=== PATIENT | male | born 1945 | race Caucasian/White ===

== ENCOUNTER 2022-08-24 11:36 | Inpatient (IN) ==
[2022-08-24 12:24] LABS: Appearance Urine Clear (Clear); Bilirubin Urine Negative (Negative); Blood Urine Negative (Negative); Color Urine Yellow; Glucose Urine UA 1+ (Negative); Ketones Urine Negative (Negative); Leukocyte Esterase Urine Negative (Negative); Nitrite Urine Negative (Negative); Protein Urine Negative (Negative); Urobilinogen Urine Negative (Negative)
[2022-08-24] MEDS ORDERED: SODIUM CHLORIDE 0.9% 500 ML IV ONE (12:28)
--- NOTE | 2022-08-24 12:32 | Emergency Department Note ---
History of Present Illness General Chief complaint: Dehydration Stated complaint: DR HOANG, DEHYDRATION Time Seen by Provider: 08/24/22 12:16 Source: patient, RN notes reviewed and old records reviewed (I have reviewed the records from the [facility] office visit today) Mode of arrival: ambulatory Limitations: no limitations History of Present Illness This patient comes in after being sent over from his primary care doctor's office. He has multiple issues going on they were concerned about labs and the need for imaging and further evaluation. The patient says he has not felt well about 18 months they did recent labs which showed worsening of his renal insufficiency they are also worried about his pancreas. They said his liver functions been up a little bit lately. He is lost 7 pounds since June he also has had some dark stool since yesterday which he says is tarry he is felt lightheaded and dizzy for the last several weeks denies chest pain shortness of breath or cough. No focal numbness weakness no fall or trauma no vomiting. He has been having stomach issues after being on chronic Augmentin for the last 7 to 8 months and they put him on omeprazole 20 mg to increase this to 40 he was getting worse he said they took him off of it now he is 80% better. Home Medications Medication Instructions Recorded Confirmed Type ascorbic acid (vitamin C) 500 mg 500 mg PO DAILY 11/08/21 08/24/22 History tablet (Vitamin C) aspirin 81 mg tablet,delayed 81 mg PO DAILY 11/08/21 08/24/22 History release atorvastatin 40 mg tablet 40 mg PO DAILY 11/08/21 08/24/22 History cholecalciferol (vitamin D3) 50 50 mcg PO DAILY 11/08/21 08/24/22 History mcg (2,000 unit) capsule (Vitamin D3) coQ10 (ubiquinol) 200 mg capsule 200 mg PO DAILY 11/08/21 08/24/22 History docusate sodium 100 mg capsule 100 mg PO BID PRN Constipation 11/08/21 08/24/22 History dulaglutide 1.5 mg/0.5 mL 3 mg subcut WK 11/08/21 08/24/22 History subcutaneous pen injector (Trulicity) ferrous sulfate 325 mg (65 mg 325 mg PO DAILY 11/08/21 08/24/22 History iron) tablet insulin glargine 100 unit/mL (3 30 unit subcut HS 11/08/21 08/24/22 History mL) subcutaneous pen (Lantus Solostar U-100 Insulin) levothyroxine 88 mcg tablet 88 mcg PO DAILYBB 11/08/21 08/24/22 History metoprolol succinate 100 mg 100 mg PO BID 11/08/21 08/24/22 History tablet,extended release 24 hr nitroglycerin 0.4 mg sublingual 0.4 mg sublingual DIRECTED PRN 11/08/21 08/24/22 History tablet (Nitrostat) Chest Pain omega 3-xoh-kcq-fish oil 1,200 mg 1 cap PO DAILY 11/08/21 08/24/22 History (144 mg-216 mg) capsule (Fish Oil) ondansetron HCl 4 mg tablet 4 mg PO Q8H PRN Nausea 11/08/21 08/24/22 History polyethylene glycol 3350 17 17 g PO DAILY PRN Constipation 11/08/21 08/24/22 History gram/dose oral powder (Miralax) Lactobacillus acidophilus 10 10,000 mmu cells PO DAILY 08/24/22 08/24/22 History billion cell capsule (Probiotic) amoxicillin 500 mg capsule 2,000 mg PO BID 08/24/22 08/24/22 History dicyclomine 10 mg capsule 10 mg PO BID PRN ABD CRAMPING 08/24/22 08/24/22 History furosemide 20 mg tablet 20 mg PO QAM 08/24/22 08/24/22 History losartan 25 mg tablet 12.5 mg PO QAM 08/24/22 08/24/22 History rivaroxaban 20 mg tablet (Xarelto) 20 mg PO QDD 08/24/22 08/24/22 History Allergies Allergy/AdvReac Type Severity Reaction Status Date / Time Sulfa (Sulfonamide Allergy Unknown CHILDHOOD Verified 08/24/22 16:46 Antibiotics) ALLERGY--CAN'T REMEMBER tramadol AdvReac Severe SEVERE Verified 08/24/22 16:46 VOMITING omeprazole AdvReac Intermediate PER PT Verified 08/24/22 16:47 "DID THE OPPOSITE, MADE ME WORSE". 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 w/ L 2 L & R 2 L collats Chylothorax Diabetes mellitus Hyperlipidemia Hypertension Hypothyroid Ischemic cardiomyopathy LVEF 30% post CABG; GRADE I diastolic dysfunction, NYHA class 2 Surgical History History of coronary artery bypass graft CABG x 3 (PAEZ -LAD; AO-RCA; AO-OM1 w/ graphic SVG on 05/30/2021 Family History (Updated 08/24/22 @ 19:16 by [place] Haynes PA-C) Other Heart disease Social History (Updated 08/24/22 @ 18:20 by [place] Haynes PA-C) Smoking Status: Former smoker Tobacco Type: Cigarettes packs per day: 1; Hx Alcohol Use: Yes (no current use) Hx Substance Use: No Preferred Language: Dutch Current Living Situation: Spouse Feels Safe at Home: Yes Review of Systems A total of 10 systems reviewed and were otherwise negative Physical Exam Vital Signs Vital Signs - 24 hr 08/24/22 11:43 08/24/22 12:16 08/24/22 12:30 Temperature 36 C L Temperature Source Temporal Artery Scan Pulse Rate 82 79 75 Respiratory Rate 20 13 Respiratory Effort / Characteristics Non-Labored Spontaneous Respiratory Depth Normal Blood Pressure 116/62 112/62 Blood Pressure Mean 80 78 Pulse Oximetry 100 100 Oxygen Delivery Method Room Air Room Air Sepsis New/Unexplained Change in Mental Status N/A Sepsis Action Taken by Nursing No Action Required 08/24/22 13:00 08/24/22 13:30 08/24/22 14:00 Temperature Temperature Source Pulse Rate 73 74 73 Respiratory Rate 19 8 L 12 Respiratory Effort / Characteristics Respiratory Depth Blood Pressure 116/66 113/60 104/55 L Blood Pressure Mean 82 77 71 Pulse Oximetry 99 100 98 Oxygen Delivery Method Room Air Room Air Room Air Sepsis New/Unexplained Change in Mental Status Sepsis Action Taken by Nursing 08/24/22 14:30 08/24/22 15:00 08/24/22 15:30 Temperature Temperature Source Pulse Rate 83 68 65 Respiratory Rate 20 16 10 L Respiratory Effort / Characteristics Respiratory Depth Blood Pressure 113/58 L 115/57 L 112/59 L Blood Pressure Mean 76 76 76 Pulse Oximetry 100 100 100 Oxygen Delivery Method Room Air Room Air Room Air Sepsis New/Unexplained Change in Mental Status Sepsis Action Taken by Nursing 08/24/22 16:00 08/24/22 16:50 08/24/22 17:00 Temperature Temperature Source Pulse Rate 73 81 78 Respiratory Rate 14 13 12 Respiratory Effort / Characteristics Respiratory Depth Blood Pressure 119/65 111/57 L 114/57 L Blood Pressure Mean 83 75 76 Pulse Oximetry 100 100 100 Oxygen Delivery Method Room Air Room Air Room Air Sepsis New/Unexplained Change in Mental Status Sepsis Action Taken by Nursing 08/24/22 17:30 08/24/22 18:00 08/24/22 18:30 Temperature Temperature Source Pulse Rate 78 79 89 Respiratory Rate 12 19 17 Respiratory Effort / Characteristics Respiratory Depth Blood Pressure 114/58 L 114/63 143/87 H Blood Pressure Mean 76 80 105 Pulse Oximetry 100 100 100 Oxygen Delivery Method Room Air Room Air Room Air Sepsis New/Unexplained Change in Mental Status Sepsis Action Taken by Nursing General: Well developed well nourished 10 acutely ill-appearing older male who in no acute distress, breathing comfortably on room air. Normal speech HEENT: Normal cephalic atraumatic. Pupils are equal round and reactive to light. Extraocular movements are intact. Oropharynx is pink with moist mucous membranes. No swelling of the mouth lips or tongue. Neck: Supple with a midline trachea. No meningeal signs or stiffness, no JVD or bruits. No Stridor. Chest: Clear to auscultation bilaterally. No wheezes or rhonchi. No increased work of breathing. Heart: Regular rate and rhythm. He does have a 2 out of 6 systolic murmur Abdomen: Soft nontender, nondistended without rebound guarding or rigidity. Extremities: No cyanosis clubbing or edema. No calf tenderness or assymetry Spine/Back. Non tender to palpation. No CVA tenderness Skin: Good turgor without rashes. Neurologic exam: Cranial nerves two through 12 are intact. Motor and sensation are intact and symmetrical throughout. Course Administered Medications Discontinued Medications Sodium Chloride (Nss) 500 mls @ 999 mls/hr IV .Q31M ONE Stop: 08/24/22 12:58 Last Infusion: 08/24/22 13:35 Dose: 0 mls/hr Documented By: Admin: 08/24/22 12:53 Dose: 999 mls/hr Documented By: KJ Medical Decision Making Differential Diagnosis Dehydration, infection, anemia, GI bleed, GI illness, pancreatitis, electrolyte or metabolic abnormality, sepsis Medical Records Attestation: I reviewed the patient's medical records. Home Medications Current Medication List: was personally reviewed by me Laboratory Data Attestation: I reviewed the patient's lab results. 08/24/22 11:55 08/24/22 11:55 Lab Results 08/24/22 08/24/22 08/24/22 Range/Units 11:55 11:55 11:55 WBC 4.15 L (4.8-10.8) K/ul RBC 4.17 L (4.70-6.10) M/uL Hgb 12.1 L (14.0-18.0) g/dl Hct 36.6 L (42.0-52.0) % MCV 87.8 (80.0-100.0) fL MCH 29.0 (25.0-34.0) pg MCHC 33.1 (32.0-36.0) g/dL RDW Std Deviation 43.8 (36.4-46.3) fL RDW Coeff of Lencho 13.7 (11.5-14.5) % Plt Count 180 (130-400) K/uL MPV 11.3 (9.4-12.4) fL Immature Gran % (Auto) 0.2 % Neut % (Auto) 63.7 % Lymph % (Auto) 20.7 % [place] % (Auto) 12.8 % Eos % (Auto) 1.2 % Baso % (Auto) 1.4 % Neut # (Auto) 2.64 (1.40-6.50) K/uL Lymph # (Auto) 0.86 L (1.2-3.4) K/uL [place] # (Auto) 0.53 (0.11-0.59) K/uL Eos # (Auto) 0.05 (0-0.50) K/uL Baso # (Auto) 0.06 (0-0.2) K/uL Immature Gran # (Auto) 0.01 (0.01-0.20) K/uL PT 11.9 (9.0-12.0) Seconds INR 1.1 (0.9-1.1) APTT 32.8 H (21.0-31.0) Seconds PTT Ratio 1.2 Sodium 133 L (136-145) mmol/L Potassium 4.4 (3.5-5.1) mmol/L Chloride 102 (98-107) mmol/L Carbon Dioxide 25 (21-32) mmol/L Anion Gap 6 (3-11) BUN 53 H (6-23) mg/dl Creatinine 2.04 H (0.6-1.4) mg/dl Est Cr Clr Drug Dosing Not Reportable Est GFR ( Amer) 35.9 ml/min Est GFR (Non-Af Amer) 31.0 ml/min BUN/Creatinine Ratio 26.0 H (10-20) Glucose 201 H (70-99(Fasting)) mg/dl Calcium 10.3 H (8.5-10.1) mg/dl Total Bilirubin 0.9 (0.2-1.0) mg/dl AST 19 (13-39) U/L ALT 24 (7-52) U/L Alkaline Phosphatase 116 H (34-104) U/L Troponin I High Sens (0-20) pg/ml Total Protein 6.9 (6.0-8.3) gm/dl Albumin 4.3 (3.4-5.0) gm/dl Globulin 2.6 (2.5-4.0) gm/dl Albumin/Globulin Ratio 1.7 (0.9-2) Lipase (11-82) U/L Urine Color Urine Appearance (Clear) Urine pH (4.5-7.5) Ur Specific Harris (1.000-1.030) Urine Protein (Negative) Urine Glucose (UA) (Negative) Urine Ketones (Negative) Urine Blood (Negative) Urine Nitrite (Negative) Urine Bilirubin (Negative) Urine Urobilinogen (Negative) Ur Leukocyte Esterase (Negative) SARS-CoV-2, RNA, NAAT (NEGATIVE) Blood Type Antibody Screen 08/24/22 08/24/22 08/24/22 Range/Units 11:57 12:35 12:35 WBC (4.8-10.8) K/ul RBC (4.70-6.10) M/uL Hgb (14.0-18.0) g/dl Hct (42.0-52.0) % MCV (80.0-100.0) fL MCH (25.0-34.0) pg MCHC (32.0-36.0) g/dL RDW Std Deviation (36.4-46.3) fL RDW Coeff of Lencho (11.5-14.5) % Plt Count (130-400) K/uL MPV (9.4-12.4) fL Immature Gran % (Auto) % Neut % (Auto) % Lymph % (Auto) % [place] % (Auto) % Eos % (Auto) % Baso % (Auto) % Neut # (Auto) (1.40-6.50) K/uL Lymph # (Auto) (1.2-3.4) K/uL [place] # (Auto) (0.11-0.59) K/uL Eos # (Auto) (0-0.50) K/uL Baso # (Auto) (0-0.2) K/uL Immature Gran # (Auto) (0.01-0.20) K/uL PT (9.0-12.0) Seconds INR (0.9-1.1) APTT (21.0-31.0) Seconds PTT Ratio Sodium (136-145) mmol/L Potassium (3.5-5.1) mmol/L Chloride (98-107) mmol/L Carbon Dioxide (21-32) mmol/L Anion Gap (3-11) BUN (6-23) mg/dl Creatinine (0.6-1.4) mg/dl Est Cr Clr Drug Dosing Est GFR ( Amer) ml/min Est GFR (Non-Af Amer) ml/min BUN/Creatinine Ratio (10-20) Glucose (70-99(Fasting)) mg/dl Calcium (8.5-10.1) mg/dl Total Bilirubin (0.2-1.0) mg/dl AST (13-39) U/L ALT (7-52) U/L Alkaline Phosphatase (34-104) U/L Troponin I High Sens 6.5 (0-20) pg/ml Total Protein (6.0-8.3) gm/dl Albumin (3.4-5.0) gm/dl Globulin (2.5-4.0) gm/dl Albumin/Globulin Ratio (0.9-2) Lipase 48 (11-82) U/L Urine Color Yellow Urine Appearance Clear (Clear) Urine pH 5.0 (4.5-7.5) Ur Specific Harris 1.020 (1.000-1.030) Urine Protein Negative (Negative) Urine Glucose (UA) 1+ H (Negative) Urine Ketones Negative (Negative) Urine Blood Negative (Negative) Urine Nitrite Negative (Negative) Urine Bilirubin Negative (Negative) Urine Urobilinogen Negative (Negative) Ur Leukocyte Esterase Negative (Negative) SARS-CoV-2, RNA, NAAT (NEGATIVE) Blood Type A Positive Antibody Screen NEGATIVE 08/24/22 Range/Units 12:47 WBC (4.8-10.8) K/ul RBC (4.70-6.10) M/uL Hgb (14.0-18.0) g/dl Hct (42.0-52.0) % MCV (80.0-100.0) fL MCH (25.0-34.0) pg MCHC (32.0-36.0) g/dL RDW Std Deviation (36.4-46.3) fL RDW Coeff of Lencho (11.5-14.5) % Plt Count (130-400) K/uL MPV (9.4-12.4) fL Immature Gran % (Auto) % Neut % (Auto) % Lymph % (Auto) % [place] % (Auto) % Eos % (Auto) % Baso % (Auto) % Neut # (Auto) (1.40-6.50) K/uL Lymph # (Auto) (1.2-3.4) K/uL [place] # (Auto) (0.11-0.59) K/uL Eos # (Auto) (0-0.50) K/uL Baso # (Auto) (0-0.2) K/uL Immature Gran # (Auto) (0.01-0.20) K/uL PT (9.0-12.0) Seconds INR (0.9-1.1) APTT (21.0-31.0) Seconds PTT Ratio Sodium (136-145) mmol/L Potassium (3.5-5.1) mmol/L Chloride (98-107) mmol/L Carbon Dioxide (21-32) mmol/L Anion Gap (3-11) BUN (6-23) mg/dl Creatinine (0.6-1.4) mg/dl Est Cr Clr Drug Dosing Est GFR ( Amer) ml/min Est GFR (Non-Af Amer) ml/min BUN/Creatinine Ratio (10-20) Glucose (70-99(Fasting)) mg/dl Calcium (8.5-10.1) mg/dl Total Bilirubin (0.2-1.0) mg/dl AST (13-39) U/L ALT (7-52) U/L Alkaline Phosphatase (34-104) U/L Troponin I High Sens (0-20) pg/ml Total Protein (6.0-8.3) gm/dl Albumin (3.4-5.0) gm/dl Globulin (2.5-4.0) gm/dl Albumin/Globulin Ratio (0.9-2) Lipase (11-82) U/L Urine Color Urine Appearance (Clear) Urine pH (4.5-7.5) Ur Specific Harris (1.000-1.030) Urine Protein (Negative) Urine Glucose (UA) (Negative) Urine Ketones (Negative) Urine Blood (Negative) Urine Nitrite (Negative) Urine Bilirubin (Negative) Urine Urobilinogen (Negative) Ur Leukocyte Esterase (Negative) SARS-CoV-2, RNA, NAAT NEGATIVE (NEGATIVE) Blood Type Antibody Screen Imaging Data Attestation: I personally reviewed and interpreted this imaging study as follows: My Impression: Chest x-ray-no acute infiltrate, failure, pneumothorax. No free air seen upon my evaluation Radiologist's Impression: Chest X-Ray 08/24/22 12:29 XR chest 1V portable HISTORY: 76 years-old Male abd pain acute chest and abdominal pain COMPARISON: Chest radiograph 12/12/2021 TECHNIQUE: AP view of the chest FINDINGS: Cardiac silhouette is enlarged. Prior median sternotomy. No pneumothorax, pleural effusion, airspace consolidation or overt edema. Degenerative changes of the shoulders and spine. IMPRESSION: No acute process. ACT 112: Negative or not required by law. The above report was generated using voice recognition software. It may contain grammatical, syntax or spelling errors. Electronically signed by: Zackary Roman M.D. 08/24/2022 1:30 PM Abdomen/Pelvis CT 08/24/22 13:51 CT abd pelvis wo con CLINICAL HISTORY: abd pain, worsening LFTs renal TECHNIQUE: Helical axial images of the abdomen and pelvis were obtained. Automated dose lowering techniques and/or adjustment according to patient size were utilized for this exam. This exam was performed without intravenous contrast. CT DOSE: 680.34 mGycm COMPARISON: None available at the time of this dictation. FINDINGS: Lower chest: Bibasilar atelectasis versus scarring is seen. Liver: Multiple calcifications are seen which may represent prior granulomatous disease. Gallbladder and biliary tree: Patient is status post cholecystectomy. No intra- or extrahepatic biliary ductal dilation. Pancreas: Unremarkable, no focal lesions. Spleen: Calcifications are noted in the spleen compatible with prior granulomatous disease. The spleen is enlarged measuring 16 mm in craniocaudal dimension. Adrenals: Nodular contour of the bilateral adrenal glands. Kidneys and ureters: Nonobstructive stones are seen. Bilateral renal cysts are noted. Bladder: Unremarkable. Reproductive organs: Prostatomegaly is seen. Bowel: Diverticulosis is seen without evidence of diverticulitis. The appendix is normal. There may be a small hiatal hernia. Lymph nodes Retroperitoneal: Unremarkable. Pelvic: Unremarkable. Mesenteric: Unremarkable. Peritoneum: Normal. Vessels: Atherosclerotic calcifications are seen. Abdominal wall: Fat-containing left inguinal hernia is seen. Bones: Degenerative changes in the visualized spine. IMPRESSION: No acute abnormalities are seen. Incidental findings as above. ACT 112: Negative or not required by law. Electronically signed by: Willy Renae M.D. 08/24/2022 4:51 PM ECG Data Attestation: I personally reviewed and interpreted this ECG as follows: Indication: + abdominal pain Rate (beats per minute): 74 Rhythm: + normal sinus and + other (Poor baseline) ECG Intervals/blocks: + First degree AV block, + Right Bundle branch block and + Normal QT ECG [place]: + Normal ECG ST segments: + Normal ST segments ECG Findings: no PACs or no PVCs Comparison ECG Date: from (12/12/2021) Change: no significant change MDM Narrative This patient comes in as described above. He was placed on a personnel monitor in room before. I have reviewed to reviewed outside old medical records from [facility] visit today. He does have a very complex medical history. I have ordered labs he was hydrated with IV normal saline 500 cc IV bolus. multiple blood testing was obtained. EKG was obtained and he was reassessed frequently. He has remained stable. His BUN and creatinine are elevated and this may be more prerenal but unfortunately I cannot get a CAT scan with his creatinine greater than 2. His liver functions are not significantly elevated here. He reports that he has had some dark stools however his hemoglobin is stable and greater than the last one here. His lipase is unremarkable. EKG and cardiac biomarkers are unremarkable and does not suggest acute cardiac event. He has been hydrated with normal saline. I have consulted the [facility] hospitalist team and talk to [place] [facility] hospitalist at length and explained the case and my concerns. The patient will be admitted for further treatment and evaluation. Continuous cardiac monitoring: Orders placed in EMR for continuous cardiac monitoring. Upon my interpretation the patient was noted to be in normal sinus rhythm rate of 75 Impression & Plan Abdominal pain, Diabetes mellitus, Dehydration, Acute renal insufficiency, Lab test negative for COVID-19 virus Discharge Plan Visit Data Chief Complaint: Dehydration Stated Complaint: DR HOANG, DEHYDRATION ED Provider: Hernandez Leo Discharge Problem: Abdominal pain, Diabetes mellitus, Dehydration, Acute renal insufficiency, Lab test negative for COVID-19 virus Forms Stand Alone Forms: My [facility] Prescriptions Prescriptions: No Action amoxicillin 500 mg capsule 2,000 mg PO BID losartan 25 mg tablet 12.5 mg PO QAM furosemide 20 mg tablet 20 mg PO QAM dicyclomine 10 mg capsule 10 mg PO BID PRN (Reason: ABD CRAMPING) Xarelto 20 mg tablet 20 mg PO QDD Probiotic 10 billion cell Capsule 10,000 mmu cells PO DAILY atorvastatin 40 mg Tablet 40 mg PO DAILY ondansetron HCl [Zofran] 4 mg Tablet 4 mg PO Q8H PRN (Reason: Nausea) metoprolol succinate 100 mg Tablet Extended Release 24 Hr 100 mg PO BID aspirin 81 mg Tablet,Delayed Release (Dr/Ec) 81 mg PO DAILY levothyroxine 88 mcg Tablet 88 mcg PO DAILYBB ascorbic acid (vitamin C) [Vitamin C] 500 mg Tablet 500 mg PO DAILY ferrous sulfate 325 mg (65 mg iron) Tablet 325 mg PO DAILY nitroglycerin [Nitrostat] 0.4 mg Tablet, Sublingual 0.4 mg sublingual DIRECTED PRN (Reason: Chest Pain) docusate sodium 100 mg Capsule 100 mg PO BID PRN (Reason: Constipation) polyethylene glycol 3350 [Miralax] 17 gram/dose Powder 17 g PO DAILY PRN (Reason: Constipation) insulin glargine [Lantus Solostar U-100 Insulin] 100 unit/mL (3 mL) Insulin Pen 30 unit SUBCUT HS cholecalciferol (vitamin D3) [Vitamin D3] 50 mcg (2,000 unit) Capsule 50 mcg PO DAILY omega 5-irc-cux-fish oil [Fish Oil] 1,200 (144-216) mg Capsule 1 cap PO DAILY coQ10 (ubiquinol) 200 mg Capsule 200 mg PO DAILY Trulicity 1.5 mg/0.5 mL Pen Injector 3 mg SUBCUT WK Rx Instructions: TAKES ON SUNDAY EVENING Referrals Referrals: Lia Meadows MD [Primary Care Provider] -
[2022-08-24 12:36] LABS: Basophils # (auto) 0.06 K/uL (0-0.2); Basophils % (auto) 1.4 %; Eosinophils # (auto) 0.05 K/uL (0-0.50); Eosinophils % (auto) 1.2 %; Hematocrit (blood only) 36.6 % (42.0-52.0); Hemoglobin 12.1 g/dl (14.0-18.0); Immature Granulocytes # (auto) 0.01 K/uL (0.01-0.20); Immature Granulocytes % (auto) 0.2 %; Lymphocytes # (auto) 0.86 K/uL (1.2-3.4); Lymphocytes % (auto) 20.7 %; Mean Corpuscular Hgb Conc 33.1 g/dL (32.0-36.0); Mean Corpuscular Volume 87.8 fL (80.0-100.0); Mean Platelet Volume 11.3 fL (9.4-12.4); Monocytes # (auto) 0.53 K/uL (0.11-0.59); Monocytes % (auto) 12.8 %; Neutrophils # (auto) 2.64 K/uL (1.40-6.50); Neutrophils % (auto) 63.7 %; Platelet Count 180 K/uL (130-400); RDW Coefficient of Variation 13.7 % (11.5-14.5); RDW Standard Deviation 43.8 fL (36.4-46.3); Red Blood Count 4.17 M/uL (4.70-6.10); White Blood Count 4.15 K/ul (4.8-10.8)
[2022-08-24 12:53] LABS: INR 1.1 (0.9-1.1); Partial Thromboplastin Ratio 1.2; Partial Thromboplastin Time 32.8 Seconds (21.0-31.0); Prothrombin Time 11.9 Seconds (9.0-12.0)
[2022-08-24 12:55] LABS: Albumin Level 4.3 gm/dl (3.4-5.0); Anion Gap 6 (3-11); Bilirubin,Total 0.9 mg/dl (0.2-1.0); Calcium 10.3 mg/dl (8.5-10.1); Carbon Dioxide 25 mmol/L (21-32); Chloride 102 mmol/L (98-107); Potassium 4.4 mmol/L (3.5-5.1); Sodium 133 mmol/L (136-145)
[2022-08-24 13:01] LABS: Alanine Aminotransferase 24 U/L (7-52); Albumin Globulin Ratio 1.7 (0.9-2); Alkaline Phosphatase 116 U/L (34-104); Aspartate Aminotransferase 19 U/L (13-39); Blood Urea Nitrogen 53 mg/dl (6-23); Est GFR (African American) 35.9 ml/min; Globulin 2.6 gm/dl (2.5-4.0); Glucose 201 mg/dl (70-99(Fasting)); Total Protein 6.9 gm/dl (6.0-8.3)
--- NOTE | 2022-08-24 13:31 | XRay Report ---
XR chest 1V portable HISTORY: 76 years-old Male abd pain acute chest and abdominal pain COMPARISON: Chest radiograph 12/12/2021 TECHNIQUE: AP view of the chest FINDINGS: Cardiac silhouette is enlarged. Prior median sternotomy. No pneumothorax, pleural effusion, airspace consolidation or overt edema. Degenerative changes of the shoulders and spine. IMPRESSION: No acute process. ACT 112: Negative or not required by law. The above report was generated using voice recognition software. It may contain grammatical, syntax o r spelling errors. Electronically signed by: Zackary Roman M.D. 08/24/2022 1:30 PM
[2022-08-24 14:06] LABS: Troponin I High Sensitivity 6.5 pg/ml (0-20)
--- NOTE | 2022-08-24 14:30 | Electrocardiogram Report ---
Test Reason : Blood Pressure : / mmHG Vent. Rate : 074 BPM Atrial Rate : 074 BPM P-R Int : 248 ms QRS Dur : 124 ms QT Int : 424 ms P-R-T Axes : 000 048 029 degrees QTc Int : 470 ms Sinus rhythm with 1st degree A-V block Right bundle branch block Abnormal ECG When compared with ECG of 12-DEC-2021 16:21, No significant change was found Confirmed by Ivan Penn ([id number]) on 08/24/2022 2:29:40 PM Referred By: Lia Meadows Confirmed By:Mina Penn
--- NOTE | 2022-08-24 16:52 | CT Scan Report ---
CT abd pelvis wo con CLINICAL HISTORY: abd pain, worsening LFTs renal TECHNIQUE: Helical axial images of the abdomen and pelvis were obtained. Automated dose lowering tech niques and/or adjustment according to patient size were utilized for this exam. This exam was perfor med without intravenous contrast. CT DOSE: 680.34 mGycm COMPARISON: None available at the time of this dictation. FINDINGS: Lower chest: Bibasilar atelectasis versus scarring is seen. Liver: Multiple calcifications are seen which may represent prior granulomatous disease. Gallbladder and biliary tree: Patient is status post cholecystectomy. No intra- or extrahepatic bilia ry ductal dilation. Pancreas: Unremarkable, no focal lesions. Spleen: Calcifications are noted in the spleen compatible with prior granulomatous disease. The splee n is enlarged measuring 16 mm in craniocaudal dimension. Adrenals: Nodular contour of the bilateral adrenal glands. Kidneys and ureters: Nonobstructive stones are seen. Bilateral renal cysts are noted. Bladder: Unremarkable. Reproductive organs: Prostatomegaly is seen. Bowel: Diverticulosis is seen without evidence of diverticulitis. The appendix is normal. There may b e a small hiatal hernia. Lymph nodes Retroperitoneal: Unremarkable. Pelvic: Unremarkable. Mesenteric: Unremarkable. Peritoneum: Normal. Vessels: Atherosclerotic calcifications are seen. Abdominal wall: Fat-containing left inguinal hernia is seen. Bones: Degenerative changes in the visualized spine. IMPRESSION: No acute abnormalities are seen. Incidental findings as above. ACT 112: Negative or not required by law. Electronically signed by: Willy Renae M.D. 08/24/2022 4:51 PM
--- NOTE | 2022-08-24 17:31 | History & Physical Report ---
Date of Service August 24, 2022 Assessment & Plan (1) DELIA (acute kidney injury): (2) Diabetes mellitus: Plan This is a 76-year-old male has complex significant past medical history of CAD status post CABG x3 (PAEZ to LAD, AO to RCA, AO to OM1 05/2021), ischemic cardiomyopathy LVEF 30% postop CABG which has since recovered with most recent echocardiogram in 2021 revealing preserved EF, PAF postoperative CABG, history of multiple small CVA involving left anterior frontal lobe and left posterior temporal lobe following surgery, RBBB, HTN, HLD, T2DM, hypothyroidism, mild aortic sclerosis, mild mitral valve leaflet prolapse with mild MR, history of chronic use of Xarelto in setting of possible CVA, history of moderate size left pleural effusion post CABG, status post thoracentesis with recurrent left pleural effusion requiring multiple hospitalizations status post thoracic duct embolization 09/06/[address] 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 Over the past month patient had a gradual increase in renal function. In December 2021 was 1.2, then July 2022 1.6 and today 2.04. No significant medication changes over the past month. Patient overall has had diminished oral intake in setting of dysphagia, lack of appetite and recent complex medical history. DEILA Admit to telemetry Hold Lasix, losartan and avoid nephrotoxic agents will give fluid challenge at 75 cc/h x 1 L He did receive 1 L of IV fluid in ED as well Repeat BMP in a.m. 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 due to complex hospitalization from coronary bypass Recently Augmentin was switched to amoxicillin due to patient planing of GI symptom he is to follow with ID Gastroesophageal reflux disease Follows with GI, recent upper GI June 2022 was dilatation Recommended patient be on lifelong PPI, however he stopped this and feels his symptoms have improved slightly He is also on Bentyl will need to continue to follow with GI as outpatient CAD with history of CABG x3 History of ischemic cardiomyopathy with most recent echocardiogram revealing preserved EF PAF RBBB HTN HLD Continue aspirin, statin, co-Q10, metoprolol Hold losartan and Lasix in setting of DELIA History of CVA On ASA, statin and Xarelto Renally dose Xarelto DVT prophylaxis: Xarelto, currently being renally dosed, once DELIA resolves resume 20 mg at dinner Full code PCP: Dori Dispo: Telemetry Patient was seen and examined in collaboration with, please see addendum A total of 90 minutes were spent with greater than 50% of that time face to face with the patient, personally reviewing all current laboratories, imaging studies, past medication reconciliation, outpatient chart review, and discussion with specialists to collaborate care for the patient with attending. Please see attending documentation for corrections and/or additions. History of Present Illness Chief Complaint: Referred by PCP. Primary Care Provider: Lia Meadows MD This is a 76-year-old male has complex significant past medical history of CAD status post CABG x3 (PAEZ to LAD, AO to RCA, AO to OM1 05/2021), ischemic cardiomyopathy LVEF 30% postop CABG which has since recovered with most recent echocardiogram in 2021 revealing preserved EF, PAF postoperative CABG, hist ory of multiple small CVA involving left anterior frontal lobe and left posterior temporal lobe following surgery, RBBB, HTN, HLD, T2DM, hypothyroidism, mild aortic sclerosis, mild mitral valve leaflet prolapse with mild MR, history of chronic use of Xarelto in setting of possible CVA, history of moderate size left pleural effusion post CABG, status post thoracentesis with recurrent left pleural effusion requiring multiple hospitalizations status post thoracic duct embolization 09/06/[address] 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 He had recently underwent upper GI study which required dilatation in June 2022. Approximately 1 month ago he was noted to have a new renal dysfunction and repeat labs have shown further worsening. He was seen and evaluated today by outpatient provider who recommended ER evaluation. Of significance he has been on Augmentin since December 2021 after being diagnosed with actinomyces infection. Most recently he has been switched to amoxicillin 2 g twice daily due to GI symptoms. He reports generally not feeling well ever since his complicated hospital course. He complains of neck and intermittent chest pain. He denies any exertion. Sx mostly are when he is on his back and at night. Its improved if he gets up and sits in chair. Its also worse with eating. HE has had decreased appetite since recent illness/surgery. His sx improved when he stopped prilosec and started bentyl. He is also concerned that ever since his levothyroxine was increased to 88 mcg that he has been having this neck pain and it might be related. He denies f/c/s, dizziness, lightheaded, n/v, dysuria, increased urg/freq, hematuria or diarrhea. He states last stool he had was black and tarry. This occurred yesterday a.m. Overall poor appetite and has not been eating and drinking well. Most recent medication changes including Augmentin switched to amoxicillin and stopping omeprazole and starting Bentyl. He has been taking his medications as prescribed. Previous smoker 1 ppd x 20 years. Previous ETOH user but does not now. Denies recreational drug use. In ED patient made hemodynamically stable. He was found have an DELIA with BUN of 53 and creatinine of 2.04. His CBC revealed low WBC of 4.15, H&H 12.1 and 36.6. His urinalysis revealed +1 glucose but otherwise negative. CT abdomen pelvis and chest x-ray were negative for any acute abnormality. He received IV fluid Allergies Allergy/AdvReac Type Severity Reaction Status Date / Time Sulfa (Sulfonamide Allergy Unknown CHILDHOOD Verified 08/24/22 16:46 Antibiotics) ALLERGY--CAN'T REMEMBER tramadol AdvReac Severe SEVERE Verified 08/24/22 16:46 VOMITING omeprazole AdvReac Intermediate PER PT Verified 08/24/22 16:47 "DID THE OPPOSITE, MADE ME WORSE". Home Medications Medication Instructions Recorded Confirmed Type ascorbic acid (vitamin C) 500 mg 500 mg PO DAILY 11/08/21 08/24/22 History tablet (Vitamin C) aspirin 81 mg tablet,delayed 81 mg PO DAILY 11/08/21 08/24/22 History release atorvastatin 40 mg tablet 40 mg PO DAILY 11/08/21 08/24/22 History cholecalciferol (vitamin D3) 50 50 mcg PO DAILY 11/08/21 08/24/22 History mcg (2,000 unit) capsule (Vitamin D3) coQ10 (ubiquinol) 200 mg capsule 200 mg PO DAILY 11/08/21 08/24/22 History docusate sodium 100 mg capsule 100 mg PO BID PRN Constipation 11/08/21 08/24/22 History dulaglutide 1.5 mg/0.5 mL 3 mg subcut WK 11/08/21 08/24/22 History subcutaneous pen injector (Trulicity) ferrous sulfate 325 mg (65 mg 325 mg PO DAILY 11/08/21 08/24/22 History iron) tablet insulin glargine 100 unit/mL (3 30 unit subcut HS 11/08/21 08/24/22 History mL) subcutaneous pen (Lantus Solostar U-100 Insulin) levothyroxine 88 mcg tablet 88 mcg PO DAILYBB 11/08/21 08/24/22 History metoprolol succinate 100 mg 100 mg PO BID 11/08/21 08/24/22 History tablet,extended release 24 hr nitroglycerin 0.4 mg sublingual 0.4 mg sublingual DIRECTED PRN 11/08/21 08/24/22 History tablet (Nitrostat) Chest Pain omega 7-mec-ewr-fish oil 1,200 mg 1 cap PO DAILY 11/08/21 08/24/22 History (144 mg-216 mg) capsule (Fish Oil) ondansetron HCl 4 mg tablet 4 mg PO Q8H PRN Nausea 11/08/21 08/24/22 History polyethylene glycol 3350 17 17 g PO DAILY PRN Constipation 11/08/21 08/24/22 History gram/dose oral powder (Miralax) Lactobacillus acidophilus 10 10,000 mmu cells PO DAILY 08/24/22 08/24/22 History billion cell capsule (Probiotic) amoxicillin 500 mg capsule 2,000 mg PO BID 08/24/22 08/24/22 History dicyclomine 10 mg capsule 10 mg PO BID PRN ABD CRAMPING 08/24/22 08/24/22 History furosemide 20 mg tablet 20 mg PO QAM 08/24/22 08/24/22 History losartan 25 mg tablet 12.5 mg PO QAM 08/24/22 08/24/22 History rivaroxaban 20 mg tablet (Xarelto) 20 mg PO QDD 08/24/22 08/24/22 History Past Med/Surg History Medical History Atrial fibrillation Carotid artery stenosis MVD mRCA 90% w/ diffuse disease; 80% occlusion of pLAD w/ heavily calcified and 100% [employer] of l Cx w/ L 2 L & R 2 L collats Chylothorax Diabetes mellitus Hyperlipidemia Hypertension Hypothyroid Ischemic cardiomyopathy LVEF 30% post CABG; GRADE I diastolic dysfunction, NYHA class 2 Surgical History History of coronary artery bypass graft CABG x 3 (PAEZ -LAD; AO-RCA; AO-OM1 w/ graphic SVG on 05/30/2021 Family History (Updated 08/24/22 @ 19:16 by [place] Haynes PA-C) Other Heart disease Social History (Updated 08/24/22 @ 18:20 by [place] Haynes PA-C) Smoking Status: Former smoker Tobacco Type: Cigarettes packs per day: 1; Hx Alcohol Use: No Hx Substance Use: No Preferred Language: Portuguese Communication Ability: Effective Soaking Pit Operator Required: No Beliefs That Will Affect Care: None Current Living Situation: Spouse Feels Safe at Home: Yes Safety Concerns: Feels Safe At This Time Assistive Devices: Glasses Review of Systems Review of Systems: All systems reviewed & are unremarkable except as noted in HPI & below Physical Exam Physical Exam: Please refer to Dr. Clifton addendum for physical exam findings. Results & Data Results & Data ([facility]) Vital Signs (Past 12 Hours) Vital Signs Temp Pulse Resp BP Pulse Ox O2 Del Method 08/24/22 16:50 81 13 111/57 L 100 Room Air 08/24/22 16:00 73 14 119/65 100 Room Air 08/24/22 15:30 65 10 L 112/59 L 100 Room Air 08/24/22 15:00 68 16 115/57 L 100 Room Air 08/24/22 14:30 83 20 113/58 L 100 Room Air 08/24/22 14:00 73 12 104/55 L 98 Room Air 08/24/22 13:30 74 8 L 113/60 100 Room Air 08/24/22 13:00 73 19 116/66 99 Room Air 08/24/22 12:30 75 13 112/62 100 Room Air 08/24/22 12:16 79 02/16/23 11:43 36 C L 82 20 116/62 100 Room Air Diagnostic Findings Chest X-Ray 08/24/22 12:29 XR chest 1V portable HISTORY: 76 years-old Male abd pain acute chest and abdominal pain COMPARISON: Chest radiograph 12/12/2021 TECHNIQUE: AP view of the chest FINDINGS: Cardiac silhouette is enlarged. Prior median sternotomy. No pneumothorax, pleural effusion, airspace consolidation or overt edema. Degenerative changes of the shoulders and spine. IMPRESSION: No acute process. ACT 112: Negative or not required by law. The above report was generated using voice recognition software. It may contain grammatical, syntax or spelling errors. Electronically signed by: Zackary Roman M.D. 08/24/2022 1:30 PM Abdomen/Pelvis CT 08/24/22 13:51 CT abd pelvis wo con CLINICAL HISTORY: abd pain, worsening LFTs renal TECHNIQUE: Helical axial images of the abdomen and pelvis were obtained. Automated dose lowering techniques and/or adjustment according to patient size were utilized for this exam. This exam was performed without intravenous contr ast. CT DOSE: 680.34 mGycm COMPARISON: None available at the time of this dictation. FINDINGS: Lower chest: Bibasilar atelectasis versus scarring is seen. Liver: Multiple calcifications are seen which may represent prior granulomatous disease. Gallbladder and biliary tree: Patient is status post cholecystectomy. No intra- or extrahepatic biliary ductal dilation. Pancreas: Unremarkable, no focal lesions. Spleen: Calcifications are noted in the spleen compatible with prior granulomatous disease. The spleen is enlarged measuring 16 mm in craniocaudal dimension. Adrenals: Nodular contour of the bilateral adrenal glands. Kidneys and ureters: Nonobstructive stones are seen. Bilateral renal cysts are noted. Bladder: Unremarkable. Reproductive organs: Prostatomegaly is seen. Bowel: Diverticulosis is seen without evidence of diverticulitis. The appendix is normal. There may be a small hiatal hernia. Lymph nodes Retroperitoneal: Unremarkable. Pelvic: Unremarkable. Mesenteric: Unremarkable. Peritoneum: Normal. Vessels: Atherosclerotic calcifications are seen. Abdominal wall: Fat-containing left inguinal hernia is seen. Bones: Degenerative changes in the visualized spine. IMPRESSION: No acute abnormalities are seen. Incidental findings as above. ACT 112: Negative or not required by law. Electronically signed by: Willy Renae M.D. 08/24/2022 4:51 PM Medications Administered Medication List Discontinued Medications Sodium Chloride (Nss) 500 mls @ 999 mls/hr IV .Q31M ONE Stop: 08/24/22 12:58 Last Infusion: 08/24/22 13:35 Dose: 0 mls/hr Documented By: Admin: 08/24/22 12:53 Dose: 999 mls/hr Documented By: [facility] ECG Rate (beats per minute): 74 Rhythm: normal sinus Findings: + 1st degree AV block and + RBBB Additional Comments: reviewed by hi qtc 474ms COVID-19 Results Results COVID-19 Adm Lab Results: RBC 4.17 M/uL (4.70-6.10) L 08/24/22 WBC 4.15 K/ul (4.8-10.8) L 08/24/22 Hgb 12.1 g/dl (14.0-18.0) L 08/24/22 Hct 36.6 % (42.0-52.0) L 08/24/22 Plt Count 180 K/uL (130-400) 08/24/22 Neutrophils (%) (Auto) 63.7 % 08/24/22 Lymphocytes (%) (Auto) 20.7 % 08/24/22 Monocytes # (Auto) 0.53 K/uL (0.11-0.59) 08/24/22 Eosinophils # (Auto) 0.05 K/uL (0-0.50) 08/24/22 Immature Granulocyte % (Auto) 0.2 % 08/24/22 Neutrophils # (Auto) 2.64 K/uL (1.40-6.50) 08/24/22 Lymphocytes # (Auto) 0.86 K/uL (1.2-3.4) L 08/24/22 Monocytes # (Auto) 0.53 K/uL (0.11-0.59) 08/24/22 Eosinophils # (Auto) 0.05 K/uL (0-0.50) 08/24/22 Basophils # (Auto) 0.06 K/uL (0-0.2) 08/24/22 Immature Granulocyte # (Auto) 0.01 K/uL (0.01-0.20) 3 Na 133 mmol/L (136-145) L 08/24/22 K 4.4 mmol/L (3.5-5.1) 08/24/22 Cl 102 mmol/L (98-107) 08/24/22 CO2 25 mmol/L (21-32) 08/24/22 Anion Gap 6 (3-11) 08/24/22 BUN 53 mg/dl (6-23) H 08/24/22 Creatinine 2.04 mg/dl (0.6-1.4) H 08/24/22 BUN/Creatinine Ratio 26.0 (10-20) H 08/24/22 Glucose Level 201 mg/dl (70-99(Fasting)) H 08/24/22 Ca 10.3 mg/dl (8.5-10.1) H 08/24/22 Total Bilirubin 0.9 mg/dl (0.2-1.0) 08/24/22 AST/SGOT 19 U/L (13-39) 08/24/22 ALT/SGPT 24 U/L (7-52) 08/24/22 Alkaline Phosphatase 116 U/L (34-104) H 08/24/22 Total Protein 6.9 gm/dl (6.0-8.3) 08/24/22 Albumin 4.3 gm/dl (3.4-5.0) 08/24/22 Globulin 2.6 gm/dl (2.5-4.0) 08/24/22 Albumin/Globulin Ratio 1.7 (0.9-2) 08/24/22 PTT 32.8 Seconds (21.0-31.0) H 08/24/22 INR 1.1 (0.9-1.1) 08/24/22 SARS-CoV-2, RNA, NAAT NEGATIVE (NEGATIVE) 08/24/22 Chest X-Ray 08/24/22 Code Status & VTE Plan Code Status FULL CODE Supervising Physician Co-Signing Physician Notes Date of Service: August 24, 2022 History and physical exam performed by me. History notable for 76-year-old man with significant medical history including CABG in May 2021, postop recurrent pleural effusion and chylothorax, pericardial effusion, DM type II, proximal A-fib, hypothyroidism, hypertension who was sent into the ER by PCPs office for abnormal labs. Patient reports he has not been feeling great since after hospitalization 8 months ago at [place]. Reports mildly, persistent intermittent chest pain sometimes up to the left shoulder and left side of the neck, epigastric pain, usually worse at night and early mornings. Reports that epigastric pain usually resolves when he is sitting up and during the daytime. He has been followed up by GI and had EGD with EUS. 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 Reported epigastric pain improved after he stopped Carafate and Prilosec and started Bentyl. Reports poor appetite and intake due to these pain Reports occasional dark stool which he also reported to GI per outpt GI office note Outpatient lab works showed worsening of renal function over the past month compared to lab work last year. On physical exam General: No acute distress and not ill appearing Eyes: PERRL, conjunctivae normal, not pale, anicteric sclerae, EOM intact bilaterally ENMT: External ear and nose normal, oropharynx normal Respiratory: Normal respiratory effort, no respiratory distress, lungs clear to auscultation, no crackles and no wheezes Cardiovascular: RRR S1 S2 with systolic ejection murmur Chest (Breasts): Well healed anterior surgical scar Gastrointestinal (Abdomen): Abdomen is not distended, soft, non-tender to palpation, no guarding, no palpable hepatosplenomegaly, normal bowel sounds Musculoskeletal: No pedal edema Genitourinary: No CVA tendernesss Neurologic: Alert and oriented x 3, No focal weakness, sensation grossly intact Psychiatric: Euthymic affect Labs notable for hemoglobin of 12.1, creatinine of 2.04, calcium of 10.3 DELIA. Per review of previous lab results creatinine was 1-1.2 both in his [facility] and [facility] records prior to this year. Creatinine was 1.6 on 07/26/2022 and 2[address] abdomen and pelvis. Nonobstructive stones noted with some bilateral renal cyst Will give trial of gentle IVF and monitor renal function Hold home lasix for now as well as losartan Nephrology consult Renally dose meds Monitor renal function Other plans as detailed by Florida Haynes PA-C
--- NOTE | 2022-08-24 19:09 | Communication Note ---
Date of Service: August 24, 2022 History and physical exam performed by me. History notable for 76-year-old man with significant medical history including CABG in May 2021, postop recurrent pleural effusion and chylothorax, pericardial effusion, DM type II, proximal A-fib, hypothyroidism, hypertension who was sent into the ER by PCPs office for abnormal labs. Patient reports he has not been feeling great since after hospitalization 8 months ago at [place]. Reports mildly, persistent intermittent chest pain sometimes up to the left shoulder and left side of the neck, epigastric pain, usually worse at night and early mornings. Reports that epigastric pain usually resolves when he is sitting up and during the daytime. He has been followed up by GI and had EGD with EUS. 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 Reported epigastric pain improved after he stopped Carafate and Prilosec and started Bentyl. Reports poor appetite and intake due to these pain Reports occasional dark stool which he also reported to GI per outpt GI office note Outpatient lab works showed worsening of renal function over the past month compared to lab work last year. On physical exam General: No acute distress and not ill appearing Eyes: PERRL, conjunctivae normal, not pale, anicteric sclerae, EOM intact bilaterally ENMT: External ear and nose normal, oropharynx normal Respiratory: Normal respiratory effort, no respiratory distress, lungs clear to auscultation, no crackles and no wheezes Cardiovascular: RRR S1 S2 with systolic ejection murmur Chest (Breasts): Well healed anterior surgical scar Gastrointestinal (Abdomen): Abdomen is not distended, soft, non-tender to palpation, no guarding, no palpable hepatosplenomegaly, normal bowel sounds Musculoskeletal: No pedal edema Genitourinary: No CVA tendernesss Neurologic: Alert and oriented x 3, No focal weakness, sensation grossly intact Psychiatric: Euthymic affect Labs notable for hemoglobin of 12.1, creatinine of 2.04, calcium of 10.3 DELIA. Per review of previous lab results creatinine was 1-1.2 both in his [facility] and [facility] records prior to this year. Creatinine was 1.6 on 07/26/2022 and 2[address] abdomen and pelvis. Nonobstructive stones noted with some bilateral renal cyst Will give trial of gentle IVF and monitor renal function Hold home lasix for now as well as losartan Nephrology consult Renally dose meds Monitor renal function Other plans as detailed by Florida Haynes PA-C
[2022-08-24] MEDS ORDERED: DOCUSATE SODIUM 100 MG CAP PO PRN (21:02)
[2022-08-24] MEDS ORDERED: DICYCLOMINE HCL 10 MG CAP PO PRN (21:02)
[2022-08-24] MEDS ORDERED: ACETAMINOPHEN 325 MG TAB PO PRN (21:02)
[2022-08-24] MEDS ORDERED: ONDANSETRON INJ 2 MG/ML 2 ML VIAL IV PRN (21:02)
[2022-08-24] MEDS ORDERED: GLUCOSE 40% GEL 15 GM TUBE PO PRN (21:02)
[2022-08-24] MEDS ORDERED: POLYETHYLENE (MIRALAX) 17 GM PACK PO PRN (21:02)
[2022-08-24] MEDS ORDERED: GLUCOSE 10 TAB/TUBE PO PRN (21:02)
[2022-08-24] MEDS ORDERED: CARBOHYDRATES FOR HYPOGLYCEMIA PO PRN (21:02)
[2022-08-24] MEDS ORDERED: DEXTROSE 50% 50 ML SYRINGE IV PRN (21:02)
[2022-08-24] MEDS ORDERED: GLUCAGON FOR INJ 1 MG VIAL SQ PRN (21:02)
[2022-08-24] MEDS ORDERED: SODIUM CHLORIDE 0.9% 1000ML 1,000 ML IV SCH (21:02)
[2022-08-24] MEDS ORDERED: Patient's HEIGHT & WEIGHT Needed STA (21:13)
[2022-08-24] MEDS: INSULIN ASPART PER UNIT SC SCH (22:57)
[2022-08-24] MEDS: AMOXICILLIN 500 MG CAP PO SCH (23:00)
[2022-08-24] MEDS: METOPROLOL SUCC 50MG EXT REL TAB PO SCH (23:01)
[2022-08-24] MEDS: LANTUS PER UNIT CHARGE SQ SCH (23:20)
[2022-08-25] MEDS: LEVOTHYROXINE SODIUM 88 MCG TABLET PO SCH (05:41)
[2022-08-25] MEDS: INSULIN ASPART PER UNIT SC SCH ×4 (08:24→20:33)
[2022-08-25] MEDS: AMOXICILLIN 500 MG CAP PO SCH ×2 (08:26→20:34)
[2022-08-25] MEDS: METOPROLOL SUCC 50MG EXT REL TAB PO SCH ×2 (08:26→20:34)
[2022-08-25] MEDS: ADVANCED PROBIOTIC 1250 MG CAPSULE PO SCH (08:27)
[2022-08-25] MEDS: ATORVASTATIN 40 MG TAB PO SCH (08:27)
[2022-08-25] MEDS: FERROUS SULFATE 325 MG TAB PO SCH (08:27)
[2022-08-25] MEDS: CHOLECALCIFEROL 1,000 UNITS 25 MCG TAB PO SCH (08:27)
[2022-08-25] MEDS ORDERED: ASPIRIN 81 MG ECTAB PO SCH (09:00)
[2022-08-25] MEDS ORDERED: OMEGA-3 (PURIFIED FISH OIL) 1 GM CAP PO SCH (09:00)
[2022-08-25] MEDS ORDERED: NON-FORMULARY MEDICATION (Coq10 (Ubiquinol) 200 mg Capsule) PO SCH (09:00)
[2022-08-25 09:05] LABS: BUN Creatinine Ratio 23.7 (10-20); Calcium 10.3 mg/dl (8.5-10.1); Creatinine Clr Calc Pharmacy 34.4 ml/min; Est GFR (African American) 40.1 ml/min; Est GFR (Non-African American) 34.6 ml/min; Potassium 4.6 mmol/L (3.5-5.1)
[2022-08-25 09:26] LABS: Basophils # (auto) 0.03 K/uL (0-0.2); Basophils % (auto) 1.5 %; Eosinophils # (auto) 0.03 K/uL (0-0.50); Eosinophils % (auto) 1.5 %; Hematocrit (blood only) 30.4 % (42.0-52.0); Hemoglobin 9.9 g/dl (14.0-18.0); Lymphocytes # (auto) 0.63 K/uL (1.2-3.4); Lymphocytes % (auto) 31.7 %; Mean Corpuscular Hgb Conc 32.6 g/dL (32.0-36.0); Mean Corpuscular Volume 89.1 fL (80.0-100.0); Mean Platelet Volume 10.2 fL (9.4-12.4); Monocytes # (auto) 0.26 K/uL (0.11-0.59); Monocytes % (auto) 13.1 %; Neutrophils # (auto) 1.04 K/uL (1.40-6.50); Neutrophils % (auto) 52.2 %; Ovalocytes 1+; Platelet Count 94 K/uL (130-400); Platelet Estimate Decreased (Normal); Polychromasia 1+; RDW Coefficient of Variation 13.6 % (11.5-14.5); RDW Standard Deviation 44.6 fL (36.4-46.3); Red Blood Count 3.41 M/uL (4.70-6.10); White Blood Count 1.99 K/ul (4.8-10.8)
--- NOTE | 2022-08-25 10:18 | Nephrology Consultation ---
Date of Consultation August 25, 2022 Assessment & Plan (1) DELIA (acute kidney injury): Stage II nonoliguric acute kidney injury with past baseline creatinine 1.1 November through December 2021 and no interval labs until July 2022 when he presented with creatinine 1.6, increased to 2.1 August 23. Osborne urine sediment; no evidence of obstruction. chemistries and volume status acceptable; monitor Ca Reduce amoxicillin as below Agree with holding outpatient losartan and Lasix - Hypotension has resolved with medication adjustments and gentle IVF 1L; no hypotension in the hospital since presentation. Low threshold for echocardiogram should this occur; no indication for further IVF at this time Daily basic metabolic panel -ionized Ca in AM (order in) (2) [facility] (current) use of antibiotics: -recommend ID consultation for guidance on choice and dosing of antibiotic in current clinical situation (DELIA, pancytopenia); currently on 2 gm bid amoxicillin since late April > for now will lower amoxicillin dose to 500 mg q 12h given his DELIA Low threshold for CT chest, blood cultures, sed rate (3) Pancytopenia: ? from amoxicillin and for ID comment as above recommend /consider cardiology evaluation for possible reduction or adjustment of AC given recurrent epistaxis other work up per primary service as indicated History of Present Illness Reason for Consultation: Acute renal failure Requesting Physician: Dr Clifton Attending Physician: Basil Lew MD History of Present Illness Medically complex 76-year-old male whom I am asked to evaluate for acute renal failure was admitted yesterday for evaluation of hypotension and progressive renal failure. Patient's baseline creatinine runs 1.1 from November 2021 through December 2021. Next check of creatinine was July 2022 with value 1.6. This increased to 2.1 on August 23, prompting PCP visit. In addition to creatinine elevation, transaminitis had been noted as well. Patient noted at that visit on August 24 to have blood pressure 82/48 with blood pressure 98/54 on prior August 17 [facility] encounter. Also endorsed recurrent nosebleeds and melena as well as 7 lb wt loss April 2022 through August 2022. Right upper quadrant ultrasound late July was unremarkable. Past medical history includes over 20 years of diabetes with a baseline creatini ne of 1.2 (CKD 3A) before May 2021 when he underwent three-vessel CABG with series of complications including chylothorax, pericardial effusion status post pericardiocentesis. 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 He was on Zyvox and IV ceftriaxone initially through November 2021 then changed to Augmentin which was changed by infectious diseases April 2022 to amoxicillin with planned course through November 2022 due to concerns about blackened teeth and GI upset. Other medical history includes ischemic cardiomyopathy with initial ejection fraction post CABG at about 30% but subsequent improvement to 40% by spring 2021, hypertension, laryngopharyngeal reflux and cricopharyngeal dysphagia s/p cricopharyngeal area dilatation and w/ grade 1 distal esophageal varices on June 2022 EGD, [place] per March cardiology note begun in the wake of TIA both postoperatively in 2020 after CABG and based on MRI from [place] prior to 05/2021 showing chronic white matter disease and suspected infarction. He is on relatively low and stable doses of diuretics and antihypertensives: Lasix 20 mg daily, losartan 12.5 mg daily, metoprolol as below. Plan on changing to amoxicillin in April was for CBC and CMP every 3 months. His presenting creatinine was 2 with improvement to 1.9 this morning; chemistries have been acceptable apart from mild hypercalcemia. Labs this morning also notable for mild pancytopenia. pt overall feels improved. has been dizzy for several weeks prior to admission and states this is now much improved. no dyspnea or edema, no cough. does endorse recurrent epistaxis 3-4 times monthly and lasting per son for days w/ negative eval by ENT. no n/v. endorses several weeks of malaise prior to admission and wt loss about 7 lb since late 2021. denies new / worrisome voiding sx. no focal numbness/weakness. no f/c. Allergies Allergy/AdvReac Type Severity Reaction Status Date / Time Sulfa (Sulfonamide Allergy Unknown CHILDHOOD Verified 08/24/22 16:46 Antibiotics) ALLERGY--CAN'T REMEMBER tramadol AdvReac Severe SEVERE Verified 08/24/22 16:46 VOMITING omeprazole AdvReac Intermediate PER PT Verified 08/24/22 16:47 "DID THE OPPOSITE, MADE ME WORSE". Home Medications Medication Instructions Recorded Confirmed Type ascorbic acid (vitamin C) 500 mg 500 mg PO DAILY 11/08/21 08/24/22 History tablet (Vitamin C) aspirin 81 mg tablet,delayed 81 mg PO DAILY 11/08/21 08/24/22 History release atorvastatin 40 mg tablet 40 mg PO DAILY 11/08/21 08/24/22 History cholecalciferol (vitamin D3) 50 50 mcg PO DAILY 11/08/21 08/24/22 History mcg (2,000 unit) capsule (Vitamin D3) coQ10 (ubiquinol) 200 mg capsule 200 mg PO DAILY 11/08/21 08/24/22 History docusate sodium 100 mg capsule 100 mg PO BID PRN Constipation 11/08/21 08/24/22 History dulaglutide 1.5 mg/0.5 mL 3 mg subcut WK 11/08/21 08/24/22 History subcutaneous pen injector (Trulicity) ferrous sulfate 325 mg (65 mg 325 mg PO DAILY 11/08/21 08/24/22 History iron) tablet insulin glargine 100 unit/mL (3 30 unit subcut HS 11/08/21 08/24/22 History mL) subcutaneous pen (Lantus Solostar U-100 Insulin) levothyroxine 88 mcg tablet 88 mcg PO DAILYBB 11/08/21 08/24/22 History metoprolol succinate 100 mg 100 mg PO BID 11/08/21 08/24/22 History tablet,extended release 24 hr nitroglycerin 0.4 mg sublingual 0.4 mg sublingual DIRECTED PRN 11/08/21 08/24/22 History tablet (Nitrostat) Chest Pain omega 2-eza-pmq-fish oil 1,200 mg 1 cap PO DAILY 11/08/21 08/24/22 History (144 mg-216 mg) capsule (Fish Oil) ondansetron HCl 4 mg tablet 4 mg PO Q8H PRN Nausea 11/08/21 08/24/22 History polyethylene glycol 3350 17 17 g PO DAILY PRN Constipation 11/08/21 08/24/22 History gram/dose oral powder (Miralax) Lactobacillus acidophilus 10 10,000 mmu cells PO DAILY 08/24/22 08/24/22 History billion cell capsule (Probiotic) amoxicillin 500 mg capsule 2,000 mg PO BID 08/24/22 08/24/22 History dicyclomine 10 mg capsule 10 mg PO BID PRN ABD CRAMPING 08/24/22 08/24/22 History furosemide 20 mg tablet 20 mg PO QAM 08/24/22 08/24/22 History losartan 25 mg tablet 12.5 mg PO QAM 08/24/22 08/24/22 History rivaroxaban 20 mg tablet (Xarelto) 20 mg PO QDD 08/24/22 08/24/22 History Patient History Medical History (Updated 08/25/22 @ 13:28 by Kajal Wang MD, PhD) Atrial fibrillation post operative CABG 2020 Carotid artery stenosis MVD mRCA 90% w/ diffuse disease; 80% occlusion of pLAD w/ heavily calcified and 100% INCIDENT RESPONSE LEAD of l Cx w/ L 2 L & R 2 L collats Chylothorax Diabetes mellitus 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, months of abtx Hyperlipidemia Hypertension Hypothyroid Ischemic cardiomyopathy LVEF 30% post CABG; GRADE I diastolic dysfunction, NYHA class 2 [facility] (current) use of antibiotics 2 gm bid amoxicillin for empyema through November 2022 TIA (transient ischemic attack) in [place] prior to 2020 AND post operatively 2020 [facility] Surgical History History of coronary artery bypass graft CABG x 3 (PAEZ -LAD; AO-RCA; AO-OM1 w/ graphic SVG on 05/30/2021 Family History Other Heart disease Social History Smoking Status: Former smoker Tobacco Type: Cigarettes packs per day: 1; Hx Alcohol Use: No Hx Substance Use: No Preferred Language: Kenyan Communication Ability: Effective Dashboard Developer Required: No Beliefs That Will Affect Care: None Current Living Situation: Spouse Feels Safe at Home: Yes Safety Concerns: Feels Safe At This Time Assistive Devices: Glasses Review of Systems Review of Systems: All systems reviewed & are unremarkable except as noted in HPI & below Physical Exam Constitutional: well developed, well nourished, + thin and cooperative; no acute distress Eyes: EOM intact bilaterally ENMT: Ears: no external ear abnormality Nose: no external nose abnormality Mouth: + dry oral mucous membranes Neck: no nuchal rigidity Respiratory: normal respiratory effort Auscultation: + diminished lung sounds and + crackles (bibasilar R >L) Cardiovascular: Rate/Rhythm: regular rate and regular rhythm Extremities: no edema Gastrointestinal (Abdomen): Inspection/Auscultation: normal bowel sounds Percussion/Palpation: abdomen soft; abdomen nontender Musculoskeletal: Extremities: strength 5/5 throughout Skin: no rashes, warm and dry Neurologic: nevarez, fluent speech, no tremor Psychiatric: Orientation: alert and oriented x 3 Results & Data ([facility]) Vital Signs (Past 12 Hours) Vital Signs Temp Pulse Pulse Resp BP Pulse Ox O2 Del Method 08/25/22 07:54 36.7 C 75 18 119/68 99 Room Air 08/25/22 06:59 76 08/25/22 03:51 36.4 C L 72 18 116/70 99 Room Air 08/24/22 22:56 83 08/24/22 23:32 36.5 C 78 18 116/69 99 Room Air Laboratory Results 08/25/22 07:54 08/25/22 07:54 Urinalysis reviewed and urine sediment bland Diagnostic Findings Noncon CT abdomen pelvis and chest x-ray both unremarkable at admission
--- NOTE | 2022-08-25 13:56 | Hospitalist Progress Note ---
Date of Service August 25, 2022 Assessment & Plan (1) DELIA (acute kidney injury): (2) Diabetes mellitus: Plan 76-year-old male has complex significant past medical history of CAD status post CABG x3 (PAEZ to LAD, AO to RCA, AO to OM1 05/2021), ischemic cardiomyopathy LVEF 30% postop CABG which has since recovered with most recent echocardiogram in 02/15/2022 revealing preserved EF, PAF postoperative CABG, history of multiple small CVA involving left anterior frontal lobe and left posterior temporal lobe following surgery, RBBB, HTN, HLD, T2DM, hypothyroidism, mild aortic sclerosis, mild mitral valve leaflet prolapse with mild MR, history of chronic use of Xare lto in setting of possible CVA, history of moderate size left pleural effusion post CABG, status post thoracentesis with recurrent left pleural effusion requiring multiple hospitalizations status post thoracic duct embolization 09/06/[address] 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 He is being managed for the following: DELIA Over the past month patient had a gradual increase in renal function. In December 2021 was 1.2, then July 2022 1.6 and on admitting day 2.04. No significant medication changes over the past month. Patient overall has had diminished oral intake in setting of dysphagia, lack of appetite and recent complex medical history. Hold Lasix, losartan and avoid nephrotoxic agents Encourage PO intake; ore charger consult Cr minimally downtrending. d/w nephro, No further need for IVF at this time. Renal dose Xarelto and amoxicillin Epistaxis in the setting of coagulopathy Patient with history of CVA, and PAF postoperative CABG. Reports nose bleed 3-4 x/month since xarelto dose has been increased. Will consult cardio for guidance regarding xarelto therapy due to his complex history. 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 Pt developing pancytopenia likely 2/2 amoxicillin therapy. T2DM Uncontrolled, last A1c July 2022 was 8.4 Lantus/NovoLog per protocol Hold outpatient meds Gastroesophageal reflux disease Follows with GI, recent upper GI June 2022 was dilatation Recommended patient be on lifelong PPI, however he stopped this and feels his symptoms have improved slightly He is also on Bentyl will need to continue to follow with GI as outpatient CAD with history of CABG x3 History of ischemic cardiomyopathy with most recent echocardiogram revealing preserved EF PAF vs Post Op Afib RBBB HTN HLD Continue aspirin, statin, co-Q10, metoprolol Hold losartan and Lasix in setting of DELIA Xarelto renally dosed, cardio for guidance w/ xarelto need History of CVA On ASA, statin and Xarelto Renally dose Xarelto DVT prophylaxis: Xarelto, currently being renally dosed, once DELIA resolves resume 20 mg at dinner Full code PCP: Dori Dispo: Telemetry Admission and Anticipated Discharge Date Admission Date: August 24, 2022 Subjective Patient seen and examined at bedside as a follow-up of DELIA, pancytopenia likely secondary to chronic amoxicillin therapy, ongoing actinomyces infection and treatment with amoxicillin. Patient was lying in bed, on room air, NAD, reports no new acute event overnight, reports last bowel movement on Sunday, reports poor appetite ongoing since December 2021, reports chronic chest pain and abdominal pain, denies any new worsening of his pain, denies any new cough or sputum production, reports being able to drink water though decreased appetite. Reports nose bleeds 3-4x/month since Xarelto dose has been increased. Physical Exam Physical Exam: GENERAL: Alert and oriented x3. NAD, on RA. HEENT: No pallor, no icterus. Pupils equal, round and reactive to light. Oral mucosa moist. NECK: No JVD, no neck masses. HEART: S1 and S2 heard. Regular rate and rhythm. systolic murmur at pulmonic area, no gallop. RESPIRATORY SYSTEM: Normal AP diameter. No accessory muscle use. No wheezing, no crackles. ABDOMEN: Soft, bowel sounds present, nontender, no distention. CENTRAL NERVOUS SYSTEM: No facial droop. Speech is clear. Obeys simple commands. Moves extremities. EXTREMITIES: No edema, no erythema seen. Results & Data Results & Data ([facility]) Vital Signs (Past 12 Hours) Vital Signs Temp Pulse Pulse Resp BP Pulse Ox O2 Del Method 08/25/22 11:24 36.5 C 70 18 111/71 100 Room Air 08/25/22 07:54 36.7 C 75 18 119/68 99 Room Air 08/25/22 06:59 76 08/25/22 03:51 36.4 C L 72 18 116/70 99 Room Air
--- NOTE | 2022-08-25 15:08 | Cardiology Consultation ---
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 Presented to [facility] emergency department due to generalized malaise/fatigue. Found to have an DELIA-creatinine of 2.1 (baseline 1.1). CrCL per the Cockcfroft- Gault equation- 34mL/min. Recent guidelines for Xarelto use and renal dysfunction indicate that for creatinine clearance between 15 to 50 mL/min dosing of 15 mg daily with the evening meal is indicated. Given his history of nose-bleeding will reduce aspirin to 81 mg every Sunday only. Will also hold fish oil supplement. Appreciate input from nephrology regarding DELIA management. Agree with holding of Lasix and losartan. Amoxicillin held per ID Future considerations of transitioning to Eliquis given renal dysfunction and CAD. However, this can be addressed as an outpatient. Case discussed with Dr. Ramos- no further recommendations from a cardiology standpoint. Please reach out with further concerns. Supervising Physician Co-Signing Physician Notes Patient seen chart reviewed Recommendations as above. Patient on renal dose of Xarelto with epistaxis Would recommend reduction in aspirin 3 days/week, discontinue fish oil Eliquis has indications for use for chronic stable ischemic heart disease without aspirin and may be a consideration post hospital discharge History of Present Illness Reason for Consultation: Anticoagulation Requesting Physician: Connie betancur Attending Physician: Basil Lew MD History of Present Illness Medically complex 76-year-old male. Past medical history as stated below. 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 Elizondo but also has followed with the undersigned. Patient presented to the PCP office yesterday with concerns regarding generalized fatigue and weakness. About 1 month ago renal dysfunction was noted on his BMP-patient did not follow-up and repeat creatinine was 2.1 on 08/23. Patient was referred to the emergency department. Lasix (20 mg daily) and losartan (12.5 mg daily) was held. Patient was cautiously given 1 L of IV fluids. Xarelto was reduced to renal dosing (previously 20 mg daily). Blood work today showed a slight improvement in his creatinine (2.04>>1.86). CrCL per the Cockcfroft-Gault equation- 34mL/min. Chest x-ray: No acute process CT of the abdomen/pelvis: without acute findings Tele: Normal sinus rhythm 70s to 80s EKG: Sinus rhythm with a first-degree AV block, right bundle branch block, 73 bpm. Past medical history: 1. ASCVD a. Heavily advanced atherosclerotic plaque per chest CT 05/2020 b. S/p cardiac catheterization 05/27/2021- multivessel CAD including mid RCA 90% lesion with mild diffuse disease, 80% occlusion of the proximal LAD with heavily calcified lesion, and 100% DIFFUSION OPERATOR of left circumflex with [id number] and [id number] collaterals c. Status post CABG x3 (PAEZ to LAD, AO to RCA, AO to OM1) with and the g raphic saphenous vein harvest, 05/30/2021 d. Episode of postoperative atrial fibrillation, treated with amiodarone and placed on Coumadin e. Had multiple small CVA involving the left anterior frontal lobe and left posterior temporal lobe following surgery f. History of moderate sized left pleural effusion post CABG, status post thoracentesis 07/14/[address] Fleming at [facility] [place] [place] g. 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 Ivan Jean and IR Chest tube placement 09/08/2021 h. 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 2. Ischemic cardiomyopathy, LVEF 30% postop CABG, LVEF 40-44% per echo 08/2021, LVEF 55% 02/2022 3. Hypertension 4. Dyslipidemia, LDL goal below 70 5. Right bundle-branch block 6. Type 2 diabetes 7. CKD 8. Mild mitral valve leaflet prolapse with mild MR 9. Grade 1 esophageal varices in the distal esophagus per EGD 06/2022 Allergies Allergy/AdvReac Type Severity Reaction Status Date / Time Sulfa (Sulfonamide Allergy Unknown CHILDHOOD Verified 08/24/22 16:46 Antibiotics) ALLERGY--CAN'T REMEMBER tramadol AdvReac Severe SEVERE Verified 08/24/22 16:46 VOMITING omeprazole AdvReac Intermediate PER PT Verified 08/24/22 16:47 "DID THE OPPOSITE, MADE ME WORSE". Home Medications Medication Instructions Recorded Confirmed Type ascorbic acid (vitamin C) 500 mg 500 mg PO DAILY 11/08/21 08/24/22 History tablet (Vitamin C) aspirin 81 mg tablet,delayed 81 mg PO DAILY 11/08/21 08/24/22 History release atorvastatin 40 mg tablet 40 mg PO DAILY 11/08/21 08/24/22 History cholecalciferol (vitamin D3) 50 50 mcg PO DAILY 11/08/21 08/24/22 History mcg (2,000 unit) capsule (Vitamin D3) coQ10 (ubiquinol) 200 mg capsule 200 mg PO DAILY 11/08/21 08/24/22 History docusate sodium 100 mg capsule 100 mg PO BID PRN Constipation 11/08/21 08/24/22 History dulaglutide 1.5 mg/0.5 mL 3 mg subcut WK 11/08/21 08/24/22 History subcutaneous pen injector (Trulicity) ferrous sulfate 325 mg (65 mg 325 mg PO DAILY 11/08/21 08/24/22 History iron) tablet insulin glargine 100 unit/mL (3 30 unit subcut HS 11/08/21 08/24/22 History mL) subcutaneous pen (Lantus Solostar U-100 Insulin) levothyroxine 88 mcg tablet 88 mcg PO DAILYBB 11/08/21 08/24/22 History metoprolol succinate 100 mg 100 mg PO BID 11/08/21 08/24/22 History tablet,extended release 24 hr nitroglycerin 0.4 mg sublingual 0.4 mg sublingual DIRECTED PRN 11/08/21 08/24/22 History tablet (Nitrostat) Chest Pain omega 8-ydp-gln-fish oil 1,200 mg 1 cap PO DAILY 11/08/21 08/24/22 History (144 mg-216 mg) capsule (Fish Oil) ondansetron HCl 4 mg tablet 4 mg PO Q8H PRN Nausea 11/08/21 08/24/22 History polyethylene glycol 3350 17 17 g PO DAILY PRN Constipation 11/08/21 08/24/22 History gram/dose oral powder (Miralax) Lactobacillus acidophilus 10 10,000 mmu cells PO DAILY 08/24/22 08/24/22 History billion cell capsule (Probiotic) amoxicillin 500 mg capsule 2,000 mg PO BID 08/24/22 08/24/22 History dicyclomine 10 mg capsule 10 mg PO BID PRN ABD CRAMPING 08/24/22 08/24/22 History furosemide 20 mg tablet 20 mg PO QAM 08/24/22 08/24/22 History losartan 25 mg tablet 12.5 mg PO QAM 08/24/22 08/24/22 History rivaroxaban 20 mg tablet (Xarelto) 20 mg PO QDD 08/24/22 08/24/22 History Patient History Medical History (Updated 08/25/22 @ 15:00 by ZHAO Ortiz) Atrial fibrillation post operative CABG 2020 Carotid artery stenosis MVD mRCA 90% w/ diffuse disease; 80% occlusion of pLAD w/ heavily calcified and 100% DIFFUSION OPERATOR of l Cx w/ L 2 L & R 2 L collats Chylothorax Diabetes mellitus 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, months of abtx Hyperlipidemia Hypertension Hypothyroid Ischemic cardiomyopathy LVEF 30% post CABG; GRADE I diastolic dysfunction, NYHA class 2 long-term (current) use of antibiotics 2 gm bid amoxicillin for empyema through November 2022 TIA (transient ischemic attack) in [place] prior to 2020 AND post operatively 2020 [facility] [place] [place] Surgical History History of coronary artery bypass graft CABG x 3 (PAEZ -LAD; AO-RCA; AO-OM1 w/ graphic SVG on 05/30/2021 Family History Other Heart disease Social History Smoking Status: Former smoker Tobacco Type: Cigarettes packs per day: 1; Hx Alcohol Use: No Hx Substance Use: No Preferred Language: Irish Communication Ability: Effective Tool Marker Required: No Beliefs That Will Affect Care: None Current Living Situation: Spouse Feels Safe at Home: Yes Safety Concerns: Feels Safe At This Time Assistive Devices: None Review of Systems Review of Systems: All systems reviewed & are unremarkable except as noted in HPI & below Physical Exam Physical Exam: General: No acute distress. A+Ox3. HEENT: Normocephalic. Atraumatic. Conjunctiva and sclera clear. NECK: No carotid bruits. No JVD. Carotid upstrokes are brisk. Heart: RRR s1 and S2 noted, +2/6 systolic murmur. Lungs: Clear to auscultation. No wheezing, rhonchi, rales. Abdomen: Normal bowel sounds. Soft. Nontender. No masses or organomegaly. No abdominal bruits. Extremities: No edema. No clubbing or cyanosis. Pulses: radial=2/4, posterior tibial=2/4, dorsalis pedis = 2/4. NEURO: No focal deficits. PSYCH: Normal. Results & Data ([facility]) Vital Signs (Past 12 Hours) Vital Signs Temp Pulse Pulse Resp BP Pulse Ox O2 Del Method 08/25/22 11:24 36.5 C 70 18 111/71 100 Room Air 08/25/22 07:54 36.7 C 75 18 119/68 99 Room Air 08/25/22 06:59 76 08/25/22 03:51 36.4 C L 72 18 116/70 99 Room Air Laboratory Results CBC 08/25/22 Range/Units 07:54 WBC 1.99 L (4.8-10.8) K/ul RBC 3.41 L (4.70-6.10) M/uL Hgb 9.9 L (14.0-18.0) g/dl Hct 30.4 L (42.0-52.0) % Plt Count 94 L (130-400) K/uL Neut # (Auto) 1.04 L (1.40-6.50) K/uL Lymph # (Auto) 0.63 L (1.2-3.4) K/uL Rogers # (Auto) 0.26 (0.11-0.59) K/uL Eos # (Auto) 0.03 (0-0.50) K/uL Baso # (Auto) 0.03 (0-0.2) K/uL Comprehensive Metabolic Panel 08/25/22 Range/Units 07:54 Sodium 136 (136-145) mmol/L Potassium 4.6 (3.5-5.1) mmol/L Chloride 108 H (98-107) mmol/L Carbon Dioxide 24 (21-32) mmol/L BUN 44 H (6-23) mg/dl Creatinine 1.86 H (0.6-1.4) mg/dl Glucose 114 H (70-99(Fasting)) mg/dl Calcium 10.3 H (8.5-10.1) mg/dl Intake and Output 08/25/22 08/25/22 08/25/22 06:59 14:59 22:59 Intake Total 1350 / 1350 Balance 1350 / 1350 Intake: IV 1000 / 1000 Sodium Chloride 0.9% 1000ML 1, 1000 / 1000 000 ml @ 75 mls/hr IV .[id number] [facility] Rx#:[id number] Oral 350 / 350 Diagnostic Findings Echo 02/2022 outpatient The primary indication after review was deemed appropriate and the examination was performed. Normal LV chamber size and wall thickness. Normal LV systolic function without regional wall motion abnormality, EF 55-60%. Grade II diastolic dysfunction. Moderate aortic valve sclerosis without stenosis. There is mild mitral valve prolapse present. Mitral stenosis is absent. Mild mitral regurgitation is present. Mild left atrial enlargement.
[2022-08-25] MEDS: RIVAROXABAN 15 MG TAB PO SCH (16:26)
[2022-08-25] MEDS: LANTUS PER UNIT CHARGE SQ SCH (20:33)
[2022-08-26] MEDS: LEVOTHYROXINE SODIUM 88 MCG TABLET PO SCH (05:44)
[2022-08-26 05:59] LABS: Hematocrit (blood only) 31.2 % (42.0-52.0); Hemoglobin 10.4 g/dl (14.0-18.0); Mean Corpuscular Hemoglobin 29.1 pg (25.0-34.0); Mean Corpuscular Hgb Conc 33.3 g/dL (32.0-36.0); Mean Corpuscular Volume 87.4 fL (80.0-100.0); Mean Platelet Volume 10.3 fL (9.4-12.4); Platelet Count 106 K/uL (130-400); RDW Coefficient of Variation 13.4 % (11.5-14.5); RDW Standard Deviation 42.9 fL (36.4-46.3); Red Blood Count 3.57 M/uL (4.70-6.10)
[2022-08-26 06:16] LABS: BUN Creatinine Ratio 19.7 (10-20); Calcium 9.9 mg/dl (8.5-10.1); Creatinine Clr Calc Pharmacy 33.1 ml/min; Est GFR (African American) 38.4 ml/min; Est GFR (Non-African American) 33.1 ml/min; Magnesium 1.9 mg/dl (1.7-2.4); Phosphorus 3.3 mg/dl (2.5-4.9); Potassium 4.3 mmol/L (3.5-5.1)
[2022-08-26] MEDS: ADVANCED PROBIOTIC 1250 MG CAPSULE PO SCH (08:22)
[2022-08-26] MEDS: CHOLECALCIFEROL 1,000 UNITS 25 MCG TAB PO SCH (08:23)
[2022-08-26] MEDS: FERROUS SULFATE 325 MG TAB PO SCH (08:23)
[2022-08-26] MEDS: AMOXICILLIN 500 MG CAP PO SCH ×2 (08:23→20:33)
[2022-08-26] MEDS: INSULIN ASPART PER UNIT SC SCH ×4 (08:23→20:33)
[2022-08-26] MEDS: METOPROLOL SUCC 50MG EXT REL TAB PO SCH ×2 (08:23→20:35)
[2022-08-26] MEDS: ATORVASTATIN 40 MG TAB PO SCH (08:23)
--- NOTE | 2022-08-26 10:49 | Electrocardiogram Report ---
Test Reason : Blood Pressure : / mmHG Vent. Rate : 073 BPM Atrial Rate : 073 BPM P-R Int : 256 ms QRS Dur : 130 ms QT Int : 428 ms P-R-T Axes : 070 042 038 degrees QTc Int : 471 ms Sinus rhythm with 1st degree A-V block Right bundle branch block Abnormal ECG When compared with ECG of 24-AUG-2022 12:46, No significant change was found Confirmed by Justin Guido ([id number]) on 08/26/2022 10:48:24 AM Referred By: Lia Meadows Confirmed By:Justin Guido
--- NOTE | 2022-08-26 16:12 | Hospitalist Progress Note ---
Date of Service August 26, 2022 Assessment & Plan (1) DELIA (acute kidney injury): (2) Diabetes mellitus: Plan 76-year-old male has complex significant past medical history of CAD status post CABG x3 (PAEZ to LAD, AO to RCA, AO to OM1 05/2021), ischemic cardiomyopathy LVEF 30% postop CABG which has since recovered with most recent echocardiogram in 02/15/2022 revealing preserved EF, PAF postoperative CABG, history of multiple small CVA involving left anterior frontal lobe and left posterior temporal lobe following surgery, RBBB, HTN, HLD, T2DM, hypothyroidism, mild aortic sclerosis, mild mitral valve leaflet prolapse with mild MR, history of chronic use of Xare lto in setting of possible CVA, history of moderate size left pleural effusion post CABG, status post thoracentesis with recurrent left pleural effusion requiring multiple hospitalizations status post thoracic duct embolization 09/06/[address] 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 He is being managed for the following: DELIA Over the past month patient had a gradual increase in renal function. In December 2021 was 1.2, then July 2022 1.6 and on admitting day 2.04. No significant medication changes over the past month. Patient overall has had diminished oral intake in setting of dysphagia, lack of appetite and recent complex medical history. Hold Lasix, losartan and avoid nephrotoxic agents Encourage PO intake; vp marketing services and skin consult Cr not much downtrending nephro on board, No further need for IVF at this time. Renal dose Xarelto and amoxicillin Epistaxis in the setting of coagulopathy Patient with history of CVA, and PAF postoperative CABG. Reports nose bleed 3-4 x/month since xarelto dose has been increased. Cardio reassessed anticoagulation need, appreciate recs. 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 Pt developing pancytopenia likely 2/2 amoxicillin therapy. T2DM Uncontrolled, last A1c July 2022 was 8.4 Lantus/NovoLog per protocol Hold outpatient meds Gastroesophageal reflux disease Follows with GI, recent upper GI June 2022 was dilatation Recommended patient be on lifelong PPI, however he stopped this and feels his symptoms have improved slightly He is also on Bentyl will need to continue to follow with GI as outpatient CAD with history of CABG x3 History of ischemic cardiomyopathy with most recent echocardiogram revealing preserved EF PAF vs Post Op Afib RBBB HTN HLD Continue aspirin, statin, co-Q10, metoprolol Hold losartan and Lasix in setting of DELIA Xarelto renally dosed, cardio for guidance w/ xarelto need History of CVA On ASA, statin and Xarelto Renally dose Xarelto DVT prophylaxis: Xarelto, currently being renally dosed, once DELIA resolves resume 20 mg at dinner Full code PCP: Dori Dispo: pt/ot, pending renal clearance, ID eval. Admission and Anticipated Discharge Date Admission Date: August 24, 2022 Subjective Patient seen and examined at bedside as a follow-up of DELIA, pancytopenia likely secondary to chronic amoxicillin therapy, ongoing actinomyces infection and treatment with amoxicillin. Patient was lying in bed, on room air, NAD, reports no new acute event overnight, reports eating better/feeling better today, did move BM. Reports chronic chest pain and abdominal pain under control, denies any new worsening of his pain, denies any new cough or sputum production. Physical Exam Physical Exam: GENERAL: Alert and oriented x3. NAD, on RA. HEENT: No pallor, no icterus. Pupils equal, round and reactive to light. Oral mucosa moist. NECK: No JVD, no neck masses. HEART: S1 and S2 heard. Regular rate and rhythm. systolic murmur at pulmonic area, no gallop. RESPIRATORY SYSTEM: Normal AP diameter. No accessory muscle use. No wheezing, no crackles. ABDOMEN: Soft, bowel sounds present, nontender, no distention. CENTRAL NERVOUS SYSTEM: No facial droop. Speech is clear. Obeys simple commands. Moves extremities. EXTREMITIES: No edema, no erythema seen. Results & Data Results & Data ([facility]) Vital Signs (Past 12 Hours) Vital Signs Temp Pulse Pulse Resp BP Pulse Ox O2 Del Method 08/26/22 15:41 36.4 C L 75 18 106/66 99 Room Air 08/26/22 15:27 78 08/26/22 10:55 36.5 C 79 18 107/69 99 Room Air 08/26/22 07:48 36.5 C 81 18 111/71 99 Room Air 08/26/22 07:28 86
[2022-08-26] MEDS: RIVAROXABAN 15 MG TAB PO SCH (17:23)
[2022-08-26] MEDS: LANTUS PER UNIT CHARGE SQ SCH (20:34)
[2022-08-27] MEDS: LEVOTHYROXINE SODIUM 88 MCG TABLET PO SCH (05:44)
[2022-08-27 06:15] LABS: BUN Creatinine Ratio 21.7 (10-20); Calcium 9.7 mg/dl (8.5-10.1); Creatinine Clr Calc Pharmacy 41.5 ml/min; Est GFR (African American) 49.2 ml/min; Est GFR (Non-African American) 42.5 ml/min; Magnesium 1.8 mg/dl (1.7-2.4); Phosphorus 3.4 mg/dl (2.5-4.9); Potassium 4.3 mmol/L (3.5-5.1)
[2022-08-27 06:24] LABS: Hemoglobin 9.3 g/dl (14.0-18.0); Mean Corpuscular Hemoglobin 29.1 pg (25.0-34.0); Mean Corpuscular Hgb Conc 33.2 g/dL (32.0-36.0); Mean Corpuscular Volume 87.5 fL (80.0-100.0); Mean Platelet Volume 10.5 fL (9.4-12.4); Platelet Count 81 K/uL (130-400); RDW Coefficient of Variation 13.3 % (11.5-14.5); RDW Standard Deviation 42.1 fL (36.4-46.3); White Blood Count 2.21 K/ul (4.8-10.8)
[2022-08-27] MEDS: ADVANCED PROBIOTIC 1250 MG CAPSULE PO SCH (08:40)
[2022-08-27] MEDS: INSULIN ASPART PER UNIT SC SCH ×2 (08:40→12:32)
[2022-08-27] MEDS: ATORVASTATIN 40 MG TAB PO SCH (08:40)
[2022-08-27] MEDS: FERROUS SULFATE 325 MG TAB PO SCH (08:41)
[2022-08-27] MEDS: CHOLECALCIFEROL 1,000 UNITS 25 MCG TAB PO SCH (08:41)
[2022-08-27] MEDS: METOPROLOL SUCC 50MG EXT REL TAB PO SCH (08:41)
[2022-08-27] MEDS ORDERED: AMOXICILLIN 500 MG CAP PO SCH (09:00)
--- NOTE | 2022-08-27 13:11 | XRay Report ---
SINGLE VIEW CHEST CLINICAL HISTORY: Congestive heart failure FINDINGS: 2 AP, portable, upright chest radiographs are compared to study dated 08/24/2022 and correla jason with chest CT dated 11/09/2021. The patient is status post midline sternotomy. The patient is statu s post midline sternotomy. The heart is enlarged. The pulmonary vasculature is noncongested. Chronic interstitial thickening similar to previous. There is bibasilar scarring/atelectasis. No airspace con solidation or large pleural effusion is identified. No pneumothorax is seen. The bony thorax is gross ly intact. IMPRESSION: Cardiomegaly with no acute cardiopulmonary abnormality. ACT 112: Negative or not required by law. Electronically signed by: Star Miguel M.D. 08/27/2022 1:10 PM
--- NOTE | 2022-08-27 13:21 | Nephrology Progress Note ---
Date of Service August 27, 2022 Assessment & Plan (1) DELIA (acute kidney injury): Plan: Stage II nonoliguric acute kidney injury with past baseline creatinine 1.1 November through December 2021 and no interval labs until July 2022 when he presented with creatinine 1.6, increased to 2.1 August 23. Artemus urine sediment; no evidence of obstruction. chemistries and volume status acceptable; monitor Ca Hold/discontinue amoxicillin as below Continue to hold outpatient losartan and Lasix: No evidence of fluid overload off of these medications and hypotension has improved though not resolved; however hypotensive symptoms have improved Daily basic metabolic panel Nephrology discharge recommendations -Discharge on Lasix as needed dyspnea or edema 20 mg daily Do not resume losartan at hospital discharge Ensure infectious diseases follow-up at discharge Clarify with infectious diseases prior to discharge exactly when to start doxycycline Complete metabolic panel and CBC at follow-up appointment with PCP within 1 week of discharge Follow-up with nephrology 2 to 4 weeks after discharge (2) 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 from amoxicillin and for ID comment as above >> infectious diseases recommends holding amoxicillin and trending labs for improvement in pancytopenia off of amoxicillin then switching to doxycycline for suppression through 2022. Recommend clarifying with infectious diseases whether to start Doxy now or once pancytopenia resolves -So far no nosebleeds on lower Xarelto dosing after discussion with cardiology Admission and Anticipated Discharge Date Admission Date: August 24, 2022 Subjective No interval clinical events except that he no longer feels lightheaded getting up and moving about the room. Denies edema or shortness of breath. No new or worrisome voiding symptoms. Eating well. No nosebleeds. Review of Systems Review of Systems: All systems reviewed & are unremarkable except as noted in Subjective Physical Exam Constitutional: well developed, well nourished, + thin and cooperative; no ac gerardo distress Eyes: EOM intact bilaterally ENMT: Ears: no external ear abnormality Nose: no external nose abnormality Mouth: + dry oral mucous membranes Neck: no nuchal rigidity Respiratory: normal respiratory effort Auscultation: + diminished lung sounds and + crackles (Right base only) Cardiovascular: Rate/Rhythm: regular rate and regular rhythm Extremities: no edema Gastrointestinal (Abdomen): Inspection/Auscultation: normal bowel sounds Percussion/Palpation: abdomen soft; abdomen nontender Musculoskeletal: Extremities: strength 5/5 throughout Skin: no rashes, warm and dry Psychiatric: Orientation: alert and oriented x 3 Results & Data ([facility]) Vital Signs (Past 12 Hours) Vital Signs Temp Pulse Pulse Resp BP BP Pulse Ox 08/27/22 10:42 36.4 C L 79 18 105/68 100 08/27/22 08:47 86 110/80 08/27/22 07:29 81 08/27/22 06:22 36.4 C L 81 18 99/65 L 98 08/27/22 03:46 101/68 08/27/22 03:05 36.6 C 90 16 91/58 L 100 O2 Del Method 08/27/22 10:42 Room Air 08/27/22 08:47 08/27/22 07:29 08/27/22 06:22 Room Air 08/27/22 03:46 08/27/22 03:05 Room Air Laboratory Results 08/27/22 05:35 08/27/22 05:35
--- NOTE | 2022-08-27 14:02 | Discharge Summary ---
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 He had recently underwent upper GI study which required dilatation in June 2022. Approximately 1 month ago he was noted to have a new renal dysfunction and repeat labs have shown further worsening. He was seen and evaluated today by outpatient provider who recommended ER evaluation. Of significance he has been on Augmentin since December 2021 after being diagnosed with actinomyces infection. Most recently he has been switched to amoxicillin 2 g twice daily due to GI symptoms. He reports generally not feeling well ever since his complicated hospital course. He complains of neck and intermittent chest pain. He denies any exertion. Sx mostly are when he is on his back and at night. Its improved if he gets up and sits in chair. Its also worse with eating. HE has had decreased appetite since recent illness/surgery. His sx improved when he stopped prilosec and started bentyl. He is also concerned that ever since his levothyroxine was increased to 88 mcg that he has been having this neck pain and it might be related. He denies f/c/s, dizziness, lightheaded, n/v, dysuria, increased urg/freq, hematuria or diarrhea. He states last stool he had was black and tarry. This occurred yesterday a.m. Overall poor appetite and has not been eating and drinking well. Most recent medication changes including Augmentin switched to amoxicillin and stopping omeprazole and starting Bentyl. He has been taking his medications as prescribed. Previous smoker 1 ppd x 20 years. Previous ETOH user but does not now. Denies recreational drug use. In ED patient made hemodynamically stable. He was found have an DELIA with BUN of 53 and creatinine of 2.04. His CBC revealed low WBC of 4.15, H&H 12.1 and 36.6. His urinalysis revealed +1 glucose but otherwise negative. CT abdomen pelvis and chest x-ray were negative for any acute abnormality. He received IV fluid Admission Exam Per Admitting Provider General: No acute distress and not ill appearing Eyes: PERRL, conjunctivae normal, not pale, anicteric sclerae, EOM intact bilaterally ENMT: External ear and nose normal, oropharynx normal Respiratory: Normal respiratory effort, no respiratory distress, lungs clear to auscultation, no crackles and no wheezes Cardiovascular: RRR S1 S2 with systolic ejection murmur Chest (Breasts): Well healed anterior surgical scar Gastrointestinal (Abdomen): Abdomen is not distended, soft, non-tender to palpation, no guarding, no palpable hepatosplenomegaly, normal bowel sounds Musculoskeletal: No pedal edema Genitourinary: No CVA tendernesss Neurologic: Alert and oriented x 3, No focal weakness, sensation grossly intact Psychiatric: Euthymic affect Principal Diagnosis Acute kidney injury Epistaxis in the setting of coagulopathy 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 NAD, on RA. HEENT: No pallor, no icterus. Pupils equal, round and reactive to light. Oral mucosa moist. NECK: No JVD, no neck masses. HEART: S1 and S2 heard. Regular rate and rhythm. systolic murmur at pulmonic area, no gallop. RESPIRATORY SYSTEM: Normal AP diameter. No accessory muscle use. No wheezing, no crackles. ABDOMEN: Soft, bowel sounds present, nontender, no distention. CENTRAL NERVOUS SYSTEM: No facial droop. Speech is clear. Obeys simple commands. Moves extremities. EXTREMITIES: No edema, no erythema seen. Discharge Data Allergies Allergy/AdvReac Type Severity Reaction Status Date / Time Sulfa (Sulfonamide Allergy Unknown CHILDHOOD Verified 08/24/22 16:46 Antibiotics) ALLERGY--CAN'T REMEMBER tramadol AdvReac Severe SEVERE Verified 08/24/22 16:46 VOMITING omeprazole AdvReac Intermediate PER PT Verified 08/24/22 16:47 "DID THE OPPOSITE, MADE ME WORSE". Consultations 08/24/22 17:22 ED Decision to Admit Stat 08/24/22 18:28 Consult Nephrology Routine 08/25/22 11:46 Consult Infectious Diseases Routine 08/25/22 14:20 Consult Cardiology Routine Ordered Studies 08/24/22 13:51 CT Abd and Pelvis [CT abd pelvis wo con] Stat Hospital Course (1) DELIA (acute kidney injury): (2) Diabetes mellitus: Plan 76-year-old male has complex significant past medical history of CAD status post CABG x3 (PAEZ to LAD, AO to RCA, AO to OM1 05/2021), ischemic cardiomyopathy LVEF 30% postop CABG which has since recovered with most recent echocardiogram in 02/15/2022 revealing preserved EF, PAF postoperative CABG, history of multiple small CVA involving left anterior frontal lobe and left posterior temporal lobe following surgery, RBBB, HTN, HLD, T2DM, hypothyroidism, mild aortic sclerosis, mild mitral valve leaflet prolapse with mild MR, history of chronic use of Xarelto in setting of possible CVA, history of moderate size left pleural effusion post CABG, status post thoracentesis with recurrent left pleural effusion requiring multiple hospitalizations status post thoracic duct embolization 09/06/[address] 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 He was managed for the following: DELIA Over the past month patient had a gradual increase in renal function. In December 2021 was 1.2, then July 2022 1.6 and on admitting day 2.04. No significant medication changes over the past month. Patient overall has had diminished oral intake in setting of dysphagia, lack of appetite and recent complex medical history. Creatinine downtrending and improving, patient with improving appetite and p.o. fluid intake. Nephrology evaluated, do not restart losartan on discharge, can use Lasix as needed for edema or shortness of breath Patient to follow-up with PCP in a week time for labs and follow-up with nephrology in 2 weeks time. Epistaxis in the setting of coagulopathy Patient with history of CVA, and PAF postoperative CABG. Reports nose bleed 3-4 x/month since xarelto dose has been increased. Cardio reassessed anticoagulation need, appreciate recs. Aspirin on Sunday and Sunday. Continue Xarelto renally dosed. Patient to follow-up with his cardiology as prior. 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 ID evaluated, d/w Dr. edge 08/27 , recommends doxycycline through November 2022. Patient aware of antibiotic changes, patient to follow-up with infectious disease closely of which patient is aware as well. T2DM Home meds as prior. Gastroesophageal reflux disease Follows with GI, recent upper GI June 2022 was dilatation Recommended patient be on lifelong PPI, however he stopped this and feels his symptoms have improved slightly He is also on Bentyl will need to continue to follow with GI as outpatient CAD with history of CABG x3 History of ischemic cardiomyopathy with most recent echocardiogram revealing preserved EF PAF vs Post Op Afib RBBB HTN HLD Continue aspirin, statin, co-Q10, metoprolol Hold losartan and Lasix in setting of DELIA Xarelto renally dosed, cardio for guidance w/ xarelto need History of CVA On ASA, statin and Xarelto Renally dose Xarelto Full code PCP: Dori Patient being discharged home with following instruction at the point of discharge: Follow-up with your primary care physician within a week time and likely you will need labs CBC/CMP/magnesium/phosphorus. Based on your renal function, your Xarelto dose has been decreased upon discharge, follow-up with your PCP office for ongoing adjustment of his Xarelto dose. You might benefit from switching to Eliquis if your renal function continues to fluctuate, coordinate either with your PCP office or cardiology office. Your aspirin has been made Sunday rather than daily due to your nasal bleeding history. To avoid risks of nasal bleeding, avoid picking nose. Follow-up with your infectious disease doctor within 1 to 2 weeks time upon discharge for ongoing management of your actinomyces. Your amoxicillin has been stopped. You are being discharged on doxycycline 100 mg twice a day as a part of your chronic suppressive therapy which will continue through November 2022. Drink plenty of water with the dose and sit upright for half an hour after taking the doxycycline. Continue to follow-up with your infectious disease doctor. Follow-up with nephrology in 2 weeks time upon discharge. Your losartan will be stopped upon discharge until your nephrology evaluation. You can use Lasix 20 mg daily as needed for shortness of breath or edema. Take your medications as prescribed. Please make sure that you are able to get your medications today by calling your pharmacy before you leave the hospital so that your treatment continuity is not broken. Home Health Attestation I certify that this patient is under my care and that I, or a physicians editorial assistant working with me, had a face to-face encounter that meets the home health [id number] encounter requirements with this patient. The encounter with the patient was in whole, or in part, for the following med ical condition, which is the primary reason for home health care (list medical condition): I certify that, based on my findings, the following services are medically necessary home health services: My clinical findings support the need for the above services because: Further, I certify that my clinical findings support that this patient is homebound (i.e. absences from home require considerable and taxing effort and are for medical reasons or [employer] services or infrequently or of short duration when for other reasons) because: Certification for Home Health Services: Based on the above findings, I certify that this patient is confined to the home and needs intermittent detention care, physical therapy and/or speech therapy or continues to need occupational therapy. The patient is under my care, and I have initiated the establishment of the plan of care. This patient will be followed by a physician who will periodically review the plan of care. 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 Based on your renal function, your Xarelto dose has been decreased upon discharge, follow-up with your PCP office for ongoing adjustment of his Xarelto dose. You might benefit from switching to Eliquis if your renal function continues to fluctuate, coordinate either with your PCP office or cardiology office. Your aspirin has been made Sunday rather than daily due to your nasal bleeding history. To avoid risks of nasal bleeding, avoid picking nose. Follow-up with your infectious disease doctor within 1 to 2 weeks time upon discharge for ongoing management of your actinomyces. Your amoxicillin has been stopped. You are being discharged on doxycycline 100 mg twice a day as a part of your chronic suppressive therapy which will continue through November 2022. Drink plenty of water with the dose and sit upright for half an hour after taking the doxycycline. Continue to follow-up with your infectious disease doctor. Follow-up with nephrology in 2 weeks time upon discharge. Your losartan will be stopped upon discharge until your nephrology evaluation. You can use Lasix 20 mg daily as needed for shortness of breath or edema. Take your medications as prescribed. Please make sure that you are able to get your medications today by calling your pharmacy before you leave the hospital so that your treatment continuity is not broken. Pending Studies at Discharge: No Stand-Alone Forms: [facility] castaclip, Smoking Cessation Medications and DC Order Prescriptions: New doxycycline hyclate 100 mg Capsule 100 mg PO BID Qty: 60 0RF Xarelto 15 mg Tablet 15 mg PO QDD Qty: 30 0RF Continued dicyclomine 10 mg capsule 10 mg PO BID PRN (Reason: ABD CRAMPING) Probiotic 10 billion cell Capsule 10,000 mmu cells PO DAILY atorvastatin 40 mg Tablet 40 mg PO DAILY ondansetron HCl [Zofran] 4 mg Tablet 4 mg PO Q8H PRN (Reason: Nausea) metoprolol succinate 100 mg Tablet Extended Release 24 Hr 100 mg PO BID levothyroxine 88 mcg Tablet 88 mcg PO DAILYBB ascorbic acid (vitamin C) [Vitamin C] 500 mg Tablet 500 mg PO DAILY ferrous sulfate 325 mg (65 mg iron) Tablet 325 mg PO DAILY nitroglycerin [Nitrostat] 0.4 mg Tablet, Sublingual 0.4 mg sublingual DIRECTED PRN (Reason: Chest Pain) docusate sodium 100 mg Capsule 100 mg PO BID PRN (Reason: Constipation) polyethylene glycol 3350 [Miralax] 17 gram/dose Powder 17 g PO DAILY PRN (Reason: Constipation) insulin glargine [Lantus Solostar U-100 Insulin] 100 unit/mL (3 mL) Insulin Pen 30 unit SUBCUT HS cholecalciferol (vitamin D3) [Vitamin D3] 50 mcg (2,000 unit) Capsule 50 mcg PO DAILY coQ10 (ubiquinol) 200 mg Capsule 200 mg PO DAILY Trulicity 1.5 mg/0.5 mL Pen Injector 3 mg SUBCUT WK Rx Instructions: TAKES ON SUNDAY EVENING Changed furosemide 20 mg tablet 20 mg PO QAM PRN (Reason: edema/weight gain/sob) Qty: 14 0RF aspirin 81 mg Tablet,Delayed Release (Dr/Ec) 81 mg PO MOWEFR Qty: 30 0RF Discontinued amoxicillin 500 mg capsule 2,000 mg PO BID losartan 25 mg tablet 12.5 mg PO QAM Xarelto 20 mg tablet 20 mg PO QDD omega [id number] oil [Fish Oil] 1,200 (144-216) mg Capsule 1 cap PO DAILY Discharge Orders: Discharge Order (Routine); Ordered 08/27/22 Ordered By: Basil Lew Admission Data Admit Date/Time: 08/24/22 18:08 Attending Provider: Basil Lew Admit Provider: Azeb Clifton I. Primary Care Provider: Lia Meadows Other Providers: Markie Buenrostro ; Azeb Clifton I. ; Edwardo Soliman ; Rissa Chatterjee ; Steve Sharma I. ; Víctor Patel II ; Disha Banks ; Joseph Edge ; Sravan Barber ; Mane Butler ; Joes Draper ; Alexi Parra ; Don Ramos ; Ken Diehl ; Uvaldo Elizondo ; Joseph Boyer ; Jaclyn Armando ; Sharon Ross ; Zabrina Britton. ; Edward Johnson
[2022-08-27] MEDS ORDERED: DOXYCYCLINE HYCLATE 100 MG CAP PO SCH (21:00)
[2022-08-28] MEDS ORDERED: ASPIRIN 81 MG ECTAB PO SCH (15:45)
== END 2022-08-27 16:04 | disposition home or self-care (01) | DRG 683 ==
LOC: ED 11:36 → 2N 18:08 → SUATTDRO 18:08 → 2N 21:00

== ENCOUNTER 2022-09-18 13:53 | Inpatient (IN) ==
[2022-09-18] MEDS ORDERED: SODIUM CHLORIDE 0.9% 1000ML 1,000 ML IV ONE (14:12)
--- NOTE | 2022-09-18 14:16 | Emergency Department Note ---
Impression & Plan DELIA (acute kidney injury), Abdominal pain, Leukopenia, Acute urinary retention, Renal colic, Hydronephrosis ED Provider Note NAME: MASSIMO STONER AGE: 76 SEX: M : 1945 ARRIVES VIA: Walk-In INFORMANT: Patient ED PROVIDER(S): Sean Wu DO CHIEF COMPLAINT: DELIA HPI: Patient is a 76-year-old male who presents to the ER with a past medical history of A-fib, CAD, diabetes, hypertension, hyperlipidemia, with ischemic cardiomyopathy for pain in his right lower quadrant. This has been present since last Sunday. He notes its been unchanged. He was diagnosed with a 4 mm stone. He will follow-up with his PCP today was found to have increasing kidney failure and consequently was referred in. He notes he has not been eating or drinking. Denies a dysuria, urgency, or frequency. No other exacerbating or remitting factors. PAST MEDICAL HISTORY:See Below PAST SURGICAL HISTORY:See Below FAMILY HISTORY:See Below SOCIAL HISTORY:See Below HOME MEDICATIONS:See Below ALLERGIES:See Below VITALS:See Below PHYSICAL EXAMINATION: GENERAL: Sitting up in bed, alert, well appearing, well nourished, no distress, non-toxic EYE EXAM: normal conjunctiva. OROPHARYNX: no exudate, no erythema, lips, buccal mucosa, and tongue normal and mucous membranes are moist NECK: supple, no nuchal rigidity, no adenopathy, non-tender LUNGS: Clear to auscultation. Normal chest wall mechanics HEART:+[place], S1 normal and S2 normal ABDOMEN: abdomen soft, non-tender, normo-active bowel sounds, no masses, no rebound or guarding. BACK: Back is symmetrical on inspection and there is no deformity, no midline tenderness, no CVA tenderness. SKIN: no rashes and no bruising UPPER EXTREMITIES: upper extremities are grossly normal. LOWER EXTREMITIES: No pitting edema. NEURO EXAM: Normal sensorium, cranial nerves II-XII grossly intact, normal speech, no gross weakness of arms, no gross weakness of legs. MEDICAL DECISION MAKING: Patient is a 76-year-old male who presents the ER for DELIA with unknown renal stone and hydronephrosis. IV was established blood work was obtained. Labs show mild leukopenia 3.8 thousand. Hemoglobin 12.9. BMP with creatinine of 2.6 up from baseline of 1. LFTs bilirubin were unremarkable. UA without signs of infection. COVID was negative. Ultrasound shows hydro-. KUB was unremarkable. Patient was given IV fluids. Postvoid was 400 mL consequently Chakraborty was placed. He was given 1.5 L while in the ER. He was updated bedside. Discussed with hospitalist for further evaluation admission and treatment. Triage Nursing notes reviewed. Limited review of prior medical records performed Vital Signs: reviewed and remarkable for hypothermia Differential diagnosis: Differential diagnoses includes but is not limited to gastritis, peptic ulcer disease, GERD, gallbladder disease, pancreatitis, small bowel obstruction, appendicitis, diverticulitis, hernia, urinary tract infection, torsion, per foration, trauma, infectious. ER treatment provided: See below Diagnostics interpreted by me include EKG and cardiac monitoring as listed below: -Cardiac Monitoring: An order was placed for continuous cardiac monitoring. The monitor shows a rate of 80 with sinus rhythm. -ECG: none -Laboratory studies:Interpreted by me as stated above in MDM and shown below. 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, months of abtx Hyperlipidemia Hypertension Hypothyroid Ischemic cardiomyopathy LVEF 30% post CABG; GRADE I diastolic dysfunction, NYHA class 2 MCFP (current) use of antibiotics 2 gm bid amoxicillin for empyema through November 2022 TIA (transient ischemic attack) in [place] prior to 2020 AND post operatively 2020 [facility] [place] [facility] [place] Surgical History History of coronary artery bypass graft CABG x 3 (PAEZ -LAD; AO-RCA; AO-OM1 w/ graphic SVG on 05/30/2021 Family History Other Heart disease Social History Smoking Status: Never smoker Tobacco Type: Cigarettes packs per day: 1; Hx Alcohol Use: No Hx Substance Use: No Preferred Language: Cypriot Communication Ability: Effective Pulmonology Physician Required: No Beliefs That Will Affect Care: None Current Living Situation: Spouse Feels Safe at Home: Yes Assistive Devices: Glasses Allergies Allergies Allergy/AdvReac Type Severity Reaction Status Date / Time Sulfa (Sulfonamide Allergy Unknown CHILDHOOD Verified 09/18/22 16:07 Antibiotics) ALLERGY--CAN'T REMEMBER tramadol AdvReac Severe SEVERE Verified 09/18/22 16:07 VOMITING omeprazole AdvReac Intermediate PER PT Verified 09/18/22 16:07 "DID THE OPPOSITE, MADE ME WORSE". Home Meds Home Medications Medication Instructions Recorded Confirmed ascorbic acid (vitamin C) 500 mg 500 mg PO DAILY 11/08/21 09/18/22 tablet (Vitamin C) atorvastatin 40 mg tablet 40 mg PO DAILY 11/08/21 09/18/22 cholecalciferol (vitamin D3) 50 50 mcg PO DAILY 11/08/21 09/18/22 mcg (2,000 unit) capsule (Vitamin D3) coQ10 (ubiquinol) 200 mg capsule 200 mg PO DAILY 11/08/21 09/18/22 docusate sodium 100 mg capsule 100 mg PO BID PRN Constipation 11/08/21 09/18/22 dulaglutide 1.5 mg/0.5 mL 3 mg subcut WK 11/08/21 09/18/22 subcutaneous pen injector (Trulicity) ferrous sulfate 325 mg (65 mg 325 mg PO DAILY 11/08/21 09/18/22 iron) tablet insulin glargine 100 unit/mL (3 32 unit subcut HS 11/08/21 09/18/22 mL) subcutaneous pen (Lantus Solostar U-100 Insulin) levothyroxine 88 mcg tablet 88 mcg PO DAILYBB 11/08/21 09/18/22 metoprolol succinate 100 mg 100 mg PO BID 11/08/21 09/18/22 tablet,extended release 24 hr nitroglycerin 0.4 mg sublingual 0.4 mg sublingual DIRECTED PRN 11/08/21 09/18/22 tablet (Nitrostat) Chest Pain ondansetron HCl 4 mg tablet 4 mg PO Q8H PRN Nausea 11/08/21 09/18/22 polyethylene glycol 3350 17 17 g PO DAILY PRN Constipation 11/08/21 09/18/22 gram/dose oral powder (Miralax) Lactobacillus acidophilus 10 10,000 mmu cells PO DAILY 08/24/22 09/18/22 billion cell capsule (Probiotic) dicyclomine 10 mg capsule 10 mg PO BID PRN ABD CRAMPING 08/24/22 09/18/22 aspirin 81 mg tablet,delayed 81 mg PO 3XWK 09/18/22 09/18/22 release rivaroxaban 15 mg tablet (Xarelto) 15 mg PO DAILY 09/18/22 09/18/22 Previous Rx's Medication Instructions Recorded doxycycline hyclate 100 mg capsule 100 mg PO BID #60 caps 08/27/22 furosemide 20 mg tablet 20 mg PO QAM PRN edema/weight 08/27/22 gain/sob #14 tabs oxycodone 5 mg capsule 5 mg PO Q6H PRN severe pain (scale 09/13/22 score 7-10) #20 caps tamsulosin 0.4 mg capsule (Flomax) 0.4 mg PO DAILY 10 days #10 caps 09/13/22 Results & Data (ED) Vital Signs Vital Signs - 24 hr 09/18/22 13:57 09/18/22 14:32 09/18/22 14:28 Temperature 35.9 C L Temperature Source Temporal Artery Scan Pulse Rate 89 84 84 Pulse Rate from SpO2 Sensor Pulse Rhythm Regular Pulse Strength Normal Respiratory Rate 20 18 Respiratory Effort / Characteristics Non-Labored Spontaneous Respiratory Depth Normal Respiratory Pattern Regular Blood Pressure 131/73 Blood Pressure Mean 92 Blood Pressure Position Sitting Pulse Oximetry 99 Oxygen Delivery Method Room Air Sepsis Recent Fever Within 48 Hours No Sepsis New/Unexplained Change in Mental Status No Sepsis Action Taken by Nursing No Action Required 09/18/22 14:31 09/18/22 14:40 09/18/22 16:00 Temperature Temperature Source Pulse Rate 85 84 Pulse Rate from SpO2 Sensor 84 85 Pulse Rhythm Pulse Strength Respiratory Rate 15 16 Respiratory Effort / Characteristics Respiratory Depth Respiratory Pattern Blood Pressure 131/78 Blood Pressure Mean 95 Blood Pressure Position Pulse Oximetry 100 100 95 Oxygen Delivery Method Sepsis Recent Fever Within 48 Hours Sepsis New/Unexplained Change in Mental Status Sepsis Action Taken by Nursing 09/18/22 16:02 09/18/22 16:02 09/18/22 16:10 Temperature Temperature Source Pulse Rate 85 87 Pulse Rate from SpO2 Sensor 86 87 Pulse Rhythm Pulse Strength Respiratory Rate 16 14 Respiratory Effort / Characteristics Respiratory Depth Respiratory Pattern Blood Pressure 151/75 H Blood Pressure Mean 100 Blood Pressure Position Pulse Oximetry 99 98 Oxygen Delivery Method Sepsis Recent Fever Within 48 Hours Sepsis New/Unexplained Change in Mental Status Sepsis Action Taken by Nursing 09/18/22 16:23 09/18/22 16:24 09/18/22 16:24 Temperature Temperature Source Pulse Rate 88 89 Pulse Rate from SpO2 Sensor 89 88 Pulse Rhythm Pulse Strength Respiratory Rate 25 H 17 Respiratory Effort / Characteristics Respiratory Depth Respiratory Pattern Blood Pressure 147/85 H Blood Pressure Mean 105 Blood Pressure Position Pulse Oximetry 100 100 Oxygen Delivery Method Sepsis Recent Fever Within 48 Hours Sepsis New/Unexplained Change in Mental Status Sepsis Action Taken by Nursing 09/18/22 16:30 Temperature Temperature Source Pulse Rate 87 Pulse Rate from SpO2 Sensor 87 Pulse Rhythm Pulse Strength Respiratory Rate 18 Respiratory Effort / Characteristics Respiratory Depth Respiratory Pattern Blood Pressure 128/62 Blood Pressure Mean 84 Blood Pressure Position Pulse Oximetry 99 Oxygen Delivery Method Sepsis Recent Fever Within 48 Hours Sepsis New/Unexplained Change in Mental Status Sepsis Action Taken by Nursing Laboratory Data 09/18/22 14:30 09/18/22 14:30 Lab Results 09/18/22 09/18/22 09/18/22 Range/Units 14:21 14:30 14:30 WBC 3.87 L (4.8-10.8) K/ul RBC 4.48 L (4.70-6.10) M/uL Hgb 12.9 L (14.0-18.0) g/dl Hct 39.5 L (42.0-52.0) % MCV 88.2 (80.0-100.0) fL MCH 28.8 (25.0-34.0) pg MCHC 32.7 (32.0-36.0) g/dL RDW Std Deviation 44.5 (36.4-46.3) fL RDW Coeff of [place] 13.8 (11.5-14.5) % Plt Count 140 (130-400) K/uL MPV 11.9 (9.4-12.4) fL Immature Gran % (Auto) 0.3 % Neut % (Auto) 65.6 % Lymph % (Auto) 17.1 % [place] % (Auto) 15.2 % Eos % (Auto) 0.8 % Baso % (Auto) 1.0 % Neut # (Auto) 2.54 (1.40-6.50) K/uL Lymph # (Auto) 0.66 L (1.2-3.4) K/uL [place] # (Auto) 0.59 (0.11-0.59) K/uL Eos # (Auto) 0.03 (0-0.50) K/uL Baso # (Auto) 0.04 (0-0.2) K/uL Immature Gran # (Auto) 0.01 (0.01-0.20) K/uL Sodium 135 L (136-145) mmol/L Potassium 4.4 (3.5-5.1) mmol/L Chloride 106 (98-107) mmol/L Carbon Dioxide 24 (21-32) mmol/L Anion Gap 5 (3-11) BUN 31 H (6-23) mg/dl Creatinine 2.66 H (0.6-1.4) mg/dl Est Cr Clr Drug Dosing 24.8 ml/min Est GFR ( Amer) 26.0 ml/min Est GFR (Non-Af Amer) 22.5 ml/min BUN/Creatinine Ratio 11.7 (10-20) Glucose 194 H (70-99(Fasting)) mg/dl Calcium 10.1 (8.5-10.1) mg/dl Total Bilirubin 0.8 (0.2-1.0) mg/dl AST 18 (13-39) U/L ALT 15 (7-52) U/L Alkaline Phosphatase 178 H (34-104) U/L Total Protein 6.7 (6.0-8.3) gm/dl Albumin 3.9 (3.4-5.0) gm/dl Globulin 2.8 (2.5-4.0) gm/dl Albumin/Globulin Ratio 1.4 (0.9-2) Urine Color Urine Appearance (Clear) Urine pH (4.5-7.5) POC Urine pH (4.5-7.5) Ur Specific [place] (1.000-1.030) Urine Protein (Negative) POC Urine Protein (Negative) Urine Glucose (UA) (Negative) POC Ur Glucose (UA) (Normal) Urine Ketones (Negative) POC Urine Ketones (Negative) Urine Blood (Negative) POC Urine Blood (Negative) Urine Nitrite (Negative) POC Urine Nitrite (Negative) Urine Bilirubin (Negative) POC Urine Bilirubin (Negative) Urine Urobilinogen (Negative) POC Urine Urobilinogen (Normal) Ur Leukocyte Esterase (Negative) POC U Leukocyte Esteras (Negative) SARS-CoV-2, RNA, NAAT NEGATIVE (NEGATIVE) 09/18/22 09/18/22 Range/Units 14:30 15:02 WBC (4.8-10.8) K/ul RBC (4.70-6.10) M/uL Hgb (14.0-18.0) g/dl Hct (42.0-52.0) % MCV (80.0-100.0) fL MCH (25.0-34.0) pg MCHC (32.0-36.0) g/dL RDW Std Deviation (36.4-46.3) fL RDW Coeff of [place] (11.5-14.5) % Plt Count (130-400) K/uL MPV (9.4-12.4) fL Immature Gran % (Auto) % Neut % (Auto) % Lymph % (Auto) % [place] % (Auto) % Eos % (Auto) % Baso % (Auto) % Neut # (Auto) (1.40-6.50) K/uL Lymph # (Auto) (1.2-3.4) K/uL [place] # (Auto) (0.11-0.59) K/uL Eos # (Auto) (0-0.50) K/uL Baso # (Auto) (0-0.2) K/uL Immature Gran # (Auto) (0.01-0.20) K/uL Sodium (136-145) mmol/L Potassium (3.5-5.1) mmol/L Chloride (98-107) mmol/L Carbon Dioxide (21-32) mmol/L Anion Gap (3-11) BUN (6-23) mg/dl Creatinine (0.6-1.4) mg/dl Est Cr Clr Drug Dosing ml/min Est GFR ( Amer) ml/min Est GFR (Non-Af Amer) ml/min BUN/Creatinine Ratio (10-20) Glucose (70-99(Fasting)) mg/dl Calcium (8.5-10.1) mg/dl Total Bilirubin (0.2-1.0) mg/dl AST (13-39) U/L ALT (7-52) U/L Alkaline Phosphatase (34-104) U/L Total Protein (6.0-8.3) gm/dl Albumin (3.4-5.0) gm/dl Globulin (2.5-4.0) gm/dl Albumin/Globulin Ratio (0.9-2) Urine Color Yellow Urine Appearance Clear (Clear) Urine pH 5.0 (4.5-7.5) POC Urine pH 5 (4.5-7.5) Ur Specific [place] 1.021 (1.000-1.030) Urine Protein Negative (Negative) POC Urine Protein 3+ H (Negative) Urine Glucose (UA) Trace H (Negative) POC Ur Glucose (UA) 100 H (Normal) Urine Ketones Trace H (Negative) POC Urine Ketones Negative (Negative) Urine Blood Negative (Negative) POC Urine Blood Negative (Negative) Urine Nitrite Negative (Negative) POC Urine Nitrite Negative (Negative) Urine Bilirubin Negative (Negative) POC Urine Bilirubin Negative (Negative) Urine Urobilinogen Negative (Negative) POC Urine Urobilinogen Normal (Normal) Ur Leukocyte Esterase Negative (Negative) POC U Leukocyte Esteras Negative (Negative) SARS-CoV-2, RNA, NAAT (NEGATIVE) Administered Medications Aspirin (Aspirin 81 Mg Ectab) 81 mg PO [id number] [facility] Stop: 10/18/22 17:59 Last Admin: 09/18/22 18:28 Dose: Not Given Documented By: [id number] Sodium Chloride (Nss 1000ml) 1,000 mls @ 75 mls/hr IV .[id number] CARO Stop: 09/19/22 06:49 Last Admin: 09/18/22 17:46 Dose: 75 mls/hr Documented By: [id number] Discontinued Medications Sodium Chloride (Nss 1000ml) 1,000 mls @ 999 mls/hr IV .Q1H1M ONE Stop: 09/18/22 15:12 Last Infusion: 09/18/22 15:38 Dose: 0 mls/hr Documented By: Admin: 09/18/22 14:37 Dose: 999 mls/hr Documented By: [facility] Sodium Chloride (Nss) 500 mls @ 999 mls/hr IV .Q31M ONE Stop: 09/18/22 16:56 Last Infusion: 09/18/22 17:12 Dose: 0 mls/hr Documented By: Admin: 09/18/22 16:32 Dose: 999 mls/hr Documented By: [facility] Imaging Data Radiologist's Impression: KUB X-Ray 09/18/22 14:12 KUB CLINICAL HISTORY: Right ureteral stone. FINDINGS: An AP supine abdominal radiograph is correlated with abdominal CT dated 09/13/2022. There is a nonobstructed abdominal bowel gas pattern. Moderate fecal retention is seen throughout the colon. This partially obscures the renal shadows. Cholecystectomy clips are noted in the right upper quadrant. There is no radiographic evidence of nephrolithiasis. The right ureteral stone seen by CT on 09/13/2022 is not visualized. The skeletal structures are osteopenic and appear intact. There is moderate lumbosacral spondylosis. Calcifications again seen projecting over the right groin. IMPRESSION: 1. Moderate colonic fecal retention. This degrades evaluation of the renal shadows. 2. There is no radiographic evidence of nephrolithiasis. The 4 mm right ureteral stone seen by CT on 09/13/2022 is not visualized. Electronically signed by: Star Miguel M.D. 09/18/2022 3:51 PM Renal Ultrasound 09/18/22 14:12 RENAL ULTRASOUND CLINICAL HISTORY: Right flank pain 4 mm stone COMPARISON STUDY: CT of the abdomen and pelvis September 13, 2022. TECHNIQUE: Sonography of the kidneys and the urinary bladder was performed. FINDINGS: The right kidney measures 10.9 x 4.8 x 4.5 cm and the left kidney measures 10 x 4.4 x 3.6 cm. Moderate right hydronephrosis is noted. This is similar to prior CT. Right ureteral calculus shown on that exam is not evident but is likely sonographically occult. There is no left hydronephrosis. 1.7 cm left renal cyst is present. Incidental note is made of ascites and splenomegaly. The liver is likely cirrhotic. A Chakraborty balloon within the bladder is present. IMPRESSION: 1. Moderate right hydronephrosis. Right ureteral calculus likely sonographically occult. No left hydronephrosis. 2. Suspected cirrhosis. Ascites and splenomegaly. ACT 112: Negative or not required by law. Electronically signed by: Dominic Beth M.D. 09/18/2022 3:40 PM Discharge Plan Visit Data Chief Complaint: Referred by Doctor Stated Complaint: REF BY DOC,FLUID IN ABDOMEN,KIDNEY ISSUES ED Provider: Sean Wu Discharge Problem: DELIA (acute kidney injury), Abdominal pain, Leukopenia, Acute urinary retention, Renal colic, Hydronephrosis Patient Disposition: Admitted As Inpatient Discharge Instructions Interventions: ED Discharge Assessment Last Done: 09/18/22 17:14
[2022-09-18 14:59] LABS: Appearance Urine Clear (Clear); Bilirubin Urine Negative (Negative); Blood Urine Negative (Negative); Color Urine Yellow; Glucose Urine UA Trace (Negative); Ketones Urine Trace (Negative); Leukocyte Esterase Urine Negative (Negative); Nitrite Urine Negative (Negative); Protein Urine Negative (Negative); Specific Gravity Urine 1.021 (1.000-1.030); Urobilinogen Urine Negative (Negative)
[2022-09-18 15:00] LABS: Basophils # (auto) 0.04 K/uL (0-0.2); Eosinophils # (auto) 0.03 K/uL (0-0.50); Eosinophils % (auto) 0.8 %; Hematocrit (blood only) 39.5 % (42.0-52.0); Hemoglobin 12.9 g/dl (14.0-18.0); Immature Granulocytes # (auto) 0.01 K/uL (0.01-0.20); Immature Granulocytes % (auto) 0.3 %; Lymphocytes # (auto) 0.66 K/uL (1.2-3.4); Lymphocytes % (auto) 17.1 %; Mean Corpuscular Hemoglobin 28.8 pg (25.0-34.0); Mean Corpuscular Hgb Conc 32.7 g/dL (32.0-36.0); Mean Corpuscular Volume 88.2 fL (80.0-100.0); Mean Platelet Volume 11.9 fL (9.4-12.4); Monocytes # (auto) 0.59 K/uL (0.11-0.59); Monocytes % (auto) 15.2 %; Neutrophils # (auto) 2.54 K/uL (1.40-6.50); Neutrophils % (auto) 65.6 %; Platelet Count 140 K/uL (130-400); RDW Coefficient of Variation 13.8 % (11.5-14.5); RDW Standard Deviation 44.5 fL (36.4-46.3); Red Blood Count 4.48 M/uL (4.70-6.10); White Blood Count 3.87 K/ul (4.8-10.8)
[2022-09-18 15:08] LABS: POC Urine Bilirubin Negative (Negative); POC Urine Blood Negative (Negative); POC Urine Glucose 100 (Normal); POC Urine Ketones Negative (Negative); POC Urine Leukocytes Negative (Negative); POC Urine Nitrite Negative (Negative); POC Urine Protein 3+ (Negative); POC Urine Urobilinogen Normal (Normal); POC Urine pH 5 (4.5-7.5)
[2022-09-18 15:37] LABS: Albumin Globulin Ratio 1.4 (0.9-2); Albumin Level 3.9 gm/dl (3.4-5.0); BUN Creatinine Ratio 11.7 (10-20); Bilirubin,Total 0.8 mg/dl (0.2-1.0); Calcium 10.1 mg/dl (8.5-10.1); Creatinine Clr Calc Pharmacy 24.8 ml/min; Est GFR (Non-African American) 22.5 ml/min; Globulin 2.8 gm/dl (2.5-4.0); Potassium 4.4 mmol/L (3.5-5.1); Total Protein 6.7 gm/dl (6.0-8.3)
--- NOTE | 2022-09-18 15:42 | Ultrasound Report ---
RENAL ULTRASOUND CLINICAL HISTORY: Right flank pain 4 mm stone COMPARISON STUDY: CT of the abdomen and pelvis September 13, 2022. TECHNIQUE: Sonography of the kidneys and the urinary bladder was performed. FINDINGS: The right kidney measures 10.9 x 4.8 x 4.5 cm and the left kidney measures 10 x 4.4 x 3.6 c m. Moderate right hydronephrosis is noted. This is similar to prior CT. Right ureteral calculus shown on that exam is not evident but is likely sonographically occult. There is no left hydronephrosis. 1 .7 cm left renal cyst is present. Incidental note is made of ascites and splenomegaly. The liver is l ikely cirrhotic. A Chakraborty balloon within the bladder is present. IMPRESSION: 1. Moderate right hydronephrosis. Right ureteral calculus likely sonographically occult. No left hydr onephrosis. 2. Suspected cirrhosis. Ascites and splenomegaly. ACT 112: Negative or not required by law. Electronically signed by: Dominic Beth M.D. 09/18/2022 3:40 PM
--- NOTE | 2022-09-18 15:53 | XRay Report ---
KUB CLINICAL HISTORY: Right ureteral stone. FINDINGS: An AP supine abdominal radiograph is correlated with abdominal CT dated 09/13/2022. There is a nonobstructed abdominal bowel gas pattern. Moderate fecal retention is seen throughout the colon. T his partially obscures the renal shadows. Cholecystectomy clips are noted in the right upper quadrant . There is no radiographic evidence of nephrolithiasis. The right ureteral stone seen by CT on 09/14/19 23 is not visualized. The skeletal structures are osteopenic and appear intact. There is moderate lum bosacral spondylosis. Calcifications again seen projecting over the right groin. IMPRESSION: 1. Moderate colonic fecal retention. This degrades evaluation of the renal shadows. 2. There is no radiographic evidence of nephrolithiasis. The 4 mm right ureteral stone seen by CT on 09/13/2022 is not visualized. Electronically signed by: Star Miguel M.D. 09/18/2022 3:51 PM
[2022-09-18] MEDS ORDERED: SODIUM CHLORIDE 0.9% 500 ML IV ONE (16:26)
[2022-09-18] MEDS ORDERED: ALUMINUM/MAGNESIUM SUSP 30 ML UDC PO PRN (16:31)
[2022-09-18] MEDS ORDERED: ONDANSETRON INJ 2 MG/ML 2 ML VIAL IV PRN (16:31)
[2022-09-18] MEDS ORDERED: POLYETHYLENE (MIRALAX) 17 GM PACK PO PRN (16:31)
[2022-09-18] MEDS ORDERED: MAGNESIUM HYDROXIDE SUSP 30 ML UDC PO PRN (16:31)
--- NOTE | 2022-09-18 16:38 | History & Physical Report ---
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 In December 2021 was 1.2, then July 2022 1.6 08/24 2.04, today 2.66. No significant medication changes over the past month.. Patient overall has had diminished oral intake in setting of dysphagia, lack of appetite and recent complex medical history. suspect liver cirrhosis. Has ascites. USG diagnostic and therapeutic paracentesis ordered. See HPI for further details. Non-oliguric DELIA: Hydronephrosis: -Admit to telemetry -Was in ED on 09/16: abdominal CT: Right hydronephrosis and hydroureter are seen with an obstructive stone in the proximal ureter. -Lasix was held last admission and has not been restarted. -losartan has been held since last admission -avoid nephrotoxic agents -Received 1LNSB in ED; will order maintenance fluids at 75 mL/Hour x1 bag and reassess -BMP/CBC in AM -Renal dose Xarelto -Nephro consult placed -Urology consult placed; If he continues to have decline of his renal function with evidence of hydronephrosis he may require evaluation for possible cysto. 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 due to complex hospitalization from coronary bypass: -Followed by ID; on Amoxicillin 2 G IV BID; now on Doxycycline PO to continue until November 2022; and continue f/u with Infectious disease GERD: -Follows with GI, recent upper GI June 2022 was dilatation -Recommended patient be on lifelong PPI, however he stopped this and feels his symptoms have improved slightly -He is also on Bentyl CAD with history of CABG x3 History of ischemic cardiomyopathy with most recent echocardiogram revealing preserved EF PAF RBBB HTN HLD -Continue aspirin, statin, co-Q10, metoprolol -Hold losartan and Lasix in setting of DELIA History of CVA -On ASA, statin and Xarelto -Renally dose Xarelto Disposition: PCP: Dr. Meadows Code Status: Full code VTE Prophylaxis: On Xarelto. I spent a total of 88 minutes coordinating, documenting, and providing care for this patient excluding time spent in the performance of separately billed se rvices. All of the aforementioned completed while collaborating with the assigned attending physician, Dr. Lew, for a full treatment plan. Please see their addendum for further details. History of Present Illness Chief Complaint: abdominal pain Primary Care Provider: Lia Meadows MD Mr. Francois is a complex 76-year-old male that presented to the ED as per recommendation by his PCP due to worsening creatinine function in addition to persistent right lower quadrant abdominal pain. Significant past medical history includes CAD status post CABG x3(PAEZ to LAD, AO to RCA, AO to OM1 in May 2021), ischemic cardiomyopathy LVEF 30% postop CABG which is since recovered with most recent echocardiogram 02/2022 revealing preserved EF, PAF postop CABG, history of multiple small CVAs including left anterior frontal lobe and left posterior temporal lobe following surgery, RBBB, HTN, HLD, diabetes mellitus type 2, hypothyroidism, mild aortic sclerosis, mild mitral regurgitation, history of chronic use of Xarelto in the setting of a possible CVA, thoracic duct embolization 09/06/2021 under the care of Dr. 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 He underwent GI dilatation in 06/29. Since December/2021 his creatinine function has continued to decline. 12/2021 1.2 MT: 07/2022 1.6; 08/24/22 2.04; today 2.66. Patient has been followed by nephrology and cardiology on recent admissions. Today a renal ultrasound was per formed; revealing moderate right hydronephrosis. Right ureteral calculus likely sonographically occult. No left hydronephrosis. Additionally noted to have suspected cirrhosis and ascites. Will have Nephro and Urology see patient for recommendations. Patient denies headache, dizziness, shortness of breath, recent falls, visual or auditory changes, recent trauma, bowel or bladder changes, new rashes, vomiting, nausea, diarrhea. Patient will be admitted for further evaluation and management. Please see A/P for further details. Allergies Allergy/AdvReac Type Severity Reaction Status Date / Time Sulfa (Sulfonamide Allergy Unknown CHILDHOOD Verified 09/18/22 16:07 Antibiotics) ALLERGY--CAN'T REMEMBER tramadol AdvReac Severe SEVERE Verified 09/18/22 16:07 VOMITING omeprazole AdvReac Intermediate PER PT Verified 09/18/22 16:07 "DID THE OPPOSITE, MADE ME WORSE". Home Medications Medication Instructions Recorded Confirmed Type ascorbic acid (vitamin C) 500 mg 500 mg PO DAILY 11/08/21 09/18/22 History tablet (Vitamin C) atorvastatin 40 mg tablet 40 mg PO DAILY 11/08/21 09/18/22 History cholecalciferol (vitamin D3) 50 50 mcg PO DAILY 11/08/21 09/18/22 History mcg (2,000 unit) capsule (Vitamin D3) coQ10 (ubiquinol) 200 mg capsule 200 mg PO DAILY 11/08/21 09/18/22 History docusate sodium 100 mg capsule 100 mg PO BID PRN Constipation 11/08/21 09/18/22 History dulaglutide 1.5 mg/0.5 mL 3 mg subcut WK 11/08/21 09/18/22 History subcutaneous pen injector (Trulicity) ferrous sulfate 325 mg (65 mg 325 mg PO DAILY 11/08/21 09/18/22 History iron) tablet insulin glargine 100 unit/mL (3 32 unit subcut HS 11/08/21 09/18/22 History mL) subcutaneous pen (Lantus Solostar U-100 Insulin) levothyroxine 88 mcg tablet 88 mcg PO DAILYBB 11/08/21 09/18/22 History metoprolol succinate 100 mg 100 mg PO BID 11/08/21 09/18/22 History tablet,extended release 24 hr nitroglycerin 0.4 mg sublingual 0.4 mg sublingual DIRECTED PRN 11/08/21 09/18/22 History tablet (Nitrostat) Chest Pain ondansetron HCl 4 mg tablet 4 mg PO Q8H PRN Nausea 11/08/21 09/18/22 History polyethylene glycol 3350 17 17 g PO DAILY PRN Constipation 11/08/21 09/18/22 History gram/dose oral powder (Miralax) Lactobacillus acidophilus 10 10,000 mmu cells PO DAILY 08/24/22 09/18/22 History billion cell capsule (Probiotic) dicyclomine 10 mg capsule 10 mg PO BID PRN ABD CRAMPING 08/24/22 09/18/22 History doxycycline hyclate 100 mg capsule 100 mg PO BID #60 caps 08/27/22 09/18/22 Rx furosemide 20 mg tablet 20 mg PO QAM PRN edema/weight 08/27/22 09/18/22 Rx gain/sob #14 tabs oxycodone 5 mg capsule 5 mg PO Q6H PRN severe pain (scale 09/13/22 09/18/22 Rx score 7-10) #20 caps tamsulosin 0.4 mg capsule (Flomax) 0.4 mg PO DAILY 10 days #10 caps 09/13/22 09/18/22 Rx aspirin 81 mg tablet,delayed 81 mg PO 3XWK 09/18/22 09/18/22 History release apixaban 5 mg tablet (Eliquis) 5 mg PO BID 09/19/22 09/19/22 History Past Med/Surg History Medical History Atrial fibrillation post operative CABG 2020 Carotid artery stenosis MVD mRCA 90% w/ diffuse disease; 80% occlusion of pLAD w/ heavily calcified and 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 w/ L 2 L & R 2 L collats Chylothorax Diabetes mellitus 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, months of abtx Hyperlipidemia Hypertension Hypothyroid Ischemic cardiomyopathy LVEF 30% post CABG; GRADE I diastolic dysfunction, NYHA class 2 snf (current) use of antibiotics 2 gm bid amoxicillin for empyema through November 2022 TIA (transient ischemic attack) in [place] prior to 2020 AND post operatively 2020 [facility] Surgical History History of coronary artery bypass graft CABG x 3 (PAEZ -LAD; AO-RCA; AO-OM1 w/ graphic SVG on 05/30/2021 Family History Other Heart disease Social History Smoking Status: Never smoker Tobacco Type: Cigarettes packs per day: 1; Hx Alcohol Use: No Hx Substance Use: No Preferred Language: Iraqi Communication Ability: Effective Driveway Attendant Required: No Beliefs That Will Affect Care: None Current Living Situation: Spouse Feels Safe at Home: Yes Assistive Devices: Glasses Review of Systems Review of Systems: Neuro: (-) Falls, trauma, slurred speech HEENT: (-) [place], dizziness, dysphagia, visual or auditory changes CV: (-) CP, palpitations, swelling Resp: (-) SOB GI: (+) appetite changes, N/V/D, bowel changes. (+) abdominal distension : (-) urinary changes Skin: (-) rashes Psych: (+) anxiety, depression Physical Exam Physical Exam: Refer to Dr. Lew for his physical examination Results & Data Results & Data ([facility]) Vital Signs (Past 12 Hours) Vital Signs Temp Pulse Resp BP Pulse Ox O2 Del Method 09/18/22 16:31 85 13 100 09/18/22 16:31 128/62 09/18/22 16:30 87 18 128/62 99 09/18/22 16:24 89 17 100 09/18/22 16:24 147/85 H 09/18/22 16:23 88 25 H 100 09/18/22 16:10 87 14 98 09/18/22 16:02 85 16 99 09/18/22 16:02 151/75 H 09/18/22 16:00 95 09/18/22 14:40 84 16 100 09/18/22 14:31 85 15 131/78 100 09/18/22 14:28 84 18 09/18/22 14:32 84 09/18/22 13:57 35.9 C L 89 20 131/73 99 Room Air Laboratory Results Short CBC 09/18/22 Range/Units 14:30 WBC 3.87 L (4.8-10.8) K/ul Hgb 12.9 L (14.0-18.0) g/dl Hct 39.5 L (42.0-52.0) % Plt Count 140 (130-400) K/uL BMP 09/18/22 14:30 Sodium 135 L Potassium 4.4 Chloride 106 Carbon Dioxide 24 BUN 31 H Creatinine 2.66 H Glucose 194 H Calcium 10.1 Liver Function 09/18/22 Range/Units 14:30 Total Bilirubin 0.8 (0.2-1.0) mg/dl AST 18 (13-39) U/L ALT 15 (7-52) U/L Alkaline Phosphatase 178 H (34-104) U/L Albumin 3.9 (3.4-5.0) gm/dl Urine 09/18/22 Range/Units 14:30 Urine Color Yellow Urine Appearance Clear (Clear) Urine pH 5.0 (4.5-7.5) Ur Specific [place] 1.021 (1.000-1.030) Urine Protein Negative (Negative) Urine Glucose (UA) Trace H (Negative) Diagnostic Findings KUB X-Ray 09/18/22 14:12 KUB CLINICAL HISTORY: Right ureteral stone. FINDINGS: An AP supine abdominal radiograph is correlated with abdominal CT dated 09/13/2022. There is a nonobstructed abdominal bowel gas pattern. Moderate fecal retention is seen throughout the colon. This partially obscures the renal shadows. Cholecystectomy clips are noted in the right upper quadrant. There is no radiographic evidence of nephrolithiasis. The right ureteral stone seen by CT on 09/13/2022 is not visualized. The skeletal structures are osteopenic and appear intact. There is moderate lumbosacral spondylosis. Calcifications again seen projecting over the right groin. IMPRESSION: 1. Moderate colonic fecal retention. This degrades evaluation of the renal shadows. 2. There is no radiographic evidence of nephrolithiasis. The 4 mm right ureteral stone seen by CT on 09/13/2022 is not visualized. Electronically signed by: Star Miguel M.D. 09/18/2022 3:51 PM Renal Ultrasound 09/18/22 14:12 RENAL ULTRASOUND CLINICAL HISTORY: Right flank pain 4 mm stone COMPARISON STUDY: CT of the abdomen and pelvis September 13, 2022. TECHNIQUE: Sonography of the kidneys and the urinary bladder was performed. FINDINGS: The right kidney measures 10.9 x 4.8 x 4.5 cm and the left kidney measures 10 x 4.4 x 3.6 cm. Moderate right hydronephrosis is noted. This is similar to prior CT. Right ureteral calculus shown on that exam is not evident but is likely sonographically occult. There is no left hydronephrosis. 1.7 cm left renal cyst is present. Incidental note is made of ascites and splenomegaly. The liver is likely cirrhotic. A Chakraborty balloon within the bladder is present. IMPRESSION: 1. Moderate right hydronephrosis. Right ureteral calculus likely sonographically occult. No left hydronephrosis. 2. Suspected cirrhosis. Ascites and splenomegaly. ACT 112: Negative or not required by law. Electronically signed by: Dominic Beth M.D. 09/18/2022 3:40 PM Code Status & VTE Plan Code Status Full Code in the event of cardiac or respiratory arrest VTE Prophylaxis Plan VTE Prophylaxis will be ordered: Yes Supervising Physician Co-Signing Physician Notes 76-year-old male with PMH of CAD s/p CABG x3 (PAEZ to LAD, AO to RCA, AO to OM1 05/2021), ischemic CM LVEF 30% postop CABG which has since recovered with most recent echocardiogram in 02/15/2022 revealing preserved EF, PAF postoperative CABG, 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 The pain has been spasmodic and intermittent. Sometimes he is able to eat full meal. He didn't have pain or burning while passing urine at presentation. He is being managed for the following: Labs and imaging reveiwed. Cr 2.66; recent CTAP w/ obstructive stone in Rt proximal ureter. Also found to have ascites/cirrhosis in US Renal. Uro/Nephro/GI consult. Hold nephrotoxics. Hep drip in place of eliquis. IVF. Labs in AM. on Exam: GENERAL: Alert and oriented x3. NAD, on RA. HEENT: No pallor, no icterus. Pupils equal, round and reactive to light. Oral mucosa moist. NECK: No JVD, no neck masses. HEART: S1 and S2 heard. Regular rate and rhythm. systolic murmur at aortic and pulmonic area, no gallop. RESPIRATORY SYSTEM: Normal AP diameter. No accessory muscle use. No wheezing, no crackles. ABDOMEN: Soft, bowel sounds present, nontender, no distention. CENTRAL NERVOUS SYSTEM: No facial droop. Speech is clear. Obeys simple commands. Moves extremities. EXTREMITIES: No edema, no erythema seen. No CVA tenderness. I have seen and examined the patient and have discussed the case with the provider above. I agree with the assessment and plan as stated.
[2022-09-18] MEDS ORDERED: DICYCLOMINE HCL 10 MG CAP PO PRN (17:23)
[2022-09-18] MEDS ORDERED: DOCUSATE SODIUM 100 MG CAP PO PRN (17:23)
[2022-09-18] MEDS ORDERED: SODIUM CHLORIDE 0.9% 1000ML 1,000 ML IV SCH (17:30)
[2022-09-18] MEDS ORDERED: GLUCOSE 10 TAB/TUBE PO PRN (17:36)
[2022-09-18] MEDS ORDERED: GLUCAGON FOR INJ 1 MG VIAL SQ PRN (17:36)
[2022-09-18] MEDS ORDERED: DEXTROSE 50% 50 ML SYRINGE IV PRN (17:36)
[2022-09-18] MEDS ORDERED: CARBOHYDRATES FOR HYPOGLYCEMIA PO PRN (17:36)
[2022-09-18] MEDS ORDERED: PHARMACY GLYCEMIC MGMT CONSULT PRN (17:36)
[2022-09-18] MEDS ORDERED: GLUCOSE 40% GEL 15 GM TUBE PO PRN (17:36)
[2022-09-18] MEDS: ASPIRIN 81 MG ECTAB PO SCH (18:28)
--- NOTE | 2022-09-18 19:05 | Urology Consultation ---
Date of Consultation September 18, 2022 Assessment & Plan (1) Right nephrolithiasis: Patient has been admitted on the hospitalist service. Recommend proceeding as follows: Provide IV fluid for hydration Provide analgesics and antiemetics as needed Avoid nephrotoxins due to acute kidney injury Follow serial labs Chakraborty catheter is in place to record accurate I's and O's Flomax has been administered for expulsive therapy At the present time the patient is noted to be hemodynamically stable.He is normotensive and without tachycardia. He is also noted to be afebrile. He does not exhibit leukocytosis. He does have some deterioration of his kidney function noted from his previous evaluation in the emergency department. We will continue to monitor the patient's progress. If he continues to have decline of his renal function with evidence of hydronephrosis he may require cystoscopy with stent placement. History of Present Illness Reason for Consultation: Acute kidney injury with hydronephrosis and history of recent nephrolithiasis Attending Physician: Basil Lew MD History of Present Illness This is a 76-year-old male who was evaluated in the [facility] emergency department on 09/13/2022. Patient presented with right lower quadrant abdominal pain. Patient notes that the pain was described as sharp and originating in the periumbilical region periumbilical that would come and go. He does report history of hernia on the right side of his abdomen that he has not had repaired yet. At that time the patient denied any back or flank pain. He denied any dysuria or hematuria. He did not report any nausea or vomiting but did report some issues with constipation and having to strain to have a bowel movement at that time. During this emergency department visit the patient did have a CT scan of the abdomen and pelvis. This showed the patient had right hydronephrosis with a obstructing kidney stone in the proximal ureter which measured approximately 4 mm. In addition the patient was noted to have a right lower quadrant abdominal wall hernia containing fat and a small amount of fluid. There is also a left fat and fluid containing inguinal hernia. Laboratories during this visit showed a white blood cell count of 4.1. His hemoglobin hematocrit were 13.3 and 41.5. Platelet count was 107,000. His INR was 1.3. Chemistry profile showed sodium and potassium were normal. His BUN and creatinine were 25 and 2.0. (Review of records show that patient's baseline creatinine over the past year has run anywhere from 0.9-1.5) a urinalysis at that time was not indicative of infection. The patient was felt to be stable for discharge home and he was instructed to follow-up with his primary care physician. The patient presented to the emergency department today with no new complaints. He notes that he followed up with his primary care physician today and he was found to have worsening renal function and was consequently told to report to the emergency department for further evaluation. Again the patient denies any back or flank pain. He denies any fevers, shakes, or chills. He denies any nausea or vomiting. He does note that his appetite has not been as good as it usually is. He does note that he continues to have some right lower quadrant abdominal pain from time to time that comes and goes without any palliative or provocative factors. Since arrival to the hospital today the patient has had labs and imaging which I independent reviewed. A KUB showed patient had moderate fecal retention. The previously noted 4 mm kidney stone on the above-noted CT scan was not visualized. A renal ultrasound was performed that showed moderate right hydronephrosis. Ascites and splenomegaly was noted with suspected cirrhosis. Labs today included a CBC her white blood cell count was 3.8. His hemoglobin and hematocrit were 12.9 and 39.5. Platelet count was normal. Chemistry profile showed sodium was 135 with a normal potassium. His BUN and creatinine were 31 and 2.6. Urinalysis was again not indicative of infection. A COVID test was negative. Since arrival to the emergency department the patient has received intravenous fluids and he has had a Chakraborty catheter placed to measure accurate I's and O's. He was in no distress at the time of my interview. Allergies Allergy/AdvReac Type Severity Reaction Status Date / Time Sulfa (Sulfonamide Allergy Unknown CHILDHOOD Verified 09/18/22 16:07 Antibiotics) ALLERGY--CAN'T REMEMBER tramadol AdvReac Severe SEVERE Verified 09/18/22 16:07 VOMITING omeprazole AdvReac Intermediate PER PT Verified 09/18/22 16:07 "DID THE OPPOSITE, MADE ME WORSE". Home Medications Medication Instructions Recorded Confirmed Type ascorbic acid (vitamin C) 500 mg 500 mg PO DAILY 11/08/21 09/18/22 History tablet (Vitamin C) atorvastatin 40 mg tablet 40 mg PO DAILY 11/08/21 09/18/22 History cholecalciferol (vitamin D3) 50 50 mcg PO DAILY 11/08/21 09/18/22 History mcg (2,000 unit) capsule (Vitamin D3) coQ10 (ubiquinol) 200 mg capsule 200 mg PO DAILY 11/08/21 09/18/22 History docusate sodium 100 mg capsule 100 mg PO BID PRN Constipation 11/08/21 09/18/22 History dulaglutide 1.5 mg/0.5 mL 3 mg subcut WK 11/08/21 09/18/22 History subcutaneous pen injector (Trulicity) ferrous sulfate 325 mg (65 mg 325 mg PO DAILY 11/08/21 09/18/22 History iron) tablet insulin glargine 100 unit/mL (3 32 unit subcut HS 11/08/21 09/18/22 History mL) subcutaneous pen (Lantus Solostar U-100 Insulin) levothyroxine 88 mcg tablet 88 mcg PO DAILYBB 11/08/21 09/18/22 History metoprolol succinate 100 mg 100 mg PO BID 11/08/21 09/18/22 History tablet,extended release 24 hr nitroglycerin 0.4 mg sublingual 0.4 mg sublingual DIRECTED PRN 11/08/21 09/18/22 History tablet (Nitrostat) Chest Pain ondansetron HCl 4 mg tablet 4 mg PO Q8H PRN Nausea 11/08/21 09/18/22 History polyethylene glycol 3350 17 17 g PO DAILY PRN Constipation 11/08/21 09/18/22 History gram/dose oral powder (Miralax) Lactobacillus acidophilus 10 10,000 mmu cells PO DAILY 08/24/22 09/18/22 History billion cell capsule (Probiotic) dicyclomine 10 mg capsule 10 mg PO BID PRN ABD CRAMPING 08/24/22 09/18/22 History doxycycline hyclate 100 mg capsule 100 mg PO BID #60 caps 08/27/22 09/18/22 Rx furosemide 20 mg tablet 20 mg PO QAM PRN edema/weight 08/27/22 09/18/22 Rx gain/sob #14 tabs oxycodone 5 mg capsule 5 mg PO Q6H PRN severe pain (scale 09/13/22 09/18/22 Rx score 7-10) #20 caps tamsulosin 0.4 mg capsule (Flomax) 0.4 mg PO DAILY 10 days #10 caps 09/13/22 09/18/22 Rx aspirin 81 mg tablet,delayed 81 mg PO 3XWK 09/18/22 09/18/22 History release rivaroxaban 15 mg tablet (Xarelto) 15 mg PO DAILY 09/18/22 09/18/22 History Patient History Medical History Atrial fibrillation post operative CABG 2020 Carotid artery stenosis MVD mRCA 90% w/ diffuse disease; 80% occlusion of pLAD w/ heavily calcified and 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% 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 L & R 2 L collats Chylothorax Diabetes mellitus 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, months of abtx Hyperlipidemia Hypertension Hypothyroid Ischemic cardiomyopathy LVEF 30% post CABG; GRADE I diastolic dysfunction, 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) use of antibiotics 2 gm bid amoxicillin for empyema through November 2022 TIA (transient ischemic attack) in [place] prior to 2020 AND post operatively 2020 [facility] Surgical History History of coronary artery bypass graft CABG x 3 (PAEZ -LAD; AO-RCA; AO-OM1 w/ graphic SVG on 05/30/2021 Family History Other Heart disease Social History Smoking Status: Never smoker Tobacco Type: Cigarettes packs per day: 1; Hx Alcohol Use: No Hx Substance Use: No Preferred Language: Romansh Communication Ability: Effective Director Of Product Management Required: No Beliefs That Will Affect Care: None Current Living Situation: Spouse Feels Safe at Home: Yes Assistive Devices: Glasses Review of Systems Constitutional: no fever and no chills Eyes: + corrective lenses Ear, Nose, Mouth, Throat: no ear pain Respiratory: no cough and no dyspnea Cardiovascular: no chest pain Gastrointestinal: as per Subjective / HPI Genitourinary: + as per Subjective / HPI Musculoskeletal: no back pain Integumentary: no rash Neurologic: no localized weakness Physical Exam Constitutional: WD/WN, vitals as above Eyes: no conjunctival abnormality Wears glasses ENMT: Ears: no hearing impairment and no external ear abnormality Mouth: no oropharynx abnormality Neck: trachea midline Respiratory: normal respiratory effort; no respiratory distress and no labored breathing Cardiovascular: Rate/Rhythm: regular rate and regular rhythm Gastrointestinal (Abdomen): Patient's abdomen is soft without distention. There is no rebound tenderness or guarding. I did palpate the patient's abdomen and a light as well as a deep manner. I did not appreciate any palpable hernias. Patient did not experience any pain at the time of my exam. Musculoskeletal: No calf tenderness Skin: no rashes Neurologic: moves all extremities Psychiatric: A+Ox3, euthymic affect Genitourinary: no CVA tenderness Results & Data ([facility]) Vital Signs (Past 12 Hours) Vital Signs Temp Pulse Pulse Resp BP BP Pulse Ox 09/18/22 18:24 89 09/18/22 18:02 09/18/22 17:40 37.1 C 90 16 160/78 H 100 09/18/22 17:10 83 17 99 09/18/22 17:00 85 15 99 09/18/22 17:00 139/77 09/18/22 16:50 84 13 98 09/18/22 16:40 85 16 100 09/18/22 16:31 85 13 100 09/18/22 16:31 128/62 09/18/22 16:30 87 18 128/62 99 09/18/22 16:24 89 17 100 09/18/22 16:24 147/85 H 09/18/22 16:23 88 25 H 100 09/18/22 16:10 87 14 98 09/18/22 16:02 85 16 99 09/18/22 16:02 151/75 H 09/18/22 16:00 95 09/18/22 14:40 84 16 100 09/18/22 14:31 85 15 131/78 100 09/18/22 14:28 84 18 09/18/22 14:32 84 09/18/22 13:57 35.9 C L 89 20 131/73 99 O2 Del Method 09/18/22 18:24 09/18/22 18:02 Room Air 09/18/22 17:40 Room Air 09/18/22 17:10 09/18/22 17:00 09/18/22 17:00 09/18/22 16:50 09/18/22 16:40 09/18/22 16:31 09/18/22 16:31 09/18/22 16:30 09/18/22 16:24 09/18/22 16:24 09/18/22 16:23 09/18/22 16:10 09/18/22 16:02 09/18/22 16:02 09/18/22 16:00 09/18/22 14:40 09/18/22 14:31 09/18/22 14:28 09/18/22 14:32 09/18/22 13:57 Room Air PG Care Time/CCT Total # of Minutes Spent Total Time Spent with Patient: Total time spent is greater than 50% in coordination of care (as documented) at patient's floor/unit and/or counseling patient: Coding Level of Care Code 38302 INT INP/OBS CARE 3/75MIN Diagnoses Right nephrolithiasis N20.0
[2022-09-18] MEDS ORDERED: LANTUS PER UNIT CHARGE SQ SCH ×2 (21:00)
[2022-09-18] MEDS ORDERED: APIXABAN 5 MG TABLET PO SCH (21:00)
[2022-09-18] MEDS: METOPROLOL SUCC 50MG EXT REL TAB PO SCH (21:13)
[2022-09-18] MEDS: DOXYCYCLINE HYCLATE 100 MG CAP PO SCH (21:13)
[2022-09-18] MEDS: LANTUS PER UNIT CHARGE SQ SCH (21:14)
[2022-09-18] MEDS: INSULIN ASPART PER UNIT SC SCH (21:15)
[2022-09-18] MEDS ORDERED: Heparin IV Adult Wt-Based Standard *NO* Bolus Protocol IV SCH (21:28)
[2022-09-18 22:32] LABS: INR 1.1 (0.9-1.1); Partial Thromboplastin Ratio 1.3; Partial Thromboplastin Time 36.3 Seconds (21.0-31.0)
[2022-09-18] MEDS: HEPARIN SODIUM/DEXTROSE 25,000 UNITS/500 ML BAG IV SCH (22:37)
[2022-09-18 22:38] LABS: Basophils # (auto) 0.03 K/uL (0-0.2); Basophils % (auto) 0.9 %; Eosinophils # (auto) 0.03 K/uL (0-0.50); Eosinophils % (auto) 0.9 %; Hematocrit (blood only) 35.8 % (42.0-52.0); Hemoglobin 11.6 g/dl (14.0-18.0); Immature Granulocytes # (auto) 0.01 K/uL (0.01-0.20); Immature Granulocytes % (auto) 0.3 %; Lymphocytes # (auto) 0.39 K/uL (1.2-3.4); Lymphocytes % (auto) 11.1 %; Mean Corpuscular Hemoglobin 28.5 pg (25.0-34.0); Mean Corpuscular Hgb Conc 32.4 g/dL (32.0-36.0); Mean Platelet Volume 10.2 fL (9.4-12.4); Monocytes # (auto) 0.45 K/uL (0.11-0.59); Monocytes % (auto) 12.8 %; Neutrophils # (auto) 2.61 K/uL (1.40-6.50); Platelet Count 105 K/uL (130-400); RDW Coefficient of Variation 13.7 % (11.5-14.5); RDW Standard Deviation 44.2 fL (36.4-46.3); Red Blood Count 4.07 M/uL (4.70-6.10); White Blood Count 3.52 K/ul (4.8-10.8)
[2022-09-18] MEDS: ACETAMINOPHEN 325 MG TAB PO PRN (23:44)
--- NOTE | 2022-09-19 00:40 | Communication Note ---
Date of Service: September 19, 2022 Patient informed nurse that he is currently on Eliquis for anticoagulation for history of PAF. Patient no longer taking Xarelto. IV heparin for now while Eliquis on hold in anticipation of urologic intervention. (Urology note indicated possible intervention if with further deterioration of kidney dysfunction secondary to hydronephrosis.)
[2022-09-19 04:22] LABS: Hemoglobin 10.1 g/dl (14.0-18.0); Mean Corpuscular Hemoglobin 28.7 pg (25.0-34.0); Mean Corpuscular Hgb Conc 32.6 g/dL (32.0-36.0); Mean Corpuscular Volume 88.1 fL (80.0-100.0); Mean Platelet Volume 10.4 fL (9.4-12.4); Platelet Count 85 K/uL (130-400); RDW Coefficient of Variation 13.8 % (11.5-14.5); RDW Standard Deviation 44.9 fL (36.4-46.3); Red Blood Count 3.52 M/uL (4.70-6.10); White Blood Count 2.92 K/ul (4.8-10.8)
[2022-09-19 04:42] LABS: BUN Creatinine Ratio 11.3 (10-20); Calcium 8.8 mg/dl (8.5-10.1); Creatinine Clr Calc Pharmacy 27.6 ml/min; Est GFR (African American) 29.6 ml/min; Est GFR (Non-African American) 25.6 ml/min; Magnesium 1.6 mg/dl (1.7-2.4); Phosphorus 2.8 mg/dl (2.5-4.9); Potassium 4.5 mmol/L (3.5-5.1)
[2022-09-19 04:51] LABS: Partial Thromboplastin Ratio > 5.1
[2022-09-19 04:56] LABS: Partial Thromboplastin Time > 139.0 Seconds (21.0-31.0)
[2022-09-19] MEDS: LEVOTHYROXINE SODIUM 88 MCG TABLET PO SCH (05:23)
[2022-09-19] MEDS: DOXYCYCLINE HYCLATE 100 MG CAP PO SCH ×2 (05:23→19:52)
--- NOTE | 2022-09-19 06:51 | Gastrointestinal Consultation ---
Date of Consultation September 19, 2022 Assessment & Plan (1) Cirrhosis of liver with ascites: If cirrhosis is present, likely to be a combination alcoholic/non alcoholic cirrhosis. He was a heavy drinking from age 21 - 41 but has abstained since then. Cirrhosis is not likely to be related to reason for admission. Not suspicious of hepatorenal syndrome (not hypotensive, not significantly hyponatremic, HRS typically occurs years after dx of cirrhosis and this appears to be new cirrhosis w ascites). Plan IP diagnostic paracentesis w fluid albumin, total protein, cell count and culture. Would need to hold Eliquis x 3 days, hold heparin x 6 hrs. Remainder of w/u for cirrhosis can be completed as an OP. Has an OP appt w L Telly November 22 I had a long discussion w the pt regarding the pathophysiology and natural course of cirrhosis. Told to avoid Tylenol, abstain from alcohol and to stay on a low sodium diet. Supervising Physician Co-Signing Physician Notes Patient was seen and examined on 09/19 with ZHAO Arellano whose note reflects our findings and plan. out[atient follow up as above. History of Present Illness Reason for Consultation: Ascite, cirrhosis Requesting Physician: ZHAO Laws Attending Physician: Basil Lew MD History of Present Illness Mr. Norris Francois is a 76 yr old male pt of Dr. 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 He was instructed to present for admission due to worsening renal function. He reports that his abdomen enlarged over the past week (no prior hx of cirrhosis or ascites). A renal US on arrival suggests cirrhosis w ascites, new findings. He denies any yellow eyes or skin. No black or bloody BMs, no hematemesis. No confusion. No edema. No pruritus/rashes/jaundice. Allergies Allergy/AdvReac Type Severity Reaction Status Date / Time Sulfa (Sulfonamide Allergy Unknown CHILDHOOD Verified 09/18/22 16:07 Antibiotics) ALLERGY--CAN'T REMEMBER tramadol AdvReac Severe SEVERE Verified 09/18/22 16:07 VOMITING omeprazole AdvReac Intermediate PER PT Verified 09/18/22 16:07 "DID THE OPPOSITE, MADE ME WORSE". Home Medications Medication Instructions Recorded Confirmed Type ascorbic acid (vitamin C) 500 mg 500 mg PO DAILY 11/08/21 09/18/22 History tablet (Vitamin C) atorvastatin 40 mg tablet 40 mg PO DAILY 11/08/21 09/18/22 History cholecalciferol (vitamin D3) 50 50 mcg PO DAILY 11/08/21 09/18/22 History mcg (2,000 unit) capsule (Vitamin D3) coQ10 (ubiquinol) 200 mg capsule 200 mg PO DAILY 11/08/21 09/18/22 History docusate sodium 100 mg capsule 100 mg PO BID PRN Constipation 11/08/21 09/18/22 History dulaglutide 1.5 mg/0.5 mL 3 mg subcut WK 11/08/21 09/18/22 History subcutaneous pen injector (Trulicity) ferrous sulfate 325 mg (65 mg 325 mg PO DAILY 11/08/21 09/18/22 History iron) tablet insulin glargine 100 unit/mL (3 32 unit subcut HS 11/08/21 09/18/22 History mL) subcutaneous pen (Lantus Solostar U-100 Insulin) levothyroxine 88 mcg tablet 88 mcg PO DAILYBB 11/08/21 09/18/22 History metoprolol succinate 100 mg 100 mg PO BID 11/08/21 09/18/22 History tablet,extended release 24 hr nitroglycerin 0.4 mg sublingual 0.4 mg sublingual DIRECTED PRN 11/08/21 09/18/22 History tablet (Nitrostat) Chest Pain ondansetron HCl 4 mg tablet 4 mg PO Q8H PRN Nausea 11/08/21 09/18/22 History polyethylene glycol 3350 17 17 g PO DAILY PRN Constipation 11/08/21 09/18/22 History gram/dose oral powder (Miralax) Lactobacillus acidophilus 10 10,000 mmu cells PO DAILY 08/24/22 09/18/22 History billion cell capsule (Probiotic) dicyclomine 10 mg capsule 10 mg PO BID PRN ABD CRAMPING 08/24/22 09/18/22 History doxycycline hyclate 100 mg capsule 100 mg PO BID #60 caps 08/27/22 09/18/22 Rx furosemide 20 mg tablet 20 mg PO QAM PRN edema/weight 08/27/22 09/18/22 Rx gain/sob #14 tabs oxycodone 5 mg capsule 5 mg PO Q6H PRN severe pain (scale 09/13/22 09/18/22 Rx score 7-10) #20 caps tamsulosin 0.4 mg capsule (Flomax) 0.4 mg PO DAILY 10 days #10 caps 09/13/22 09/18/22 Rx aspirin 81 mg tablet,delayed 81 mg PO 3XWK 09/18/22 09/18/22 History release apixaban 5 mg tablet (Eliquis) 5 mg PO BID 09/19/22 09/19/22 History Patient History Medical History Atrial fibrillation post operative CABG 2020 Carotid artery stenosis MVD mRCA 90% w/ diffuse disease; 80% occlusion of pLAD w/ heavily calcified and 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/ L 2 L & R 2 L collats Chylothorax Diabetes mellitus 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, months of abtx Hyperlipidemia Hypertension Hypothyroid Ischemic cardiomyopathy LVEF 30% post CABG; GRADE I diastolic dysfunction, 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) use of antibiotics 2 gm bid amoxicillin for empyema through November 2022 [place]IA (transient ischemic attack) in [place] prior to 2020 [place] [facility] [place] History of coronary artery bypass graft CABG x 3 (PAEZ -LAD; AO-RCA; AO-OM1 w/ graphic SVG on 05/30/2021 Family History Other Heart disease Social History Smoking Status: Never smoker Tobacco Type: Cigarettes packs per day: 1; Hx Alcohol Use: No Hx Substance Use: No Preferred Language: Malay Communication Ability: Effective 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 no nausea/vomiting No blood in BMs or black BMs. : Denies pain on urination Skin: No jaundice, itching or new rashes Physical Exam Constitutional: WD/WN, vitals as above Eyes: PERRL, conjunctivae normal, anicteric sclerae ENMT: external ear and nose normal, oropharynx normal Neck: trachea midline, no thyromegaly Respiratory: normal respiratory effort, lungs clear to auscultation Cardiovascular: RRR, no murmur, no edema Gastrointestinal (Abdomen): soft, mild ascites, non tender, no masses Skin: no rashes, warm and dry Neurologic: patellar DTR's 2+ bilat, sensation intact Lymphatic: no cervical or axillary lymphadenopathy Results & Data ([facility]) Vital Signs (Past 12 Hours) Vital Signs Temp Pulse Pulse Resp BP Pulse Ox O2 Del Method 09/19/22 03:59 36.8 C 82 18 108/65 97 Room Air 09/18/22 23:57 94 H 09/18/22 23:35 36.7 C 92 H 18 153/82 H 99 Room Air 09/18/22 19:32 36.7 C 86 20 143/77 H 100 Room Air Laboratory Results WBC 2, Hb10, Hct 31, Plts 85 PT 12, INR 1.1 Na 135, K4.5, Cl111, CO2 21, BUN 27, Cr 2.39, Glucse 116 T BIli 0.8, AST 18, ALT 15, ALk Phos 178, T Protein 6.7, Albumin 3.8 Diagnostic Findings Renal US 09/18/22: 1. Moderate right hydronephrosis. Right ureteral calculus likely sonographically occult. No left hydronephrosis. 2. Suspected cirrhosis. Ascites and splenomegaly.
[2022-09-19 07:02] LABS: Partial Thromboplastin Ratio 1.5; Partial Thromboplastin Time 40.7 Seconds (21.0-31.0)
[2022-09-19] MEDS: ASPIRIN 81 MG ECTAB PO SCH (07:52)
[2022-09-19] MEDS: LACTOBACILLUS ACIDOPHILUS 1 GM PACK PO SCH (07:53)
[2022-09-19] MEDS: METOPROLOL SUCC 50MG EXT REL TAB PO SCH ×2 (07:53→19:52)
[2022-09-19] MEDS: FERROUS SULFATE 325 MG TAB PO SCH (07:53)
[2022-09-19] MEDS: ATORVASTATIN 40 MG TAB PO SCH (07:54)
[2022-09-19] MEDS: CHOLECALCIFEROL 1,000 UNITS 25 MCG TAB PO SCH (07:54)
[2022-09-19] MEDS: TAMSULOSIN HCL 0.4 MG CAP PO SCH (07:54)
[2022-09-19] MEDS: ASCORBIC ACID 500 MG TAB PO SCH (07:55)
[2022-09-19] MEDS: INSULIN ASPART PER UNIT SC SCH ×4 (07:57→20:40)
[2022-09-19] MEDS: SODIUM CHLORIDE 0.45 % 1,000 ML IV SCH ×2 (08:01→19:34)
[2022-09-19 08:15] LABS: Estimated Average Glucose 146 mg/dl; Hemoglobin A1C 6.7 % (4.5-5.6)
[2022-09-19] MEDS ORDERED: NON-FORMULARY MEDICATION (Coq10 (Ubiquinol) 200 mg Capsule) PO SCH (09:00)
[2022-09-19] MEDS: MAGNESIUM SULFATE / D5W 1 GM/100 ML BAG IV SCH ×2 (09:07→11:17)
--- NOTE | 2022-09-19 09:16 | Urology Progress Note ---
Date of Service September 19, 2022 Assessment & Plan (1) Hydronephrosis: (2) Calculus of proximal right ureter: Plan: Follow-up of 4 mm right proximal ureteral stone, DELIA. Patient is afebrile and hemodynamically stable. Lab work reviewedcreatinine improved today to 2.39, no leukocytosis. UA on arrival was not suspicious for infection, no culture pending. Denies significant pain. Discussed options for stone management including trial of passage vs surgical i ntervention while inpatient with right ureteral stent placement vs outpatient intervention with ESWL or ureteroscopy, laser lithotripsy, and stent placement. Ureteral stents were discussed in detail. He reports to me that he was referred to the hospital by his PCP for elevated creatinine and cardiac issue. Will discuss with hospital medicine team whether patient is medically stable for urologic procedure. He is pending nephrology consult. - Discussed with hospitalist, patient will have echo today. - Okay to resume diet today, make NPO at midnight to reassess for urologic procedure tomorrow. - Chakraborty draining appropriately - strain all urine. - Continue supportive care and medical management per hospital medicine. - Currently on Heparin gtt, possibly pending a paracentesis per hospitalist. - will follow. Admission and Anticipated Discharge Date Admission Date: September 18, 2022 Subjective Patient seen and examined at bedside this morning. He is awake, alert and sitting up in bed. He reports intermittent right lower quadrant abdominal pain, relieved with Tylenol as needed. He states discomfort feels similar to his discomfort related to known hernia which comes and goes. Tolerating Chakraborty catheter. Chakraborty patent and draining clear yellow urine, some maroon sediment noted in tubing. No nausea or vomiting. No fever or chills. He is NPO. Review of Systems Constitutional: as per Subjective / HPI Respiratory: no dyspnea Cardiovascular: no chest pain Gastrointestinal: as per Subjective / HPI Genitourinary: + as per Subjective / HPI Physical Exam Constitutional: well developed and well nourished; no acute distress and not ill appearing Respiratory: normal respiratory effort; no respiratory distress and no labored breathing Gastrointestinal (Abdomen): Inspection/Auscultation: abdomen normal to inspection; abdomen not distended Percussion/Palpation: abdomen soft; abdomen nontender Musculoskeletal: Head/Neck/Chest: normocephalic and head atraumatic Neurologic: moves all extremities and awake Psychiatric: Orientation: alert and oriented x 3 Genitourinary: Chakraborty patent and draining clear yellow urine, some maroon sediment noted in tubing Results & Data ([facility]) Vital Signs (Past 12 Hours) Vital Signs Temp Pulse Pulse Resp BP Pulse Ox O2 Del Method 09/19/22 07:42 36.5 C 77 18 116/71 96 Room Air 09/19/22 03:59 36.8 C 82 18 108/65 97 Room Air 09/18/22 23:57 94 H 09/18/22 23:35 36.7 C 92 H 18 153/82 H 99 Room Air PG Care Time/CCT Total # of Minutes Spent Total Time Spent with Patient: Total time spent is greater than 50% in coordination of care (as documented) at patient's floor/unit and/or counseling patient: Coding Level of Care Code 76158 SUB INP/OBS CARE 2/35MIN Diagnoses Hydronephrosis N13.30 Calculus of proximal right ureter N20.1
[2022-09-19] MEDS: ACETAMINOPHEN 325 MG TAB PO PRN ×2 (09:30→21:49)
--- NOTE | 2022-09-19 09:31 | Pharmacy Report ---
Pharmacy Glycemic Short Note 2 - Date of Service September 19, 2022 - Glycemic Short BSG Results (Last 24 hours): 09/18/22 09/18/22 09/18/22 14:30 17:38 20:14 Glucose 194 H POC Glucose 161 H 178 H 09/19/22 09/19/22 04:12 07:35 Glucose 116 H POC Glucose 129 H OUTPATIENT ANTIDIABETIC REGIMEN: * Lantus 32 units SQ HS * Trulicity 3mg SQ weekly HbA1C: 6.7% ASSESSMENT: * Pt is a 76 year old male with a history of type 2 diabetes admitted with right nephrolithiasis and DELIA. Pharmacy consulted to assist with glycemic management while inpatient. * BSGs since admission: [phone]/dL. Pt received 12 units of basal insulin last night and 2 units of bolus. * Currently NPO, on a heparin drip and receiving PO doxycycline. * Will continue with reduced dose HS Lantus scale pending BSG while NPO. Novolog ACHS moderate stress. PLAN FOR INPATIENT GLYCEMIC CONTROL: * Hold outpatient oral diabetes medications * Basal insulin * Lantus HS scale pending BSG * Bolus insulin * NovoLog per scale ACHS or Q6hrs while NPO * Goal Range: Low 110 mg/dL - High 140 mg/dL * Correction Factor: 30 mg/dL/unit * Nutritional / Prandial insulin per carb ratio of 1 unit per 10 grams CHO consumed
--- NOTE | 2022-09-19 10:59 | Ultrasound Report ---
ABDOMINAL ULTRASOUND, RIGHT UPPER QUADRANT HISTORY: new cirrhosis. COMPARISON: Abdomen and pelvis CT 09/13/2022. FINDINGS: Pancreas: Not well visualized due to overlying bowel gas. Liver: Nodular contour to the liver consistent with cirrhosis. Scattered punctate calcified granuloma is are again noted within the liver. No hepatic masses. Gallbladder: The gallbladder is surgically absent. CBD: 5 mm. This could be due to the patient's postcholecystectomy state and appears stable. Right kidney: Mild right hydronephrosis, unchanged. Miscellaneous: Small amount of perihepatic ascites again noted. IMPRESSION: 1. Cirrhotic liver with a small amount of perihepatic ascites, unchanged. 2. Stable mild right hydronephrosis 3. Cholecystectomy. ACT 112: Negative or not required by law. Electronically signed by: Ever Dalton M.D. 09/19/2022 10:57 AM
--- NOTE | 2022-09-19 11:00 | Ultrasound Report ---
US duplex portal hepatic veins CLINICAL HISTORY: new cirrhosis; r/o portal vein thrombosis COMPARISON STUDY: None. FINDINGS: The portal and hepatic veins are patent and demonstrate a normal direction of flow. Cirrhot ic liver with a small amount of perihepatic ascites IMPRESSION: No evidence for portal vein thrombosis. ACT 112: Negative or not required by law. Electronically signed by: Ever Dalton M.D. 09/19/2022 10:59 AM
--- NOTE | 2022-09-19 11:58 | Nephrology Consultation ---
Date of Consultation September 19, 2022 Assessment & Plan (1) DELIA (acute kidney injury): likely on some CKD; baseline creatinine in 2022 appears to be mid to high ones at least. admitted 09/18 with creat 2.7, improved to 2.4 today. not oliguric; no proteinuria or microhemturia -OK w/ 1/2 NS at 80 ml/min for now to lessen hyperchloremia -daily bmp -current meds OK -monitor mag daily (2) Hydronephrosis: per urology; favor relieving obstruction when clinically feasible (3) Right nephrolithiasis: first episode; per urology; metabolic w/u as OP; fluid intake targets not discussed (4) Pancytopenia: ongoing compared to last month and with now worse leukopenia ? from doxycycilne ?consider reconsulting ID or / and heme eval, possibly as OP History of Present Illness Reason for Consultation: hydronephrosis, delia Requesting Physician: LISA Madison Attending Physician: Basil Lew MD History of Present Illness 76 y/o M whom I'm asked to see for DELIA and hydronephrosis was admitted yesterday after seeing PCP for worsening RLQ pain and noted to have DELIA. Found on presentation to have R proximal ureteral stone w/ moderate R hydronephrosis on u/s; urology following and waiting on medical clearance in order to decide on best clinical care. Past medical history includes over 20 years of diabetes with a baseline creatinine of 1.2 (CKD 3A) before May 2021 when he underwent three-vessel CABG with series of complications including chylothorax, pericardial effusion status post pericardiocentesis. 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 He was on Zyvox and IV ceftriaxone initially through November 2021 then changed to Augmentin which was changed by infectious diseases April 2022 to amoxicillin with planned course through November 2022 due to concerns about blackened teeth and GI upset. Other medical history includes ischemic cardiomyopathy with initial ejection fraction post CABG at about 30% but w/ normal EF by 02/2022, hypertension, hypothryoid, laryngopharyngeal reflux and cricopharyngeal dysphagia s/p cricopharyngeal area dilatation and w/ grade 1 distal esophageal varices on June 2022 EGD, [place] per March cardiology note begun in the wake of TIA both postoperatively in 2020 after CABG and based on MRI from [place] prior to 05/2021 showing chronic white matter disease and suspected infarction. Admitted here last month for DELIA w/ pancytopenia and transaminitis attributed in part to amoxicillin; amoxicillin changed at that time to doxycycline w/ planned course through November 2022. At that admission he also endorsed recurrent epistaxis 3-4 times monthly and lasting per son for days w/ negative eval by ENT. His presenting creatinine was 2.0 on 08/24, down to 1.6 by 08/27 d/c and losartan held on d/c w/ lasix prn only. Also s/p thoracic duct embolization 09/06/[address] Jean. Patient's baseline creatinine runs 1.1 from November 2021 through December 2021. Next check of creatinine was July 2022 with value 1.6. This increased to 2.1 on August 23, prompting PCP visit. In addition to creatinine elevation, transaminitis had been noted as well. Patient noted at that visit on August 24 to have blood pressure 82/48 with blood pressure 98/54 on prior August 17 [facility] encounter. Also endorsed recurrent nosebleeds and melena as well as 7 lb wt loss April 2022 through August 2022. Right upper quadrant ultrasound late July was unremarkable. Pt noted on 09/13 to have creatinine 2.1. On presentation yesterday it was 2.7, down to 2.4 today. Admission u/s also remarkable forsuspected cirrhosis and ascites. Pt has since last hospital admission had 1- nosebleeds including one that put him in ER. states also his appetite fell again w/in a week of hospital d/c and has remained low. endorses generalized weakness, states his R sided abd pain since admission has improved. no sob, no n/v, no gross hematuria. Allergies Allergy/AdvReac Type Severity Reaction Status Date / Time Sulfa (Sulfonamide Allergy Unknown CHILDHOOD Verified 09/18/22 16:07 Antibiotics) ALLERGY--CAN'T REMEMBER tramadol AdvReac Severe SEVERE Verified 09/18/22 16:07 VOMITING omeprazole AdvReac Intermediate PER PT Verified 09/18/22 16:07 "DID THE OPPOSITE, MADE ME WORSE". Home Medications Medication Instructions Recorded Confirmed Type ascorbic acid (vitamin C) 500 mg 500 mg PO DAILY 11/08/21 09/18/22 History tablet (Vitamin C) atorvastatin 40 mg tablet 40 mg PO DAILY 11/08/21 09/18/22 History cholecalciferol (vitamin D3) 50 50 mcg PO DAILY 11/08/21 09/18/22 History mcg (2,000 unit) capsule (Vitamin D3) coQ10 (ubiquinol) 200 mg capsule 200 mg PO DAILY 11/08/21 09/18/22 History docusate sodium 100 mg capsule 100 mg PO BID PRN Constipation 11/08/21 09/18/22 History dulaglutide 1.5 mg/0.5 mL 3 mg subcut WK 11/08/21 09/18/22 History subcutaneous pen injector (Trulicity) ferrous sulfate 325 mg (65 mg 325 mg PO DAILY 11/08/21 09/18/22 History iron) tablet insulin glargine 100 unit/mL (3 32 unit subcut HS 11/08/21 09/18/22 History mL) subcutaneous pen (Lantus Solostar U-100 Insulin) levothyroxine 88 mcg tablet 88 mcg PO DAILYBB 11/08/21 09/18/22 History metoprolol succinate 100 mg 100 mg PO BID 11/08/21 09/18/22 History tablet,extended release 24 hr nitroglycerin 0.4 mg sublingual 0.4 mg sublingual DIRECTED PRN 11/08/21 09/18/22 History tablet (Nitrostat) Chest Pain ondansetron HCl 4 mg tablet 4 mg PO Q8H PRN Nausea 11/08/21 09/18/22 History polyethylene glycol 3350 17 17 g PO DAILY PRN Constipation 11/08/21 09/18/22 History gram/dose oral powder (Miralax) Lactobacillus acidophilus 10 10,000 mmu cells PO DAILY 08/24/22 09/18/22 History billion cell capsule (Probiotic) dicyclomine 10 mg capsule 10 mg PO BID PRN ABD CRAMPING 08/24/22 09/18/22 History doxycycline hyclate 100 mg capsule 100 mg PO BID #60 caps 08/27/22 09/18/22 Rx furosemide 20 mg tablet 20 mg PO QAM PRN edema/weight 02/19/23 03/13/23 Rx gain/sob #14 tabs oxycodone 5 mg capsule 5 mg PO Q6H PRN severe pain (scale 09/13/22 09/18/22 Rx score 7-10) #20 caps tamsulosin 0.4 mg capsule (Flomax) 0.4 mg PO DAILY 10 days #10 caps 09/13/22 09/18/22 Rx aspirin 81 mg tablet,delayed 81 mg PO 3XWK 09/18/22 09/18/22 History release apixaban 5 mg tablet (Eliquis) 5 mg PO BID 09/19/22 09/19/22 History Patient History Medical History Atrial fibrillation post operative CABG 2020 Carotid artery stenosis MVD mRCA 90% w/ diffuse disease; 80% occlusion of pLAD w/ heavily calcified and 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 Chylothorax Diabetes mellitus 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, months of abtx Hyperlipidemia Hypertension Hypothyroid Ischemic cardiomyopathy LVEF 30% post CABG; GRADE I diastolic dysfunction, NYHA class 2 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) use of antibiotics 2 gm bid amoxicillin for empyema through November 2022 TIA (transient ischemic attack) in [place] prior to 2020 AND post operatively 2020 [facility] [place] History History of coronary artery bypass graft CABG x 3 (PAEZ -LAD; AO-RCA; AO-OM1 w/ graphic SVG on 05/30/2021 Family History Other Heart disease Social History Smoking Status: Never smoker Tobacco Type: Cigarettes packs per day: 1; Hx Alcohol Use: No Hx Substance Use: No Preferred Language: Moroccan Communication Ability: Effective 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: No Beliefs That Will Affect Care: None Current Living Situation: Spouse Feels Safe at Home: Yes Assistive Devices: Glasses Review of Systems Review of Systems: All systems reviewed & are unremarkable except as noted in HPI & below Physical Exam Constitutional: well developed, + thin, + frail appearing (1person assist to sit up) and cooperative; no acute distress Eyes: EOM intact bilaterally ENMT: Ears: no external ear abnormality Nose: no external nose abnormality Mouth: + dry oral mucous membranes Neck: no nuchal rigidity Respiratory: normal respiratory effort Auscultation: + diminished lung sounds and + crackles (R base) Gastrointestinal (Abdomen): Inspection/Auscultation: normal bowel sounds Percussion/Palpation: abdomen soft and + ascites; abdomen nontender and no guarding Musculoskeletal: Extremities: strength 5/5 throughout Skin: no rashes, warm and dry Neurologic: nevarez, fluent speech, no tremor Psychiatric: Orientation: oriented x 3 Genitourinary: morris w/ brown urine Results & Data ([facility]) Vital Signs (Past 12 Hours) Vital Signs Temp Pulse Pulse Resp BP Pulse Ox O2 Del Method 09/19/22 07:30 81 09/19/22 09:00 Room Air 09/19/22 07:42 36.5 C 77 18 116/71 96 Room Air 09/19/22 03:59 36.8 C 82 18 108/65 97 Room Air 09/18/22 23:57 94 H Laboratory Results 09/19/22 04:12 09/19/22 04:12
[2022-09-19] MEDS ORDERED: INSULIN ASPART PER UNIT SC SCH (12:00)
[2022-09-19 14:16] LABS: Partial Thromboplastin Time 82.7 Seconds (21.0-31.0)
--- NOTE | 2022-09-19 15:16 | Hospitalist Progress Note ---
Date of Service September 19, 2022 Assessment & Plan (1) Right nephrolithiasis: (2) Right lower quadrant abdominal pain: (3) CAD (coronary artery disease): (4) Atrial fibrillation: (5) alf (current) use of antibiotics: (6) Diabetes mellitus: (7) Hypertension: (8) Hyperlipidemia: (9) Hypothyroid: (10) Carotid artery stenosis: Plan 76-year-old male with PMH of CAD s/p CABG x3 (PAEZ to LAD, AO to RCA, AO to OM1 05/2021), ischemic CM LVEF 30% postop CABG which has since recovered with most recent echocardiogram in 02/15/2022 revealing preserved EF, PAF postoperative CABG, 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 The pain has been spasmodic and intermittent. Sometimes he is able to eat full meal. He didn't have pain or burning while passing urine at presentation. He is being managed for the following: Acute kidney injury over CKD stage III Right Hydronephrosis Patient was referred to emergency due to worsening kidney function detected in an outpatient of while evaluating for right lower quadrant pain. Over the past year, patient had a gradual decrease in renal function. In December 2021 was 1.2, then July 2022 1.6 08/24 -- 2.04, 09/18 -- 2.66. Of note, patient was recently in the ED 09/16 for RLQ pain, CTAP done did show right hydronephrosis and hydroureter with an obstructive stone in the proximal ureter. Patient does complain of intermittent right lower quadrant pain, spasmodic in nature, this has affected his p.o. intake of food and fluids. At times he is able to take his food if he does not have pain. Admitting labs: Blood cell lines around his baseline, creatinine 2.66. ALP 178, rest of the liver function WNL. Admitting imagings: KUB x-ray and renal ultrasound noted. Moderate right hydronephrosis and suspected cirrhosis with ascites and splenomegaly noted. Continue with IV fluids, creatinine minimally trending down Avoid nephrotoxic's [losartan and Lasix held since last admission] Nephrology on board, await recommendations. Follow-up labs in AM. Discussed with urology, plan for intervention tomorrow, okay with continuing heparin drip per them. Patient does have history of aortic valve sclerosis and MR, patient does not report any decline in his activity level but he is generally weak, denies any chest pain or shortness of breath or dizziness with his baseline level of activity. Last echo on 02/14/2022 per outpatient chart review: Normal LV chamber size/wall thickness/systolic function with EF of 55 to 60%, grade 2 diastolic dysfunction. Moderate aortic valve sclerosis without stenosis and mild MR. ECHO ordered and reviewed 09/19 - noted small apical hypokinesis; d/w cardio - it is consistent w/ his h/o previous infarct and ischemic CM. No further eval needed as patient reports activity level at his baseline/and no s/s of acs/angina. Pt is at moderate risk for procedures given his comorbidities. Ascites and Cirrhosis: noted in Renal US at admission, appears new. Patient's last dose of Eliquis 09/18 in the morning. Diagnostic and therapeutic paracentesis [needs off of Eliquis for 3 days and heparin drip held 8 hours prior paracentesis]. Currently on heparin drip, needs to be held prior to paracentesis accordingly. Liver ultrasound: Cirrhotic liver with small amount of perihepatic ascites. Cholecystectomy. Portal vein ultrasound: No evidence of portal vein thrombosis GI on board, appreciate recommendation Tylenol less than 2 g/day, avoid other hepatotoxic's. Other chronic medical conditions: T2DM: A1c last July 16.4, sliding scale while inpatient. Hold p.o. meds. Will need close follow-up with PCP for ongoing management of diabetes, will likely need up titration of his insulin dose upon discharge. 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 Maintain follow-up with ID. GERD: Recommended to be on lifelong PPI, however he stopped this and feels his symptoms have improved slightly. CAD s/p CABG x3, ischemic CM, PAF, RBBB, HTN, HLD: Continue home aspirin/statin/coenzyme 10/metoprolol. Losartan and Lasix held. Recent echosee above. CVA: Continue with ASA/statin. Eliquis on hold/on heparin drip until paracentesis, then can put back on Eliquis if no further procedures after suspected Disposition: PT/OT, CM to assist with DC planning. Likely in next few days PCP: Dr. Meadows Code Status: Full code VTE Prophylaxis: On Hep Drip. Admission and Anticipated Discharge Date Admission Date: September 18, 2022 Subjective Patient seen and examined at bedside as a follow-up of DELIA, right hydronephrosis, ascites and likely new liver cirrhosis. Patient was lying in bed, on room air, NAD, reports intermittent right lower belly pain relieved with Tylenol, denies fever or chills or headache or sore throat, is n.p.o. for possible intervention today, denies any chest pain or belly pain otherwise, reports bowel movement at baseline. Patient does report that his activity level has not decreased, he is generally weak but he does not get short of breath or chest pain with the level of activity he has been doing in the past. Physical Exam Physical Exam: GENERAL: Alert and oriented x3. NAD, on RA. HEENT: No pallor, no icterus. Pupils equal, round and reactive to light. Oral mucosa moist. NECK: No JVD, no neck masses. HEART: S1 and S2 heard. Regular rate and rhythm. systolic murmur at aortic and pulmonic area, no gallop. RESPIRATORY SYSTEM: Normal AP diameter. No accessory muscle use. No wheezing, no crackles. ABDOMEN: Soft, bowel sounds present, nontender, no distention. CENTRAL NERVOUS SYSTEM: No facial droop. Speech is clear. Obeys simple commands. Moves extremities. EXTREMITIES: No edema, no erythema seen. No CVA tenderness. Results & Data Results & Data ([facility]) Vital Signs (Past 12 Hours) Vital Signs Temp Pulse Pulse Resp BP Pulse Ox O2 Del Method 09/19/22 07:30 81 09/19/22 09:00 Room Air 09/19/22 07:42 36.5 C 77 18 116/71 96 Room Air 09/19/22 03:59 36.8 C 82 18 108/65 97 Room Air
[2022-09-19] MEDS ORDERED: Nursing to Pharmacy Communication SCH (15:45)
[2022-09-19] MEDS ORDERED: RIVAROXABAN 15 MG TAB PO SCH (18:30)
[2022-09-19] MEDS: LANTUS PER UNIT CHARGE SQ SCH (20:39)
[2022-09-19 21:40] LABS: Partial Thromboplastin Time 83.4 Seconds (21.0-31.0)
[2022-09-19] MEDS: HEPARIN SODIUM/DEXTROSE 25,000 UNITS/500 ML BAG IV SCH ×2 (21:43→23:38)
[2022-09-20] MEDS: oxyCODONE HCL IR 5 MG TAB (IMMEDIATE RELEASE) PO PRN ×2 (00:36→10:06)
[2022-09-20 04:36] LABS: Hematocrit (blood only) 33.5 % (42.0-52.0); Hemoglobin 10.9 g/dl (14.0-18.0); Mean Corpuscular Hemoglobin 28.5 pg (25.0-34.0); Mean Corpuscular Hgb Conc 32.5 g/dL (32.0-36.0); Mean Corpuscular Volume 87.5 fL (80.0-100.0); Mean Platelet Volume 11.2 fL (9.4-12.4); Platelet Count 93 K/uL (130-400); RDW Coefficient of Variation 13.7 % (11.5-14.5); RDW Standard Deviation 44.1 fL (36.4-46.3); Red Blood Count 3.83 M/uL (4.70-6.10); White Blood Count 4.56 K/ul (4.8-10.8)
[2022-09-20 04:45] LABS: BUN Creatinine Ratio 10.7 (10-20); Calcium 8.7 mg/dl (8.5-10.1); Creatinine Clr Calc Pharmacy 27.1 ml/min; Est GFR (Non-African American) 25.1 ml/min; Magnesium 1.7 mg/dl (1.7-2.4); Phosphorus 2.7 mg/dl (2.5-4.9); Potassium 4.9 mmol/L (3.5-5.1)
[2022-09-20 05:10] LABS: Partial Thromboplastin Ratio 2.9
[2022-09-20 05:37] LABS: Partial Thromboplastin Time 78.9 Seconds (21.0-31.0)
[2022-09-20] MEDS: LEVOTHYROXINE SODIUM 88 MCG TABLET PO SCH (05:39)
[2022-09-20] MEDS: DOXYCYCLINE HYCLATE 100 MG CAP PO SCH ×2 (05:39→20:13)
[2022-09-20] MEDS: HEPARIN SODIUM/DEXTROSE 25,000 UNITS/500 ML BAG IV SCH (07:05)
[2022-09-20] MEDS: INSULIN ASPART PER UNIT SC SCH ×4 (07:30→20:09)
--- NOTE | 2022-09-20 09:15 | Urology Progress Note ---
Date of Service September 20, 2022 Assessment & Plan (1) Calculus of proximal right ureter: (2) Hydronephrosis: (3) DELIA (acute kidney injury): Plan: Follow-up of 4 mm right proximal ureteral stone, DELIA. Patient is afebrile and hemodynamically stable. Lab work reviewedcreatinine increased today to 2.43, no leukocytosis. UA on arrival was not suspicious for infection, no urine culture pending. Reports intermittent RLQ discomfort, no significant pain. He underwent ECHO yesterday. Per hospitalist note, findings were discussed with cardiology and consistent with his h/o previous infarct and ischemic CM. No further evaluation needed since patient denies s/s of acs/angina. Discussed options for stone management including surgical intervention while inpatient with right ureteral stent placement. Discussed recommendation/goal to relieve obstruction. Ureteral stents were discussed in detail. We discussed need for stone treatment at a later date. He is agreeable to stent placement today. Findings reviewed with Dr. Young. Given his DELIA and hydroureteronephrosis in the context of an obstructing right ureteral stone, will proceed with OR for cystoscopy, Right retrograde pyelogram and Right stent placement. Risks and benefits to be reviewed with patient by Dr. Young. OR notified. Will cover with IV Ceftriaxone preoperatively. -Keep NPO for procedure -Strain all urine - will follow Admission and Anticipated Discharge Date Admission Date: September 18, 2022 Supervising Physician Co-Signing Physician Notes Discussed patient with TAMIKA. Agree with plan. We will plan with cystoscopy and right stent placement due to obstructing stone and DELIA Subjective Patient seen and examined at bedside this morning. He is awake, alert and resting in bed. No acute issues overnight. He reports intermittent right lower quadrant abdominal discomfort, relieved with Tylenol. No nausea or vomiting. No fever or chills. No chest pain or shortness of breath. He underwent echocardiogram yesterday for evaluation of murmur. He is pending a paracentesis in a few days. He is currently on a heparin drip. Review of Systems Constitutional: as per Subjective / HPI Respiratory: no dyspnea Cardiovascular: no chest pain Gastrointestinal: as per Subjective / HPI Genitourinary: + as per Subjective / HPI Physical Exam Constitutional: well developed and well nourished; no acute distress and not ill appearing Respiratory: normal respiratory effort; no respiratory distress and no labored breathing Gastrointestinal (Abdomen): Inspection/Auscultation: abdomen normal to inspection; abdomen not distended Percussion/Palpation: abdomen soft; abdomen nontender Musculoskeletal: Head/Neck/Chest: normocephalic and head atraumatic Neurologic: moves all extremities and awake Psychiatric: Orientation: alert and oriented x 3 Genitourinary: Chakraborty patent and draining light maroon sediment noted in tubing Results & Data ([facility]) Vital Signs (Past 12 Hours) Vital Signs Temp Pulse Pulse Resp BP Pulse Ox O2 Del Method 09/20/22 08:12 37.1 C 86 16 124/72 96 Room Air 09/20/22 04:15 37.4 C 86 20 123/70 96 Room Air 09/19/22 23:59 85 09/19/22 23:49 37.1 C 91 H 20 129/73 96 Room Air PG Care Time/CCT Total # of Minutes Spent Total Time Spent with Patient: Total time spent is greater than 50% in coordination of care (as documented) at patient's floor/unit and/or counseling patient: Coding Level of Care Code 03028 SUB INP/OBS CARE 2/35MIN Diagnoses Calculus of proximal right ureter N20.1 Hydronephrosis N13.30 DELIA (acute kidney injury) N17.9
[2022-09-20] MEDS: FERROUS SULFATE 325 MG TAB PO SCH (09:20)
[2022-09-20] MEDS: METOPROLOL SUCC 50MG EXT REL TAB PO SCH ×2 (09:20→20:12)
[2022-09-20] MEDS: ASCORBIC ACID 500 MG TAB PO SCH (09:21)
[2022-09-20] MEDS: TAMSULOSIN HCL 0.4 MG CAP PO SCH (09:21)
[2022-09-20] MEDS: CHOLECALCIFEROL 1,000 UNITS 25 MCG TAB PO SCH (09:21)
[2022-09-20] MEDS: ATORVASTATIN 40 MG TAB PO SCH (09:21)
[2022-09-20] MEDS: LACTOBACILLUS ACIDOPHILUS 1 GM PACK PO SCH (09:23)
--- NOTE | 2022-09-20 10:04 | Gastroenterology Progress Note ---
Date of Service September 20, 2022 Assessment & Plan (1) Cirrhosis of liver with ascites: Plan: Likely alcoholic/non alcoholic cirrhosis. Cirrhosis is not likely to be worsening kidney function. Plan IP diagnostic paracentesis w fluid cytology, albumin, total protein, cell count and culture. Would need to hold Eliquis x 3 days, hold heparin x 6 hrs. Claudette for tomorrow. Remainder of w/u for cirrhosis can be completed as an OP. Has an OP appt w Leann Varner November 22. Low sodium diet. Admission and Anticipated Discharge Date Admission Date: September 18, 2022 Supervising Physician Co-Signing Physician Notes I have seen and examined the patient with ZHAO Arellano whose note reflects our findings and plan. Patient will have diag para tomorrow. Liver US and doppler reviewed. OUtpatient f/u with Bibi Varner following discharge. Subjective 76, male. Awake, alert. Generally weak. No c/o pain. New cirrhosis on renal US then liver US yesterday w cirrhosis, small ascites. Per protocol, paracentesis not done yesterday as prefer a 3 day washout from Eliquis and hold heparin 6hrs prior. Cr worsening improved compared to 2 days ago, sl worse today at 2.4. Pt awaiting ureteral stenting today. Review of Systems Review of Systems: ROS: Gen: + general weakness No fevers, weight loss No confusion Eyes: No eye redness, or pain, no recent vision changes Resp: No SOB, no cough Cardio: No palpitations/irregular beats, no chest pain GI: + abd girth over the past week; + intermittent RLQ abd pain - when a known hernia protrudes - not recently. no nausea/vomiting No blood in BMs or black BMs. : Denies pain on urination Skin: No jaundice, itching or new rashes Physical Exam Constitutional: WD/WN, vitals as above Eyes: PERRL, conjunctivae normal, anicteric sclerae ENMT: external ear and nose normal, oropharynx normal Neck: trachea midline, no thyromegaly Respiratory: normal respiratory effort, lungs clear to auscultation Cardiovascular: RRR, no murmur, no edema Gastrointestinal (Abdomen): normal bowel sounds, soft, nontender, no hepatosplenomegaly Skin: no rashes, warm and dry Neurologic: patellar DTR's 2+ bilat, sensation intact Psychiatric: A+Ox3, euthymic affect Lymphatic: no cervical or axillary lymphadenopathy Results & Data ([facility]) Vital Signs (Past 12 Hours) Vital Signs Temp Pulse Pulse Resp BP Pulse Ox O2 Del Method 09/20/22 08:12 37.1 C 86 16 124/72 96 Room Air 09/20/22 04:15 37.4 C 86 20 123/70 96 Room Air 09/19/22 23:59 85 09/19/22 23:49 37.1 C 91 H 20 129/73 96 Room Air Laboratory Results WBC 4.5, Hb 10.9, Hct 33.5, Plts 93, PT 78, INR 2.9, Na 132, K 4.9, Cl 107, CO2 18, BUN 26, Cr 2.4
--- NOTE | 2022-09-20 10:42 | Hospitalist Progress Note ---
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: (6) Diabetes mellitus: (7) Hypertension: (8) Hyperlipidemia: (9) Hypothyroid: (10) Carotid artery stenosis: Plan As per previous hospitalist with addendum Plan 76-year-old male with PMH of CAD s/p CABG x3 (PAEZ to LAD, AO to RCA, AO to OM1 05/2021), ischemic CM LVEF 30% postop CABG which has since recovered with most recent echocardiogram in 02/15/2022 revealing preserved EF, PAF postoperative CABG, 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 The pain has been spasmodic and intermittent. Sometimes he is able to eat full meal. He didn't have pain or burning while passing urine at presentation. He is being managed for the following: Acute kidney injury over CKD stage III Right Hydronephrosis Patient was referred to emergency due to worsening kidney function detected in an outpatient of while evaluating for right lower quadrant pain. Over the past year, patient had a gradual decrease in renal function. In December 2021 was 1.2, then July 2022 1.6 08/24 -- 2.04, 09/18 -- 2.66. Of note, patient was recently in the ED 09/16 for RLQ pain, CTAP done did show right hydronephrosis and hydroureter with an obstructive stone in the proximal ureter. Patient does complain of intermittent right lower quadrant pain, spasmodic in nature, this has affected his p.o. intake of food and fluids. At times he is able to take his food if he does not have pain. Admitting labs: Blood cell lines around his baseline, creatinine 2.66. ALP 178, rest of the liver function WNL. Admitting imagings: KUB x-ray and renal ultrasound noted. Moderate right hydronephrosis and suspected cirrhosis with ascites and splenomegaly noted. Avoid nephrotoxic's [losartan and Lasix held since last admission] Nephrology consulted, appreciate their input Follow-up labs in AM. Urology consulted - s/p R ureter stent placement. Chakraborty catheter placed after procedure. Gross hematuria noted. IV heparin put on hold. Patient does have history of aortic valve sclerosis and MR, patient does not report any decline in his activity level but he is generally weak, denies any chest pain or shortness of breath or dizziness with his baseline level of activity. Last echo on 02/14/2022 per outpatient chart review: Normal LV chamber size/wall thickness/systolic function with EF of 55 to 60%, grade 2 diastolic dysfunction. Moderate aortic valve sclerosis without stenosis and mild MR. ECHO ordered and reviewed 09/19 - noted small apical hypokinesis; d/w cardio - it is consistent w/ his h/o previous infarct and ischemic CM. No further eval needed as patient reports activity level at his baseline/and no s/s of acs/angina. Pt is at moderate risk for procedures given his comorbidities. Ascites and Cirrhosis: noted in Renal US at admission, appears new. Patient's last dose of Eliquis 09/18 in the morning. Diagnostic and therapeutic paracentesis [needs off of Eliquis for 3 days and heparin drip held 8 hours prior paracentesis]. Currently on heparin drip, needs to be held prior to paracentesis accordingly. Liver ultrasound: Cirrhotic liver with small amount of perihepatic ascites. Cholecystectomy. Portal vein ultrasound: No evidence of portal vein thrombosis GI consulted, appreciate their input. Paracentesis planned for tmrw (09/21) Tylenol less than 2 g/day, avoid other hepatotoxic's. Other chronic medical conditions: T2DM:A1c last July 16.4, sliding scale while inpatient. Hold p.o. meds. Will need close follow-up with PCP for ongoing management of diabetes, will likely need up titration of his insulin dose upon discharge. 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 Maintain follow-up with ID. GERD:Recommended to be on lifelong PPI, however he stopped this and feels his symptoms have improved slightly. CAD s/p CABG x3, ischemic CM, PAF, RBBB, HTN, HLD:Continue home aspirin/statin/coenzyme 10/metoprolol. Losartan and Lasix held. Recent echosee above. CVA:Continue with ASA/statin. Eliquis on hold/on heparin drip until paracentesis, then can put back on Eliquis if no further procedures after suspected Disposition:PT/OT, CM to assist with DC planning. Likely in next few days PCP: Dr. Meadows Code Status: Full code VTE Prophylaxis: On Hep Drip. Admission and Anticipated Discharge Date Admission Date: September 18, 2022 Subjective Patient seen in follow-up of DELIA, right hydronephrosis,ureter stone, ascites and likely new liver cirrhosis. Plan for ureter stent placement today by urology, plan for paracentesis tomorrow. Pt currently on IV heparin. Pt seen in PACU after ureter stent placement. Chakraborty placed after procedure, gross hematuria noted. IV heparin on hold. Pt seen at the bedside w/ Dr. Sutton (nephrology) and discussed in detail. Patient was lying in bed, on room air, NAD. Denies fever, chills, denies any chest pain or shortness of breath. Reports RLQ abd. pain in the morning (prior o procedure). Review of Systems Review of Systems: All systems reviewed & are unremarkable except as noted in Subjective Physical Exam Physical Exam: GENERAL: Alert and oriented x3. NAD, on RA. HEENT:NC/AT. Pupils equal, round and reactive to light. Oral mucosa moist. NECK: No JVD, no neck masses. HEART: S1 and S2 heard. Regular rate and rhythm. +systolic murmur RESPIRATORY: Normal AP diameter. No accessory muscle use. No wheezing, no crackles. ABDOMEN: Soft, bowel sounds present, nontender, no distention. NEURO: awake, alert oriented, able to answer simple questions appropriately. No facial droop. Speech is clear. Obeys simple commands. Moves extremities. EXTREMITIES: No edema, no erythema seen. Results & Data Results & Data Vital Signs (Past 12 Hours) Vital Signs Temp Pulse Pulse Resp BP Pulse Ox O2 Del Method 09/20/22 08:12 37.1 C 86 16 124/72 96 Room Air 09/20/22 04:15 37.4 C 86 20 123/70 96 Room Air 09/19/22 23:59 85 09/19/22 23:49 37.1 C 91 H 20 129/73 96 Room Air Laboratory Results 09/20/22 09/20/22 09/20/22 Range/Units 07:57 04:09 04:09 WBC (4.8-10.8) K/ul RBC (4.70-6.10) M/uL Hgb (14.0-18.0) g/dl Hct (42.0-52.0) % MCV (80.0-100.0) fL MCH (25.0-34.0) pg MCHC (32.0-36.0) g/dL RDW Std Deviation (36.4-46.3) fL RDW Coeff of Lencho (11.5-14.5) % Plt Count (130-400) K/uL MPV (9.4-12.4) fL APTT 78.9 H* (21.0-31.0) Seconds PTT Ratio 2.9 Sodium 132 L (136-145) mmol/L Potassium 4.9 (3.5-5.1) mmol/L Chloride 107 (98-107) mmol/L Carbon Dioxide 18 L (21-32) mmol/L Anion Gap 7 (3-11) BUN 26 H (6-23) mg/dl Creatinine 2.43 H (0.6-1.4) mg/dl Est Cr Clr Drug Dosing 27.1 ml/min Est GFR ( Amer) 29.0 ml/min Est GFR (Non-Af Amer) 25.1 ml/min BUN/Creatinine Ratio 10.7 (10-20) Glucose 131 H (70-99(Fasting)) mg/dl POC Glucose 130 H (70-99) mg/dl Calcium 8.7 (8.5-10.1) mg/dl Phosphorus 2.7 (2.5-4.9) mg/dl Magnesium 1.7 (1.7-2.4) mg/dl 09/20/22 09/19/22 09/19/22 Range/Units 04:09 20:32 20:23 WBC 4.56 L (4.8-10.8) K/ul RBC 3.83 L (4.70-6.10) M/uL Hgb 10.9 L (14.0-18.0) g/dl Hct 33.5 L (42.0-52.0) % MCV 87.5 (80.0-100.0) fL MCH 28.5 (25.0-34.0) pg MCHC 32.5 (32.0-36.0) g/dL RDW Std Deviation 44.1 (36.4-46.3) fL RDW Coeff of Lencho 13.7 (11.5-14.5) % Plt Count 93 L (130-400) K/uL MPV 11.2 (9.4-12.4) fL APTT 83.4 H* (21.0-31.0) Seconds PTT Ratio 3.0 Sodium (136-145) mmol/L Potassium (3.5-5.1) mmol/L Chloride (98-107) mmol/L Carbon Dioxide (21-32) mmol/L Anion Gap (3-11) BUN (6-23) mg/dl Creatinine (0.6-1.4) mg/dl Est Cr Clr Drug Dosing ml/min Est GFR ( Amer) ml/min Est GFR (Non-Af Amer) ml/min BUN/Creatinine Ratio (10-20) Glucose (70-99(Fasting)) mg/dl POC Glucose 147 H (70-99) mg/dl Calcium (8.5-10.1) mg/dl Phosphorus (2.5-4.9) mg/dl Magnesium (1.7-2.4) mg/dl 09/19/22 09/19/22 09/19/22 Range/Units 16:19 12:58 11:36 WBC (4.8-10.8) K/ul RBC (4.70-6.10) M/uL Hgb (14.0-18.0) g/dl Hct (42.0-52.0) % MCV (80.0-100.0) fL MCH (25.0-34.0) pg MCHC (32.0-36.0) g/dL RDW Std Deviation (36.4-46.3) fL RDW Coeff of Lencho (11.5-14.5) % Plt Count (130-400) K/uL MPV (9.4-12.4) fL APTT 82.7 H* (21.0-31.0) Seconds PTT Ratio 3.0 Sodium (136-145) mmol/L Potassium (3.5-5.1) mmol/L Chloride (98-107) mmol/L Carbon Dioxide (21-32) mmol/L Anion Gap (3-11) BUN (6-23) mg/dl Creatinine (0.6-1.4) mg/dl Est Cr Clr Drug Dosing ml/min Est GFR ( Amer) ml/min Est GFR (Non-Af Amer) ml/min BUN/Creatinine Ratio (10-20) Glucose (70-99(Fasting)) mg/dl POC Glucose 150 H 139 H (70-99) mg/dl Calcium (8.5-10.1) mg/dl Phosphorus (2.5-4.9) mg/dl Magnesium (1.7-2.4) mg/dl Medications Administered Current Inpatient Medications Acetaminophen (Acetaminophen 325 Mg Tab) 650 mg PO Q4H PRN PRN Reason: Pain or Fever Stop: 10/18/22 16:30 Last Admin: 09/19/22 21:49 Dose: 650 mg Al Hydrox/Mg Hydrox/Simethicone (Aluminum/Magnesium Susp 30 Ml Udc) 15 ml PO Q4H PRN PRN Reason: Dyspepsia Stop: 10/18/22 16:30 Ascorbic Acid (Ascorbic Acid 500 Mg Tab) 500 mg PO DAILY [facility] Stop: 10/19/22 08:59 Last Admin: 09/20/22 09:21 Dose: 500 mg Aspirin (Aspirin 81 Mg Ectab) 81 mg PO [id number]@0900 [facility] Stop: 10/18/22 17:59 Last Admin: 09/19/22 07:52 Dose: 81 mg Atorvastatin Calcium (Atorvastatin 40 Mg Tab) 40 mg PO DAILY [facility] Stop: 10/19/22 08:59 Last Admin: 09/20/22 09:21 Dose: 40 mg Dextrose (Dextrose 50% 50 Ml Syringe) 25 - 50 ml IV UD PRN; Protocol PRN Reason: Hypoglycemia Protocol Stop: 10/18/22 17:35 Dicyclomine HCl (Dicyclomine Hcl 10 Mg Cap) 10 mg PO BID PRN PRN Reason: ABD CRAMPING Stop: 10/18/22 17:22 Docusate Sodium (Docusate Sodium 100 Mg Cap) 100 mg PO BID PRN PRN Reason: Constipation Stop: 10/18/22 17:22 Doxycycline Hyclate (Doxycycline Hyclate 100 Mg Cap) 100 mg PO BID@0700,1900 [facility] Stop: 10/02/22 18:59 Last Admin: 09/20/22 05:39 Dose: 100 mg Ferrous Sulfate (Ferrous Sulfate 325 Mg Tab) 325 mg PO DAILY [facility] Stop: 10/19/22 08:59 Last Admin: 09/20/22 09:20 Dose: 325 mg Glucagon (Glucagon For Inj 1 Mg Vial) 1 mg SQ UD PRN; Protocol PRN Reason: Hypoglycemia Protocol Stop: 10/18/22 17:35 Glucose (Glucose 10 Tab/Tube) 4 - 8 tab PO UD PRN; Protocol PRN Reason: Hypoglycemia Treatment Stop: 10/18/22 17:35 Glucose (Glucose 40% Gel 15 Gm Tube) 15 - 30 gm PO UD PRN; Protocol PRN Reason: Hypoglycemia Protocol Stop: 10/18/22 17:35 Heparin Sodium/Dextrose (Heparin Sodium/Dextrose) 25,000 units in 500 mls @ 17 mls/hr IV .Q24H [facility]; Protocol Stop: 10/18/22 21:44 Last Admin: 09/20/22 07:05 Dose: 850 units/hr, 17 mls/hr Ceftriaxone Sodium 1,000 mg/ (Dextrose) 50 mls @ 100 mls/hr IV PREOP ONE; Protocol Stop: 09/20/22 11:29 Insulin Aspart (Insulin Aspart Per Unit) 0 units SC ACHS [facility] Stop: 10/19/22 11:59 Last Admin: 09/20/22 07:30 Dose: Not Given Insulin Glargine (Lantus Per Unit Charge) 0 units SQ HS [facility]; Protocol Stop: 10/18/22 20:59 Last Admin: 09/19/22 20:39 Dose: 12 units Lactobacillus Acidophilus (Lactobacillus Acidophilus 1 Gm Pack) 1 gm PO DAILY [facility] Stop: 10/19/22 08:59 Last Admin: 09/20/22 09:23 Dose: 1 gm Levothyroxine Sodium (Levothyroxine Sodium 88 Mcg Tablet) 88 mcg PO DAILYBB [facility] Stop: 10/19/22 06:29 Last Admin: 09/20/22 05:39 Dose: 88 mcg Magnesium Hydroxide (Magnesium Hydroxide Susp 30 Ml Udc) 30 ml PO Q12H PRN PRN Reason: Constipation Stop: 10/18/22 16:30 Metoprolol Succinate (Metoprolol Succ 50mg Ext Rel Tab) 100 mg PO BID [facility] Stop: 10/18/22 20:59 Last Admin: 09/20/22 09:20 Dose: 100 mg Miscellaneous (Carbohydrates For Hypoglycemia ) 15 - 30 gm PO UD PRN PRN Reason: Hypoglycemia Protocol Stop: 10/18/22 17:35 Miscellaneous Information (Pharmacy Glycemic Mgmt Consult) 1 each N/A UD PRN PRN Reason: Consult Stop: 10/18/22 17:35 Ondansetron HCl (Ondansetron Inj 2 Mg/Ml 2 Ml Vial) 4 mg IV Q6H PRN PRN Reason: Nausea Stop: 10/18/22 16:30 Oxycodone HCl (Oxycodone Hcl Ir 5 Mg Tab (Immediate Release)) 5 mg PO Q6H PRN PRN Reason: severe pain (scale score 7-10) Last Admin: 09/20/22 10:06 Dose: 5 mg Polyethylene Glycol (Polyethylene (Miralax) 17 Gm Pack) 17 gm PO DAILY PRN PRN Reason: Constipation Stop: 10/18/22 16:30 Tamsulosin HCl (Tamsulosin Hcl 0.4 Mg Cap) 0.4 mg PO DAILY [facility] Stop: 10/19/22 08:59 Last Admin: 09/20/22 09:21 Dose: 0.4 mg Vitamin D (Cholecalciferol 1,000 Units 25 Mcg Tab) 2,000 units PO DAILY [facility] Stop: 10/19/22 08:59 Last Admin: 09/20/22 09:21 Dose: 2,000 units
--- NOTE | 2022-09-20 10:56 | Nephrology Progress Note ---
Date of Service September 20, 2022 Assessment & Plan (1) DELIA (acute kidney injury): Plan: likely on some CKD; baseline creatinine in 2022 appears to be mid to high ones at least. admitted 09/18 with creat 2.7, improved to 2.4 09/19, plateau'd today. not oliguric; no proteinuria or microhemturia. obstructive uropathy to be relieved today; now w/ mild NAGMA -daily bmp -current meds OK -monitor mag daily >for now no IVF (2) Hydronephrosis: Plan: per urology; agree w/ OR today (3) Right nephrolithiasis: Plan: first episode; per urology; metabolic w/u as OP; fluid intake targets not discussed; s/p stent 09/20; heparin gtt on hold given trini hematuria (4) Pancytopenia: Plan: ongoing compared to last month and with now worse leukopenia this admission ? from doxycycilne ?consider reconsulting ID or / and heme eval, possibly as OP -daily cbc > tomorrow w/ diff Admission and Anticipated Discharge Date Admission Date: September 18, 2022 Subjective for cystoscopy/stent today. seen in PACU shortly after procedure; pt awake and oriented. intermittent RLQ pain (none at time of eval); no sob, no n/v Review of Systems Review of Systems: All systems reviewed & are unremarkable except as noted in Subjective Physical Exam Constitutional: well developed, + thin and cooperative; no acute distress Eyes: EOM intact bilaterally ENMT: Ears: no external ear abnormality Nose: no external nose abnormality Mouth: + dry oral mucous membranes Neck: no nuchal rigidity Respiratory: normal respiratory effort Auscultation: + diminished lung sounds and + crackles (R base) Gastrointestinal (Abdomen): Inspection/Auscultation: normal bowel sounds Percussion/Palpation: abdomen soft and + ascites; abdomen nontender and no guarding Musculoskeletal: Extremities: strength 5/5 throughout Skin: no rashes, warm and dry Psychiatric: Orientation: oriented x 3 Genitourinary: morris w/ trini red blood Results & Data Vital Signs (Past 12 Hours) Vital Signs Temp Pulse Pulse Resp BP Pulse Ox O2 Del Method 09/20/22 10:00 Room Air 09/20/22 08:12 37.1 C 86 16 124/72 96 Room Air 09/20/22 04:15 37.4 C 86 20 123/70 96 Room Air 09/19/22 23:59 85 09/19/22 23:49 37.1 C 91 H 20 129/73 96 Room Air Laboratory Results 09/20/22 04:09 09/20/22 04:09
[2022-09-20] MEDS ORDERED: cefTRIAXone SODIUM 1,000 MG in DEXTROSE 5% AD-VAN 50 ML IV ONE (11:00)
[2022-09-20] MEDS ORDERED: ONDANSETRON INJ 2 MG/ML 2 ML VIAL ONE (11:49)
[2022-09-20] MEDS ORDERED: PROPOFOL IV EMULSION 10 MG/ML 20 ML VIAL IV ONE (11:49)
[2022-09-20] MEDS ORDERED: MIDAZOLAM HCL 1 MG/ML 2ML VIAL ONE (11:49)
[2022-09-20] MEDS ORDERED: fentaNYL citrate PF 100 MCG/2 ML VIAL ONE (11:49)
[2022-09-20] MEDS ORDERED: LIDOCAINE 2% MPF LOCAL 5 ML VIAL INFIL ONE (11:49)
--- NOTE | 2022-09-20 12:16 | Anesthesiology Consultation ---
Date of Service September 20, 2022 Assessment & Plan Chart Review Chart Review: Acceptable Risk for Surgery Consults Requested none History Surgery Operation Date: 09/20/22 08:20 Proposed Procedures p Cystoscopy, Retrograde Pyelogram, Right Ureteral Stent Placement - Joey Young MD Height/Weight Height: 5 ft 10 in Weight: 78.8 kg Allergies Allergy/AdvReac Type Severity Reaction Status Date / Time Sulfa (Sulfonamide Allergy Unknown CHILDHOOD Verified 09/18/22 16:07 Antibiotics) ALLERGY--CAN'T REMEMBER tramadol AdvReac Severe SEVERE Verified 09/18/22 16:07 VOMITING omeprazole AdvReac Intermediate PER PT Verified 09/18/22 16:07 "DID THE OPPOSITE, MADE ME WORSE". Medications Home Medications Medication Instructions Recorded Confirmed Last Taken ascorbic acid (vitamin C) 500 mg 500 mg PO DAILY 11/08/21 09/18/22 09/12/22 tablet (Vitamin C) atorvastatin 40 mg tablet 40 mg PO DAILY 11/08/21 09/18/22 09/12/22 cholecalciferol (vitamin D3) 50 50 mcg PO DAILY 11/08/21 09/18/22 09/12/22 mcg (2,000 unit) capsule (Vitamin D3) coQ10 (ubiquinol) 200 mg capsule 200 mg PO DAILY 11/08/21 09/18/22 09/13/22 docusate sodium 100 mg capsule 100 mg PO BID PRN Constipation 11/08/21 09/18/22 09/12/22 dulaglutide 1.5 mg/0.5 mL 3 mg subcut WK 11/08/21 09/18/22 09/06/22 subcutaneous pen injector (Trulicity) ferrous sulfate 325 mg (65 mg 325 mg PO DAILY 11/08/21 09/18/22 09/12/22 iron) tablet insulin glargine 100 unit/mL (3 32 unit subcut HS 11/08/21 09/18/22 09/12/22 mL) subcutaneous pen (Lantus Solostar U-100 Insulin) levothyroxine 88 mcg tablet 88 mcg PO DAILYBB 11/08/21 09/18/22 09/13/22 metoprolol succinate 100 mg 100 mg PO BID 11/08/21 09/18/22 09/12/22 tablet,extended release 24 hr nitroglycerin 0.4 mg sublingual 0.4 mg sublingual DIRECTED PRN 11/08/21 09/18/22 Unknown tablet (Nitrostat) Chest Pain ondansetron HCl 4 mg tablet 4 mg PO Q8H PRN Nausea 11/08/21 09/18/22 Unknown polyethylene glycol 3350 17 17 g PO DAILY PRN Constipation 11/08/21 09/18/22 Unknown gram/dose oral powder (Miralax) Lactobacillus acidophilus 10 10,000 mmu cells PO DAILY 08/24/22 09/18/22 09/12/22 billion cell capsule (Probiotic) dicyclomine 10 mg capsule 10 mg PO BID PRN ABD CRAMPING 08/24/22 09/18/22 Unknown doxycycline hyclate 100 mg capsule 100 mg PO BID #60 caps 08/27/22 09/18/22 09/12/22 furosemide 20 mg tablet 20 mg PO QAM PRN edema/weight 08/27/22 09/18/22 08/24/22 gain/sob #14 tabs oxycodone 5 mg capsule 5 mg PO Q6H PRN severe pain (scale 09/13/22 09/18/22 Unknown score 7-10) #20 caps tamsulosin 0.4 mg capsule (Flomax) 0.4 mg PO DAILY 10 days #10 caps 09/13/22 09/18/22 Unknown aspirin 81 mg tablet,delayed 81 mg PO [id number] 09/18/22 09/18/22 Unknown release apixaban 5 mg tablet (Eliquis) 5 mg PO BID 09/19/22 09/19/22 Unknown Active Medications Generic Name Dose Route Start Last Admin Trade Name Alin PRN Reason Stop Dose Admin Acetaminophen 650 mg 09/18/22 16:31 09/19/22 21:49 Acetaminophen 325 Mg Tab PO 10/18/22 16:30 650 mg Q4H PRN Administration Pain or Fever Ascorbic Acid 500 mg 09/19/22 09:00 09/20/22 09:21 Ascorbic Acid 500 Mg Tab PO 10/19/22 08:59 500 mg DAILY [facility] Administration Aspirin 81 mg 09/18/22 18:00 09/19/22 07:52 Aspirin 81 Mg Ectab PO 10/18/22 17:59 81 mg MoWeFr@0900 [facility] Administration Atorvastatin Calcium 40 mg 09/19/22 09:00 03/15/23 09:21 Atorvastatin 40 Mg Tab PO 10/19/22 08:59 40 mg DAILY [facility] Administration Doxycycline Hyclate 100 mg 09/18/22 19:00 09/20/22 05:39 Doxycycline Hyclate 100 Mg Cap PO 10/02/22 18:59 100 mg BID@0700,1900 [facility] Administration Ferrous Sulfate 325 mg 09/19/22 09:00 09/20/22 09:20 Ferrous Sulfate 325 Mg Tab PO 10/19/22 08:59 325 mg DAILY [facility] Administration Heparin Sodium/Dextrose 25,000 units in 500 mls @ 17 mls/hr 09/18/22 21:45 09/20/22 07:05 Heparin Sodium/Dextrose IV 10/18/22 21:44 850 units/hr .Q24H [facility] 17 mls/hr Administration Protocol 850 UNITS/HR Insulin Aspart 0 units 09/19/22 16:30 09/20/22 07:30 Insulin Aspart Per Unit SC 10/19/22 11:59 Not Given ACHS [facility] Insulin Glargine 0 units 09/18/22 21:00 09/19/22 20:39 Lantus Per Unit Charge SQ 10/18/22 20:59 12 units HS [facility] Administration Protocol Lactobacillus Acidophilus 1 gm 09/19/22 09:00 09/20/22 09:23 Lactobacillus Acidophilus 1 Gm Pack PO 10/19/22 08:59 1 gm DAILY [facility] Administration Levothyroxine Sodium 88 mcg 09/19/22 06:30 09/20/22 05:39 Levothyroxine Sodium 88 Mcg Tablet PO 10/19/22 06:29 88 mcg DAILYBB [facility] Administration Metoprolol Succinate 100 mg 09/18/22 21:00 09/20/22 09:20 Metoprolol Succ 50mg Ext Rel Tab PO 10/18/22 20:59 100 mg BID [facility] Administration Oxycodone HCl 5 mg 09/18/22 17:23 09/20/22 10:06 Oxycodone Hcl Ir 5 Mg Tab (Immediate Release) PO 5 mg Q6H PRN Administration severe pain (scale score 7-10) Tamsulosin HCl 0.4 mg 09/19/22 09:00 09/20/22 09:21 Tamsulosin Hcl 0.4 Mg Cap PO 10/19/22 08:59 0.4 mg DAILY [facility] Administration Vitamin D 2,000 units 09/19/22 09:00 09/20/22 09:21 Cholecalciferol 1,000 Units 25 Mcg Tab PO 10/19/22 08:59 2,000 units DAILY [facility] Administration Past Medical History Medical History Atrial fibrillation post operative CABG 2020 Carotid artery stenosis MVD mRCA 90% w/ diffuse disease; 80% occlusion of pLAD w/ heavily calcified and 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 Chylothorax Diabetes mellitus 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, months of abtx Hyperlipidemia Hypertension Hypothyroid Ischemic cardiomyopathy LVEF 30% post CABG; GRADE I diastolic dysfunction, 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) use of antibiotics 2 gm bid amoxicillin for empyema through November 2022 TIA (transient ischemic attack) in [place] prior to 2020 AND post operatively 2020 [facility] Past Family History Family History Other Heart disease Past Surgical History Surgical History History of coronary artery bypass graft CABG x 3 (PAEZ -LAD; AO-RCA; AO-OM1 w/ graphic SVG on 05/30/2021 Social History Smoking Status: Never smoker Hx Alcohol Use: No Hx Substance Use: No substance use type: does not use Physical Exam Vital Signs Last Vital Signs Temp 36.7 C 09/20/22 11:28 Pulse 65 09/20/22 11:28 Resp 16 09/20/22 11:28 BP 128/70 09/20/22 11:28 Pulse Ox 94 09/20/22 11:28 O2 Del Method Room Air 09/20/22 11:28 Testing Laboratory Results 09/20/22 04:09 09/20/22 04:09 PT 12.0 Seconds (9.0-12.0) 09/18/22 21:57 INR 1.1 (0.9-1.1) 09/18/22 21:57 APTT 78.9 Seconds (21.0-31.0) H* 09/20/22 04:09 Hemoglobin A1c 6.7 % (4.5-5.6) H 09/19/22 04:12 Urine Color Yellow 09/18/22 14:30 Urine Appearance Clear (Clear) 09/18/22 14:30 Urine pH 5.0 (4.5-7.5) 09/18/22 14:30 Ur Specific [place] 1.021 (1.000-1.030) 09/18/22 14:30 Urine Protein Negative (Negative) 09/18/22 14:30 Urine Glucose (UA) Trace (Negative) H 09/18/22 14:30 Urine Ketones Trace (Negative) H 09/18/22 14:30 Urine Nitrite Negative (Negative) 09/18/22 14:30 Ur Leukocyte Esterase Negative (Negative) 09/18/22 14:30 09/20/22 09/20/22 11:49 07:57 POC Glucose 132 H 130 H
[2022-09-20] MEDS ORDERED: ATROPINE SULFATE 0.1 MG/ML 10ML SYR IV PRN (12:38)
[2022-09-20] MEDS ORDERED: ePHEDrine sulfate 50 MG/ML AMP IV PRN (12:38)
[2022-09-20] MEDS ORDERED: Nursing to Pharmacy Communication SCH (12:45)
[2022-09-20] MEDS ORDERED: PHENYLEPHRINE 100MCG/ML 5ML SYR ONE (12:48)
[2022-09-20] MEDS ORDERED: DIATRIZOATE MEGLUMINE 30% 100ML VIAL INSTIL ONE (13:01)
--- NOTE | 2022-09-20 13:08 | Post Operative Brief Note ---
PG Immediate Post Op with CF Date of Surgery September 20, 2022 Pre & Post Diagnosis Right ureteral calculus Operation Date: 09/20/22 08:20 <No data on this case meets the specified criteria> Right ureteral calculus I identified the patient and participated in the time-out.: Yes Procedure Cystoscopy, right retrograde pyelogram with radiographic interpretation, right ureteral stent placement Operation Date: 09/20/22 08:20 <No data on this case meets the specified criteria> Surgeon Joey Young MD Hed[place] Review Nurse None Estimated Blood Loss 0 Findings See Below Retrograde showed mild hydronephrosis. Stent in appropriate position. Some debris from stent once placed. Specimens Specimen Description: none collected per surgeon Drains Chakraborty Catheter and Other (6 Thai by 26 cm right ureteral stent) Complications none
--- NOTE | 2022-09-20 13:14 | Operative Report ---
PG Post Operative Report Pre & Post Diagnosis Right ureteral calculus Operation Date: 09/20/22 08:20 <No data on this case meets the specified criteria> Right ureteral calculus I identified the patient and participated in the time-out.: Yes Procedure Cystoscopy, right retrograde pyelogram with radiographic interpretation, right ureteral stent placement Operation Date: 09/20/22 08:20 <No data on this case meets the specified criteria> Surgeon Joey Young MD Production Superintendent None Estimated Blood Loss 0 Findings See Below Mild right hydronephrosis. Stent in appropriate position. There was debris draining from the stent at the end of the case. Specimens None Drains 6 Taiwanese by 26 cm right ureteral stent 16 Taiwanese Chakraborty catheter with 10 cc in balloon Complications none Indications 76-year-old male with multiple medical comorbidities with a 4 mm right proximal ureteral calculus and DELIA did not improve with hydration. Options discussed and patient opted for cystoscopy with right ureteral stent placement. Description of Procedure After informed consent was obtained, the patient was transported operative suite. MAC anesthesia was induced. The patient was placed in dorsolithotomy position prepped and draped in a sterile fashion. They received preoperative ceftriaxone for antibiotic prophylaxis. An appropriate surgical timeout was performed. A 22 Taiwanese rigid scope was inserted per urethra into the bladder. Pollock cysto scopy revealed no stones or lesions. I turned my attention the right ureteral orifice and intubated this with a 5 Taiwanese open-ended catheter. A right retrograde pyelogram was shot which showed mild hydronephrosis. A sensor wire was advanced into the kidney and confirmed fluoroscopically. A 6 Taiwanese by 26 cm right ureteral stent was deployed with a good proximal coil in the renal pelvis and a good distal coil noted in the bladder, confirmed fluoroscopically and under direct visualization, respectively. The scope was removed. 16 Taiwanese Chakraborty catheter was placed with return of pink-tinged urine. Balloon was inflated with 10 cc of sterile water. This concluded the end of the case. All counts were correct at the end of the case. I was present, scrubbed, and actively participated for the entirety of the procedure. I attest to the content of the Intraoperative Record and any orders documented therein. Any exceptions are noted below.
--- NOTE | 2022-09-20 14:34 | Fluoroscopy Report ---
FL retrograde includes kub CLINICAL HISTORY: RT STENT COMPARISON STUDY: CT of the abdomen and pelvis September 13, 2022. KUB September 18, 2022. FLUOROSCOPY TIME: 7 seconds. EXPOSURE DOSE: 2.02 mGy FLUOROSCOPIC IMAGES: 2 FINDINGS: Fluoroscopy was provided during right retrograde pyelogram and right ureteral stent placeme nt. Proximal aspect of the right ureteral stent projects over the inferior aspect of the right renal pelvis. There is mild right hydronephrosis. IMPRESSION: Fluoroscopy provided during right retrograde pyelogram and right ureteral stent insertio n. ACT 112: Negative or not required by law. Electronically signed by: Dominic Beth M.D. 09/20/2022 2:33 PM
[2022-09-20 14:57] LABS: Partial Thromboplastin Ratio 2.5
[2022-09-20 15:14] LABS: Partial Thromboplastin Time 67.5 Seconds (21.0-31.0)
[2022-09-20] MEDS: LANTUS PER UNIT CHARGE SQ SCH (20:13)
[2022-09-20 22:26] LABS: Partial Thromboplastin Ratio 1.3; Partial Thromboplastin Time 37.1 Seconds (21.0-31.0)
[2022-09-21] MEDS: LEVOTHYROXINE SODIUM 88 MCG TABLET PO SCH (05:42)
[2022-09-21] MEDS: DOXYCYCLINE HYCLATE 100 MG CAP PO SCH ×2 (05:42→18:47)
[2022-09-21 06:54] LABS: Basophils # (auto) 0.02 K/uL (0-0.2); Basophils % (auto) 0.4 %; Eosinophils # (auto) 0.03 K/uL (0-0.50); Eosinophils % (auto) 0.6 %; Hematocrit (blood only) 31.3 % (42.0-52.0); Hemoglobin 10.4 g/dl (14.0-18.0); Immature Granulocytes # (auto) 0.02 K/uL (0.01-0.20); Immature Granulocytes % (auto) 0.4 %; Lymphocytes # (auto) 0.54 K/uL (1.2-3.4); Lymphocytes % (auto) 9.9 %; Mean Corpuscular Hemoglobin 28.3 pg (25.0-34.0); Mean Corpuscular Hgb Conc 33.2 g/dL (32.0-36.0); Mean Corpuscular Volume 85.1 fL (80.0-100.0); Mean Platelet Volume 12.5 fL (9.4-12.4); Monocytes # (auto) 0.71 K/uL (0.11-0.59); Neutrophils # (auto) 4.13 K/uL (1.40-6.50); Neutrophils % (auto) 75.7 %; Platelet Count 109 K/uL (130-400); RDW Coefficient of Variation 13.6 % (11.5-14.5); RDW Standard Deviation 42.7 fL (36.4-46.3); Red Blood Count 3.68 M/uL (4.70-6.10); White Blood Count 5.45 K/ul (4.8-10.8)
[2022-09-21 07:23] LABS: Albumin Globulin Ratio 1.4 (0.9-2); Albumin Level 2.9 gm/dl (3.4-5.0); BUN Creatinine Ratio 12.4 (10-20); Bilirubin,Total 0.7 mg/dl (0.2-1.0); Calcium 8.9 mg/dl (8.5-10.1); Creatinine Clr Calc Pharmacy 31.5 ml/min; Echinocytes 1+; Est GFR (African American) 34.8 ml/min; Est GFR (Non-African American) 30.1 ml/min; Globulin 2.1 gm/dl (2.5-4.0); Magnesium 1.6 mg/dl (1.7-2.4); Ovalocytes 1+; Phosphorus 2.8 mg/dl (2.5-4.9); Potassium 4.9 mmol/L (3.5-5.1)
[2022-09-21 07:33] LABS: Partial Thromboplastin Ratio 1.4; Partial Thromboplastin Time 38.6 Seconds (21.0-31.0)
[2022-09-21] MEDS ORDERED: XYLOCAINE 1%/SOD BICARB 20 ML VIAL INFIL ONE (07:34)
[2022-09-21] MEDS: METOPROLOL SUCC 50MG EXT REL TAB PO SCH ×2 (08:06→19:53)
[2022-09-21] MEDS: FERROUS SULFATE 325 MG TAB PO SCH (08:06)
[2022-09-21] MEDS: ASCORBIC ACID 500 MG TAB PO SCH (08:07)
[2022-09-21] MEDS: CHOLECALCIFEROL 1,000 UNITS 25 MCG TAB PO SCH (08:07)
[2022-09-21] MEDS: TAMSULOSIN HCL 0.4 MG CAP PO SCH (08:08)
[2022-09-21] MEDS: ATORVASTATIN 40 MG TAB PO SCH (08:08)
[2022-09-21] MEDS: LACTOBACILLUS ACIDOPHILUS 1 GM PACK PO SCH (08:11)
[2022-09-21] MEDS: INSULIN ASPART PER UNIT SC SCH ×4 (08:16→20:33)
--- NOTE | 2022-09-21 08:21 | Hospitalist Progress Note ---
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: (6) Diabetes mellitus: (7) Hypertension: (8) Hyperlipidemia: (9) Hypothyroid: (10) Carotid artery stenosis: Plan As per previous hospitalist with addendum Plan 76-year-old male with PMH of CAD s/p CABG x3 (PAEZ to LAD, AO to RCA, AO to OM1 05/2021), ischemic CM LVEF 30% postop CABG which has since recovered with most recent echocardiogram in 02/15/2022 revealing preserved EF, PAF postoperative CABG, 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 Of note, he was noting decreasing po intake of food and fluids since about 1 week [employer] due to associated Rt lower belly spasmodic pain but denies flu like illness/fever/nausea/bloating/vomiting/diarrhea. The pain has been spasmodic and intermittent. Sometimes he is able to eat full meal. He didn't have pain or burning while passing urine at presentation. He is being managed for the following: Acute kidney injury over CKD stage III Right Hydronephrosis Patient was referred to emergency due to worsening kidney function detected in an outpatient of while evaluating for right lower quadrant pain. Over the past year, patient had a gradual decrease in renal function. In December 2021 was 1.2, then July 2022 1.6 08/24 -- 2.04, 09/18 -- 2.66. Of note, patient was recently in the ED 09/16 for RLQ pain, CTAP done did show right hydronephrosis and hydroureter with an obstructive stone in the proximal ureter. Patient does complain of intermittent right lower quadrant pain, spasmodic in nature, this has affected his p.o. intake of food and fluids. At times he is able to take his food if he does not have pain. Admitting labs: Blood cell lines around his baseline, creatinine 2.66. ALP 178, rest of the liver function WNL. Admitting imagings: KUB x-ray and renal ultrasound noted. Moderate right hydronephrosis and suspected cirrhosis with ascites and splenomegaly noted. Avoid nephrotoxic's [losartan and Lasix held since last admission] Nephrology consulted, appreciate their input Follow-up labs in AM. Urology consulted - s/p R ureter stent placement (09/20/2022). Chakraborty catheter placed after procedure. hematuria noted after procedure -> IV heparin put on hold. 09/21 - Abdominal pain this AM improved/resolved. Discussed w/ urology. Hematuria expected after stent placement. Urology will cont. to follow. Patient does have history of aortic valve sclerosis and MR, patient does not report any decline in his activity level but he is generally weak, denies any chest pain or shortness of breath or dizziness with his baseline level of activity. Last echo on 02/14/2022 per outpatient chart review: Normal LV chamber size/wall thickness/systolic function with EF of 55 to 60%, grade 2 diastolic dysfunction. Moderate aortic valve sclerosis without stenosis and mild MR. ECHO ordered and reviewed 09/19 - noted small apical hypokinesis; d/w cardio - it is consistent w/ his h/o previous infarct and ischemic CM. No further eval needed as patient reports activity level at his baseline/and no s/s of acs/angina. Pt is at moderate risk for procedures given his comorbidities. Ascites and Cirrhosis: noted in Renal US at admission, appears new. Patient's last dose of Eliquis 09/18 in the morning. Diagnostic and therapeutic paracentesis [needs off of Eliquis for 3 days and heparin drip held 8 hours prior paracentesis]. Currently on heparin drip, needs to be held prior to paracentesis accordingly. Liver ultrasound: Cirrhotic liver with small amount of perihepatic ascites. Cholecystectomy. Portal vein ultrasound: No evidence of portal vein thrombosis GI consulted, appreciate their input. Paracentesis planned for today (09/21) Tylenol less than 2 g/day, avoid other hepatotoxic's. Other chronic medical conditions: T2DM:A1c last July 16.4, sliding scale while inpatient. Hold p.o. meds. Will need close follow-up with PCP for ongoing management of diabetes, will likely need up titration of his insulin dose upon discharge. 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 Maintain follow-up with ID. GERD:Recommended to be on lifelong PPI, however he stopped this and feels his symptoms have improved slightly. CAD s/p CABG x3, ischemic CM, PAF, RBBB, HTN, HLD:Continue home aspirin/statin/coenzyme 10/metoprolol. Losartan and Lasix held. Recent echosee above. CVA:Continue with ASA/statin. Eliquis on hold/on heparin drip until paracentesis, then can put back on Eliquis if no further procedures after suspected Disposition:PT/OT, CM to assist with DC planning. Likely in next few days PCP: Dr. Meadows Code Status: Full code VTE Prophylaxis: Hep Drip now on hold - procedure planned Admission and Anticipated Discharge Date Admission Date: September 18, 2022 Subjective Patient seen in follow-up of DELIA, right hydronephrosis,ureter stone, ascites and likely new liver cirrhosis. Now s/p ureter stent placement yesterday by urology, IV heparin on hold d/t hematuria after procedure. Today pt reports his abdominal pain has much improved/ resolved since the stent was placed. Still no appetite though. Plan for poss. paracentesis today. Pt denies fever, chills, denies any chest pain or shortness of breath. Cr down to 2.09 Review of Systems Review of Systems: All systems reviewed & are unremarkable except as noted in Subjective Physical Exam Physical Exam: GENERAL: Alert and oriented x3. NAD, on RA. HEENT:NC/AT. Pupils equal, round and reactive to light. Oral mucosa moist. NECK: No JVD, no neck masses. HEART: S1 and S2 heard. Regular rate and rhythm. +systolic murmur RESPIRATORY: Normal AP diameter. No accessory muscle use. No wheezing, no crackles. ABDOMEN: Soft, bowel sounds present, nontender, no distention. NEURO: awake, alert oriented, able to answer simple questions appropriately. No facial droop. Speech is clear. Obeys simple commands. Moves extremities. EXTREMITIES: No edema, no erythema seen. Results & Data Results & Data Vital Signs (Past 12 Hours) Vital Signs Temp Pulse Pulse Pulse Resp BP BP 09/21/22 07:35 36.7 C 87 18 119/66 09/21/22 07:19 09/21/22 07:07 87 09/21/22 04:18 37.1 C 89 20 107/64 09/21/22 01:08 93 H 09/21/22 00:42 36.9 C 09/20/22 23:41 37.9 C H 20 107/63 Pulse Ox O2 Del Method 09/21/22 07:35 95 Room Air 09/21/22 07:19 Room Air 09/21/22 07:07 09/21/22 04:18 95 Room Air 09/21/22 01:08 09/21/22 00:42 09/20/22 23:41 94 Room Air Laboratory Results 09/21/22 09/21/22 09/21/22 Range/Units 08:04 05:55 05:55 WBC 5.45 (4.8-10.8) K/ul RBC 3.68 L (4.70-6.10) M/uL Hgb 10.4 L (14.0-18.0) g/dl Hct 31.3 L (42.0-52.0) % MCV 85.1 (80.0-100.0) fL MCH 28.3 (25.0-34.0) pg MCHC 33.2 (32.0-36.0) g/dL RDW Std Deviation 42.7 (36.4-46.3) fL RDW Coeff of Lencho 13.6 (11.5-14.5) % Plt Count 109 L (130-400) K/uL MPV 12.5 H (9.4-12.4) fL Immature Gran % (Auto) 0.4 % Neut % (Auto) 75.7 % Lymph % (Auto) 9.9 % Rooks % (Auto) 13.0 % Eos % (Auto) 0.6 % Baso % (Auto) 0.4 % Neut # (Auto) 4.13 (1.40-6.50) K/uL Lymph # (Auto) 0.54 L (1.2-3.4) K/uL Rooks # (Auto) 0.71 H (0.11-0.59) K/uL Eos # (Auto) 0.03 (0-0.50) K/uL Baso # (Auto) 0.02 (0-0.2) K/uL Immature Gran # (Auto) 0.02 (0.01-0.20) K/uL Ovalocytes 1+ Echinocytes 1+ Peripher Smr Path Cons Pending APTT (21.0-31.0) Seconds PTT Ratio Sodium 132 L (136-145) mmol/L Potassium 4.9 (3.5-5.1) mmol/L Chloride 105 (98-107) mmol/L Carbon Dioxide 21 (21-32) mmol/L Anion Gap 6 (3-11) BUN 26 H (6-23) mg/dl Creatinine 2.09 H D (0.6-1.4) mg/dl Est Cr Clr Drug Dosing 31.5 ml/min Est GFR ( Amer) 34.8 ml/min Est GFR (Non-Af Amer) 30.1 ml/min BUN/Creatinine Ratio 12.4 (10-20) Glucose 129 H (70-99(Fasting)) mg/dl POC Glucose 124 H (70-99) mg/dl Calcium 8.9 (8.5-10.1) mg/dl Phosphorus 2.8 (2.5-4.9) mg/dl Magnesium 1.6 L (1.7-2.4) mg/dl Total Bilirubin 0.7 (0.2-1.0) mg/dl AST 11 L (13-39) U/L ALT 8 (7-52) U/L Alkaline Phosphatase 133 H (34-104) U/L Total Protein 5.0 L (6.0-8.3) gm/dl Albumin 2.9 L (3.4-5.0) gm/dl Globulin 2.1 L (2.5-4.0) gm/dl Albumin/Globulin Ratio 1.4 (0.9-2) 09/21/22 09/20/22 09/20/22 Range/Units 05:55 21:48 20:05 WBC (4.8-10.8) K/ul RBC (4.70-6.10) M/uL Hgb (14.0-18.0) g/dl Hct (42.0-52.0) % MCV (80.0-100.0) fL MCH (25.0-34.0) pg MCHC (32.0-36.0) g/dL RDW Std Deviation (36.4-46.3) fL RDW Coeff of Lencho (11.5-14.5) % Plt Count (130-400) K/uL MPV (9.4-12.4) fL Immature Gran % (Auto) % Neut % (Auto) % Lymph % (Auto) % Rooks % (Auto) % Eos % (Auto) % Baso % (Auto) % Neut # (Auto) (1.40-6.50) K/uL Lymph # (Auto) (1.2-3.4) K/uL Rooks # (Auto) (0.11-0.59) K/uL Eos # (Auto) (0-0.50) K/uL Baso # (Auto) (0-0.2) K/uL Immature Gran # (Auto) (0.01-0.20) K/uL Ovalocytes Echinocytes Peripher Smr Path Cons APTT 38.6 H 37.1 H (21.0-31.0) Seconds PTT Ratio 1.4 1.3 Sodium (136-145) mmol/L Potassium (3.5-5.1) mmol/L Chloride (98-107) mmol/L Carbon Dioxide (21-32) mmol/L Anion Gap (3-11) BUN (6-23) mg/dl Creatinine (0.6-1.4) mg/dl Est Cr Clr Drug Dosing ml/min Est GFR ( Amer) ml/min Est GFR (Non-Af Amer) ml/min BUN/Creatinine Ratio (10-20) Glucose (70-99(Fasting)) mg/dl POC Glucose 161 H (70-99) mg/dl Calcium (8.5-10.1) mg/dl Phosphorus (2.5-4.9) mg/dl Magnesium (1.7-2.4) mg/dl Total Bilirubin (0.2-1.0) mg/dl AST (13-39) U/L ALT (7-52) U/L Alkaline Phosphatase (34-104) U/L Total Protein (6.0-8.3) gm/dl Albumin (3.4-5.0) gm/dl Globulin (2.5-4.0) gm/dl Albumin/Globulin Ratio (0.9-2) 09/20/22 09/20/22 09/20/22 Range/Units 16:45 13:20 12:20 WBC (4.8-10.8) K/ul RBC (4.70-6.10) M/uL Hgb (14.0-18.0) g/dl Hct (42.0-52.0) % MCV (80.0-100.0) fL MCH (25.0-34.0) pg MCHC (32.0-36.0) g/dL RDW Std Deviation (36.4-46.3) fL RDW Coeff of Lencho (11.5-14.5) % Plt Count (130-400) K/uL MPV (9.4-12.4) fL Immature Gran % (Auto) % Neut % (Auto) % Lymph % (Auto) % Rooks % (Auto) % Eos % (Auto) % Baso % (Auto) % Neut # (Auto) (1.40-6.50) K/uL Lymph # (Auto) (1.2-3.4) K/uL Rooks # (Auto) (0.11-0.59) K/uL Eos # (Auto) (0-0.50) K/uL Baso # (Auto) (0-0.2) K/uL Immature Gran # (Auto) (0.01-0.20) K/uL Ovalocytes Echinocytes Peripher Smr Path Cons APTT (21.0-31.0) Seconds PTT Ratio Sodium (136-145) mmol/L Potassium (3.5-5.1) mmol/L Chloride (98-107) mmol/L Carbon Dioxide (21-32) mmol/L Anion Gap (3-11) BUN (6-23) mg/dl Creatinine (0.6-1.4) mg/dl Est Cr Clr Drug Dosing ml/min Est GFR ( Amer) ml/min Est GFR (Non-Af Amer) ml/min BUN/Creatinine Ratio (10-20) Glucose (70-99(Fasting)) mg/dl POC Glucose 152 H 155 H 135 H (70-99) mg/dl Calcium (8.5-10.1) mg/dl Phosphorus (2.5-4.9) mg/dl Magnesium (1.7-2.4) mg/dl Total Bilirubin (0.2-1.0) mg/dl AST (13-39) U/L ALT (7-52) U/L Alkaline Phosphatase (34-104) U/L Total Protein (6.0-8.3) gm/dl Albumin (3.4-5.0) gm/dl Globulin (2.5-4.0) gm/dl Albumin/Globulin Ratio (0.9-2) 09/20/22 09/20/22 Range/Units 11:49 11:42 WBC (4.8-10.8) K/ul RBC (4.70-6.10) M/uL Hgb (14.0-18.0) g/dl Hct (42.0-52.0) % MCV (80.0-100.0) fL MCH (25.0-34.0) pg MCHC (32.0-36.0) g/dL RDW Std Deviation (36.4-46.3) fL RDW Coeff of Lencho (11.5-14.5) % Plt Count (130-400) K/uL MPV (9.4-12.4) fL Immature Gran % (Auto) % Neut % (Auto) % Lymph % (Auto) % Rooks % (Auto) % Eos % (Auto) % Baso % (Auto) % Neut # (Auto) (1.40-6.50) K/uL Lymph # (Auto) (1.2-3.4) K/uL Rooks # (Auto) (0.11-0.59) K/uL Eos # (Auto) (0-0.50) K/uL Baso # (Auto) (0-0.2) K/uL Immature Gran # (Auto) (0.01-0.20) K/uL Ovalocytes Echinocytes Peripher Smr Path Cons APTT 67.5 H* (21.0-31.0) Seconds PTT Ratio 2.5 Sodium (136-145) mmol/L Potassium (3.5-5.1) mmol/L Chloride (98-107) mmol/L Carbon Dioxide (21-32) mmol/L Anion Gap (3-11) BUN (6-23) mg/dl Creatinine (0.6-1.4) mg/dl Est Cr Clr Drug Dosing ml/min Est GFR ( Amer) ml/min Est GFR (Non-Af Amer) ml/min BUN/Creatinine Ratio (10-20) Glucose (70-99(Fasting)) mg/dl POC Glucose 132 H (70-99) mg/dl Calcium (8.5-10.1) mg/dl Phosphorus (2.5-4.9) mg/dl Magnesium (1.7-2.4) mg/dl Total Bilirubin (0.2-1.0) mg/dl AST (13-39) U/L ALT (7-52) U/L Alkaline Phosphatase (34-104) U/L Total Protein (6.0-8.3) gm/dl Albumin (3.4-5.0) gm/dl Globulin (2.5-4.0) gm/dl Albumin/Globulin Ratio (0.9-2) Medications Administered Current Inpatient Medications Acetaminophen (Acetaminophen 325 Mg Tab) 650 mg PO Q4H PRN PRN Reason: Pain or Fever Stop: 10/18/22 16:30 Last Admin: 09/19/22 21:49 Dose: 650 mg Al Hydrox/Mg Hydrox/Simethicone (Aluminum/Magnesium Susp 30 Ml Udc) 15 ml PO Q4H PRN PRN Reason: Dyspepsia Stop: 10/18/22 16:30 Ascorbic Acid (Ascorbic Acid 500 Mg Tab) 500 mg PO DAILY [facility] Stop: 10/19/22 08:59 Last Admin: 09/21/22 08:07 Dose: 500 mg Aspirin (Aspirin 81 Mg Ectab) 81 mg PO MoWeFr@0900 [facility] Stop: 10/18/22 17:59 Last Admin: 09/19/22 07:52 Dose: 81 mg Atorvastatin Calcium (Atorvastatin 40 Mg Tab) 40 mg PO DAILY [facility] Stop: 10/19/22 08:59 Last Admin: 09/21/22 08:08 Dose: 40 mg Dextrose (Dextrose 50% 50 Ml Syringe) 25 - 50 ml IV UD PRN; Protocol PRN Reason: Hypoglycemia Protocol Stop: 10/18/22 17:35 Dicyclomine HCl (Dicyclomine Hcl 10 Mg Cap) 10 mg PO BID PRN PRN Reason: ABD CRAMPING Stop: 10/18/22 17:22 Docusate Sodium (Docusate Sodium 100 Mg Cap) 100 mg PO BID PRN PRN Reason: Constipation Stop: 10/18/22 17:22 Doxycycline Hyclate (Doxycycline Hyclate 100 Mg Cap) 100 mg PO BID@0700,1900 [facility] Stop: 10/02/22 18:59 Last Admin: 09/21/22 05:42 Dose: 100 mg Ferrous Sulfate (Ferrous Sulfate 325 Mg Tab) 325 mg PO DAILY [facility] Stop: 10/19/22 08:59 Last Admin: 09/21/22 08:06 Dose: 325 mg Glucagon (Glucagon For Inj 1 Mg Vial) 1 mg SQ UD PRN; Protocol PRN Reason: Hypoglycemia Protocol Stop: 10/18/22 17:35 Glucose (Glucose 10 Tab/Tube) 4 - 8 tab PO UD PRN; Protocol PRN Reason: Hypoglycemia Treatment Stop: 10/18/22 17:35 Glucose (Glucose 40% Gel 15 Gm Tube) 15 - 30 gm PO UD PRN; Protocol PRN Reason: Hypoglycemia Protocol Stop: 10/18/22 17:35 Insulin Aspart (Insulin Aspart Per Unit) 0 units SC ACHS [facility] Stop: 10/19/22 11:59 Last Admin: 09/21/22 08:16 Dose: Not Given Insulin Glargine (Lantus Per Unit Charge) 0 units SQ HS [facility]; Protocol Stop: 10/18/22 20:59 Last Admin: 09/20/22 20:13 Dose: 12 units Lactobacillus Acidophilus (Lactobacillus Acidophilus 1 Gm Pack) 1 gm PO DAILY [facility] Stop: 10/19/22 08:59 Last Admin: 09/21/22 08:11 Dose: 1 gm Levothyroxine Sodium (Levothyroxine Sodium 88 Mcg Tablet) 88 mcg PO DAILYBB [facility] Stop: 10/19/22 06:29 Last Admin: 09/21/22 05:42 Dose: 88 mcg Magnesium Hydroxide (Magnesium Hydroxide Susp 30 Ml Udc) 30 ml PO Q12H PRN PRN Reason: Constipation Stop: 10/18/22 16:30 Metoprolol Succinate (Metoprolol Succ 50mg Ext Rel Tab) 100 mg PO BID [facility] Stop: 10/18/22 20:59 Last Admin: 09/21/22 08:06 Dose: 100 mg Miscellaneous (Carbohydrates For Hypoglycemia ) 15 - 30 gm PO UD PRN PRN Reason: Hypoglycemia Protocol Stop: 10/18/22 17:35 Miscellaneous Information (Pharmacy Glycemic Mgmt Consult) 1 each N/A UD PRN PRN Reason: Consult Stop: 10/18/22 17:35 Ondansetron HCl (Ondansetron Inj 2 Mg/Ml 2 Ml Vial) 4 mg IV Q6H PRN PRN Reason: Nausea Stop: 10/18/22 16:30 Oxycodone HCl (Oxycodone Hcl Ir 5 Mg Tab (Immediate Release)) 5 mg PO Q6H PRN PRN Reason: severe pain (scale score 7-10) Last Admin: 09/20/22 10:06 Dose: 5 mg Polyethylene Glycol (Polyethylene (Miralax) 17 Gm Pack) 17 gm PO DAILY PRN PRN Reason: Constipation Stop: 10/18/22 16:30 Tamsulosin HCl (Tamsulosin Hcl 0.4 Mg Cap) 0.4 mg PO DAILY [facility] Stop: 10/19/22 08:59 Last Admin: 09/21/22 08:08 Dose: 0.4 mg Vitamin D (Cholecalciferol 1,000 Units 25 Mcg Tab) 2,000 units PO DAILY [facility] Stop: 10/19/22 08:59 Last Admin: 09/21/22 08:07 Dose: 2,000 units
--- NOTE | 2022-09-21 09:11 | Urology Progress Note ---
Date of Service September 21, 2022 Assessment & Plan (1) Calculus of proximal right ureter: Plan: - Pt POD#1 s/p cystoscopy, retrograde pyelogram, and right ureteral stent placement - Doing well, progressing as expected - Afebrile, lab work reviewed - creatinine improved to 2.09, no leukocytosis, hgb 10.4 - Tolerating right ureteral stent without bother - Hematuria is expected in setting of ureteral stent in place, seems to be clearing this am - Heparin was placed on hold by primary team - ok to restart from standpoint - Okay to remove Chakraborty catheter from perspective, monitor for void - Expected clinical course reviewed, all questions answered - Will arrange outpatient follow-up with our service to discuss definitive stone management Admission and Anticipated Discharge Date Admission Date: September 18, 2022 Supervising Physician Co-Signing Physician Notes Discussed patient with TAMIKA. Agree with plan. Subjective Patient seen and examined at bedside this morning. He is awake, alert and resting in bed. No acute issues overnight. He reports right lower quadrant discomfort has resolved. He is tolerating ureteral stent without bother. Chakraborty catheter patent and draining yellow urine with maroon-tinge/sediment. No nausea or vomiting. No fever or chills. Review of Systems Constitutional: as per Subjective / HPI Gastrointestinal: as per Subjective / HPI Genitourinary: + as per Subjective / HPI Physical Exam Constitutional: no acute distress Respiratory: normal respiratory effort; no respiratory distress and no labored breathing Gastrointestinal (Abdomen): Inspection/Auscultation: abdomen normal to inspection; abdomen not distended Musculoskeletal: Head/Neck/Chest: normocephalic and head atraumatic Neurologic: moves all extremities and awake Psychiatric: Orientation: alert and oriented x 3 Genitourinary: Chakraborty patent and draining yellow urine with maroon sediment noted in tubing Results & Data Vital Signs (Past 12 Hours) Vital Signs Temp Pulse Pulse Pulse Resp BP BP 09/21/22 07:35 36.7 C 87 18 119/66 09/21/22 07:19 09/21/22 07:07 87 09/21/22 04:18 37.1 C 89 20 107/64 09/21/22 01:08 93 H 09/21/22 00:42 36.9 C 09/20/22 23:41 37.9 C H 20 107/63 Pulse Ox O2 Del Method 09/21/22 07:35 95 Room Air 09/21/22 07:19 Room Air 09/21/22 07:07 09/21/22 04:18 95 Room Air 09/21/22 01:08 09/21/22 00:42 09/20/22 23:41 94 Room Air PG Care Time/CCT Total # of Minutes Spent Total Time Spent with Patient: Total time spent is greater than 50% in coordination of care (as documented) at patient's floor/unit and/or counseling patient: Coding Level of Care Code 15817 SUB INP/OBS CARE 25MIN Diagnoses Calculus of proximal right ureter N20.1
[2022-09-21] MEDS: APIXABAN 5 MG TABLET PO SCH ×2 (10:54→19:53)
--- NOTE | 2022-09-21 11:02 | Ultrasound Report ---
Limited abdominal ultrasound INDICATION: Paracentesis prescan; ascites FINDINGS: Real-time ultrasound imaging in all 4 quadrants demonstrates a scant amount of ascites flui d, most notably in the right upper and left lower quadrants. Estimated total ascites fluid less than 200 mL. No paracentesis was performed due to the scant amount of fluid. The ordering provider was not ified of the findings. IMPRESSION: Scant ascites for which no paracentesis was performed. Performed, dictated, and signed by Fabián Clayton PA-C; to be co-signed by Dr. Dominic Beth. Electronically signed by: Dominic Beth M.D. 09/21/2022 6:15 PM
--- NOTE | 2022-09-21 12:41 | Nephrology Progress Note ---
Date of Service September 21, 2022 Assessment & Plan (1) DELIA (acute kidney injury): Plan: likely on some CKD; baseline creatinine in 2022 appears to be mid to high ones at least. admitted 09/18 with creat 2.7, improved to 2.4 09/19 and 09/20, down to 2.1 today. not oliguric; no proteinuria or microhemturia. obstructive uropathy relieved w/ stent 09/20; mild NAGMA has resolved -daily bmp -current meds OK -monitor mag daily No indication for IV fluids Reasonable to discontinue Chakraborty catheter since urology is okay with this; bladder scan as needed Reasonable from neph standpoint for d/c today or tomorrow. We will continue to follow while he remains in house Discharge recommendations nephrology: Aim for 60 to 80 ounces of fluid intake daily, most of which should be water CBC with differential and complete metabolic panel and magnesium within 1 week of hospital discharge Hospital discharge appointment with Dr. Breezy Meadows in approximately 2 to 3 weeks No losartan at hospital discharge; no Lasix either Patient to contact PCP and/or nephrology if lower extremity edema or increasing abdominal girth For 1 week prior to upcoming hepatology appointment, daily standing weights and patient to take weight log to appointment Keep infectious disease follow-up appointment Defer to PCP whether hematology evaluation warranted given pancytopenia and weight loss (2) Hydronephrosis: Plan: per urology (3) Right nephrolithiasis: Plan: first episode; per urology; metabolic w/u as OP; fluid intake targets not discussed; s/p stent 09/20; heparin gtt on hold 09/20 and now given trini hematuria -for definitive stone management as outpatient; urology to arrange follow-up for this and stent removal (4) Pancytopenia: Plan: ongoing compared to last month and with now worse leukopenia this admission ? from doxycycilne ?consider reconsulting ID or / and heme eval, possibly as OP -daily cbc > tomorrow w/ diff Admission and Anticipated Discharge Date Admission Date: September 18, 2022 Subjective feeling better; ate better midday meal; no sob; no n/v/d; paracentesis deferred d/t minimal ascites; no edema Review of Systems Review of Systems: All systems reviewed & are unremarkable except as noted in Subjective Physical Exam Constitutional: well developed, + thin, + frail appearing (but less than 1-2 days back) and cooperative; no acute distress Eyes: EOM intact bilaterally ENMT: Ears: no external ear abnormality Nose: no external nose abnormality Mouth: + dry oral mucous membranes Neck: no nuchal rigidity Respiratory: normal respiratory effort Auscultation: + diminished lung sounds and + crackles (R base) Gastrointestinal (Abdomen): Inspection/Auscultation: normal bowel sounds Percussion/Palpation: abdomen soft and + ascites; abdomen nontender and no guarding Musculoskeletal: Extremities: strength 5/5 throughout Skin: no rashes, warm and dry Neurologic: nevarez, fluent speech, no tremor Psychiatric: Orientation: oriented x 3 Results & Data Vital Signs (Past 12 Hours) Vital Signs Temp Pulse Pulse Pulse Resp BP BP 09/21/22 11:38 36.9 C 83 16 114/72 09/21/22 07:35 36.7 C 87 18 119/66 09/21/22 07:19 09/21/22 07:07 87 09/21/22 04:18 37.1 C 89 20 107/64 09/21/22 01:08 93 H 09/21/22 00:42 36.9 C Pulse Ox O2 Del Method 09/21/22 11:38 96 Room Air 09/21/22 07:35 95 Room Air 09/21/22 07:19 Room Air 09/21/22 07:07 09/21/22 04:18 95 Room Air 09/21/22 01:08 09/21/22 00:42 Laboratory Results 09/21/22 05:55 09/21/22 05:55
--- NOTE | 2022-09-21 13:07 | Communication Note ---
Date of Service: September 21, 2022 Spoke w the MARIN who attempted paracentesis. There were only two small areas of ascites, and he did not feel either were in an area that was safe for aspir atation w needle. Paracentesis cancelled. Pt can f/u in the GI clinic for w/u for new cirrhosis w ascites and already has an appt in November w Cici Varner. GI will sign off. Please notify us if new/worsening GI issues.
[2022-09-21] MEDS: LANTUS PER UNIT CHARGE SQ SCH (20:43)
[2022-09-22] MEDS: LEVOTHYROXINE SODIUM 88 MCG TABLET PO SCH (06:01)
[2022-09-22] MEDS: DOXYCYCLINE HYCLATE 100 MG CAP PO SCH (06:01)
[2022-09-22 08:14] LABS: Basophils # (auto) 0.03 K/uL (0-0.2); Basophils % (auto) 0.8 %; Eosinophils # (auto) 0.05 K/uL (0-0.50); Eosinophils % (auto) 1.3 %; Hematocrit (blood only) 32.7 % (42.0-52.0); Hemoglobin 10.5 g/dl (14.0-18.0); Immature Granulocytes # (auto) 0.01 K/uL (0.01-0.20); Immature Granulocytes % (auto) 0.3 %; Lymphocytes # (auto) 0.54 K/uL (1.2-3.4); Lymphocytes % (auto) 14.4 %; Mean Corpuscular Hemoglobin 28.2 pg (25.0-34.0); Mean Corpuscular Hgb Conc 32.1 g/dL (32.0-36.0); Mean Corpuscular Volume 87.7 fL (80.0-100.0); Mean Platelet Volume 12.4 fL (9.4-12.4); Monocytes # (auto) 0.42 K/uL (0.11-0.59); Monocytes % (auto) 11.2 %; Neutrophils # (auto) 2.69 K/uL (1.40-6.50); Platelet Count 104 K/uL (130-400); RDW Coefficient of Variation 13.7 % (11.5-14.5); RDW Standard Deviation 44.5 fL (36.4-46.3); Red Blood Count 3.73 M/uL (4.70-6.10); White Blood Count 3.74 K/ul (4.8-10.8)
[2022-09-22] MEDS: TAMSULOSIN HCL 0.4 MG CAP PO SCH (08:31)
[2022-09-22] MEDS: ASPIRIN 81 MG ECTAB PO SCH (08:31)
[2022-09-22] MEDS: APIXABAN 5 MG TABLET PO SCH (08:31)
[2022-09-22] MEDS: LACTOBACILLUS ACIDOPHILUS 1 GM PACK PO SCH (08:31)
[2022-09-22] MEDS: FERROUS SULFATE 325 MG TAB PO SCH (08:31)
[2022-09-22] MEDS: CHOLECALCIFEROL 1,000 UNITS 25 MCG TAB PO SCH (08:32)
[2022-09-22] MEDS: ASCORBIC ACID 500 MG TAB PO SCH (08:32)
[2022-09-22] MEDS: ATORVASTATIN 40 MG TAB PO SCH (08:32)
[2022-09-22] MEDS: METOPROLOL SUCC 50MG EXT REL TAB PO SCH (08:32)
--- NOTE | 2022-09-22 08:38 | Pharmacy Report ---
Pharmacy Glycemic Short Note 2 - Date of Service September 22, 2022 - Glycemic Short BSG Results (Last 24 hours): 09/21/22 09/21/22 09/21/22 11:33 16:39 20:25 POC Glucose 141 H 169 H 138 H 09/22/22 07:30 POC Glucose 119 H OUTPATIENT ANTIDIABETIC REGIMEN: * Lantus 32 units SQ HS * Trulicity 3mg SQ weekly HbA1C: 6.7% (09/19/22) ASSESSMENT: 09/22/22: * BSGs have been reasonably well-controlled over past 48 hours, ranging 119-169 mg/dL * Receiving ~15-20 units of insulin per day * Patient with resolving DELIA, okay for discharge per nephrology * Anticipate only minor changes today 09/19/22: * Pt is a 76 year old male with a history of type 2 diabetes admitted with right nephrolithiasis and DELIA. Pharmacy consulted to assist with glycemic management while inpatient. * BSGs since admission: 184-275-809ik/dL. Pt received 12 units of basal insulin last night and 2 units of bolus. * Currently NPO, on a heparin drip and receiving PO doxycycline. * Will continue with reduced dose HS Lantus scale pending BSG while NPO. Novolog ACHS moderate stress. PLAN FOR INPATIENT GLYCEMIC CONTROL: * Hold outpatient oral diabetes medications * Basal insulin * Lantus 15-20 units SC HS * Bolus insulin * NovoLog per scale ACHS or Q6hrs while NPO * Goal Range: Low 110 mg/dL - High 140 mg/dL * Correction Factor: 25 mg/dL/unit * Nutritional / Prandial insulin per carb ratio of 1 unit per 8 grams CHO consumed
[2022-09-22 08:40] LABS: Partial Thromboplastin Ratio 1.5; Partial Thromboplastin Time 40.2 Seconds (21.0-31.0)
[2022-09-22 08:41] LABS: BUN Creatinine Ratio 13.4 (10-20); Creatinine Clr Calc Pharmacy 32.6 ml/min; Est GFR (African American) 36.3 ml/min; Est GFR (Non-African American) 31.3 ml/min; Magnesium 1.5 mg/dl (1.7-2.4); Phosphorus 2.9 mg/dl (2.5-4.9); Potassium 4.4 mmol/L (3.5-5.1)
[2022-09-22] MEDS: INSULIN ASPART PER UNIT SC SCH ×2 (08:45→12:59)
--- NOTE | 2022-09-22 10:36 | Hospitalist Progress Note ---
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: (6) Diabetes mellitus: (7) Hypertension: (8) Hyperlipidemia: (9) Hypothyroid: (10) Carotid artery stenosis: Plan As per previous hospitalist with addendum Plan 76-year-old male with PMH of CAD s/p CABG x3 (PAEZ to LAD, AO to RCA, AO to OM1 05/2021), ischemic CM LVEF 30% postop CABG which has since recovered with most recent echocardiogram in 02/15/2022 revealing preserved EF, PAF postoperative CABG, 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 Of note, he was noting decreasing po intake of food and fluids since about 1 week [employer] due to associated Rt lower belly spasmodic pain but denies flu like illness/fever/nausea/bloating/vomiting/diarrhea. The pain has been spasmodic and intermittent. Sometimes he is able to eat full meal. He didn't have pain or burning while passing urine at presentation. He is being managed for the following: Acute kidney injury over CKD stage III Right Hydronephrosis Patient was referred to emergency due to worsening kidney function detected in an outpatient of while evaluating for right lower quadrant pain. Over the past year, patient had a gradual decrease in renal function. In December 2021 was 1.2, then July 2022 1.6 08/24 -- 2.04, 09/18 -- 2.66. Of note, patient was recently in the ED 09/16 for RLQ pain, CTAP done did show right hydronephrosis and hydroureter with an obstructive stone in the proximal ureter. Patient does complain of intermittent right lower quadrant pain, spasmodic in nature, this has affected his p.o. intake of food and fluids. At times he is able to take his food if he does not have pain. Admitting labs: Blood cell lines around his baseline, creatinine 2.66. ALP 178, rest of the liver function WNL. Admitting imagings: KUB x-ray and renal ultrasound noted. Moderate right hydronephrosis and suspected cirrhosis with ascites and splenomegaly noted. Avoid nephrotoxic's [losartan and Lasix held since last admission] Nephrology consulted, appreciate their input DC recs Aim for 60 to 80 ounces of fluid intake daily, most of which should be water CBC with differential and CMP and magnesium within 1 week of hospital discharge Hospital discharge appointment with Dr. Breezy Meadows in approximately 2 to 3 weeks No losartan at hospital discharge; no Lasix either Patient to contact PCP and/or nephrology if lower extremity edema or increasing abdominal girth For 1 week prior to upcoming hepatology appointment, daily standing weights and patient to take weight log to appointment Keep infectious disease follow-up appointment Defer to PCP whether hematology evaluation warranted given pancytopenia and weight loss Urology consulted - s/p R ureter stent placement (09/20/2022) Abdominal pain now resolved. Discussed w/ urology. Hematuria expected after stent placement. Urology will cont. to follow. Patient does have history of aortic valve sclerosis and MR, patient does not report any decline in his activity level but he is generally weak, denies any chest pain or shortness of breath or dizziness with his baseline level of activity. Last echo on 02/14/2022 per outpatient chart review: Normal LV chamber size/wall thickness/systolic function with EF of 55 to 60%, grade 2 diastolic dysfunction. Moderate aortic valve sclerosis without stenosis and mild MR. ECHO ordered and reviewed 09/19 - noted small apical hypokinesis; d/w cardio - it is consistent w/ his h/o previous infarct and ischemic CM. No further eval needed as patient reports activity level at his baseline/and no s/s of acs/angina. Pt is at moderate risk for procedures given his comorbidities. Ascites and Cirrhosis: noted in Renal US at admission, appears new. Patient's last dose of Eliquis 09/18 in the morning. Diagnostic and therapeutic paracentesis [needs off of Eliquis for 3 days and heparin drip held 8 hours prior paracentesis]. Currently on heparin drip, needs to be held prior to paracentesis accordingly. Liver ultrasound: Cirrhotic liver with small amount of perihepatic ascites. Cholecystectomy. Portal vein ultrasound: No evidence of portal vein thrombosis GI consulted, appreciate their input. Paracentesis planned however due to small amount of ascites, not performed. Patient should follow-up with GI as outpatient. Appointment already scheduled in November. Tylenol less than 2 g/day, avoid other hepatotoxic's. Pancytopenia - peripheral smear obtained The peripheral smear is remarkable for a normocytic anemia and thrombocytopenia. The red cells show some increased poikilocytosis. This finding is non-specific but can be seen in myelodysplasia and vitamin deficiencies, among other causes. While I do not favor myelodysplasia as a causes of the patient's cytopenias, I cannot fully exclude it on a peripheral smear review. - follow up w/ PCP, if needed, may refer to hematology Other chronic medical conditions: T2DM:A1c last July 16.4, sliding scale while inpatient. Hold p.o. meds. Will need close follow-up with PCP for ongoing management of diabetes, will likely need up titration of his insulin dose upon discharge. 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 Maintain follow-up with ID. GERD:Recommended to be on lifelong PPI, however he stopped this and feels his symptoms have improved slightly. CAD s/p CABG x3, ischemic CM, PAF, RBBB, HTN, HLD:Continue home aspirin/statin/coenzyme 10/metoprolol. Losartan and Lasix held.Hold on discharge as well. Recent echosee above. CVA:Continue with ASA/statin.Eliquis resumed. Disposition:PT/OT, CM to assist with DC planning. Likely in next few days PCP: Dr. Meadows Code Status: Full code VTE Prophylaxis: Eliquis resumed Admission and Anticipated Discharge Date Admission Date: September 18, 2022 Subjective Patient seen in follow-up of DELIA, right hydronephrosis,ureter stone, ascites and likely new liver cirrhosis. Now s/p ureter stent placement by urology Paracentesis attempted yesterday, however due to small amount of ascites, not performed. Patient is to follow-up with GI as outpatient. Abdominal pain has resolved since the stent was placed. Appetite improved. Pt denies fever, chills, denies any chest pain or shortness of breath. Cr down to 2.02 Review of Systems Review of Systems: All systems reviewed & are unremarkable except as noted in Subjective Physical Exam Physical Exam: GENERAL: Alert and oriented x3. NAD, on RA. HEENT:NC/AT. Pupils equal, round and reactive to light. Oral mucosa moist. NECK: No JVD, no neck masses. HEART: S1 and S2 heard. Regular rate and rhythm. +systolic murmur RESPIRATORY: Normal AP diameter. No accessory muscle use. No wheezing, no crackles. ABDOMEN: Soft, bowel sounds present, nontender, no distention. NEURO: awake, alert oriented, able to answer simple questions appropriately. No facial droop. Speech is clear. Obeys simple commands. Moves extremities. EXTREMITIES: No edema, no erythema seen. Results & Data Results & Data Vital Signs (Past 12 Hours) Vital Signs Temp Pulse Pulse Pulse Resp BP Pulse Ox 09/22/22 09:08 76 09/22/22 09:05 09/22/22 07:47 36.4 C L 72 18 119/71 98 09/22/22 03:09 36.7 C 86 18 114/63 97 09/21/22 23:01 36.8 C 85 16 109/64 95 O2 Del Method 09/22/22 09:08 09/22/22 09:05 Room Air 09/22/22 07:47 Room Air 09/22/22 03:09 Room Air 09/21/22 23:01 Room Air Laboratory Results 09/22/22 09/22/22 09/22/22 Range/Units 07:52 07:52 07:52 WBC 3.74 L (4.8-10.8) K/ul RBC 3.73 L (4.70-6.10) M/uL Hgb 10.5 L (14.0-18.0) g/dl Hct 32.7 L (42.0-52.0) % MCV 87.7 (80.0-100.0) fL MCH 28.2 (25.0-34.0) pg MCHC 32.1 (32.0-36.0) g/dL RDW Std Deviation 44.5 (36.4-46.3) fL RDW Coeff of Lencho 13.7 (11.5-14.5) % Plt Count 104 L (130-400) K/uL MPV 12.4 (9.4-12.4) fL Immature Gran % (Auto) 0.3 % Neut % (Auto) 72.0 % Lymph % (Auto) 14.4 % Clarke % (Auto) 11.2 % Eos % (Auto) 1.3 % Baso % (Auto) 0.8 % Neut # (Auto) 2.69 (1.40-6.50) K/uL Lymph # (Auto) 0.54 L (1.2-3.4) K/uL Clarke # (Auto) 0.42 (0.11-0.59) K/uL Eos # (Auto) 0.05 (0-0.50) K/uL Baso # (Auto) 0.03 (0-0.2) K/uL Immature Gran # (Auto) 0.01 (0.01-0.20) K/uL Peripher Smr Path Cons APTT 40.2 H (21.0-31.0) Seconds PTT Ratio 1.5 Sodium 134 L (136-145) mmol/L Potassium 4.4 (3.5-5.1) mmol/L Chloride 106 (98-107) mmol/L Carbon Dioxide 23 (21-32) mmol/L Anion Gap 5 (3-11) BUN 27 H (6-23) mg/dl Creatinine 2.02 H (0.6-1.4) mg/dl Est Cr Clr Drug Dosing 32.6 ml/min Est GFR ( Amer) 36.3 ml/min Est GFR (Non-Af Amer) 31.3 ml/min BUN/Creatinine Ratio 13.4 (10-20) Glucose 123 H (70-99(Fasting)) mg/dl POC Glucose (70-99) mg/dl Calcium 9.0 (8.5-10.1) mg/dl Phosphorus 2.9 (2.5-4.9) mg/dl Magnesium 1.5 L (1.7-2.4) mg/dl 09/22/22 09/21/22 09/21/22 Range/Units 07:30 20:25 16:39 WBC (4.8-10.8) K/ul RBC (4.70-6.10) M/uL Hgb (14.0-18.0) g/dl Hct (42.0-52.0) % MCV (80.0-100.0) fL MCH (25.0-34.0) pg MCHC (32.0-36.0) g/dL RDW Std Deviation (36.4-46.3) fL RDW Coeff of Lencho (11.5-14.5) % Plt Count (130-400) K/uL MPV (9.4-12.4) fL Immature Gran % (Auto) % Neut % (Auto) % Lymph % (Auto) % Clarke % (Auto) % Eos % (Auto) % Baso % (Auto) % Neut # (Auto) (1.40-6.50) K/uL Lymph # (Auto) (1.2-3.4) K/uL Clarke # (Auto) (0.11-0.59) K/uL Eos # (Auto) (0-0.50) K/uL Baso # (Auto) (0-0.2) K/uL Immature Gran # (Auto) (0.01-0.20) K/uL Peripher Smr Path Cons APTT (21.0-31.0) Seconds PTT Ratio Sodium (136-145) mmol/L Potassium (3.5-5.1) mmol/L Chloride (98-107) mmol/L Carbon Dioxide (21-32) mmol/L Anion Gap (3-11) BUN (6-23) mg/dl Creatinine (0.6-1.4) mg/dl Est Cr Clr Drug Dosing ml/min Est GFR ( Amer) ml/min Est GFR (Non-Af Amer) ml/min BUN/Creatinine Ratio (10-20) Glucose (70-99(Fasting)) mg/dl POC Glucose 119 H 138 H 169 H (70-99) mg/dl Calcium (8.5-10.1) mg/dl Phosphorus (2.5-4.9) mg/dl Magnesium (1.7-2.4) mg/dl 09/21/22 09/21/22 Range/Units 11:33 05:55 WBC (4.8-10.8) K/ul RBC (4.70-6.10) M/uL Hgb (14.0-18.0) g/dl Hct (42.0-52.0) % MCV (80.0-100.0) fL MCH (25.0-34.0) pg MCHC (32.0-36.0) g/dL RDW Std Deviation (36.4-46.3) fL RDW Coeff of Lencho (11.5-14.5) % Plt Count (130-400) K/uL MPV (9.4-12.4) fL Immature Gran % (Auto) % Neut % (Auto) % Lymph % (Auto) % Clarke % (Auto) % Eos % (Auto) % Baso % (Auto) % Neut # (Auto) (1.40-6.50) K/uL Lymph # (Auto) (1.2-3.4) K/uL Clarke # (Auto) (0.11-0.59) K/uL Eos # (Auto) (0-0.50) K/uL Baso # (Auto) (0-0.2) K/uL Immature Gran # (Auto) (0.01-0.20) K/uL Peripher Smr Path Cons APTT (21.0-31.0) Seconds PTT Ratio Sodium (136-145) mmol/L Potassium (3.5-5.1) mmol/L Chloride (98-107) mmol/L Carbon Dioxide (21-32) mmol/L Anion Gap (3-11) BUN (6-23) mg/dl Creatinine (0.6-1.4) mg/dl Est Cr Clr Drug Dosing ml/min Est GFR ( Amer) ml/min Est GFR (Non-Af Amer) ml/min BUN/Creatinine Ratio (10-20) Glucose (70-99(Fasting)) mg/dl POC Glucose 141 H (70-99) mg/dl Calcium (8.5-10.1) mg/dl Phosphorus (2.5-4.9) mg/dl Magnesium (1.7-2.4) mg/dl Medications Administered Current Inpatient Medications Acetaminophen (Acetaminophen 325 Mg Tab) 650 mg PO Q4H PRN PRN Reason: Pain or Fever Stop: 10/18/22 16:30 Last Admin: 09/19/22 21:49 Dose: 650 mg Al Hydrox/Mg Hydrox/Simethicone (Aluminum/Magnesium Susp 30 Ml Udc) 15 ml PO Q4H PRN PRN Reason: Dyspepsia Stop: 10/18/22 16:30 Apixaban (Apixaban 5 Mg Tablet) 5 mg PO BID [facility] Stop: 10/21/22 10:44 Last Admin: 09/22/22 08:31 Dose: 5 mg Ascorbic Acid (Ascorbic Acid 500 Mg Tab) 500 mg PO DAILY [facility] Stop: 10/19/22 08:59 Last Admin: 09/22/22 08:32 Dose: 500 mg Aspirin (Aspirin 81 Mg Ectab) 81 mg PO MoWeFr@0900 [facility] Stop: 10/18/22 17:59 Last Admin: 09/22/22 08:31 Dose: 81 mg Atorvastatin Calcium (Atorvastatin 40 Mg Tab) 40 mg PO DAILY [facility] Stop: 10/19/22 08:59 Last Admin: 09/22/22 08:32 Dose: 40 mg Dextrose (Dextrose 50% 50 Ml Syringe) 25 - 50 ml IV UD PRN; Protocol PRN Reason: Hypoglycemia Protocol Stop: 10/18/22 17:35 Dicyclomine HCl (Dicyclomine Hcl 10 Mg Cap) 10 mg PO BID PRN PRN Reason: ABD CRAMPING Stop: 10/18/22 17:22 Docusate Sodium (Docusate Sodium 100 Mg Cap) 100 mg PO BID PRN PRN Reason: Constipation Stop: 10/18/22 17:22 Doxycycline Hyclate (Doxycycline Hyclate 100 Mg Cap) 100 mg PO BID@0700,1900 [facility] Stop: 10/02/22 18:59 Last Admin: 09/22/22 06:01 Dose: 100 mg Ferrous Sulfate (Ferrous Sulfate 325 Mg Tab) 325 mg PO DAILY [facility] Stop: 10/19/22 08:59 Last Admin: 09/22/22 08:31 Dose: 325 mg Glucagon (Glucagon For Inj 1 Mg Vial) 1 mg SQ UD PRN; Protocol PRN Reason: Hypoglycemia Protocol Stop: 10/18/22 17:35 Glucose (Glucose 10 Tab/Tube) 4 - 8 tab PO UD PRN; Protocol PRN Reason: Hypoglycemia Treatment Stop: 10/18/22 17:35 Glucose (Glucose 40% Gel 15 Gm Tube) 15 - 30 gm PO UD PRN; Protocol PRN Reason: Hypoglycemia Protocol Stop: 10/18/22 17:35 Magnesium Sulfate/Dextrose (Magnesium Sulfate / D5w) 1 gm in 100 mls @ 50 mls/hr IV Q2H [facility] Stop: 09/22/22 14:14 Insulin Aspart (Insulin Aspart Per Unit) 0 units SC ACHS [facility] Stop: 10/19/22 11:59 Last Admin: 09/22/22 08:45 Dose: 4 units Insulin Glargine (Lantus Per Unit Charge) 15 units SQ HS [facility] Stop: 10/18/22 20:59 Lactobacillus Acidophilus (Lactobacillus Acidophilus 1 Gm Pack) 1 gm PO DAILY [facility] Stop: 10/19/22 08:59 Last Admin: 09/22/22 08:31 Dose: 1 gm Levothyroxine Sodium (Levothyroxine Sodium 88 Mcg Tablet) 88 mcg PO DAILYBB [facility] Stop: 10/19/22 06:29 Last Admin: 09/22/22 06:01 Dose: 88 mcg Magnesium Hydroxide (Magnesium Hydroxide Susp 30 Ml Udc) 30 ml PO Q12H PRN PRN Reason: Constipation Stop: 10/18/22 16:30 Metoprolol Succinate (Metoprolol Succ 50mg Ext Rel Tab) 100 mg PO BID [facility] Stop: 10/18/22 20:59 Last Admin: 09/22/22 08:32 Dose: 100 mg Miscellaneous (Carbohydrates For Hypoglycemia ) 15 - 30 gm PO UD PRN PRN Reason: Hypoglycemia Protocol Stop: 10/18/22 17:35 Miscellaneous Information (Pharmacy Glycemic Mgmt Consult) 1 each N/A UD PRN PRN Reason: Consult Stop: 10/18/22 17:35 Ondansetron HCl (Ondansetron Inj 2 Mg/Ml 2 Ml Vial) 4 mg IV Q6H PRN PRN Reason: Nausea Stop: 10/18/22 16:30 Oxycodone HCl (Oxycodone Hcl Ir 5 Mg Tab (Immediate Release)) 5 mg PO Q6H PRN PRN Reason: severe pain (scale score 7-10) Last Admin: 09/20/22 10:06 Dose: 5 mg Polyethylene Glycol (Polyethylene (Miralax) 17 Gm Pack) 17 gm PO DAILY PRN PRN Reason: Constipation Stop: 10/18/22 16:30 Tamsulosin HCl (Tamsulosin Hcl 0.4 Mg Cap) 0.4 mg PO DAILY [facility] Stop: 10/19/22 08:59 Last Admin: 09/22/22 08:31 Dose: 0.4 mg Vitamin D (Cholecalciferol 1,000 Units 25 Mcg Tab) 2,000 units PO DAILY [facility] Stop: 10/19/22 08:59 Last Admin: 09/22/22 08:32 Dose: 2,000 units
[2022-09-22] MEDS: MAGNESIUM SULFATE / D5W 1 GM/100 ML BAG IV SCH ×2 (10:46→12:34)
--- NOTE | 2022-09-22 12:20 | Discharge Summary ---
Date of Service September 22, 2022 Admission HPI Per Admitting Provider Mr. Francois is a complex 76-year-old male that presented to the ED as per recommendation by his PCP due to worsening creatinine function in addition to persistent right lower quadrant abdominal pain. Significant past medical history includes CAD status post CABG x3(PAEZ to LAD, AO to RCA, AO to OM1 in May 2021), ischemic cardiomyopathy LVEF 30% postop CABG which is since recovered with most recent echocardiogram 02/2022 revealing preserved EF, PAF postop CABG, history of multiple small CVAs including left anterior frontal lobe and left posterior temporal lobe following surgery, RBBB, HTN, HLD, diabetes mellitus type 2, hypothyroidism, mild aortic sclerosis, mild mitral regurgitation, history of chronic use of Xarelto in the setting of a possible CVA, thoracic duct embolization 09/06/2021 under the care of Dr. 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 He underwent GI dilatation in 06/29. Since December/2021 his creatinine function has continued to decline. 12/2021 1.2 [place]: 07/2022 1.6; 08/24/22 2.04; today 2.66. Patient has been followed by nephrology and cardiology on recent admissions. Today a renal ultrasound was per formed; revealing moderate right hydronephrosis. Right ureteral calculus likely sonographically occult. No left hydronephrosis. Additionally noted to have suspected cirrhosis and ascites. Will have Nephro and Urology see patient for recommendations. Patient denies headache, dizziness, shortness of breath, recent falls, visual or auditory changes, recent trauma, bowel or bladder changes, new rashes, vomiting, nausea, diarrhea. Patient will be admitted for further evaluation and management. Please see A/P for further details. Admission Exam Per Admitting Provider GENERAL: Alert and oriented x3. NAD, on RA. HEENT: No pallor, no icterus. Pupils equal, round and reactive to light. Oral mucosa moist. NECK: No JVD, no neck masses. HEART: S1 and S2 heard. Regular rate and rhythm. systolic murmur at aortic and pulmonic area, no gallop. RESPIRATORY SYSTEM: Normal AP diameter. No accessory muscle use. No wheezing, no crackles. ABDOMEN: Soft, bowel sounds present, nontender, no distention. CENTRAL NERVOUS SYSTEM: No facial droop. Speech is clear. Obeys simple commands. Moves extremities. EXTREMITIES: No edema, no erythema seen. No CVA tenderness Principal Diagnosis DELIA Obstructive uropathy, status post ureter stent placement ascites, new cirrhosis Discharge Exam GENERAL: Alert and oriented x3. NAD, on RA. HEENT:NC/AT. Pupils equal, round and reactive to light. Oral mucosa moist. NECK: No JVD, no neck masses. HEART: S1 and S2 heard. Regular rate and rhythm. +systolic murmur RESPIRATORY: Normal AP diameter. No accessory muscle use. No wheezing, no crackles. ABDOMEN: Soft, bowel sounds present, nontender, no distention. NEURO: awake, alert oriented, able to answer simple questions appropriately. No facial droop. Speech is clear. Obeys simple commands. Moves extremities. EXTREMITIES: No edema, no erythema seen. Discharge Data Allergies Allergy/AdvReac Type Severity Reaction Status Date / Time Sulfa (Sulfonamide Allergy Unknown CHILDHOOD Verified 09/18/22 16:07 Antibiotics) ALLERGY--CAN'T REMEMBER tramadol AdvReac Severe SEVERE Verified 09/18/22 16:07 VOMITING omeprazole AdvReac Intermediate PER PT Verified 09/18/22 16:07 "DID THE OPPOSITE, MADE ME WORSE". Consultations 09/18/22 16:14 ED Decision to Admit Stat 09/18/22 16:31 Consult Nephrology Routine 09/18/22 17:18 Consult Urology Routine 09/18/22 17:26 Consult Gastroenterology Stat Procedures Performed Operation Date: 09/20/22 08:20 Actual Procedures p Cystoscopy, Retrograde Pyelogram, Right Ureteral Stent Placement(Right) - Joey Young MD Ordered Studies 09/18/22 14:12 US Renal Bladder [US renal/blad retro comp] Stat 1. Moderate right hydronephrosis. Right ureteral calculus likely sonographically occult. No left hydronephrosis. 2. Suspected cirrhosis. Ascites and splenomegaly. 09/19/22 09:46 US duplex portal hepatic veins Routine IMPRESSION: No evidence for portal vein thrombosis. US liver Routine IMPRESSION: 1. Cirrhotic liver with a small amount of perihepatic ascites, unchanged. 2. Stable mild right hydronephrosis 3. Cholecystectomy. 09/20/22 14:30 FL retrograde includes kub Routine 09/21/22 08:00 US abdomen ltd ascites Routine IMPRESSION: Scant ascites for which no paracentesis was performed. Hospital Course (1) Right nephrolithiasis: (2) Right lower quadrant abdominal pain: (3) CAD (coronary artery disease): (4) Atrial fibrillation: (5) FPC (current) use of antibiotics: (6) Diabetes mellitus: (7) Hypertension: (8) Hyperlipidemia: (9) Hypothyroid: (10) Carotid artery stenosis: Plan As per previous hospitalist with addendum Plan 76-year-old male with PMH of CAD s/p CABG x3 (PAEZ to LAD, AO to RCA, AO to OM1 05/2021), ischemic CM LVEF 30% postop CABG which has since recovered with most recent echocardiogram in 02/15/2022 revealing preserved EF, PAF postoperative CABG, 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 Of note, he was noting decreasing po intake of food and fluids since about 1 week [employer] due to associated Rt lower belly spasmodic pain but denies flu like illness/fever /nausea/bloating/vomiting/diarrhea. The pain has been spasmodic and intermittent. Sometimes he is able to eat full meal. He didn't have pain or burning while passing urine at presentation. He is being managed for the following: Acute kidney injury over CKD stage III Right Hydronephrosis Patient was referred to emergency due to worsening kidney function detected in an outpatient of while evaluating for right lower quadrant pain. Over the past year, patient had a gradual decrease in renal function. In December 2021 was 1.2, then July 2022 1.6 08/24 -- 2.04, 09/18 -- 2.66. Of note, patient was recently in the ED 09/16 for RLQ pain, CTAP done did show right hydronephrosis and hydroureter with an obstructive stone in the proximal ureter. Patient does complain of intermittent right lower quadrant pain, spasmodic in nature, this has affected his p.o. intake of food and fluids. At times he is able to take his food if he does not have pain. Admitting labs: Blood cell lines around his baseline, creatinine 2.66. ALP 178, rest of the liver function WNL. Admitting imagings: KUB x-ray and renal ultrasound noted. Moderate right hydronephrosis and suspected cirrhosis with ascites and splenomegaly noted. Avoid nephrotoxic's [losartan and Lasix held since last admission] Nephrology consulted, appreciate their input DC recs Aim for 60 to 80 ounces of fluid intake daily, most of which should be water CBC with differential and CMP and magnesium within 1 week of hospital discharge Hospital discharge appointment with Dr. Breezy Meadows in approximately 2 to 3 weeks No losartan at hospital discharge; no Lasix either Patient to contact PCP and/or nephrology if lower extremity edema or increasing abdominal girth For 1 week prior to upcoming hepatology appointment, daily standing weights and patient to take weight log to appointment Keep infectious disease follow-up appointment Defer to PCP whether hematology evaluation warranted given pancytopenia and weight loss Urology consulted - s/p R ureter stent placement (09/20/2022) Abdominal pain now resolved. Discussed w/ urology. Hematuria expected after sten t placement. Urology will cont. to follow. Patient does have history of aortic valve sclerosis and MR, patient does not report any decline in his activity level but he is generally weak, denies any chest pain or shortness of breath or dizziness with his baseline level of activity. Last echo on 02/14/2022 per outpatient chart review: Normal LV chamber size/wall thickness/systolic function with EF of 55 to 60%, grade 2 diastolic dysfunction. Moderate aortic valve sclerosis without stenosis and mild MR. ECHO ordered and reviewed 09/19 - noted small apical hypokinesis; d/w cardio - it is consistent w/ his h/o previous infarct and ischemic CM. No further eval needed as patient reports activity level at his baseline/and no s/s of acs/angina. Pt is at moderate risk for procedures given his comorbidities. Ascites and Cirrhosis: noted in Renal US at admission, appears new. Patient's last dose of Eliquis 09/18 in the morning. Diagnostic and therapeutic paracentesis [needs off of Eliquis for 3 days and heparin drip held 8 hours prior paracentesis]. Currently on heparin drip, needs to be held prior to paracentesis accordingly. Liver ultrasound: Cirrhotic liver with small amount of perihepatic ascites. Cholecystectomy. Portal vein ultrasound: No evidence of portal vein thrombosis GI consulted, appreciate their input. Paracentesis planned however due to small amount of ascites, not performed. Patient should follow-up with GI as outpatient. Appointment already scheduled in November. Tylenol less than 2 g/day, avoid other hepatotoxic's. Pancytopenia - peripheral smear obtained The peripheral smear is remarkable for a normocytic anemia and thrombocytopenia. The red cells show some increased poikilocytosis. This finding is non-specific but can be seen in myelodysplasia and vitamin deficiencies, among other causes. While I do not favor myelodysplasia as a causes of the patient's cytopenias, I cannot fully exclude it on a peripheral smear review. - follow up w/ PCP, if needed, may refer to hematology Other chronic medical conditions: T2DM:A1c last July 16.4, sliding scale while inpatient. Hold p.o. meds. Will need close follow-up with PCP for ongoing management of diabetes, will likely need up titration of his insulin dose upon discharge. 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 Maintain follow-up with ID. GERD:Recommended to be on lifelong PPI, however he stopped this and feels his symptoms have improved slightly. CAD s/p CABG x3, ischemic CM, PAF, RBBB, HTN, HLD:Continue home aspirin/statin/coenzyme 10/metoprolol. Losartan and Lasix held.Hold on discharge as well. Recent echosee above. CVA:Continue with ASA/statin.Eliquis resumed. Disposition:PT/OT, CM to assist with DC planning. Likely in next few days PCP: Dr. Meadows Code Status: Full code VTE Prophylaxis: Eliquis resumed Total Time Total Time Spent Total Time Spent (In Minutes): 40 Discharge Plan Discharge Items Patient Disposition: Home - Self-Care Reason For Visit: abdominal pain Discharge Diagnosis: DELIA Obstructive uropathy, status post ureter stent placement ascites, new cirrhosis Activity: Per Instructions section Non-emergency contact: Primary Care Provider, Specialist and Admin Dir Call non-emergency contact if: you have any medication questions and your symptoms worsen Follow-up/Referrals: Lia Meadows MD [Primary Care Provider] - (Date & Time 09/28/2022 11:00 AM Provider Lia Meadows MD Department General Internal Medicine [facility] ) Diet: Carb Consistent or DM2 and Heart Healthy Fluids: 1800ml (7 cups) Diet Texture: Easy to Chew Addtl Attending Provider Instructions: Follow-up with your primary care physician, the appointment was scheduled for you for September 28. You will need blood work at that time, CBC, CMP, magnesium level. You will also need to follow-up with nephrology within 2 to 3 weeks. Stop taking losartan or Lasix. Contact the primary care doctor or television picture tube rebuilder if you have any lower extremity edema or increasing abdominal girth. Prior to coming to your Gastroenterology/hepatology appointment, make sure you monitor your weight, and write down your numbers and discuss this weight log with your providers. Follow-up with infectious disease doctor as scheduled. Follow up w/ urology - you will be contacted about the appointment. Pending Studies at Discharge: No Stand-Alone Forms: My Referly, Smoking Cessation Medications and DC Order Prescriptions: Continued dicyclomine 10 mg capsule 10 mg PO BID PRN (Reason: ABD CRAMPING) Probiotic 10 billion cell Capsule 10,000 mmu cells PO DAILY doxycycline hyclate 100 mg Capsule 100 mg PO BID Qty: 60 0RF atorvastatin 40 mg Tablet 40 mg PO DAILY ondansetron HCl 4 mg Tablet 4 mg PO Q8H PRN (Reason: Nausea) metoprolol succinate 100 mg Tablet Extended Release 24 Hr 100 mg PO BID levothyroxine 88 mcg Tablet 88 mcg PO DAILYBB ascorbic acid (vitamin C) [Vitamin C] 500 mg Tablet 500 mg PO DAILY ferrous sulfate 325 mg (65 mg iron) Tablet 325 mg PO DAILY nitroglycerin [Nitrostat] 0.4 mg Tablet, Sublingual 0.4 mg sublingual DIRECTED PRN (Reason: Chest Pain) docusate sodium 100 mg Capsule 100 mg PO BID PRN (Reason: Constipation) polyethylene glycol 3350 [Miralax] 17 gram/dose Powder 17 g PO DAILY PRN (Reason: Constipation) insulin glargine [Lantus Solostar U-100 Insulin] 100 unit/mL (3 mL) Insulin Pen 32 unit SUBCUT HS cholecalciferol (vitamin D3) [Vitamin D3] 50 mcg (2,000 unit) Capsule 50 mcg PO DAILY coQ10 (ubiquinol) 200 mg Capsule 200 mg PO DAILY Trulicity 1.5 mg/0.5 mL Pen Injector 3 mg SUBCUT WK Rx Instructions: TAKES ON SUNDAY EVENING tamsulosin [Flomax] 0.4 mg capsule 0.4 mg PO DAILY 10 Days Qty: 10 0RF oxycodone 5 mg capsule 5 mg PO Q6H PRN (Reason: severe pain (scale score 7-10)) Qty: 20 0RF aspirin 81 mg tablet,delayed release (DR/EC) 81 mg PO 3XWK Rx Instructions: MON, WED, & FRI. Eliquis 5 mg tablet 5 mg PO BID Discontinued furosemide 20 mg tablet 20 mg PO QAM PRN (Reason: edema/weight gain/sob) Qty: 14 0RF Discharge Orders: Discharge Order (Routine); Ordered 09/22/22 Ordered By: Earl Conte/Other Patient Handouts: Managing Type 2 Diabetes Admission Data Admit Date/Time: 09/18/22 16:31 Attending Provider: Earl Mcqueen Admit Provider: Baisl Lew Primary Care Provider: Lia Meadows Other Providers: Basil Lew ; Graham Block ; Nika Cristobal ; Lucas Clayton ; Mishel Austin
--- NOTE | 2022-09-22 15:41 | Nephrology Progress Note ---
Date of Service September 22, 2022 Assessment & Plan (1) DELIA (acute kidney injury): Plan: likely on some CKD; baseline creatinine in 2022 appears to be mid to high ones at least. admitted 09/18 with creat 2.7, improved to 2.4 09/19 and 09/20, down to 2.0 today. not oliguric; no proteinuria or microhemturia. obstructive uropathy relieved w/ stent 09/20; mild NAGMA has resolved -current meds OK Reasonable to discontinue Chakraborty catheter and if able to void reasonable for discharge (looks as though he was able to void without issue) Reasonable from neph standpoint for d/c today. Discharge recommendations nephrology: Aim for 60 to 80 ounces of fluid intake daily, most of which should be water CBC with differential and complete metabolic panel and magnesium within 1 week of hospital discharge Hospital discharge appointment with Dr. Breezy Meadows in approximately 2 to 3 weeks No losartan at hospital discharge; no Lasix either Patient to contact PCP and/or nephrology if lower extremity edema or increasing abdominal girth For 1 week prior to upcoming hepatology appointment, daily standing weights and patient to take weight log to appointment Keep infectious disease follow-up appointment Defer to PCP whether hematology evaluation warranted given pancytopenia and weight loss (2) Hydronephrosis: Plan: per urology (3) Right nephrolithiasis: Plan: first episode; per urology; metabolic w/u as OP; fluid intake targets not discussed; s/p stent 09/20; heparin gtt on hold 09/20 and now given trini hematuria -for definitive stone management as outpatient; urology to arrange follow-up for this and stent removal (4) Pancytopenia: Plan: ongoing compared to last month and with now worse leukopenia this admission ? from doxycycilne ?consider reconsulting ID or / and heme eval, possibly as OP -daily cbc > tomorrow w/ diff Admission and Anticipated Discharge Date Admission Date: September 18, 2022 Subjective Seen and evaluated on a.m. rounds before labs were back. Slept well. No complaints. No worsening abdominal distention; no edema; chronic lower back issues and some challenges navigating but no exertional dyspnea Review of Systems Review of Systems: All systems reviewed & are unremarkable except as noted in Subjective Physical Exam Constitutional: well developed, + thin, + frail appearing (but less than 1-2 days back) and cooperative; no acute distress Eyes: EOM intact bilaterally ENMT: Ears: no external ear abnormality Nose: no external nose abnormality Mouth: + dry oral mucous membranes Neck: no nuchal rigidity Respiratory: normal respiratory effort Auscultation: + diminished lung sounds Cardiovascular: RRR, no murmur, no edema Gastrointestinal (Abdomen): Inspection/Auscultation: normal bowel sounds Percussion/Palpation: abdomen soft and + ascites; abdomen nontender and no guarding Musculoskeletal: Extremities: strength 5/5 throughout Skin: no rashes, warm and dry Neurologic: Moves all extremities, fluent speech, no tremor but some weakness/challenges with exam maneuvers--needs assistance to lean forward forward exam Psychiatric: Orientation: oriented x 3 Results & Data Vital Signs (Past 12 Hours) Vital Signs Temp Pulse Pulse Pulse Resp BP BP 09/22/22 13:37 36.8 C 78 86 18 114/72 112/67 09/22/22 11:09 36.8 C 78 18 112/67 09/22/22 09:08 76 09/22/22 09:05 09/22/22 07:47 36.4 C L 72 18 119/71 Pulse Ox O2 Del Method 09/22/22 13:37 97 09/22/22 11:09 97 Room Air 09/22/22 09:08 09/22/22 09:05 Room Air 09/22/22 07:47 98 Room Air Laboratory Results 09/22/22 07:52 09/22/22 07:52
[2022-09-22] MEDS ORDERED: LANTUS PER UNIT CHARGE SQ SCH ×2 (21:00)
== END 2022-09-22 14:46 | disposition home or self-care (01) | DRG 660 ==
LOC: ED 13:53 → 2N 16:31 → SUATTDRO 16:31 → 2N 17:14
DX: I45.10 Unspecified right bundle-branch block; I12.9 Hypertensive chronic kidney disease with stage 1 through stage 4 chronic kidney disease, or unspecified chronic kidney disease; Z88.2 Allergy status to sulfonamides; J91.8 Pleural effusion in other conditions classified elsewhere; I25.5 Ischemic cardiomyopathy; N18.30 Chronic kidney disease, stage 3 unspecified; E11.22 Type 2 diabetes mellitus with diabetic chronic kidney disease; I65.29 Occlusion and stenosis of unspecified carotid artery; R33.9 Retention of urine, unspecified; D61.818 Other pancytopenia; E78.5 Hyperlipidemia, unspecified; A42.0 Pulmonary actinomycosis; R18.8 Other ascites; Z79.890 Hormone replacement therapy; I25.10 Atherosclerotic heart disease of native coronary artery without angina pectoris; I48.0 Paroxysmal atrial fibrillation; N13.2 Hydronephrosis with renal and ureteral calculous obstruction; Z86.73 Personal history of transient ischemic attack (TIA), and cerebral infarction without residual deficits; N17.9 Acute kidney failure, unspecified; Z79.2 Long term (current) use of antibiotics; Z95.1 Presence of aortocoronary bypass graft; Z88.8 Allergy status to other drugs, medicaments and biological substances; K74.60 Unspecified cirrhosis of liver

== ENCOUNTER 2024-03-23 15:22 | Inpatient (IN) ==
--- OUTSIDE RECORDS SUMMARY | 2024-03-23 15:28 | External Medical Summary | Summary of Care ---
Author Name Unknown Organization [facility] Address [address] [place] [address] Phone [phone] Care Team Providers Care Performance Improvement Analyst Name Role Phone Lia Meadows MD Primary Care Provider [phone] Reason for Referral * Medication Prior Authorization - Closed Specialty Diagnoses / Procedures Referred By Ton t Referred To Contact Diagnoses Type 2 diabetes mellitus with hemoglobin A1c goal of less than 8.0% (HCC) Type 2 diabetes mellitus with stage 3a chronic kidney disease, unspecified whether penitentiary insulin use (HCC) Pat Cummings, [facility] [address] [facility] [address] Referral ID Status Reason Start Date Expiration Date Visits Re quested Visits Authorized [id number] Closed 999 999 Reason for Visit * Reason Comments eRx-Medication Refill Encounter Details Date Type Department Care Team (Late st Contact Info) Description 01/20/2024 Refill General Internal Medicine [address] [place] [address] [place], [place] [address] Lia Meadows MD [address] [place] [address] Type 2 diabetes mellitus with hemoglobin A1c goal of less than 8.0% (HCC); Type 2 diabetes mellitus with stage 3a chronic kidney disease, unspecified whether adjunct faculty for medical terminology insulin use (HCC) Allergies Active Allergy Reactions Criticality Noted Date Comments Sulfa Antibiotics Edema Other Medium 02/01/2016 Other reaction(s): unknown Tramadol Nausea/vomiting 04/01/2021 documented as of this encounter (statuses as of 01/22/2024) Medications Medication Sig Dispensed Refills Start Date End Date Status CoQ10 200 MG Oral Capsule Take 1 Capsule by mouth daily. Active Vitamin D3 50 MCG (2000 UT) Oral Tablet Take 1 Tablet by mouth in the morning. Active Vitamin C 500 MG Oral Tablet (Ascorbic Acid) Take 1 Tablet by mouth in the morning. Active Ferrous Sulfate 325 (65 Fe) MG Oral Tablet (Feosol) Take 1 Tablet by mouth daily with dinner. 60 Tablet 06/07/20 Active Nitroglycerin 0.4 MG Sublingual Tablet Sublingual (Nitrostat) Place 1 Tablet under the tongue every 5 minutes as needed for Pain, Chest. 06/04/20 21 Active Ondansetron HCl 4 MG Oral TabletIndications: Nausea Take by mouth 1 Tablet every 8 hours as needed for Nausea. 30 Tablet 11/22/19 22 Active OneTouch Ultra Blue In Vitro Strip (Glucose Blood)Indications: DM type 2, goal HbA1c < 7% ([facility]) Use as directed 4 times a day . Use up to 3-4 times a day as directed 100 Strip 11/22/19 Active BD Pen Needle Zora U/F 32G X 4 MM (Insulin Pen Needle)Indications :Type 2 diabetes mellitus with hemoglobin A1c goal of less than 7.0% ([facility]) Use once daily with insulin 100 Each 5 03/20/20 22 Active Finasteride 5 MG Oral Tablet (Proscar) Take 1 Tablet by mouth in the morning. 12/20/19 23 Active Tamsulosin HCl 0.4 MG Oral Capsule (Flomax) Take 1 Capsule by mouth in the morning. 12/20/19 23 Active Spironolactone 50 MG Oral Tablet (Aldactone)Indicat ions:Cirrhosis of liver with ascites, unspecified hepatic cirrhosis type (HCC) Take 1 Tablet by mouth in the morning. 90 Tablet 4 02/28/20 23 Active Additional Information Patient taking differently:50 mg OralDaily(Non-Specified), Indications: after breakfast, Reported on 06/18/2023 Senna 8.6 MG Oral CapsuleIndications :Other constipation Take 1 Capsule by mouth in the morning. Add second tab if constipation and hold for 1 day if diarrhea. 06/13/20 23 Active Gabapentin 100 MG Oral Capsule (Neurontin)Indicat ions:Neck pain Take 2 Capsules by mouth at bedtime. 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 INCREASE TO TWICE A DAY FOR CONSTIPATION AND NO TAB WHEN DIARRHEA 60 Capsule 11 09/10/19 24 Active Additional Information Patient not taking.Reported on 11/19/2023 Eliquis 5 MG Oral Tablet (Apixaban) TAKE 1 TABLET BY MOUTH IN THE MORNING AND BEFORE BEDTIME 180 Tablet 3 09/10/19 24 Active Insulin Glargine Solostar 100 UNIT/ML Subcutaneous Solution Pen-injector (Lantus SoloStar)Indicatio ns:DM type 2, goal HbA1c < 7% ([facility]) INJECT 38 UNITS SUBCUTANEOUSLY DAILY BEFORE BEDTIME 09/18/19 24 Active Atorvastatin Calcium 40 MG Oral Tablet (Lipitor)Indicatio ns:Hyperlipidemia LDL goal <100 TAKE 1 TABLET BY MOUTH EVERY DAY 90 Tablet 1 09/28/19 24 Active Additional Information Patient taking differently: 40 mg Oral Daily(AM), Reported on 10/16/2023 Furosemide 20 MG Oral Tablet (Lasix)Indications :Cirrhosis of liver with ascites, unspecified hepatic cirrhosis type ([facility]) Take 1 Tablet by mouth in the morning. 180 Tablet 1 10/09/19 24 Active Metoprolol Succinate ER 100 MG Oral Tablet Extended Release 24 Hour (toPROL XL)Indications:Eugenie lothorax, right,Coronary artery disease involving qawalangin coronary artery of qawalangin heart without angina pectoris,S/P CABG x 3,HFrEF (heart failure with reduced ejection fraction) ([facility]),Ischemic cardiomyopathy,PAF (paroxysmal atrial fibrillation) ([facility]),HTN, goal below 140/90,Dyslipidemi a, goal LDL below 70,Cerebrovascular accident (CVA), unspecified mechanism ([facility]) TAKE 1 TABLET BY MOUTH EVERY DAY IN THE MORNING AND BEFORE BEDTIME 180 Tablet 3 10/15/19 24 Active Aspirin Low Dose 81 MG Oral Tablet Delayed Release (aspirin enteric coated)Indications :Coronary artery disease involving qawalangin coronary artery of qawalangin heart without angina pectoris,Ischemic cardiomyopathy,PAF (paroxysmal atrial fibrillation) ([facility]) TAKE 1 TABLET BY MOUTH EVERY DAY IN THE MORNING 90 Tablet 3 10/15/19 24 Active Additional Information Patient taking differently: 81 mg Oral EVERY OTHER DAY, Indications: sunday,wednesdays,fridays, Reported on 10/16/2023 Lactulose 10 GM/15ML Oral Solution (Constulose)Indica tions:Cirrhosis of liver with ascites, unspecified hepatic cirrhosis type (HCC),Other constipation Take 15 mL by mouth in the morning and 15 mL before bedtime. Can add 2 more doses if severe constipation. 237 mL 3 11/13/19 24 Active Blood Glucose Monitoring Suppl w/Device KitIndications: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, unspecified whether adjunct faculty for medical terminology insulin use (HCC),Type 2 diabetes mellitus with hemoglobin A1c goal of less than 8.0% ([facility]),Diabetic peripheral neuropathy ([facility]),Type 2 diabetes mellitus with stage 3a chronic kidney disease, unspecified whether adjunct faculty for medical terminology insulin use ([facility]) Check sugar before meals, at night time and as needed for motoring sugar . Dx -E.11.9 and E11.65 1 Kit 11/13/19 24 Active Levothyroxine Sodium 88 MCG Oral Tablet (Levoxyl)Indicatio ns:Acquired hypothyroidism TAKE 1 TABLET BY MOUTH IN THE MORNING AT LEAST 30 MINUTES PRIOR TO BREAKFAST AND OTHER MEDS 90 Tablet 1 12/26/19 24 Active Trulicity 1.5 MG/0.5ML Subcutaneous Solution Pen-injector (Dulaglutide)Indic ations:Type 2 diabetes mellitus with hemoglobin A1c goal of less than 8.0% (HCC),Type 2 diabetes mellitus with stage 3a chronic kidney disease, unspecified whether penitentiary insulin use (HCC) INJECT 1 SYRINGE SUBCUTANEOUSLY ONCE A WEEK 6 mL 3 01/22/20 24 Active Trulicity 1.5 MG/0.5ML Subcutaneous Solution Pen-injector (Dulaglutide)Indic ations:Type 2 diabetes mellitus with hemoglobin A1c goal of less than 8.0% (HCC),Type 2 diabetes mellitus with stage 3a chronic kidney disease, unspecified whether penitentiary insulin use ([facility]) INJECT 1 SYRINGE SUBCUTANEOUSLY ONCE A WEEK 6 mL 3 11/13/19 24 024 Discontinued documented as of this encounter (statuses as of 01/22/2024) Active Problems Problem Noted Date Diagnosed Date Uncontrolled type 2 diabetes mellitus with hyper glycemia 11/13/2023 Chronic kidney disease, stage 3b 06/18/2023 Overview: Per CKD protocol Type 2 diabetes mellitus wit h stage 3b chronic kidney disease 06/18/2023 Overview: Per CKD protocol Diabetic peripheral neuropathy 03/01/2023 Degenerative disease of nervous system, unspecif ied 02/05/2023 Thrombocytopenia 02/05/2023 Cirrhosis of liver with ascites 01/02/2023 Esophageal varices without bleeding 09/18/2022 HFrEF (heart failure with reduced ejection fract ion) 08/24/2022 History of CVA (cerebrovascular accident) 2021 Pericardial effusion 11/10/2021 Type 2 diabetes mellitus wit h hemoglobin A1c goal of less than 8.0% 08/22/2021 Overview: Per CKD protocol 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 PAF (paroxysmal atrial fibrillation) 06/07/2021 S/P CABG x 3 06/03/2021 Ischemic cardiomyopathy 05/28/2021 Triple vessel coronary artery disease 05/27/2021 Acquired hypothyroidism 04/01/2021 Gastroesophageal reflux disease without esophagi tis 04/01/2021 HTN, goal below 140/90 Hyperlipidemia LDL goal <100 documented as of this encounter (statuses as of 01/22/2024) Resolved Problems Problem Noted Date Diagnosed Date Resolved Date Type 2 diabetes mellitus wit h stage 3a chronic kidney disease 08/24/2022 06/21/2023 Overview: Per CKD protocol Chronic kidney disease, stage 3a 09/19/2021 06/21/2023 Overview: Per CKD protocol Dehydration 08/12/2021 08/20/[address] 08/01/2021 08/20/19 Diabetes mellitus with stage 3 chronic kidney disease 07/18/2021 08/24/2021 Overview: Per CKD protocol CKD (chronic kidney disease) stage 3, GFR 30-59 ml/min 05/27/2021 07/21/2021 Overview: Per CKD protocol Heart failure 05/05/2021 05/05/2021 documented as of this encounter (statuses as of 01/22/2024) Immunizations Name Administration Dates Next Due COVID-19 mRNA, LNP-s, No Pre serve, 2-Dose Series (Moderna) 10/12/2020,09/22/2020 COVID-19, mRNA, LNP-s, PF, B ooster, 100mcg/0.5mg (Moderna) 05/09/2021 Pneumococcal Conjugate Vacc, 13 Valent (Prevnar) 01/28/2018,01/02/2018 Pneumococcal Polysaccharide PPV23 (Pneumovax) 09/16/2018 Seasonal Influenza Virus Vac cine, Unspecified Formulation 04/01/2021,04/23/2019,04/25/2017,05/09 Seasonal Influenza, PF, 6 M & above, IM , (FluLaval or Fluzone) 04/23/2019,04/25/2017,05/09/2015 Seasonal Influenza, Quadriva lent Hd (Fluzone Hd) 06/13/2023,03/30/2022,04/01/2021,03/27,04/10/2017 TDAP (age 10 and older)(Boostrix) 07/23/2017 TDAP, Age 7 and older, IM (Adacel) 07/23/2017 documented as of this encounter Social History Tobacco Use Types Packs/Day Years Used Date Smoking Tobacco: Former Cigarettes 2 15 1 970 - 1985 Smokeless Tobacco: Never Alcohol Use Standard Drinks/Week Comments Not Currently 0 (1 standard drink = 0.6 oz pur e alcohol) quit in mid PHQ-2 Answer Date Recorded PHQ Adult Total Score 0 11/30/2022 Hunger Vital Sign Answer Date Recorded Within the past 12 months, y ou worried that your food would run out before you got the money to buy more. Never true 12/01/19 23 Within the past 12 months, t he food you bought just didn't last and you didn't have money to get more. Never true 11/30/2022 Utilities Answer Date Recorded Do you have trouble paying y our heating, water, or electric bill? (Adult - for ages 18 years and over) Not on file 12/25/2023 Is your family able to pay t he heat, water, or electric bill? (Household - for ages 0-17 years) Not on file 12/25/2023 Does your family have access to good internet? (Household - for ages 0-17 years) Not on file 12/25/2023 Social Connections Answer Date Recorded How often do you feel lonely or isolated from those around you? (Adult - for ages 18 years and over) Not on file 12/25/2023 Sex and Gender Information Value Date Recorded Sex Assigned at Not on file Gender Identity Not on file Sexual Orientation Not on file Job Start Date Occupation Industry Not on file Not on file Not on file documented as of this encounter Functional Status Functional Status Response Date of Assess ment Are you deaf or do you have serious difficulty hearing? No 11/10/2021 Are you blind or do you have serious difficulty seeing, even when wearing glasses? No 11/10/2021 Do you have serious difficul ty walking or climbing stairs? (5 years old or older) Yes 11/10/2021 Do you have difficulty dress ing or bathing? (5 years old or older) Yes 11/10/2021 Because of a physical, menta l, or emotional condition, do you have difficulty doing errands alone such as visiting a doctor s office or shopping? (15 years old or older) Yes-occassional 11/11/19 Cognitive Status Response Date of Assessm ent Because of a physical, menta l, or emotional condition, do you have serious difficulty concentrating, remembering, or making decisions? (5 years old or older) No 11/10/2021 documented as of this encounter Miscellaneous Notes * Telephone Encounter - Pat Cummings [facility] - 01/22/2024 10:32 AM EDTSigned Prescriptions: Disp Refills Trulicity 1.5 MG/0.5ML Subcutaneous Soluti*6 mL 3 Sig: INJECT 1 SYRINGE SUBCUTANEOUSLY ONCE A WEEKAuthorizing Provider: Chuck MEADOWS User: CHRISTINE CUMMINGS * Telephone Encounter - Pat Cummings RPh - 01/22/2024 10:30 AM EDT Patient is switching pharmacies. Reissued balance of refills on current prescription(s) to [facility] [address] [place] [address]- Pat Babb, PharmD Clinical Pharmacist [facility]) [phone] 01/22/2024 10:31 AM documented in this encounter Plan of Treatment Upcoming Encounters Date Type Department Care Team (Latest Contact Info) Description 03/28/2024 8:30 AM EDT Office Visit Cardiology, [facility] [address] [place] [phone] Zabrina Britton CRNP [address] [place] [address] 04/09/2024 12:00 PM EDT Office Visit General Internal Medicine [facility] [address] [facility] [place] [address] Lia Meadows [facility] [address] [facility] [address] 05/01/2024 8:15 AM EDT Hospital Encounter ENDO OSSC, Endoscopy Room [facility] [address] [place] [phone] Zabrina Ya DO [address] [place] [address] 05/01/2024 8:15 AM EDT - 05/01/2024 8:45 AM EDT Surgery ENDO OSSC, Endoscopy Room [facility] [address] [place] [phone] Zabrina Ya DO [address] [place] [address] ESOPHAGOGASTRODUODENOSCOPY (EGD), FLEXIBLE, TRANSORAL, DIAGNOSTIC 05/23/2024 8:40 AM EST Office Visit Hepatology, [facility] [address] [place] [address] Zabrina Ya DO [address] [place] [address] 06/03/2024 2:40 PM EST Office Visit Nephrology, [facility] [address] [facility] [address] [place] [address] Breezy Meadows MD [address] [facility] [place] [address] Scheduled Procedures Name Priority Associated Diagnoses Date/Ti me ESOPHAGOGASTRODUODENOSCOPY ( EGD), FLEXIBLE, TRANSORAL, DIAGNOSTIC Alcoholic cirrhosis of liver with ascites (HCC) 05/01/2024 8:15 AM EDT Health Maintenance Due Date Last Done Comments Zoster Vaccines (1 of 2) 1996 Hepatitis B Vaccine (1 of 3 - Risk 3-dose series) 2006 COVID-19 Vaccine ( season) 2023 05/09/2021, 10/12/2020, 09/22/2020 Depression Screening 12/01/2023 11/30/2022 HbA1c 02/21/2024 08/23/2023, 02/07, 11/30/2022, Additional history exists Influenza Vaccine (FLU shot) (#1) 2024 06/13/2023, 03/30/2022, 04/01/2021, Additional history exists GFR 05/21/2024 11/19/2023, 08/09, 06/13/2023, Additional history exists Diabetic Foot Exam 06/13/2024 06/13/2023, 1 , 05/05/2021 TSH 06/13/2024 06/13/2023, 11/07, 12/07/2021, Additional history exists Albumin/Creatinine Ratio 08/23/2024 024, 07/26/2022, 05/05/2021 Diabetic Eye Exam 11/08/2024 11/09/2023, , 11/09/2023, Additional history exists CKD HGB USE SMARTSET 40418 11/18/202411/18, 11/19/2023, 08/23/2023, Additional history exists CKD PHOS USE SMARTSET 49822 11/18/202411/06, 09/27/2022, 09/04/2022, Additional history exists DTaP,Tdap,and Td Vaccines (3 - Td or Tdap) 07/23/2027 07/23/2017, 07/23/2017 Colonoscopy Discontinued 01/06/2011 Colorectal Cancer Screening Discontinued Pneumococcal Vaccine: 65+ Years Completed 09/16/2018, 01/28/2018, 01/02/2018 Cologuard Discontinued Fecal Occult Blood Test Discontinued HPV (Gardasil) Vaccine Aged Out No lo nger eligible based on patient's age to complete this topic MENINGOCOCCAL (MENACTRA/MENVEO) Aged Out No longer eligible based on patient's age to complete this topic Sigmoidoscopy Discontinued documented as of this encounter Medical Devices Implanted Type Area Clothes Ironer Device Identifier Shelf Expiration Date Model / Serial / Lot Suture Steel 6 B&S19 M654g - [id number] Implanted:Qty: 7 on 05/30/2021 by Uvaldo Fleming MD at OR [facility] N/A: Sternum JNJ : [employer] 01/05/2026 [id number] / / [id number] Lipiodol Injection - [id number] Implanted:Qty: 2 on 09/06/2021 at [facility] [employer] 10/06/2022 [id number] 1 -2 / [id number] / [id number] Lipiodol Injection - [id number] Implanted:Qty: 1 on 09/06/2021 at [facility] [employer] 10/06/2022 [id number] 1 -2 / [id number] / [id number] documented as of this encounter Visit Diagnoses Diagnosis Type 2 diabetes mellitus with stage 3a chronic kidney disease, unspecified whether adjunct faculty for medical terminology insulin use (HCC) Alcoholic cirrhosis of liver with ascites (HCC) Alcoholic cirrhosis of liver documented in this encounter Advance Directives * Full Code (Latest Code Status on File) Date Activated Date Inactivated Comments 11/10/2021 4:05 AM 11/15/2021 10:37 PM This order r eflects the patients wishes and were consensually agreed upon. Question Answer Comments Discussion of Advance Directives occurred with: Patient * Full Code Date Activated Date Inactivated Comments 09/06/2021 5:26 PM 09/13/2021 2:38 PM This order ref lects the patients wishes and were consensually agreed upon. * Full Code Date Activated Date Inactivated Comments 08/11/2021 5:21 PM 08/20/2021 5:05 PM This order re flects the patients wishes and were consensually agreed upon. * Full Code Date Activated Date Inactivated Comments 08/01/2021 3:15 PM 08/06/2021 3:27 PM Question Answer Comments Discussion of Advance Directives occurred with: Not Discussed * Full Code Date Activated Date Inactivated Comments 05/30/2021 5:25 PM 06/04/2021 3:58 PM This order reflects the patients wishes and were consensually agreed upon. Question Answer Comments Discussion of Advance Directives occurred with: Patient Care Teams Performance Improvement Analyst Relationship Specialty Start Date End Date Lia Meadows MD [address] [place] [address] PCP - General Internal Medicine 04/06/21 documented as of this encounter
--- OUTSIDE RECORDS SUMMARY | 2024-03-23 15:29 | External Medical Summary | Summary of Care ---
Author Name Unknown Organization [facility] Address [address] [place] [address] Phone [phone] Care Team Providers Care Monitoring And Evaluation Advisor Name Role Phone Lia Meadows MD Primary Care Provider [phone] Reason for Visit * Reason Onset Date Comments Test Results 11/20/2023 Encounter Details Date Type Department Care Team (Late st Contact Info) Description 11/20/[address] [facility] [place] [address] Breezy Meadows MD [address] [place] [address] Test Results Allergies Active Allergy Reactions Criticality Noted Date Comments Sulfa Antibiotics Edema Other Medium 02/01/2016 Other reaction(s): unknown Tramadol Nausea/vomiting 04/01/2021 documented as of this encounter (statuses as of 11/20/2023) Medications Medication Sig Dispensed Refills Start Date End Date Status CoQ10 200 MG Oral Capsule Take 1 Capsule by mouth daily. 0 Active Vitamin D3 50 MCG (1999 UT) Oral Tablet Take 1 Tablet by mouth in the morning. 0 Active Vitamin C 500 MG Oral Tablet (Ascorbic Acid) Take 1 Tablet by mouth in the morning. 0 Active Ferrous Sulfate 325 (65 Fe) MG Oral Tablet (Feosol) Take 1 Tablet by mouth daily with dinner. 60 Tablet 11 06/07/2021 Active Nitroglycerin 0.4 MG Sublingual Tablet Sublingual (Nitrostat) Place 1 Tablet under the tongue every 5 minutes as needed for Pain, Chest. 0 06/04/2021 Active Ondansetron HCl 4 MG Oral TabletIndications:N ausea Take by mouth 1 Tablet every 8 hours as needed for Nausea. 30 Tablet 0 11/21/2021 Active OneTouch Ultra Blue In Vitro Strip (Glucose Blood)Indications:D M type 2, goal HbA1c < 7% ([facility]) Use as directed 4 times a day . Use up to 3-4 times a day as directed 100 Strip 5 11/21/2021 Active BD Pen Needle Zora U/F 32G X 4 MM (Insulin Pen Needle)Indications: Type 2 diabetes mellitus with hemoglobin A1c goal of less than 7.0% ([facility]) Use once daily with insulin 100 Each 5 03/20/2022 Active Levothyroxine Sodium 88 MCG Oral Tablet (Levoxyl)Indication s:Acquired hypothyroidism TAKE 1 TABLET BY MOUTH IN THE MORNING AT LEAST 30 MINUTES PRIOR TO BREAKFAST AND OTHER MEDS 90 Tablet 3 12/29/2022 Active Finasteride 5 MG Oral Tablet (Proscar) Take 1 Tablet by mouth in the morning. 0 12/19/2022 Active Tamsulosin HCl 0.4 MG Oral Capsule (Flomax) Take 1 Capsule by mouth in the morning. 0 12/19/2022 Active Spironolactone 50 MG Oral Tablet (Aldactone)Indicati ons:Cirrhosis of liver with ascites, unspecified hepatic cirrhosis type (HCC) Take 1 Tablet by mouth in the morning. 90 Tablet 4 02/27/2023 Active Additional Information Patient taking differently:50 mg OralDaily(Non-Specified), Indications: after breakfast, Reported on 06/18/2023 Senna 8.6 MG Oral CapsuleIndications: Other constipation Take 1 Capsule by mouth in the morning. Add second tab if constipation and hold for 1 day if diarrhea. 0 06/13/2023 Active Gabapentin 100 MG Oral Capsule (Neurontin)Indicati ons:Neck pain Take 2 Capsules by mouth at bedtime. 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 INCREASE TO TWICE A DAY FOR CONSTIPATION AND NO TAB WHEN DIARRHEA 60 Capsule 11 09/10/2023 Active Additional Information Patient not taking.Reported on 11/19/2023 Eliquis 5 MG Oral Tablet (Apixaban) TAKE 1 TABLET BY MOUTH IN THE MORNING AND BEFORE BEDTIME 180 Tablet 3 09/10/2023 Active Insulin Glargine Solostar 100 UNIT/ML Subcutaneous Solution Pen-injector (Lantus SoloStar)Indication s:DM type 2, goal HbA1c < 7% ([facility]) INJECT 38 UNITS SUBCUTANEOUSLY DAILY BEFORE BEDTIME 0 09/18/2023 Active Atorvastatin Calcium 40 MG Oral Tablet (Lipitor)Indication s:Hyperlipidemia LDL goal <100 TAKE 1 TABLET BY MOUTH EVERY DAY 90 Tablet 1 09/28/2023 Active Additional Information Patient taking differently: 40 mg Oral Daily(AM), Reported on 10/16/2023 Furosemide 20 MG Oral Tablet (Lasix)Indications: Cirrhosis of liver with ascites, unspecified hepatic cirrhosis type ([facility]) Take 1 Tablet by mouth in the morning. 180 Tablet 1 10/09/2023 Active Metoprolol Succinate ER 100 MG Oral Tablet Extended Release 24 Hour (toPROL XL)Indications:Chyl othorax, right,Coronary artery disease involving [place] coronary artery of [place] heart without angina pectoris,S/P CABG x 3,HFrEF (heart failure with reduced ejection fraction) ([facility]),Ischemic cardiomyopathy,PAF (paroxysmal atrial fibrillation) ([facility]),HTN, goal below 140/90,Dyslipidemia , goal LDL below 70,Cerebrovascular accident (CVA), unspecified mechanism ([facility]) TAKE 1 TABLET BY MOUTH EVERY DAY IN THE MORNING AND BEFORE BEDTIME 180 Tablet 3 10/15/2023 Active Aspirin Low Dose 81 MG Oral Tablet Delayed Release (aspirin enteric coated)Indications: Coronary artery disease involving [place] coronary artery of [place] heart without angina pectoris,Ischemic cardiomyopathy,PAF (paroxysmal atrial fibrillation) ([facility]) TAKE 1 TABLET BY MOUTH EVERY DAY IN THE MORNING 90 Tablet 3 10/15/2023 Active Additional Information Patient taking differently: 81 mg Oral EVERY OTHER DAY, Indications: sunday,wednesdays,fridays, Reported on 10/16/2023 Trulicity 1.5 MG/0.5ML Subcutaneous Solution Pen-injector (Dulaglutide)Indica tions:Type 2 diabetes mellitus with hemoglobin A1c goal of less than 8.0% ([facility]),Type 2 diabetes mellitus with stage 3a chronic kidney disease, unspecified whether intermediate designer insulin use ([facility]) INJECT 1 SYRINGE SUBCUTANEOUSLY ONCE A WEEK 6 mL 3 11/13/2023 Active Lactulose 10 GM/15ML Oral Solution (Constulose)Indicat ions:Cirrhosis of liver with ascites, unspecified hepatic cirrhosis type (HCC),Other constipation Take 15 mL by mouth in the morning and 15 mL before bedtime. Can add 2 more doses if severe constipation. 237 mL 3 11/13/2023 Active Blood Glucose Monitoring Suppl w/Device KitIndications:Type 2 diabetes mellitus with stage 3b chronic kidney disease, unspecified whether intermediate designer insulin use (HCC),Type 2 diabetes mellitus with hemoglobin A1c goal of less than 8.0% (HCC),Diabetic peripheral neuropathy (HCC),Type 2 diabetes mellitus with stage 3a chronic kidney disease, unspecified whether halfway insulin use (HCC) Check sugar before meals, at night time and as needed for motoring sugar . Dx -E.11.9 and E11.65 1 Kit 0 11/13/2023 Active documented as of this encounter (statuses as of 11/20/2023) Active Problems Problem Noted Date Diagnosed Date [...] as of this encounter (statuses as of 11/20/2023) Resolved Problems Problem Noted Date Diagnosed Date [...] as of this encounter (statuses as of 11/20/2023) Immunizations Name Administration Dates Next Due COVID-19 [...] 06/13/2023,03/30/2022,04/01/2021,03/27,04/10/2017 TDAP (age 10 and older)(Boostrix) 07/23/2017 TDAP (age 11 and older)(Adacel) 07/23/2017 documented as of this encounter Social History Tobacco Use Types Packs/Day Years Used Date Smoking Tobacco: Former Cigarettes 2 15 1 0 - 1984 Smokeless Tobacco: Never Alcohol Use Standard Drinks/Week [...] money to get more. Never true 11/30/2022 Sex and Gender Information Value Date Recorded [...] (15 years old or older) Yes-occassional 11/11/19 22 Cognitive Status Response Date of Assessm ent Because of a physical, menta l, or emotional condition, do you have serious difficulty concentrating, remembering, or making decisions? (5 years old or older) No 11/10/2021 documented as of this encounter Miscellaneous Notes * Telephone Encounter - Lashae Srinivasan RN - 11/20/2023 8:46 AM EDT Te with pt regarding lab results. * Telephone Encounter - Lashae Srinivasan RN - 11/20/2023 8:44 AM EDT ----- Message from Breezy Meadows MD sent at 11/20/2023 8:24 AM EDT ----- Labs abnormal but overall stable. documented in this encounter Plan of Treatment Upcoming Encounters Date Type Department Care Team (Latest Contact Info) Description 11/22/2023 7:45 AM EDT Imaging Radiology [facility] [address] [place] [address] 11/22/2023 9:00 AM EDT [facility] [address] [place] [address] 03/28/2024 8:30 AM EDT Office Visit Cardiology, [facility] [address] [place] [address] Zabrina Britton CRNP [address] [place] [address] 04/09/2024 12:00 PM EDT Office Visit General Internal Medicine [facility] [address] [facility] [place] [address] Lia Meadows MD [address] [facility] [place] [address] 05/01/2024 8:15 AM EDT Hospital Encounter ENDO [facility], Endoscopy Room [facility] [address] [place] [phone] Zabrina Ya DO [address] [place] [address] 05/01/2024 8:15 AM EDT - 05/01/2024 8:45 AM EDT Surgery ENDO [facility], Endoscopy Room [facility] [address] [place] [phone] Zabrina Ya, DO [address] [place] [address] ESOPHAGOGASTRODUODENOSCOPY (EGD), FLEXIBLE, TRANSORAL, DIAGNOSTIC 05/23/2024 8:40 AM EST Office Visit Hepatology, [facility] [address] [place] [address] Zabrina Ya, DO [address] [place] [address] 06/03/2024 2:40 PM EST Office Visit Nephrology, [facility] [address] [facility] [place] [address] Breezy Meadows MD [address] [facility] [place] [address] Scheduled Procedures Name Priority Associated Diagnoses Date/Ti me ESOPHAGOGASTRODUODENOSCOPY ( EGD), FLEXIBLE, TRANSORAL, DIAGNOSTIC Alcoholic cirrhosis of liver with ascites (HCC) 05/01/2024 8:15 AM EDT Health Maintenance Due Date Last Done Comments Zoster Vaccines (1 of 2) 1996 Hepatitis B (1 of 3 - Risk 3-dose series) 2006 COVID-19 Vaccine ( season) 2023 05/09/2021, 10/12/2020, 09/22/2020 Depression Screening 12/01/2023 11/30/2022 HbA1c 02/21/2024 08/23/2023, 02/07, 11/30/2022, Additional history exists GFR 05/21/2024 11/19/2023, 08/09, 06/13/2023, Additional history exists Diabetic Foot Exam 06/13/2024 06/13/2023, 1 , 05/05/2021 TSH 06/13/2024 06/13/2023, 11/07, 12/07/2021, Additional history exists Albumin/Creatinine Ratio 08/23/2024 024, 07/26/2022, 05/05/2021 Diabetic Eye Exam 11/08/2024 11/09/2023, , 11/08/2022, Additional history exists CKD HGB USE SMARTSET 36365 11/18/202411/18, 11/19/2023, 08/23/2023, Additional history exists CKD PHOS USE SMARTSET 80914 11/18/202411/06, 09/27/2022, 09/04/2022, Additional history exists DTaP,Tdap,and Td Vaccines (3 - Td or Tdap) 07/23/2027 07/23/2017, 07/23/2017 Colonoscopy Discontinued 01/06/2011 Colorectal Cancer Screening Discontinued Pneumococcal Vaccine: 65+ Years Completed 09/16/2018, 01/28/2018, 01/02/2018 Influenza Vaccine (FLU shot) Completed 06/13/2023, 03/30/2022, 04/01/2021, Additional history exists Cologuard Discontinued Fecal Occult Blood Test Discontinued GARDASIL-HPV IMMUNIZATION SERIES Aged Out No longer eligible based on patient's age to complete this topic MENINGOCOCCAL (MENACTRA/MENVEO) Aged Out No longer eligible based on patient's age to complete this topic Sigmoidoscopy Discontinued documented as of this encounter Medical Devices Implanted Type Area Smoke And Fl[employer] Specialist Device Identifier Shelf Expiration Date Model / Serial / Lot Suture Steel 6 B&S19 [id number] - [id number] Implanted:Qty: 7 on 05/30/2021 by Uvaldo Fleming MD at OR [facility] N/A: Sternum JNJ : [employer] 01/05/2026 [id number] / / [id number] Lipiodol Injection - [id number] Implanted:Qty: 2 on 09/06/2021 at [facility] [employer] 10/06/2022 [id number] 1 -2 / [id number] / [id number] Lipiodol Injection - [id number] Implanted:Qty: 1 on 09/06/2021 at [facility] [employer] 10/06/2022 [id number] 1 -2 / [id number] / [id number] documented as of this encounter Advance Directives Latest Code Status on File Code Status Date Activated Date Inactivated Comments Full Code 11/10/2021 4:05 AM 11/15/2021 10:37 PM This order reflects the patients wishes and were consensually agreed upon. Question Answer Comments Discussion of Advance Directives occurred with: Patient Code Status History Code Status Date Activated Date Inactivated Comments Full Code 09/06/2021 5:26 PM 09/13/2021 2:38 PM This or ismael reflects the patients wishes and were consensually agreed upon. Full Code 08/11/2021 5:21 PM 08/20/2021 5:05 PM This o rder reflects the patients wishes and were consensually agreed upon. Full Code 08/01/2021 3:15 PM 08/06/2021 3:27 PM Question Answer Comments Discussion of Advance Directives occurred with: Not Discussed Full Code 05/30/2021 5:25 PM 06/04/2021 3:58 PM Thi s order reflects the patients wishes and were consensually agreed upon. Question Answer Comments Discussion of Advance Directives occurred with: Patient Care Teams Monitoring And Evaluation Advisor Relationship Specialty Start Date End Date Lia Meadows MD [address] [facility] [place] [address] PCP - General Internal Medicine 04/06/21 documented as of this encounter
--- OUTSIDE RECORDS SUMMARY | 2024-03-23 15:29 | External Medical Summary | Summary of Care ---
Author Name Unknown Organization [facility] Address [address] [place] [address] Phone [phone] Care Team Providers Care Registrar Assistant Name Role Phone Lia Meadows MD Primary Care Provider [phone] Reason for Visit * Reason Comments Follow Up 5mo return Acute Started with abdomin al bloating and weight gain over the past month. States it is very hard and very uncomfortable, also feels uncomfortable in his chest. Gets out of breath just putting his shirt on. Encounter Details Date Type Department Care Team (Late st Contact Info) Description 11/13/2023 9:40 AM EDT Office Visit General Internal Medicine [facility] [place] [address] [facility] [place] [address] Lia Meadows MD [address] [facility] [place] [address] Type 2 diabetes mellitus with stage 3b chronic kidney disease, unspecified whether alf insulin use (HCC)*; Type 2 diabetes mellitus with hemoglobin A1c goal of less than 8.0% (HCC); Triple vessel coronary artery disease; Thrombocytopenia (HCC); S/P CABG x 3; Pericardial effusion; PAF (paroxysmal atrial fibrillation) (HCC); Ischemic cardiomyopathy; Hyperlipidemia LDL goal <100; History of CVA (cerebrovascular accident); HFrEF (heart failure with reduced ejection fraction) (HCC); Gastroesophageal reflux disease without esophagitis; Esophageal varices without bleeding, unspecified esophageal varices type (HCC); Diabetic peripheral neuropathy (HCC); Cirrhosis of liver with ascites, unspecified hepatic cirrhosis type (HCC); 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; Chronic kidney disease, stage 3b ([facility]); Acquired hypothyroidism; Type 2 diabetes mellitus with stage 3a chronic kidney disease, unspecified whether alf insulin use ([facility]); Other constipation Allergies Active Allergy Reactions Criticality Noted Date Comments Sulfa Antibiotics Edema Other Medium 02/01/2016 Other reaction(s): unknown Tramadol Nausea/vomiting 04/01/2021 documented as of this encounter (statuses as of 11/13/2023) Medications Medication Sig Dispensed Refills Start Date End Date Status CoQ10 200 MG Oral Capsule Take 1 Capsule by mouth daily. 0 Active Vitamin D3 50 MCG (2000 UT) Oral Tablet Take 1 Tablet by mouth in the morning. 0 Active Vitamin C 500 MG Oral Tablet (Ascorbic Acid) Take 1 Tablet by mouth in the morning. 0 Active Ferrous Sulfate 325 (65 Fe) MG Oral Tablet (Feosol) Take 1 Tablet by mouth daily with dinner. 60 Tablet 11 1 Active Nitroglycerin 0.4 MG Sublingual Tablet Sublingual (Nitrostat) Place 1 Tablet under the tongue every 5 minutes as needed for Pain, Chest. 0 1 Active Ondansetron HCl 4 MG Oral TabletIndications:N ausea Take by mouth 1 Tablet every 8 hours as needed for Nausea. 30 Tablet 0 2 Active OneTouch Ultra Blue In Vitro Strip (Glucose Blood)Indications:D M type 2, goal HbA1c < 7% ([facility]) Use as directed 4 times a day . Use up to 3-4 times a day as directed 100 Strip 5 2 Active BD Pen Needle Zora U/F 32G X 4 MM (Insulin Pen Needle)Indications: Type 2 diabetes mellitus with hemoglobin A1c goal of less than 7.0% ([facility]) Use once daily with insulin 100 Each 5 2 Active Levothyroxine Sodium 88 MCG Oral Tablet (Levoxyl)Indication s:Acquired hypothyroidism TAKE 1 TABLET BY MOUTH IN THE MORNING AT LEAST 30 MINUTES PRIOR TO BREAKFAST AND OTHER MEDS 90 Tablet 3 3 Active Finasteride 5 MG Oral Tablet (Proscar) Take 1 Tablet by mouth in the morning. 0 3 Active Tamsulosin HCl 0.4 MG Oral Capsule (Flomax) Take 1 Capsule by mouth in the morning. 0 3 Active Spironolactone 50 MG Oral Tablet (Aldactone)Indicati ons:Cirrhosis of liver with ascites, unspecified hepatic cirrhosis type (HCC) Take 1 Tablet by mouth in the morning. 90 Tablet 4 3 Active Additional Information Patient taking differently:50 mg OralDaily(Non-Specified), Indications: after breakfast, Reported on 06/18/2023 Senna 8.6 MG Oral CapsuleIndications: Other constipation Take 1 Capsule by mouth in the morning. Add second tab if constipation and hold for 1 day if diarrhea. 0 3 Active Gabapentin 100 MG Oral Capsule (Neurontin)Indicati ons:Neck pain Take 2 Capsules by mouth at bedtime. 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 INCREASE TO TWICE A DAY FOR CONSTIPATION AND NO TAB WHEN DIARRHEA 60 Capsule 11 4 Active Eliquis 5 MG Oral Tablet (Apixaban) TAKE 1 TABLET BY MOUTH IN THE MORNING AND BEFORE BEDTIME 180 Tablet 3 4 Active Insulin Glargine Solostar 100 UNIT/ML Subcutaneous Solution Pen-injector (Lantus SoloStar)Indication s:DM type 2, goal HbA1c < 7% (HCC) INJECT 38 UNITS SUBCUTANEOUSLY DAILY BEFORE BEDTIME 0 4 Active Atorvastatin Calcium 40 MG Oral Tablet (Lipitor)Indication s:Hyperlipidemia LDL goal <100 TAKE 1 TABLET BY MOUTH EVERY DAY 90 Tablet 1 4 Active Additional Information Patient taking differently: 40 mg Oral Daily(AM), Reported on 10/16/2023 Furosemide 20 MG Oral Tablet (Lasix)Indications: Cirrhosis of liver with ascites, unspecified hepatic cirrhosis type (HCC) Take 1 Tablet by mouth in the morning. 180 Tablet 1 4 Active Metoprolol Succinate ER 100 MG Oral Tablet Extended Release 24 Hour (toPROL XL)Indications:Chyl othorax, right,Coronary artery disease involving lumbee coronary artery of lumbee heart without angina pectoris,S/P CABG x 3,HFrEF (heart failure with reduced ejection fraction) (HCC),Ischemic cardiomyopathy,PAF (paroxysmal atrial fibrillation) (HCC),HTN, goal below 140/90,Dyslipidemia , goal LDL below 70,Cerebrovascular accident (CVA), unspecified mechanism (HCC) TAKE 1 TABLET BY MOUTH EVERY DAY IN THE MORNING AND BEFORE BEDTIME 180 Tablet 3 4 Active Aspirin Low Dose 81 MG Oral Tablet Delayed Release (aspirin enteric coated)Indications: Coronary artery disease involving lumbee coronary artery of lumbee heart without angina pectoris,Ischemic cardiomyopathy,PAF (paroxysmal atrial fibrillation) ([facility]) TAKE 1 TABLET BY MOUTH EVERY DAY IN THE MORNING 90 Tablet 3 4 Active Additional Information Patient taking differently: 81 mg Oral EVERY OTHER DAY, Indications: sunday,wednesdays,fridays, Reported on 10/16/2023 Trulicity 1.5 MG/0.5ML Subcutaneous Solution Pen-injector (Dulaglutide)Indica tions:Type 2 diabetes mellitus with hemoglobin A1c goal of less than 8.0% ([facility]),Type 2 diabetes mellitus with stage 3a chronic kidney disease, unspecified whether medical terminologist insulin use ([facility]) INJECT 1 SYRINGE SUBCUTANEOUSLY ONCE A WEEK 6 mL 3 4 Active Lactulose 10 GM/15ML Oral Solution (Constulose)Indicat ions:Cirrhosis of liver with ascites, unspecified hepatic cirrhosis type (HCC),Other constipation Take 15 mL by mouth in the morning and 15 mL before bedtime. Can add 2 more doses if severe constipation. 237 mL 3 4 Active Blood Glucose Monitoring Suppl w/Device KitIndications:Type 2 diabetes mellitus with stage 3b chronic kidney disease, unspecified whether medical terminologist insulin use ([facility]),Type 2 diabetes mellitus with hemoglobin A1c goal of less than 8.0% ([facility]),Diabetic peripheral neuropathy ([facility]),Type 2 diabetes mellitus with stage 3a chronic kidney disease, unspecified whether medical terminologist insulin use ([facility]) Check sugar before meals, at night time and as needed for motoring sugar . Dx -E.11.9 and E11.65 1 Kit 0 4 Active Trulicity 1.5 MG/0.5ML Subcutaneous Solution Pen-injector (Dulaglutide)Indica tions:Type 2 diabetes mellitus with hemoglobin A1c goal of less than 8.0% (HCC),Type 2 diabetes mellitus with stage 3a chronic kidney disease, unspecified whether alf insulin use ([facility]) INJECT 1 SYRINGE SUBCUTANEOUSLY ONCE A WEEK 6 mL 0 4 11/13/19 Discontinu ed(Refill) Trulicity 0.75 MG/0.5ML Subcutaneous Solution Pen-injector (Dulaglutide)Indica tions:Type 2 diabetes mellitus with stage 3b chronic kidney disease (HCC) Inject 0.75 mg under the skin once a week. 2 mL 2 4 11/13/19 Discontinu ed(End of Procedure) documented as of this encounter (statuses as of 11/13/2023) Active Problems Problem Noted Date Diagnosed Date [...] as of this encounter (statuses as of 11/13/2023) Resolved Problems Problem Noted Date Diagnosed Date [...] as of this encounter (statuses as of 11/13/2023) Immunizations Name Administration Dates Next Due COVID-19 [...] Former Cigarettes 2 15 1 970 - 1984 Smokeless Tobacco: Never Alcohol Use [...] on file documented as of this encounter Last Filed Vital Signs Vital Sign Reading Time Taken Comments Blood Pressure 120/62 11/13/2023 9:54 AM EDT Pulse 73 11/13/2023 9:54 AM EDT Temperature 36.2 C (97.1 F) 11/13/2023 9:54 AM ED T Respiratory Rate - - Oxygen Saturation 99% 11/13/2023 9:54 AM EDT Inhaled Oxygen Concentration - - Weight 78 kg (172 lb) 11/13/2023 9:54 AM EDT Height 177.8 cm (5' 10") 11/13/2023 9:54 AM EDT Body Mass Index 24.68 11/13/2023 9:54 AM EDT documented in this encounter Functional Status Functional Status Response [...] No 11/10/2021 documented as of this encounter Progress Notes * Lia Meadows MD - 11/13/2023 10:01 AM EDT Images from the original note were not included. History of Present Illness Norris Francois is a 78 year old male that presents for Follow Up (5mo return) and Acute (Started with abdominal bloating and weight gain over the past month. States it is very hard and very uncomfortable, also feels uncomfortable in his chest. Gets out of breath just putting his shirt on. ) 78 year old male with PMH significant for recently diagnosed CAD s/p CABG and ischemic cardiomyopathy ,DM type 2 with CKD , GERD, HTN, Hyperlipidemia, presents here for recheck. Acute concern :- -Started with abdominal bloating and weight gain over the past month. States it is very hard and very uncomfortable, also feels uncomfortable in his chest. Gets out of breath just putting his shirt on due to the abdominal distention. Pulse ox okay today -sugar was high when he could not get Trulicity but got lower dose 1 due to shortage but now finally got his real does. Not able to check his sugar as glucometer keeps saying it is falls even if it looks himself in the forearm. Hard to poke it in hands as can not get accurate reading. Was never on c ontinuous glucose monitoring. Does not want to see MTM as he is already seen so many doctors Interimmedical history : As above Watching diet and exercise : Not so much Routine labs : Will be due in a month Routine HM : Up-to-date except COVID booster and shingles. Deferred hepatitis-B vaccines Chronic medical problem: reviewed and stable Physical Exam Vitals: 11/13/23 0954 Temp: 36.2 C (97.1 F) Pulse: 73 SpO2: 99% BP: 120/62 BMI: 24.68 Physical Exam Vitals and nursing note reviewed. Constitutional: General: He is not in acute distress. Appearance: He is normal weight. He is ill-appearing. HENT: Head: Normocephalic. Cardiovascular: Rate and Rhythm: Normal rate and regular rhythm. Pulmonary: Effort: Pulmonary effort is normal. No respiratory distress. Breath sounds: No wheezing. Abdominal: General: Bowel sounds are normal. There is distension. Palpations: Abdomen is soft. There is no mass. Tenderness: There is no abdominal tenderness. Comments: Ascites plus Musculoskeletal: General: No swelling, tenderness or signs of injury. Cervical back: Neck supple. No rigidity. Skin: General: Skin is warm. Findings: No lesion or rash. Neurological: Mental Status: He is alert. Psychiatric: Mood and Affect: Mood normal. I have reviewed the following results: Assessment and Plan Type 2 diabetes mellitus with stage 3b chronic kidney disease, unspecified whether medical terminologist insulin use (HCC) Continue Lantus until next blood work. Needs Trulicity - Blood Glucose Monitoring Suppl w/Device Kit; Check sugar before meals, at night time and as needed for motoring sugar . Dx -E.11.9 and E11. - HEMOGLOBIN A1C; Future Type 2 diabetes mellitus with hemoglobin A1c goal of less than 8.0% ([facility]) - Trulicity 1.5 MG/0.5ML Subcutaneous Solution Pen-injector (Dulaglutide); INJECT 1 SYRINGE SUBCUTANEOUSLY ONCE A WEEK - Blood Glucose Monitoring Suppl w/Device Kit; Check sugar before meals, at night time and as needed for motoring sugar . Dx -E.11.9 and Triple vessel coronary artery disease Thrombocytopenia ([facility]) S/P CABG x 3 Pericardial effusion PAF (paroxysmal atrial fibrillation) ([facility]) Stable Continue current treatment as directed by Cardiology Ischemic cardiomyopathy Stable Continue current treatment as directed Hyperlipidemia LDL goal <100 History of CVA (cerebrovascular accident) Stable Continue current treatment as directed HFrEF (heart failure with reduced ejection fraction) ([facility]) Clinically seems euvolemic Gastroesophageal reflux disease without esophagitis Esophageal varices without bleeding, unspecified esophageal varices type ([facility]) Diabetic peripheral neuropathy ([facility]) - Blood Glucose Monitoring Suppl w/Device Kit; Check sugar before meals, at night time and as needed for motoring sugar . Dx -E.11.9 and E1165 Cirrhosis of liver with ascites, unspecified hepatic cirrhosis type ([facility]) Can continue Colace for now and once lactulose works better can discontinue Colace - Lactulose 10 GM/15ML Oral Solution (Constulose); Take 15 mL by mouth in the morning and 15 mL before bedtime. Can add 2 more doses if severe constipation. 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 Dx -E.11.9 and E11.65 Other constipation - Lactulose 10 GM/15ML Oral Solution (Constulose); Take 15 mL by mouth in the morning and 15 mL before bedtime. Can add 2 more doses if severe constipation. Wrap-Up Time: I spent a total of 40-54 minutes (exact time 44 mins) on the date of service in preparation, delivery, and documentation of the care provided to Norris Francois excluding any time spent in the performance of separately billed services. documented in this encounter Nursing Notes * Shante Westbrook LPN - 11/13/2023 9:54 AM EDT Chief Complaint Patient presents with Follow Up 5mo return Acute Started with abdominal bloating and weight gain over the past month. States it is very hard and very uncomfortable, also feels uncomfortable in his chest. Gets out of breath just putting his shirt on. documented in this encounter Plan of Treatment Upcoming Encounters Date Type Department Care Team (Late st Contact Info) Description 11/19/2023 10:40 AM EDT Office Visit Hepatology, [facility] [address] [place] [address] Zabrina Ya DO [address] [place] [address] 12/21/2023 9:00 AM EDT Imaging Radiology [facility] [address] [place] [address] 03/28/2024 8:30 AM EDT Office Visit Cardiology, [facility] [address] [place] [address] Zabrina Britton CRNP [address] [place] [address] 04/09/2024 12:00 PM EDT Office Visit General Internal Medicine [facility] [address] [facility] [place] [address] Lia Meadows MD [address] [facility] [place] [address] 06/03/2024 2:40 PM EST Office Visit Nephrology, [facility] [address] [facility] [place] [address] Breezy Meadows MD [address] [facility] [place] [address] Scheduled Orders Name Type Priority Associated Diagnoses Orde r Schedule COMPREHENSIVE METABOLIC PANEL Lab Routine Cirrhosis of liver with ascites, unspecified hepatic cirrhosis type (HCC) Expected: 12/14/2023, Expires: 11/12/2024 HEMOGLOBIN A1C Lab Routine Type 2 diabetes mellitus with stage 3b chronic kidney disease, unspecified whether alf insulin use (HCC) Expected: 12/14/2023, Expires: 11/12/2024 CBC Lab Routine Cirrhosis of liver with ascites, unspecified hepatic cirrhosis type (HCC) Expected: 12/14/2023, Expires: 11/12/2024 TSH WITH FREE T4 IF INDICATED Lab Routine Acquired hypothyroidism Expected: 12/14/2023, Expires: 11/12/2024 PHOSPHORUS Lab Routine Chronic kidney disease, stage 3b (HCC) Expected: 12/14/2023, Expires: 11/12/2024 Health Maintenance Due Date Last Done Comments Zoster Vaccines (1 of 2) 1996 Hepatitis B (1 of 3 - Risk 3-dose series) 2006 COVID-19 Vaccine ( season) 2023 05/09/2021, 10/12/2020, 09/22/2020 CKD PHOS USE SMARTSET [id number] 09/28/2023 03/2 08/2022, 09/04/2022, 07/26/2022, Additional history exists Depression Screening 12/01/2023 11/30/2022 GFR 02/21/2024 08/23/2023, 12/12/2022, 06/04/2023, Additional history exists HbA1c 02/21/2024 08/23/2023, 02/07, 11/30/2022, Additional history exists Diabetic Foot Exam 06/13/2024 06/13/2023, 1 , 05/05/2021 TSH 06/13/2024 06/13/2023, 11/07, 12/07/2021, Additional history exists Albumin/Creatinine Ratio 08/23/2024 024, 07/26/2022, 05/05/2021 CKD HGB USE SMARTSET [id number] 08/23/202408/23, 08/23/2023, 06/04/2023, Additional history exists Diabetic Eye Exam 11/08/2024 11/09/2023, , 11/08/2022, Additional history exists DTaP,Tdap,and Td Vaccines (3 [...] this encounter Medical Devices Implanted Type Area Wood Type Cutter Device Identifier Shelf Expiration Date Model / Serial / Lot Suture Steel 6 B&S19 [id number] - [id number] Implanted:Qty: 7 on 05/30/2021 by Uvaldo Fleming MD at OR [facility] N/A: Bridget ZHANG : [employer] 01/05/2026 [id number] / / [id number] Lipiodol Injection - [id number] Implanted:Qty: 2 on 09/06/2021 at [facility] 10/06/2022 [id number] 1 -2 / [id number] / [id number] Lipiodol Injection - [id number] Implanted:Qty: 1 on 09/06/2021 at [facility] 10/06/2022 [id number] 1 -2 / [id number] / [id number] documented as of this encounter Visit Diagnoses Diagnosis Type 2 diabetes mellitus with stage 3b chronic kidney disease, unspecified whether medical terminologist insulin use (HCC)- Primary Triple vessel coronary artery disease Coronary atherosclerosis of unspecified type of vessel, lumbee or graft Thrombocytopenia (HCC) Thrombocytopenia, unspecified S/P CABG x 3 Postsurgical aortocoronary bypass status Pericardial effusion Unspecified disease of pericardium PAF (paroxysmal atrial fibrillation) (HCC) Atrial fibrillation Ischemic cardiomyopathy Other specified forms of chronic ischemic heart disease Hyperlipidemia LDL goal <100 Other and unspecified hyperlipidemia History of CVA (cerebrovascular accident) Transient ischemic attack (TIA), and cerebral infarction without residual deficits HFrEF (heart failure with reduced ejection fraction) (HCC) Gastroesophageal reflux disease without esophagitis Esophageal reflux Esophageal varices without bleeding, unspecified esophageal varices type (HCC) Diabetic peripheral neuropathy (HCC) Type II or unspecified type diabetes mellitus with neurological manifestations, not stated as uncontrolled Cirrhosis of liver with ascites, unspecified hepatic cirrhosis type (HCC) 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 Other noninfectious disorders of lymphatic channels Chronic kidney disease, stage 3b (HCC) Acquired hypothyroidism Unspecified hypothyroidism Type 2 diabetes mellitus with stage 3a chronic kidney disease, unspecified whether medical terminologist insulin use (HCC) Other constipation documented in this encounter Advance Directives Latest Code Status [...] Advance Directives occurred with: Patient Care Teams Registrar Assistant Relationship Specialty Start Date End Date Lia Meadows MD [address] [facility] [place] [address] PCP - General Internal Medicine 04/06/21 documented as of this encounter
--- OUTSIDE RECORDS SUMMARY | 2024-03-23 15:29 | External Medical Summary | Summary of Care ---
Author Name Unknown Organization [facility] Address [address] [place] [address] Phone [phone] Care Team Providers Care Casting Tester Name Role Phone Lia Meadows MD Primary Care Provider [phone] Encounter Details Date Type Department Care Team (Late st Contact Info) Description 11/12/2023 Orders Only General Internal Medicine [facility] [place] [address] [facility] [place] [address] Lia Meadows MD 200 [place] [address] Allergies Active Allergy Reactions Criticality Noted Date Comments Sulfa Antibiotics Edema Other Medium 02/01/2016 Other reaction(s): unknown Tramadol Nausea/vomiting 04/01/2021 documented as of this encounter (statuses as of 11/12/2023) Medications Medication Sig Dispensed Refills Start Date [...] M type 2, goal HbA1c < 7% ([facility]) Use as directed 4 times a day . Use up to 3-4 times a day as directed 100 Strip 5 11/21/2021 Active BD Pen Needle Zora U/F 32G X 4 MM (Insulin Pen Needle)Indications: Type 2 diabetes mellitus with hemoglobin A1c goal of less than 7.0% ([facility]) Use once daily with insulin 100 Each [...] WHEN DIARRHEA 60 Capsule 11 09/10/2023 Active Eliquis 5 MG Oral Tablet (Apixaban) TAKE 1 TABLET BY MOUTH IN THE MORNING AND BEFORE BEDTIME 180 Tablet 3 09/10/2023 Active Trulicity 1.5 MG/0.5ML Subcutaneous Solution Pen-injector (Dulaglutide)Indica tions:Type 2 diabetes mellitus with hemoglobin A1c goal of less than 8.0% ([facility]),Type 2 diabetes mellitus with stage 3a chronic kidney disease, unspecified whether intermediate frame tender insulin use ([facility]) INJECT 1 SYRINGE SUBCUTANEOUSLY ONCE A WEEK 6 mL 0 09/19/2023 Active Additional Information Patient not taking.Reported on 10/16/2023 Insulin Glargine Solostar 100 UNIT/ML Subcutaneous Solution Pen-injector (Lantus SoloStar)Indication s:DM type 2, goal HbA1c < 7% ([facility]) INJECT 38 UNITS SUBCUTANEOUSLY DAILY BEFORE BEDTIME 0 09/18/2023 Active Atorvastatin Calcium 40 MG Oral Tablet (Lipitor)Indication s:Hyperlipidemia LDL goal <100 TAKE 1 TABLET BY MOUTH EVERY DAY 90 Tablet 1 09/28/2023 Active Additional Information Patient taking differently: 40 mg Oral Daily(AM), Reported on 10/16/2023 Trulicity 0.75 MG/0.5ML Subcutaneous Solution Pen-injector (Dulaglutide)Indica tions:Type 2 diabetes mellitus with stage 3b chronic kidney disease ([facility]) Inject 0.75 mg under the skin once a week. 2 mL 2 10/03/2023 Active Additional Information Patient taking differently:0.75 mg Subcutaneous QWEEK,Indications: sunday, Reported on 10/16/2023 Furosemide 20 MG Oral Tablet (Lasix)Indications: Cirrhosis of liver with ascites, unspecified hepatic cirrhosis type ([facility]) Take 1 Tablet by mouth in the morning. 180 Tablet 1 10/09/2023 Active Metoprolol Succinate ER 100 MG Oral Tablet Extended Release 24 Hour (toPROL XL)Indications:Chyl othorax, right,Coronary artery disease involving [place] coronary artery of [place] heart without angina pectoris,S/P CABG x 3,HFrEF (heart failure with reduced ejection fraction) ([facility]),Ischemic cardiomyopathy,PAF (paroxysmal atrial fibrillation) ([facility]),HTN, goal below 140/90,Dyslipidemia , goal LDL below 70,Cerebrovascular accident (CVA), unspecified mechanism ([facility]) TAKE 1 TABLET BY MOUTH EVERY DAY IN THE MORNING AND BEFORE BEDTIME 180 Tablet 3 10/15/2023 Active Aspirin Low Dose 81 MG Oral Tablet Delayed Release (aspirin enteric coated)Indications: Coronary artery disease involving [place] ira coronary artery of [place] heart without angina pectoris,Ischemic cardiomyopathy,PAF (paroxysmal atrial fibrillation) (HCC) TAKE 1 TABLET BY MOUTH EVERY DAY IN THE MORNING 90 Tablet 3 10/15/2023 Active Additional Information Patient taking differently: 81 mg Oral EVERY OTHER DAY, Indications: sunday,wednesdays,fridays, Reported on 10/16/2023 documented as of this encounter (statuses as of 11/12/2023) Active Problems Problem Noted Date Diagnosed Date Type 2 diabetes mellitus wit h stage 3a chronic kidney disease 09/14/2023 Chronic kidney disease, stage 3b 06/18/2023 Overview: [...] as of this encounter (statuses as of 11/12/2023) Resolved Problems Problem Noted Date Diagnosed Date [...] as of this encounter (statuses as of 11/12/2023) Immunizations Name Administration Dates Next Due COVID-19 [...] oz pur e alcohol) quit in mid 1989' PHQ-2 Answer Date Recorded PHQ Adult Total [...] No 11/10/2021 documented as of this encounter Plan of Treatment Upcoming Encounters Date Type Department Care Team (Late st Contact Info) Description 11/13/2023 9:40 AM EDT Office Visit General Internal Medicine [facility] [address] [place] [address] Lia Meadows MD [address] [place] [address] 11/19/2023 3:00 PM EDT Office Visit Hepatology, [facility] [address] [place] [address] Zabrina Ya DO [address] [place] [address] 12/21/2023 9:00 AM EDT Imaging Radiology [facility] [address] [place] [address] 03/28/2024 8:30 AM EDT Office Visit Cardiology, [facility] [address] [place] [address] Zabrina Britton CRNP 132 [facility] [place] [address] 06/03/2024 2:40 PM EST Office Visit Nephrology, [facility] [address] [facility] [address] [place] [address] Breezy Meadows MD 200 [facility] [place] [address] Health Maintenance Due Date Last Done Comments Zoster Vaccines (1 of 2) 1996 Hepatitis B (1 of 3 - Risk 3-dose series) 2006 COVID-19 Vaccine ( season) 2023 05/09/2021, 10/12/2020, 09/22/2020 CKD PHOS USE SMARTSET 11997 09/28/202309/07, 09/04/2022, 07/26/2022, Additional history exists Diabetic Eye Exam 11/09/2023 11/09/2023, , 11/08/2022, Additional history exists Depression Screening 12/01/2023 11/30/2022 GFR 02/21/2024 08/23/2023, 12/2022, 06/04/2023, Additional history exists HbA1c 02/21/2024 08/23/2023, 02/07, 11/30/2022, Additional history exists Diabetic Foot Exam 06/13/2024 06/13/2023, 1 , 05/05/2021 TSH 06/13/2024 06/13/2023, 11/07, 12/07/2021, Additional history exists Albumin/Creatinine Ratio 08/23/2024 024, 07/26/2022, 05/05/2021 CKD HGB USE SMARTSET 53533 08/23/202408/23, 08/23/2023, 06/04/2023, Additional history exists DTaP,Tdap,and Td Vaccines (3 [...] this encounter Medical Devices Implanted Type Area Hat Marker Device Identifier Shelf Expiration Date Model / Serial / Lot Suture Steel 6 B&S19 M654g - [id number] Implanted:Qty: 7 on 05/30/2021 by Uvaldo Fleming MD at [facility] N/A: Sternum JNJ : [employer] 01/05/2026 M654G / / [id number] Lipiodol Injection - [id number] Implanted:Qty: 2 on 09/06/2021 at [facility] [employer] 10/06/2022 [id number] 1 -2 / [id number] / [id number] Lipiodol Injection - [id number] Implanted:Qty: 1 on 09/06/2021 at [facility] [employer] 10/06/2022 [id number] 1 -2 / [id number] / [id number] documented as of this encounter Procedures Procedure Name Priority Date/Time Associated Diagnosis Comments DIABETIC EYE EXAM Routine 11/09/2023 documented in this encounter Results * DIABETIC EYE EXAM (11/09/2023) 11/09/2023 History Per Patient OTHER OUTSIDE LAB (SEE SCANNED REPORT) documented in this encounter Advance Directives Latest [...] Advance Directives occurred with: Patient Care Teams Casting Tester Relationship Specialty Start Date End Date Lia Meadows MD [address] [facility] [address] PCP - General Internal Medicine 04/06/21 documented as of this encounter
--- OUTSIDE RECORDS SUMMARY | 2024-03-23 15:29 | External Medical Summary | Summary of Care ---
Author Name Unknown Organization [facility] Address [address] [place] [address] Phone [phone] Care Team Providers Care Copyright Manager Name Role Phone Lia Meadows MD Primary Care Provider [phone] Reason for Visit * Reason Comments Outpatient Testing Encounter Details Date Type Department Care Team (Late st Contact Info) Description 11/19/2023 12:00 PM EDT Laboratory Laboratory, [facility] [address] [place] [id number] [facility] [address] [place] [address] Stage 3b chronic kidney disease (HCC); Alcoholic cirrhosis of liver with ascites (HCC) Allergies Active Allergy Reactions Criticality Noted Date Comments Sulfa Antibiotics Edema Other Medium 02/01/2016 Other reaction(s): unknown Tramadol Nausea/vomiting 04/01/2021 documented as of this encounter (statuses as of 11/19/2023) Medications Medication Sig Dispensed Refills Start Date End Date Status CoQ10 200 MG Oral Capsule Take 1 Capsule by mouth daily. 0 Active Vitamin D3 50 MCG (1999) Oral Tablet Take 1 Tablet by mouth [...] M type 2, goal HbA1c < 7% ([facility]) Use as directed 4 times a day . Use up to 3-4 times a day as directed 100 Strip 5 11/21/2021 Active BD Pen Needle Zora U/F 32G X 4 MM (Insulin Pen Needle)Indications: Type 2 diabetes mellitus with hemoglobin A1c goal of less than 7.0% ([facility]) Use once daily with insulin 100 Each [...] s:DM type 2, goal HbA1c < 7% ([facility]) INJECT 38 UNITS SUBCUTANEOUSLY DAILY BEFORE BEDTIME 0 09/18/2023 Active Atorvastatin Calcium 40 MG Oral Tablet (Lipitor)Indication s:Hyperlipidemia LDL goal <100 TAKE 1 TABLET BY MOUTH EVERY DAY 90 Tablet 1 09/28/2023 Active Additional Information Patient taking differently: 40 mg Oral Daily(AM), Reported on 10/16/2023 Furosemide 20 MG Oral Tablet (Lasix)Indications: Cirrhosis of liver with ascites, unspecified hepatic cirrhosis type ([facility]) Take 1 Tablet by mouth in the morning. 180 Tablet 1 10/09/2023 Active Metoprolol Succinate ER 100 MG Oral Tablet Extended Release 24 Hour (toPROL XL)Indications:Chyl othorax, right,Coronary artery disease involving [place] coronary artery of [place] heart without angina pectoris,S/P CABG x 3,HFrEF (heart failure with reduced ejection fraction) ([facility]),Ischemic cardiomyopathy,PAF (paroxysmal atrial fibrillation) ([facility]),HTN, goal below 140/90,Dyslipidemia , goal LDL below 70,Cerebrovascular accident (CVA), unspecified mechanism ([facility]) TAKE 1 TABLET BY MOUTH EVERY DAY IN THE MORNING AND BEFORE BEDTIME 180 Tablet 3 10/15/2023 Active Aspirin Low Dose 81 MG Oral Tablet Delayed Release (aspirin enteric coated)Indications: Coronary artery disease involving [place] coronary artery of [place] heart without angina pectoris,Ischemic cardiomyopathy,PAF (paroxysmal atrial fibrillation) ([facility]) TAKE 1 TABLET BY MOUTH EVERY DAY IN THE MORNING 90 Tablet 3 10/15/2023 Active Additional Information Patient taking differently: 81 mg Oral EVERY OTHER DAY, Indications: sunday,wednesdays,fridays, Reported on 10/16/2023 Trulicity 1.5 MG/0.5ML Subcutaneous Solution Pen-injector (Dulaglutide)Indica tions:Type 2 diabetes mellitus with hemoglobin A1c goal of less than 8.0% ([facility]),Type 2 diabetes mellitus with stage 3a chronic kidney disease, unspecified whether mcc insulin use (HCC) INJECT 1 SYRINGE SUBCUTANEOUSLY [...] stage 3b chronic kidney disease, unspecified whether mcc insulin use ([facility]),Type 2 diabetes mellitus with hemoglobin A1c goal of less than 8.0% (HCC),Diabetic peripheral neuropathy ([facility]),Type 2 diabetes mellitus with stage 3a chronic kidney disease, unspecified whether intermediate project manager insulin use ([facility]) Check sugar before meals, at night time and as needed for motoring sugar . Dx -E.11.9 and E11.65 1 Kit 0 11/13/2023 Active documented as of this encounter (statuses as of 11/19/2023) Active Problems Problem Noted Date Diagnosed Date [...] as of this encounter (statuses as of 11/19/2023) Resolved Problems Problem Noted Date Diagnosed Date [...] as of this encounter (statuses as of 11/19/2023) Immunizations Name Administration Dates Next Due COVID-19 [...] Description 11/22/2023 7:45 AM EDT Imaging Radiology [facility] 132 [facility] [place] [address] 11/22/2023 9:00 AM EDT Imaging Radiology [facility] [address] [place] [address] 03/28/2024 8:30 AM EDT Office Visit Cardiology, [facility] [address] [place] [address] Zabrina Britton CRNP [address] [place] [address] 04/09/2024 12:00 PM EDT Office Visit General Internal Medicine [facility] 200 [facility] [place] [address] Lia Meadows MD [address] [place] [address] 05/01/2024 8:15 AM EDT Hospital Encounter ENDO [facility], Endoscopy Room [facility] [address] [place] [phone] Zabrina Ya DO [address] [place] [address] 05/01/2024 8:15 AM EDT - 05/01/2024 8:45 AM EDT Surgery ENDO [facility], Endoscopy Room [facility] [address] [place] [phone] Zabrina Ya DO [address] [place] [address] ESOPHAGOGASTRODUODENOSCOPY (EGD), FLEXIBLE, TRANSORAL, DIAGNOSTIC 05/23/2024 8:40 AM EST Office Visit Hepatology, [facility] [address] [place] [address] Zabrina Ya DO [address] [place] [address] 06/03/2024 2:40 PM EST Office Visit Nephrology, [facility] [address] [place] [address] Breezy Meadows MD [address] [place] [address] Pending Results Name Type Priority Associated Diagnoses Date /Time PTH Lab Routine Stage 3b chronic kidney disease (HCC) 11/19/2023 11:43 AM EDT RENAL FUNCTION PANEL Lab Routine Stage 3b chronic kidney disease (HCC) 11/19/2023 11:43 AM EDT 25-HYDROXY VITAMIN D Lab Routine Stage 3b chronic kidney disease (HCC) 11/19/2023 11:43 AM EDT ALKALINE PHOSPHATASE Lab Routine Alcoholic cirrhosis of liver with ascites (HCC) 11/19/2023 11:43 AM EDT PROTEIN Lab Routine Alcoholic cirrhosis of liver with ascites (HCC) 11/19/2023 11:43 AM EDT AST Lab Routine Alcoholic cirrhosis of liver with ascites (HCC) 11/19/2023 11:43 AM EDT ALT Lab Routine Alcoholic cirrhosis of liver with ascites (HCC) 11/19/2023 11:43 AM EDT BILIRUBIN, DIRECT Lab Routine Alcoholic cirrhosis of liver with ascites (HCC) 11/19/2023 11:43 AM EDT BILIRUBIN, TOTAL Lab Routine Alcoholic cirrhosis of liver with ascites (HCC) 11/19/2023 11:43 AM EDT PROTEIN/ CREATININE RATIO, URINE Lab Routine Stage 3b chronic kidney disease (HCC) 11/19/2023 12:45 PM EDT URINALYSIS WITH MICROSCOPIC EXAM Lab Routine Stage 3b chronic kidney disease (HCC) 11/19/2023 12:45 PM EDT Scheduled Procedures Name Priority Associated Diagnoses Date/Ti me ESOPHAGOGASTRODUODENOSCOPY ( EGD), FLEXIBLE, TRANSORAL, DIAGNOSTIC Alcoholic cirrhosis of liver with ascites (HCC) 05/01/2024 8:15 AM EDT Health Maintenance Due Date Last Done Comments Zoster Vaccines (1 of 2) 1996 Hepatitis B (1 of 3 - Risk 3-dose series) 2006 COVID-19 Vaccine ( season) 2023 05/09/2021, 10/12/2020, 09/22/2020 CKD PHOS USE SMARTSET 29234 09/28/2023 03/2 08/2022, 09/04/2022, 07/26/2022, Additional history exists Depression Screening 12/01/2023 11/30/2022 GFR 02/21/2024 08/23/2023, 12/0 12/2022, 06/04/2023, Additional history exists HbA1c 02/21/2024 08/23/2023, 02/07, 11/30/2022, Additional history exists Diabetic Foot Exam 06/13/2024 06/13/2023, 1 , 05/05/2021 TSH 06/13/2024 06/13/2023, 11/07, 12/07/2021, Additional history exists Albumin/Creatinine Ratio 08/23/2024 024, 07/26/2022, 05/05/2021 Diabetic Eye Exam 11/08/2024 11/09/2023, , 11/08/2022, Additional history exists CKD HGB USE SMARTSET 47292 11/18/202411/18, 11/19/2023, 08/23/2023, Additional history exists DTaP,Tdap,and Td Vaccines (3 [...] this encounter Medical Devices Implanted Type Area Deep Fryer Assembler Device Identifier Shelf Expiration Date Model / Serial / Lot Suture Steel 6 B&S19 M654g - [id number] Implanted:Qty: 7 on 05/30/2021 by Uvaldo Fleming MD at [place] [facility] [place] N/A: Sternum JNJ : [employer] 01/05/2026 M654G / / [id number] Lipiodol Injection - [id number] Implanted:Qty: 2 on 09/06/2021 at [facility] [employer] 10/06/2022 [id number] 1 -2 / [id number] / [id number] Lipiodol Injection - [id number] Implanted:Qty: 1 on 09/06/2021 at [facility] [employer] 10/06/2022 [id number] 1 -2 / [id number] / [id number] documented as of this encounter Procedures Procedure Name Priority Date/Time Associated Diagnosis Comments DIFFERENTIAL, AUTOMATED Routine 11/19/2023 11:43 AM EDT Stage 3b chronic kidney disease (HCC) CBC Routine 11/19/2023 11:43 AM EDT Stage 3b chronic kidney disease (HCC) PT INR Routine 11/19/2023 11:43 AM EDT Alcoholic cirrhosis of liver with ascites (HCC) CBC Routine 11/19/2023 11:43 AM EDT Stage 3b chronic kidney disease (HCC) documented in this encounter Results * (ABNORMAL) DIFFERENTIAL, AUTOMATED (11/19/2023 11:43 AM EDT) WBC 4.80 4.00 - 10.80 K/uL 11/19/2023 12:03 PM EDT [facility] [place] [facility]-10 Neutrophils % 66.3 40.0 - 75.0 % 11/19/2023 12:03 PM EDT [facility] [place] 57-10 Lymphocytes % 18.5 18.0 - 42.0 % 11/19/2023 12:03 PM EDT [facility] [place] 57-10 Monocytes % 12.7(H) 1.0 - 11.0 % 11/19/2023 12:03 PM EDT [facility] [place] 57-10 Eosinophils % 1.7 0.0 - 6.0 % 11/19/2023 12:03 PM EDT [facility] [place] 57-10 Basophils % 0.8 0.0 - 2.0 % 11/19/2023 12:03 PM EDT [facility] [place] 57-10 Absolute Neutrophils 3.18 1.80 - 7.70 K/uL 11/19/2023 12:03 PM EDT [facility] [place] 57-10 Absolute Lymphocytes 0.89(L) 1.00 - 4.80 K/ul 11/19/2023 12:03 PM EDT [facility] 57-10 Absolute Monocytes 0.61 0.00 - 1.10 K/uL 11/19/2023 12:03 PM EDT [facility] [place] 57-10 Absolute Eosinophils 0.08 0.00 - 0.70 K/uL 11/19/2023 12:03 PM EDT [facility] [place] 57-10 Absolute Basophils 0.04 0.00 - 0.20 K/uL 11/19/2023 12:03 PM EDT [facility] [place] 57-10 Blood Venous blood specimen / Unknown Venipuncture / Unknown 11/19/2023 11:43 AM EDT 11/19/2023 11:43 AM EDT Breezy Meadows MD LAB BLOOD ORDERABLES [facility] [place] [facility]-10 [address] [place] [address] * (ABNORMAL) CBC (11/19/2023 11:43 AM EDT) WBC 4.80 4.00 - 10.80 K/uL 11/19/2023 12:03 PM EDT [facility] 57-10 RBC 3.83 4.50 - 5.25 M/uL 11/19/2023 12:03 PM EDT [facility] 57-10 HGB 11.5(L) 14.0 - 16.8 g/dL 11/19/2023 12:03 PM EDT [facility] 57-10 HCT 36.2(L) 40.0 - 48.4 % 11/19/2023 12:03 PM EDT [facility] 57-10 MCV 94.5 82.0 - 99.5 fL 11/19/2023 12:03 PM EDT [facility] [place] 5710 MCH 30.0 27.0 - 34.0 pg 11/19/2023 12:03 PM EDT [facility] [place] 5710 MCHC 31.8 32.0 - 36.0 g/dL 11/19/2023 12:03 PM EDT LABORATORY [address] RDW 14.4 11.5 - 15.5 % 11/19/2023 12:03 PM EDT [facility] [place] PLT 119(L) 140 - 400 K/uL 11/19/2023 12:03 PM EDT [facility] [place] [address] MPV 10.6 6.6 - 11.1 fL 11/19/2023 12:03 PM EDT [facility] [place] 5710 Blood Venous blood specimen / Unknown Venipuncture / Unknown 11/19/2023 11:43 AM EDT 11/19/2023 11:43 AM EDT Breezy Meadows MD LAB BLOOD ORDERABLES [facility] [place] [address] [address] * (ABNORMAL) PT INR (11/19/2023 11:43 AM EDT) Prothrombin Time 20.8(H) 11.6 - 15.2 seconds 11/19/2023 12:20 PM EDT [facility] [place] [facility](H) 0.8 - 1.2 11/19/2023 12:20 PM EDT [facility] [place] [facility] Blood Venous blood specimen / Unknown Venipuncture / Unknown 11/19/2023 11:43 AM EDT 11/19/2023 11:43 AM EDT Narrative [facility] [place] - 11/19/2023 12:20 PM EDT Warfarin Therapy INR: 2.0-3.0 conventional anticoagulation INR: 2.5-3.5 high intensity anticoagulation Zabrina Ya DO LAB BLOOD [facility] [place] [facility]10 [address] [place] [address] documented in this encounter Visit Diagnoses Diagnosis Stage 3b chronic kidney disease (HCC) Alcoholic cirrhosis of liver with ascites (HCC) Alcoholic cirrhosis of liver Alcoholic cirrhosis of liver with ascites (HCC) Alcoholic cirrhosis of liver documented in this encounter Advance Directives Latest [...] Advance Directives occurred with: Patient Care Teams Copyright Manager Relationship Specialty Start Date End Date Lia Meadows MD [address] [place] [address] PCP - General Internal Medicine 04/06/21 documented as of this encounter
--- OUTSIDE RECORDS SUMMARY | 2024-03-23 15:29 | External Medical Summary | Summary of Care ---
Author Name Unknown Organization [facility] Address [address] [place] [address] Phone [phone] Care Team Providers Care Pecan Gatherer Name Role Phone Lia Meadows MD Primary Care Provider [phone] Reason for Visit * Reason Comments Outpatient Testing Encounter Details Date Type Department Care Team (Late st Contact Info) Description 11/19/2023 12:00 PM EDT Laboratory Laboratory, [facility] [address] [place] [id number] [facility] [address] [place] [address] Stage 3b chronic kidney disease [...] type 2, goal HbA1c < 7% ([facility]) Use as directed 4 times a day . Use up to 3-4 times a day as directed 100 Strip 5 11/21/2021 Active BD Pen Needle Zora U/F 32G X 4 MM (Insulin Pen Needle)Indications: Type 2 diabetes mellitus with hemoglobin A1c goal of less than 7.0% ([facility]) Use once daily with insulin 100 Each [...] s:DM type 2, goal HbA1c < 7% ([facility]) INJECT 38 UNITS SUBCUTANEOUSLY DAILY BEFORE BEDTIME 0 09/18/2023 Active Atorvastatin Calcium 40 MG Oral Tablet (Lipitor)Indication s:Hyperlipidemia LDL goal <100 TAKE 1 TABLET BY MOUTH EVERY DAY 90 Tablet 1 09/28/2023 Active Additional Information Patient taking differently: 40 mg Oral Daily(AM), Reported on 10/16/2023 Furosemide 20 MG Oral Tablet (Lasix)Indications: Cirrhosis of liver with ascites, unspecified hepatic cirrhosis type ([facility]) Take 1 Tablet by mouth in the morning. 180 Tablet 1 10/09/2023 Active Metoprolol Succinate ER 100 MG Oral Tablet Extended Release 24 Hour (toPROL XL)Indications:Chyl othorax, right,Coronary artery disease involving [place] coronary artery of [place] heart without angina pectoris,S/P CABG x 3,HFrEF (heart failure with reduced ejection fraction) ([facility]),Ischemic cardiomyopathy,PAF (paroxysmal atrial fibrillation) ([facility]),HTN, goal below 140/90,Dyslipidemia , goal LDL below 70,Cerebrovascular accident (CVA), unspecified mechanism ([facility]) TAKE 1 TABLET BY MOUTH EVERY DAY IN THE MORNING AND BEFORE BEDTIME 180 Tablet 3 10/15/2023 Active Aspirin Low Dose 81 MG Oral Tablet Delayed Release (aspirin enteric coated)Indications: Coronary artery disease involving [place] coronary artery of [place] heart without angina pectoris,Ischemic cardiomyopathy,PAF (paroxysmal atrial fibrillation) ([facility]) TAKE 1 TABLET BY MOUTH EVERY DAY IN THE MORNING 90 Tablet 3 10/15/2023 Active Additional Information Patient taking differently: 81 mg Oral EVERY OTHER DAY, Indications: sunday,wednesdays,fridays, Reported on 10/16/2023 Trulicity 1.5 MG/0.5ML Subcutaneous Solution Pen-injector (Dulaglutide)Indica tions:Type 2 diabetes mellitus with hemoglobin A1c goal of less than 8.0% ([facility]),Type 2 diabetes mellitus with stage 3a chronic kidney disease, unspecified whether group home insulin use (HCC) INJECT 1 SYRINGE SUBCUTANEOUSLY [...] stage 3b chronic kidney disease, unspecified whether group home insulin use ([facility]),Type 2 diabetes mellitus with hemoglobin A1c goal of less than 8.0% (HCC),Diabetic peripheral neuropathy ([facility]),Type 2 diabetes mellitus with stage 3a chronic kidney disease, unspecified whether exterminator helper insulin use ([facility]) Check sugar before meals, at night time [...] Description 11/22/2023 7:45 AM EDT Imaging Radiology [facility] [address] [facility] [place] [address] 11/22/2023 9:00 AM EDT Imaging Radiology [facility] [address] [place] [address] 03/28/2024 8:30 AM EDT Office Visit Cardiology, [facility] [address] [place] [address] Zabrina Britton CRNP [address] [place] [address] 04/09/2024 12:00 PM EDT Office Visit General Internal Medicine [facility] [address] [facility] [place] [address] Lia Meadows MD [address] [place] [address] 05/01/2024 8:15 AM EDT Hospital Encounter ENDO [facility], Endoscopy Room [facility] [address] [place] [phone] Zabrina Ya DO [address] [place] [address] 05/01/2024 8:15 AM EDT - 05/01/2024 8:45 AM EDT Surgery ENDO [facility], Endoscopy Room [facility] [address] [place] [phone] Zabrina Ya DO [address] [place] [address] ESOPHAGOGASTRODUODENOSCOPY (EGD), FLEXIBLE, TRANSORAL, DIAGNOSTIC 05/23/2024 8:40 AM EST Office Visit Hepatology, [facility] [address] [place] [address] Zabrina Ya DO [address] [place] [address] 06/03/2024 2:40 PM EST Office Visit Nephrology, [facility]ots[facility] [address] [place] [address] Breezy Meadows MD [address] [place] [address] Pending Results Name Type Priority Associated Diagnoses Date /Time PTH Lab Routine Stage 3b chronic kidney disease (HCC) 11/19/2023 11:43 AM EDT RENAL FUNCTION PANEL Lab Routine Stage 3b chronic kidney disease (HCC) 11/19/2023 11:43 AM EDT 25-HYDROXY VITAMIN D Lab Routine Stage 3b chronic kidney disease (HCC) 11/19/2023 11:43 AM EDT PT INR Lab Routine Alcoholic cirrhosis of liver with ascites (HCC) 11/19/2023 11:43 AM EDT ALKALINE PHOSPHATASE [...] with ascites (HCC) 11/19/2023 11:43 AM EDT Scheduled Procedures Name Priority Associated Diagnoses Date/Ti me ESOPHAGOGASTRODUODENOSCOPY ( EGD), FLEXIBLE, TRANSORAL, DIAGNOSTIC Alcoholic cirrhosis of liver with ascites (HCC) 05/01/2024 8:15 AM EDT Health Maintenance Due Date Last Done Comments Zoster Vaccines (1 of 2) 1996 Hepatitis B (1 of 3 - Risk 3-dose series) 2006 COVID-19 Vaccine ( season) 2023 05/09/2021, 10/12/2020, 09/22/2020 CKD PHOS USE SMARTSET 16206 09/28/2023 03/2 08/2022, 09/04/2022, 07/26/2022, Additional history [...] Additional history exists CKD HGB USE SMARTSET 24195 11/18/202411/18, 11/19/2023, 08/23/2023, Additional history exists DTaP,Tdap,and [...] this encounter Medical Devices Implanted Type Area Rn On Site Device Identifier Shelf Expiration Date Model / Serial / Lot Suture Steel 6 B&S19 M654g - [id number] Implanted:Qty: 7 on 05/30/2021 by Uvaldo Fleming MD at [place] [facility] [place] N/A: Sternum JNJ : [employer] 01/05/2026 M654G / / [id number] Lipiodol Injection - [id number] Implanted:Qty: 2 on 09/06/2021 at [facility] 10/06/2022 [id number] 1 -2 / [id number] / [id number] Lipiodol Injection - [id number] Implanted:Qty: 1 on 09/06/2021 at [facility] 10/06/2022 [id number] 1 -2 / [id number] / [id number] documented as of this encounter Procedures Procedure [...] 7.70 K/uL 11/19/2023 12:03 PM EDT [facility] Absolute Lymphocytes 0.89(L) 1.00 - 4.80 K/ul 11/19/2023 12:03 PM EDT [facility] Absolute Monocytes 0.61 0.00 - 1.10 K/uL 11/19/2023 12:03 PM EDT [facility] Absolute Eosinophils 0.08 0.00 - 0.70 K/uL 11/19/2023 12:03 PM EDT [facility] Absolute Basophils 0.04 0.00 - 0.20 K/uL 11/19/2023 12:03 PM EDT [facility] Blood Venous blood specimen / Unknown Venipuncture / Unknown 11/19/2023 11:43 AM EDT 11/19/2023 11:43 AM EDT Breezy Meadows MD LAB BLOOD ORDERABLES Performing Organization Address City/State/[facility] Co de Phone Number LAB[facility]ATORY [place] [address] [address] [place] [address] * (ABNORMAL) CBC (11/19/2023 11:43 AM EDT) WBC 4.80 4.00 - 10.80 K/uL 11/19/2023 12:03 PM EDT [facility] RBC 3.83 4.50 - 5.25 M/uL 11/19/2023 12:03 PM EDT [facility] [place] [facility] HGB 11.5(L) 14.0 - 16.8 g/dL 11/19/2023 12:03 PM EDT [facility] HCT 36.2(L) 40.0 - 48.4 % 11/19/2023 12:03 PM EDT [facility] MCV 94.5 82.0 - 99.5 fL 11/19/2023 12:03 PM EDT [facility] [place] [address] MCH 30.0 27.0 - 34.0 pg 11/19/2023 12:03 PM EDT LAB[facility]ATORY [place] 57-10 MCHC 31.8 32.0 - 36.0 g/dL 11/19/2023 12:03 PM EDT LAB[facility]ATORY [place] 57-10 RDW 14.4 11.5 - 15.5 % 11/19/2023 12:03 PM EDT LABORATORY [place] 57-10 PLT 119(L) 140 - 400 K/uL 11/19/2023 12:03 PM EDT LAB[facility]ATORY [place] 57-10 MPV 10.6 6.6 - 11.1 fL 11/19/2023 12:03 PM EDT LAB[facility]ATORY [place] 57-10 Blood Venous blood specimen / Unknown Venipuncture / Unknown 11/19/2023 11:43 AM EDT 11/19/2023 11:43 AM EDT Breezy Meadows MD LAB BLOOD ORDERABLES [facility] [place] [facility] [place] [address] documented in this encounter Visit Diagnoses Diagnosis [...] Advance Directives occurred with: Patient Care Teams Pecan Gatherer Relationship Specialty Start Date End Date Lia Meadows MD [address] [place] [address] PCP - General Internal Medicine 04/06/21 documented as of this encounter
--- OUTSIDE RECORDS SUMMARY | 2024-03-23 15:29 | External Medical Summary ---
Author Name Unknown Address Unknown Organization [id number]:LABORATORY [facility] [address] - [address] [place] [address] Laboratory Report Ordering Provider Test Date Status MAGUI WHITEHEAD 11/19/2023 11:43:11 Final Observation Date Value Abnormality Reference (Units ) Status WBC, Total 11/19/2023 11:43:11 4.80 4.00-10.8 0 (K/uL) Final RBC 11/19/2023 11:43:11 3.83 4.50-5.25 (M/uL) Final Hemoglobin 11/19/2023 11:43:11 11.5 Below low normal 14 .0-16.8 (g/dL) Final HCT 11/19/2023 11:43:11 36.2 Below low normal 40. 0-48.4 (%) Final MCV 11/19/2023 11:43:11 94.5 82.0-99.5 (fL) Final MCH 11/19/2023 11:43:11 30.0 27.0-34.0 (pg) Final MCHC 11/19/2023 11:43:11 31.8 32.0-36.0 (g/dL) Final RDW 11/19/2023 11:43:11 14.4 11.5-15.5 (%) Final Platelets 11/19/2023 11:43:11 119 Below low normal 140 -400 (K/uL) Final MPV 11/19/2023 11:43:11 10.6 6.6-11.1 ( fL) Final Performing Location LABORATORY [facility] 57-[address] 0 - [address] [place] [address]
--- OUTSIDE RECORDS SUMMARY | 2024-03-23 15:29 | External Medical Summary | Summary of Care ---
Author Name Unknown Organization [facility] Address [address] [place] [address] Phone [phone] Care Team Providers Care Soil And Plant Scientist Name Role Phone Lia Meadows MD Primary Care Provider [phone] Reason for Visit * Reason Comments eRx-Medication Refill Encounter Details Date Type Department Care Team (Late st Contact Info) Description 01/18/2024 Refill General Internal Medicine [facility] [place] 200 [facility] [place] [address] Lia Meadows MD 200 [facility] [place] [address] Type 2 diabetes mellitus with hemoglobin A1c goal of less than 8.0% ([facility]); Type 2 diabetes mellitus with stage 3a chronic kidney disease, unspecified whether termite control service representative insulin use ([facility]) Allergies Active Allergy Reactions Criticality Noted Date Comments Sulfa Antibiotics Edema Other Medium 02/01/2016 Other reaction(s): unknown Tramadol Nausea/vomiting 04/01/2021 documented as of this encounter (statuses as of 01/20/2024) Medications Medication Sig Dispensed Refills Start Date End Date Status CoQ10 200 MG Oral Capsule Take 1 Capsule by mouth daily. Active Vitamin D3 50 MCG (1999 UT) [...] 5 minutes as needed for Pain, Chest. 06/04/2021 Active Ondansetron HCl 4 MG Oral TabletIndications:N ausea Take by mouth 1 Tablet every 8 hours as needed for Nausea. 30 Tablet 11/21/2021 Active OneTouch Ultra Blue In Vitro Strip (Glucose Blood)Indications:D M type 2, goal HbA1c < 7% (HCC) Use as directed 4 times a day . Use up to 3-4 times a day as directed 100 Strip 5 11/21/2021 Active BD Pen Needle Zora U/F 32G X 4 MM (Insulin Pen Needle)Indications: Type 2 diabetes mellitus with hemoglobin A1c goal of less than 7.0% ([facility]) Use once daily with insulin 100 Each 5 03/20/2022 Active Finasteride 5 MG Oral Tablet (Proscar) Take 1 Tablet by mouth in the morning. 12/19/2022 Active Tamsulosin HCl 0.4 MG Oral Capsule (Flomax) Take 1 Capsule by mouth in the morning. 12/19/2022 Active Spironolactone 50 MG Oral Tablet [...] and hold for 1 day if diarrhea. 06/13/2023 Active Gabapentin 100 MG Oral Capsule [...] s:DM type 2, goal HbA1c < 7% ([facility]) INJECT 38 UNITS SUBCUTANEOUSLY DAILY BEFORE BEDTIME 09/18/2023 Active Atorvastatin Calcium 40 MG Oral Tablet (Lipitor)Indication s:Hyperlipidemia LDL goal <100 TAKE 1 TABLET BY MOUTH EVERY DAY 90 Tablet 1 09/28/2023 Active Additional Information Patient taking differently: 40 mg Oral Daily(AM), Reported on 10/16/2023 Furosemide 20 MG Oral Tablet (Lasix)Indications: Cirrhosis of liver with ascites, unspecified hepatic cirrhosis type ([facility]) Take 1 Tablet by mouth in the morning. 180 Tablet 1 10/09/2023 Active Metoprolol Succinate ER 100 MG Oral Tablet Extended Release 24 Hour (toPROL XL)Indications:Chyl othorax, right,Coronary artery disease involving [place] coronary artery of [place] heart without angina pectoris,S/P CABG x 3,HFrEF (heart failure with reduced ejection fraction) ([facility]),Ischemic cardiomyopathy,PAF (paroxysmal atrial fibrillation) ([facility]),HTN, goal below 140/90,Dyslipidemia , goal LDL below 70,Cerebrovascular accident (CVA), unspecified mechanism ([facility]) TAKE 1 TABLET BY MOUTH EVERY DAY IN THE MORNING AND BEFORE BEDTIME 180 Tablet 3 10/15/2023 Active Aspirin Low Dose 81 MG Oral Tablet Delayed Release (aspirin enteric coated)Indications: Coronary artery disease involving [place] coronary artery of [place] heart without angina pectoris,Ischemic cardiomyopathy,PAF (paroxysmal atrial fibrillation) ([facility]) TAKE 1 TABLET BY MOUTH EVERY DAY IN THE MORNING 90 Tablet 3 10/15/2023 Active Additional Information Patient taking differently: 81 mg Oral EVERY OTHER DAY, Indications: sunday,wednesdays,fridays, Reported on 10/16/2023 Trulicity 1.5 MG/0.5ML Subcutaneous Solution Pen-injector (Dulaglutide)Indica tions:Type 2 diabetes mellitus with hemoglobin A1c goal of less than 8.0% ([facility]),Type 2 diabetes mellitus with stage 3a chronic kidney disease, unspecified whether termite control service representative insulin use ([facility]) INJECT 1 SYRINGE SUBCUTANEOUSLY ONCE A [...] kidney disease, unspecified whether mcc insulin use (HCC),Type 2 diabetes mellitus with hemoglobin A1c goal of less than 8.0% (HCC),Diabetic peripheral neuropathy (HCC),Type 2 diabetes mellitus with stage 3a chronic kidney disease, unspecified whether termite control service representative insulin use (HCC) Check sugar before meals, at night time and as needed for motoring sugar . Dx -E.11.9 and E11.65 1 Kit 11/13/2023 Active Levothyroxine Sodium 88 MCG Oral Tablet (Levoxyl)Indication s:Acquired hypothyroidism TAKE 1 TABLET BY MOUTH IN THE MORNING AT LEAST 30 MINUTES PRIOR TO BREAKFAST AND OTHER MEDS 90 Tablet 1 12/26/2023 Active documented as of this encounter (statuses as of 01/20/2024) Active Problems Problem Noted Date Diagnosed Date [...] as of this encounter (statuses as of 01/20/2024) Resolved Problems Problem Noted Date Diagnosed Date [...] as of this encounter (statuses as of 01/20/2024) Immunizations Name Administration Dates Next Due COVID-19 [...] encounter Miscellaneous Notes * Telephone Encounter - Zack Blair RPh - 01/20/2024 2:42 PM EDT Refused Prescriptions: Disp Refills Trulicity 1.5 MG/0.5ML Subcutaneous Soluti*12 mL 0 Sig: INJECT 1 SYRINGE SUBCUTANEOUSLY ONCE A WEEKRefused By: ZACK BLAIR for Refusal: Too soon----- documented in this encounter Plan of Treatment Upcoming Encounters Date Type Department Care Team (Latest Contact Info) Description 03/28/2024 8:30 AM EDT Office Visit Cardiology, [facility] [address] [place] [address] Zabrina Britton CRNP [address] [place] [address] 04/09/2024 12:00 PM EDT Office Visit General Internal Medicine [facility] [place] [address] [place] [address] Lia Meadows MD [address] [place] [address] 05/01/2024 8:15 AM EDT Hospital Encounter ENDO [facility], Endoscopy Room [facility] [address] [place] [phone] Zabrina Ya, DO [address] [place] [address] 05/01/2024 8:15 AM EDT - 05/01/2024 8:45 AM EDT Surgery ENDO [facility], Endoscopy Room [facility] [address] [place] [address] Zabrina Ya, DO [address] [place] [address] ESOPHAGOGASTRODUODENOSCOPY (EGD), FLEXIBLE, TRANSORAL, DIAGNOSTIC 05/23/2024 8:40 AM EST Office Visit Hepatology, [facility] [address] [place] [address] Zabrina Ya DO [address] [place] [address] 06/03/2024 2:40 PM EST Office Visit Nephrology, [facility] [address] [facility] [place] [address] Breezy Meadows MD [address] [facility] [place] [address] Scheduled Procedures Name Priority Associated Diagnoses Date/Ti [...] Additional history exists CKD HGB USE SMARTSET 64975 11/18/202411/18, 11/19/2023, 08/23/2023, Additional history exists CKD PHOS USE SMARTSET 75781 11/18/202411/06, 09/27/2022, 09/04/2022, Additional history exists DTaP,Tdap,and [...] this encounter Medical Devices Implanted Type Area Tool Shaper Set Up Operator Device Identifier Shelf Expiration Date Model / Serial / Lot Suture Steel 6 B&S19 M654g - [id number] Implanted:Qty: 7 on 05/30/2021 by Uvaldo Fleming MD [place] [facility] [place]/A: Sternum JNJ : [employer] 01/05/2026 M654G / / [id number] Lipiodol Injection - [id number] Implanted:Qty: 2 on 09/06/2021 at [facility] [employer] 10/06/2022 [id number] 1 -2 / [id number] Lipiodol Injection - [id number] Implanted:Qty: 1 on 09/06/2021 at [facility] [employer] 10/06/2022 [id number] 1 -2 / [id number] / [id number] documented as of this encounter Visit Diagnoses Diagnosis Type 2 diabetes mellitus with stage 3a chronic kidney disease, unspecified whether mcc insulin use (HCC) Alcoholic cirrhosis of liver [...] Advance Directives occurred with: Patient Care Teams Soil And Plant Scientist Relationship Specialty Start Date End Date Lia Meadows MD [address] [place] [address] PCP - General Internal Medicine 04/06/21 documented as of this encounter
--- OUTSIDE RECORDS SUMMARY | 2024-03-23 15:29 | External Medical Summary ---
Author Name Unknown Address Unknown Organization K01:LABORATORY [facility] [place] - [address] [place] [address] Laboratory Report Ordering Provider Test Date Status MAGUI WHITEHEAD 11/19/2023 12:45:59 Final Normal: <150 mg/ g creatinine
High: 150-500 mg/g creatinine
Very High: >500 mg/g creatinine
Nephrotic: >3000 mg/g creatinine Observation Date Value Abnormality Reference (Units ) Status Protein/Creatinine [Ratio] in Urine 11/19/2023 12:45:59 156 Above high normal <150 (mg/g ) Final Protein, Urine 11/19/2023 12:45:59 7 (mg/dL) Final Creatinine, Urine 11/19/2023 12:45:59 45 (mg/dL) Final Performing Location LABORATORY [facility] [place] - [address] [place] [address]
--- OUTSIDE RECORDS SUMMARY | 2024-03-23 15:29 | External Medical Summary | Summary of Care ---
Author Name Unknown Organization [facility] Address [address] [facility] [place] [address] Phone [phone] Care Team Providers Care Manufacturing Shift Supervisor Name Role Phone Lia Meadows MD Primary Care Provider Reason for Visit * Reason Comments Follow Up F/U for cirrhosis. P t states he is having abd distention with abd and chest discomfort and a 10 pound weight gain. Experiencing SOB at times. Encounter Details Date Type Department Care Team (Late st Contact Info) Description 11/19/2023 10:40 AM EDT Office Visit Hepatology, [facility] [address] [place] [address] Zabrina Ya DO [address] [place] [place] [address] Alcoholic cirrhosis of liver with ascites (HCC)* Allergies Active Allergy Reactions Criticality Noted Date [...] M type 2, goal HbA1c < 7% ([facility]) Use as directed 4 times a day . Use up to 3-4 times a day as directed 100 Strip 5 11/21/2021 Active BD Pen Needle Zora U/F 32G X 4 MM (Insulin Pen Needle)Indications: Type 2 diabetes mellitus with hemoglobin A1c goal of less than 7.0% ([facility]) Use once daily with insulin 100 [...] s:DM type 2, goal HbA1c < 7% ([facility]) INJECT 38 UNITS SUBCUTANEOUSLY DAILY BEFORE BEDTIME 0 09/18/2023 Active Atorvastatin Calcium 40 MG Oral Tablet (Lipitor)Indication s:Hyperlipidemia LDL goal <100 TAKE 1 TABLET BY MOUTH EVERY DAY 90 Tablet 1 09/28/2023 Active Additional Information Patient taking differently: 40 mg Oral Daily(AM), Reported on 10/16/2023 Furosemide 20 MG Oral Tablet (Lasix)Indications: Cirrhosis of liver with ascites, unspecified hepatic cirrhosis type ([facility]) Take 1 Tablet by mouth in the morning. 180 Tablet 1 10/09/2023 Active Metoprolol Succinate ER 100 MG Oral Tablet Extended Release 24 Hour (toPROL XL)Indications:Chyl othorax, right,Coronary artery disease involving seneca-cayuga coronary artery of seneca-cayuga heart without angina pectoris,S/P CABG x 3,HFrEF (heart failure with reduced ejection fraction) ([facility]),Ischemic cardiomyopathy,PAF (paroxysmal atrial fibrillation) ([facility]),HTN, goal below 140/90,Dyslipidemia , goal LDL below 70,Cerebrovascular accident (CVA), unspecified mechanism ([facility]) TAKE 1 TABLET BY MOUTH EVERY DAY IN THE MORNING AND BEFORE BEDTIME 180 Tablet 3 10/15/2023 Active Aspirin Low Dose 81 MG Oral Tablet Delayed Release (aspirin enteric coated)Indications: Coronary artery disease involving seneca-cayuga coronary artery of seneca-cayuga heart without angina pectoris,Ischemic cardiomyopathy,PAF (paroxysmal atrial fibrillation) ([facility]) TAKE 1 TABLET BY MOUTH EVERY DAY IN THE MORNING 90 Tablet 3 10/15/2023 Active Additional Information Patient taking differently: 81 mg Oral EVERY OTHER DAY, Indications: sunday,wednesdays,fridays, Reported on 10/16/2023 Trulicity 1.5 MG/0.5ML Subcutaneous Solution Pen-injector (Dulaglutide)Indica tions:Type 2 diabetes mellitus with hemoglobin A1c goal of less than 8.0% (HCC),Type 2 diabetes mellitus with stage 3a chronic kidney disease, unspecified whether fdc insulin use (HCC) INJECT 1 SYRINGE SUBCUTANEOUSLY [...] stage 3b chronic kidney disease, unspecified whether long lines operator insulin use ([facility]),Type 2 diabetes mellitus with hemoglobin A1c goal of less than 8.0% (HCC),Diabetic peripheral neuropathy ([facility]),Type 2 diabetes mellitus with stage 3a chronic kidney disease, unspecified whether long lines operator insulin use ([facility]) Check sugar before meals, at night [...] Sign Reading Time Taken Comments Blood Pressure 132/60 11/19/2023 10:38 AM EDT Pulse 81 11/19/2023 10:38 AM EDT Temperature 36.7 C (98.1 F) 11/19/2023 10:38 AM E DT Respiratory Rate - - Oxygen Saturation 100% 11/19/2023 10:38 AM EDT Inhaled Oxygen Concentration - - Weight 78.5 kg (173 lb) 11/19/2023 10:38 AM EDT Height - - Body Mass Index 24.82 11/13/2023 9:54 AM EDT documented in this [...] as of this encounter Progress Notes * Zabrina Ya, DO - 11/19/2023 10:42 AM EDT Hepatology Clinic Note Date of appointment: 11/19/2023 Referred by: History of Present Illness: Norris Francois is a 78 year old M with 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 He was initiallydiagnosed with cirrhosis in september 2021 after he presented to [facility] and found to have ascites. Patient states he did not know about the cirrhosis until September. He states that in the past he woulddrink scotch or beer nightly. Would drink about 12 ounces of scotch at night and sometimes 2 of them. He drank heavily for many years and quit completely about 25 years ago. No history of any drug use. He did use to smoke but quit. Most recent MELD-Na is 12. He had recurrent left pleural effusion s/p thoracocentesis with cultures that grew actinomyces and was on amoxicillin but developed DELIA and pancytopenia and was switched to doxycycline .He was diagnosed with cirrhosis and is s/p paracentesis but also complains of reflux which ID thought could be related to the doxycycline. He completed the course of abx. He presents today to discuss increasing abdominal distention and shortness of breath. He states he has gained 10 lbs in the past month. He is up 10 lbs since I saw him in August. His last paracentesis was 1 year ago. He is taking lasix 20 mg daily and spironolactone 50 mg daily. He states he has not been compliant following a low salt diet. He doesn't add salt but he still eats salty foods and eats whatever is around. He also states he has some shortness of breath with activity. Getting a shower in the morning and getting dressed gets him short of breath but after he sits for 20 minutes he feels ok. Enies any signs fo GI bleeding, jaundice, confusion. Decompensations: Varices: yes Ascites: yes SBP: no HRS: no HE: no HCC: no Screening: EGD: 09/2023- large EV banded. 10/2023- small EV and scarring from prior treatment Colonoscopy: over 10 years ago Liver imagin06/2023- no liver lesions Review of systems: Positives in HPI. Past Medical History: Diagnosis Date Diabetic peripheral neuropathy (HCC) 03/01/2023 DM type 2, goal HbA1c < 7% (HCC) 1994 HTN, goal below 140/90 Hyperlipidemia LDL goal <100 Hypothyroid Rotator cuff tear Past Surgical History: Procedure Laterality Date CABG, ARTERIAL, SINGLE N/A 05/30/2021 CORONARY ARTERY BYPASS GRAFT USING ARTERY 1 GRAFT performed [place] Uvaldo Fleming MD [place] [facility] CABG, ARTERY-VEIN, TWO 05/30/2021 CORONARY ARTERY BYPASS GRAFT ARTERIAL AND VENOUS 2 GRAFTS performed by Uvaldo Fleming MD [place] [facility] CORONARY ANGIOGRAPHY W/LEFT HEART CATH Right 05/27/2021 CORONARY ANGIOGRAPHY W/LEFT HEART CATH performed by Jaime Munoz MD at [place] [facility] EGD, FLEXIBLE, DIAGNOSTIC 06/27/2022 normal scope, 3-4 columns grade I varices , z-line found 40cm from incisors Hill Class II / no specimens collected / ESOPHAGOGASTRODUODENOSCOPY (EGD), FLEXIBLE, TRANSORAL, DIAGNOSTIC performed by Evy Hylton MD at [place]OSCOPY [facility] EGD, FLEXIBLE, DIAGNOSTIC 07/16/2023 ESOPHAGOGASTRODUODENOSCOPY (EGD), FLEXIBLE, TRANSORAL, DIAGNOSTIC performed by Eden Hylton MD at ENDOSCOPY [facility] EGD, FLEXIBLE, DIAGNOSTIC N/A 10/23/2023 ESOPHAGOGASTRODUODENOSCOPY (EGD), FLEXIBLE, TRANSORAL, DIAGNOSTIC performed by Zabrina Ya DO at ENDOSCOPY [facility] ENDO,VIDEO ASSIST HARVEST BRITTANY 05/30/2021 ENDOSCOPY VIDEO ASSISTED HARVEST VEIN performed by Uvaldo Fleming MD [place] [facility] INCISION OF HEART SAC FOR DRAINAGE N/A 11/10/2021 CREATION PERICARDIAL WINDOW performed by Uvaldo Fleming MD [place] [facility] IR ARTERIAL EMBOLIZATION 09/06/2021 IR CHEST TUBE 09/08/2021 THORACOSCOPY, DIAGNOSTIC, LUNGS N/A 08/01/2021 THORACOSCOPY DIAGNOSTIC WITHOUT BIOPSY performed by Uvaldo Fleming MD [place] [facility] No family history on file. Current Outpatient Medications Medication Sig Dispense Refill OneTouch Ultra Blue In Vitro Strip (Glucose Blood) Use as directed 4 times a day . Use up to 3-4 times a day as directed 100 Strip 5 BD Pen Needle Zora U/F 32G X 4 MM (Insulin Pen Needle) Use once daily with insulin 100 Each 5 Levothyroxine Sodium 88 MCG Oral Tablet (Levoxyl) TAKE 1 TABLET BY MOUTH IN THE MORNING AT LEAST 30MINUTES PRIOR TO BREAKFAST AND OTHER MEDS 90 Tablet 3 Spironolactone 50 MG Oral Tablet (Aldactone) Take 1 Tablet by mouth in the morning. (Patient takingdifferently: Take 1 Tablet by mouth daily.) 90 Tablet 4 Gabapentin 100 MG Oral Capsule (Neurontin) Take 2 Capsules by mouth at bedtime. 180 Capsule 3 Eliquis 5 MG Oral Tablet (Apixaban) TAKE 1 TABLET BY MOUTH IN THE MORNING AND BEFORE BEDTIME 180 Tablet 3 Insulin Glargine Solostar 100 UNIT/ML Subcutaneous Solution Pen-injector (Lantus SoloStar) INJECT 38 UNITS SUBCUTANEOUSLY DAILY BEFORE BEDTIME Atorvastatin Calcium 40 MG Oral Tablet (Lipitor) TAKE 1 TABLET BY MOUTH EVERY DAY (Patient taking differently: Take 1 Tablet by mouth in the morning.) 90 Tablet 1 Furosemide 20 MG Oral Tablet (Lasix) Take 1 Tablet by mouth in the morning. 180 Tablet 1 Metoprolol Succinate ER 100 MG Oral Tablet Extended Release 24 Hour (toPROL XL) TAKE 1 TABLET BY MOUTH EVERY DAY IN THE MORNING AND BEFORE BEDTIME 180 Tablet 3 Aspirin Low Dose 81 MG Oral Tablet Delayed Release (aspirin enteric coated) TAKE 1 TABLET BY MOUTH EVERY DAY IN THE MORNING (Patient taking differently: Take 1 Tablet by mouth every other day.) 90 Tablet 3 Trulicity 1.5 MG/0.5ML Subcutaneous Solution Pen-injector (Dulaglutide) INJECT 1 SYRINGE SUBCUTANEOUSLY ONCE A WEEK 6 mL 3 Lactulose 10 GM/15ML Oral Solution (Constulose) Take 15 mL by mouth in the morning and 15 mL beforebedtime. Can add 2 more doses if severe constipation. 237 mL 3 Blood Glucose Monitoring Suppl w/Device Kit Check sugar before meals, at night time and as needed for motoring sugar . Dx -E.11.9 and E11.65 1 Kit 0 CoQ10 200 MG Oral Capsule Take 1 Capsule by mouth daily. (Patient not taking: Reported on 11/19/2023) Vitamin D3 50 MCG (2000 UT) Oral Tablet Take 1 Tablet by mouth in the morning. (Patient not taking:Reported on 11/19/2023) Vitamin C 500 MG Oral Tablet (Ascorbic Acid) Take 1 Tablet by mouth in the morning. (Patient not taking: Reported on 11/19/2023) Ferrous Sulfate 325 (65 Fe) MG Oral Tablet (Feosol) Take 1 Tablet by mouth daily with dinner. (Patient not taking: Reported on 11/19/2023) 60 Tablet 11 Nitroglycerin 0.4 MG Sublingual Tablet Sublingual (Nitrostat) Place 1 Tablet under the tongue every5 minutes as needed for Pain, Chest. (Patient not taking: Reported on 11/19/2023) Ondansetron HCl 4 MG Oral Tablet Take by mouth 1 Tablet every 8 hours as needed for Nausea. 30 Tablet 0 Finasteride 5 MG Oral Tablet (Proscar) Take 1 Tablet by mouth in the morning. (Patient not taking: Reported on 11/19/2023) Tamsulosin HCl 0.4 MG Oral Capsule (Flomax) Take 1 Capsule by mouth in the morning. (Patient not taking: Reported on 11/19/2023) Senna 8.6 MG Oral Capsule Take 1 Capsule by mouth in the morning. Add second tab if constipation and hold for 1 day if diarrhea. (Patient not taking: Reported on 11/19/2023) Docusate Sodium 100 MG Oral Capsule (Colace) TAKE 1 CAPSULE BY MOUTH EVERY EVENING. INCREASE TO TWICE A DAY FOR CONSTIPATION AND NO TAB WHEN DIARRHEA (Patient not taking: Reported on 11/19/2023) 60 Capsule 11 No current facility-administered medications for this visit. Review of patient's allergies indicates: Allergen Reactions Sulfa Antibiotics Edema Other Other reaction(s): unknown Tramadol Nausea/vomiting Physical Exam: vitals: BP 132/60 (BP Site: Right Arm, BP Position: Sitting, BP Cuff Size: Regular) | Pulse 81 | Temp 36.7 C (98.1 F) | Wt 78.5 kg (173 lb) | SpO2 100% | BMI 24.82 kg/m | BSA 1.97 m GENERAL: Thin male in no acute distress. Notable sarcopenia with some temporal muscle wasting. Appears frail. SKIN: No rashes, ulcers, jaundice or spider angiomata. HEENT: Normocephalic, sclera anicteric NECK: Supple LUNGS: Diminished at the bases bilaterally but good breath sounds otherwise, no respiratory distress or accessory muscles used. HEART: Regular rate & rhythm, no murmurs, rubs, or gallops present ABDOMEN: Normal bowel sounds, soft and nontender, no masses. Small to moderate ascites appreciated but he is not tense and abdomen is still very soft. EXTREMITIES: No palmar erythema, no lower extremity edema. NEURO: No lateralizing findings. Sensory/Motor grossly normal. No asterixis present on exam. Recent Labs: Reviewed MELD 3.0: 14 at 08/23/2023 9:48 AM Calculated from: Serum Creatinine: 1.7 mg/dL at 08/23/2023 9:48 AM Serum Sodium: 142 mmol/L (Using max of 137 mmol/L) at 08/23/2023 9:48 AM Total Bilirubin: 0.7 mg/dL (Using min of 1 mg/dL) at 08/23/2023 9:48 AM Serum Albumin: 4.4 g/dL (Using max of 3.5 g/dL) at 08/23/2023 9:48 AM INR(ratio): 1.3 at 08/23/2023 9:48 AM Age at listing (hypothetical): 77 years Sex: Male at 08/23/2023 9:48 AM Recent Imaging Studies: Reviewed Abdominal US 06/2023: IMPRESSION No cirrhosis. Abdominal US 12/2022: IMPRESSION 1. No sonographic evidence of intrahepatic mass. 2. Hepatic cirrhosis and portal hypertension, as evidenced by splenomegaly and moderate ascites. 3. Right renal cyst. 4. Cholecystectomy. Abdominal US 08/04/2022: IMPRESSION IMPRESSION: No acute abnormality. Fluoro esophageal 01/31/2022: IMPRESSION: Cricopharyngeal bar and penetration into laryngeal ventricle. Thoracic esophageal dysmotility. CT neck 12/27/2021: IMPRESSION: Calcified lymph nodes in the lower neck and upper mediastinum Calcified lymph node versus possible thyroid nodule below the left thyroid lobe. This could be further evaluated with ultrasound on a non emergency basis. Otherwise unremarkable CT of neck. Recent Endoscopic Procedures: Reviewed EGD 10/23/2023: Impression: - Z-line regular, 38 cm from the incisors. - Small (< 5 mm) esophageal varices with no bleeding and no stigmata of recent bleeding. Scarring seen from prior banding. - Portal hypertensive gastropathy. - Normal duodenal bulb and second portion of the duodenum. - No specimens collected. EGD 09/13/2023: iMPRESSION: - Z-line regular, 41 cm from the incisors. - Large (> 5 mm) esophageal varices with no bleeding and no stigmata of recent bleeding. There werered cristofer signs present. Incompletely eradicated. Banded x3 with good defalation of variceal columns. - Portal hypertensive gastropathy. - A medium amount of food (residue) in the stomach. - Normal duodenal bulb and EGD 07/16/2023: Impression: - Grade II esophageal varices with no stigmata of recent bleeding. - No portal gastropathy or gastric varices. - Rugal atrophy that may be consistent with pernicious anemia. EGD 06/2022: Findings & Specimens: The UES was unremarkable; I did not see a bar nor did I appreciate resistance in this area. There were 3-4 columns of Grade 1 varices in the distal esophagus. Z-line was found 40 cm from the incisors. Hill class 2. The stomach and duodenum were normal. A guidewire was placed and the scope was withdrawn. Dilation was performed at the cricopharyngeus with a Savary dilator with no resistance at 18 mm. The dilator was passed only into the proximal esophagus. 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 He was initially diagnosed with cirrhosis in september after he presented to [facility] and found to have ascites. -Liver disease severity. Pt.'s last MELD was 14. We will get MELD labs today. His cirrhosis is likely due to alcohol given history of alcohol abuse though he certainly has risk factors for HUSSEIN as well. He has been sober for the past 25 years. -Variceal screening: EGD in 07/2023 with large EV. EGD 09/2023 with large EV banded x3. Repeat EGD 10/2023 with small EV. Repeat again in 6 months 04/2024 for surveillance which was ordered today. -Fluid status: based on today's physical exam, the pt. Has no pedal edema and small to moderate ascites appreciated but he is not tense and abdomen is still very soft. He has only required 2 paracentesis in the past last one was 1 year ago. He is on lasix 20 mg daily and aldactone 50 mg daily. Willobtain an abdominal US to assess for presence of large ascites and if large will set up a paracentesis. I also recommend 2 gram sodium diet. Discussed importance of reading all food labels. -Hepatic encephalopathy: based on today's examination, the pt. does not have asterixis. He has no history of HE. -Renal function: pt.'s most recent SCr was 1.7. He is following with nephrology. -HCC screening. Pt.'s last liver imaging study was done 06/2023. Pt will need HCC screening every 6months with imaging in conjunction with an AFP. Next US due 12/2023 which was ordered today to be completed now given his concerns of ascites/abdominal distention. -Avoid liver toxins including over the counter herbal supplements. May take Acetaminophen up to 2 grams a day. Avoid NSAIDS due to increased risk of GI bleeding and fluid retention. Avoid all alcohol. Patient encouraged to avoid benzodiazepines and opiate pain medications due to risk of precipitating HE.- Transplant evaluation: Given age and other medical co-morbidities patient is not a transplantcandidate. -Colorectal cancer screening: last colonoscopy over 10 years ago. He has had a 20 lb weight loss and has notable sarcopenia on exam. I encouraged a colonoscopy to screen for colon malignancy but he states given his poor intake there is absolutely no way he can undergo a colonoscopy and he is not interested at this time even if he were to have a colon cancer. -Debility/sarcopenia: boost/ensure three times daily. GI nutrition referral placed previously. -Given his dyspnea in the AM at home he reports and history of L recurrent pleural effusion requiring thoracentesis will obtain a CXR. -Follow up in 4 months Zabrina Ya DO Gastroenterology and Hepatology I spent a total of 35 minutes on the date of service in review of patient's record, and previously obtained information in person and appropriate medical visit, discussion and education of plan, withpatient and/or caregiver, placing orders for tests/referral/procedures as medically necessary and documentation of pertinent clinical information in patient's medical records for their visit today. documented in this encounter Nursing Notes * Concepcion Lucia CMA - 11/19/2023 10:37 AM EDT Chief Complaint Patient presents with Follow Up F/U for cirrhosis. Pt states he is having abd distention with abd and chest discomfort and a 10 pound weight gain. Experiencing SOB at times. documented in this encounter Plan of Treatment Upcoming Encounters Date Type Department Care Team (Latest Contact Info) Description 11/22/2023 7:45 AM EDT Imaging Radiology [facility] [address] [place] [id number] 11/22/2023 9:00 AM EDT Imaging Radiology [facility] 1st Floor, [place] [address] [place] [id number] 03/28/2024 8:30 AM EDT Office Visit Cardiology, [facility] [address] [place] [address] Zabrina Britton CRNP [address] [place] [address] 04/09/2024 12:00 PM EDT Office Visit General Internal Medicine [facility] [address] [facility] [place], [place] [address] Lia Meadows MD [address] [facility] [place], [place] [address] 05/01/2024 8:15 AM EDT Hospital Encounter ENDO [facility], Endoscopy Room [facility] [address] [place] [phone] Zabrina Ya, DO [address] [place], [place] [address] 05/01/2024 8:15 AM EDT - 05/01/2024 8:45 AM EDT Surgery ENDO [facility], Endoscopy Room [facility] [address] [place], [place] [id number] Zabrina Ya, [address] [place], [place] [address] ESOPHAGOGASTRODUODENOSCOPY (EGD), FLEXIBLE, TRANSORAL, DIAGNOSTIC 05/23/2024 8:40 AM EST Office Visit Hepatology, [facility] [address] [place], [place] [address] Zabrina Ya, DO [address] [place], [place] [address] 06/03/2024 2:40 PM EST Office Visit Nephrology, [facility] [address] [facility] [place], [place] [address] Breezy Meadows MD [address] [facility] [place] [address] Scheduled Orders Name Type Priority Associated Diagnoses Orde r Schedule US ABDOMEN LIMITED Medical Imaging Routine Alcoholic cirrhosis of liver with ascites (HCC) Expected: 11/19/2023, Expires: 12/19/2024 XR CHEST 2 VIEWS Medical Imaging Routine Alcoholic cirrhosis of liver with ascites (HCC) Ordered: 11/19/2023 HEPATIC FUNCTION PANEL Lab Routine Alcoholic cirrhosis of liver with ascites (HCC) Expected: 11/19/2023, Expires: 11/18/2024 PT INR Lab Routine Alcoholic cirrhosis of liver with ascites (HCC) Expected: 11/19/2023, Expires: 11/18/2024 CBC WITH WBC DIFFERENTIAL Lab Routine Alcoholic cirrhosis of liver with ascites (HCC) Expected: 11/19/2023, Expires: 11/18/2024 BASIC METABOLIC PANEL Lab Routine Alcoholic cirrhosis of liver with ascites (HCC) Expected: 11/19/2023, Expires: 11/18/2024 EGD, FLEXIBLE, DIAGNOSTIC Procedures Routine Alcoholic cirrhosis of liver with ascites (HCC) Ordered: 11/19/2023 Scheduled Procedures Name Priority Associated Diagnoses Date/Ti me ESOPHAGOGASTRODUODENOSCOPY ( EGD), FLEXIBLE, TRANSORAL, DIAGNOSTIC Alcoholic cirrhosis of liver with ascites (HCC) 05/01/2024 8:15 AM EDT Health Maintenance Due Date Last Done Comments Zoster Vaccines (1 of 2) 1996 Hepatitis B (1 of 3 - Risk 3-dose series) 2006 COVID-19 Vaccine ( season) 2023 05/09/2021, 10/12/2020, 09/22/2020 CKD PHOS USE SMARTSET 11959 09/28/202309/07, 09/04/2022, 07/26/2022, Additional history exists Depression Screening 12/01/2023 11/30/2022 GFR 02/21/2024 08/23/2023, 12/0 12/2022, 06/04/2023, Additional history exists HbA1c 02/21/2024 08/23/2023, 02/07, 11/30/2022, Additional history exists Diabetic Foot Exam 06/13/2024 06/13/2023, 1 , 05/05/2021 TSH 06/13/2024 06/13/2023, 11/07, 12/07/2021, Additional history exists Albumin/Creatinine Ratio 08/23/2024 024, 07/26/2022, 05/05/2021 CKD HGB USE SMARTSET 56853 08/23/202408/23, 08/23/2023, 06/04/2023, Additional history exists Diabetic [...] this encounter Medical Devices Implanted Type Area Equipment Service Associate Device Identifier Shelf Expiration Date Model / Serial / Lot Suture Steel 6 B&S19 M654g - [id number] Implanted:Qty: 7 on 05/30/2021 by Uvaldo Fleming MD at [facility] N/A: Sternum JNJ : [employer] 01/05/2026 [id number] / / [id number] Lipiodol Injection - [id number] Implanted:Qty: 2 on 09/06/2021 at [facility] [employer] 10/06/2022 [id number] 1 -2 / [id number] / [id number] Lipiodol Injection - [id number] Implanted:Qty: 1 on 09/06/2021 at [facility] [employer] 10/06/2022 [id number] 1 -2 / [id number] / [id number] documented as of this encounter Visit Diagnoses Diagnosis Alcoholic cirrhosis of liver with ascites (HCC)- Primary Alcoholic cirrhosis of liver Alcoholic cirrhosis of [...] Advance Directives occurred with: Patient Care Teams Manufacturing Shift Supervisor Relationship Specialty Start Date End Date Lia Meadows MD [address] [facility] [place] [address] PCP - General Internal Medicine 04/06/21 documented as of this encounter"
--- OUTSIDE RECORDS SUMMARY | 2024-03-23 15:29 | External Medical Summary | Summary of Care ---
Author Name Unknown Organization [facility] Address [address] [place] [address] Phone [phone] Care Team Providers Care Operational Risk Consultant Name Role Phone Lia Meadows MD Primary Care Provider [phone] Reason for Visit * Reason Onset Date Comments Advice 11/13/2023 Encounter Details Date Type Department Care Team (Late st Contact Info) Description 11/13/2023 Telephone Access Center, [place] [address] [facility] *DO NOT REMOVE THIS DEPARTMENT* [place] [address] Services, Scheduling [address] [place] [address] Advice Allergies Active Allergy Reactions Criticality Noted Date [...] M type 2, goal HbA1c < 7% ([facility]) Use as directed 4 times a day . Use up to 3-4 times a day as directed 100 Strip 5 11/21/2021 Active BD Pen Needle Zora U/F 32G X 4 MM (Insulin Pen Needle)Indications: Type 2 diabetes mellitus with hemoglobin A1c goal of less than 7.0% ([facility]) Use once daily with insulin [...] s:DM type 2, goal HbA1c < 7% ([facility]) INJECT 38 UNITS SUBCUTANEOUSLY DAILY [...] (toPROL XL)Indications:Chyl othorax, right,Coronary artery disease involving [place] coronary artery of [place] heart without angina pectoris,S/P CABG x 3,HFrEF (heart failure with reduced ejection fraction) ([facility]),Ischemic cardiomyopathy,PAF (paroxysmal atrial fibrillation) ([facility]),HTN, goal below 140/90,Dyslipidemia , goal LDL below 70,Cerebrovascular accident (CVA), unspecified mechanism ([facility]) TAKE 1 TABLET BY MOUTH EVERY DAY IN THE MORNING AND BEFORE BEDTIME 180 Tablet 3 10/15/2023 Active Aspirin Low Dose 81 MG Oral Tablet Delayed Release (aspirin enteric coated)Indications: Coronary artery disease involving [place] coronary artery of [place] heart without angina pectoris,Ischemic cardiomyopathy,PAF (paroxysmal atrial fibrillation) ([facility]) TAKE 1 TABLET BY MOUTH EVERY DAY IN THE MORNING 90 Tablet 3 10/15/2023 Active Additional Information Patient taking differently: 81 mg Oral EVERY OTHER DAY, Indications: sunday,wednesdays,fridays, Reported on 10/16/2023 Trulicity 1.5 MG/0.5ML Subcutaneous Solution Pen-injector (Dulaglutide)Indica tions:Type 2 diabetes mellitus with hemoglobin A1c goal of less than 8.0% ([facility]),Type 2 diabetes mellitus with stage 3a chronic kidney disease, unspecified whether fci insulin use ([facility]) INJECT 1 SYRINGE SUBCUTANEOUSLY ONCE [...] stage 3b chronic kidney disease, unspecified whether fci insulin use (HCC),Type 2 diabetes mellitus with hemoglobin A1c goal of less than 8.0% (HCC),Diabetic peripheral neuropathy (HCC),Type 2 diabetes mellitus with stage 3a chronic kidney disease, unspecified whether fci insulin use ([facility]) Check sugar before meals, at night time [...] encounter Miscellaneous Notes * Telephone Encounter - Flakita May RN - 11/13/2023 2:36 PM EDT Called and spoke to patient. States he has been having increasing abdominal swelling and weight gain over the past 5-6 weeks. Has gained 10-12 lbs over 5-6 weeks. Feels that it is hard to take a deep breath at times because of the swelling of abdomen. Is wondering if he can have an appointment to be seen by Dr Ya and discuss possible paracentesis and for assessment. Cannot make the afternoon appt on Sunday the but can be seen in the morning. Scheduled for Saturday 11/18 at 1040. Will report any worsening s/s between now and then. * Telephone Encounter - Zabrina Beht OSA - 11/13/2023 11:12 AM EDT Pt. Has called in states Dr. Ya is going on maternity leave he thinks, he did have an appointment scheduled for 11/19/23 & needs to see a physician soon states he may have paracentesis would like to know what he can do can't wait until January for an appointment documented in this encounter Plan of Treatment Upcoming Encounters Date Type Department Care Team (Late st Contact Info) Description 11/19/2023 10:40 AM EDT Office Visit Hepatology, [facility] [address] [place] [address] [address] Zabrina Ya DO [address] [place] [place] [address] 12/21/2023 9:00 AM EDT Imaging Radiology [facility] [address] [address] [address] 03/28/2024 8:30 AM EDT Office Visit Cardiology, [facility] [address] [address] Zabrina Britton CRNP [address] [place] [address] 04/09/2024 12:00 PM EDT Office Visit General Internal Medicine [facility] [facility] [place] [address] Lia Meadows MD 200 [facility] [place] [address] 06/03/2024 2:40 PM EST Office Visit Nephrology, [facility] [address] [place] [address] Breezy Meadows MD 200 [facility] [place] [address] Health Maintenance Due Date Last Done Comments Zoster Vaccines (1 of 2) 1996 Hepatitis B (1 of 3 - Risk 3-dose series) 2006 COVID-19 Vaccine ( season) 2023 05/09/2021, 10/12/2020, 09/22/2020 CKD PHOS USE SMARTSET 22881 09/28/202309/07, 09/04/2022, 07/26/2022, Additional history exists Depression Screening 12/01/2023 11/30/2022 GFR 02/21/2024 08/23/2023, 1212/2022, 06/04/2023, Additional history exists HbA1c 02/21/2024 08/23/2023, 02/07, 11/30/2022, Additional history exists Diabetic Foot Exam 06/13/2024 06/13/2023, 1 , 05/05/2021 TSH 06/13/2024 06/13/2023, 11/07, 12/07/2021, Additional history exists Albumin/Creatinine Ratio 08/23/2024 024, 07/26/2022, 05/05/2021 CKD HGB USE SMARTSET 26502 08/23/202408/23, 08/23/2023, 06/04/2023, Additional history exists Diabetic [...] this encounter Medical Devices Implanted Type Area Figurine Maker Device Identifier Shelf Expiration Date Model / Serial / Lot Suture Steel 6 B&S19 M654g - [id number] Implanted:Qty: 7 on 05/30/2021 by Uvaldo Fleming MD at OR [facility] N/A: Sternum JNJ : [employer] 01/05/2026 M654G / / [id number] Lipiodol Injection - [id number] Implanted:Qty: 2 on 09/06/2021 at [facility] 10/06/2022 [id number] 1 -2 / [id number] / [id number] Lipiodol Injection - [id number] Implanted:Qty: 1 on 09/06/2021 at [facility] 10/06/2022 82225-795 1 -2 / [id number] / [id number] documented as of this encounter Advance Directives [...] Advance Directives occurred with: Patient Care Teams Operational Risk Consultant Relationship Specialty Start Date End Date Lia Meadows MD 200 [facility] [place] [address] PCP - General Internal Medicine 04/06/21 documented as of this encounter
--- OUTSIDE RECORDS SUMMARY | 2024-03-23 15:29 | External Medical Summary ---
Author Name Unknown Address Unknown Organization K[facility] [address] [place] [address] Laboratory Report Ordering Provider Test Date Status SUKI FAIRBANKS 11/19/2023 11:43:11 Final Observation Date Value Abnormality Reference (Units ) Status Alk Phos 11/19/2023 11:43:11 141 Above high normal 35 -130 (U/L) Final Performing Location [facility] 0 - [address] [place] [address]
--- OUTSIDE RECORDS SUMMARY | 2024-03-23 15:29 | External Medical Summary ---
Author Name Unknown Address Unknown Organization K0G:[facility] [place] 57-10 - [address] [place] [address] Laboratory Report Ordering Provider Test Date Status SUKI FAIRBANKS 11/19/2023 11:43:11 Final Observation Date Value Abnormality Reference (Units ) Status Bilirubin, Total 11/19/2023 11:43:11 0.9 <=1 .2 (mg/dL) Final Performing Location [facility] - [address] [place] [address]
--- OUTSIDE RECORDS SUMMARY | 2024-03-23 15:29 | External Medical Summary ---
Author Name Unknown Address Unknown Organization [id number] - [address] [place] [address] Laboratory Report Ordering Provider Test Date Status MAGUI WHITEHEAD 11/19/2023 11:43:11 Final Observation Date Value Abnormality Reference (Units ) Status SYNC LEUKOCYTES IN BLOOD BY AUTOMATED COUNT 11/19/2023 11:43:11 4.80 4.00-10.80 (K/uL) Final Segs 11/19/2023 11:43:11 66.3 40.0-75.0 (%) Final Lymphs % 11/19/2023 11:43:11 18.5 18.0-42.0 (%) Final Monos 11/19/2023 11:43:11 12.7 Above high normal 1.0-11.0 (%) Final Eosinophils 11/19/2023 11:43:11 1.7 0.0-6.0 (%) Final Basos 11/19/2023 11:43:11 0.8 0.0-2.0 (%) Final Absolute Segs 11/19/2023 11:43:11 3.18 1.80-7.70 (K/uL) Final Lymphs, absolute 11/19/2023 11:43:11 0.89 Below low normal 1.00-4.80 (K/ul) Final Monos, Abs 11/19/2023 11:43:11 0.61 0.00-1.10 (K/uL) Final Eos, Abs 11/19/2023 11:43:11 0.08 0.00-0.70 (K/uL) Final Basos, Abs 11/19/2023 11:43:11 0.04 0.00-0.20 (K/uL) Final Performing Location [facility] 0 - [address] [place] [address]
--- OUTSIDE RECORDS SUMMARY | 2024-03-23 15:29 | External Medical Summary ---
Author Name Unknown Address Unknown Organization K01:[facility]ORY [facility] - [address] [place] [address] Laboratory Report Ordering Provider Test Date Status MAGUI WHITEHEAD 11/19/2023 11:43:11 Final Deficient: <20 ng/mL
Ins ufficient: 20-29 ng/mL
Recommended/Optimum:30-50 ng/mL

Vitamin D intoxication is rare. If suspicious of Vitamin D toxicity, evaluation of serum Calcium and PTH is recommended. Observation Date Value Abnormality Reference (Units ) Status 25-OH Vitamin D total 11/19/2023 11:43:11 38 >19 (ng/mL) Final Performing Location LAB[facility]ORY [facility] - [address] [place] [address]
--- OUTSIDE RECORDS SUMMARY | 2024-03-23 15:29 | External Medical Summary ---
Author Name Unknown Address Unknown Organization K01:LAB[facility]ATORY [facility] - [address] [place] [address] Laboratory Report Ordering Provider Test Date Status MAGUI WHITEHEAD 11/19/2023 11:43:11 Final Observation Date Value Abnormality Reference (Units ) Status Parathyrin.intact [Mass/volume] in Serum or Plasma 11/19/2023 11:43:11 140 Above high normal 15-65 (pg/mL) Final Performing Location LAB[facility]ORY [facility] - [address] [place] [address]
--- OUTSIDE RECORDS SUMMARY | 2024-03-23 15:29 | External Medical Summary ---
Author Name Unknown Address Unknown Organization [facility] - [address] [place] [address] Laboratory Report Ordering Provider Test Date Status SUKI FAIRBANKS 11/19/2023 11:43:11 Final Observation Date Value Abnormality Reference (Units ) Status ALT (Alanine aminotransferase) 11/19/2023 11:43:11 14 10-50 (U/L) Final Performing Location [facility] 0 - [address] [place] [address]
--- OUTSIDE RECORDS SUMMARY | 2024-03-23 15:29 | External Medical Summary ---
Author Name Unknown Address Unknown Organization K[facility] - [address] [place] [address] Laboratory Report Ordering Provider Test Date Status SUKI FAIRBANKS 11/19/2023 11:43:11 Final Observation Date Value Abnormality Reference (Units ) Status AST (Aspartate aminotransferase) 11/19/2023 11:43:11 20 10-50 (U/L) Final Performing Location [facility] 0 - [address] [place] [address]
--- OUTSIDE RECORDS SUMMARY | 2024-03-23 15:29 | External Medical Summary ---
Author Name Unknown Address Unknown Organization [facility] - [address] [place] [address] Laboratory Report Ordering Provider Test Date Status SUKI FAIRBANKS 11/19/2023 11:43:11 Final Observation Date Value Abnormality Reference (Units ) Status Protein 11/19/2023 11:43:11 6.6 6.0-8.3 (g /dL) Final Performing Location [facility] 0 - [address] [place] [address]
--- OUTSIDE RECORDS SUMMARY | 2024-03-23 15:29 | External Medical Summary ---
Author Name Unknown Address Unknown Organization K0G:[facility] 57-10 - [address] [place] [address] Laboratory Report Ordering Provider Test Date Status SUKI FAIRBANKS 11/19/2023 11:43:11 Final Warfarin Therapy
INR: 2 .0-3.0 conventional anticoagulation
INR: 2.5- 3.5 high intensity anticoagulation Observation Date Value Abnormality Reference (Units ) Status PT 11/19/2023 11:43:11 20.8 Above high normal 11 .6-15.2 (seconds) Final INR 11/19/2023 11:43:11 1.8 Above high normal 0. 8-1.2 Final Performing Location [facility] 57-1 0 - [address] [place] [address]
--- OUTSIDE RECORDS SUMMARY | 2024-03-23 15:29 | External Medical Summary ---
Author Name Unknown Address Unknown Organization K0G:[facility]ORY [facility] 57-10 - [address] [place] [address] Laboratory Report Ordering Provider Test Date Status MAGUI WHIETHEAD 11/19/2023 12:45:59 Final Observation Date Value Abnormality Reference (Units ) Status Color of Urine by Auto 11/19/2023 12:45:59 Yellow Light Yellow, Yellow, Dark Yellow Final Clarity, Urine 11/19/2023 12:45:59 Clear Clear Final Glucose [Mass/volume] in Urine by Automated test strip 11/19/2023 12:45:59 Negative Negative (mg/dL) Final Bilirubin.total [Presence] in Urine by Automated test strip 11/19/2023 12:45:59 Negative Negative Final Ketones [Mass/volume] in Urine by Automated test strip 11/19/2023 12:45:59 Negative Negative (mg/dL) Final Specific gravity, Urine 11/19/2023 12:45:59 1.015 1.003-1.030 Final Hemoglobin [Presence] in Urine by Automated test strip 11/19/2023 12:45:59 Small Abnormal Negative Final pH, Urine 11/19/2023 12:45:59 5.5 5.0-7.5 (Units) Final Protein [Mass/volume] in Urine by Automated test strip 11/19/2023 12:45:59 Negative Negative (mg/dL) Final Urobilinogen [Mass/volume] in Urine by Automated test strip 11/19/2023 12:45:59 0.2 0.2, 1.0 (mg/dL) Final Nitrite [Presence] in Urine by Automated test strip 11/19/2023 12:45:59 Negative Negative Final Leukocyte esterase [Presence] in Urine by Automated test strip 11/19/2023 12:45:59 Small Abnormal Negative Final RBC, Urine 11/19/2023 12:45:59 0-2 0-2 (/HPF) Final WBC, Urine 11/19/2023 12:45:59 50+ Abnormal 0-2 (/HPF) Final Bacteria [#/area] in Urine sediment by Microscopy high power field 11/19/2023 12:45:59 0-25 0-25 (/HPF) Final Performing Location LABORATORY [place] 57-1 0 - [address] [facility] [address]
--- OUTSIDE RECORDS SUMMARY | 2024-03-23 15:29 | External Medical Summary | Summary of Care ---
Author Name Unknown Organization [facility] Address [address] [place] [address] Phone [phone] Care Team Providers Care Applications Manager Name Role Phone Lia Meadows MD Primary Care Provider [phone] Reason for Visit * Reason Comments eRx-Medication Refill Encounter Details Date Type Department Care Team (Late st Contact Info) Description 12/26/2023 Refill General Internal Medicine [facility] [place] 200 [facility] [place] [address] Lia Meadows MD [address] [place] [address] Acquired hypothyroidism Allergies Active Allergy Reactions Criticality Noted Date Comments Sulfa Antibiotics Edema Other Medium 02/01/2016 Other reaction(s): unknown Tramadol Nausea/vomiting 04/01/2021 documented as of this encounter (statuses as of 12/26/2023) Medications Medication Sig Dispensed Refills Start Date [...] mouth daily with dinner. 60 Tablet 11 06/07/20 21 Active Nitroglycerin 0.4 MG Sublingual Tablet Sublingual (Nitrostat) Place 1 Tablet under the tongue every 5 minutes as needed for Pain, Chest. 06/04/20 21 Active Ondansetron HCl 4 MG Oral TabletIndications: Nausea Take by mouth 1 Tablet every 8 hours as needed for Nausea. 30 Tablet 11/22/19 Active OneTouch Ultra Blue In Vitro Strip (Glucose Blood)Indications: DM type 2, goal HbA1c < 7% ([facility]) Use as directed 4 times a day . Use up to 3-4 times a day as directed 100 Strip 11/22/19 Active BD Pen Needle Zora U/F 32G X 4 MM (Insulin Pen Needle)Indications :Type 2 diabetes mellitus with hemoglobin A1c goal of less than 7.0% ([facility]) Use once daily with insulin 100 Each 5 03/20/20 Active Finasteride 5 MG Oral Tablet (Proscar) Take 1 Tablet by mouth in the morning. 12/20/19 Active Tamsulosin HCl 0.4 MG Oral Capsule (Flomax) Take 1 Capsule by mouth in the morning. 12/20/19 Active Spironolactone 50 MG Oral Tablet (Aldactone)Indicat [...] hold for 1 day if diarrhea. 06/13/20 Active Gabapentin 100 MG Oral Capsule (Neurontin)Indicat [...] ns:DM type 2, goal HbA1c < 7% (HCC) [...] (toPROL XL)Indications:Eugenie lothorax, right,Coronary artery disease involving [place] coronary artery of [place] heart without angina pectoris,S/P CABG x 3,HFrEF (heart failure with reduced ejection fraction) ([facility]),Ischemic cardiomyopathy,PAF (paroxysmal atrial fibrillation) ([facility]),HTN, goal below 140/90,Dyslipidemi a, goal LDL below 70,Cerebrovascular accident (CVA), unspecified mechanism ([facility]) TAKE 1 TABLET BY MOUTH EVERY DAY IN THE MORNING AND BEFORE BEDTIME 180 Tablet 3 10/15/19 24 Active Aspirin Low Dose 81 MG Oral Tablet Delayed Release (aspirin enteric coated)Indications :Coronary artery disease involving [place] coronary artery of [place] heart without angina pectoris,Ischemic cardiomyopathy,PAF (paroxysmal atrial fibrillation) ([facility]) TAKE 1 TABLET BY MOUTH EVERY DAY IN THE MORNING 90 Tablet 3 10/15/19 24 Active Additional Information Patient taking differently: 81 mg Oral EVERY OTHER DAY, Indications: sunday,wednesdays,fridays, Reported on 10/16/2023 Trulicity 1.5 MG/0.5ML Subcutaneous Solution Pen-injector (Dulaglutide)Indic ations:Type 2 diabetes mellitus with hemoglobin A1c goal of less than 8.0% (HCC),Type 2 diabetes mellitus with stage 3a chronic kidney disease, unspecified whether terminal computer operator insulin use (HCC) INJECT 1 SYRINGE SUBCUTANEOUSLY ONCE A WEEK 6 mL 3 11/13/19 24 Active Lactulose 10 GM/15ML Oral Solution (Constulose)Indica tions:Cirrhosis of liver with ascites, unspecified hepatic cirrhosis type (HCC),Other constipation Take 15 mL by mouth in the morning and 15 mL before bedtime. Can add 2 more doses if severe constipation. 237 mL 3 11/13/19 24 Active Blood Glucose Monitoring Suppl w/Device KitIndications: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, unspecified whether detention insulin use (HCC),Type 2 diabetes mellitus with hemoglobin A1c goal of less than 8.0% (HCC),Diabetic peripheral neuropathy (HCC),Type 2 diabetes mellitus with stage 3a chronic kidney disease, unspecified whether detention insulin use (HCC) Check sugar before meals, at night time and as needed for motoring sugar . Dx -E.11.9 and E11.65 1 Kit 11/13/19 24 Active Levothyroxine Sodium 88 MCG Oral Tablet (Levoxyl)Indicatio ns:Acquired hypothyroidism TAKE 1 TABLET BY MOUTH IN THE MORNING AT LEAST 30 MINUTES PRIOR TO BREAKFAST AND OTHER MEDS 90 Tablet 1 12/26/19 24 Active Levothyroxine Sodium 88 MCG Oral Tablet (Levoxyl)Indicatio ns:Acquired hypothyroidism TAKE 1 TABLET BY MOUTH IN THE MORNING AT LEAST 30 MINUTES PRIOR TO BREAKFAST AND OTHER MEDS 90 Tablet 3 12/30/19 23 024 Discontinued documented as of this encounter (statuses as of 12/26/2023) Active Problems Problem Noted Date Diagnosed Date [...] as of this encounter (statuses as of 12/26/2023) Resolved Problems Problem Noted Date Diagnosed Date [...] as of this encounter (statuses as of 12/26/2023) Immunizations Name Administration Dates Next Due COVID-19 [...] encounter Miscellaneous Notes * Telephone Encounter - Jonathan Linton [facility] ED - 12/26/2023 12:17 PM EDTSigned Prescriptions: Disp Refills Levothyroxine Sodium 88 MCG Oral Tablet (L*90 Tab*1 Sig: TAKE 1 TABLET BY MOUTH IN THE MORNING AT LEAST 30 MINUTES PRIOR TO BREAKFAST AND OTHER MEDSAuthorizing Provider: Chuck MEADOWS User: JONATHAN LINTON documented in this encounter Plan of Treatment Upcoming Encounters Date Type Department Care Team (Latest Contact Info) Description 03/28/2024 8:30 AM EDT Office Visit Cardiology, [facility] [address] [address] Zabrina Britton CRNP [address] [place] [address] 04/09/2024 12:00 PM EDT Office Visit General Internal Medicine [facility] [place] [address] [place] [address] Lia Meadows MD [address] [place] [address] 05/01/2024 8:15 AM EDT Hospital Encounter ENDO [facility], Endoscopy Room [facility] [address] [place], [place] [address] Zabrina Ya, DO [address] [place], [place] [address] 05/01/2024 8:15 AM EDT - 05/01/2024 8:45 AM EDT Surgery ENDO [facility], Endoscopy Room [facility] [address] [place], [place] [address] Zabrina Ya, DO [address] [place] [address] ESOPHAGOGASTRODUODENOSCOPY (EGD), FLEXIBLE, TRANSORAL, DIAGNOSTIC 05/23/2024 8:40 AM EST Office Visit Hepatology, [facility] [address] [place] [address] Zabrina Ya, [address] [place] [address] 06/03/2024 2:40 PM EST Office Visit Nephrology, [facility]ots[facility] [address] [facility] [place], [place] [address] Breezy Meadows MD [address] [place], [place] [address] Scheduled Procedures Name Priority Associated Diagnoses Date/Ti [...] Additional history exists CKD HGB USE SMARTSET 24431 11/18/202411/18, 11/19/2023, 08/23/2023, Additional history exists CKD PHOS USE SMARTSET 85146 11/18/202411/06, 09/27/2022, 09/04/2022, Additional history exists DTaP,Tdap,and [...] this encounter Medical Devices Implanted Type Area Fur Dressing Supervisor Device Identifier Shelf Expiration Date Model / Serial / Lot Suture Steel 6 B&S19 M654g - [id number] Implanted:Qty: 7 on 05/30/2021 by Uvaldo Fleming MD at [place] [facility] N/A: Bridget ZHANG : [employer] 01/05/2026 M654G / / [id number] Lipiodol Injection - [id number] Implanted:Qty: 2 on 09/06/2021 at [facility] [facility] 10/06/2022 [id number] 1 -2 / [id number] / [id number] Lipiodol Injection - [id number] Implanted:Qty: 1 on 09/06/2021 at [facility] [employer] 10/06/2022 [id number] 1 -2 / [id number] / [id number] documented as of this encounter Visit Diagnoses Diagnosis Acquired hypothyroidism Unspecified hypothyroidism Alcoholic cirrhosis of liver with ascites (HCC) [...] Advance Directives occurred with: Patient Care Teams Applications Manager Relationship Specialty Start Date End Date Lia Meadows MD [address] [place], [place] [address] PCP - General Internal Medicine 04/06/21 documented as of this encounter
--- OUTSIDE RECORDS SUMMARY | 2024-03-23 15:29 | External Medical Summary ---
Author Name Unknown Address Unknown Organization [facility] - [address] [place] [address] Laboratory Report Ordering Provider Test Date Status SUKI FAIRBANKS 11/19/2023 11:43:11 Final Observation Date Value Abnormality Reference (Units ) Status Bilirubin, Direct 11/19/2023 11:43:11 0.3 0. 0-0.3 (mg/dL) Final Performing Location [facility] 0 - [address] [place] [address]
--- OUTSIDE RECORDS SUMMARY | 2024-03-23 15:29 | External Medical Summary ---
Author Name Unknown Address Unknown Organization [id number]:[facility] [address] [place] [address] Laboratory Report Ordering Provider Test Date Status MAGUI WHITEHEAD 11/19/2023 11:43:11 Final Observation Date Value Abnormality Reference (Units ) Status BUN 11/19/2023 11:43:11 31 Above high normal 6-20 (mg/dL) Final Creatinine 11/19/2023 11:43:11 1.8 Above high normal 0.6-1.2 (mg/dL) Final Glomerular filtration rate/1.73 sq M.predicted [Volume Rate/Area] in Serum, Plasma or Blood by Creatinine-based formula (CKD-EPI) 11/19/2023 11:43:11 38 Below low normal >=60 (mL/min) Final eGFR is calculated based on the CKD-EPI 2020 equation Sodium 11/19/2023 11:43:11 140 135-146 (m mol/L) Final Potassium 11/19/2023 11:43:11 4.6 3.5-5.1 (m mol/L) Final Cl 11/19/2023 11:43:11 105 98-107 (mm ol/L) Final CO2 11/19/2023 11:43:11 23 22-32 (mmo l/L) Final Anion gap 11/19/2023 11:43:11 12 7-15 (mmol /L) Final Glucose 11/19/2023 11:43:11 201 Above high normal 70 -120 (mg/dL) Final Calcium 11/19/2023 11:43:11 9.8 8.4-10.2 ( mg/dL) Final Albumin 11/19/2023 11:43:11 4.2 3.8-5.0 (g /dL) Final Phosphate 11/19/2023 11:43:11 3.5 2.5-4.8 (m g/dL) Final Performing Location LABORATORY C - [address] [place] [address]
--- OUTSIDE RECORDS SUMMARY | 2024-03-23 15:30 | External Medical Summary | Summary of Care ---
Author Name Unknown Organization [facility] Address [address] [place] [address] Phone [phone] Care Team Providers Care Aluminum Can Collector Name Role Phone Lia Meadows MD Primary Care Provider [phone] Reason for Visit * Reason Comments eRx-Medication Refill Encounter Details Date Type Department Care Team (Late st Contact Info) Description 10/14/2023 Refill Cardiology, [facility] [address] [facility] [address] Zabrina Britton CRNP [address] 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; S/P CABG x 3; HFrEF (heart failure with reduced ejection fraction) ([facility]); Ischemic cardiomyopathy; PAF (paroxysmal atrial fibrillation) ([facility]); HTN, goal below 140/90; Dyslipidemia, goal LDL below 70; Cerebrovascular accident (CVA), unspecified mechanism ([facility]) Allergies Active Allergy Reactions Criticality Noted Date Comments Sulfa Antibiotics Edema Other Medium 02/01/2016 Other reaction(s): unknown Tramadol Nausea/vomiting 04/01/2021 documented as of this encounter (statuses as of 10/15/2023) Medications Medication Sig Dispensed Refills Start Date [...] daily with dinner. 60 Tablet 11 06/07/20 Active Nitroglycerin 0.4 MG Sublingual Tablet Sublingual (Nitrostat) Place 1 Tablet under the tongue every 5 minutes as needed for Pain, Chest. 0 06/04/20 21 Active Ondansetron HCl 4 MG Oral TabletIndications: Nausea Take by mouth 1 Tablet every 8 hours as needed for Nausea. 30 Tablet 0 11/22/19 22 Active OneTouch Ultra Blue In Vitro Strip (Glucose Blood)Indications: DM type 2, goal HbA1c < 7% ([facility]) Use as directed 4 times a day . Use up to 3-4 times a day as directed 100 Strip 5 11/22/19 22 Active BD Pen Needle Zora U/F 32G X 4 MM (Insulin Pen Needle)Indications :Type 2 diabetes mellitus with hemoglobin A1c goal of less than 7.0% ([facility]) Use once daily with insulin 100 Each 5 03/20/20 22 Active Aspirin 81 MG Oral Tablet Delayed Release Take 1 Tablet by mouth every other day. 90 Tablet 3 08/28/19 23 Active Levothyroxine Sodium 88 MCG Oral Tablet (Levoxyl)Indicatio ns:Acquired hypothyroidism TAKE 1 TABLET BY MOUTH IN THE MORNING AT LEAST 30 MINUTES PRIOR TO BREAKFAST AND OTHER MEDS 90 Tablet 3 12/30/19 23 Active Finasteride 5 MG Oral Tablet (Proscar) Take 1 Tablet by mouth in the morning. 0 12/20/19 23 Active Tamsulosin HCl 0.4 MG Oral Capsule (Flomax) Take 1 Capsule by mouth in the morning. 0 12/20/19 23 Active Spironolactone 50 MG Oral [...] hold for 1 day if diarrhea. 0 06/13/20 23 Active Gabapentin 100 MG Oral [...] DIARRHEA 60 Capsule 11 09/10/19 24 Active Eliquis 5 MG Oral Tablet (Apixaban) TAKE 1 TABLET BY MOUTH IN THE MORNING AND BEFORE BEDTIME 180 Tablet 3 09/10/19 24 Active Trulicity 1.5 MG/0.5ML Subcutaneous Solution Pen-injector (Dulaglutide)Indic ations:Type 2 diabetes mellitus with hemoglobin A1c goal of less than 8.0% ([facility]),Type 2 diabetes mellitus with stage 3a chronic kidney disease, unspecified whether care home insulin use ([facility]) INJECT 1 SYRINGE SUBCUTANEOUSLY ONCE A WEEK 6 mL 0 09/19/19 24 Active Insulin Glargine Solostar 100 UNIT/ML Subcutaneous Solution Pen-injector (Lantus SoloStar)Indicatio ns:DM type 2, goal HbA1c < 7% ([facility]) INJECT 38 UNITS SUBCUTANEOUSLY DAILY BEFORE BEDTIME 0 09/18/19 24 Active Atorvastatin Calcium 40 MG Oral Tablet (Lipitor)Indicatio ns:Hyperlipidemia LDL goal <100 TAKE 1 TABLET BY MOUTH EVERY DAY 90 Tablet 1 09/28/19 24 Active Trulicity 0.75 MG/0.5ML Subcutaneous Solution Pen-injector (Dulaglutide)Indic ations:Type 2 diabetes mellitus with stage 3b chronic kidney disease ([facility]) Inject 0.75 mg under the skin once a week. 2 mL 2 10/03/19 24 Active Furosemide 20 MG Oral Tablet (Lasix)Indications :Cirrhosis of liver with ascites, unspecified hepatic cirrhosis type ([facility]) Take 1 Tablet by mouth in the morning. 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,S/P CABG x 3,HFrEF (heart failure with reduced ejection fraction) ([facility]),Ischemic cardiomyopathy,PAF (paroxysmal atrial fibrillation) (HCC),HTN, goal below 140/90,Dyslipidemi a, goal LDL below 70,Cerebrovascular accident (CVA), unspecified mechanism (HCC) TAKE 1 TABLET BY MOUTH EVERY DAY IN THE MORNING AND BEFORE BEDTIME 180 Tablet 3 10/15/19 24 Active Metoprolol Succinate ER 100 MG Oral Tablet Extended Release 24 Hour (toPROL XL)Indications:Eugenie lothorax, right,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 180 Tablet 3 10/17/19 23 024 Discontinued documented as of this encounter (statuses as of 10/15/2023) Active Problems Problem Noted Date Diagnosed Date [...] as of this encounter (statuses as of 10/15/2023) Resolved Problems Problem Noted Date Diagnosed Date [...] as of this encounter (statuses as of 10/15/2023) Immunizations Name Administration Dates Next Due COVID-19 [...] encounter Miscellaneous Notes * Telephone Encounter - Long Santos CRNP - 10/15/2023 1:18 PM EDTSigned Prescriptions: Disp Refills Metoprolol Succinate ER 100 MG Oral Tablet*180 Ta*3 Sig: TAKE 1 TABLET BY MOUTH EVERY DAY IN THE MORNING AND BEFORE BEDTIME Authorizing Provider: LONG SANTOS * Telephone Encounter - Kacy Loja CMA - 10/15/2023 12:59 PM EDTPending Prescriptions: Disp Refills Metoprolol Succinate ER 100 MG Oral Tablet*180 Ta*3 Sig: TAKE 1 TABLET BY MOUTH EVERY DAY IN THE MORNING AND BEFORE BEDTIME * Telephone Encounter - Kacy Loja CMA - 10/15/2023 12:58 PM EDT Did you pend patient's preferred pharmacy and medication before forwarding?yes Pharmacy: [id number] Pending Prescriptions: Disp Refills Metoprolol Succinate ER 100 MG Oral Table*180 Ta*3 Sig: TAKE 1 TABLET BY MOUTH EVERY DAY IN THE MORNING AND BEFORE BEDTIME Last Visit: 10/09/2023 (in office), 12/16/2021 (telemedicine) Next Visit: 03/28/2024 If no future appointments scheduled, and last appointment is greater than a year ago, please schedule patient for a follow-up appointment Last date the medication was ordered: 10-16-2022 Is this request for a controlled substance?No Urine Drug Screen:No results found for this or any previous visit. Patient Phone Numbers Labs: Lab Results Component Value Date/Time CREAT 1.7 (H) 08/23/2023 09:48 AM CREAT 1.05 12/07/2021 12:00 AM POTASSIUM 4.0 08/23/2023 09:48 AM POTASSIUM 3.8 12/07/2021 12:00 AM TSH 3.35 06/13/2023 10:02 AM TSH 3.49 02/22/2021 12:00 AM LDLCALC 32 03/02/2023 10:32 AM LDLCALC 64 02/22/2021 12:00 AM ALT 22 08/23/2023 09:48 AM HGBA1C 8.4 (H) 08/23/2023 09:48 AM HGBA1C 6.9 (H) 09/16/2021 11:38 AM HGBA1C 6.6 (A) 02/22/2021 12:00 AM documented in this encounter Plan of Treatment Upcoming Encounters Date Type Department Care Team (Latest Contact Info) Description 10/23/2023 9:30 AM EDT Hospital Encounter ENDO [facility], Endoscopy Room [facility] [address] [place] [phone] Zabrina Ya DO [address] [place] [address] 10/23/2023 9:30 AM EDT - 10/23/2023 10:00 AM EDT Surgery ENDO [facility], Endoscopy Room [facility] [address] [place] [phone] Zabrina Ya DO [address] [place] [address] ESOPHAGOGASTRODUODENOSCOPY (EGD), FLEXIBLE, TRANSORAL, DIAGNOSTIC 11/13/2023 9:40 AM EDT Office Visit General Internal Medicine [facility] [address] [place] [address] Lia Meadows MD [address] [place] [address] 11/19/2023 3:00 PM EDT Office Visit Hepatology, [facility] 132 [facility] [place] [address] Zabrina Ya DO [address] [place] [address] 12/21/2023 9:15 AM EDT Imaging Radiology [facility] 132 [facility] [place] [address] 03/28/2024 8:30 AM EDT Office Visit Cardiology, [facility] [address] [facility] [place] [address] Zabrina Britton CRNP 132 [facility] [place] [address] 06/03/2024 2:40 PM EST Office Visit Nephrology, [facility] [address] [place] [address] Breezy Meadows MD [address] [place] [address] Scheduled Procedures Name Priority Associated Diagnoses Date/Ti me ESOPHAGOGASTRODUODENOSCOPY ( EGD), FLEXIBLE, TRANSORAL, DIAGNOSTIC Alcoholic cirrhosis of liver with ascites (HCC) 10/23/2023 9:30 AM EDT Health Maintenance Due Date Last Done Comments Zoster Vaccines (1 of 2) 1996 Hepatitis B (1 of 3 - Risk 3-dose series) 2006 COVID-19 Vaccine ( season) 2023 05/09/2021, 10/12/2020, 09/22/2020 CKD PHOS USE SMARTSET 42165 09/28/2023 03/08/2022, 09/04/2022, 07/26/2022, Additional history exists Diabetic Eye Exam 11/09/2023 11/08/2022, , 11/08/2022, Additional history exists Depression Screening 12/01/2023 11/30/2022 GFR 02/21/2024 08/23/2023, 12/0 12/2022, 06/04/2023, Additional history exists HbA1c 02/21/2024 08/23/2023, 02/07, 11/30/2022, Additional history exists Diabetic Foot Exam 06/13/2024 06/13/2023, 1 , 05/05/2021 TSH 06/13/2024 06/13/2023, 11/07, 12/07/2021, Additional history exists Albumin/Creatinine Ratio 08/23/2024 024, 07/26/2022, 05/05/2021 CKD HGB USE SMARTSET 72973 08/23/202408/23, 08/23/2023, 06/04/2023, Additional history exists DTaP,Tdap,and [...] this encounter Medical Devices Implanted Type Area Warehouse Incentive Selector Device Identifier Shelf Expiration Date Model / Serial / Lot Suture Steel 6 B&S19 M654g - [id number] Implanted:Qty: 7 on 05/30/2021 by Uvaldo Fleming MD at [place] [facility] N/A: Sternum VICENTE : [employer] 01/05/2026 M654G / / [id number] Lipiodol Injection - [id number] Implanted:Qty: 2 on 09/06/2021 at [facility] [employer] 10/06/2022 17577-960 1 -2 / [id number] / [id number] Lipiodol Injection - [id number] Implanted:Qty: 1 on 09/06/2021 at [facility] [employer] 10/06/2022 [id number] 1 -2 / [id number] / [id number] documented as of this encounter Visit Diagnoses Diagnosis Chylothorax, 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 bypass status HFrEF (heart failure with reduced ejection fraction) (HCC) Ischemic cardiomyopathy Other specified forms of chronic ischemic heart disease PAF (paroxysmal atrial fibrillation) (HCC) Atrial fibrillation HTN, goal below 140/90 Unspecified essential hypertension Dyslipidemia, goal LDL below 70 Other and unspecified hyperlipidemia Cerebrovascular accident (CVA), unspecified mechanism (HCC) Alcoholic cirrhosis of liver with ascites [...] Advance Directives occurred with: Patient Care Teams Aluminum Can Collector Relationship Specialty Start Date End Date Lia Meadows MD [address] [place] [address], [place] [address] PCP - General Internal Medicine 04/06/21 documented as of this encounter
--- OUTSIDE RECORDS SUMMARY | 2024-03-23 15:30 | External Medical Summary | Summary of Care ---
Author Name Unknown Organization [facility] Address [address] [place] [place] [facility] [place] [address] Phone [phone] Care Team Providers Care Stripper Cutter Machine Name Role Phone Lia Meadows MD Primary Care Provider [phone] Reason for Visit * Reason Onset Date Comments Advice 09/19/2023 Encounter Details Date Type Department Care Team (Late st Contact Info) Description 09/19/2023 Telephone Gastroenterology, [address] [phone] Zabrina Ya, [address] [facility] [address] Advice Allergies Active Allergy Reactions Criticality Noted Date Comments Sulfa Antibiotics Edema Other Medium 02/01/2016 Other reaction(s): unknown Tramadol Nausea/vomiting 04/01/2021 documented as of this encounter (statuses as of 09/26/2023) Medications Medication Sig Dispensed Refills Start Date [...] M type 2, goal HbA1c < 7% ([facility]) Use as directed 4 times a day . Use up to 3-4 times a day as directed 100 Strip 5 11/21/2021 Active BD Pen Needle Zora U/F 32G X 4 MM (Insulin Pen Needle)Indications: Type 2 diabetes mellitus with hemoglobin A1c goal of less than 7.0% ([facility]) Use once daily with insulin 100 Each 5 03/20/2022 Active Aspirin 81 MG Oral Tablet Delayed Release Take 1 Tablet by mouth every other day. 90 Tablet 3 08/28/2022 Active Atorvastatin Calcium 40 MG Oral Tablet (Lipitor)Indication s:Hyperlipidemia LDL goal <100 TAKE 1 TABLET BY MOUTH EVERY DAY 90 Tablet 3 09/29/2022 Active Additional Information Patient taking differently: 40 mg Oral Daily(AM), Reported on 06/18/2023 Magnesium Chloride 64 MG Oral TabletIndications:C hronic kidney disease, stage 3a ([facility]) Take 1 Tablet by mouth in the morning. 30 Tablet 5 10/04/2022 Active Additional Information Patient not taking.Reported on 06/18/2023 Metoprolol Succinate ER 100 MG Oral Tablet Extended Release 24 Hour (toPROL XL)Indications:Chyl othorax, right,Coronary artery disease involving emmon[place] coronary artery of [place]mon[place] heart without angina pectoris,S/P CABG x 3,HFrEF (heart failure with reduced ejection fraction) ([facility]),Ischemic cardiomyopathy,PAF (paroxysmal atrial fibrillation) ([facility]),HTN, goal below 140/90,Dyslipidemia , goal LDL below 70,Cerebrovascular accident (CVA), unspecified mechanism ([facility]) TAKE BY MOUTH 1 TABLET IN THE MORNING AND 1 TABLET BEFORE BEDTIME. 180 Tablet 3 10/16/2022 Active Levothyroxine Sodium 88 MCG Oral Tablet (Levoxyl)Indication s:Acquired hypothyroidism TAKE 1 TABLET BY MOUTH IN THE MORNING AT LEAST 30 MINUTES PRIOR TO BREAKFAST AND OTHER MEDS 90 Tablet 3 12/29/2022 Active Albumin Human 25 % Intravenous Solution 3 L to 5 L give 1 unit Albumin (25 gm in 100ml) 5 L to 7.5 L give 2 units Albumin (25 gm in 100 ml x2) 7.5 L to 12 L give 3 units Albumin (25 mg in 100 ml x3) Infuse Albumin over 30 to 60 minutes for each unit . May run at a rate of 100mL/hr. 200 mL 0 01/01/2023 Active Additional Information Patient not taking.Reported on 06/13/2023 Finasteride 5 MG Oral Tablet (Proscar) Take [...] 1 day if diarrhea. 0 06/13/2023 Active Esomeprazole Magnesium 20 MG Oral Capsule Delayed Release (NexIUM)Indications :Gastroesophageal reflux disease without esophagitis Take 1 Capsule by mouth at bedtime. 90 Capsule 3 06/13/2023 Active Additional Information Patient not taking.Reported on 07/06/2023 Gabapentin 100 MG Oral Capsule (Neurontin)Indicati ons:Neck pain Take 2 Capsules by mouth at bedtime. 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 INCREASE TO TWICE A DAY FOR CONSTIPATION AND NO TAB WHEN DIARRHEA 60 Capsule 11 09/10/2023 Active Eliquis 5 MG Oral Tablet (Apixaban) TAKE 1 TABLET BY MOUTH IN THE MORNING AND BEFORE BEDTIME 180 Tablet 3 09/10/2023 Active Additional Information Patient not taking.Reported on 09/14/2023 Omeprazole 20 MG Oral Capsule Delayed Release (PriLOSEC) Take 1 Capsule by mouth in the morning. 0 Active Trulicity 1.5 MG/0.5ML Subcutaneous Solution Pen-injector (Dulaglutide)Indica tions:Type 2 diabetes mellitus with hemoglobin A1c goal of less than 8.0% ([facility]),Type 2 diabetes mellitus with stage 3a chronic kidney disease, unspecified whether assisted insulin use ([facility]) INJECT 1 SYRINGE SUBCUTANEOUSLY ONCE A WEEK 6 mL 0 09/19/2023 Active Insulin Glargine Solostar 100 UNIT/ML Subcutaneous Solution Pen-injector (Lantus SoloStar)Indication s:DM type 2, goal HbA1c < 7% ([facility]) INJECT 38 UNITS SUBCUTANEOUSLY DAILY BEFORE BEDTIME 0 09/18/2023 Active documented as of this encounter (statuses as of 09/26/2023) Active Problems Problem Noted Date Diagnosed Date [...] as of this encounter (statuses as of 09/26/2023) Resolved Problems Problem Noted Date Diagnosed Date [...] as of this encounter (statuses as of 09/26/2023) Immunizations Name Administration Dates Next Due COVID-19 [...] encounter Miscellaneous Notes * Telephone Encounter - Zoraida Monaco RN - 09/19/2023 10:52 AM EDT Images from the original note were not included. Called and spoke with pt's . Notified her. Zabrina Ya, DO [facility] Gastro Nurse Pool/Class9 minutes ago (10:33 AM) This is just to prevent post-banding ulcers after banding is performed but if its causing him symptoms he can just stop it. Zabrina Ya DO * Telephone Encounter - Zoraida Monaco RN - 09/19/2023 10:51 AM EDT Images from the original note were not included. Zabrina Ya, DO [facility] Gastro Nurse Pool/Class9 minutes ago (10:33 AM) This is just to prevent post-banding ulcers after banding is performed but if its causing him symptoms he can just stop it. Zabrina Ya DO * Telephone Encounter - Zoraida Monaco RN - 09/19/2023 10:23 AM EDT Pt called in. Says he was instructed to take omeprazole for 3 weeks. Thinks it caused him to have heartburn. Took it and soon after taking it, heartburn started. C/o "Burning at my breastbone." Took it for 3 more days. Had heartburn all 3 days. Stopped omeprazole on Sunday. Heartburn has been gone since stopping it on Sunday. Wants to know if dr Ya wants to prescribe something else or if he just shouldn't take anything. documented in this encounter Plan of Treatment Upcoming Encounters Date Type Department Care Team (Latest Contact Info) Description 10/09/2023 8:30 AM EDT [facility] [place] [address] Zabrina Britton CRNP 132 [facility] [place] [address] 10/23/2023 2:30 PM EDT Hospital Encounter ENDO [facility], Endoscopy Room [facility] [address] [place], [place] [phone] Zabrina Ya, DO [address] [place] [address] 10/23/2023 2:30 PM EDT - 10/23/2023 3:00 PM EDT [facility] Room [facility] [address] [place], [place] [phone] Zabrina Ya, DO [address] [place], [place] [address] ESOPHAGOGASTRODUODENOSCOPY (EGD), FLEXIBLE, TRANSORAL, DIAGNOSTIC 11/13/2023 9:40 AM EDT Office Visit General Internal Medicine [facility] [address] [place] [address] Lia Medaows MD [address] [facility] [place] [address] 11/19/2023 3:00 PM EDT Office Visit Hepatology, [facility] [address] [place] [address] Zabrina Ya, [address] [place] [address] 12/21/2023 9:15 AM EDT Imaging Radiology [facility] [address] [place] [address] 06/03/2024 2:40 PM EST Office Visit Nephrology, [facility] [address] [place] [address] Breezy Meadows MD 200 [facility] [place] [address] Scheduled Procedures Name Priority Associated Diagnoses Date/Ti me ESOPHAGOGASTRODUODENOSCOPY ( EGD), FLEXIBLE, TRANSORAL, DIAGNOSTIC Alcoholic cirrhosis of liver with ascites (HCC) 10/23/2023 2:30 PM EDT Health Maintenance Due Date Last Done Comments Zoster Vaccines (1 of 2) 1996 Hepatitis B (1 of 3 - Risk 3-dose series) 2006 COVID-19 Vaccine ( season) 2023 05/09/2021, 10/12/2020, 09/22/2020 CKD PHOS USE SMARTSET 56502 09/28/202309/07, 09/04/2022, 07/26/2022, Additional history exists Diabetic Eye Exam 11/09/2023 11/08/2022, , 11/08/2022, Additional history exists Depression Screening 12/01/2023 11/30/2022 GFR 02/21/2024 08/23/2023, 12/12/2022, 06/04/2023, Additional history exists HbA1c 02/21/2024 08/23/2023, 02/07, 11/30/2022, Additional history exists Diabetic Foot Exam 06/13/2024 06/13/2023, 1 , 05/05/2021 TSH 06/13/2024 06/13/2023, 11/07, 12/07/2021, Additional history exists Albumin/Creatinine Ratio 08/23/2024 024, 07/26/2022, 05/05/2021 CKD HGB USE SMARTSET 74260 08/23/202408/23, 08/23/2023, 06/04/2023, Additional history exists DTaP,Tdap,and [...] this encounter Medical Devices Implanted Type Area Executive Director Global Brand Marketing Device Identifier Shelf Expiration Date Model / Serial / Lot Suture Steel 6 B&S19 M654g - [id number] Implanted:Qty: 7 on 05/30/2021 by Uvaldo Fleming [place] [facility]A: Sternum [employer] : [employer] 01/05/2026 M654G / / [id number] Lipiodol Injection - [id number] Implanted:Qty: 2 on 09/06/2021 at [facility] [employer] 10/06/2022 [id number] 1 -2 / [id number] / [id number] Lipiodol Injection - [id number] Implanted:Qty: 1 on 09/06/2021 at [facility] [employer] 10/06/2022 [id number] 1 -2 / [id number] / [id number] documented as of this encounter Advance Directives [...] Advance Directives occurred with: Patient Care Teams Stripper Cutter Machine Relationship Specialty Start Date End Date Lia Meadows MD [address] [place] [address] PCP - General Internal Medicine 04/06/21 documented as of this encounter
--- OUTSIDE RECORDS SUMMARY | 2024-03-23 15:30 | External Medical Summary | Summary of Care ---
Author Name Unknown Organization [facility] Address [address] [place] [address] Phone [phone] Care Team Providers Care Act Tutor Name Role Phone Lia Meadows MD Primary Care Provider [phone] Reason for Visit * Reason Onset Date Comments Health Maintenance 10/03/2023 Encounter Details Date Type Department Care Team (Late st Contact Info) Description 10/03/2023 Telephone General Internal Medicine [facility] [address] [facility] [place] [address] Lia Meadows MD [address] [place] [address] Health Maintenance Allergies Active Allergy Reactions Criticality Noted Date Comments Sulfa Antibiotics Edema Other Medium 02/01/2016 Other reaction(s): unknown Tramadol Nausea/vomiting 04/01/2021 documented as of this encounter (statuses as of 10/03/2023) Medications Medication Sig Dispensed Refills Start Date [...] other day. 90 Tablet 3 08/28/2022 Active Magnesium Chloride 64 MG Oral TabletIndications:C hronic kidney disease, stage 3a ([facility]) Take 1 Tablet by mouth in the morning. 30 Tablet 5 10/04/2022 Active Additional Information Patient not taking.Reported on 06/18/2023 Metoprolol Succinate ER 100 MG Oral Tablet Extended Release 24 Hour (toPROL XL)Indications:Chyl othorax, right,Coronary artery disease involving [place] coronary artery of [place] heart without angina pectoris,S/P CABG x 3,HFrEF (heart failure with reduced ejection fraction) ([facility]),Ischemic cardiomyopathy,PAF (paroxysmal atrial fibrillation) ([facility]),HTN, goal below 140/90,Dyslipidemia , goal LDL below 70,Cerebrovascular accident (CVA), unspecified mechanism ([facility]) TAKE BY MOUTH 1 TABLET IN THE [...] stage 3a chronic kidney disease, 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 ([facility]) INJECT 1 SYRINGE SUBCUTANEOUSLY ONCE A WEEK [...] EVERY DAY 90 Tablet 1 09/28/2023 Active documented as of this encounter (statuses as of 10/03/2023) Active Problems Problem Noted Date Diagnosed Date [...] as of this encounter (statuses as of 10/03/2023) Resolved Problems Problem Noted Date Diagnosed Date [...] as of this encounter (statuses as of 10/03/2023) Immunizations Name Administration Dates Next Due COVID-19 [...] encounter Miscellaneous Notes * Telephone Encounter - Vandana Harvey LPN - 10/03/2023 3:11 PM EDT Care Gaps Comprehensive Care Outreach Last Office/Telemedicine Visit: 06/13/2023 (in office), Visit date not found (telemedicine) Next Office Visit: 11/13/2023 Hemoglobin AIC Results: Lab Results Component Value Date/Time HEMOGLOBIN A1C - [facility] 8.4 (H) 08/23/2023 09:48 AM HEMOGLOBIN A1C - [facility] 7.9 (H) 03/02/2023 10:32 AM HEMOGLOBIN A1C - [facility] 7.9 (H) 11/30/2022 10:28 AM HEMOGLOBIN A1C POCT - [facility] 6.9 (H) 09/16/2021 11:38 AM BP Readings from Last 1 Encounters: 09/14/23 106/58 Reviewed Health Maintenance below: Health Maintenance Topic Date Due Zoster Vaccines (1 of 2) Never done Hepatitis B (1 of 3 - Risk 3-dose series) Never done COVID-19 Vaccine () 03/09/2023 CKD PHOS USE SMARTSET 17283 09/28/2023 Diabetic Eye Exam 11/09/2023 Depression Screening 12/01/2023 HbA1c 02/21/2024 GFR 02/21/2024 Lab already ordered by nephro [facility] Care Gap Outreach Action Taken: Outreach not indicated documented in this encounter Plan of Treatment Upcoming Encounters Date Type Department Care Team (Latest Contact Info) Description 10/09/2023 8:30 AM EDT Office Visit Cardiology, [facility] [address] [place] [address] Zabrina Britton CRNP [address] [place] [address] 10/23/2023 9:30 AM EDT Hospital Encounter ENDO OSSC, Endoscopy Room [facility] [address] [place] [phone] Zabrina Ya DO [address] [place] [address] 10/23/2023 9:30 AM EDT - 10/23/2023 10:00 AM EDT Surgery ENDO O[facility], Endoscopy Room [facility] [address] [place] [phone] Zabrina Ya, DO [address] [place] [address] ESOPHAGOGASTRODUODENOSCOPY (EGD), FLEXIBLE, TRANSORAL, DIAGNOSTIC 11/13/2023 9:40 AM EDT Office Visit General Internal Medicine [facility] [address] [facility] [place] [address] Lia Meadows MD [address] [facility] [place] [address] 11/19/2023 3:00 PM EDT Office Visit Hepatology, [facility] [address] [place] [address] Zabrina Ya, 132 [facility] [place] [address] 12/21/2023 9:15 AM EDT Imaging Radiology [facility] [address] [place] [address] 06/03/2024 2:40 PM EST Office Visit Nephrology, [facility] [address] [facility] [place] [address] Breezy Meadows MD [address] [facility] [place] [address] Scheduled Procedures Name Priority Associated Diagnoses Date/Ti me ESOPHAGOGASTRODUODENOSCOPY ( EGD), FLEXIBLE, TRANSORAL, DIAGNOSTIC Alcoholic cirrhosis of liver with ascites (HCC) 10/23/2023 9:30 AM EDT Health Maintenance Due Date Last Done Comments Zoster Vaccines (1 of 2) 1996 Hepatitis B (1 of 3 - Risk 3-dose series) 2006 COVID-19 Vaccine ( season) 2023 05/09/2021, 10/12/2020, 09/22/2020 CKD PHOS USE SMARTSET 50168 09/28/2023 03/08/2022, 09/04/2022, 07/26/2022, Additional history exists [...] 024, 07/26/2022, 05/05/2021 CKD HGB USE SMARTSET 35424 08/23/202408/23, 08/23/2023, 06/04/2023, Additional history exists DTaP,Tdap,and [...] this encounter Medical Devices Implanted Type Area Senior Marketing Associate Device Identifier Shelf Expiration Date Model / Serial / Lot Suture Steel 6 B&S19 M654g - [id number] Implanted:Qty: 7 on 05/30/2021 by Uvaldo Fleming MD at OR [facility] N/A: Bridget ZHANG : [employer] 01/05/2026 [id number] / / [id number] Lipiodol Injection - [id number] Implanted:Qty: 2 on 09/06/[address] [facility] [employer] 10/06/2022 [id number] 1 -2 / [id number] / [id number] Lipiodol Injection - [id number] Implanted:Qty: 1 on 09/06/[address] [facility] [employer] 10/06/2022 [id number] 1 -2 / [id number] / [id number] documented as of this encounter Advance Directives [...] Advance Directives occurred with: Patient Care Teams Act Tutor Relationship Specialty Start Date End Date Lia Meadows MD [address] [facility] [place] [address] PCP - General Internal Medicine 04/06/21 documented as of this encounter
--- OUTSIDE RECORDS SUMMARY | 2024-03-23 15:30 | External Medical Summary | Summary of Care ---
Author Name Unknown Organization [facility] Address [address] [place] [address] Phone [phone] Care Team Providers Care Editor Producer Name Role Phone Lia Meadows MD Primary Care Provider [phone] Reason for Visit * Reason Comments eRx-Medication Refill Encounter Details Date Type Department Care Team (Late st Contact Info) Description 10/03/2023 Refill General Internal Medicine [facility] [place] [address] [facility] [place] [address] Lia Meadows MD 200 [facility] [place] [address] Type 2 diabetes mellitus with hemoglobin A1c goal of less than 8.0% ([facility]); Type 2 diabetes mellitus with stage 3a chronic kidney disease, unspecified whether prison insulin use ([facility]) Allergies Active Allergy Reactions Criticality Noted Date Comments Sulfa Antibiotics Edema Other Medium 02/01/2016 Other reaction(s): unknown Tramadol Nausea/vomiting 04/01/2021 documented as of this encounter (statuses as of 10/04/2023) Medications Medication Sig Dispensed Refills Start Date [...] 2, goal HbA1c < 7% ([facility]) Use as directed 4 times a day . Use up to 3-4 times a day as directed 100 Strip 5 11/21/2021 Active BD Pen Needle Zora U/F 32G X 4 MM (Insulin Pen Needle)Indications: Type 2 diabetes mellitus with hemoglobin A1c goal of less than 7.0% ([facility]) Use once daily with insulin 100 Each 5 03/20/2022 Active Aspirin 81 MG Oral Tablet Delayed Release Take 1 Tablet by mouth every other day. 90 Tablet 3 08/28/2022 Active Magnesium Chloride 64 MG Oral TabletIndications:C hronic kidney disease, stage 3a ([facility]) Take 1 Tablet by mouth in the morning. 30 Tablet 5 10/04/2022 Active Additional Information Patient not taking.Reported on 06/18/2023 Metoprolol Succinate ER 100 MG Oral Tablet Extended Release 24 Hour (toPROL XL)Indications:Chyl othorax, right,Coronary artery disease involving [place] coronary artery of [place] heart without angina pectoris,S/P CABG x 3,HFrEF (heart failure with reduced ejection fraction) ([facility]),Ischemic cardiomyopathy,PAF (paroxysmal atrial fibrillation) ([facility]),HTN, goal below 140/90,Dyslipidemia , goal LDL below 70,Cerebrovascular accident (CVA), unspecified mechanism ([facility]) TAKE BY MOUTH 1 TABLET IN THE [...] goal of less than 8.0% ([facility]),Type 2 diabetes mellitus with stage 3a chronic kidney disease, unspecified whether prison insulin use ([facility]) INJECT 1 SYRINGE SUBCUTANEOUSLY ONCE A WEEK 6 mL 0 09/19/2023 Active Insulin Glargine Solostar 100 UNIT/ML Subcutaneous Solution Pen-injector (Lantus SoloStar)Indication s:DM type 2, goal HbA1c < 7% ([facility]) INJECT 38 UNITS SUBCUTANEOUSLY DAILY BEFORE BEDTIME 0 09/18/2023 Active Atorvastatin Calcium 40 MG Oral Tablet (Lipitor)Indication s:Hyperlipidemia LDL goal <100 TAKE 1 TABLET BY MOUTH EVERY DAY 90 Tablet 1 09/28/2023 Active Trulicity 0.75 MG/0.5ML Subcutaneous Solution Pen-injector (Dulaglutide)Indica tions:Type 2 diabetes mellitus with stage 3b chronic kidney disease ([facility]) Inject 0.75 mg under the skin once a week. 2 mL 2 10/03/2023 Active documented as of this encounter (statuses as of 10/04/2023) Active Problems Problem Noted Date Diagnosed Date [...] as of this encounter (statuses as of 10/04/2023) Resolved Problems Problem Noted Date Diagnosed Date Resolved Date Type 2 diabetes mellitus wit h stage 3a chronic kidney disease 08/24/2022 06/21/2023 Overview: Per CKD protocol Chronic kidney disease, stage 3a 09/19/2021 06/21/2023 Overview: Per CKD protocol Dehydration 08/12/2021 08/20/[address] 08/01/2021 08/20/19 22 Diabetes mellitus with stage 3 chronic kidney disease 07/18/2021 08/24/2021 Overview: Per CKD protocol CKD (chronic kidney disease) stage 3, GFR 30-59 ml/min 05/27/2021 07/21/2021 Overview: Per CKD protocol Heart failure 05/05/2021 05/05/2021 documented as of this encounter (statuses as of 10/04/2023) Immunizations Name Administration Dates Next Due COVID-19 [...] encounter Miscellaneous Notes * Telephone Encounter - Vane Tavera [facility] - 10/04/2023 9:14 AM EDTRefused Prescriptions: Disp Refills Trulicity 1.5 MG/0.5ML Subcutaneous Soluti*4 mL 0 Sig: INJECT 1SYRINGE SUBCUTANEOUSLY ONCE A WEEKRefused By: VANE TAVERA WReason for Refusal: Duplicate Reques t documented in this encounter Plan of Treatment Upcoming Encounters Date Type Department Care Team (Latest Contact Info) Description 10/09/2023 8:30 AM EDT Office Visit Cardiology, [facility] [address] [place] [address] Zabrina Britton CRNP [address] [place] [address] 10/23/2023 9:30 AM EDT Hospital Encounter ENDO OSS, Endoscopy Room [facility] [address] [place] [phone] Zabrina Ya DO [address] [place] [address] 10/23/2023 9:30 AM EDT - 10/23/2023 10:00 AM EDT Surgery ENDO OSS, Endoscopy Room [facility] [address] [place] [phone] Zabrina Ya DO [address] [place] [address] ESOPHAGOGASTRODUODENOSCOPY (EGD), FLEXIBLE, TRANSORAL, DIAGNOSTIC 11/13/2023 9:40 AM EDT Office Visit General Internal Medicine [facility] [address] [facility] [place], [place] [address] Lia Meadows MD [address] [facility] [place], [place] [address] 11/19/2023 3:00 PM EDT Office Visit Hepatology, [facility] [address] [facility] [address] Zabrina Ya DO [address] [facility] [place] [address] 12/21/2023 9:15 AM EDT Imaging Radiology [facility] [address] [facility] [address] 06/03/2024 2:40 PM EST Office Visit Nephrology, [facility] [address] [facility] [place], [place] [address] Breezy Meadows MD [address] [facility] [place], [place] [address] Scheduled Procedures Name Priority Associated Diagnoses Date/Ti me ESOPHAGOGASTRODUODENOSCOPY ( EGD), FLEXIBLE, TRANSORAL, DIAGNOSTIC Alcoholic cirrhosis of liver with ascites (HCC) 10/23/2023 9:30 AM EDT Health Maintenance Due Date Last Done Comments Zoster Vaccines (1 of 2) 1996 Hepatitis B (1 of 3 - Risk 3-dose series) 2006 COVID-19 Vaccine ( season) 2023 05/09/2021, 10/12/2020, 09/22/2020 CKD PHOS USE SMARTSET 01892 09/28/2023 03/2 08/2022, 09/04/2022, 07/26/2022, Additional history exists Diabetic Eye Exam 11/09/2023 11/08/2022, , 11/08/2022, Additional history exists Depression Screening 12/01/2023 11/30/2022 GFR 02/21/2024 08/23/2023, 12/0 12/2022, 06/04/2023, Additional history exists HbA1c 02/21/2024 08/23/2023, 02/07, 11/30/2022, Additional history exists Diabetic Foot Exam 06/13/2024 06/13/2023, 1 , 05/05/2021 TSH 06/13/2024 06/13/2023, 11/07, 12/07/2021, Additional history exists Albumin/Creatinine Ratio 08/23/2024 024, 07/26/2022, 05/05/2021 CKD HGB USE SMARTSET 95014 08/23/202408/23, 08/23/2023, 06/04/2023, Additional history exists DTaP,Tdap,and [...] this encounter Medical Devices Implanted Type Area Guest Relations Executive Device Identifier Shelf Expiration Date Model / Serial / Lot Suture Steel 6 B&S19 M654g - [id number] Implanted:Qty: 7 on 05/30/2021 by Uvaldo Fleming MD at OR [facility] N/A: Sternum JNPérez : [employer] 01/05/2026 M654G / / [id number] Lipiodol Injection - [id number] Implanted:Qty: 2 on 09/06/2021 at [facility] [employer] 10/06/2022 56904-115 1 -2 / [id number] / [id number] Lipiodol Injection - [id number] Implanted:Qty: 1 on 09/06/2021 at [facility] [employer] 10/06/2022 [id number] 1 -2 [id number] / [id number] documented as of this encounter Visit Diagnoses Diagnosis Type 2 diabetes mellitus with stage 3a chronic kidney disease, unspecified whether prison insulin use (HCC) Alcoholic cirrhosis of liver [...] Advance Directives occurred with: Patient Care Teams Editor Producer Relationship Specialty Start Date End Date Lia Meadows MD [address] [address] PCP - General Internal Medicine 04/06/21 documented as of this encounter
--- OUTSIDE RECORDS SUMMARY | 2024-03-23 15:30 | External Medical Summary ---
Author Name Unknown Address Unknown Organization : Laboratory Report Ordering Provider Test Date Status [facility] 10/23/2023 09:10:22 Final Observation Date Value Abnormality Reference (Units ) Status Glucose Point of Care 10/23/2023 09:10:22 117 70-120 (mg/dL) Final Performing Location
--- OUTSIDE RECORDS SUMMARY | 2024-03-23 15:30 | External Medical Summary | Summary of Care ---
Author Name Unknown Organization [facility] Address [address] [place] [address] Phone [phone] Care Team Providers Care Professor Of Environmental Studies Name Role Phone Lia Meadows MD Primary Care Provider [phone] Reason for Visit * Reason Onset Date Comments Med Request 10/03/2023 Encounter Details Date Type Department Care Team (Late st Contact Info) Description 10/03/2023 Telephone Ancillary [facility] [place] [address] [facility] [place] [address] Karie Fisher, JOHN Med Request Allergies Active Allergy Reactions Criticality Noted Date Comments Sulfa Antibiotics Edema Other Medium 02/01/2016 Other reaction(s): unknown Tramadol Nausea/vomiting 04/01/2021 documented as of this encounter (statuses as of 11/06/2023) Medications Medication Sig Dispensed Refills Start Date [...] type 2, goal HbA1c < 7% ([facility]) Use as directed 4 times a day . Use up to 3-4 times a day as directed 100 Strip 5 11/21/2021 Active BD Pen Needle Zora U/F 32G X 4 MM (Insulin Pen Needle)Indications: Type 2 diabetes mellitus with hemoglobin A1c goal of less than 7.0% ([facility]) Use once daily with insulin 100 [...] A1c goal of less than 8.0% ([facility]),Type 2 diabetes mellitus with stage 3a chronic kidney disease, unspecified whether snf insulin use ([facility]) INJECT 1 SYRINGE SUBCUTANEOUSLY ONCE A WEEK 6 mL 0 09/19/2023 Active Additional Information Patient not taking.Reported on 10/16/2023 Insulin Glargine Solostar 100 UNIT/ML Subcutaneous Solution Pen-injector (Lantus SoloStar)Indication s:DM type 2, goal HbA1c < 7% ([facility]) INJECT 38 UNITS SUBCUTANEOUSLY DAILY BEFORE BEDTIME 0 09/18/2023 Active Atorvastatin Calcium 40 MG Oral Tablet (Lipitor)Indication s:Hyperlipidemia LDL goal <100 TAKE 1 TABLET BY MOUTH EVERY DAY 90 Tablet 1 09/28/2023 Active Additional Information Patient taking differently: 40 mg Oral Daily(AM), Reported on 10/16/2023 documented as of this encounter (statuses as of 11/06/2023) Active Problems Problem Noted Date Diagnosed Date [...] as of this encounter (statuses as of 11/06/2023) Resolved Problems Problem Noted Date Diagnosed Date [...] as of this encounter (statuses as of 11/06/2023) Immunizations Name Administration Dates Next Due COVID-19 [...] encounter Miscellaneous Notes * Telephone Encounter - Karie Fisher RN - 10/03/2023 3:32 PM EDT Informed pt that Anila dozier Favian Ross has Truliciy 0.[address] Meadows will send prescription in, however he is to increase glargine to 40 units to avoid hyperglycemia and watch sugarcarefully. Pt expressed understanding. documented in this encounter Plan of Treatment Upcoming Encounters Date Type Department Care Team (Late st Contact Info) Description 11/13/2023 9:40 AM EDT Office Visit General Internal Medicine [facility] [address] [place] [address] Lia Meadows MD 200 [facility] [place] [address] 11/19/2023 3:00 PM EDT Office Visit Hepatology, [facility] [address] [facility] [place] [address] Zabrina Ya DO 132 [facility] [place] [address] 12/21/2023 9:00 AM EDT Imaging Radiology [facility] [address] [facility] [place] [address] 03/28/2024 8:30 AM EDT Office Visit Cardiology, [facility] [address] [facility] [place] [address] Zabrina Britton CRNP [address] [facility] [place] [address] 06/03/2024 2:40 PM EST Office Visit Nephrology, [facility] [address] [place] [address] Breezy Meadows MD [facility] [place] [address] Health Maintenance Due Date Last Done Comments Zoster Vaccines (1 of 2) 1996 Hepatitis B (1 of 3 - Risk 3-dose series) 2006 COVID-19 Vaccine ( season) 2023 05/09/2021, 10/12/2020, 09/22/2020 CKD PHOS USE SMARTSET 05446 09/28/202309/07, 09/04/2022, 07/26/2022, Additional history exists Diabetic Eye Exam 11/09/2023 11/08/2022, , 11/08/2022, Additional history exists Depression Screening 12/01/2023 11/30/2022 GFR 02/21/2024 08/23/2023, 12/12/2022, 06/04/2023, Additional history exists HbA1c 02/21/2024 08/23/2023, 02/07, 11/30/2022, Additional history exists Diabetic Foot Exam 06/13/2024 06/13/2023, 1 , 05/05/2021 TSH 06/13/2024 06/13/2023, 11/07, 12/07/2021, Additional history exists Albumin/Creatinine Ratio 08/23/2024 024, 07/26/2022, 05/05/2021 CKD HGB USE SMARTSET 92684 08/23/202408/23, 08/23/2023, 06/04/2023, Additional history exists DTaP,Tdap,and [...] this encounter Medical Devices Implanted Type Area Global Chief Creative Officer Device Identifier Shelf Expiration Date Model / Serial / Lot Suture Steel 6 B&S19 M654g - [id number] Implanted:Qty: 7 on 05/30/2021 by Uvaldo Fleming MD at OR [facility] N/A: Sternum JNJ : [employer] 01/05/2026 M654G / / [id number] Lipiodol Injection - [id number] Implanted:Qty: 2 on 09/06/2021 at [facility] [employer] 10/06/2022 [id number] 1 -2 / [id number] Lipiodol Injection - [id number] Implanted:Qty: 1 on 09/06/2021 at [facility] [employer] 10/06/2022 [id number] 1 -2 / [id number] / [id number] documented as of this encounter Advance Directives [...] Advance Directives occurred with: Patient Care Teams Professor Of Environmental Studies Relationship Specialty Start Date End Date Lia Meadows MD 200 [facility] [place] [address] PCP - General Internal Medicine 04/06/21 documented as of this encounter
--- OUTSIDE RECORDS SUMMARY | 2024-03-23 15:30 | External Medical Summary | Summary of Care ---
Author Name Unknown Organization [facility] Address [address] [place] [address] Phone [phone] Care Team Providers Care Molder Shoulder Pad Name Role Phone Lia Meadows MD Primary Care Provider [phone] Reason for Visit * Reason Comments eRx-Medication Refill Encounter Details Date Type Department Care Team (Late st Contact Info) Description 09/17/2023 Refill General Internal Medicine [facility] [place] [address] [facility] [place] [address] Lia Meadows MD [address] [place] [address] Type 2 diabetes mellitus with hemoglobin A1c goal of less than 8.0% ([facility]); Type 2 diabetes mellitus with stage 3a chronic kidney disease, unspecified whether intermediate insulin use ([facility]) Allergies Active Allergy Reactions Criticality Noted Date Comments Sulfa Antibiotics Edema Other Medium 02/01/2016 Other reaction(s): unknown Tramadol Nausea/vomiting 04/01/2021 documented as of this encounter (statuses as of 09/27/2023) Medications Medication Sig Dispensed Refills Start Date [...] Nausea. 30 Tablet 0 11/22/19 22 Active OnePicturae Ultra Blue In Vitro Strip (Glucose Blood)Indications: DM type 2, goal HbA1c < 7% ([facility]) Use as directed 4 times a day . Use up to 3-4 times a day as directed 100 Strip 5 11/22/19 22 Active BD Pen Needle Zora U/F 32G X 4 MM (Insulin Pen Needle)Indications :Type 2 diabetes mellitus with hemoglobin A1c goal of less than 7.0% ([facility]) Use once daily with insulin 100 Each 5 03/20/20 22 Active Aspirin 81 MG Oral Tablet Delayed Release Take 1 Tablet by mouth every other day. 90 Tablet 3 08/28/19 23 Active Atorvastatin Calcium 40 MG Oral Tablet (Lipitor)Danitzatio ns:Hyperlipidemia LDL goal <100 TAKE 1 TABLET BY MOUTH EVERY DAY 90 Tablet 3 09/30/19 23 Active Additional Information Patient taking differently: 40 mg Oral Daily(AM), Reported on 06/18/2023 Magnesium Chloride 64 MG Oral TabletIndications: Chronic kidney disease, stage 3a ([facility]) Take 1 Tablet by mouth in the morning. 30 Tablet 5 10/05/19 23 Active Additional Information Patient not taking.Reported on 06/18/2023 Metoprolol Succinate ER 100 MG Oral Tablet Extended Release 24 Hour (toPROL XL)Indications:Eugenie lothorax, right,Coronary artery disease involving [place] coronary artery of [place] heart without angina pectoris,S/P CABG x 3,HFrEF (heart failure with reduced ejection fraction) ([facility]),Ischemic cardiomyopathy,PAF (paroxysmal atrial fibrillation) ([facility]),HTN, goal below 140/90,Dyslipidemi a, goal LDL below 70,Cerebrovascular accident (CVA), unspecified mechanism ([facility]) TAKE BY MOUTH 1 TABLET IN THE MORNING AND 1 TABLET BEFORE BEDTIME. 180 Tablet 3 10/17/19 23 Active Levothyroxine Sodium 88 MCG Oral Tablet (Levoxyl)Danitzatio ns:Acquired hypothyroidism TAKE 1 TABLET BY MOUTH IN THE MORNING AT LEAST 30 MINUTES PRIOR TO BREAKFAST AND OTHER MEDS 90 Tablet 3 12/30/19 Active Albumin Human 25 % Intravenous Solution [...] a rate of 100mL/hr. 200 mL 0 01/02/20 Active Additional Information Patient not taking.Reported on 06/13/2023 Finasteride 5 MG Oral Tablet (Proscar) Take 1 Tablet by mouth in the morning. 0 12/20/19 Active Tamsulosin HCl 0.4 MG Oral Capsule (Flomax) Take 1 Capsule by mouth in the morning. 0 12/20/19 Active Spironolactone 50 MG Oral Tablet (Aldactone)Indicat ions:Cirrhosis of liver with ascites, unspecified hepatic cirrhosis type (HCC) Take 1 Tablet by mouth in the morning. 90 Tablet 4 02/28/20 Active Additional Information Patient taking differently:50 mg OralDaily(Non-Specified), Indications: after breakfast, Reported on 06/18/2023 Senna 8.6 MG Oral CapsuleIndications :Other constipation Take 1 Capsule by mouth in the morning. Add second tab if constipation and hold for 1 day if diarrhea. 0 06/13/20 Active Esomeprazole Magnesium 20 MG Oral Capsule Delayed Release (NexIUM)Indication s:Gastroesophageal reflux disease without esophagitis Take 1 Capsule by mouth at bedtime. 90 Capsule 3 06/13/20 Active Additional Information Patient not taking.Reported on 07/06/2023 Gabapentin 100 MG Oral Capsule (Neurontin)Indicat ions:Neck pain Take 2 Capsules by mouth at bedtime. 180 Capsule 3 06/13/20 Active Furosemide 20 MG Oral Tablet (Lasix)Indications :Cirrhosis of liver with ascites, unspecified hepatic cirrhosis type (HCC) TAKE 2 TABLETS BY MOUTH EVERY MORNING 180 Tablet 1 06/25/20 Active Additional Information Patient taking differently: 09/14/23 Pt states currently only taking 1 tablet daily in AM, Reported on 09/14/2023 Docusate Sodium 100 MG Oral Capsule (Colace)Indication [...] BEDTIME 180 Tablet 3 09/10/19 24 Active Additional Information Patient not taking.Reported on 09/14/2023 Omeprazole 20 MG Oral Capsule Delayed Release (PriLOSEC) Take 1 Capsule by mouth in the morning. 0 Active Trulicity 1.5 MG/0.5ML Subcutaneous Solution Pen-injector (Dulaglutide)Indic ations:Type 2 diabetes mellitus with hemoglobin A1c goal of less than 8.0% (HCC),Type 2 diabetes mellitus with stage 3a chronic kidney disease, unspecified whether superintendent container terminal insulin use (HCC) INJECT 1 SYRINGE SUBCUTANEOUSLY ONCE A WEEK 6 mL 0 09/19/19 24 Active Trulicity 1.5 MG/0.5ML Subcutaneous Solution Pen-injector (Dulaglutide)Indic ations:Type 2 diabetes mellitus with hemoglobin A1c goal of less than 8.0% (HCC),Type 2 diabetes mellitus with stage 3a chronic kidney disease, unspecified whether intermediate insulin use (HCC) INJECT 1.5MG SUBCUTANEOUSLY ONCE A WEEK 4 mL 1 07/10/19 24 024 Discontinued documented as of this encounter (statuses as of 09/27/2023) Active Problems Problem Noted Date Diagnosed Date [...] as of this encounter (statuses as of 09/27/2023) Resolved Problems Problem Noted Date Diagnosed Date [...] as of this encounter (statuses as of 09/27/2023) Immunizations Name Administration Dates Next Due COVID-19 [...] encounter Miscellaneous Notes * Telephone Encounter - Evon Forrester PHARM Tech - 09/27/2023 1:08 PM EDT Patient called in today stating that he is unable to get this medication at any pharmacy. He has some left over trulicity at his house that he is wondering if he can use until he gets the current dosage in. I warm transferred patient to [facility] Yasmin Thank you, Evon Forrester [facility]) 09/27/2023,1:09 PM * Telephone Encounter - [facility] - 09/19/2023 9:40 AM EDTSigned Prescriptions: Disp Refills Trulicity 1.5 MG/0.5ML Subcutaneous Soluti*6 mL 0 Sig: INJECT 1 SYRINGE SUBCUTANEOUSLY ONCE A WEEK Authorizing Provider: LIA MEADOWS Ordering User: CASA JASSO * Telephone Encounter - [facility] - 09/19/2023 9:40 AM EDT Approved until OV. Thanks, [facility] Clinical Pharmacist [facility] (Formerly Telepharmacy) [phone] 09/19/2023, 9:40 AM documented in this encounter Plan of Treatment Upcoming Encounters Date Type Department Care Team (Latest Contact Info) Description 10/09/2023 8:30 AM EDT Office Visit Cardiology, [address] [place], [place] [address] Zabrina Britton CRNP [address] [place], [place] [address] 10/23/2023 2:30 PM EDT Hospital Encounter [facility]O [facility], Endoscopy Room [facility] [address] [place] [id number] Zabrina Ya, [address] [place], [place] [address] 10/23/2023 2:30 PM EDT - 10/23/2023 3:00 PM EDT Surgery ENDO [facility], Endoscopy Room [facility] [address] [place] [address] Zabrina Ya DO [address] [place] [address] ESOPHAGOGASTRODUODENOSCOPY (EGD), FLEXIBLE, TRANSORAL, DIAGNOSTIC 11/13/2023 9:40 AM EDT Office Visit General Internal Medicine [facility] [address] [place] [address] Lia Meadows MD [address] [place] [address] 11/19/2023 3:00 PM EDT Office Visit Hepatology, [facility] [address] [place] [address] Zabrina Ya DO [address] [place] [address] 12/21/2023 9:15 AM EDT Imaging Radiology [facility] [address] [place] [address] 06/03/2024 2:40 PM EST Office Visit Nephrology, [facility] [address] [place] [address] Breezy Meadows MD [address] [facility] [place] [address] Scheduled Procedures Name Priority Associated Diagnoses Date/Ti me ESOPHAGOGASTRODUODENOSCOPY ( EGD), FLEXIBLE, TRANSORAL, DIAGNOSTIC Alcoholic cirrhosis of liver with ascites (HCC) 10/23/2023 2:30 PM EDT Health Maintenance Due Date Last Done Comments Zoster Vaccines (1 of 2) 1996 Hepatitis B (1 of 3 - Risk 3-dose series) 2006 COVID-19 Vaccine ( season) 2023 05/09/2021, 10/12/2020, 09/22/2020 CKD PHOS USE SMARTSET 79776 09/28/202309/07, 09/04/2022, 07/26/2022, Additional history exists Diabetic Eye Exam 11/09/2023 11/08/2022, , 11/08/2022, Additional history exists Depression Screening 12/01/2023 11/30/2022 GFR 02/21/2024 08/23/2023, 12/0 12/2022, 06/04/2023, Additional history exists HbA1c 02/21/2024 08/23/2023, 02/07, 11/30/2022, Additional history exists Diabetic Foot Exam 06/13/2024 06/13/2023, 1 , 05/05/2021 TSH 06/13/2024 06/13/2023, 11/07, 12/07/2021, Additional history exists Albumin/Creatinine Ratio 08/23/2024 024, 07/26/2022, 05/05/2021 CKD HGB USE SMARTSET 70888 08/23/202408/23, 08/23/2023, 06/04/2023, Additional history exists DTaP,Tdap,and [...] this encounter Medical Devices Implanted Type Area [employer] Floorperson Device Identifier Shelf Expiration Date Model / Serial / Lot Suture Steel 6 B&S19 M654g - [id number] Implanted:Qty: 7 on 05/30/2021 by Uvaldo Fleming MD at OR [facility] N/A: Sternum JNJ : [employer] 01/05/2026 M654G / / [id number] Lipiodol Injection - [id number] Implanted:Qty: 2 on 09/06/2021 at [facility] [employer] 10/06/2022 21618-901 1 -2 / [id number] / [id number] Lipiodol Injection - [id number] Implanted:Qty: 1 on 09/06/2021 at [facility] [employer] 10/06/2022 87850-733 1 -2 / [id number] / [id number] documented as of this encounter Visit Diagnoses Diagnosis Type 2 diabetes mellitus with stage 3a chronic kidney disease, unspecified whether superintendent container terminal insulin use (HCC) Alcoholic cirrhosis of liver [...] Advance Directives occurred with: Patient Care Teams Molder Shoulder Pad Relationship Specialty Start Date End Date Lia Meadows MD [address] [place] [address] PCP - General Internal Medicine 04/06/21 documented as of this encounter
--- OUTSIDE RECORDS SUMMARY | 2024-03-23 15:30 | External Medical Summary | Summary of Care ---
Author Name Unknown Organization [facility] Address [address] [place] [address] Phone [phone] Care Team Providers Care Fur Mixer Operator Name Role Phone Lia Meadows MD Primary Care Provider [phone] Reason for Visit * Reason Comments eRx-Medication Refill Encounter Details Date Type Department Care Team (Late st Contact Info) Description 10/15/2023 Refill Card[facility], [facility] [address] [facility] [address] Zabrina Britton CRNP [address] [address] Coronary artery disease involving [place] coronary artery of [place] heart without angina pectoris*; Ischemic cardiomyopathy; PAF (paroxysmal atrial fibrillation) ([facility]) Allergies Active Allergy Reactions Criticality Noted Date [...] DM type 2, goal HbA1c < 7% ([facility]) Use as directed 4 times a day . Use up to 3-4 times a day as directed 100 Strip 5 11/22/19 22 Active BD Pen Needle Zora U/F 32G X 4 MM (Insulin Pen Needle)Indications :Type 2 diabetes mellitus with hemoglobin A1c goal of less than 7.0% ([facility]) Use once daily with insulin 100 Each 5 03/20/20 22 Active Levothyroxine Sodium 88 MCG Oral Tablet [...] goal of less than 8.0% ([facility]),Type 2 diabetes mellitus with stage 3a chronic kidney disease, unspecified whether fci insulin use ([facility]) INJECT 1 SYRINGE SUBCUTANEOUSLY ONCE A WEEK 6 mL 0 09/19/19 24 Active Insulin Glargine Solostar 100 UNIT/ML Subcutaneous Solution Pen-injector (Lantus SoloStar)Indicatio ns:DM type 2, goal HbA1c < 7% ([facility]) INJECT 38 UNITS SUBCUTANEOUSLY DAILY BEFORE BEDTIME 0 09/18/19 24 Active Atorvastatin Calcium 40 MG Oral Tablet (Lipitor)Indicatio ns:Hyperlipidemia LDL goal <100 TAKE 1 TABLET BY MOUTH EVERY DAY 90 Tablet 1 09/28/19 24 Active Trulicity 0.75 MG/0.5ML Subcutaneous Solution Pen-injector (Dulaglutide)Indic ations:Type 2 diabetes mellitus with stage 3b chronic kidney disease ([facility]) Inject 0.75 mg under the skin once a week. 2 mL 2 10/03/19 24 Active Furosemide 20 MG Oral Tablet (Lasix)Indications :Cirrhosis of liver with ascites, unspecified hepatic cirrhosis type ([facility]) Take 1 Tablet by mouth in the morning. 180 Tablet 1 10/09/19 24 Active Metoprolol Succinate ER 100 MG Oral Tablet Extended Release 24 Hour (toPROL XL)Indications:Eugenie lothorax, right,Coronary artery disease involving [place] coronary artery of [place] heart without angina pectoris,S/P CABG x 3,HFrEF (heart failure with reduced ejection fraction) ([facility]),Ischemic cardiomyopathy,PAF (paroxysmal atrial fibrillation) ([facility]),HTN, goal below 140/90,Dyslipidemi a, goal LDL below 70,Cerebrovascular accident (CVA), unspecified mechanism ([facility]) TAKE 1 TABLET BY MOUTH EVERY DAY IN THE MORNING AND BEFORE BEDTIME 180 Tablet 3 10/15/19 24 Active Aspirin Low Dose 81 MG Oral Tablet Delayed Release (aspirin enteric coated)Indications :Coronary artery disease involving [place] coronary artery of [place] heart without angina pectoris,Ischemic cardiomyopathy,PAF (paroxysmal atrial fibrillation) (HCC) TAKE 1 TABLET BY MOUTH EVERY DAY IN THE MORNING 90 Tablet 3 10/15/19 24 Active Aspirin 81 MG Oral Tablet Delayed Release Take 1 Tablet by mouth every other day. 90 Tablet 3 08/28/19 23 024 Discontinued documented as of this [...] Encounter - Long Santos CRNP - 10/15/2023 2:47 PM EDTSigned Prescriptions: Disp Refills Aspirin Low Dose 81 MG Oral Tablet Delayed*90 Tab*3 Sig: TAKE 1 TABLET BY MOUTH EVERY DAY IN THE MORNING Authorizing Provider: LONG SANTOS * Telephone Encounter - Kacy Loja CMA - 10/15/2023 1:37 PM EDTPending Prescriptions: Disp Refills Aspirin Low Dose 81 MG Oral Tablet Delayed*90 Tab*3 Sig: TAKE 1 TABLET BY MOUTH EVERY DAY IN THE MORNING * Telephone Encounter - Kacy Loja CMA - 10/15/2023 1:37 PM EDT Did you pend patient's preferred pharmacy and medication before forwarding?yes Pharmacy: [id number] Pending Prescriptions: Disp Refills Aspirin Low Dose 81 MG Oral Tablet [place]*90 Tab*3 Sig: TAKE 1 TABLET BY MOUTH EVERY DAY IN THE MORNING Last Visit: 10/09/2023 (in office), 12/16/2021 (telemedicine) Next Visit: 03/28/2024 If no future appointments scheduled, and last appointment is greater than a year ago, please schedule patient for a follow-up appointment Last date the medication was ordered: 08-28-2022 Is this request for a controlled substance?No [...] 10/23/2023 9:30 AM EDT Hospital Encounter ENDO [facility], Endoscopy Room [facility] [address] [place] [address] Zabrina Ya DO [address] [place] [address] 10/23/2023 9:30 AM EDT - 10/23/2023 10:00 AM EDT Surgery [facility], Endoscopy Room [facility] [address] [place] [phone] Zabrina Ya DO [address] [place] [address] ESOPHAGOGASTRODUODENOSCOPY (EGD), FLEXIBLE, TRANSORAL, DIAGNOSTIC 11/13/2023 9:40 AM EDT Office Visit General Internal Medicine [facility] [address] [facility] [place], [place] [address] Lia Meadows MD [address] [facility] [place] [address] 11/19/2023 3:00 PM EDT Office Visit Hepatology, [facility] [address] [place] [address] Zabrina Ya DO [address] [place] [address] 12/21/2023 9:15 AM EDT Imaging Radiology [facility] [address] [place] [address] 03/28/2024 8:30 AM EDT Office Visit Cardiology, [facility] [address] [place] [address] Zabrina Britton CRNP [address] [place] [address] 06/03/2024 2:40 PM EST Office Visit Nephrology, [facility] [address] [place] [address] Breezy Meadows MD [address] [facility] [place] [address] Scheduled Procedures Name Priority Associated Diagnoses Date/Ti me ESOPHAGOGASTRODUODENOSCOPY ( EGD), FLEXIBLE, TRANSORAL, DIAGNOSTIC Alcoholic cirrhosis of liver with ascites (HCC) 10/23/2023 9:30 AM EDT Health Maintenance Due Date Last Done Comments Zoster Vaccines (1 of 2) 1996 Hepatitis B (1 of 3 - Risk 3-dose series) 2006 COVID-19 Vaccine ( season) 2023 05/09/2021, 10/12/2020, 09/22/2020 CKD PHOS USE SMARTSET 57939 09/28/202309/07, 09/04/2022, 07/26/2022, Additional history exists Diabetic Eye Exam 11/09/2023 11/08/2022, , 11/08/2022, Additional history exists Depression Screening 12/01/2023 11/30/2022 GFR 02/21/2024 08/23/2023, 12/12/2022, 06/04/2023, Additional history exists HbA1c 02/21/2024 08/23/2023, 02/07, 11/30/2022, Additional history exists Diabetic Foot Exam 06/13/2024 06/13/2023, 1 , 05/05/2021 TSH 06/13/2024 06/13/2023, 11/07, 12/07/2021, Additional history exists Albumin/Creatinine Ratio 08/23/2024 024, 07/26/2022, 05/05/2021 CKD HGB USE SMARTSET 34084 08/23/202408/23, 08/23/2023, 06/04/2023, Additional history exists DTaP,Tdap,and [...] this encounter Medical Devices Implanted Type Area Neurology Technician Device Identifier Shelf Expiration Date Model / Serial / Lot Suture Steel 6 B&S19 M654g - [id number] Implanted:Qty: 7 on 05/30/2021 by Uvaldo Fleming MD at [facility] N/A: Sternum [employer] : [employer] 01/05/2026 M654G / / [id number] Lipiodol Injection - [id number] Implanted:Qty: 2 on 09/06/2021 at [facility] [employer] 10/06/2022 94713-926 1 -2 / [id number] / [id number] Lipiodol Injection - [id number] Implanted:Qty: 1 on 09/06/2021 at [facility] [employer] 10/06/2022 [id number] 1 -2 / [id number] / [id number] documented as of this encounter Visit Diagnoses Diagnosis Coronary artery disease involving [place] coronary artery of [place] tribe heart without angina pectoris- Primary Ischemic cardiomyopathy Other specified forms of chronic ischemic heart disease PAF (paroxysmal atrial fibrillation) (HCC) Atrial fibrillation Alcoholic cirrhosis of liver with ascites (HCC) [...] Advance Directives occurred with: Patient Care Teams Fur Mixer Operator Relationship Specialty Start Date End Date Lia Meadows MD [address] [facility] [place] [address] PCP - General Internal Medicine 04/06/21 documented as of this encounter
--- OUTSIDE RECORDS SUMMARY | 2024-03-23 15:30 | External Medical Summary | Summary of Care ---
Author Name Unknown Organization [facility] Address [address] [place] [address] Phone [phone] Care Team Providers Care Emergency Room Orderly Name Role Phone Lia Meadows MD Primary Care Provider [phone] Reason for Visit * Auth/Cert Specialty Diagnoses / Procedures Referred By Ton ignacio Referred To Contact Diagnoses Alcoholic cirrhosis of liver with ascites (HCC) Alcoholic cirrhosis of liver with ascites (HCC) [K70.31] Procedures EGD, FLEXIBLE, DIAGNOSTIC ESOPHAGOGASTRODUODENOSCOPY (EGD), FLEXIBLE, TRANSORAL, DIAGNOSTIC Zabrina Ya DO [address] [place] [address] [facility] [address] [place] [phone] Referral ID Status Reason Start Date Expiration Date Visits Re quested Visits Authorized [id number] Encounter Details Date Type Department Care Team (Latest Contact Info) Description 10/23/2023 8:17 AM EDT - 10/23/2023 11:03 AM EDT Hospital Encounter [facility], Endoscopy Room [facility] [address] [place] [phone] Zabrina Ya DO [address] [place] [address] Upper GI Endoscopy Discharge Disposition: Home - Self Care Allergies Active Allergy Reactions Criticality Noted Date Comments Sulfa Antibiotics Edema Other Medium 02/01/2016 Other reaction(s): unknown Tramadol Nausea/vomiting 04/01/2021 documented as of this encounter (statuses as of 10/23/2023) Medications Medication Sig Dispensed Refills Start Date [...] hemoglobin A1c goal of less than 7.0% (HCC) Use once daily with insulin 100 Each [...] of less than 8.0% ([facility]),Type 2 diabetes mellitus with stage 3a chronic kidney disease, unspecified whether assisted insulin use ([facility]) INJECT 1 SYRINGE SUBCUTANEOUSLY ONCE A WEEK 6 mL 0 09/19/2023 Active Additional Information Patient not taking.Reported on 10/16/2023 Insulin Glargine Solostar 100 UNIT/ML Subcutaneous Solution Pen-injector (Lantus SoloStar)Indication s:DM type 2, goal HbA1c < 7% ([facility]) INJECT 38 UNITS SUBCUTANEOUSLY DAILY BEFORE BEDTIME 0 09/18/2023 Active Trulicity 0.75 MG/0.5ML Subcutaneous Solution Pen-injector [...] (toPROL XL)Indications:Chyl othorax, right,Coronary artery disease involving telida coronary artery of telida heart without angina pectoris,S/P CABG x 3,HFrEF [...] (aspirin enteric coated)Indications: Coronary artery disease involving telida coronary artery of telida heart without angina pectoris,Ischemic cardiomyopathy,PAF (paroxysmal atrial fibrillation) ([facility]) TAKE 1 TABLET BY MOUTH EVERY DAY IN THE MORNING 90 Tablet 3 10/15/2023 Active Additional Information Patient taking differently: 81 mg Oral EVERY OTHER DAY, Indications: sunday,wednesdays,fridays, Reported on 10/16/2023 documented as of this encounter (statuses as of 10/23/2023) Active Problems Problem Noted Date Diagnosed Date [...] as of this encounter (statuses as of 10/23/2023) Resolved Problems Problem Noted Date Diagnosed Date [...] as of this encounter (statuses as of 10/23/2023) Immunizations Name Administration Dates Next Due COVID-19 [...] Sign Reading Time Taken Comments Blood Pressure 113/56 10/23/2023 10:45 AM EDT Pulse 80 10/23/2023 10:45 AM EDT Temperature 36.5 C (97.7 F) 10/23/2023 10:45 AM E DT Respiratory Rate 18 10/23/2023 10:45 AM EDT Oxygen Saturation 97% 10/23/2023 10:45 AM EDT Inhaled Oxygen Concentration - - Weight 75.3 kg (166 lb) 10/23/2023 9:13 AM EDT Height 177.8 cm (5' 10") 10/23/2023 9:13 AM EDT Body Mass Index 23.82 10/23/2023 9:13 AM EDT documented in this encounter Functional [...] No 11/10/2021 documented as of this encounter H&P Notes * Zabrina Ya, DO - 10/23/2023 9:36 AM EDT Endoscopy Pre-Procedure Assessment Name: Norris Francois Date: 10/23/2023 Time: 9:36 AM Procedure: Upper GI Endoscopy; with Indication(s) of variceal surveillance with possible banding Endoscopy Pre-Procedure Assessment: Prior to the procedure, the patient was identified. The patient's history, medications and allergies were reviewed as per the Anesthesia Assessment. The patient is competent. The risks and benefits of the proposed procedure and the planned sedation were discussed with the patient. All questions were answered and informed consent for the procedure was obtained. This patient has undergone a preprocedural evaluation. A determination has been made to proceed with the planned procedure under [facility] procedural guidelines and the [facility] Non-Emergent, Elective Medical Services and Treatment Recommendations (published on 10-14-19). The community and hospital prevalence of COVID-19 has been discussed as well as this patient's specific risks associated with SARS-CoV-19 infection. Based upon the clinical acuity and patient-specific care considerations, this procedure is deemed a Tier II - Intermediate acuity treatment or service with either progression or the threat of progressive disease related to the delay in treatment. Not providing the service has the potential for increasing morbidity or mortality. BP 141/66 | Pulse 77 | Temp 36.4 C (97.5 F) (Tympanic) | Resp 20 | Ht 1.778 m (5' 10") | Wt 75.3 kg (166 lb) | SpO2 100% | BMI 23.82 kg/m | BSA 1.93 m Prior to Admission medications Medication Sig Last Dose Discont. Aspirin Low Dose 81 MG Oral Tablet Delayed Release (aspirin enteric coated) TAKE 1 TABLET BY MOUTH EVERY DAY IN THE MORNING Patient taking differently: Take 1 Tablet by mouth every other day. 10/22/2023 Metoprolol Succinate ER 100 MG Oral Tablet Extended Release 24 Hour (toPROL XL) TAKE 1 TABLET BY MOUTH EVERY DAY IN THE MORNING AND BEFORE BEDTIME 10/22/2023 Furosemide 20 MG Oral Tablet (Lasix) Take 1 Tablet by mouth in the morning. 10/22/2023 Trulicity 0.75 MG/0.5ML Subcutaneous Solution Pen-injector (Dulaglutide) Inject 0.75 mg under the skin once a week. Patient taking differently: Inject 0.75 mg under the skin once a week. Past Week Insulin Glargine Solostar 100 UNIT/ML Subcutaneous Solution Pen-injector (Lantus SoloStar) INJECT 38 UNITS SUBCUTANEOUSLY DAILY BEFORE BEDTIME 10/22/2023 Docusate Sodium 100 MG Oral Capsule (Colace) TAKE 1 CAPSULE BY MOUTH EVERY EVENING. INCREASE TO TWICE A DAY FOR CONSTIPATION AND NO TAB WHEN DIARRHEA 10/22/2023 Eliquis 5 MG Oral Tablet (Apixaban) TAKE 1 TABLET BY MOUTH IN THE MORNING AND BEFORE BEDTIME 10/21/2023 Gabapentin 100 MG Oral Capsule (Neurontin) Take 2 Capsules by mouth at bedtime. 10/22/2023 Senna 8.6 MG Oral Capsule Take 1 Capsule by mouth in the morning. Add second tab if constipation and hold for 1 day if diarrhea. Past Week Spironolactone 50 MG Oral Tablet (Aldactone) Take 1 Tablet by mouth in the morning. Patient taking differently: Take 1 Tablet by mouth daily. 10/22/2023 Finasteride 5 MG Oral Tablet (Proscar) Take 1 Tablet by mouth in the morning. 10/22/2023 Tamsulosin HCl 0.4 MG Oral Capsule (Flomax) Take 1 Capsule by mouth in the morning. 10/22/2023 Levothyroxine Sodium 88 MCG Oral Tablet (Levoxyl) TAKE 1 TABLET BY MOUTH IN THE MORNING AT LEAST 30MINUTES PRIOR TO BREAKFAST AND OTHER MEDS 10/23/2023 Ondansetron HCl 4 MG Oral Tablet Take by mouth 1 Tablet every 8 hours as needed for Nausea. Past Month Ferrous Sulfate 325 (65 Fe) MG Oral Tablet (Feosol) Take 1 Tablet by mouth daily with dinner. Past Week Vitamin C 500 MG Oral Tablet (Ascorbic Acid) Take 1 Tablet by mouth in the morning. Past Week CoQ10 200 MG Oral Capsule Take 1 Capsule by mouth daily. Past Week Vitamin D3 50 MCG (2000 UT) Oral Tablet Take 1 Tablet by mouth in the morning. Past Week Atorvastatin Calcium 40 MG Oral Tablet (Lipitor) TAKE 1 TABLET BY MOUTH EVERY DAY Patient taking differently: Take 1 Tablet by mouth in the morning. Trulicity 1.5 MG/0.5ML Subcutaneous Solution Pen-injector (Dulaglutide) INJECT 1 SYRINGE SUBCUTANEOUSLY ONCE A WEEK Patient not taking: Reported on 10/16/2023 Not Taking BD Pen Needle Zora U/F 32G X 4 MM (Insulin Pen Needle) Use once daily with insulin OneTouch Ultra Blue In Vitro Strip (Glucose Blood) Use as directed 4 times a day . Use up to 3-4 times a day as directed Nitroglycerin 0.4 MG Sublingual Tablet Sublingual (Nitrostat) Place 1 Tablet under the tongue every5 minutes as needed for Pain, Chest. Over 30 Days Review of patient's allergies indicates: Allergen Reactions Sulfa Antibiotics Edema Other Other reaction(s): unknown Tramadol Nausea/vomiting Physical Exam: Mental Status Examination: alert and oriented. General: nad, calm Airway Examination: normal oropharyngeal airway and neck mobility. Respiratory Examination: symmetrical excursion Cardiac: RRR, no murmurs Abd:soft/ntd ASA Grade: III - A patient with severe systemic disease. After reviewing the risks and benefits, the patient was deemed in satisfactory condition to undergothe procedure. The anesthesia plan was to use general anesthesia. Zabrina Ya DO Gastroenterology and Hepatology 10/23/2023 documented in this encounter Procedure Notes * Lia Meadows MD - 10/23/2023 9:36 AM EDTAssociated Order(s): UPPER GI ENDOSCOPY [facility] Patient Name: Norris Francois Procedure Date: 10/23/2023 9:36 AM Date of : 1945 Admit Type: Outpatient Note Status: Finalized Date of : 1945 Admit Type: Outpatient Age: 78 Room: [facility] 2 Gender: Male Note Status: Finalized Procedure: Upper GI endoscopy Indications: Follow-up of esophageal varices Providers: Zabrina Ya DO (Doctor) Patient Profile: This is a 78 year old male. Refer to note in patient chart for documentation of history and physical. Referring MD: Lia Meadows MD (Referring MD) Medicines: General Anesthesia Complications: No immediate complications. Procedure: Pre-Anesthesia Assessment: - Prior to the procedure, a History and Physical was performed, and patient medications and allergies were reviewed. The risks and benefits of the procedure and the sedation options and risks were discussed with the patient. All questions were answered and informed consent was obtained. Patient identification and proposed procedure were verified by the physician, the nurse and the benefits processor in the procedure room. Mental Status Examination: alert and oriented. Airway Examination: Mallampati Class II (the uvula but not tonsillar pillars visualized). Respiratory Examination: clear to auscultation. CV Examination: RRR, no murmurs, no S3 or S4. Prophylactic Antibiotics: The patient does not require prophylactic antibiotics. Prior Anticoagulants: The patient has taken Eliquis (apixaban), last dose was 2 days prior to procedure. ASA Grade Assessment: III - A patient with severe systemic disease. After reviewing the risks and benefits, the patient was deemed in satisfactory condition to undergo the procedure. The anesthesia plan was to use general anesthesia. Immediately prior to administration of medications, the patient was re-assessed for adequacy to receive sedatives. The physical status of the patient was re-assessed after the procedure. After obtaining informed consent, the endoscope was passed under direct vision. All instruments were visually inspected immediately before and after removal from the patient to ensure they are fully intact. Throughout the procedure, the patient's blood pressure, pulse, and oxygen saturations were monitored continuously. The upper GI endoscopy was accomplished without difficulty. The patient tolerated the procedure well. The [id number]-[id number] Endoscope ([id number]) was introduced through the mouth, and advanced to the second part of duodenum. Findings & Specimens: The Z-line was regular and was found 38 cm from the incisors. Small (< 5 mm) varices with no bleeding and no stigmata of recent bleeding were found in the lower third of the esophagus. No red cristofer signs were present. Scarring from prior treatment was visible. Mild portal hypertensive gastropathy was found in the entire examined stomach. There is no endoscopic evidence of varices in the entire examined stomach. The duodenal bulb and second portion of the duodenum were normal. Impression: - Z-line regular, 38 cm from the incisors. - Small (< 5 mm) esophageal varices with no bleeding and no stigmata of recent bleeding. Scarring seen from prior banding. - Portal hypertensive gastropathy. - Normal duodenal bulb and second portion of the duodenum. - No specimens collected. Recommendation: - Patient has a contact number available for emergencies. The signs and symptoms of potential delayed complications were discussed with the patient. Return to normal activities tomorrow. Written discharge instructions were provided to the patient. - The patient will be observed post-procedure, until all discharge criteria are met. - Discharge patient to home (with escort). - Resume previous diet. - Continue present medications. - Repeat EGD in 6 months for surveillance as he was last banded 09/2023. Zabrina Ya DO 10/23/2023 10:18:18 AM This report has been signed electronically. documented in this encounter Nursing Notes * Amadou Solis RN - 10/23/2023 10:59 AM EDT Pt sent out with broken tooth secured in cup with lid * Amadou Solis RN - 10/23/2023 10:57 AM EDT Patient is alert, pain free, passing flatus and tolerating po fluids prior to discharge. Patient has been visited by Dr. Ya. Patient has received and demonstrates understanding of discharge instructions. Patient is transported via w/c to private auto accompanied by endo staff. * Amadou Solis RN - 10/23/2023 10:27 AM EDT Patient transferred to post endo s/p EGD. Patient awake, alert and oriented X 3 Respirations are even and unlabored on room air. NSR in the 80's on the monitor. Abdomen soft and non distended. Vital signs stable. * Senait Ibrahim RN - 10/23/2023 10:24 AM EDT As patient was being wheeled out of room, cap fell off. Cap placed in denture cup and given to patient. * Senait Ibrahim RN - 10/23/2023 10:16 AM EDT See anesthesia record for medication administered during procedure. Senait Ibrahim RN Pre cleaning of scope at the bedside started by motion study technician. Patient tolerated procedure well. Left front tooth cap intact after bite block removed. * April Guerrero RN - 10/23/2023 9:15 AM EDT The following pt discharge instructions reviewed with pt prior to prodedure: No driving today. No alcohol today. No signing of legal documents. Rest as much as possible today and can return to normal activities tomorrow. No operating any heavy equipment today. Diet as tolerated. Pt verbalized understanding. Patient prepped, call hodges within reach of patient. documented in this encounter Plan of Treatment Upcoming Encounters Date Type Department Care Team (Late st Contact Info) Description 11/13/2023 9:40 AM EDT Office Visit General Internal Medicine [facility] [place] [address] [place] [address] Lia Meadows MD [address] [place] [address] 11/19/2023 3:00 PM EDT Office Visit Hepatology, [address] [place] [address] Zabrina Ya DO [address] [facility] [place] [address] 12/21/2023 9:00 AM EDT Imaging Radiology [facility] [address] [facility] [place] [address] 03/28/2024 8:30 AM EDT Office Visit Cardiology, [facility] [address] [facility] [place] [address] Zabrina Britton CRNP [address] [facility] [place] [address] 06/03/2024 2:40 PM EST Office Visit Nephrology, [facility] [address] [facility] [place] [address] Breezy Meadows MD [address] [facility] [place] [address] Scheduled Orders Name Type Priority Associated Diagnoses Orde r Schedule GLUCOSE METER, POINT OF CARE (COMMUNICATION ORDER) Point of Care Testing Routine Perform Now for 1 Occurrences starting 10/23/2023 until 10/23/2023 Scheduled Procedures Name Priority Associated Diagnoses Date/Ti me ESOPHAGOGASTRODUODENOSCOPY ( EGD), FLEXIBLE, TRANSORAL, DIAGNOSTIC Alcoholic cirrhosis of liver with ascites (HCC) 10/23/2023 10:00 AM EDT Health Maintenance Due Date Last Done Comments Zoster Vaccines (1 of 2) 1996 Hepatitis B (1 of 3 - Risk 3-dose series) 2006 COVID-19 Vaccine ( season) 2023 05/09/2021, 10/12/2020, 09/22/2020 CKD PHOS USE SMARTSET 69663 09/28/2023 03/08/2022, 09/04/2022, 07/26/2022, Additional history exists [...] 024, 07/26/2022, 05/05/2021 CKD HGB USE SMARTSET 31641 08/23/202408/23, 08/23/2023, 06/04/2023, Additional history exists DTaP,Tdap,and [...] this encounter Medical Devices Implanted Type Area Watch Dial Stoner Device Identifier Shelf Expiration Date Model / Serial / Lot Suture Steel 6 B&S19 M654g - [id number] Implanted:Qty: 7 on 05/30/2021 by Uvaldo Fleming [place] [facility] [place] Sternum VICENTE : [employer] 01/05/2026 [id number] / / [id number] Lipiodol Injection - [id number] Implanted:Qty: 2 on 09/06/2021 at [facility] [employer] 10/06/2022 [id number] 1 -2 / [id number] / [id number] Lipiodol Injection - [id number] Implanted:Qty: 1 on 09/06/2021 at [facility] [employer] 10/06/2022 [id number] 1 -2 / [id number] / [id number] documented as of this encounter Procedures Procedure Name Priority Date/Time Associated Diagnosis Comments UPPER GI ENDOSCOPY 10/23/2023 9: 36 AM EDT GLUCOSE METER, POINT OF CARE [place] 10/23/2023 9:10 AM EDT documented in this encounter Results * UPPER GI ENDOSCOPY (10/23/2023 9:36 AM EDT) 10/23/2023 9:36 AM EDT Narrative Procedure Note Lia Meadows MD - 10/23/2023 9:36 AM EDT [facility] Patient Name: Norris Francois Procedure Date: 10/23/2023 9:36 AM Date of : 1945 Admit Type: Outpatient Note Status:Finalized Date of : 1945 Admit Type: Outpatient Age: 78 Room: [facility] 2 Gender: Male Note Status: Finalized Procedure: Upper GI endoscopy Indications: Follow-up of esophageal varices Providers: Zabrina Ya DO (Doctor) Patient Profile: This is a 78 year old male. Refer to note inpatient chart for documentation of history and physical. Referring MD: Lia Meadows MD (Referring MD) Medicines: General Anesthesia Complications: No immediate complications. Procedure: Pre-Anesthesia Assessment: - Prior to the procedure, a History and Physicalwas performed, and patient medications and allergies were reviewed. The risksand benefits of the procedure and the sedation options and risks were discussed withthe patient. All questions were answered and informed consent was obtained. Patientidentification and proposed procedure were verified by the physician, the nurseand the benefits processor in the procedure room. Mental Status Examination: alertand oriented. Airway Examination: Mallampati Class II (the uvula but not tonsillarpillars visualized). Respiratory Examination: clear to auscultation. CV Examination:RRR, no murmurs, no S3 or S4. Prophylactic Antibiotics: The patient does notrequire prophylactic antibiotics. Prior Anticoagulants: The patient has taken Eliquis(apixaban), last dose was 2 days prior to procedure. ASA Grade Assessment: III - Apatient with severe systemic disease. After reviewing the risks and benefits,the patient was deemed in satisfactory condition to undergo the procedure.The anesthesia plan was to use general anesthesia. Immediately prior toadministration of medications, the patient was re-assessed for adequacy to receive sedatives.The physical status of the patient was re-assessed after the procedure. After obtaining informed consent, the endoscope waspassed under direct vision. All instruments were visually inspected immediatelybefore and after removal from the patient to ensure they are fully intact. Throughout the procedure, the patient's bloodpressure, pulse, and oxygen saturations were monitored continuously. The upper GI endoscopywas accomplished without difficulty. The patient tolerated the procedurewell. The GIF-HQ190 Endoscope ([id number]) was introduced through the mouth, andadvanced to the second part of duodenum. Findings & Specimens: The Z-line was regular and was found 38 cm from the incisors. Small (< 5 mm) varices with no bleeding and no stigmata of recentbleeding were found in the lower third of the esophagus. No red cristofer signs were present. Scarring fromprior treatment was visible. Mild portal hypertensive gastropathy was found in the entire examinedstomach. There is no endoscopic evidence of varices in the entire examinedstomach. The duodenal bulb and second portion of the duodenum were normal. Impression: - Z-line regular, 38 cm from the incisors. - Small (< 5 mm) esophageal varices with nobleeding and no stigmata of recent bleeding. Scarring seen from prior banding. - Portal hypertensive gastropathy. - Normal duodenal bulb and second portion of theduodenum. - No specimens collected. Recommendation: - Patient has a contact number available foremergencies. The signs and symptoms of potential delayed complications were discussed withthe patient. Return to normal activities tomorrow. Written discharge instructionswere provided to the patient. - The patient will be observed post-procedure,until all discharge criteria are met. - Discharge patient to home (with escort). - Resume previous diet. - Continue present medications. - Repeat EGD in 6 months for surveillance as he waslast banded 09/2023. Zabrina Ya DO 10/23/2023 10:18:18 AM This report has been signed electronically. Lia Meadows MD GASTRO UPPER * GLUCOSE METER, POINT OF CARE (10/23/2023 9:10 AM EDT) Glucose Meter 117 70 - 120 mg/dL 10/23/2023 9:30 AM EDT LAB[facility] [place] 57-00 Blood Whole blood specimen / Unknown 10/23/2023 9:10 AM EDT 10/23/2023 9:29 AM EDT Zabrina Ya DO LAB POINT OF C ARE TEST DOCKED DEVICE UNSOLICITED RESULTS [facility] [place] 57-00 [address] [place] [address] documented in this encounter Administered Medications Inactive Administered Medications - up to 3 most recent administrations Medication Order MAR Action Action Date Dose Rate Site isolyte-S pH 7.4 infusion Intravenous, at 100 mL/hr, Plasma-LYTE 148, isolyte-S, and isolyte-S pH 7.4 are considered equivalent - including for MAR barcode scanning., CONTINUOUS, Starting on Sun10/23/23 at 0930, Until Sun10/23/23 at 1503, Pre-Op Continue from Pre-Op 10/23/2023 9:54 AM EDT 100 mL/hr New Bag 10/23/2023 9:14 AM EDT 100 mL/hr documented in this encounter Active and Recently Administered Medications Times are shown in EDT. Continuous Medication Order 10/21/2023 10/22/2023 10/23/2023 isolyte-S pH 7.4 infusion Intravenous, at 100 mL/hr, Plasma-LYTE 148, isolyte-S, and isolyte-S pH 7.4 are considered equivalent - including for MAR barcode scanning., CONTINUOUS, Starting on Sun10/23/23 at 0930, Until 10/23/23 at 1503, Pre-Op 0914 (New Bag - Prov ider: April Guerrero RN)0954 (Continue from Pre-Op - Provider: Star Flynn CRNA)1020 (Anes Intra-Op Fluid - Provider: Star Flynn CRNA) documented in this encounter Advance Directives Latest [...] Advance Directives occurred with: Patient Care Teams Emergency Room Orderly Relationship Specialty Start Date End Date Lia Meadows MD [address] [place] [address] PCP - General Internal Medicine 04/06/21 documented as of this encounter
--- OUTSIDE RECORDS SUMMARY | 2024-03-23 15:30 | External Medical Summary | Summary of Care ---
Author Name Unknown Organization [facility] Address [address] [place] [address] Phone [phone] Care Team Providers Care Hand Mold Maker Name Role Phone Lia Meadows MD Primary Care Provider [phone] Reason for Visit * Reason Comments Follow Up Encounter Details Date Type Department Care Team (Late st Contact Info) Description 10/09/2023 8:30 AM EDT Office Visit Cardiology, [facility] [address] [facility] [address] Zabrina Britton CRNP [address] [facility] [place] [address] Coronary artery disease involving sun'aq coronary artery of sun'aq heart without angina pectoris*; Cirrhosis of liver with ascites, unspecified hepatic cirrhosis type (HCC); S/P CABG x 3; Ischemic cardiomyopathy; PAF (paroxysmal atrial fibrillation) (HCC); HTN, goal below 140/90; Dyslipidemia, goal LDL below 70 Allergies Active Allergy Reactions Criticality Noted Date Comments Sulfa Antibiotics Edema Other Medium 02/01/2016 Other reaction(s): unknown Tramadol Nausea/vomiting 04/01/2021 documented as of this encounter (statuses as of 10/09/2023) Medications Medication Sig Dispensed Refills Start Date [...] DM type 2, goal HbA1c < 7% ([facility]) Use as directed 4 times a day . Use up to 3-4 times a day as directed 100 Strip 5 11/22/19 22 Active BD Pen Needle Zora U/F 32G X 4 MM (Insulin Pen Needle)Indications :Type 2 diabetes mellitus with hemoglobin A1c goal of less than 7.0% ([facility]) Use once daily with insulin 100 Each 5 03/20/20 22 Active Aspirin 81 MG Oral Tablet Delayed Release Take 1 Tablet by mouth every other day. 90 Tablet 3 08/28/19 23 Active Metoprolol Succinate ER 100 MG Oral Tablet Extended Release 24 Hour (toPROL XL)Indications:Eugenie lothorax, right,Coronary artery disease involving sun'aq coronary artery of sun'aq heart without angina pectoris,S/P CABG x 3,HFrEF (heart failure with reduced ejection fraction) ([facility]),Ischemic cardiomyopathy,PAF (paroxysmal atrial fibrillation) ([facility]),HTN, goal below 140/90,Dyslipidemi a, goal LDL below 70,Cerebrovascular accident (CVA), unspecified mechanism ([facility]) TAKE BY MOUTH 1 TABLET IN THE [...] goal of less than 8.0% ([facility]),Type 2 diabetes mellitus with stage 3a chronic kidney disease, unspecified whether residential insulin use ([facility]) INJECT 1 SYRINGE SUBCUTANEOUSLY ONCE A WEEK 6 mL 0 09/19/19 24 Active Insulin Glargine Solostar 100 UNIT/ML Subcutaneous Solution Pen-injector (Lantus SoloStar)Indicatio ns:DM type 2, goal HbA1c < 7% ([facility]) INJECT 38 UNITS SUBCUTANEOUSLY DAILY BEFORE [...] morning. 180 Tablet 1 10/09/19 24 Active Magnesium Chloride 64 MG Oral TabletIndications: Chronic kidney disease, stage 3a (HCC) Take 1 Tablet by mouth in the morning. 30 Tablet 5 10/05/19 23 024 Discontinued(Pa tient preference/disc ontinuation) Albumin Human 25 % Intravenous Solution 3 [...] rate of 100mL/hr. 200 mL 0 01/02/20 23 024 Discontinued(Pa tient preference/disc ontinuation) Esomeprazole Magnesium 20 MG Oral Capsule Delayed Release (NexIUM)Indication s:Gastroesophageal reflux disease without esophagitis Take 1 Capsule by mouth at bedtime. 90 Capsule 3 06/13/20 23 024 Discontinued(Pa tient preference/disc ontinuation) Furosemide 20 MG Oral Tablet (Lasix)Indications :Cirrhosis of liver with ascites, unspecified hepatic cirrhosis type (HCC) TAKE 2 TABLETS BY MOUTH EVERY MORNING 180 Tablet 1 06/25/20 23 024 Discontinued Omeprazole 20 MG Oral Capsule Delayed Release (PriLOSEC) Take 1 Capsule by mouth in the morning. 0 024 Discontinued(Pa tient preference/disc ontinuation) documented as of this encounter (statuses as of 10/09/2023) Active Problems Problem Noted Date Diagnosed Date [...] as of this encounter (statuses as of 10/09/2023) Resolved Problems Problem Noted Date Diagnosed Date [...] as of this encounter (statuses as of 10/09/2023) Immunizations Name Administration Dates Next Due COVID-19 [...] Sign Reading Time Taken Comments Blood Pressure 108/66 10/09/2023 8:29 AM EDT Pulse 88 10/09/2023 8:29 AM EDT Temperature - - Respiratory Rate 12 10/09/2023 8:29 AM EDT Oxygen Saturation - - Inhaled Oxygen Concentration - - Weight 77.5 kg (170 lb 12 oz) 10/09/2023 8:29 AM EDT Height - - Body Mass Index 24.5 07/06/2023 12:47 PM EST documented in this encounter Functional Status Functional [...] of this encounter Progress Notes * Zabrina Britton CRNP - 10/09/2023 8:30 AM EDT Images from the original note were not included. Cardiology Outpatient Visit 10/09/[address] Elizondo Past medical history: ASCVD Multivessel CAD including mid RCA 90% lesion with mild diffuse disease, 80% occlusion of the proximal LAD with heavily calcified lesion, and 100% CANAL TENDER of left circumflex with [id number] and kujhz-ja-efik collaterals, per cath 05/27/2021 at [facility] Status post CABG x3 (PAEZ to LAD, AO to RCA, AO to OM1) with and the graphic saphenous vein harvest, 05/30/2021 Episode of postoperative atrial fibrillation, treated with amiodarone and placed on Coumadin Patient did have an multiple small CVA involving the left anterior frontal lobe and left posterior temporal lobe following surgery Ischemic cardiomyopathy, NYHA class 2-3 LVEF 30% postop CABG, LVEF 40-44% per echo 08/2021, 55-60% per echo 02/2022 History of moderate sized left pleural effusion post CABG, status post thoracentesis 07/14/[address] 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 Ivan Jean and IR Chest tube placement 09/08/2021 H/o Chronic use of Xarelto for possible CVA? PCP in [place] diagnosed him with "chronic white matter disease" after seeing multiple dark spots on and brain MRI with suspicion for infarction. 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 Was last evaluated by Dr. Elizondo approximately 6 months ago. Patient has a complex cardiac history as stated above under problem list. Patient has a known history of cirrhosis of the liver. Recently had an EGD done which showed large varices--he ultimately underwent banding on 09/13/[address] Ya. He is scheduled for repeat EGD on 10/23/2023. Today the patient presents feeling well from a cardiac standpoint. His main concern is regarding his liver cirrhosis. Notes that he has abdominal distention and gets full often. He is wondering if itis time for a paracentesis. Will be seeing Dr. Ya in a few weeks as stated above. He denies any chest pain. No worsening shortness of breath. Mild lightheadedness with position changes. No syncope. No palpitations. No increased lower extremity edema. No fever, chills, cough, hematochezia, melena, or hemoptysis. He states he is compliant with all medications and offers no side effects Cardiac history: Symptoms concerning for unstable angina 05/27/2021. To [facility] for stress testing That same day. Unfortunately they were only able to complete the resting images as there was a significant wall motion abnormality noted. The patient was taken for left heart catheterization that wasnotable for multivessel CAD including mid RCA 90% lesion with mild diffuse disease, 80% occlusion of the proximal LAD with heavily calcified lesion, and 100% CANAL TENDER of left circumflex with [id number] and ysraa-gd-ksck collaterals Underwent CABG x3 (PAEZ-LAD, Ao-RCA, Ao-OM1) on 05/[address] Fleming. Experience postop atrial fibrillation was treated with amiodarone, Plavix, aspirin, and Coumadin. Suffered a CVA postop acute infarcts involving the left anterior frontal lobe and left posterior temporal lobe were noted on MRI.There was also nonspecific white matter changes, as detailed above, most consistent with chronic small vessel ischemic change. Mild age-related cerebral volume loss. Patient was evaluated by Neurology and an EEG was done showing no seizure activity discharged home on Amiodarone and daily Lasix as well as Coumadin, Plavix and ASA. Amiodarone was discontinued 07/07 CT surgery. Coumadin was stopped in favor of Xarelto. Developed moderate left pleural effusion underwent thoracentesis on 07/14 draining 1500 mL of fluid. Recurrent left pleural effusion and chylorothorax, requiring multiple hospitalizations, status post thoracic duct embolization 09/06/[address] Ivan Jean and IR Chest tube placement 09/08/2021 Current Outpatient Medications Medication Sig Dispense Refill CoQ10 200 MG Oral Capsule Take 1 Capsule by mouth daily. Vitamin D3 50 MCG (2000 UT) Oral Tablet Take 1 Tablet by mouth in the morning. Vitamin C 500 MG Oral Tablet (Ascorbic Acid) Take 1 Tablet by mouth in the morning. Ferrous Sulfate 325 (65 Fe) MG Oral Tablet (Feosol) Take 1 Tablet by mouth daily with dinner. 60 Tablet 11 Nitroglycerin 0.4 MG Sublingual Tablet Sublingual (Nitrostat) Place 1 Tablet under the tongue every5 minutes as needed for Pain, Chest. Ondansetron HCl 4 MG Oral Tablet Take by mouth 1 Tablet every 8 hours as needed for Nausea. 30 Tablet 0 Aspirin 81 MG Oral Tablet Delayed Release Take 1 Tablet by mouth every other day. 90 Tablet 3 Metoprolol Succinate ER 100 MG Oral Tablet Extended Release 24 Hour (toPROL XL) TAKE BY MOUTH 1 TABLET IN THE MORNING AND 1 TABLET BEFORE BEDTIME. 180 Tablet 3 Levothyroxine Sodium 88 MCG Oral Tablet (Levoxyl) TAKE 1 TABLET BY MOUTH IN THE MORNING AT LEAST 30MINUTES PRIOR TO BREAKFAST AND OTHER MEDS 90 Tablet 3 Finasteride 5 MG Oral Tablet (Proscar) Take 1 Tablet by mouth in the morning. Tamsulosin HCl 0.4 MG Oral Capsule (Flomax) Take 1 Capsule by mouth in the morning. Spironolactone 50 MG Oral Tablet (Aldactone) Take 1 Tablet by mouth in the morning. (Patient takingdifferently: Take 1 Tablet by mouth daily.) 90 Tablet 4 Senna 8.6 MG Oral Capsule Take 1 Capsule by mouth in the morning. Add second tab if constipation and hold for 1 day if diarrhea. Gabapentin 100 MG Oral Capsule (Neurontin) Take 2 Capsules by mouth at bedtime. 180 Capsule 3 Furosemide 20 MG Oral Tablet (Lasix) TAKE 2 TABLETS BY MOUTH EVERY MORNING (Patient taking differently: 09/14/23 Pt states currently only taking 1 tablet daily in AM) 180 Tablet 1 Docusate Sodium 100 MG Oral Capsule (Colace) TAKE 1 CAPSULE BY MOUTH EVERY EVENING. INCREASE TO TWICE A DAY FOR CONSTIPATION AND NO TAB WHEN DIARRHEA 60 Capsule 11 Eliquis 5 MG Oral Tablet (Apixaban) TAKE 1 TABLET BY MOUTH IN THE MORNING AND BEFORE BEDTIME 180 Tablet 3 Insulin Glargine Solostar 100 UNIT/ML Subcutaneous Solution Pen-injector (Lantus SoloStar) INJECT 38 UNITS SUBCUTANEOUSLY DAILY BEFORE BEDTIME Atorvastatin Calcium 40 MG Oral Tablet (Lipitor) TAKE 1 TABLET BY MOUTH EVERY DAY 90 Tablet 1 OneTouch Ultra Blue In Vitro Strip (Glucose Blood) Use as directed 4 times a day . Use up to 3-4 times a day as directed 100 Strip 5 BD Pen Needle Zora U/F 32G X 4 MM (Insulin Pen Needle) Use once daily with insulin 100 Each 5 Trulicity 1.5 MG/0.5ML Subcutaneous Solution Pen-injector (Dulaglutide) INJECT 1 SYRINGE SUBCUTANEOUSLY ONCE A WEEK 6 mL 0 Trulicity 0.75 MG/0.5ML Subcutaneous Solution Pen-injector (Dulaglutide) Inject 0.75 mg under the skin once a week. 2 mL 2 No current facility-administered medications for this visit. Past Medical History: Diagnosis Date Diabetic peripheral neuropathy (HCC) 03/01/2023 DM type 2, goal HbA1c < 7% (HCC) 1994 HTN, goal below 140/90 Hyperlipidemia LDL goal <100 Hypothyroid Rotator cuff tear Past Surgical History: Procedure Laterality Date CABG, ARTERIAL, SINGLE N/A 05/30/2021 CORONARY ARTERY BYPASS GRAFT USING ARTERY 1 GRAFT performed by Uvaldo Fleming MD at OR [facility] CABG, ARTERY-VEIN, TWO 05/30/2021 CORONARY ARTERY BYPASS GRAFT ARTERIAL AND VENOUS 2 GRAFTS performed by Uvaldo Fleming MD at OR [facility] CORONARY ANGIOGRAPHY W/LEFT HEART CATH Right 05/27/2021 CORONARY ANGIOGRAPHY W/LEFT HEART CATH performed by Jaime Munoz MD at CARDIAC LABS [facility] EGD, FLEXIBLE, DIAGNOSTIC 06/27/2022 normal scope, 3-4 columns grade I varices , z-line found 40cm from incisors [place] Class II / no specimens collected / ESOPHAGOGASTRODUODENOSCOPY (EGD), FLEXIBLE, TRANSORAL, DIAGNOSTIC performed by Evy Hylton MD at ENDOSCOPY [facility] EGD, FLEXIBLE, DIAGNOSTIC 07/16/2023 ESOPHAGOGASTRODUODENOSCOPY (EGD), FLEXIBLE, TRANSORAL, DIAGNOSTIC performed by Eden Hylton MD at ENDOSCOPY [facility] ENDO,VIDEO ASSIST HARVEST BRITTANY 05/30/2021 ENDOSCOPY VIDEO ASSISTED HARVEST VEIN performed by Uvaldo Fleming MD at OR [facility] INCISION OF HEART SAC FOR DRAINAGE N/A 11/10/2021 CREATION PERICARDIAL WINDOW performed by Uvaldo Fleming MD at OR [facility] IR ARTERIAL EMBOLIZATION 09/06/2021 IR CHEST TUBE 09/08/2021 THORACOSCOPY, DIAGNOSTIC, LUNGS N/A 08/01/2021 THORACOSCOPY DIAGNOSTIC WITHOUT BIOPSY performed by Uvaldo Fleming MD at OR [facility] Social History Tobacco Use Smoking status: Former Current packs/day: 0.00 Average packs/day: 2.0 packs/day for 15.0 years (30.0 ttl pk-yrs) Types: Cigarettes Start date: 1969 Quit date: 1984 Years since quittin.2 Smokeless tobacco: Never Vaping Use Vaping Use: Never used Substance Use Topics Alcohol use: Not Currently Comment: quit in mid Drug use: Never Review of patient's allergies indicates: Allergen Reactions Sulfa Antibiotics Edema Other Other reaction(s): unknown Tramadol Nausea/vomiting Review of Systems: See HPI for pertinent positives. All others negative, other than those noted in HPI. Physical Exam BP 108/66 (BP Site: Left Arm, BP Position: Sitting, BP Cuff Size: Regular) | Pulse 88 | Resp 12 | Wt 77.5 kg (170 lb 12 oz) | BMI 24.50 kg/m | BSA 1.96 m General: No acute distress. A+Ox3. HEENT: Normocephalic. Atraumatic. Conjunctiva and sclera clear. NECK: No carotid bruits. No JVD. Carotid upstrokes are brisk. No palpable lymphnodes Heart: Regular rhythm, tachycardic rate. S1 and S2 noted/ +2/6 systolic murmur. Lungs: Clear to auscultation. No wheezing, rhonchi, rales. Abdomen: Normal bowel sounds. Soft. Nontender. No masses or organomegaly. No abdominal bruits. Extremities: No edema. No clubbing or cyanosis. Pulses: radial=2/4, posterior tibial=2/4, dorsalis pedis = 2/4. NEURO: No focal deficits. PSYCH: Normal. Lab data/imaging study review: Echo 09/2022 at [facility] Echo 02/14/2022 The primary indication after review was deemed appropriate and the examination was performed. Normal LV chamber size and wall thickness. Normal LV systolic function without regional wall motion abnormality, EF 55-60%. Grade II diastolic dysfunction. Moderate aortic valve sclerosis without stenosis. There is mild mitral valve prolapse present. Mitral stenosis is absent. Mild mitral regurgitation is present. Mild left atrial enlargement. Echo 08/12/2021 The examination is limited quality but adequate for evaluation of the referral indication. The qualitative LV ejection fraction is 40-44% (mildly reduced). There is a moderate sized inferior, posterior, and lateral wall motion abnormality with akinesis of the segments. There is a circumferential pericardial effusion that is largest around the right side and posterolaterally. There are no apical windows for pericardiocentesis, though there may be a subcostal window. Cardiac tamponade is absent. Intraop EMBER 05/30/2021 The examination is adequate to evaluate the referral indication. Findings were discussed in the OR at the time of the procedure with Dr Fleming. There is a large sized septal, inferior, and posterior wall motion abnormality with akinesis of thesegments. The remaining left ventricular wall segments are mildly hypokinetic. The left ventricular systolic function is moderately reduced. The qualitative LV ejection fraction is 30-34% (moderately reduced). The right ventricular systolic function is qualitatively normal. There was a mild central jet of mitral regurgitaiton and a much smaller medial jet of MR Mild tricuspid regurgitation is present. Dobutamine stress echo 05/27/2021- only resting portion performed. The stress portion was cancelled given the patient's unstable symptoms and resting wall motion. Patient was admitted to the [facility] cardiology service for further management. This study has what is deemed to be a "significant abnormality" consistent with ACT 112. See additional documentation regarding notification of patient and ordering provider. The abnormal findings were discussed with patient at the time of the examination. The examination is adequate to evaluate the referral indication. The qualitative LV ejection fraction is 40-44% (mildly reduced). There is a large sized inferior, posterior, and lateral wall motion abnormality with hypokinesis toakinesis of the segments. Mild mitral regurgitation is present. Cardiac catheterization at [facility] 05/27/2021 * The coronary arteries have significant 3 vessel disease. * Proximal LAD 80%, heavily calcified lesion. Mid RCA 90% lesion. Mild diffuse disease. LCx 100% CANAL TENDER with L-L and R-L collaterals * The leftventricular end diastolic pressure was 11 mmHg (normal). Echo 04/21/2021 The examination is adequate to evaluate the referral indication. There was sinus tachycardia during the examination wiht rates of 94-105 bpm. The LV wall thickness is normal. There are no regional wall motion abnormalities. Qualitative LV ejection Fraction = 50% (low normal). The left atrium is normal sized. The left ventricular diastolic function is mildly abnormal (grade I). Mild mitral regurgitation is present. Impression/Plan: This is a 77 year old male who is being evaluated in the cardiology office for ongoing care/risk management for the below diagnoses. 1. Multivessel Coronary artery disease 2. Status post CABG x3 3. HFrEF, Ischemic cardiomyopathy -Multivessel CAD status post CABG x3 (PAEZ to LAD, AO to RCA, AO to OM1) with and the graphic saphenous vein harvest, . Full details as stated above. Stable, no angina. -LVEF as low as 30%, function improved per recent echo 55-60%. -NYHA class 2-3. 1. Continue metoprolol succinate 100 mg twice daily 2. Prior use of KATHI/ARB dc'd due to CKD/DELIA 3. Continue ASA 81 mg every other day. 4. Volume status well managed-- on Lasix and aldactone (also for cirrhosis) --Will defer to hepatology regarding abdominal distention due to cirrhosis. 5. 2g sodium diet. Daily weights. 5. Paroxysmal atrial fibrillation -History of PAF -High [id number] score. 1. Continue Eliquis 5 mg twice daily. 2. Continue metoprolol succinate 100 mg daily 6. HTN, goal below 140/90 Well controlled. Plan as stated above. 7. Dyslipidemia, goal LDL below 70 Well controlled. LDL 32 1. Continue atorvastatin 40 mg daily There are no Patient Instructions on file for this visit. The patient agrees to the above plan and will call with additional questions or concerns. ER with all emergencies advised. I spent a total of 40 minutes on the date of service in preparation, delivery, and documentation ofthe care provided to Norris Francois excluding any time spent in the performance of separately billed services. ZHAO Ortiz, Department of Cardiology This chart was completed in part utilizing [employer] Speech Voice Recognition Software. Grammatical errors, random word insertions, prounoun errors, and incomplete sentences are an occasional consequence of this system due to software limitations, ambient noise, and hardware issues. Any formal questions or concerns about the content, text, or information contained within the body of this dictation should be directly addressed to the provider for clarification. documented in this encounter Nursing Notes * Kacy Loja CMA - 10/09/2023 8:28 AM EDT Examination Room: 7 Name: Norris Francois Date of : (1945). Reason for Visit: 6 month f/u Interim Hospitalization(s): denies Problems/Concerns: dizziness upon waking/standing Chest Pain/SOB: denies [facility] Discussed: Not applicable [facility] is a way you can talk to your provider online through e-mail. Would you like to sign up? I can activate it for you? ALREADY ACTIVE Patient was instructed to not get up on the exam table until directed and assisted by their provider; patient is to remain seated in the chair/ wheelchair/ exam table for fall prevention and safety reasons. Patient is aware to have assistance to step down off exam table with personnel. Patient voiced full comprehension of instructions. documented in this encounter Plan of Treatment Upcoming Encounters Date Type Department Care Team (Latest Contact Info) Description 10/23/2023 9:30 AM EDT Hospital Encounter ENDO [facility], Endoscopy Room [facility] [address] [place], [place] [id number] Zabrina Ya DO [address] [place] [address] 10/23/2023 9:30 AM EDT - 10/23/2023 10:00 AM EDT Surgery ENDO [facility], Endoscopy Room [facility] [address] [place] [phone] Zabrina Ya DO [address] [place] [address] ESOPHAGOGASTRODUODENOSCOPY (EGD), FLEXIBLE, TRANSORAL, DIAGNOSTIC 11/13/2023 9:40 AM EDT Office Visit General Internal Medicine [facility] [address] [place] [address] Lia Meadows MD [address] [facility] [place] [address] 11/19/2023 3:00 PM EDT Office Visit Hepatology, [facility] [address] [place] [address] Zabrina Ya, [address] [place] [address] 12/21/2023 9:15 AM EDT Imaging Radiology [facility] [address] [place] [address] 03/28/2024 8:30 AM EDT Office Visit Cardiology, [facility] [address] [place] [address] Zabrina Britton CRNP [address] [place] [address] 06/03/2024 2:40 PM EST Office Visit Nephrology, [facility] [address] [place] [address] Breezy Meadows MD [address] [place], [place] [address] Scheduled Orders Name Type Priority Associated Diagnoses Orde r Schedule EKG EKG Routine Cirrhosis of liver with ascites, unspecified hepatic cirrhosis type (HCC) Ordered: 10/09/2023 Scheduled Procedures Name Priority Associated Diagnoses Date/Ti me ESOPHAGOGASTRODUODENOSCOPY ( EGD), FLEXIBLE, TRANSORAL, DIAGNOSTIC Alcoholic cirrhosis of liver with ascites (HCC) 10/23/2023 9:30 AM EDT Health Maintenance Due Date Last Done Comments Zoster Vaccines (1 of 2) 1996 Hepatitis B (1 of 3 - Risk 3-dose series) 2006 COVID-19 Vaccine ( season) 2023 05/09/2021, 10/12/2020, 09/22/2020 CKD PHOS USE SMARTSET 50982 09/28/202309/07, 09/04/2022, 07/26/2022, Additional history exists Diabetic Eye Exam 11/09/2023 11/08/2022, , 11/08/2022, Additional history exists Depression Screening 12/01/2023 11/30/2022 GFR 02/21/2024 08/23/2023, 12/0 12/2022, 06/04/2023, Additional history exists HbA1c 02/21/2024 08/23/2023, 02/07, 11/30/2022, Additional history exists Diabetic Foot Exam 06/13/2024 06/13/2023, 1 , 05/05/2021 TSH 06/13/2024 06/13/2023, 11/07, 12/07/2021, Additional history exists Albumin/Creatinine Ratio 08/23/2024 024, 07/26/2022, 05/05/2021 CKD HGB USE SMARTSET 20902 08/23/202408/23, 08/23/2023, 06/04/2023, Additional history exists DTaP,Tdap,and [...] this encounter Medical Devices Implanted Type Area Cotton Seed Culler Device Identifier Shelf Expiration Date Model / Serial / Lot Suture Steel 6 [id number] - [id number] Implanted:Qty: 7 on 05/30/2021 by Uvaldo Fleming MD at [place] [facility] N/A: Sternum JNJ : [employer] 01/05/2026 [id number] / / [id number] Lipiodol Injection - [id number] Implanted:Qty: 2 on 09/06/2021 at [facility] [employer] 10/06/2022 11769-607 1 -2 / [id number] / [id number] Lipiodol Injection - [id number] Implanted:Qty: 1 on 09/06/2021 at [facility] [employer] 10/06/2022 [id number] 1 -2 / [id number] / [id number] documented as of this encounter Visit Diagnoses Diagnosis Coronary artery disease involving sun'aq coronary artery of sun'aq heart without angina pectoris- Primary Cirrhosis of liver with ascites, unspecified hepatic cirrhosis type (HCC) S/P CABG x 3 Postsurgical aortocoronary bypass status Ischemic cardiomyopathy Other specified forms of chronic ischemic heart disease PAF (paroxysmal atrial fibrillation) (HCC) Atrial fibrillation HTN, goal below 140/90 Unspecified essential hypertension Dyslipidemia, goal LDL below 70 Other and unspecified hyperlipidemia Alcoholic cirrhosis of liver with ascites (HCC) [...] Advance Directives occurred with: Patient Care Teams Hand Mold Maker Relationship Specialty Start Date End Date Lia Meadows MD [address] [place] [address] PCP - General Internal Medicine 04/06/21 documented as of this encounter
--- OUTSIDE RECORDS SUMMARY | 2024-03-23 15:30 | External Medical Summary | Summary of Care ---
Author Name Unknown Organization [facility] Address [address] [place] [address] Phone [phone] Care Team Providers Care Knockup Worker Name Role Phone Lia Kilgore MD Primary Care Provider [phone] Reason for Visit * Reason Comments eRx-Medication Refill Encounter Details Date Type Department Care Team (Late st Contact Info) Description 09/17/2023 Refill General Internal Medicine [facility] [place] [address] [facility] [place] [address] Lia Kilgore MD 200 [place] [address] Type 2 diabetes mellitus with hemoglobin A1c goal of less than 8.0% ([facility]); Type 2 diabetes mellitus with stage 3a chronic kidney disease, unspecified whether fci insulin use ([facility]) Allergies Active Allergy Reactions Criticality Noted [...] Nausea. 30 Tablet 0 11/22/19 22 Active OneTableNOW Ultra Blue In Vitro Strip (Glucose Blood)Indications: DM type 2, goal HbA1c < 7% ([facility]) Use as directed 4 times a day . Use up to 3-4 times a day as directed 100 Strip 5 11/22/19 22 Active BD Pen Needle Zora U/F 32G X 4 MM (Insulin Pen Needle)Indications :Type 2 diabetes mellitus with hemoglobin A1c goal of less than 7.0% ([facility]) Use once daily with insulin [...] Oral TabletIndications: Chronic kidney disease, stage 3a ([facility]) Take 1 Tablet by mouth in the morning. 30 Tablet 5 10/05/19 23 Active Additional Information Patient not taking.Reported on 06/18/2023 Metoprolol Succinate ER 100 MG Oral Tablet Extended Release 24 Hour (toPROL XL)Indications:Eugenie lothorax, right,Coronary artery disease involving [place] coronary artery of [place] heart without angina pectoris,S/P CABG x 3,HFrEF (heart failure with reduced ejection fraction) ([facility]),Ischemic cardiomyopathy,PAF (paroxysmal atrial fibrillation) ([facility]),HTN, goal below 140/90,Dyslipidemi a, goal LDL below 70,Cerebrovascular accident (CVA), unspecified mechanism ([facility]) TAKE BY MOUTH 1 TABLET IN [...] stage 3a chronic kidney disease, 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 He has not been able to obtain from his pharmacy due to backorder. Patient was previously prescribed Trulicity 3mg weekly but was decreased due to too much weight loss and lack of appetite. He has a supply of 3mg at home still from his previous prescription. Patient is wondering if he should return to 3mg either weekly or every other week while the shortage on the Trulicity 1.5mg is going on. He has been without an injection for a few days. Please advise and route back to me to advise patient. Thank you, Yasmin Serna, PharmVinicius Clinical Pharmacist [facility] ([facility]) 09/27/23 1:14 PM [phone] * Telephone Encounter - Evon Forrester PHARM Tech - 09/27/2023 1:08 PM EDT Patient called in today stating that he is unable to get this medication at any pharmacy. He has some left over trulicity at his house that he is wondering if he can use until he gets the current dosage in. I warm transferred patient to [facility] Yasmin Thank you, Evon Forrester Motorcycle Tester I [facility] ([facility])(formerly Telepharmacy) 09/27/2023,1:09 PM * Telephone Encounter - Casa Jasso [facility] - 09/19/2023 9:40 AM EDTSigned Prescriptions: Disp Refills Trulicity 1.5 MG/0.5ML Subcutaneous Soluti*6 mL 0 Sig: INJECT 1 SYRINGE SUBCUTANEOUSLY ONCE A WEEK Authorizing Provider: LIA KILGORE Ordering User: CASA JASSO * Telephone Encounter - Casa Jasso RPh - 09/19/2023 9:40 AM EDT Approved until OV. Casa Lambert Clinical Pharmacist [facility] ([facility]) (Formerly Telepharmacy) [phone] 09/19/2023, 9:40 AM documented in this encounter Plan of Treatment Upcoming Encounters Date Type Department Care Team (Latest Contact Info) Description 10/09/2023 8:30 AM EDT Office Visit Cardiology, [facility] [address] [place] [address] Zabrina Britton CRNP [address] [place] [address] 10/23/2023 2:30 PM EDT Hospital Encounter ENDO OSS[facility], Endoscopy Room [facility] [address] [place] [phone] Zabrina Ya DO [address] [place] [address] 10/23/2023 2:30 PM EDT - 10/23/2023 3:00 PM EDT Surgery ENDO [facility], Endoscopy Room [facility] [address] [place] [phone] aZbrina Ya DO [address] [place] [address] ESOPHAGOGASTRODUODENOSCOPY (EGD), FLEXIBLE, TRANSORAL, DIAGNOSTIC 11/13/2023 9:40 AM EDT Office Visit General Internal Medicine [facility] [address] [facility] [place] [address] Lia Kilgore MD [address] [facility] [place] [address] 11/19/2023 3:00 PM EDT Office Visit Hepatology, [facility] [address] [place] [address] [facility] Ya [facility] [place] [address] 12/21/2023 9:15 AM EDT Imaging Radiology [facility] [place] [address] 06/03/2024 2:40 PM EST Office Visit Nephrology, [facility] [address] [facility] [place] [address] Breezy Kilgore MD [address] [facility] [place] [address] Scheduled Procedures Name Priority Associated Diagnoses Date/Ti me ESOPHAGOGASTRODUODENOSCOPY ( EGD), FLEXIBLE, TRANSORAL, DIAGNOSTIC Alcoholic cirrhosis of liver with ascites (HCC) 10/23/2023 2:30 PM EDT Health Maintenance Due Date Last Done Comments Zoster Vaccines (1 of 2) 1996 Hepatitis B (1 of 3 - Risk 3-dose series) 2006 COVID-19 Vaccine ( season) 2023 05/09/2021, 10/12/2020, 09/22/2020 CKD PHOS USE SMARTSET 97794 09/28/2023 03/08/2022, 09/04/2022, 07/26/2022, Additional history exists [...] 024, 07/26/2022, 05/05/2021 CKD HGB USE SMARTSET 96023 08/23/202408/23, 08/23/2023, 06/04/2023, Additional history exists DTaP,Tdap,and [...] this encounter Medical Devices Implanted Type Area Annealing Oven Operator Device Identifier Shelf Expiration Date Model / Serial / Lot Suture Steel 6 B&S19 M654g - [id number] Implanted:Qty: 7 on 05/30/2021 by Uvaldo Fleming MD at [facility] N/A: Sternum JNJ : [employer] 01/05/2026 M654G / / [id number] Lipiodol Injection - [id number] Implanted:Qty: 2 on 09/06/2021 at [facility] [employer] 10/06/2022 [id number] 1 -2 / [id number] / [id number] Lipiodol Injection - [id number] Implanted:Qty: 1 on 09/06/2021 at [facility] [employer] 10/06/2022 [id number] 1 -2 / [id number] / [id number] documented as of this encounter Visit Diagnoses Diagnosis Type 2 diabetes mellitus with stage 3a chronic kidney disease, unspecified whether fci insulin use (HCC) Alcoholic cirrhosis of liver [...] Advance Directives occurred with: Patient Care Teams Knockup Worker Relationship Specialty Start Date End Date Lia Kilgore MD [address] [place] [address] PCP - General Internal Medicine 04/06/21 documented as of this encounter
--- OUTSIDE RECORDS SUMMARY | 2024-03-23 15:30 | External Medical Summary | Summary of Care ---
Author Name Unknown Organization [facility] Address [address] [place] [address] Phone [phone] Care Team Providers Care Brim Cutter Name Role Phone Lia Meadows MD Primary Care Provider [phone] Reason for Visit * Reason Comments eRx-Medication Refill Encounter Details Date Type Department Care Team (Late st Contact Info) Description 09/28/2023 Refill General Internal Medicine [facility] [place] [address] [facility] [place] [facility] [place] [address] Lia Meadows MD 200 [place] [address] Hyperlipidemia LDL goal <100 Allergies Active Allergy Reactions Criticality Noted Date Comments Sulfa Antibiotics Edema Other Medium 02/01/2016 Other reaction(s): unknown Tramadol Nausea/vomiting 04/01/2021 documented as of this encounter (statuses as of 09/28/2023) Medications Medication Sig Dispensed Refills Start Date [...] DM type 2, goal HbA1c < 7% ([facility]) Use as directed 4 times a day . Use up to 3-4 times a day as directed 100 Strip 5 11/22/19 22 Active BD Pen Needle Zora U/F 32G X 4 MM (Insulin Pen Needle)Indications :Type 2 diabetes mellitus with hemoglobin A1c goal of less than 7.0% ([facility]) Use once daily with insulin 100 Each 5 03/20/20 22 Active Aspirin 81 MG Oral Tablet Delayed Release Take 1 Tablet by mouth every other day. 90 Tablet 3 08/28/19 23 Active Magnesium Chloride 64 MG Oral TabletIndications: Chronic kidney disease, stage 3a ([facility]) Take 1 Tablet by mouth in the morning. 30 Tablet 5 10/05/19 23 Active Additional Information Patient not taking.Reported on 06/18/2023 Metoprolol Succinate ER 100 MG Oral Tablet Extended Release 24 Hour (toPROL XL)Indications:Eugenei lothorax, right,Coronary artery disease involving [place] coronary artery of [place] heart without angina pectoris,S/P CABG x 3,HFrEF (heart failure with reduced ejection fraction) ([facility]),Ischemic cardiomyopathy,PAF (paroxysmal atrial fibrillation) ([facility]),HTN, goal below 140/90,Dyslipidemi a, goal LDL below 70,Cerebrovascular accident (CVA), unspecified mechanism ([facility]) TAKE BY MOUTH 1 TABLET IN THE MORNING AND 1 TABLET BEFORE BEDTIME. 180 Tablet 3 10/17/19 23 Active Levothyroxine Sodium 88 MCG Oral Tablet (Levoxyl)Indicatio ns:Acquired hypothyroidism TAKE 1 TABLET BY MOUTH IN THE MORNING AT LEAST 30 MINUTES PRIOR TO BREAKFAST AND OTHER MEDS 90 Tablet 3 12/30/19 23 Active Albumin Human 25 % Intravenous Solution [...] TAB WHEN DIARRHEA 60 Capsule 11 09/10/19 Active Eliquis 5 MG Oral Tablet (Apixaban) TAKE 1 TABLET BY MOUTH IN THE MORNING AND BEFORE BEDTIME 180 Tablet 3 09/10/19 Active Additional Information Patient not taking.Reported on 09/14/2023 Omeprazole 20 MG Oral Capsule Delayed Release (PriLOSEC) Take 1 Capsule by mouth in the morning. 0 Active Trulicity 1.5 MG/0.5ML Subcutaneous Solution Pen-injector (Dulaglutide)Indic ations:Type 2 diabetes mellitus with hemoglobin A1c goal of less than 8.0% ([facility]),Type 2 diabetes mellitus with stage 3a chronic kidney disease, unspecified whether equipment operator intermodal yard insulin use ([facility]) INJECT 1 SYRINGE SUBCUTANEOUSLY ONCE A WEEK 6 mL 0 09/19/19 24 Active Insulin Glargine Solostar 100 UNIT/ML Subcutaneous Solution Pen-injector (Lantus SoloStar)Indicatio ns:DM type 2, goal HbA1c < 7% ([facility]) INJECT 38 UNITS SUBCUTANEOUSLY DAILY BEFORE BEDTIME 0 09/18/19 24 Active Atorvastatin Calcium 40 MG Oral Tablet (Lipitor)Indicatio ns:Hyperlipidemia LDL goal <100 TAKE 1 TABLET BY MOUTH EVERY DAY 90 Tablet 1 09/28/19 24 Active Atorvastatin Calcium 40 MG Oral Tablet (Lipitor)Indicatio ns:Hyperlipidemia LDL goal <100 TAKE 1 TABLET BY MOUTH EVERY DAY 90 Tablet 3 09/30/19 23 024 Discontinued documented as of this encounter (statuses as of 09/28/2023) Active Problems Problem Noted Date Diagnosed Date [...] as of this encounter (statuses as of 09/28/2023) Resolved Problems Problem Noted Date Diagnosed Date [...] as of this encounter (statuses as of 09/28/2023) Immunizations Name Administration Dates Next Due COVID-19 [...] Notes * Telephone Encounter - Jonathan Linton [facility] - 09/28/2023 12:59 PM EDTSigned Prescriptions: Disp Refills Atorvastatin Calcium 40 MG Oral Tablet (Li*90 Tab*1 Sig: TAKE 1 TABLET BY MOUTH EVERY DAYAuthorizing Provider: Chuck MEADOWS User: JONATHAN LINTON------- documented in this encounter Plan of Treatment Upcoming Encounters Date Type Department Care Team (Latest Contact Info) Description 10/09/2023 8:30 AM EDT Office Visit Cardiology, [facility] [address] [place] [address] Zabrina Britton CRNP [address] [place] [address] 10/23/2023 9:30 AM EDT Hospital Encounter ENDO [facility], Endoscopy Room [facility] [address] [place] [phone] Zabrina Ya DO [address] [place] [address] 10/23/2023 9:30 AM EDT - 10/23/2023 10:00 AM EDT Surgery ENDO [facility], Endoscopy Room [facility] [address] [place] [phone] Zabrina Ya DO [address] [place] [address] ESOPHAGOGASTRODUODENOSCOPY (EGD), FLEXIBLE, TRANSORAL, DIAGNOSTIC 11/13/2023 9:40 AM EDT Office Visit General Internal Medicine [facility] [address] [place] [address] Lia Meadows MD [address] [facility] [address] [place], [place] [address] 11/19/2023 3:00 PM EDT Office Visit Hepatology, [facility] [address] [facility] [place] [address] Zabrina Ya DO [address] [place] [address] 12/21/2023 9:15 AM EDT Imaging Radiology [facility] [address] [facility] [place] [address] 06/03/2024 2:40 PM EST Office Visit Nephrology, [facility] [address] [facility] [place] [address] Breezy Meadows MD [address] [facility] [place] [address] Scheduled Procedures Name Priority Associated Diagnoses Date/Ti me ESOPHAGOGASTRODUODENOSCOPY ( EGD), FLEXIBLE, TRANSORAL, DIAGNOSTIC Alcoholic cirrhosis of liver with ascites (HCC) 10/23/2023 9:30 AM EDT Health Maintenance Due Date Last Done Comments Zoster Vaccines (1 of 2) 1996 Hepatitis B (1 of 3 - Risk 3-dose series) 2006 COVID-19 Vaccine ( season) 2023 05/09/2021, 10/12/2020, 09/22/2020 CKD PHOS USE SMARTSET 77161 09/28/202309/07, 09/04/2022, 07/26/2022, Additional history exists Diabetic Eye Exam 11/09/2023 11/08/2022, , 11/08/2022, Additional history exists Depression Screening 12/01/2023 11/30/2022 GFR 02/21/2024 08/23/2023, 12/0 12/2022, 06/04/2023, Additional history exists HbA1c 02/21/2024 08/23/2023, 02/07, 11/30/2022, Additional history exists Diabetic Foot Exam 06/13/2024 06/13/2023, 1 , 05/05/2021 TSH 06/13/2024 06/13/2023, 11/07, 12/07/2021, Additional history exists Albumin/Creatinine Ratio 08/23/2024 024, 07/26/2022, 05/05/2021 CKD HGB USE SMARTSET 88257 08/23/202408/23, 08/23/2023, 06/04/2023, Additional history exists DTaP,Tdap,and [...] this encounter Medical Devices Implanted Type Area Rib Chopper Device Identifier Shelf Expiration Date Model / Serial / Lot Suture Steel 6 B&S19 M654g - [id number] Implanted:Qty: 7 on 05/30/2021 by Uvaldo Fleming [place] [facility] [place]A: Sternum [employer]ICENTE : [employer] 01/05/2026 M654G / / [id number] Lipiodol Injection - [id number] Implanted:Qty: 2 on 09/06/2021 at [facility] [employer] 10/06/2022 [id number] 1 -2 / [id number] / [id number] Lipiodol Injection - [id number] Implanted:Qty: 1 on 09/06/2021 at [facility] [employer] 10/06/2022 [id number] 1 [id number] / [id number] documented as of this encounter Visit Diagnoses Diagnosis Hyperlipidemia LDL goal <100 Other and unspecified hyperlipidemia Alcoholic cirrhosis of [...] Advance Directives occurred with: Patient Care Teams Brim Cutter Relationship Specialty Start Date End Date Lia Meadows MD [address] [place] [address] PCP - General Internal Medicine 04/06/21 documented as of this encounter
[2024-03-23] MEDS ORDERED: SODIUM CHLORIDE 0.9% 250 ML IV PRN ×2 (16:11→16:45)
--- NOTE | 2024-03-23 16:16 | Emergency Department Note ---
Impression & Plan Acute GI bleeding, Symptomatic anemia, DELIA (acute kidney injury) ED Provider Note NAME: MASSIMO STONER AGE: 78 SEX: M : 1945 ARRIVES VIA: Walk-In INFORMANT: Patient ED PROVIDER(S): Sean Wu DO CHIEF COMPLAINT: Weakness HPI: Patient is a 78-year-old male with a past medical history of DELIA, A-fib on Eliquis who presents to the ER for weakness. He admits to dark stools which have been present for the past 2 to 3 months. He has been having loose stools as well. He admits to the inability to stand as he is very weak. Denies any headache or change in vision. No chest pain or shortness of breath. No dysuria, urgency, or frequency. No belly pain. No other exacerbating or remitting factors. ADDITIONAL HISTORY OBTAINED: Per HPI Chronic Medical/Social Conditions Affecting Care: Per HPI PAST MEDICAL HISTORY:See Below PAST SURGICAL HISTORY:See Below FAMILY HISTORY:See Below SOCIAL HISTORY:See Below HOME MEDICATIONS:See Below ALLERGIES:See Below VITALS:See Below PHYSICAL EXAMINATION: GENERAL: Sitting up in bed, alert, well appearing, well nourished, no distress, non-toxic EYE EXAM: normal conjunctiva. OROPHARYNX: no exudate, no erythema, lips, buccal mucosa, and tongue normal and mucous membranes are moist NECK: supple, no nuchal rigidity, no adenopathy, non-tender LUNGS: Clear to auscultation. Normal chest wall mechanics HEART: no murmurs, S1 normal and S2 normal ABDOMEN: abdomen soft, non-tender, normo-active bowel sounds, no masses, no rebound or guarding. BACK: Back is symmetrical on inspection and there is no deformity, no midline tenderness, no CVA tenderness. SKIN: no rashes and no bruising UPPER EXTREMITIES: upper extremities are grossly normal. LOWER EXTREMITIES: No pitting edema. NEURO EXAM: Normal sensorium, cranial nerves II-XII grossly intact, normal speech, no gross weakness of arms, no gross weakness of legs. RECTAL: Dark stool heme positive MEDICAL DECISION MAKING: Patient is a 78-year-old male who presents to the ER for the above-stated complaint. IV was established blood work was obtained. Labs show no significant leukocytosis. Significant anemia at 6.7 down from 12. INR unremarkable. BMP with a creatinine of 3 up from a baseline of 2. Acidosis present with a CO2 of 16. BUN was significantly elevated consistent with GI bleed. Patient was typed and crossed and ordered 2 units PRBCs while in the ER. He has no belly pain. Discussed case with the hospitalist for further evaluation management treatment. Due to the duration of his symptoms do favor that this is likely a slow bleed which has been present over several weeks. Consults/Care Managements Discussions: Per MDM Triage Nursing notes reviewed. Limited review of prior medical records performed Vital Signs: reviewed and remarkable for no significant abnormalities Differential diagnosis: Differential diagnoses includes but is not limited to gastritis, peptic ulcer disease, GERD, gallbladder disease, pancreatitis, small bowel obstruction, appendicitis, diverticulitis, hernia, urinary tract infection, torsion, perforation, trauma, infectious. ER treatment provided: See below Diagnostics interpreted by me include EKG and cardiac monitoring as listed below: -Cardiac Monitoring: An order was placed for continuous cardiac monitoring. The monitor shows a rate of 78 with sinus rhythm. -ECG: Sinus rhythm rate 77 Right bundle branch block no PVCs Nonspecific ST wave changes in the lateral leads -Laboratory studies:Interpreted by me as stated above in MDM and shown below. Imaging studies: Xrays: As interpreted by me:none CTs show: none Procedures:none Critical Care: I have personally spent 35 minutes of critical care time in the direct management of this patient. This includes bedside care, interpretation of diagnostic studies, and testing, discussion with consultants, patient, and family members, and other required patient management activities. This 35 minutes is in excess of all separately billable procedures. 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 2 gm bid amoxicillin for empyema through November 2022-- completed amoxicillin now started on doxycycline DELIA (acute kidney injury) (Acute) Abdominal pain (Acute) Chylothorax CAD (coronary artery disease) Multivessel CAD including mid RCA 90% lesion with mild diffuse disease, 80% occlusion of the proximal LAD with heavily calcified lesion, and 100% WHEEL MOLDER of left circumflex with [id number] and [id number] collaterals, per cath 05/27/2021 at [facility] [place] Status post CABG x3 (PAEZ to LAD, AO to RCA, AO to OM1) with and the graphic saphenous vein harvest, 05/30/2021 Cirrhosis of liver with ascites states has to have a paracentesis done Atrial fibrillation post operative CABG 2020, denies current A fib Ischemic cardiomyopathy LVEF 30% post CABG; GRADE I diastolic dysfunction, NYHA class 2 Hypothyroid Hypertension Hyperlipidemia Diabetes mellitus IDDM Carotid artery stenosis Medical History 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 Osteoarthritis History of kidney stones stents placed and removed Stroke patient denies CKD (chronic kidney disease) stage 3, GFR 30-59 ml/min TIA (transient ischemic attack) in [place] prior to 2020 AND post operatively 2020 [facility] [place], no deficits 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, months of abtx---no antibiotics currently Surgical History Hx of cystoscopy w/ stent - 09/20/22 Hx of cardiac catheterization 05/2021 Hx of colonoscopy History of esophagogastroduodenoscopy (EGD) Hx of chest tube placement Hx of cholecystectomy History of coronary artery bypass graft CABG x 3 (PAEZ -LAD; AO-RCA; AO-OM1 w/ graphic SVG on 05/30/2021 Family History Other Heart disease Social History Smoking Status: Never smoker Tobacco Type: Cigarettes packs per day: 1; Cigarettes Per Day: quit ~ 30 yrs ago; Second Hand Exposure: No; Do You Dip or Chew Tobacco: No; Hx Alcohol Use: No Hx Substance Use: No Preferred Language: Swazi Communication Ability: Effective Visual Impairment: No Limitations Bird Tender Required: No Beliefs That Will Affect Care: None Current Living Situation: Spouse Feels Safe at Home: Yes Assistive Devices: Glasses Allergies Allergies Allergy/AdvReac Type Severity Reaction Status Date / Time Sulfa (Sulfonamide Allergy Unknown CHILDHOOD Verified 09/13/23 08:32 Antibiotics) ALLERGY--CAN'T REMEMBER tramadol AdvReac Severe SEVERE Verified 09/13/23 08:32 VOMITING omeprazole AdvReac Intermediate PER PT Verified 09/13/23 08:32 "DID THE OPPOSITE, MADE ME WORSE". Home Meds Home Medications Medication Instructions Recorded Confirmed ascorbic acid (vitamin C) 500 mg 500 mg PO QAM 11/08/21 03/23/24 tablet (Vitamin C) atorvastatin 40 mg tablet 40 mg PO QAM 11/08/21 03/23/24 cholecalciferol (vitamin D3) 50 50 mcg PO QAM 11/08/21 03/23/24 mcg (2,000 unit) capsule (Vitamin D3) dulaglutide 1.5 mg/0.5 mL 3 mg subcut WK 11/08/21 03/23/24 subcutaneous pen injector (Trulicity) insulin glargine 100 unit/mL (3 38 unit subcut HS 11/08/21 03/23/24 mL) subcutaneous pen (Lantus Solostar U-100 Insulin) levothyroxine 88 mcg tablet 88 mcg PO DAILYBB 11/08/21 03/23/24 metoprolol succinate 100 mg 100 mg PO BID 11/08/21 03/23/24 tablet,extended release 24 hr nitroglycerin 0.4 mg sublingual 0.4 mg sublingual DIRECTED PRN 11/08/21 03/23/24 tablet (Nitrostat) Chest Pain ondansetron HCl 4 mg tablet 4 mg PO Q8H PRN Nausea 11/08/21 03/23/24 aspirin 81 mg tablet,delayed 81 mg PO 3XWK 09/18/22 03/23/24 release apixaban 5 mg tablet (Eliquis) 5 mg PO BID 09/19/22 03/23/24 furosemide 20 mg tablet 20 mg PO QAM 10/04/22 03/23/24 gabapentin 100 mg capsule 200 mg PO HS 03/23/24 03/23/24 spironolactone 50 mg tablet 50 mg PO DAILY 03/23/24 03/23/24 Results & Data (ED) Vital Signs Vital Signs - 24 hr 03/23/24 15:25 09/15/24 17:02 03/23/24 18:28 Temperature 36.8 C 36.4 C L Temperature Source Temporal Artery Scan Oral Pulse Rate 78 74 75 Respiratory Rate 19 18 Respiratory Effort / Characteristics Non-Labored Respiratory Depth Normal Blood Pressure 111/67 99/59 L Blood Pressure Mean 81 72 Pulse Oximetry 100 99 Oxygen Delivery Method Room Air Sepsis Recent Fever Within 48 Hours No Sepsis New/Unexplained Change in Mental Status N/A Sepsis Action Taken by Nursing No Action Required Laboratory Data 03/23/24 15:56 03/23/24 15:56 Lab Results 03/23/24 03/23/24 Range/Units 15:56 16:25 WBC 7.68 (4.8-10.8) K/ul RBC 2.82 L (4.70-6.10) M/uL Hgb 6.7 L* (14.0-18.0) g/dl Hct 23.4 L (42.0-52.0) % MCV 83.0 (80.0-100.0) fL MCH 23.8 L (25.0-34.0) pg MCHC 28.6 L (32.0-36.0) g/dL RDW Std Deviation 50.9 H (36.4-46.3) fL RDW Coeff of Lencho 17.0 H (11.5-14.5) % Plt Count 168 (130-400) K/uL MPV 11.4 (9.4-12.4) fL Immature Gran % (Auto) 0.4 % Neut % (Auto) 70.3 % Lymph % (Auto) 14.6 % Hardeman % (Auto) 10.4 % Eos % (Auto) 3.0 % Baso % (Auto) 1.3 % Neut # (Auto) 5.40 (1.40-6.50) K/uL Lymph # (Auto) 1.12 L (1.20-3.40) K/uL Hardeman # (Auto) 0.80 H (0.11-0.59) K/uL Eos # (Auto) 0.23 (0.00-0.50) K/uL Baso # (Auto) 0.10 (0.00-0.20) K/uL Immature Gran # (Auto) 0.03 (0.01-0.20) K/uL Polychromasia 1+ Poikilocytosis Present Ovalocytes 1+ PT 13.1 H (9.0-12.0) Seconds INR 1.2 H (0.9-1.1) APTT 29 (21-31) Seconds PTT Ratio 1.1 Sodium 132 L (136-145) mmol/L Potassium 4.4 (3.5-5.1) mmol/L Chloride 108 H (98-107) mmol/L Carbon Dioxide 16 L (21-32) mmol/L Anion Gap 8 (3-11) BUN 71 H (6-23) mg/dl Creatinine 3.09 H (0.6-1.4) mg/dl Est Cr Clr Drug Dosing Not Reportable Est GFR ( Amer) 21.4 ml/min Est GFR (Non-Af Amer) 18.5 ml/min BUN/Creatinine Ratio 23.0 H (10-20) Glucose 148 H (70-99(Fasting)) mg/dl Calcium 9.2 (8.6-10.3) mg/dl Total Bilirubin 1.0 (0.2-1.0) mg/dl AST 15 (13-39) U/L ALT 14 (7-52) U/L Alkaline Phosphatase 92 (34-104) U/L Total Protein 5.3 L (6.0-8.3) gm/dl Albumin 3.2 L (3.4-5.0) gm/dl Globulin 2.1 L (2.5-4.0) gm/dl Albumin/Globulin Ratio 1.5 (0.9-2) Blood Type A Positive Antibody Screen NEGATIVE Crossmatch See Detail Administered Medications Pantoprazole Sodium 40 mg/ (Dextrose) 100 mls @ 20 mls/hr IV Q5H CARO Stop: 04/22/24 16:59 Last Admin: 03/23/24 17:31 Dose: 8 mg/hr, 20 mls/hr Documented By: ANGELINA Octreotide Acetate 500 mcg/ (Sodium Chloride) 100.5 mls @ 10.05 mls/hr IV .Q10H CARO Stop: 04/22/24 17:14 Last Admin: 03/23/24 18:05 Dose: 50 mcg/hr, 10.1 mls/hr Documented By: NRB Discontinued Medications Pantoprazole Sodium 40 mg/ (Syringe) 10 mls @ 5 mls/min IV NOW ONE Stop: 03/23/24 16:17 Last Admin: 03/23/24 16:59 Dose: 5 mls/min Documented By: BRIDGET Octreotide Acetate 50 mcg/ (Syringe) 10 mls @ 3 mls/min IV ONE STA Stop: 03/23/24 17:11 Last Admin: 03/23/24 18:05 Dose: 3 mls/min Documented By: BRIDGET Miscellaneous (Patient's Height &/Or Weight Needed) 1 each N/A ONE ONE Stop: 03/23/24 17:16 Last Admin: 03/23/24 18:09 Dose: 1 each Documented By: BRIDGET Discharge Plan Visit Data Chief Complaint: Weakness Stated Complaint: FATIGUE, WEAKNESS, CAN'T STAND ED Provider: Sean Wu Discharge Problem: Acute GI bleeding, Symptomatic anemia, DELIA (acute kidney injury) Forms Stand Alone Forms: [facility] Prescriptions Prescriptions: No Action furosemide 20 mg tablet 20 mg PO QAM atorvastatin 40 mg Tablet 40 mg PO QAM ondansetron HCl 4 mg Tablet 4 mg PO Q8H PRN (Reason: Nausea) metoprolol succinate 100 mg Tablet Extended Release 24 Hr 100 mg PO BID levothyroxine 88 mcg Tablet 88 mcg PO DAILYBB ascorbic acid (vitamin C) [Vitamin C] 500 mg Tablet 500 mg PO QAM nitroglycerin [Nitrostat] 0.4 mg Tablet, Sublingual 0.4 mg sublingual DIRECTED PRN (Reason: Chest Pain) Patient Comments: pt states has not had to use insulin glargine [Lantus Solostar U-100 Insulin] 100 unit/mL (3 mL) Insulin Pen 38 unit SUBCUT HS cholecalciferol (vitamin D3) [Vitamin D3] 50 mcg (2,000 unit) Capsule 50 mcg PO QAM Trulicity 1.5 mg/0.5 mL Pen Injector 3 mg SUBCUT WK Rx Instructions: TAKES ON SUNDAY EVENING aspirin 81 mg tablet,delayed release (DR/EC) 81 mg PO 3XWK Rx Instructions: MON, WED, & FRI. Eliquis 5 mg tablet 5 mg PO BID Hold Instructions: Resume on 09/15/23. gabapentin 100 mg capsule 200 mg PO HS spironolactone 50 mg tablet 50 mg PO DAILY Referrals Referrals: Lia Meadows MD [Primary Care Provider] -
[2024-03-23 16:27] LABS: Hematocrit (blood only) 23.4 % (42.0-52.0); Hemoglobin 6.7 g/dl (14.0-18.0); Mean Corpuscular Hemoglobin 23.8 pg (25.0-34.0); Mean Corpuscular Hgb Conc 28.6 g/dL (32.0-36.0); Mean Platelet Volume 11.4 fL (9.4-12.4); Platelet Count 168 K/uL (130-400); RDW Standard Deviation 50.9 fL (36.4-46.3); Red Blood Count 2.82 M/uL (4.70-6.10); White Blood Count 7.68 K/ul (4.8-10.8)
[2024-03-23 16:37] LABS: Alanine Aminotransferase 14 U/L (7-52); Albumin Globulin Ratio 1.5 (0.9-2); Albumin Level 3.2 gm/dl (3.4-5.0); Alkaline Phosphatase 92 U/L (34-104); Anion Gap 8 (3-11); Aspartate Aminotransferase 15 U/L (13-39); Blood Urea Nitrogen 71 mg/dl (6-23); Calcium 9.2 mg/dl (8.6-10.3); Carbon Dioxide 16 mmol/L (21-32); Chloride 108 mmol/L (98-107); Est GFR (African American) 21.4 ml/min; Est GFR (Non-African American) 18.5 ml/min; Globulin 2.1 gm/dl (2.5-4.0); Glucose 148 mg/dl (70-99(Fasting)); Potassium 4.4 mmol/L (3.5-5.1); Sodium 132 mmol/L (136-145); Total Protein 5.3 gm/dl (6.0-8.3)
[2024-03-23 16:44] LABS: INR 1.2 (0.9-1.1); Partial Thromboplastin Ratio 1.1; Partial Thromboplastin Time 29 Seconds (21-31); Prothrombin Time 13.1 Seconds (9.0-12.0)
[2024-03-23 16:48] LABS: Basophils % (auto) 1.3 %; Eosinophils # (auto) 0.23 K/uL (0.00-0.50); Immature Granulocytes # (auto) 0.03 K/uL (0.01-0.20); Immature Granulocytes % (auto) 0.4 %; Lymphocytes # (auto) 1.12 K/uL (1.20-3.40); Lymphocytes % (auto) 14.6 %; Monocytes % (auto) 10.4 %; Neutrophils % (auto) 70.3 %; Ovalocytes 1+; Poikilocytosis Present; Polychromasia 1+
--- NOTE | 2024-03-23 16:57 | History & Physical Report ---
<Statement entered by Jose Pierre MD - 03/23/24 19:29> Attending Addendum: Case reviewed with the advanced practitioner. I have personally performed a history and physical examination on the patient. I have reviewed the advanced practitioner's documentation on the date of service referenced in note, and I agree with, and take responsibility for the plan of care. Anemia likely 2/2 UGIB in the setting of recent EGD showing varices. Transfuse <7, consult GI, NPO at al for potential EGD. 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 Acute GIB Acute on chronic anemia in setting of blood loss Cirrhosis w/ hx of esophageal varices Admit to PCU transfuse 2 units PRBC repeat lab work post transfusion clear liquid diet, NPO after midnight PPI bolus/gtt; Octreotide bolus/gtt Consult GI hold eliquis/asa for now obtain CT a/p, check NH3, no asterixis on exam, pt will likely need a t herapeutic paracentesis this admission once medically stable follows [facility] Hepatology, hold lasix/aldactone for now given DELIA, nursing encouraged to obtain 2 large bore IVS Acute/Chronic CKD 3 baseline cr 1.7-1.8 CT a/p to eval GIB/DELIA/ascites pt to receive blood products, will repeat renal function in a.m. and consider IVF after blood products hold Lasix/Aldactone for now T2DM, insulin dependent last a1c August 16., a1c in a.m. Lantus/novolog per protocool. CAD hx of CABG Afib continue metoprolol, currently NSR hold lasix, eliquis, asa, aldactone no chest pain Hx of CVA continue statin asa MWF - hold until EGD Acute stress reaction son concern pt is struggling mentally given his state of health, he has never seen psych or had therapy but encourages we follow this closely DVT ppx: SCDS for now FULL CODE PCP: Dori Dispo: admit to PCU, pt likely to need rehab, PT/OT once medically appropriate Pt was seen and examined in collaboration with Dr. Pierre, please see addendum A total of 76 minutes was spent coordinating, documenting, and providing care for this patient excluding time spent in the performance of separately billed services. This included personally viewing all current laboratories and imaging studies, medication reconciliation, outpatient chart review, and discussion with specialists. 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 He would like provider updates if able. His number is [phone]. History of Present Illness Chief Complaint: Black tarry stools x 2-3 weeks. 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 He states his symptoms have been ongoing for the last 3 months. He reports having loose runny stool ever since completing a years worth of amoxicillin. He did not really take note but over the last few weeks and noticed his stools to be more black. He also been has getting increasingly more weak having difficulty walking and almost falling. He feels his abdomen is more distended, but this comes and goes. He denies any fever, chills, sweats, syncope, chest pain, shortness breath at rest, nausea, vomiting, dysuria, increased urgency or frequency with urination or hematuria. He states he tends to have incontinence of stool and always moves his bowels when he urinates. He denies any trini bright red blood. He is currently on Eliquis and his last dose was in the p.m. on 03/22. He also takes aspirin 3 times a week and his last dose was Sunday morning. Son at bedside notes that he has been getting increasingly weak over the last several weeks, but this morning he was unable to even get out of bed. He had reported a steady decline over the last few months, but patient was resistant to getting evaluated. He follows with Dr. Ya of Hepatology. He was last seen in November of 2023. Last EGD October 2023 revealed small esophageal varices with no bleeding or stigmata of recent bleeding. Scarring is seen from prior banding. Portal hypertensive gastropathy. Son feels since his last hepatology evaluation he has had a steady decline. He did have a paracentesis back in December. He denies any significant NSAID use. He denies any trini abdominal pain. Son reports concern in patient's emotional/psychological wellbeing as he had noted him to become increasingly more down apathetic over the last few months. In ED patient was hemodynamically stable although hemoglobin was noted to be 6.7. He was consented and typed and crossed with 2 units to be transfused. He was grossly heme positive per ED provider. Further lab abnormalities include sodium of 132, BUN 71, creatinine 3.09. Allergies Allergy/AdvReac Type Severity Reaction Status Date / Time Sulfa (Sulfonamide Allergy Unknown CHILDHOOD Verified 09/13/23 08:32 Antibiotics) ALLERGY--CAN'T REMEMBER tramadol AdvReac Severe SEVERE Verified 09/13/23 08:32 VOMITING omeprazole AdvReac Intermediate PER PT Verified 09/13/23 08:32 "DID THE OPPOSITE, MADE ME WORSE". Home Medications Medication Instructions Recorded Confirmed Type ascorbic acid (vitamin C) 500 mg 500 mg PO QAM 11/08/21 03/23/24 History tablet (Vitamin C) atorvastatin 40 mg tablet 40 mg PO QAM 11/08/21 03/23/24 History cholecalciferol (vitamin D3) 50 50 mcg PO QAM 11/08/21 03/23/24 History mcg (2,000 unit) capsule (Vitamin D3) dulaglutide 1.5 mg/0.5 mL 3 mg subcut WK 11/08/21 03/23/24 History subcutaneous pen injector (Trulicity) insulin glargine 100 unit/mL (3 38 unit subcut HS 11/08/21 03/23/24 History mL) subcutaneous pen (Lantus Solostar U-100 Insulin) levothyroxine 88 mcg tablet 88 mcg PO DAILYBB 11/08/21 03/23/24 History metoprolol succinate 100 mg 100 mg PO BID 11/08/21 03/23/24 History tablet,extended release 24 hr nitroglycerin 0.4 mg sublingual 0.4 mg sublingual DIRECTED PRN 11/08/21 03/23/24 History tablet (Nitrostat) Chest Pain ondansetron HCl 4 mg tablet 4 mg PO Q8H PRN Nausea 11/08/21 03/23/24 History aspirin 81 mg tablet,delayed 81 mg PO 3XWK 09/18/22 03/23/24 History release apixaban 5 mg tablet (Eliquis) 5 mg PO BID 09/19/22 03/23/24 History furosemide 20 mg tablet 20 mg PO QAM 10/04/22 03/23/24 History gabapentin 100 mg capsule 200 mg PO HS 03/23/24 03/23/24 History spironolactone 50 mg tablet 50 mg PO DAILY 03/23/24 03/23/24 History Past Med/Surg History Problem List (Updated 03/23/24 @ 17:17 by Florida Haynes, PA-C) Acute blood loss anemia Esophageal varices GIB (gastrointestinal bleeding) Incomplete emptying of bladder BPH NOS w ur obs/LUTS Encounter for pre-operative examination Calculus of proximal right ureter Hydronephrosis (Acute) Renal colic (Acute) Acute urinary retention (Acute) Leukopenia (Acute) Pancytopenia longterm (current) use of antibiotics 2 gm bid amoxicillin for empyema through November 2022-- completed amoxicillin now started on doxycycline DELIA (acute kidney injury) (Acute) Abdominal pain (Acute) Chylothorax CAD (coronary artery disease) Multivessel CAD including mid RCA 90% lesion with mild diffuse disease, 80% occlusion of the proximal LAD with heavily calcified lesion, and 100% FISH PEDDLER of left circumflex with [id number] and [id number] collaterals, per cath 05/27/2021 at [facility] [place] [place] Status post CABG x3 (PAEZ to LAD, AO to RCA, AO to OM1) with and the graphic saphenous vein harvest, 05/30/2021 Cirrhosis of liver with ascites states has to have a paracentesis done Atrial fibrillation post operative CABG 2020, denies current A fib Ischemic cardiomyopathy LVEF 30% post CABG; GRADE I diastolic dysfunction, NYHA class 2 Hypothyroid Hypertension Hyperlipidemia Diabetes mellitus IDDM Carotid artery stenosis Medical History longterm (current) use of anticoagulants Osteoarthritis History of kidney stones stents placed and removed Stroke patient denies CKD (chronic kidney disease) stage 3, GFR 30-59 ml/min TIA (transient ischemic attack) in [place] prior to 2020 AND post operatively 2020 [facility], no deficits 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, months of abtx---no antibiotics currently Surgical History Hx of cystoscopy w/ stent - 09/20/22 Hx of cardiac catheterization 05/2021 Hx of colonoscopy History of esophagogastroduodenoscopy (EGD) Hx of chest tube placement Hx of cholecystectomy History of coronary artery bypass graft CABG x 3 (PAEZ -LAD; AO-RCA; AO-OM1 w/ graphic SVG on 05/30/2021 Family History Other Heart disease Social History Smoking Status: Never smoker Tobacco Type: Cigarettes packs per day: 1; Cigarettes Per Day: quit ~ 30 yrs ago; Second Hand Exposure: No; Do You Dip or Chew Tobacco: No; Hx Alcohol Use: No Hx Substance Use: No Preferred Language: Albanian Communication Ability: Effective Visual Impairment: No Limitations Cold Storage Superintendent Required: No Beliefs That Will Affect Care: None Current Living Situation: Spouse Feels Safe at Home: Yes Assistive Devices: Glasses Review of Systems Review of Systems: All systems reviewed & are unremarkable except as noted in HPI & below Physical Exam Physical Exam: Constitutional: chronically ill appearing, pale, answers questions approp, vitals as above, NAD, sitting up in bed Head: Normocephalic, Atraumatic Eyes: PERRL, conjunctivae normal, anicteric sclerae ENMT: external ear and nose normal, oropharynx normal dry membranes, front tooth broke off Neck: trachea midline, no thyromegaly normal visual inspection Respiratory: normal respiratory effort, no audible w/r/r Cardiovascular: RRR HR in 70s Chest: normal inspection of chest Abdomen: distended abd but soft Musculoskeletal: AROM x 4, Skin: no rashes, warm and dry normal turgor Neurologic: no face palsy, no dysarthria CN's II-XI intact bilaterally and moves all extremities Psychiatric: A+Ox3, dysthymic affect Results & Data Results & Data Vital Signs (Past 12 Hours) Vital Signs Temp Pulse Resp BP Pulse Ox O2 Del Method 03/23/24 15:25 36.8 C 78 19 111/67 100 Room Air Laboratory Results I have independently reviewed and interpreted patient's admitting labs including CBC, CMP, PTT, PT/INR, trop ECG Additional Comments: I have independently reviewed and interpreted patient's admitting EKG which revealed: 77SR 1st degree AVB, RBBB, poor quality, lateral lead ST abn COVID-19 Results Results COVID-19 Adm Lab Results: RBC 2.82 M/uL (4.70-6.10) L 03/23/24 WBC 7.68 K/ul (4.8-10.8) 03/23/24 Hgb 6.7 g/dl (14.0-18.0) L* 03/23/24 Hct 23.4 % (42.0-52.0) L 03/23/24 Plt Count 168 K/uL (130-400) 03/23/24 Lymphocytes (%) (Auto) 14.6 % 03/23/24 Monocytes # (Auto) 0.80 K/uL (0.11-0.59) H 03/23/24 Eosinophils # (Auto) 0.23 K/uL (0.00-0.50) 03/23/24 Immature Granulocyte % (Auto) 0.4 % 03/23/24 Neutrophils # (Auto) 5.40 K/uL (1.40-6.50) 03/23/24 Lymphocytes # (Auto) 1.12 K/uL (1.20-3.40) L 03/23/24 Monocytes # (Auto) 0.80 K/uL (0.11-0.59) H 03/23/24 Eosinophils # (Auto) 0.23 K/uL (0.00-0.50) 03/23/24 Basophils # (Auto) 0.10 K/uL (0.00-0.20) 03/23/24 Immature Granulocyte # (Auto) 0.03 K/uL (0.01-0.20) 4 Polychromasia 1+ 03/23/24 Poikilocytosis Present 03/23/24 Ovalocytes 1+ 03/23/24 Na 132 mmol/L (136-145) L 03/23/24 K 4.4 mmol/L (3.5-5.1) 03/23/24 Cl 108 mmol/L (98-107) H 03/23/24 CO2 16 mmol/L (21-32) L 03/23/24 Anion Gap 8 (3-11) 03/23/24 BUN 71 mg/dl (6-23) H 03/23/24 Creatinine 3.09 mg/dl (0.6-1.4) H 03/23/24 BUN/Creatinine Ratio 23.0 (10-20) H 03/23/24 Glucose Level 148 mg/dl (70-99(Fasting)) H 03/23/24 Ca 9.2 mg/dl (8.6-10.3) 03/23/24 Total Bilirubin 1.0 mg/dl (0.2-1.0) 03/23/24 AST/SGOT 15 U/L (13-39) 03/23/24 ALT/SGPT 14 U/L (7-52) 03/23/24 Alkaline Phosphatase 92 U/L (34-104) 03/23/24 Total Protein 5.3 gm/dl (6.0-8.3) L 03/23/24 Albumin 3.2 gm/dl (3.4-5.0) L 03/23/24 Globulin 2.1 gm/dl (2.5-4.0) L 03/23/24 Albumin/Globulin Ratio 1.5 (0.9-2) 03/23/24 PTT 29 Seconds (21-31) 03/23/24 INR 1.2 (0.9-1.1) H 03/23/24 Code Status & VTE Plan Code Status FULL CODE
[2024-03-23] MEDS: PANTOprazole 40 MG in SYRINGE 0 ML IV ONE (16:59)
[2024-03-23] MEDS ORDERED: STAT IV/IM STA (17:05)
[2024-03-23] MEDS: PANTOprazole 40 MG in DEXTROSE 5% MINI-B 100 ML IV SCH (17:31)
[2024-03-23] MEDS: OCTREOTIDE ACETATE 50 MCG in SYRINGE 9.5 ML IV STA (18:05)
[2024-03-23] MEDS: OCTREOTIDE ACETATE 500 MCG in 0.9 % SODIUM CHLORIDE 100 ML IV SCH (18:05)
[2024-03-23] MEDS: Patient's HEIGHT &/or WEIGHT Needed ONE (18:09)
[2024-03-23] MEDS ORDERED: GLUCAGON FOR INJ 1 MG VIAL SQ PRN (19:48)
[2024-03-23] MEDS ORDERED: ACETAMINOPHEN 325 MG TAB PO PRN (19:48)
[2024-03-23] MEDS ORDERED: ONDANSETRON INJ 2 MG/ML 2 ML VIAL IV PRN (19:48)
[2024-03-23] MEDS ORDERED: GLUCOSE 40% GEL 15 GM TUBE PO PRN (19:48)
[2024-03-23] MEDS ORDERED: GLUCOSE 10 TAB/TUBE PO PRN (19:48)
[2024-03-23] MEDS ORDERED: DEXTROSE 50% 50 ML SYRINGE IV PRN (19:48)
[2024-03-23] MEDS ORDERED: CARBOHYDRATES FOR HYPOGLYCEMIA PO PRN (19:48)
[2024-03-23] MEDS: INSULIN ASPART PER UNIT CHARGE SC SCH (21:20)
[2024-03-23] MEDS: LANTUS PER UNIT CHARGE SQ SCH (21:20)
[2024-03-23] MEDS: METOPROLOL SUCC 50MG EXT REL TAB PO SCH (22:07)
--- NOTE | 2024-03-23 23:37 | CT Scan Report ---
Exam(s): CT ABDOMEN + PELVIS Without Contrast EXAM: CT Abdomen and Pelvis Without Intravenous Contrast CLINICAL HISTORY: Reason for exam: GIB, ascites, abimael. TECHNIQUE: Axial computed tomography images of the abdomen and pelvis without intravenous contrast. CTDI is 23.35 mGy and DLP is 1198.87 mGy-cm. Automated exposure control was utilized for the study. A dose lowering technique was utilized adhering to the principles of ALARA. COMPARISON: 09/13/2022. FINDINGS: Exam is limited due to lack of contrast material. Lung bases: No consolidation. The heart is not enlarged but contains extensive coronary artery calcifications ABDOMEN: Liver: The liver is enlarged. Gallbladder and bile ducts: The patient is status post cholecystectomy.. No ductal dilation. Pancreas: The visualized portions of the pancreas, on this noncontrast study, are grossly unremarkable. Spleen: The spleen is enlarged.. Adrenals: No mass. Kidneys and ureters: No obstructing stones. No hydronephrosis. There are rounded lucencies in both kidneys. Stomach and bowel: There is air and fluid noted within the stomach. There is air and stool noted in the colon. There may be thickening of the villagomez of the descending colon, sigmoid colon and rectum. There are diverticula present on the colon.. PELVIS: Appendix: No findings to suggest acute appendicitis. Bladder: No calculi are noted within the bladder.. Reproductive: Unremarkable as visualized. ABDOMEN and PELVIS: Intraperitoneal space: No free air. There is free fluid noted in the abdomen and pelvis.. Bones/joints: There are degenerative changes in the spine.. Soft tissues: There is a left inguinal hernia containing fat and fluid. Vasculature: There are atherosclerotic changes. No abdominal aortic aneurysm. Lymph nodes: No enlarged lymph nodes. IMPRESSION: Limited exam. There may be thickening of the villagomez of the descending colon, sigmoid colon and rectum. This may be due to under distention. Cannot exclude colitis. Diverticulosis Ascites. This has increased compared to previous exam Hepatosplenomegaly. There are possible bilateral renal cysts. See discussion above. Electronically signed by: Walker Hernández MD 03/23/24 23:36 PM
[2024-03-24 04:04] LABS: Albumin Globulin Ratio 1.5 (0.9-2); Albumin Level 2.9 gm/dl (3.4-5.0); BUN Creatinine Ratio 24.6 (10-20); Bilirubin,Total 2.7 mg/dl (0.2-1.0); Calcium 8.9 mg/dl (8.6-10.3); Creatinine Clr Calc Pharmacy 20.8 ml/min; Est GFR (African American) 22.5 ml/min; Est GFR (Non-African American) 19.4 ml/min; Globulin 1.9 gm/dl (2.5-4.0); Magnesium 1.9 mg/dl (1.7-2.4); Potassium 4.7 mmol/L (3.5-5.1); Total Protein 4.8 gm/dl (6.0-8.3)
[2024-03-24 04:13] LABS: Hematocrit (blood only) 28.3 % (42.0-52.0); Hemoglobin 8.7 g/dl (14.0-18.0); Mean Corpuscular Hgb Conc 30.7 g/dL (32.0-36.0); Mean Corpuscular Volume 84.7 fL (80.0-100.0); Mean Platelet Volume 11.7 fL (9.4-12.4); Platelet Count 89 K/uL (130-400); RDW Coefficient of Variation 15.7 % (11.5-14.5); RDW Standard Deviation 47.9 fL (36.4-46.3); Red Blood Count 3.34 M/uL (4.70-6.10); White Blood Count 5.11 K/ul (4.8-10.8)
[2024-03-24 04:14] LABS: Basophils # (auto) 0.04 K/uL (0.00-0.20); Basophils % (auto) 0.8 %; Eosinophils # (auto) 0.09 K/uL (0.00-0.50); Eosinophils % (auto) 1.8 %; Immature Granulocytes # (auto) 0.03 K/uL (0.01-0.20); Immature Granulocytes % (auto) 0.6 %; Lymphocytes # (auto) 0.59 K/uL (1.20-3.40); Lymphocytes % (auto) 11.5 %; Monocytes # (auto) 0.62 K/uL (0.11-0.59); Monocytes % (auto) 12.1 %; Neutrophils # (auto) 3.74 K/uL (1.40-6.50); Neutrophils % (auto) 73.2 %
[2024-03-24] MEDS ORDERED: Nursing to Pharmacy Communication SCH (05:00)
[2024-03-24] MEDS: LEVOTHYROXINE SODIUM 88 MCG TABLET PO SCH (06:13)
[2024-03-24] MEDS: INSULIN ASPART PER UNIT CHARGE SC SCH (06:16)
[2024-03-24] MEDS: ATORVASTATIN 40 MG TAB PO SCH (08:06)
[2024-03-24 08:37] LABS: Estimated Average Glucose 137 mg/dl; Hemoglobin A1C 6.4 % (4.5-5.6)
--- NOTE | 2024-03-24 08:59 | Hospitalist Progress Note ---
Date of Service March 24, 2024 Assessment & Plan (1) GIB (gastrointestinal bleeding): (2) Acute blood loss anemia: (3) Cirrhosis of liver with ascites: (4) Esophageal varices: (5) Diabetes mellitus: (6) CAD (coronary artery disease): (7) Atrial fibrillation: (8) Hypertension: Plan Mr. Francois 78-year-old male has complex significant past medical history of CAD status post CABG x3 (PAEZ to LAD, AO to RCA, AO to OM1 05/2021), ischemic cardiomyopathy LVEF 30% postop CABG, PAF postoperative CABG, history of multiple small CVA involving left anterior frontal lobe and left posterior temporal lobe following surgery, RBBB, HTN, HLD, T2DM, hypothyroidism, mild aortic sclerosis, mild mitral valve leaflet prolapse with mild MR, history of chronic use of Xarelto in setting of possible CVA, history of moderate size left pleural effusion post CABG, status post thoracentesis with recurrent left pleural effusion requiring multiple hospitalizations status post thoracic duct embolization 09/06/[address] Jean, CKD stage III who is admitted for concerns of weakness and found to be anemic and with decompensated cirrhosis marked by ascites. Patient reported melena and has known varices. Hgb was 6.7 on admission and is n ow s/p 2 UPRBC. GI to performed EGD this afternoon. #Acute on chronic anemia in setting of blood loss, c/f GIB #Melena #Hx of esophageal varices #Portal Gastropathy s/p banding 09/2023 s/p 2 U prbc on admission for hgb 6.7, up to 8 .7 -Continue on protonix and ocretide -Trend CBC q 12 hours -Transfuse < 8.0 2/2 noted ICM history #Cirrhosis decompensated - MELD-Na: 25 on admission - Last EGD 09/2023 large varices banded x 3 and portal HTN gatropathy - PSE: Denies h/o HE, no evidence of HE on exam, ctm ammonia 14 on admission - Ascites: hold home Lasix:[place] 20:50 -Consult IR for paracentesis tomorrow - SBP: c/w Rocephin f/u cell count - EV: c/w octreotide gtt, PPI gtt CTX x5 d - HRS: 1.0 up to 2.7 Cr, albumin challenge - Daily CMP + INR to calculate MELD; low Na diet - GI consult #Acute on Chronic CKD 3 baseline cr 1.7-1.8 CT a/p to eval GIB/DELIA/ascites hold lasix and aldactone albumin challenge Nephrology following Repeat Cr in am #HFrecEF iso ischemic cardiomyopathy LVEF 30% -->55-60% 2022 #CAD status post CABG x3 (PAEZ to LAD, AO to RCA, AO to OM1 05/2021) * Multivessel CAD including mid RCA 90% lesion with mild diffuse disease, 80% occlusion of the proximal LAD with heavily calcified lesion, and 100% 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 Daily weights. Repeat ECHO continue statin #Post op afib #Hx of CVA Holding eliquis and ASA 2/2 GIB monitor on tele #T2DM, insulin dependent last a1c August 16.4, a1c 6.4 iso acute anemia Lantus/novolog per protocol. Acute stress reaction son concern pt is struggling mentally given his state of health, he has never seen psych or had therapy but encourages we follow this closely #Hypothyroidism continue synthroid DVT ppx: SCDS for now FULL CODE PCP: Dori Dispo: admit to PCU, pt likely to need rehab, PT/OT once medically appropriate Pt nikhil Francois would like provider updates if able. His number is [phone]. Admission and Anticipated Discharge Date Admission Date: March 23, 2024 Subjective Evaluated at bedside. Reports fatigue and abdominal distention being his greatest concerns. He states he felt the black stool wasn't necessarily alarming. Questioned his understanding of cirrhosis, and he states that he "never drank that much" discussed his liver disease and explained to which he felt more reassured Denies any active symptoms this morning, just notes feeling fatigued and not safe at home Physical Exam Constitutional: WD/WN, vitals as above Respiratory: normal respiratory effort, lungs clear to auscultation Cardiovascular: RRR, no murmur, no edema Gastrointestinal (Abdomen): protuberant, but soft abdomen with fluid shift Results & Data Results & Data Vital Signs (Past 12 Hours) Vital Signs Temp Pulse Pulse Resp BP BP Pulse Ox 03/24/24 08:30 36.6 C 80 18 106/64 97 03/24/24 03:37 36.4 C L 87 18 100/63 95 03/24/24 00:17 75 18 98/63 L 99 03/23/24 23:50 36.2 C L 65 18 98/65 L 100 03/23/24 23:10 36.2 C L 74 18 103/66 96 03/23/24 23:05 36.2 C L 73 18 102/67 100 03/23/24 22:16 36.2 C L 76 18 99/58 L 96 03/23/24 22:03 36.2 C L 76 18 97/61 L 97 03/23/24 21:42 76 03/23/24 21:30 36.3 C L 85 17 94/56 L 99 O2 Del Method O2 Flow Rate 03/24/24 08:30 Room Air 03/24/24 03:37 Room Air 03/24/24 00:17 03/23/24 23:50 Room Air 03/23/24 23:10 0 03/23/24 23:05 0 03/23/24 22:16 0 03/23/24 22:03 0 03/23/24 21:42 03/23/24 21:30 Laboratory Results Short CBC 03/23/24 03/24/24 Range/Units 15:56 02:51 WBC 7.68 5.11 (4.8-10.8) K/ul Hgb 6.7 L* 8.7 L (14.0-18.0) g/dl Hct 23.4 L 28.3 L (42.0-52.0) % Plt Count 168 89 L (130-400) K/uL BMP 03/23/24 03/24/24 15:56 02:51 Sodium 132 L 134 L Potassium 4.4 4.7 Chloride 108 H 110 H Carbon Dioxide 16 L 18 L BUN 71 H 73 H Creatinine 3.09 H 2.97 H Glucose 148 H 141 H Calcium 9.2 8.9 Liver Function 03/23/24 03/24/24 Range/Units 15:56 02:51 Total Bilirubin 1.0 2.7 H D (0.2-1.0) mg/dl AST 15 13 (13-39) U/L ALT 14 12 (7-52) U/L Alkaline Phosphatase 92 84 (34-104) U/L Albumin 3.2 L 2.9 L (3.4-5.0) gm/dl Medications Administered Home Medications Medication Instructions Recorded Confirmed Last Taken ascorbic acid (vitamin C) 500 mg 500 mg PO QAM 11/08/21 03/23/24 09/12/23 tablet (Vitamin C) atorvastatin 40 mg tablet 40 mg PO QAM 11/08/21 03/23/24 09/12/23 cholecalciferol (vitamin D3) 50 50 mcg PO QAM 11/08/21 03/23/24 09/12/23 mcg (2,000 unit) capsule (Vitamin D3) dulaglutide 1.5 mg/0.5 mL 3 mg subcut WK 11/08/21 03/23/24 09/05/23 subcutaneous pen injector (Trulicity) insulin glargine 100 unit/mL (3 38 unit subcut HS 11/08/21 03/23/24 09/12/23 22:00 mL) subcutaneous pen (Lantus 18 units Solostar U-100 Insulin) levothyroxine 88 mcg tablet 88 mcg PO DAILYBB 11/08/21 03/23/24 09/13/23 04:00 metoprolol succinate 100 mg 100 mg PO BID 11/08/21 03/23/24 09/12/23 tablet,extended release 24 hr nitroglycerin 0.4 mg sublingual 0.4 mg sublingual DIRECTED PRN 11/08/21 03/23/24 Unknown tablet (Nitrostat) Chest Pain ondansetron HCl 4 mg tablet 4 mg PO Q8H PRN Nausea 11/08/21 03/23/24 6 Months Ago ~03/15/23 aspirin 81 mg tablet,delayed 81 mg PO 3XWK 09/18/22 03/23/24 09/11/23 release apixaban 5 mg tablet (Eliquis) 5 mg PO BID 09/19/22 03/23/24 09/11/23 09:00 furosemide 20 mg tablet 20 mg PO QAM 10/04/22 03/23/24 09/12/23 gabapentin 100 mg capsule 200 mg PO HS 03/23/24 03/23/24 Unknown spironolactone 50 mg tablet 50 mg PO DAILY 03/23/24 03/23/24 Unknown Active Medications Generic Name Dose Route Start Last Admin Trade Name Alin PRN Reason Stop Dose Admin Atorvastatin Calcium 40 mg 03/24/24 09:00 03/24/24 08:06 Atorvastatin 40 Mg Tab PO 04/23/24 08:59 40 mg QAM CARO Administration Pantoprazole Sodium 40 mg/ 100 mls @ 20 mls/hr 03/23/24 17:00 03/24/24 08:06 Dextrose IV 04/22/24 16:59 8 mg/hr Q5H CARO 20 mls/hr Administration 8 MG/HR Octreotide Acetate 500 mcg/ 100.5 mls @ 10.05 mls/hr 03/23/24 17:15 03/24/24 01:38 Sodium Chloride IV 04/22/24 17:14 50 mcg/hr .Q10H CARO 10.1 mls/hr Administration 50 MCG/HR Insulin Aspart 0 units 03/24/24 06:00 03/24/24 06:16 Insulin Aspart Per Unit Charge SC 04/23/24 05:59 1 units Q6 CARO Administration Insulin Glargine 0 - 30 units 03/23/24 21:00 03/23/24 21:20 Lantus Per Unit Charge SQ 04/22/24 20:59 15 units HS CARO Administration Levothyroxine Sodium 88 mcg 03/24/24 06:30 03/24/24 06:13 Levothyroxine Sodium 88 Mcg Tablet PO 04/23/24 06:29 88 mcg DAILYBB CARO Administration Metoprolol Succinate 100 mg 03/23/24 21:00 03/24/24 08:05 Metoprolol Succ 50mg Ext Rel Tab PO 04/22/24 20:59 100 mg BID CARO Administration
--- NOTE | 2024-03-24 10:31 | Anesthesiology Consultation ---
Date of Service March 24, 2024 Assessment & Plan Chart Review Chart Review: Acceptable Risk for Surgery and Patient NOT seen in Pre Admission Testing Consults Requested none History Height/Weight Height: 5 ft 9 in Weight: 77.564 kg Allergies Allergy/AdvReac Type Severity Reaction Status Date / Time Sulfa (Sulfonamide Allergy Unknown CHILDHOOD Verified 09/13/23 08:32 Antibiotics) ALLERGY--CAN'T REMEMBER tramadol AdvReac Severe SEVERE Verified 09/13/23 08:32 VOMITING omeprazole AdvReac Intermediate PER PT Verified 09/13/23 08:32 "DID THE OPPOSITE, MADE ME WORSE". Medications Home Medications Medication Instructions Recorded Confirmed Last Taken ascorbic acid (vitamin C) 500 mg 500 mg PO QAM 11/08/21 03/23/24 09/12/23 tablet (Vitamin C) atorvastatin 40 mg tablet 40 mg PO QAM 11/08/21 03/23/24 09/12/23 cholecalciferol (vitamin D3) 50 50 mcg PO QAM 11/08/21 03/23/24 09/12/23 mcg (2,000 unit) capsule (Vitamin D3) dulaglutide 1.5 mg/0.5 mL 3 mg subcut WK 11/08/21 03/23/24 09/05/23 subcutaneous pen injector (Trulicity) insulin glargine 100 unit/mL (3 38 unit subcut HS 11/08/21 03/23/24 09/12/23 22:00 mL) subcutaneous pen (Lantus 18 units Solostar U-100 Insulin) levothyroxine 88 mcg tablet 88 mcg PO DAILYBB 11/08/21 03/23/24 09/13/23 04:00 metoprolol succinate 100 mg 100 mg PO BID 11/08/21 03/23/24 09/12/23 tablet,extended release 24 hr nitroglycerin 0.4 mg sublingual 0.4 mg sublingual DIRECTED PRN 11/08/21 03/23/24 Unknown tablet (Nitrostat) Chest Pain ondansetron HCl 4 mg tablet 4 mg PO Q8H PRN Nausea 11/08/21 03/23/24 6 Months Ago ~03/15/23 aspirin 81 mg tablet,delayed 81 mg PO 3XWK 09/18/22 03/23/24 09/11/23 release apixaban 5 mg tablet (Eliquis) 5 mg PO BID 09/19/22 03/23/24 09/11/23 09:00 furosemide 20 mg tablet 20 mg PO QAM 10/04/22 03/23/24 09/12/23 gabapentin 100 mg capsule 200 mg PO HS 03/23/24 03/23/24 Unknown spironolactone 50 mg tablet 50 mg PO DAILY 03/23/24 03/23/24 Unknown Active Medications Generic Name Dose Route Start Last Admin Trade Name Alin PRN Reason Stop Dose Admin Atorvastatin Calcium 40 mg 03/24/24 09:00 03/24/24 08:06 Atorvastatin 40 Mg Tab PO 04/23/24 08:59 40 mg QAM CARO Administration Pantoprazole Sodium 40 mg/ 100 mls @ 20 mls/hr 03/23/24 17:00 03/24/24 08:06 Dextrose IV 04/22/24 16:59 8 mg/hr Q5H CARO 20 mls/hr Administration 8 MG/HR Octreotide Acetate 500 mcg/ 100.5 mls @ 10.05 mls/hr 03/23/24 17:15 03/24/24 01:38 Sodium Chloride IV 04/22/24 17:14 50 mcg/hr .Q10H CARO 10.1 mls/hr Administration 50 MCG/HR Insulin Aspart 0 units 03/24/24 06:00 03/24/24 06:16 Insulin Aspart Per Unit Charge SC 04/23/24 05:59 1 units Q6 CARO Administration Insulin Glargine 0 - 30 units 03/23/24 21:00 03/23/24 21:20 Lantus Per Unit Charge SQ 04/22/24 20:59 15 units HS CARO Administration Levothyroxine Sodium 88 mcg 03/24/24 06:30 03/24/24 06:13 Levothyroxine Sodium 88 Mcg Tablet PO 04/23/24 06:29 88 mcg DAILYBB CARO Administration Metoprolol Succinate 100 mg 03/23/24 21:00 03/24/24 08:05 Metoprolol Succ 50mg Ext Rel Tab PO 04/22/24 20:59 100 mg BID CARO Administration Past Medical History Medical History shelter (current) use of anticoagulants Osteoarthritis History of kidney stones stents placed and removed Stroke patient denies CKD (chronic kidney disease) stage 3, GFR 30-59 ml/min TIA (transient ischemic attack) in [place] prior to 2020 AND post operatively 2020 [facility], no deficits 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, months of abtx---no antibiotics currently Past Family History Family History Other Heart disease Past Surgical History Surgical History Hx of cystoscopy w/ stent - 09/20/22 Hx of cardiac catheterization 05/2021 Hx of colonoscopy History of esophagogastroduodenoscopy (EGD) Hx of chest tube placement Hx of cholecystectomy History of coronary artery bypass graft CABG x 3 (PAEZ -LAD; AO-RCA; AO-OM1 w/ graphic SVG on 05/30/2021 Social History Smoking Status: Former smoker tobacco type: cigarettes Smoking cigarettes per day: quit ~ 30 yrs ago Do You Dip or Chew Tobacco: No Smoking End Date: 30 years ago Hx Alcohol Use: No Hx Substance Use: No substance use type: does not use Physical Exam Vital Signs Last Vital Signs Temp 36.6 C 03/24/24 08:30 Pulse 80 03/24/24 08:30 Resp 18 03/24/24 08:30 BP 106/64 03/24/24 08:30 Pulse Ox 97 03/24/24 08:30 O2 Del Method Room Air 03/24/24 08:30 O2 Flow Rate 0 03/23/24 23:10 Testing Laboratory Results 03/24/24 02:51 03/24/24 02:51 PT 13.1 Seconds (9.0-12.0) H 03/23/24 15:56 INR 1.2 (0.9-1.1) H 03/23/24 15:56 APTT 29 Seconds (21-31) 03/23/24 15:56 Hemoglobin A1c 6.4 % (4.5-5.6) H 03/24/24 02:51 Blood Type A Positive 03/23/24 16:25 Antibody Screen NEGATIVE 03/23/24 16:25 03/24/24 03/23/24 04:48 23:04 POC Glucose 169 H 164 H
--- NOTE | 2024-03-24 10:57 | Gastrointestinal Consultation ---
Date of Consultation March 24, 2024 Assessment & Plan (1) Acute blood loss anemia: Patient with melena & anemia with history of portal hypertensive gastropathy, esophageal varices, & Eliquis/ASA use. He presented with symptomatic anemia with an H/H of 6.7/23.4. Hgb now 8.7/28.3 after 2 units PRBCs. He is currently on IV Protonix gtt and IV Octreotide gtt. Keep NPO & proceed with EGD today for further evaluation. Continue to monitor H/H and for overt signs of further GI bleeding. Supervising Physician Co-Signing Physician Notes I saw and examined this patient with our nurse practitioner and agree with her assessment and plan. Will proceed with endoscopy today to further evaluate cause of GI bleeding. Continue plan as outlined by nurse practitioner. 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 Ya at [facility]. Patient presented to the ED with black, tarry stool ongoing x 3 months. He notes that over the past few weeks the stool became more dark and he was getting weaker. He denies BRBPR, hematemesis, epigastric pain, lower abdominal pain, or other acute concerns at present. He takes Eliquis but last dose was on 03/22. He takes ASA 81 mg daily and his last dose was 03/21. [facility] revealed esophageal varices without bleeding. There was scarring seen from prior banding and portal hypertensive gastropathy. Last paracentesis reportedly December 2023. His H/H was 6.7/23.4 on admission but he has since been transfused 2 units PRBCs and is cur rently 8.7/28.3. Obviously heme +. Allergies Allergy/AdvReac Type Severity Reaction Status Date / Time Sulfa (Sulfonamide Allergy Unknown CHILDHOOD Verified 09/13/23 08:32 Antibiotics) ALLERGY--CAN'T REMEMBER tramadol AdvReac Severe SEVERE Verified 09/13/23 08:32 VOMITING omeprazole AdvReac Intermediate PER PT Verified 09/13/23 08:32 "DID THE OPPOSITE, MADE ME WORSE". Home Medications Medication Instructions Recorded Confirmed Type ascorbic acid (vitamin C) 500 mg 500 mg PO QAM 11/08/21 03/23/24 History tablet (Vitamin C) atorvastatin 40 mg tablet 40 mg PO QAM 11/08/21 03/23/24 History cholecalciferol (vitamin D3) 50 50 mcg PO QAM 11/08/21 03/23/24 History mcg (2,000 unit) capsule (Vitamin D3) dulaglutide 1.5 mg/0.5 mL 3 mg subcut WK 11/08/21 03/23/24 History subcutaneous pen injector (Trulicity) insulin glargine 100 unit/mL (3 38 unit subcut HS 11/08/21 03/23/24 History mL) subcutaneous pen (Lantus Solostar U-100 Insulin) levothyroxine 88 mcg tablet 88 mcg PO DAILYBB 11/08/21 03/23/24 History metoprolol succinate 100 mg 100 mg PO BID 11/08/21 03/23/24 History tablet,extended release 24 hr nitroglycerin 0.4 mg sublingual 0.4 mg sublingual DIRECTED PRN 11/08/21 03/23/24 History tablet (Nitrostat) Chest Pain ondansetron HCl 4 mg tablet 4 mg PO Q8H PRN Nausea 11/08/21 03/23/24 History aspirin 81 mg tablet,delayed 81 mg PO 3XWK 09/18/22 03/23/24 History release apixaban 5 mg tablet (Eliquis) 5 mg PO BID 09/19/22 03/23/24 History furosemide 20 mg tablet 20 mg PO QAM 10/04/22 03/23/24 History gabapentin 100 mg capsule 200 mg PO HS 03/23/24 03/23/24 History spironolactone 50 mg tablet 50 mg PO DAILY 03/23/24 03/23/24 History Patient History 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 Osteoarthritis History of kidney stones stents placed and removed Stroke patient denies CKD (chronic kidney disease) stage 3, GFR 30-59 ml/min TIA (transient ischemic attack) in [place] prior to 2020 AND post operatively 2020 [facility], no deficits 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, months of abtx---no antibiotics currently Surgical History Hx of cystoscopy w/ stent - 09/20/22 Hx of cardiac catheterization 05/2021 Hx of colonoscopy History of esophagogastroduodenoscopy (EGD) Hx of chest tube placement Hx of cholecystectomy History of coronary artery bypass graft CABG x 3 (PAEZ -LAD; AO-RCA; AO-OM1 w/ graphic SVG on 05/30/2021 Family History Other Heart disease Social History Smoking Status: Former smoker Tobacco Type: Cigarettes packs per day: 1; Cigarettes Per Day: quit ~ 30 yrs ago; Smoking End Date: 30 years ago; Second Hand Exposure: No; Do You Dip or Chew Tobacco: No; Hx Alcohol Use: No Hx Substance Use: No Preferred Language: Hungarian Communication Ability: Effective Visual Impairment: No Limitations Commercial Drone Pilot Required: No Beliefs That Will Affect Care: None Current Living Situation: Spouse Other Information That Helps Us Care for You: No Feels Safe at Home: Yes Safety Concerns: Feels Safe At This Time Assistive Devices: None Review of Systems Constitutional: no fever and no chills Respiratory: no cough and no dyspnea Cardiovascular: no chest pain Gastrointestinal: + diarrhea/loose stools and + melena; no abdominal pain, no bloating, no heartburn, no nausea, no coffee ground emesis, no hematemesis and n o constipation Psychiatric: no problem reported Physical Exam Constitutional: well developed Respiratory: normal respiratory effort Gastrointestinal (Abdomen): normal bowel sounds, soft, nontender, no hepatosplenomegaly Psychiatric: Orientation: alert and oriented x 3 Results & Data Vital Signs (Past 12 Hours) Vital Signs Temp Pulse Pulse Resp BP BP Pulse Ox 03/24/24 08:30 36.6 C 80 18 106/64 97 03/24/24 03:37 36.4 C L 87 18 100/63 95 03/24/24 00:17 75 18 98/63 L 99 03/23/24 23:50 36.2 C L 65 18 98/65 L 100 03/23/24 23:10 36.2 C L 74 18 103/66 96 03/23/24 23:05 36.2 C L 73 18 102/67 100 O2 Del Method O2 Flow Rate 03/24/24 08:30 Room Air 03/24/24 03:37 Room Air 03/24/24 00:17 03/23/24 23:50 Room Air 03/23/24 23:10 0 03/23/24 23:05 0 Laboratory Results Laboratory Results - last 48 hr 03/23/24 03/23/24 03/23/24 15:56 16:25 18:28 WBC 7.68 RBC 2.82 L Hgb 6.7 L* Hct 23.4 L MCV 83.0 MCH 23.8 L MCHC 28.6 L RDW Std Deviation 50.9 H RDW Coeff of Lencho 17.0 H Plt Count 168 MPV 11.4 Immature Gran % (Auto) 0.4 Neut % (Auto) 70.3 Lymph % (Auto) 14.6 Imperial % (Auto) 10.4 Eos % (Auto) 3.0 Baso % (Auto) 1.3 Neut # (Auto) 5.40 Lymph # (Auto) 1.12 L Imperial # (Auto) 0.80 H Eos # (Auto) 0.23 Baso # (Auto) 0.10 Immature Gran # (Auto) 0.03 Polychromasia 1+ Poikilocytosis Present Ovalocytes 1+ PT 13.1 H INR 1.2 H APTT 29 PTT Ratio 1.1 Sodium 132 L Potassium 4.4 Chloride 108 H Carbon Dioxide 16 L Anion Gap 8 BUN 71 H Creatinine 3.09 H Est Cr Clr Drug Dosing Not Reportable Est GFR ( Amer) 21.4 Est GFR (Non-Af Amer) 18.5 BUN/Creatinine Ratio 23.0 H Glucose 148 H POC Glucose Estimat Average Glucose Hemoglobin A1c Calcium 9.2 Magnesium Total Bilirubin 1.0 AST 15 ALT 14 Alkaline Phosphatase 92 Ammonia 14.0 L Total Protein 5.3 L Albumin 3.2 L Globulin 2.1 L Albumin/Globulin Ratio 1.5 Urine Color Urine Appearance Urine pH Ur Specific [place] Urine Protein Urine Glucose (UA) Urine Ketones Urine Blood Urine Nitrite Urine Bilirubin Urine Urobilinogen Ur Leukocyte Esterase Urine WBC (Auto) Urine RBC (Auto) U Hyaline Cast (Auto) U Epithel Cells (Auto) Urine Bacteria (Auto) Granular Casts Blood Type A Positive Antibody Screen NEGATIVE Crossmatch See Detail 03/23/24 03/23/24 03/24/24 20:32 23:04 02:51 WBC 5.11 RBC 3.34 L Hgb 8.7 L Hct 28.3 L MCV 84.7 MCH 26.0 MCHC 30.7 L RDW Std Deviation 47.9 H RDW Coeff of Lencho 15.7 H Plt Count 89 L MPV 11.7 Immature Gran % (Auto) 0.6 Neut % (Auto) 73.2 Lymph % (Auto) 11.5 Imperial % (Auto) 12.1 Eos % (Auto) 1.8 Baso % (Auto) 0.8 Neut # (Auto) 3.74 Lymph # (Auto) 0.59 L Imperial # (Auto) 0.62 H Eos # (Auto) 0.09 Baso # (Auto) 0.04 Immature Gran # (Auto) 0.03 Polychromasia Poikilocytosis Ovalocytes PT INR APTT PTT Ratio Sodium 134 L Potassium 4.7 Chloride 110 H Carbon Dioxide 18 L Anion Gap 6 BUN 73 H Creatinine 2.97 H Est Cr Clr Drug Dosing 20.8 Est GFR ( Amer) 22.5 Est GFR (Non-Af Amer) 19.4 BUN/Creatinine Ratio 24.6 H Glucose 141 H POC Glucose 167 H 164 H Estimat Average Glucose 137 Hemoglobin A1c 6.4 H Calcium 8.9 Magnesium 1.9 Total Bilirubin 2.7 H D AST 13 ALT 12 Alkaline Phosphatase 84 Ammonia Total Protein 4.8 L Albumin 2.9 L Globulin 1.9 L Albumin/Globulin Ratio 1.5 Urine Color Urine Appearance Urine pH Ur Specific [place] Urine Protein Urine Glucose (UA) Urine Ketones Urine Blood Urine Nitrite Urine Bilirubin Urine Urobilinogen Ur Leukocyte Esterase Urine WBC (Auto) Urine RBC (Auto) U Hyaline Cast (Auto) U Epithel Cells (Auto) Urine Bacteria (Auto) Granular Casts Blood Type Antibody Screen Crossmatch 03/24/24 03/24/24 03/24/24 04:48 11:06 12:08 WBC RBC Hgb Hct MCV MCH MCHC RDW Std Deviation RDW Coeff of Lencho Plt Count MPV Immature Gran % (Auto) Neut % (Auto) Lymph % (Auto) [place] % (Auto) Eos % (Auto) Baso % (Auto) Neut # (Auto) Lymph # (Auto) Imperial # (Auto) Eos # (Auto) Baso # (Auto) Immature Gran # (Auto) Polychromasia Poikilocytosis Ovalocytes PT INR APTT PTT Ratio Sodium Potassium Chloride Carbon Dioxide Anion Gap BUN Creatinine Est Cr Clr Drug Dosing Est GFR ( Amer) Est GFR (Non-Af Amer) BUN/Creatinine Ratio Glucose POC Glucose 169 H 148 H Estimat Average Glucose Hemoglobin A1c Calcium Magnesium Total Bilirubin AST ALT Alkaline Phosphatase Ammonia Total Protein Albumin Globulin Albumin/Globulin Ratio Urine Color Yellow Urine Appearance Clear Urine pH 5.5 Ur Specific [place] 1.018 Urine Protein Negative Urine Glucose (UA) Negative Urine Ketones Trace H Urine Blood Negative Urine Nitrite Negative Urine Bilirubin Negative Urine Urobilinogen Negative Ur Leukocyte Esterase 2+ H Urine WBC (Auto) 21-50 H Urine RBC (Auto) 0-2 U Hyaline Cast (Auto) 6-10 H U Epithel Cells (Auto) 0-2 Urine Bacteria (Auto) None Seen Granular Casts Present A Blood Type Antibody Screen Crossmatch PG Care Time/CCT Total # of Minutes Spent Total Time Spent with Patient: Total time spent is greater than 50% in coordination of care (as documented) at patient's floor/unit and/or counseling patient: Coding Level of Care Code 77477 INT INP/OBS CARE 375MIN Diagnoses Acute blood loss anemia D62
--- NOTE | 2024-03-24 11:06 | Nephrology Consultation ---
Date of Consultation March 24, 2024 Assessment & Plan (1) DELIA (acute kidney injury): Stage 2 DELIA on CKD3 w/ baseline creatinine 1.5-2. no obstruction on CT admission; radiolucencies may possibly be stones -- in any case not active. HRS is dx of exclusion; he may simply have ischemic ATN from acute anemia or other process. need urine studies to better evaluate. -await multiple urine studies already ordered -daily bmp -low threshold to check TTE if indicated -continue to hold lasix, aldactone -would give albumin x 24 hrs/3 doses in addition to 2 units pRBC he's had for fluid resuscitation Plan of care including albumin, awaiting urine labs, and consideration of TTE reviewed w/ Dr Franklin via TText; we are in agreement. (2) Generalized weakness: ? from acute on chronic anemia versus other process; low threshold to eval TTE (3) Cirrhosis of liver with ascites: on octreotide; hold on midodrine for now -f/u GI recs (4) CAD (coronary artery disease): w/ hx of ischemic [employer]; low threshold to repeat TTE if not improving clinically after transfusoin History of Present Illness Reason for Consultation: Dr Franklin Requesting Physician: HRS Attending Physician: Anusha Franklin MD History of Present Illness 78 y/o M whom I'm asked to see for HRS was admitted yesterday for acute GI bleeding in setting of liver cirrhosis w/ hx of esophageal varices after presenting with dark tarry stool for several weeks w/ increasing generalized weakness and a near fall. Presenting hgb was 6.7, presenting creatinine 3.1. PMH includes DM2 on insulin, HTN, hypothyroid, paroxysmal atrial fibrillation on Eliquis and 3 day weekly aspirin, CAD w/ hx of CABG and hx of past cardiomyopathy w/ improving EF (30% > 60%), stroke, liver cirrhosis w/ esophageal varices and s/p December paracentesis, hx L chylothorax s/p multiple thoracenteses s/p thoracic duct embolization, hypothyroid; also w/ hx stones needing Gu stent 09/2022 (80% uric acid, 20% ca ox); also w/ intermittent urinary retention. His baseline creatinine is 1.5-2 (quite labile); follows w/ Dr Meadows in CKD clinic; follows w/ Dr Young [facility] [place] urology. EGD 2023 w/ small esophageal varices w/o e/o bleeding. He takes lasix 20 mg daily and spironolactone 50 mg daily. He had 2 units pRBC since arrival last evening. creatinine this AM still 3; hgb up to 8.7; pt feels unchanged in terms of his generalized weakness. Slowly progressive generalized weakness for several weeks to the point where he couldn't get out of bed for a week prior to presentation, w/ increased runny stool and fecal incontinence after recently completing a year of amoxicillin, increased abd girth; does not think UOP down but does think is stream is smaller; no f/c, chest pain, palpitations, no cough, n/v, dysuria/urinary frequency or gross hematuria, dypsnea, cough, musculoskeletal pain. at bedside when I saw him this AM and helps w/ hx. Allergies Allergy/AdvReac Type Severity Reaction Status Date / Time Sulfa (Sulfonamide Allergy Unknown CHILDHOOD Verified 09/13/23 08:32 Antibiotics) ALLERGY--CAN'T REMEMBER tramadol AdvReac Severe SEVERE Verified 09/13/23 08:32 VOMITING omeprazole AdvReac Intermediate PER PT Verified 09/13/23 08:32 "DID THE OPPOSITE, MADE ME WORSE". Home Medications Medication Instructions Recorded Confirmed Type ascorbic acid (vitamin C) 500 mg 500 mg PO QAM 11/08/21 03/23/24 History tablet (Vitamin C) atorvastatin 40 mg tablet 40 mg PO QAM 11/08/21 03/23/24 History cholecalciferol (vitamin D3) 50 50 mcg PO QAM 11/08/21 03/23/24 History mcg (2,000 unit) capsule (Vitamin D3) dulaglutide 1.5 mg/0.5 mL 3 mg subcut WK 11/08/21 03/23/24 History subcutaneous pen injector (Trulicity) insulin glargine 100 unit/mL (3 38 unit subcut HS 11/08/21 03/23/24 History mL) subcutaneous pen (Lantus Solostar U-100 Insulin) levothyroxine 88 mcg tablet 88 mcg PO DAILYBB 11/08/21 03/23/24 History metoprolol succinate 100 mg 100 mg PO BID 11/08/21 03/23/24 History tablet,extended release 24 hr nitroglycerin 0.4 mg sublingual 0.4 mg sublingual DIRECTED PRN 11/08/21 03/23/24 History tablet (Nitrostat) Chest Pain ondansetron HCl 4 mg tablet 4 mg PO Q8H PRN Nausea 11/08/21 03/23/24 History aspirin 81 mg tablet,delayed 81 mg PO 3XWK 09/18/22 03/23/24 History release apixaban 5 mg tablet (Eliquis) 5 mg PO BID 09/19/22 03/23/24 History furosemide 20 mg tablet 20 mg PO QAM 10/04/22 03/23/24 History gabapentin 100 mg capsule 200 mg PO HS 03/23/24 03/23/24 History spironolactone 50 mg tablet 50 mg PO DAILY 03/23/24 03/23/24 History Patient History Medical History long-term (current) use of anticoagulants Osteoarthritis History of kidney stones stents placed and removed Stroke patient denies CKD (chronic kidney disease) stage 3, GFR 30-59 ml/min TIA (transient ischemic attack) in [place] prior to 2020 AND post operatively 2020 [facility], no deficits 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, months of abtx---no antibiotics currently Surgical History Hx of cystoscopy w/ stent - 09/20/22 Hx of cardiac catheterization 05/2021 Hx of colonoscopy History of esophagogastroduodenoscopy (EGD) Hx of chest tube placement Hx of cholecystectomy History of coronary artery bypass graft CABG x 3 (PAEZ -LAD; AO-RCA; AO-OM1 w/ graphic SVG on 05/30/2021 Family History Other Heart disease Social History Smoking Status: Former smoker Tobacco Type: Cigarettes packs per day: 1; Cigarettes Per Day: quit ~ 30 yrs ago; Second Hand Exposure: No; Do You Dip or Chew Tobacco: No; Hx Alcohol Use: No Hx Substance Use: No Preferred Language: Romansh Communication Ability: Effective Visual Impairment: No Limitations Customer Service Clerk Required: No Beliefs That Will Affect Care: None Current Living Situation: Spouse Feels Safe at Home: Yes Assistive Devices: None Review of Systems 2 Review of Systems: All systems reviewed & are unremarkable except as noted in HPI & below Physical Exam 2 Constitutional: well developed, + cachectic and cooperative (sitting in bed on RA); no acute distress ENMT: Mouth: + dry oral mucous membranes Respiratory: normal respiratory effort Auscultation: + diminished lung sounds Cardiovascular: Rate/Rhythm: regular rate and regular rhythm Extremities: + edema (1+ pedal and no peripheral edema) Gastrointestinal (Abdomen): Inspection/Auscultation: normal bowel sounds P ercussion/Palpation: abdomen soft; abdomen nontender Musculoskeletal: Extremities: strength 5/5 throughout Skin: no rashes, warm and dry Neurologic: nevarez, fluent speech, no tremor Results & Data Vital Signs (Past 12 Hours) Vital Signs Temp Pulse Pulse Resp BP BP Pulse Ox 03/24/24 08:30 36.6 C 80 18 106/64 97 03/24/24 03:37 36.4 C L 87 18 100/63 95 03/24/24 00:17 75 18 98/63 L 99 03/23/24 23:50 36.2 C L 65 18 98/65 L 100 03/23/24 23:10 36.2 C L 74 18 103/66 96 03/23/24 23:05 36.2 C L 73 18 102/67 100 O2 Del Method O2 Flow Rate 03/24/24 08:30 Room Air 03/24/24 03:37 Room Air 03/24/24 00:17 03/23/24 23:50 Room Air 03/23/24 23:10 0 03/23/24 23:05 0 Laboratory Results 03/24/24 02:51 03/24/24 02:[address] a/p yesterday Limited exam. There may be thickening of the villagomez of the descending colon, sigmoid colon and rectum. This may be due to under distention. Cannot exclude colitis. Diverticulosis Ascites. This has increased compared to previous exam Hepatosplenomegaly. There are possible bilateral renal cysts. (NOTE no hydronephrosis) TTE 09/2022 EF 55-60%
[2024-03-24 12:42] LABS: Appearance Urine Clear (Clear); Bacteria Urine Automated None Seen (None Seen); Bilirubin Urine Negative (Negative); Blood Urine Negative (Negative); Color Urine Yellow; Epithelial Cell Urine Auto 0-2 /hpf (0-2); Glucose Urine UA Negative (Negative); Granular Casts Urine Present /lpf (None Prsent); Ketones Urine Trace (Negative); Leukocyte Esterase Urine 2+ (Negative); Nitrite Urine Negative (Negative); Protein Urine Negative (Negative); RBC Urine Automated 0-2 /hpf (0-2); Specific Gravity Urine 1.018 (1.000-1.030); Urobilinogen Urine Negative (Negative); WBC Urine Automated 21-50 /hpf (0-5); pH Urine 5.5 (4.5-7.5)
[2024-03-24] MEDS: cefTRIAXone SODIUM 1,000 MG/50 ML BAG IV SCH (13:09)
--- NOTE | 2024-03-24 15:31 | GI REPORT ---
[facility] Patient: MASSIMO STONER : 1945 Sex at : Male Age: 78 Years Procedure: Upper GI endoscopy Date: 03/24/2024 Attending Physician: Hernandez Higgins MD Referring MD: Anusha Franklin Md Indications: - Suspected upper gastrointestinal bleeding Medications: - Monitored Anesthesia Care Complications: - No immediate complications. Procedure: - Prior to the procedure, a History and Physical was performed, and patient medications and allergies were reviewed. The patient's tolerance of previous anesthesia was also reviewed. The risks and benefits of the procedure and the sedation options and risks were discussed with the patient. All questions were answered, and informed consent was obtained. [Anticoagulant Agents] [Days Prior to Procedure]. [ASA Grade]. After reviewing the risks and benefits, the patient was deemed in satisfactory condition to undergo the procedure. - The egd scope was introduced through the mouth and advanced to the second part of the duodenum. - The upper GI endoscopy was accomplished without difficulty. - The patient tolerated the procedure well. Findings: - Post variceal banding scar was found in the lower third of the esophagus and in the middle third of the esophagus, [cm From Incisors]. No significant active varices or stigmata noted. - 2 small mucosal nodules were found in the proximal gastric body. Biopsies were taken with a cold forceps for histology. - The examined duodenum was normal. - Diffuse moderately congested mucosa was found in the gastric antrum and in the gastric body, consistent with portal gastropathy. Impression: - Scar in the lower third of the esophagus and in the middle third of the esophagus. - Mucosal nodules in the gastric body. Biopsied. - Normal examined duodenum. - Congestive gastropathy. - Normal examined duodenum. Recommendation: - Resume previous diet. - Patient has a contact number available for emergencies. The signs and symptoms of potential delayed complications were discussed with the patient. Return to normal activities tomorrow. Written discharge instructions were provided to the patient. Procedure Code(s): - 53570, Esophagogastroduodenoscopy, flexible, transoral; with biopsy, single or multiple Diagnosis Code(s): - K22.89, Other specified disease of esophagus - K31.89, Other diseases of stomach and duodenum CPT(R) - 2023 copyright [employer] [place] [employer]. All Rights Reserved. The CPT codes, CCI edits and ICD codes generated are intended as suggestions and were generated based on input data. These codes are preliminary and upon amusement park entertainer review may be revised to meet current compliance and payer requirements. The provider is responsible for the final determination of appropriate codes, and modifiers. Hernandez Higgins MD This document has been electronically signed. Note Initiated:03/24/2024 Note Completed:03/24/2024 3:30 PM \\[email or web address]\[id number].[email or web address]
--- NOTE | 2024-03-24 15:57 | Anesthesiology Progress Note ---
Date of Service March 24, 2024 Anesthesia Post Procedure Vital Signs Vital Signs: Temp Pulse Pulse Resp BP BP Pulse Ox 03/24/24 15:46 83 18 98/54 L 96 03/24/24 15:31 79 18 99/52 L 95 03/24/24 14:09 36.8 C 81 14 142/78 H 97 03/24/24 11:15 36.6 C 84 18 106/65 97 03/24/24 08:30 36.6 C 80 18 106/64 97 03/24/24 03:37 36.4 C L 87 18 100/63 95 03/24/24 00:17 75 18 98/63 L 99 03/23/24 23:50 36.2 C L 65 18 98/65 L 100 03/23/24 23:10 36.2 C L 74 18 103/66 96 03/23/24 23:05 36.2 C L 73 18 102/67 100 03/23/24 22:16 36.2 C L 76 18 99/58 L 96 03/23/24 22:03 36.2 C L 76 18 97/61 L 97 03/23/24 21:42 76 03/23/24 21:30 36.3 C L 85 17 94/56 L 99 03/23/24 20:42 36.3 C L 78 16 105/70 99 03/23/24 20:30 36.3 C L 78 17 105/70 99 03/23/24 20:24 76 03/23/24 19:30 36.3 C L 78 19 95/60 L 100 03/23/24 19:02 77 16 99/61 L 100 03/23/24 19:00 36.3 C L 77 12 99/61 L 100 03/23/24 18:45 77 18 98 03/23/24 18:44 35.7 C L 76 15 96/65 L 99 03/23/24 18:28 36.4 C L 75 18 99/59 L 99 03/23/24 17:02 74 O2 Del Method O2 Flow Rate 03/24/24 15:46 Room Air 03/24/24 15:31 Room Air 03/24/24 14:09 Room Air 03/24/24 11:15 Room Air 03/24/24 08:30 Room Air 03/24/24 03:37 Room Air 03/24/24 00:17 03/23/24 23:50 Room Air 03/23/24 23:10 0 03/23/24 23:05 0 03/23/24 22:16 0 03/23/24 22:03 0 03/23/24 21:42 03/23/24 21:30 03/23/24 20:42 Room Air 03/23/24 20:30 03/23/24 20:24 03/23/24 19:30 03/23/24 19:02 Room Air 03/23/24 19:00 03/23/24 18:45 03/23/24 18:44 03/23/24 18:28 03/23/24 17:02 Transfer of Care Handoff Completed per policy Notes Mental Status: alert / awake / arousable Patient Amnestic to Procedure: Yes Nausea / Vomiting: adequately controlled Pain: adequately controlled Airway Patency, RR, SpO2: stable & adequate BP & HR: stable & adequate Hydration State: stable & adequate Anesthetic Complications: no major complications apparent and Pt Satisfied with anesthetic care
[2024-03-24] MEDS: ALBUMIN 25% 25 GM/100 ML VIAL IV SCH (16:39)
[2024-03-24] MEDS: PROPOFOL IV EMULSION 10 MG/ML 20 ML VIAL IV ONE (16:56)
[2024-03-24] MEDS: PHENYLEPHRINE 100MCG/ML 10ML SYR IV ONE (16:56)
[2024-03-24] MEDS: LIDOCAINE 2% 2 ML VIAL/AMP(20MG/ML) INFIL ONE ×2 (16:56)
[2024-03-24] MEDS: ONDANSETRON INJ 2 MG/ML 2 ML VIAL ONE (16:56)
[2024-03-24] MEDS: GLYCOPYRROLATE 0.2 MG/ML VIAL ONE (16:56)
[2024-03-25] MEDS ORDERED: Nursing to Pharmacy Communication SCH (01:00)
--- NOTE | 2024-03-25 06:21 | Electrocardiogram Report ---
Test Reason : Blood Pressure : */* mmHG Vent. Rate : 77 BPM Atrial Rate : 77 BPM P-R Int : 212 ms QRS Dur : 128 ms QT Int : 434 ms P-R-T Axes : -2 -47 -7 degrees QTcB Int : 491 ms Sinus rhythm with 1st degree A-V block Indeterminate axis Right bundle branch block Abnormal ECG When compared with ECG of 25-Aug-2022 15:11, Nonspecific T wave abnormality, worse in Inferior leads Nonspecific T wave abnormality now evident in Anterior leads Confirmed by Willie Triana ([id number]) on 03/25/2024 6:21:21 AM Referred By: Confirmed By: Willie Triana
[2024-03-25 06:26] LABS: Hematocrit (blood only) 25.2 % (42.0-52.0); Hemoglobin 7.8 g/dl (14.0-18.0); Mean Corpuscular Hemoglobin 25.9 pg (25.0-34.0); Mean Corpuscular Volume 83.7 fL (80.0-100.0); Mean Platelet Volume 10.3 fL (9.4-12.4); Platelet Count 65 K/uL (130-400); RDW Coefficient of Variation 16.2 % (11.5-14.5); RDW Standard Deviation 49.2 fL (36.4-46.3); Red Blood Count 3.01 M/uL (4.70-6.10); White Blood Count 3.88 K/ul (4.8-10.8)
[2024-03-25 06:43] LABS: Albumin Globulin Ratio 2.1 (0.9-2); Albumin Level 3.4 gm/dl (3.4-5.0); BUN Creatinine Ratio 23.7 (10-20); Bilirubin,Total 1.4 mg/dl (0.2-1.0); Calcium 8.9 mg/dl (8.6-10.3); Creatinine Clr Calc Pharmacy 21.6 ml/min; Est GFR (African American) 23.4 ml/min; Est GFR (Non-African American) 20.2 ml/min; Globulin 1.6 gm/dl (2.5-4.0); Magnesium 1.9 mg/dl (1.7-2.4); Phosphorus 3.8 mg/dl (2.5-4.9); Potassium 4.3 mmol/L (3.5-5.1)
[2024-03-25 06:47] LABS: INR 1.3 (0.9-1.1); Prothrombin Time 13.4 Seconds (9.0-12.0)
--- NOTE | 2024-03-25 06:49 | Electrocardiogram Report ---
Test Reason : Blood Pressure : */* mmHG Vent. Rate : 77 BPM Atrial Rate : 77 BPM P-R Int : 252 ms QRS Dur : 118 ms QT Int : 418 ms P-R-T Axes : 54 -13 15 degrees QTcB Int : 473 ms Sinus rhythm with 1st degree A-V block with occasional Premature ventricular complexes Low voltage QRS Right bundle branch block Abnormal ECG When compared with ECG of 23-Mar-2024 15:41, (unconfirmed) Premature ventricular complexes are now Present Nonspecific T wave abnormality, improved in Inferior leads Confirmed by Willie Triana ([id number]) on 03/25/2024 6:48:57 AM Referred By: REFERRED SELF Confirmed By: Willie Triana
[2024-03-25 06:58] LABS: Thyroid Stimulating Hormone 2.035 uIu/ml (0.300-4.500)
[2024-03-25 07:32] LABS: Immature Retic Fraction 30.7 % (2.3-15.9); Reticulated Hemoglobin 19.8 pg (28.2-36.6)
[2024-03-25 08:04] LABS: Ferritin 16.5 ng/ml (8-388)
[2024-03-25 08:42] LABS: Folate (Folic Acid),Ser orPlas > 22.30 ng/ml (>5.38)
[2024-03-25 08:43] LABS: Vitamin B12 192 pg/ml (180-914)
[2024-03-25] MEDS: INSULIN ASPART PER UNIT CHARGE SC SCH (08:48)
--- NOTE | 2024-03-25 09:49 | Gastroenterology Progress Note ---
Date of Service March 25, 2024 Assessment & Plan (1) Acute on chronic anemia: Plan: -EGD without significant acute concerns though patient is anticoagulated and has a history of portal gastropathy. No active variceal bleeding concerns. -Continue to monitor H/H -Monitor for GI bleeding, particularly when anticoagulation is restarted -Protonix 40 mg BID upon discharge (2) Cirrhosis of liver with ascites: Plan: -Patient appears to be arranged for a paracentesis today per his primary hospitalist team -Nephrology following, diuretics are on hold; underlying concern with this patient is the possibility HRS -He will need close follow-up with Dr. Ya his account executive key accounts upon discharge or sooner hepatology evaluation in the event he would significantly decompensate -2 gm Na restriction -Avoid NSAIDs & hepatotoxins -Limit Tylenol to <2000 mg daily in q 6 hr divided doses -Trend PT/INR, CMP for MELD calculation daily MELD currently 23 points with a 19.6% estimated 3 month mortality rate Admission and Anticipated Discharge Date Admission Date: March 23, 2024 Supervising Physician Co-Signing Physician Notes I saw and examined this patient with our nurse practitioner and agree with her assessment and plan. Clinically stable no active bleeding. No asterixis. Abdomen softer post paracentesis. Endoscopy revealed no significant varices no significant active bleeding. Pathology pending on gastric biopsies. Continue 2 g sodium diet. Monitor renal function. Will continue to avoid diuretics as per nephrology. Subjective Patient is a 78 yo male with anemia, cirrhosis,and melena found to have portal gastropathy on EGD without other alarming features. H/H 7.8/25 today. Stools are documented as mg, not black/dark. He denies other concerns at present this AM. Review of Systems Constitutional: no fever and no chills Respiratory: no cough and no dyspnea Cardiovascular: no chest pain Gastrointestinal: no abdominal pain and no melena Physical Exam Constitutional: no acute distress Respiratory: normal respiratory effort Gastrointestinal (Abdomen): Percussion/Palpation: + ascites Musculoskeletal: Head/Neck/Chest: normocephalic Psychiatric: Orientation: alert and oriented x 3 Results & Data Results & Data Vital Signs (Past 12 Hours) Vital Signs Temp Pulse Pulse Resp BP Pulse Ox O2 Del Method 03/25/24 07:09 36.4 C L 76 18 105/61 96 Room Air 03/25/24 03:25 36.5 C 79 18 111/60 96 Room Air 03/24/24 23:33 71 03/24/24 23:33 Room Air 03/24/24 23:00 36.6 C 71 16 98 Room Air 03/24/24 22:09 36.6 C 83 16 110/63 96 Room Air PG Care Time/CCT Total # of Minutes Spent Total Time Spent with Patient: Total time spent is greater than 50% in coordination of care (as documented) at patient's floor/unit and/or counseling patient: Coding Level of Care Code 80629 SUB INP/OBS CARE 3/50MIN Diagnoses Acute on chronic anemia D64.9 Cirrhosis of liver with ascites K74.60; R18.8
--- NOTE | 2024-03-25 11:11 | Nephrology Progress Note ---
Date of Service March 25, 2024 Assessment & Plan (1) DELIA (acute kidney injury): Plan: slightly improved Stage 2 DELIA on CKD3 w/ baseline creatinine 1.5-2. no obstruction on CT admission; radiolucencies may possibly be stones -- in any case not active. HRS is dx of exclusion though can certainly be secondary/background dx; he may simply have ischemic ATN from acute anemia or other process. urine studies in [employer] yesterday and on review in [facility] notable for granular casts, 2+ leukocyte esterase and no bacteria >> ie, c/w no infection but nonspecific inflammation possibly an interstitial nephritis or an ATN. unfortunately this is best diagnosed w/ renal bx (for which he is not a candidate w/ his plts). -daily bmp -low threshold to check TTE if weakness not improving; hospitalist aware/considering -continue to hold lasix, aldactone -continue w/ albumin infusions 1 gm /kg / day x 48 hrs, finishes tomorrow -f/u SBP studies after today's paracentesis (2) Generalized weakness: Plan: ? 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 unchanged global weakness Review of Systems 2 Review of Systems: All systems reviewed & are unremarkable except as noted in Subjective Physical Exam 2 Constitutional: well developed, + cachectic and cooperative ( in bed on RA); no acute distress ENMT: Mouth: + dry oral mucous membranes Respiratory: normal respiratory effort Auscultation: + diminished lung sounds Cardiovascular: Rate/Rhythm: regular rate and regular rhythm Extremities: + edema (trace pedal and no peripheral edema) Gastrointestinal (Abdomen): Inspection/Auscultation: normal bowel sounds P ercussion/Palpation: abdomen soft; abdomen nontender Musculoskeletal: Extremities: strength 5/5 throughout Skin: no rashes, warm and dry Results & Data Vital Signs (Past 12 Hours) Vital Signs Temp Pulse Pulse Resp BP Pulse Ox O2 Del Method 03/25/24 10:56 36.5 C 77 16 104/57 L 96 Room Air 03/25/24 07:09 36.4 C L 76 18 105/61 96 Room Air 03/25/24 03:25 36.5 C 79 18 111/60 96 Room Air 03/24/24 23:33 71 03/24/24 23:33 Room Air Laboratory Results 03/25/24 06:08 03/25/24 06:08
--- NOTE | 2024-03-25 11:15 | Hospitalist Progress Note ---
Date of Service March 25, 2024 Assessment & Plan (1) GIB (gastrointestinal bleeding): (2) Acute blood loss anemia: (3) Cirrhosis of liver with ascites: (4) Esophageal varices: (5) Diabetes mellitus: (6) CAD (coronary artery disease): (7) Atrial fibrillation: (8) Hypertension: Plan Mr. Francois 78-year-old male has complex significant past medical history of CAD status post CABG x3 (PAEZ to LAD, AO to RCA, AO to OM1 05/2021), ischemic cardiomyopathy LVEF 30% postop CABG, PAF postoperative CABG, history of multiple small CVA involving left anterior frontal lobe and left posterior temporal lobe following surgery, RBBB, HTN, HLD, T2DM, hypothyroidism, mild aortic sclerosis, mild mitral valve leaflet prolapse with mild MR, history of chronic use of Xarelto in setting of possible CVA, history of moderate size left pleural effusion post CABG, status post thoracentesis with recurrent left pleural effusion requiring multiple hospitalizations status post thoracic duct embolization 09/06/[address] Jean, CKD stage III who is admitted for concerns of weakness and found to be anemic and with decompensated cirrhosis marked by ascites. Patient reported melena and has known varices. Hgb was 6.7 on admission and is n ow s/p 2 UPRBC. GI to performed EGD this afternoon. #Acute on chronic anemia in setting of blood loss, c/f GIB #Melena #Hx of esophageal varices #Portal Gastropathy s/p banding 09/2023 s/p 2 U prbc on admission for hgb 6.7, up to 8 .7 -Continue on protonix and ocretide -Trend CBC q 12 hours -Transfuse < 8.0 2/2 noted ICM history Holding Eliquis/asa until hgb stabilizes #Cirrhosis decompensated - MELD-Na: 25 on admission - Last EGD 09/2023 large varices banded x 3 and portal HTN gastropathy - PSE: Denies h/o HE, no evidence of HE on exam, ctm ammonia 14 on admission - Ascites: hold home Lasix:[place] 20:50 -Consult IR for paracentesis tomorrow - SBP: c/w Rocephin f/u cell count - EV: d/c octreotide gtt Trnasition to PPI IV BID and CTX x5 d (/) - HRS: 1.0 up to 3.09, albumin challenge 48 hours - Daily CMP + INR to calculate MELD; low Na diet MELD: 23 - GI consult #Acute on Chronic CKD 3 baseline cr 1.7-1.8 CT a/p to eval GIB/DELIA/ascites hold lasix and aldactone albumin challenge Nephrology following Repeat Cr in am Treating with albumin q8h for total 48 hours #HFrecEF iso ischemic cardiomyopathy LVEF 30% -->55-60% 2022 #CAD status post CABG x3 (PAEZ to LAD, AO to RCA, AO to OM1 05/2021) * Multivessel CAD including mid RCA 90% lesion with mild diffuse disease, 80% occlusion of the proximal LAD with heavily calcified lesion, and 100% 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 Daily weights. Pending ECHO read continue statin #Post op afib #Hx of CVA Holding eliquis and ASA 2/2 GIB until Hgb stabilzes monitor on tele #T2DM, insulin dependent last a1c August 8.4, a1c 6.4 iso acute anemia Lantus/novolog per protocol. Acute stress reaction son concern pt is struggling mentally given his state of health, he has never seen psych or had therapy but encourages we follow this closely #Hypothyroidism continue synthroid DVT ppx: SCDS for now FULL CODE PCP: Dori Dispo: admit to PCU, pt likely to need rehab, PT/OT once medically appropriate Pt nikhil Francois would like provider updates if able. His number is [phone]. Admission and Anticipated Discharge Date Admission Date: March 23, 2024 Subjective NAEO Reports diarrhea, but denies any blood, however states he cannot "see it" Denies nausea, vomiting, or other acute concerns out side of general fatigue. Declines morris Reports worrying about eating or drinking because if he has to urinate he has an episode of diarrhea and it concerns him Physical Exam Constitutional: WD/WN, vitals as above Respiratory: normal respiratory effort, lungs clear to auscultation Cardiovascular: RRR, no murmur, no edema Gastrointestinal (Abdomen): protuberant but soft abdomen Results & Data Results & Data Vital Signs (Past 12 Hours) Vital Signs Temp Pulse Pulse Resp BP Pulse Ox O2 Del Method 03/25/24 10:56 36.5 C 77 16 104/57 L 96 Room Air 03/25/24 07:09 36.4 C L 76 18 105/61 96 Room Air 03/25/24 03:25 36.5 C 79 18 111/60 96 Room Air 03/24/24 23:33 71 03/24/24 23:33 Room Air Laboratory Results Short CBC 03/25/24 Range/Units 06:08 WBC 3.88 L (4.8-10.8) K/ul Hgb 7.8 L (14.0-18.0) g/dl Hct 25.2 L (42.0-52.0) % Plt Count 65 L (130-400) K/uL BMP 03/25/24 06:08 Sodium 134 L Potassium 4.3 Chloride 111 H Carbon Dioxide 16 L BUN 68 H Creatinine 2.87 H Glucose 159 H Calcium 8.9 Liver Function 03/25/24 Range/Units 06:08 Total Bilirubin 1.4 H (0.2-1.0) mg/dl AST 10 L (13-39) U/L ALT 10 (7-52) U/L Alkaline Phosphatase 68 (34-104) U/L Albumin 3.4 (3.4-5.0) gm/dl Urine 03/24/24 Range/Units 11:06 Urine Color Yellow Urine Appearance Clear (Clear) Urine pH 5.5 (4.5-7.5) Ur Specific [place] 1.018 (1.000-1.030) Urine Protein Negative (Negative) Urine Glucose (UA) Negative (Negative) Medications Administered Home Medications Medication Instructions Recorded Confirmed Last Taken ascorbic acid (vitamin C) 500 mg 500 mg PO QAM 11/08/21 03/23/24 09/12/23 tablet (Vitamin C) atorvastatin 40 mg tablet 40 mg PO QAM 11/08/21 03/23/24 09/12/23 cholecalciferol (vitamin D3) 50 50 mcg PO QAM 11/08/21 03/23/24 09/12/23 mcg (2,000 unit) capsule (Vitamin D3) dulaglutide 1.5 mg/0.5 mL 3 mg subcut WK 11/08/21 03/23/24 09/05/23 subcutaneous pen injector (Trulicity) insulin glargine 100 unit/mL (3 38 unit subcut HS 11/08/21 03/23/24 09/12/23 22:00 mL) subcutaneous pen (Lantus 18 units Solostar U-100 Insulin) levothyroxine 88 mcg tablet 88 mcg PO DAILYBB 11/08/21 03/23/24 09/13/23 04:00 metoprolol succinate 100 mg 100 mg PO BID 11/08/21 03/23/24 09/12/23 tablet,extended release 24 hr nitroglycerin 0.4 mg sublingual 0.4 mg sublingual DIRECTED PRN 11/08/21 03/23/24 Unknown tablet (Nitrostat) Chest Pain ondansetron HCl 4 mg tablet 4 mg PO Q8H PRN Nausea 11/08/21 03/23/24 6 Months Ago ~03/15/23 aspirin 81 mg tablet,delayed 81 mg PO 3XWK 09/18/22 03/23/24 09/11/23 release apixaban 5 mg tablet (Eliquis) 5 mg PO BID 09/19/22 03/23/24 09/11/23 09:00 furosemide 20 mg tablet 20 mg PO QAM 10/04/22 03/23/24 09/12/23 gabapentin 100 mg capsule 200 mg PO HS 03/23/24 03/23/24 Unknown spironolactone 50 mg tablet 50 mg PO DAILY 03/23/24 03/23/24 Unknown Active Medications Generic Name Dose Route Start Last Admin Trade Name Alin PRN Reason Stop Dose Admin Atorvastatin Calcium 40 mg 03/24/24 09:00 03/25/24 08:43 Atorvastatin 40 Mg Tab PO 04/23/24 08:59 40 mg QAM CARO Administration Pantoprazole Sodium 40 mg/ 100 mls @ 20 mls/hr 03/23/24 17:00 03/25/24 08:42 Dextrose IV 04/22/24 16:59 8 mg/hr Q5H CARO 20 mls/hr Administration 8 MG/HR Ceftriaxone Sodium 1,000 mg in 50 mls @ 100 mls/hr 03/24/24 12:45 03/24/24 19:28 Rocephin IV 03/28/24 12:44 Infused Q24H CARO Infusion Albumin Human 25 gm in 100 mls @ 50 mls/hr 03/24/24 15:15 03/25/24 10:11 Albumin 25% IV 03/25/24 15:14 Infused Q8H CARO Infusion Insulin Aspart 0 units 03/25/24 07:30 03/25/24 08:48 Insulin Aspart Per Unit Charge SC 04/24/24 07:29 2 units ACHS CARO Administration Insulin Glargine 0 - 30 units 03/23/24 21:00 03/24/24 20:59 Lantus Per Unit Charge SQ 04/22/24 20:59 30 units HS CARO Administration Levothyroxine Sodium 88 mcg 03/24/24 06:30 03/25/24 05:32 Levothyroxine Sodium 88 Mcg Tablet PO 04/23/24 06:29 88 mcg DAILYBB CARO Administration Metoprolol Succinate 100 mg 03/23/24 21:00 03/25/24 08:43 Metoprolol Succ 50mg Ext Rel Tab PO 04/22/24 20:59 100 mg BID CARO Administration
[2024-03-25] MEDS: PANTOprazole 40 MG in SYRINGE 0 ML IV SCH (12:38)
[2024-03-25 13:16] LABS: Appearance Urine Clear (Clear); Bacteria Urine Automated None Seen (None Seen); Bilirubin Urine Negative (Negative); Blood Urine Negative (Negative); Color Urine Yellow; Epithelial Cell Urine Auto 0-2 /hpf (0-2); Glucose Urine UA Negative (Negative); Ketones Urine Negative (Negative); Leukocyte Esterase Urine 2+ (Negative); Nitrite Urine Negative (Negative); Protein Urine Trace (Negative); RBC Urine Automated 0-2 /hpf (0-2); Specific Gravity Urine 1.015 (1.000-1.030); Urobilinogen Urine Negative (Negative); WBC Urine Automated >50 /hpf (0-5); pH Urine 5.5 (4.5-7.5)
[2024-03-25 13:37] LABS: Appearance Peritoneal Fluid Slightly Hazy; Color Peritoneal Fluid Pale Yellow; RBC Peritoneal Fluid Auto < 2000 /uL; WBC Peritoneal Fluid Auto 121 /ul (0-300)
[2024-03-25 13:39] LABS: Creatinine Urine Random 95.6 mg/dl; Protein Creatinine Ratio Urine 0.2 (0-0.2); Total Protein Urine Random 23.5 mg/dl (0-11.9)
[2024-03-25 14:00] LABS: Lymphocytes, Fluid 21 %; Mono,Macrophage,Mesothelial 58 %; Neutrophils, Fluid 21 %
--- NOTE | 2024-03-25 14:08 | Ultrasound Report ---
Ultrasound guided paracentesis. Clinical indication: ascites. Procedure: Procedure and risks were explained. Informed consent was obtained from the patient. A fin al timeout was completed. Sonographic examination revealed a moderate amount of ascites. A pocket wa s identified in the left lower quadrant. The abdomen was prepped and draped in sterile fashion. 1% li docaine was utilized for skin anesthesia. Utilizing ultrasound guidance, a 5 [place] safety centesis c atheter was introduced into the pocket of ascites and 2900 ml of yellow fluid drained with 1 L sent t o the lab. Ultrasound images were obtained. The catheter was removed and Band-Aid applied. The patie nt tolerated the procedure well. Vital signs will be monitored prior to discharge. IMPRESSION: Ultrasound guided paracentesis as described above. Performed, dictated, and signed by Fabián Clayton PA-C; to be co-signed by Dr. Ever Dalton. Electronically signed by: Ever Dalton M.D. 03/25/2024 2:10 PM
[2024-03-25 14:20] LABS: Albumin Peritoneal Fluid < 1.5 gm/dl; Amylase Peritoneal Fluid 10 U/L; LDH Peritoneal Fluid 31 U/L; Total Protein Peritoneal Fluid < 3.0 gm/dl
[2024-03-25 16:24] LABS: BUN Creatinine Ratio 22.5 (10-20); Calcium 8.8 mg/dl (8.6-10.3); Creatinine Clr Calc Pharmacy 21.8 ml/min; Est GFR (African American) 23.7 ml/min; Est GFR (Non-African American) 20.5 ml/min
[2024-03-26 06:40] LABS: Hematocrit (blood only) 25.3 % (42.0-52.0); Hemoglobin 7.9 g/dl (14.0-18.0); Mean Corpuscular Hemoglobin 26.5 pg (25.0-34.0); Mean Corpuscular Hgb Conc 31.2 g/dL (32.0-36.0); Mean Corpuscular Volume 84.9 fL (80.0-100.0); Mean Platelet Volume 10.4 fL (9.4-12.4); Platelet Count 67 K/uL (130-400); RDW Coefficient of Variation 15.9 % (11.5-14.5); RDW Standard Deviation 48.4 fL (36.4-46.3); Red Blood Count 2.98 M/uL (4.70-6.10); White Blood Count 2.86 K/ul (4.8-10.8)
[2024-03-26 06:47] LABS: Albumin Globulin Ratio 2.3 (0.9-2); Albumin Level 3.5 gm/dl (3.4-5.0); BUN Creatinine Ratio 20.9 (10-20); Bilirubin,Total 1.1 mg/dl (0.2-1.0); Est GFR (African American) 26.6 ml/min; Globulin 1.5 gm/dl (2.5-4.0); Magnesium 1.9 mg/dl (1.7-2.4); Potassium 3.9 mmol/L (3.5-5.1)
[2024-03-26 07:11] LABS: INR 1.3 (0.9-1.1); Prothrombin Time 13.4 Seconds (9.0-12.0)
--- NOTE | 2024-03-26 08:05 | Gastroenterology Progress Note ---
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 If possible would consider switching to a selective beta-simona such as nadolol which has been shown to reduce bleeding from portal gastropathy and portal hypertension. If he could switch from metoprolol would start at 40 mg daily he wanted to titrate his heart rate to between 60 and 65 for reduce it by 20% from baseline. (2) Cirrhosis of liver with ascites: Plan: Paracentesis fluid negative for infection. Limited by renal function to add diuretics at this point. Will continue 2 g sodium diet. Admission and Anticipated Discharge Date Admission Date: March 23, 2024 Subjective No acute distress denies shortness of breath chest pain or abdominal pain. Physical Exam Physical Exam: No acute distress Respiratory rate regular Cardiac rhythm regular Abdomen soft nontender, moderate ascites Results & Data Results & Data Vital Signs (Past 12 Hours) Vital Signs Temp Pulse Pulse Resp BP Pulse Ox O2 Del Method 03/26/24 07:18 36.5 C 71 20 101/56 L 98 Room Air 03/26/24 02:57 36.5 C 64 16 101/59 L 99 Room Air 03/25/24 23:04 36.5 C 76 16 103/59 L 100 Room Air 03/25/24 22:05 73 Laboratory Results Laboratory Results - last 48 hr 03/23/24 03/24/24 03/24/24 16:25 02:51 11:06 WBC RBC Hgb Hct MCV MCH MCHC RDW Std Deviation RDW Coeff of Lencho Plt Count MPV Reticulocyte % (Auto) Reticulocyte # Immature Retic Fraction Retic Hgb Content PT INR Sodium Potassium Chloride Carbon Dioxide Anion Gap BUN Creatinine Est Cr Clr Drug Dosing Est GFR ( Amer) Est GFR (Non-Af Amer) BUN/Creatinine Ratio Glucose POC Glucose Estimat Average Glucose 137 Hemoglobin A1c 6.4 H Calcium Phosphorus Magnesium Iron TIBC Unsaturated IBC Transferrin % Sat Ferritin Total Bilirubin AST ALT Alkaline Phosphatase Total Protein Albumin Globulin Albumin/Globulin Ratio Vitamin B12 Folate TSH Urine Color Yellow Urine Appearance Clear Urine pH 5.5 Ur Specific [place] 1.018 Urine Protein Negative Urine Glucose (UA) Negative Urine Ketones Trace H Urine Blood Negative Urine Nitrite Negative Urine Bilirubin Negative Urine Urobilinogen Negative Ur Leukocyte Esterase 2+ H Urine WBC (Auto) 21-50 H Urine RBC (Auto) 0-2 U Hyaline Cast (Auto) 6-10 H U Epithel Cells (Auto) 0-2 Urine Bacteria (Auto) None Seen Granular Casts Present A Urine Yeast Ur Random Creatinine U Random Total Protein Protein/Creatinin Ratio Urine Sodium Urine Potassium Urine Chloride Fluid Neutrophils % Fluid Lymphocytes % Fluid Meso/Macro/Clarke % Fluid Comment Peritoneal Color Peritoneal Appearance Peritoneal WBC (Auto) Peritoneal RBC (Auto) Peritoneal Tot Protein Peritoneal Albumin Peritoneal LDH Peritoneal Amylase Crossmatch See Detail 03/24/24 03/24/24 03/24/24 12:08 16:22 20:33 WBC RBC Hgb Hct MCV MCH MCHC RDW Std Deviation RDW Coeff of Lencho Plt Count MPV Reticulocyte % (Auto) Reticulocyte # Immature Retic Fraction Retic Hgb Content PT INR Sodium Potassium Chloride Carbon Dioxide Anion Gap BUN Creatinine Est Cr Clr Drug Dosing Est GFR ( Amer) Est GFR (Non-Af Amer) BUN/Creatinine Ratio Glucose POC Glucose 148 H 146 H 223 H Estimat Average Glucose Hemoglobin A1c Calcium Phosphorus Magnesium Iron TIBC Unsaturated IBC Transferrin % Sat Ferritin Total Bilirubin AST ALT Alkaline Phosphatase Total Protein Albumin Globulin Albumin/Globulin Ratio Vitamin B12 Folate TSH Urine Color Urine Appearance Urine pH Ur Specific [place] Urine Protein Urine Glucose (UA) Urine Ketones Urine Blood Urine Nitrite Urine Bilirubin Urine Urobilinogen Ur Leukocyte Esterase Urine WBC (Auto) Urine RBC (Auto) U Hyaline Cast (Auto) U Epithel Cells (Auto) Urine Bacteria (Auto) Granular Casts Urine Yeast Ur Random Creatinine U Random Total Protein Protein/Creatinin Ratio Urine Sodium Urine Potassium Urine Chloride Fluid Neutrophils % Fluid Lymphocytes % Fluid Meso/Macro/Clarke % Fluid Comment Peritoneal Color Peritoneal Appearance Peritoneal WBC (Auto) Peritoneal RBC (Auto) Peritoneal Tot Protein Peritoneal Albumin Peritoneal LDH Peritoneal Amylase Crossmatch 03/25/24 03/25/24 03/25/24 06:08 07:03 11:07 WBC 3.88 L RBC 3.01 L Hgb 7.8 L Hct 25.2 L MCV 83.7 MCH 25.9 MCHC 31.0 L RDW Std Deviation 49.2 H RDW Coeff of Lencho 16.2 H Plt Count 65 L MPV 10.3 Reticulocyte % (Auto) 2.20 H Reticulocyte # 0.060 Immature Retic Fraction 30.7 H Retic Hgb Content 19.8 L PT 13.4 H INR 1.3 H Sodium 134 L Potassium 4.3 Chloride 111 H Carbon Dioxide 16 L Anion Gap 7 BUN 68 H Creatinine 2.87 H Est Cr Clr Drug Dosing 21.6 Est GFR ( Amer) 23.4 Est GFR (Non-Af Amer) 20.2 BUN/Creatinine Ratio 23.7 H Glucose 159 H POC Glucose 179 H 156 H Estimat Average Glucose Hemoglobin A1c Calcium 8.9 Phosphorus 3.8 Magnesium 1.9 Iron 10 L TIBC 283 Unsaturated IBC 273 Transferrin % Sat 4 L Ferritin 16.5 Total Bilirubin 1.4 H AST 10 L ALT 10 Alkaline Phosphatase 68 Total Protein 5.0 L Albumin 3.4 Globulin 1.6 L Albumin/Globulin Ratio 2.1 H Vitamin B12 192 Folate > 22.30 TSH 2.035 Urine Color Urine Appearance Urine pH Ur Specific [place] Urine Protein Urine Glucose (UA) Urine Ketones Urine Blood Urine Nitrite Urine Bilirubin Urine Urobilinogen Ur Leukocyte Esterase Urine WBC (Auto) Urine RBC (Auto) U Hyaline Cast (Auto) U Epithel Cells (Auto) Urine Bacteria (Auto) Granular Casts Urine Yeast Ur Random Creatinine U Random Total Protein Protein/Creatinin Ratio Urine Sodium Urine Potassium Urine Chloride Fluid Neutrophils % Fluid Lymphocytes % Fluid Meso/Macro/Clarke % Fluid Comment Peritoneal Color Peritoneal Appearance Peritoneal WBC (Auto) Peritoneal RBC (Auto) Peritoneal Tot Protein Peritoneal Albumin Peritoneal LDH Peritoneal Amylase Crossmatch 03/25/24 03/25/24 03/25/24 12:55 15:35 16:11 WBC RBC Hgb Hct MCV MCH MCHC RDW Std Deviation RDW Coeff of Lencho Plt Count MPV Reticulocyte % (Auto) Reticulocyte # Immature Retic Fraction Retic Hgb Content PT INR Sodium 135 L Potassium 4.0 Chloride 111 H Carbon Dioxide 17 L Anion Gap 7 BUN 64 H Creatinine 2.84 H Est Cr Clr Drug Dosing 21.8 Est GFR ( Amer) 23.7 Est GFR (Non-Af Amer) 20.5 BUN/Creatinine Ratio 22.5 H Glucose 194 H POC Glucose 206 H Estimat Average Glucose Hemoglobin A1c Calcium 8.8 Phosphorus Magnesium Iron TIBC Unsaturated IBC Transferrin % Sat Ferritin Total Bilirubin AST ALT Alkaline Phosphatase Total Protein Albumin Globulin Albumin/Globulin Ratio Vitamin B12 Folate TSH Urine Color Yellow Urine Appearance Clear Urine pH 5.5 Ur Specific [place] 1.015 Urine Protein Trace H Urine Glucose (UA) Negative Urine Ketones Negative Urine Blood Negative Urine Nitrite Negative Urine Bilirubin Negative Urine Urobilinogen Negative Ur Leukocyte Esterase 2+ H Urine WBC (Auto) >50 H Urine RBC (Auto) 0-2 U Hyaline Cast (Auto) 3-5 H U Epithel Cells (Auto) 0-2 Urine Bacteria (Auto) None Seen Granular Casts Urine Yeast Present A Ur Random Creatinine 95.6 U Random Total Protein 23.5 H Protein/Creatinin Ratio 0.2 Urine Sodium 50 Urine Potassium 22.0 Urine Chloride 50 Fluid Neutrophils % Fluid Lymphocytes % Fluid Meso/Macro/Clarke % Fluid Comment Peritoneal Color Peritoneal Appearance Peritoneal WBC (Auto) Peritoneal RBC (Auto) Peritoneal Tot Protein Peritoneal Albumin Peritoneal LDH Peritoneal Amylase Crossmatch 03/25/24 03/25/24 03/26/24 20:21 Unknown 05:57 WBC 2.86 L RBC 2.98 L Hgb 7.9 L Hct 25.3 L MCV 84.9 MCH 26.5 MCHC 31.2 L RDW Std Deviation 48.4 H RDW Coeff of Lencho 15.9 H Plt Count 67 L MPV 10.4 Reticulocyte % (Auto) Reticulocyte # Immature Retic Fraction Retic Hgb Content PT 13.4 H INR 1.3 H Sodium 135 L Potassium 3.9 Chloride 112 H Carbon Dioxide 18 L Anion Gap 5 BUN 54 H Creatinine 2.58 H Est Cr Clr Drug Dosing 24.0 Est GFR ( Amer) 26.6 Est GFR (Non-Af Amer) 23.0 BUN/Creatinine Ratio 20.9 H Glucose 109 H POC Glucose 172 H Estimat Average Glucose Hemoglobin A1c Calcium 9.0 Phosphorus 3.0 Magnesium 1.9 Iron TIBC Unsaturated IBC Transferrin % Sat Ferritin Total Bilirubin 1.1 H AST 9 L ALT 7 Alkaline Phosphatase 60 Total Protein 5.0 L Albumin 3.5 Globulin 1.5 L Albumin/Globulin Ratio 2.3 H Vitamin B12 Folate TSH Urine Color Urine Appearance Urine pH Ur Specific [place] Urine Protein Urine Glucose (UA) Urine Ketones Urine Blood Urine Nitrite Urine Bilirubin Urine Urobilinogen Ur Leukocyte Esterase Urine WBC (Auto) Urine RBC (Auto) U Hyaline Cast (Auto) U Epithel Cells (Auto) Urine Bacteria (Auto) Granular Casts Urine Yeast Ur Random Creatinine U Random Total Protein Protein/Creatinin Ratio Urine Sodium Urine Potassium Urine Chloride Fluid Neutrophils % 21 Fluid Lymphocytes % 21 Fluid Meso/Macro/Clarke % 58 Fluid Comment Peritoneal Color Pale Yellow Peritoneal Appearance Slightly Hazy Peritoneal WBC (Auto) 121 Peritoneal RBC (Auto) < 2000 Peritoneal Tot Protein < 3.0 Peritoneal Albumin < 1.5 Peritoneal LDH 31 Peritoneal Amylase 10 Crossmatch 03/26/24 07:20 WBC RBC Hgb Hct MCV MCH MCHC RDW Std Deviation RDW Coeff of Lencho Plt Count MPV Reticulocyte % (Auto) Reticulocyte # Immature Retic Fraction Retic Hgb Content PT INR Sodium Potassium Chloride Carbon Dioxide Anion Gap BUN Creatinine Est Cr Clr Drug Dosing Est GFR ( Amer) Est GFR (Non-Af Amer) BUN/Creatinine Ratio Glucose POC Glucose 118 H Estimat Average Glucose Hemoglobin A1c Calcium Phosphorus Magnesium Iron TIBC Unsaturated IBC Transferrin % Sat Ferritin Total Bilirubin AST ALT Alkaline Phosphatase Total Protein Albumin Globulin Albumin/Globulin Ratio Vitamin B12 Folate TSH Urine Color Urine Appearance Urine pH Ur Specific [place] Urine Protein Urine Glucose (UA) Urine Ketones Urine Blood Urine Nitrite Urine Bilirubin Urine Urobilinogen Ur Leukocyte Esterase Urine WBC (Auto) Urine RBC (Auto) U Hyaline Cast (Auto) U Epithel Cells (Auto) Urine Bacteria (Auto) Granular Casts Urine Yeast Ur Random Creatinine U Random Total Protein Protein/Creatinin Ratio Urine Sodium Urine Potassium Urine Chloride Fluid Neutrophils % Fluid Lymphocytes % Fluid Meso/Macro/[place]ar[place] % Fluid Comment Peritoneal Color Peritoneal Appearance Peritoneal WBC (Auto) Peritoneal RBC (Auto) Peritoneal Tot Protein Peritoneal Albumin Peritoneal LDH Peritoneal Amylase Crossmatch PG Care Time/CCT Total # of Minutes Spent Total Time Spent with Patient: Total time spent is greater than 50% in coordination of care (as documented) at patient's floor/unit and/or counseling patient: Coding Level of Care Code 37650 SUB INP/OBS CARE 3/50MIN Diagnoses Acute on chronic anemia D64.9 Cirrhosis of liver with ascites K74.60; R18.8
--- NOTE | 2024-03-26 14:11 | Nephrology Progress Note ---
Date of Service March 26, 2024 Assessment & Plan Admission and Anticipated Discharge Date Admission Date: March 23, 2024 Subjective Assessment & Plan (1) DELIA (acute kidney injury): Plan: slightly improved Stage 2 DELIA on CKD3 w/ baseline creatinine 1.5-2. creatinine is down to 2.5 which is still higher than baseline but somewhat better than her admission. no obstruction on CT admission. etiology of DELIA is either ATN or hepatorenal syndrome. No specific treatment for ATN. He did receive some octreotide as well as albumin but not now. blood pressure is reasonable for somebody with advanced cirrhosis and this is without midodrine. daily CMP and CBC low threshold to check TTE if weakness not improving; hospitalist aware/considering continue to hold lasix, aldactone he never has edema and all the fluid collection is ascites and in this type of situation the diuretics do not help a whole lot. as an outpatient he was on Lasix and Aldactone but continue to hold for now (2) Generalized weakness: Plan: most likely secondary to failure to thrive from advanced liver cirrhosis as well as contribution ? from acute on chronic anemia. 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 still has significant weakness but feels she is slightly stronger and is also somewhat eager to get discharged Review of Systems Review of Systems: All systems reviewed & are unremarkable except as noted in Subjective Physical Exam Constitutional: well developed, + cachectic and cooperative ( in bed on RA); no acute distress ENMT: Mouth: + dry oral mucous membranes Respiratory: normal respiratory effort Auscultation: + diminished lung sounds Cardiovascular: Rate/Rhythm: regular rate and regular rhythm Extremities: + edema (trace pedal and no peripheral edema) Gastrointestinal (Abdomen): Inspection/Auscultation: normal bowel sounds Percussion/Palpation: abdomen soft; abdomen nontender Musculoskeletal: Extremities: strength 5/5 throughout Skin: no rashes, warm and dry Results & Data Vital Signs (Past 12 Hours) Vital Signs Temp Pulse Pulse Resp BP Pulse Ox O2 Del Method 03/26/24 12:16 36.3 C L 67 20 102/56 L 99 Room Air 03/26/24 08:00 68 03/26/24 07:18 36.5 C 71 20 101/56 L 98 Room Air 03/26/24 07:15 Room Air 03/26/24 02:57 36.5 C 64 16 101/59 L 99 Room Air
--- NOTE | 2024-03-26 17:40 | Hospitalist Progress Note ---
Date of Service March 26, 2024 Assessment & Plan (1) Cirrhosis of liver with ascites: (2) Acute on chronic anemia: (3) Generalized weakness: (4) DELIA (acute kidney injury): Plan: (1) GIB (gastrointestinal bleeding): (2) Acute blood loss anemia: (3) Cirrhosis of liver with ascites: (4) Esophageal varices: (5) Diabetes mellitus: (6) CAD (coronary artery disease): (7) Atrial fibrillation: (8) Hypertension: Plan Mr. Francois 78-year-old male has complex significant past medical history of CAD status post CABG x3 (PAEZ to LAD, AO to RCA, AO to OM1 05/2021), ischemic cardiomyopathy LVEF 30% postop CABG, PAF postoperative CABG, history of multiple small CVA involving left anterior frontal lobe and left posterior temporal lobe following surgery, RBBB, HTN, HLD, T2DM, hypothyroidism, mild aortic sclerosis, mild mitral valve leaflet prolapse with mild MR, history of chronic use of Xarelto in setting of possible CVA, history of moderate size left pleural effusion post CABG, status post thoracentesis with recurrent left pleural effusion requiring multiple hospitalizations status post thoracic duct embolization 09/06/[address] Jean, CKD stage III who is admitted for concerns of weakness and found to be anemic and with decompensated cirrhosis marked by ascites. Patient reported melena and has known varices. Hgb was 6.7 on admission and is now s/p 2 UPRBC. GI to performed EGD this afternoon. #Acute on chronic anemia in setting of blood loss, c/f GIB #Melena #Hx of esophageal varices #Portal Gastropathy s/p banding 09/2023 s/p 2 U prbc on admission for hgb 6.7, up to 8 .7 -Continue on protonix and ocretide -Trend CBC q 12 hours -Transfuse < 8.0 2/2 noted ICM history Holding Eliquis/asa until hgb stabilizes 03/26 Hemoglobin stable Change metoprolol to nadolol Continue Protonix #Cirrhosis decompensated - MELD-Na: 25 on admission - Last EGD 09/2023 large varices banded x 3 and portal HTN gastropathy - PSE: Denies h/o HE, no evidence of HE on exam, ctm ammonia 14 on admission - Ascites: hold home Lasix:Sumerco 20:50 -Consult IR for paracentesis tomorrow - SBP: c/w Rocephin f/u cell count - EV: d/c octreotide gtt Trnasition to PPI IV BID and CTX x5 d (08/13) - HRS: 1.0 up to 3.09, albumin challenge 48 hours - Daily CMP + INR to calculate MELD; low Na diet MELD: 23 - GI consult 03/26 Seems to be stable overall Status post paracentesis yesterday with removal of 3 L of fluid Continue to monitor closely GI on board, appreciate recommendations #Acute on Chronic CKD 3 baseline cr 1.7-1.8 CT a/p to eval GIB/DELIA/ascites hold lasix and aldactone albumin challenge Nephrology following Repeat Cr in am Treating with albumin q8h for total 48 hours crea 2.8 --> 2.5 #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 Daily weights. Pending ECHO read continue statin #Post op afib #Hx of CVA Holding eliquis and ASA 2/2 GIB until Hgb stabilizes monitor on tele #T2DM, insulin dependent last a1c August 16.4, a1c 6.4 iso acute anemia Lantus/novolog per protocol Acute stress reaction son concern pt is struggling mentally given his state of health, he has never seen psych or had therapy but encourages we follow this closely #Hypothyroidism continue synthroid DVT ppx: SCDS for now FULL CODE PCP: Dori Dispopt likely to need rehab, PT/OT once medically appropriate Admission and Anticipated Discharge Date Admission Date: March 23, 2024 Subjective Follow-up for decompensated liver cirrhosis, anemia, hepatorenal syndrome, etc. Seen resting in bed, comfortable, watching TV, in good spirits Very pleasant gentleman States he continues to feel improved gradually every day Still feels on the tired and weak side No abdominal pain, nausea vomiting, requesting if he can have food today Positive BMs yesterday, no melena No other new symptoms Review of Systems Review of Systems: all noted and negative except for above Physical Exam Physical Exam: General- oriented x 3, not in distress, speaks in sentences with no effort or accessory muscle use Eyes- anicteric Neck- no JVD Lungs- clear breath sounds bilaterally, no rales/wheezes Heart- normal rate, regular rhythm; no murmurs Abdomen- normal bowel sounds, nondistended, soft, nontender Positive very mild distention but no tenderness Extremities- no pretibial edema, no calf tenderness Neuro- alert, oriented x 3; no gross focal neurologic deficits Skin- warm & dry Results & Data Results & Data Vital Signs (Past 12 Hours) Vital Signs Temp Pulse Pulse Resp BP Pulse Ox O2 Del Method 03/26/24 14:42 36.5 C 66 18 94/55 L 98 Room Air 03/26/24 13:00 78 03/26/24 13:00 69 03/26/24 12:16 36.3 C L 67 20 102/56 L 99 Room Air 03/26/24 08:00 68 03/26/24 07:18 36.5 C 71 20 101/56 L 98 Room Air 03/26/24 07:15 Room Air all noted and reviewed including below
[2024-03-27] MEDS: nadoloL 40 MG TAB PO SCH (08:35)
[2024-03-27 08:49] LABS: Basophils # (auto) 0.07 K/uL (0.00-0.20); Basophils % (auto) 1.7 %; Eosinophils # (auto) 0.17 K/uL (0.00-0.50); Eosinophils % (auto) 4.1 %; Hemoglobin 8.4 g/dl (14.0-18.0); Immature Granulocytes # (auto) 0.02 K/uL (0.01-0.20); Immature Granulocytes % (auto) 0.5 %; Lymphocytes # (auto) 0.56 K/uL (1.20-3.40); Lymphocytes % (auto) 13.5 %; Mean Corpuscular Hgb Conc 31.1 g/dL (32.0-36.0); Mean Corpuscular Volume 83.6 fL (80.0-100.0); Monocytes # (auto) 0.46 K/uL (0.11-0.59); Monocytes % (auto) 11.1 %; Neutrophils # (auto) 2.86 K/uL (1.40-6.50); Neutrophils % (auto) 69.1 %; Platelet Count 77 K/uL (130-400); RDW Coefficient of Variation 16.3 % (11.5-14.5); RDW Standard Deviation 48.7 fL (36.4-46.3); Red Blood Count 3.23 M/uL (4.70-6.10); White Blood Count 4.14 K/ul (4.8-10.8)
[2024-03-27 08:58] LABS: Albumin Level 3.5 gm/dl (3.4-5.0); Bilirubin Direct 0.4 mg/dl (0-0.2); Bilirubin,Total 1.1 mg/dl (0.2-1.0); Calcium 8.9 mg/dl (8.6-10.3); Creatinine Clr Calc Pharmacy 27.4 ml/min; Est GFR (African American) 31.3 ml/min; Potassium 3.9 mmol/L (3.5-5.1); Total Protein 5.1 gm/dl (6.0-8.3)
[2024-03-27 09:05] LABS: INR 1.2 (0.9-1.1); Prothrombin Time 12.9 Seconds (9.0-12.0)
--- NOTE | 2024-03-27 15:11 | Nephrology Progress Note ---
Date of Service March 27, 2024 Assessment & Plan Admission and Anticipated Discharge Date Admission Date: March 23, 2024 Subjective Assessment & Plan (1) ELZBIETA (acute kidney injury): Plan: slightly improved Stage 2 ELZBIETA on CKD3 w/ baseline creatinine 1.5-2. creatinine is down to 2.2 which is still higher than baseline but better than on admission. no obstruction on CT admission. etiology of ELZBIETA is either ATN or hepatorenal syndrome. No specific treatment for ATN. He did receive some octreotide as well as albumin but not now. blood pressure is reasonable for somebody with advanced cirrhosis and this is without midodrine. daily CMP and CBC continue to hold lasix, aldactone he never has edema and all the fluid collection is ascites and in this type of situation the diuretics do not help a whole lot. as an outpatient he was on Lasix and Aldactone but continue to hold for now. maybe restart from Sunday. he may benefit more with being on Scheduled Paracentesis either weekly or q2 week. Elzbieta is slowly getting better--creat down trending but not back to baseline (2) Generalized weakness: Plan: most likely secondary to failure to thrive from advanced liver cirrhosis as well as contribution ? from acute on chronic anemia. (3) Cirrhosis of liver with ascites: the primary problem which is causing all the other issues Plan: he may benefit more with being on Scheduled Paracentesis either weekly or q2 week. Subjective has lot of ascites and abd Discomfort. still has significant weakness but feels she is slightly stronger and is also somewhat eager to get discharged Review of Systems Review of Systems: All systems reviewed & are unremarkable except as noted in Subjective Physical Exam Constitutional: well developed, + cachectic and cooperative ( in bed on RA); no acute distress ENMT: Mouth: + dry oral mucous membranes Respiratory: normal respiratory effort Auscultation: + diminished lung sounds Cardiovascular: Rate/Rhythm: regular rate and regular rhythm Extremities: + edema (trace pedal and no peripheral edema) Gastrointestinal (Abdomen): Inspection/Auscultation: normal bowel sounds Percussion/Palpation: abdomen soft; abdomen nontender Musculoskeletal: Extremities: strength 5/5 throughout Skin: no rashes, warm and dry Results & Data Vital Signs (Past 12 Hours) Vital Signs Temp Pulse Pulse Resp BP Pulse Ox O2 Del Method 03/27/24 13:00 74 03/27/24 11:48 36.5 C 60 18 94/58 L 97 Room Air 03/27/24 08:00 Room Air 03/27/24 07:06 36.4 C L 69 18 96/58 L 98 Room Air 03/27/24 06:35 70
--- NOTE | 2024-03-27 17:30 | Hospitalist Progress Note ---
Date of Service March 27, 2024 Assessment & Plan (1) Cirrhosis of liver with ascites: (2) Acute on chronic anemia: (3) Generalized weakness: (4) DELIA (acute kidney injury): Plan: (1) GIB (gastrointestinal bleeding): (2) Acute blood loss anemia: (3) Cirrhosis of liver with ascites: (4) Esophageal varices: (5) Diabetes mellitus: (6) CAD (coronary artery disease): (7) Atrial fibrillation: (8) Hypertension: Plan Mr. Francois 78-year-old male has complex significant past medical history of CAD status post CABG x3 (PAEZ to LAD, AO to RCA, AO to OM1 05/2021), ischemic cardiomyopathy LVEF 30% postop CABG, PAF postoperative CABG, history of multiple small CVA involving left anterior frontal lobe and left posterior temporal lobe following surgery, RBBB, HTN, HLD, T2DM, hypothyroidism, mild aortic sclerosis, mild mitral valve leaflet prolapse with mild MR, history of chronic use of Xarelto in setting of possible CVA, history of moderate size left pleural effusion post CABG, status post thoracentesis with recurrent left pleural effusion requiring multiple hospitalizations status post thoracic duct embolization 09/06/[address] Jean, CKD stage III who is admitted for concerns of weakness and found to be anemic and with decompensated cirrhosis marked by ascites. Patient reported melena and has known varices. Hgb was 6.7 on admission and is now s/p 2 UPRBC. GI to performed EGD this afternoon. #Acute on chronic anemia in setting of blood loss, c/f GIB #Melena #Hx of esophageal varices #Portal Gastropathy s/p banding 09/2023 s/p 2 U prbc on admission for hgb 6.7, up to 8 .7 -Continue on protonix and ocretide -Trend CBC q 12 hours -Transfuse < 8.0 / noted ICM history Holding Eliquis/asa until hgb stabilizes 03/26 Hemoglobin stable Change metoprolol to nadolol Continue Protonix 03/27 Hg stable monitor closely on Nadolol check Orthostatic VS #Cirrhosis decompensated - MELD-Na: 25 on admission - Last EGD 09/2023 large varices banded x 3 and portal HTN gastropathy - PSE: Denies h/o HE, no evidence of HE on exam, ctm ammonia 14 on admission - Ascites: hold home Lasix:[place] 20:50 -Consult IR for paracentesis tomorrow - SBP: c/w Rocephin f/u cell count - EV: d/c octreotide gtt Trnasition to PPI IV BID and CTX x5 d (08/13) - HRS: 1.0 up to 3.09, albumin challenge 48 hours - Daily CMP + INR to calculate MELD; low Na diet MELD: 23 - GI consult 03/26 Seems to be stable overall Status post paracentesis yesterday with removal of 3 L of fluid Continue to monitor closely GI on board, appreciate recommendations 03/27 stable overall #Acute on Chronic CKD 3 baseline cr 1.7-1.8 CT a/p to eval GIB/DELIA/ascites hold lasix and aldactone albumin challenge Nephrology following Repeat Cr in am Treating with albumin q8h for total 48 hours crea 2.8 --> 2.5 03/27 crea 2.3 per Nephro, hold off diuretics until crea further improves #HFrecEF iso ischemic cardiomyopathy LVEF 30% -->55-60% 2022 #CAD status post CABG x3 (PAEZ to LAD, AO to RCA, AO to OM1 05/2021) * Multivessel CAD including mid RCA 90% lesion with mild diffuse disease, 80% occlusion of the proximal LAD with heavily calcified lesion, and 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 Daily weights. Pending ECHO read continue statin #Post op afib #Hx of CVA Holding eliquis and ASA 2/2 GIB until Hgb stabilizes and crea further improves monitor on tele #T2DM, insulin dependent last a1c August 8.4, a1c 6.4 iso acute anemia Lantus/novolog per protocol Acute stress reaction son concern pt is struggling mentally given his state of health, he has never seen psych or had therapy but encourages we follow this closely #Hypothyroidism continue synthroid DVT ppx: SCDS for now FULL CODE PCP: Mainali Dispo pt likely to need rehab, PT/OT once crea further improves Admission and Anticipated Discharge Date Admission Date: March 23, 2024 Subjective ff up for liver cirrhosis decompensation, etc seen resting in bed, comfortable feels fine overall no abdominal pain, nausea, dyspnea some lightheadedness when ambulating to the bathroom no other symptoms Review of Systems Review of Systems: all noted and negative except for above Physical Exam Physical Exam: General- oriented x 3, not in distress, speaks in sentences with no effort or accessory muscle use Eyes- anicteric Neck- no JVD Lungs- clear breath sounds bilaterally, no rales/wheezes Heart- normal rate, regular rhythm; no murmurs Abdomen- normal bowel sounds, nondistended, soft, nontender Extremities- no pretibial edema, no calf tenderness Neuro- alert, oriented x 3; no gross focal neurologic deficits Skin- warm & dry Results & Data Results & Data Vital Signs (Past 12 Hours) Vital Signs Temp Pulse Pulse Resp BP Pulse Ox O2 Del Method 03/27/24 15:39 36.9 C 65 19 103/63 96 Room Air 03/27/24 13:00 74 03/27/24 11:48 36.5 C 60 18 94/58 L 97 Room Air 03/27/24 08:00 Room Air 03/27/24 07:06 36.4 C L 69 18 96/58 L 98 Room Air 03/27/24 06:35 70 all noted and reviewed including below
[2024-03-28 07:45] LABS: Basophils # (auto) 0.07 K/uL (0.00-0.20); Basophils % (auto) 1.8 %; Eosinophils # (auto) 0.14 K/uL (0.00-0.50); Eosinophils % (auto) 3.6 %; Hematocrit (blood only) 25.6 % (42.0-52.0); Immature Granulocytes # (auto) 0.02 K/uL (0.01-0.20); Immature Granulocytes % (auto) 0.5 %; Lymphocytes # (auto) 0.65 K/uL (1.20-3.40); Lymphocytes % (auto) 16.5 %; Mean Corpuscular Hgb Conc 31.3 g/dL (32.0-36.0); Mean Corpuscular Volume 83.1 fL (80.0-100.0); Mean Platelet Volume 10.9 fL (9.4-12.4); Monocytes # (auto) 0.53 K/uL (0.11-0.59); Monocytes % (auto) 13.5 %; Neutrophils # (auto) 2.52 K/uL (1.40-6.50); Neutrophils % (auto) 64.1 %; Platelet Count 69 K/uL (130-400); RDW Coefficient of Variation 16.6 % (11.5-14.5); RDW Standard Deviation 49.5 fL (36.4-46.3); Red Blood Count 3.08 M/uL (4.70-6.10); White Blood Count 3.93 K/ul (4.8-10.8)
[2024-03-28 07:53] LABS: BUN Creatinine Ratio 17.6 (10-20); Calcium 8.6 mg/dl (8.6-10.3); Creatinine Clr Calc Pharmacy 26.6 ml/min; Est GFR (African American) 30.1 ml/min; Potassium 3.9 mmol/L (3.5-5.1)
--- NOTE | 2024-03-28 13:12 | Nephrology Progress Note ---
Date of Service March 28, 2024 Assessment & Plan Admission and Anticipated Discharge Date Admission Date: March 23, 2024 Subjective Assessment & Plan (1) DELIA (acute kidney injury): Plan: slightly improved Stage 2 DELIA on CKD3 w/ baseline creatinine 1.5-2. creatinine is down to 2.2 which is still higher than baseline but better than on admission. no obstruction on CT admission. etiology of DELIA is either ATN or hepatorenal syndrome. No specific treatment for ATN. He did receive some octreotide as well as albumin but not now. blood pressure is reasonable for somebody with advanced cirrhosis and this is without midodrine. daily CMP and CBC continue to hold lasix, aldactone. However Creat has got slightly worse from yesterday and not improving further. he is likely settling at a higher baseline creatinine signifying worsening MELD score related with worsening liver status. he never has edema and all the fluid collection is ascites and in this type of situation the diuretics do not help a whole lot. As an outpatient he was on Lasix and Aldactone but continue to hold for now. maybe restart in few days he may benefit more with being on Scheduled Paracentesis either weekly or q2 week. (2) Generalized weakness: Plan: most likely secondary to failure to thrive from advanced liver cirrhosis as well as contribution ? from acute on chronic anemia. (3) Cirrhosis of liver with ascites: the primary problem which is causing all the other issues Plan: he may benefit more with being on Scheduled Paracentesis either weekly or q2 week. Subjective still has ascites but the belly is not very distended and he does not have significant discomfort. still has significant weakness but feels she is slightly stronger and is also somewhat eager to get discharged but it appears he is going to a senior care facility probably next week Review of Systems Review of Systems: All systems reviewed & are unremarkable except as noted in Subjective Physical Exam Constitutional: well developed, + cachectic and cooperative ( in bed on RA); no acute distress ENMT: Mouth: + dry oral mucous membranes Respiratory: normal respiratory effort Auscultation: + diminished lung sounds Cardiovascular: Rate/Rhythm: regular rate and regular rhythm Extremities: + edema (trace pedal and no peripheral edema) Gastrointestinal (Abdomen): Inspection/Auscultation: normal bowel sounds Percussion/Palpation: abdomen soft; abdomen nontender Musculoskeletal: Extremities: strength 5/5 throughout Skin: no rashes, warm and dry Results & Data Vital Signs (Past 12 Hours) Vital Signs Temp Pulse Resp BP Pulse Ox O2 Del Method 03/28/24 10:32 36.5 C 69 18 97/61 L 94 Room Air 03/28/24 07:12 36.4 C L 74 18 98/59 L 97 Room Air 03/28/24 04:36 36.5 C 63 16 100/63 99 Room Air
--- NOTE | 2024-03-28 15:54 | Hospitalist Progress Note ---
Date of Service March 28, 2024 Assessment & Plan (1) Cirrhosis of liver with ascites: Plan: Plan Mr. Francois 78-year-old male has complex significant past medical history of CAD status post CABG x3 (PAEZ to LAD, AO to RCA, AO to OM1 05/2021), ischemic cardiomyopathy LVEF 30% postop CABG, PAF postoperative CABG, history of multiple small CVA involving left anterior frontal lobe and left posterior temporal lobe following surgery, RBBB, HTN, HLD, T2DM, hypothyroidism, mild aortic sclerosis, mild mitral valve leaflet prolapse with mild MR, history of chronic use of Xarelto in setting of possible CVA, history of moderate size left pleural effusion post CABG, status post thoracentesis with recurrent left pleural effusion requiring multiple hospitalizations status post thoracic duct embolization 09/06/[address] Jean, CKD stage III who is admitted for concerns of weakness and found to be anemic and with decompensated cirrhosis marked by ascites. Patient reported melena and has known varices. Hgb was 6.7 on admission and is now s/p 2 UPRBC. GI to performed EGD this afternoon. #Acute on chronic anemia in setting of blood loss, c/f GIB #Melena #Hx of esophageal varices #Portal Gastropathy s/p banding 09/2023 s/p 2 U prbc on admission for hgb 6.7, up to 8 .7 -Continue on protonix and ocretide -Trend CBC q 12 hours -Transfuse < 8.0 /2 noted ICM history Holding Eliquis/asa until hgb stabilizes 03/26 Hemoglobin stable Change metoprolol to nadolol Continue Protonix 03/27 Hg stable monitor closely on Nadolol check Orthostatic VS 03/28 Tolerating nadolol Hemoglobin stable Monitor orthostatic vital signs #Cirrhosis decompensated - MELD-Na: 25 on admission - Last EGD 09/2023 large varices banded x 3 and portal HTN gastropathy - PSE: Denies h/o HE, no evidence of HE on exam, ctm ammonia 14 on admission - Ascites: hold home Lasix:Fabio 20:50 -Consult IR for paracentesis tomorrow - SBP: c/w Rocephin f/u cell count - EV: d/c octreotide gtt Trnasition to PPI IV BID and CTX x5 d (2/) - HRS: 1.0 up to 3.09, albumin challenge 48 hours - Daily CMP + INR to calculate MELD; low Na diet MELD: 23 - GI consult 03/26 Seems to be stable overall Status post paracentesis yesterday with removal of 3 L of fluid Continue to monitor closely GI on board, appreciate recommendations 03/28 stable overall #Acute on Chronic CKD 3 baseline cr 1.7-1.8 CT a/p to eval GIB/DELIA/ascites hold lasix and aldactone albumin challenge Nephrology following Repeat Cr in am Treating with albumin q8h for total 48 hours crea 2.8 --> 2.5 03/27 crea 2.3 per Nephro, hold off diuretics until crea further improves 03/28 Creatinine remaining at 2.3 Possible new baseline Diuretics on hold #HFrecEF iso ischemic cardiomyopathy LVEF 30% -->55-60% 2022 #CAD status post CABG x3 (PAEZ to LAD, AO to RCA, AO to OM1 05/2021) * Multivessel CAD including mid RCA 90% lesion with mild diffuse disease, 80% occlusion of the proximal LAD with heavily calcified lesion, and 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 Daily weights. Pending ECHO read continue statin #Post op afib #Hx of CVA Holding eliquis and ASA 2/2 GIB until Hgb stabilizes and crea further improves monitor on tele #T2DM, insulin dependent last a1c August 16.4, a1c 6.4 iso acute anemia Lantus/novolog per protocol Acute stress reaction son concern pt is struggling mentally given his state of health, he has never seen psych or had therapy but encourages we follow this closely #Hypothyroidism continue synthroid DVT ppx: SCDS for now FULL CODE PCP: Dori Dispo pt likely to need rehab, PT/OT once crea further improves (2) Acute on chronic anemia: (3) Generalized weakness: (4) DELIA (acute kidney injury): (5) Symptomatic anemia: (6) Acute GI bleeding: (7) Acute blood loss anemia: Admission and Anticipated Discharge Date Admission Date: March 23, 2024 Subjective Follow-up for decompensated liver cirrhosis, etc. Seen resting in bed, comfortable, good spirits States he feels fine overall Denies abdominal pain, nausea, vomiting No dizziness, shortness of breath No other new symptoms today Review of Systems Review of Systems: all noted and negative except for above Physical Exam Physical Exam: General- oriented x 3, not in distress, speaks in sentences with no effort or accessory muscle use Eyes- anicteric Neck- no JVD Lungs- clear breath sounds bilaterally,No crackles or wheezing Heart- normal rate, regular rhythm; no murmurs Abdomen- normal bowel sounds, nondistended, soft, nontender Extremities- no pretibial edema, no calf tenderness Neuro- alert, oriented x 3; no gross focal neurologic deficits Skin- warm & dry Results & Data Results & Data Vital Signs (Past 12 Hours) Vital Signs Temp Pulse Resp BP Pulse Ox O2 Del Method 03/28/24 15:08 36.3 C L 72 18 99/58 L 99 Room Air 03/28/24 10:32 36.5 C 69 18 97/61 L 94 Room Air 03/28/24 07:12 36.4 C L 74 18 98/59 L 97 Room Air 03/28/24 04:36 36.5 C 63 16 100/63 99 Room Air all noted and reviewed including below
[2024-03-29 06:10] LABS: BUN Creatinine Ratio 18.1 (10-20); Calcium 8.9 mg/dl (8.6-10.3); Creatinine Clr Calc Pharmacy 27.3 ml/min; Est GFR (African American) 31.1 ml/min; Est GFR (Non-African American) 26.8 ml/min; Potassium 3.8 mmol/L (3.5-5.1)
--- NOTE | 2024-03-29 18:15 | Hospitalist Progress Note ---
Date of Service March 29, 2024 Assessment & Plan (1) Cirrhosis of liver with ascites: Plan: Plan Mr. Francois 78-year-old male has complex significant past medical history of CAD status post CABG x3 (PAEZ to LAD, AO to RCA, AO to OM1 05/2021), ischemic cardiomyopathy LVEF 30% postop CABG, PAF postoperative CABG, history of multiple small CVA involving left anterior frontal lobe and left posterior temporal lobe following surgery, RBBB, HTN, HLD, T2DM, hypothyroidism, mild aortic sclerosis, mild mitral valve leaflet prolapse with mild MR, history of chronic use of Xarelto in setting of possible CVA, history of moderate size left pleural effusion post CABG, status post thoracentesis with recurrent left pleural effusion requiring multiple hospitalizations status post thoracic duct embolization 09/06/[address] Jean, CKD stage III who is admitted for concerns of weakness and found to be anemic and with decompensated cirrhosis marked by ascites. Patient reported melena and has known varices. Hgb was 6.7 on admission and is now s/p 2 UPRBC. GI to performed EGD this afternoon. #Acute on chronic anemia in setting of blood loss, c/f GIB #Melena #Hx of esophageal varices #Portal Gastropathy s/p banding 09/2023 s/p 2 U prbc on admission for hgb 6.7, up to 8 .7 -Continue on protonix and ocretide -Trend CBC q 12 hours -Transfuse < 8.0 / noted ICM history Holding Eliquis/asa until hgb stabilizes 03/26 Hemoglobin stable Change metoprolol to nadolol Continue Protonix 03/27 Hg stable monitor closely on Nadolol check Orthostatic VS 03/28 Tolerating nadolol Hemoglobin stable Monitor orthostatic vital signs 03/29 Remains stable overall #Cirrhosis decompensated - MELD-Na: 25 on admission - Last EGD 09/2023 large varices banded x 3 and portal HTN gastropathy - PSE: Denies h/o HE, no evidence of HE on exam, ctm ammonia 14 on admission - Ascites: hold home Lasix:Fabio 20:50 -Consult IR for paracentesis tomorrow - SBP: c/w Rocephin f/u cell count - EV: d/c octreotide gtt Trnasition to PPI IV BID and CTX x5 d (08/13) - HRS: 1.0 up to 3.09, albumin challenge 48 hours - Daily CMP + INR to calculate MELD; low Na diet MELD: 23 - GI consult 03/26 Seems to be stable overall Status post paracentesis yesterday with removal of 3 L of fluid Continue to monitor closely GI on board, appreciate recommendations 03/28 stable overall #Acute on Chronic CKD 3 baseline cr 1.7-1.8 CT a/p to eval GIB/DELIA/ascites hold lasix and aldactone albumin challenge Nephrology following Repeat Cr in am Treating with albumin q8h for total 48 hours crea 2.8 --> 2.5 03/27 crea 2.3 per Nephro, hold off diuretics until crea further improves 03/28 Creatinine remaining at 2.3 Possible new baseline Diuretics on hold 03/29 crea 2.3 #HFrecEF iso ischemic cardiomyopathy LVEF 30% -->55-60% 2022 #CAD status post CABG x3 (PAEZ to LAD, AO to RCA, AO to OM1 05/2021) * Multivessel CAD including mid RCA 90% lesion with mild diffuse disease, 80% occlusion of the proximal LAD with heavily calcified lesion, and 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 Daily weights. Echo: Mild concentric LVH, EF 55 to 60%, grade 1 Diastolic dysfunction, mild to moderate mitral regurgitation continue statin #Post op afib #Hx of CVA Holding eliquis and ASA 2/2 GIB until Hgb stabilizes and crea further improves monitor on tele Resume Eliquis tomorrow #T2DM, insulin dependent last a1c August 16.4, a1c 6.4 iso acute anemia Lantus/novolog per protocol Acute stress reaction son concern pt is struggling mentally given his state of health, he has never seen psych or had therapy but encourages we follow this closely #Hypothyroidism continue synthroid DVT ppx: SCDS for now FULL CODE PCP: Mainali Dispo pt likely to need rehab, PT/OT once crea further improves (2) Acute on chronic anemia: (3) Generalized weakness: (4) DELIA (acute kidney injury): (5) Symptomatic anemia: (6) Acute GI bleeding: (7) Acute blood loss anemia: Admission and Anticipated Discharge Date Admission Date: March 23, 2024 Subjective Resting in bed, comfortable, good spirits States he feels fine overall No abdominal pain, nausea vomiting Reports 2-3 episodes of loose stools daily No fevers or chills No new symptoms Review of Systems Review of Systems: all noted and negative except for above Physical Exam Physical Exam: General- oriented x 3, not in distress, speaks in sentences with no effort or accessory muscle use Eyes- anicteric Neck- no JVD Lungs- clear breath sounds bilaterally, no rales/wheezes Heart- normal rate, regular rhythm; no murmurs Abdomen- normal bowel sounds, nondistended, soft, No tenderness Extremities- no pretibial edema, no calf tenderness Neuro- alert, oriented x 3; no gross focal neurologic deficits Skin- warm & dry Results & Data Results & Data Vital Signs (Past 12 Hours) Vital Signs Temp Pulse Resp BP Pulse Ox O2 Del Method 03/29/24 15:54 36.5 C 69 18 99/59 L 97 Room Air 03/29/24 11:47 36.5 C 75 18 96/54 L 97 Room Air 03/29/24 07:52 36.5 C 74 18 98/56 L 96 Room Air all noted and reviewed including below
[2024-03-30 03:25] LABS: Cdiff Toxin B Gene (2yr or >) Positive Cdiff Gene (Neg)
[2024-03-30 03:26] LABS: Cdiff Antigen Positive
[2024-03-30 03:27] LABS: Cdiff Toxin A+B Positive Cdiff Toxin (Negative)
--- NOTE | 2024-03-30 03:33 | Communication Note ---
Date of Service: March 30, 2024 Made aware by RN of positive stool C. difficile test. AP C. difficile diarrhea Oral vancomycin course
[2024-03-30] MEDS: VANCOMYCIN HCL 125 MG/2.5ML SOLN PO SCH (04:44)
[2024-03-30] MEDS: CHERRY SYRUP 5 ML UDP PO SCH (04:44)
[2024-03-30 06:29] LABS: BUN Creatinine Ratio 18.2 (10-20); Calcium 8.8 mg/dl (8.6-10.3); Creatinine Clr Calc Pharmacy 28.1 ml/min; Est GFR (African American) 32.3 ml/min; Est GFR (Non-African American) 27.9 ml/min; Potassium 3.9 mmol/L (3.5-5.1)
--- NOTE | 2024-03-30 14:24 | Hospitalist Progress Note ---
Date of Service March 30, 2024 Assessment & Plan (1) Cirrhosis of liver with ascites: Plan: Plan Mr. Francois 78-year-old male has complex significant past medical history of CAD status post CABG x3 (PAEZ to LAD, AO to RCA, AO to OM1 05/2021), ischemic cardiomyopathy LVEF 30% postop CABG, PAF postoperative CABG, history of multiple small CVA involving left anterior frontal lobe and left posterior temporal lobe following surgery, RBBB, HTN, HLD, T2DM, hypothyroidism, mild aortic sclerosis, mild mitral valve leaflet prolapse with mild MR, history of chronic use of Xarelto in setting of possible CVA, history of moderate size left pleural effusion post CABG, status post thoracentesis with recurrent left pleural effusion requiring multiple hospitalizations status post thoracic duct embolization 09/06/[address] Jean, CKD stage III who is admitted for concerns of weakness and found to be anemic and with decompensated cirrhosis marked by ascites. Patient reported melena and has known varices. Hgb was 6.7 on admission and is now s/p 2 UPRBC. GI to performed EGD this afternoon. #Acute on chronic anemia in setting of blood loss, c/f GIB #Melena #Hx of esophageal varices #Portal Gastropathy s/p banding 09/2023 s/p 2 U prbc on admission for hgb 6.7, up to 8 .7 -Continue on protonix and ocretide -Trend CBC q 12 hours -Transfuse < 8.0 /2 noted ICM history Holding Eliquis/asa until hgb stabilizes 03/26 Hemoglobin stable Change metoprolol to nadolol Continue Protonix 03/27 Hg stable monitor closely on Nadolol check Orthostatic VS 03/28 Tolerating nadolol Hemoglobin stable Monitor orthostatic vital signs 03/29 Remains stable overall 03/30 stable C Diff Colitis Seen resting in bed, C. difficile toxin and gene positive Vancomycin p.o. every 6 hours day number 1 out of 10 Diarrhea seems to be improving Monitor closely #Cirrhosis decompensated - MELD-Na: 25 on admission - Last EGD 09/2023 large varices banded x 3 and portal HTN gastropathy - PSE: Denies h/o HE, no evidence of HE on exam, ctm ammonia 14 on admission - Ascites: hold home Lasix:Fabio 20:50 -Consult IR for paracentesis tomorrow - SBP: c/w Rocephin f/u cell count - EV: d/c octreotide gtt Trnasition to PPI IV BID and CTX x5 d (08/13) - HRS: 1.0 up to 3.09, albumin challenge 48 hours - Daily CMP + INR to calculate MELD; low Na diet MELD: 23 - GI consult 03/26 Seems to be stable overall Status post paracentesis yesterday with removal of 3 L of fluid Continue to monitor closely GI on board, appreciate recommendations 03/28 stable overall 03/29 stable #Acute on Chronic CKD 3 baseline cr 1.7-1.8 CT a/p to eval GIB/DELIA/ascites hold lasix and aldactone albumin challenge Nephrology following Repeat Cr in am Treating with albumin q8h for total 48 hours crea 2.8 --> 2.5 03/27 crea 2.3 per Nephro, hold off diuretics until crea further improves 03/28 Creatinine remaining at 2.3 Possible new baseline Diuretics on hold 03/29 crea 2.3 03/30 crea plateaued 2.2-2.3 #HFrecEF iso ischemic cardiomyopathy LVEF 30% -->55-60% 2022 #CAD status post CABG x3 (PAEZ to LAD, AO to RCA, AO to OM1 05/2021) * Multivessel CAD including mid RCA 90% lesion with mild diffuse disease, 80% occlusion of the proximal LAD with heavily calcified lesion, and 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 Daily weights. Echo: Mild concentric LVH, EF 55 to 60%, grade 1 Diastolic dysfunction, mild to moderate mitral regurgitation continue statin #Post op afib #Hx of CVA Holding eliquis and ASA 2/2 GIB until Hgb stabilizes and crea further improves monitor on tele Resume Eliquis, Start with 2.5 mg p.o. twice daily #T2DM, insulin dependent last a1c August 16.4, a1c 6.4 iso acute anemia Lantus/novolog per protocol Acute stress reaction son concern pt is struggling mentally given his state of health, he has never seen psych or had therapy but encourages we follow this closely #Hypothyroidism continue synthroid DVT ppx: SCDS for now FULL CODE PCP: Dori Dispo pt likely to need rehab, PT/OT once crea further improves (2) Acute on chronic anemia: (3) Generalized weakness: (4) DELIA (acute kidney injury): (5) Symptomatic anemia: (6) Acute GI bleeding: (7) Acute blood loss anemia: Admission and Anticipated Discharge Date Admission Date: March 23, 2024 Subjective comfortable, in good spirits feels ok overall had 2 episodes of BM this morning no abdominal pain, nausea/vomiting no other symptoms Review of Systems Review of Systems: all noted and negative except for above Physical Exam Physical Exam: General- oriented x 3, not in distress, speaks in sentences with no effort or accessory muscle use Eyes- anicteric Neck- no JVD Lungs- clear breath sounds bilaterally, no rales/wheezes Heart- normal rate, regular rhythm; no murmurs Abdomen- normal bowel sounds, nondistended, soft, nontender Extremities- no pretibial edema, no calf tenderness Neuro- alert, oriented x 3; no gross focal neurologic deficits Skin- warm & dry Results & Data Results & Data Vital Signs (Past 12 Hours) Vital Signs Temp Pulse Resp BP Pulse Ox O2 Del Method 03/30/24 11:14 36.6 C 71 18 98/56 L 98 Room Air 03/30/24 07:24 36.4 C L 70 18 97/55 L 95 Room Air 03/30/24 02:33 36.6 C 73 18 97/59 L 97 Room Air all noted and reviewed including below
[2024-03-30] MEDS: APIXABAN 2.5 MG TAB PO SCH (20:23)
[2024-03-31 06:36] LABS: BUN Creatinine Ratio 19.5 (10-20); Calcium 8.8 mg/dl (8.6-10.3); Creatinine Clr Calc Pharmacy 28.8 ml/min; Est GFR (African American) 33.2 ml/min; Est GFR (Non-African American) 28.6 ml/min; Potassium 3.9 mmol/L (3.5-5.1)
--- NOTE | 2024-03-31 08:36 | Nephrology Progress Note ---
Date of Service March 31, 2024 Assessment & Plan (1) DELIA (acute kidney injury): Plan: plateau'd/ improved Stage 2 DELIA on CKD3 w/ baseline creatinine 1.5-2. concern that w/ his worsening liver status, his creatinine may also be worsening adn trending to new/higher baseline. no obstruction on CT admission; radiolucencies may possibly be stones -- in any case not active. HRS is dx of exclusion though can certainly be secondary/background dx; he may simply have ischemic ATN from acute anemia or other process. urine studies in [facility] yesterday and on review in [facility] notable for granular casts, 2+ leukocyte esterase and no bacteria >> ie, c/w no infection but nonspecific inflammation possibly an interstitial nephritis or an ATN. unfortunately this is best diagnosed w/ renal bx (for which he is not a candidate w/ his plts). -daily bmp -continue to hold lasix, aldactone for now w/ his C diff diarrhea (2) Generalized weakness: Plan: ? from acute on chronic anemia versus other process; now c/b C diff; slightly improved but needs rehab (3) Cirrhosis of liver with ascites: Plan: on nadolol; hold on midodrine for now -f/u GI recs Admission and Anticipated Discharge Date Admission Date: March 23, 2024 Subjective C diff +; on day 2 of po vanco; getting up and to bathroom w/ asst/walker; weakness a bit better but still significant. no sob, no orthopnea; no voiding c/o; does c/o diarrhea multiple BM ON; no edema Review of Systems 2 Review of Systems: All systems reviewed & are unremarkable except as noted in Subjective Physical Exam 2 Constitutional: well developed, + cachectic and cooperative ( in bed on RA); no acute distress ENMT: Mouth: + dry oral mucous membranes Respiratory: normal respiratory effort Auscultation: + diminished lung sounds Cardiovascular: Rate/Rhythm: regular rate and regular rhythm Extremities: + edema (trace pedal and no peripheral edema) Musculoskeletal: Extremities: strength 5/5 throughout Skin: no rashes, warm and dry Results & Data Vital Signs (Past 12 Hours) Vital Signs Temp Pulse Pulse Resp BP Pulse Ox O2 Del Method 03/31/24 08:05 36.4 C L 67 19 104/62 98 Room Air 03/31/24 03:38 36.6 C 72 18 99/57 L 99 Room Air 03/30/24 23:51 75 Laboratory Results 03/28/24 07:15 03/31/24 05:56
--- NOTE | 2024-03-31 14:21 | Hospitalist Progress Note ---
Date of Service March 31, 2024 Assessment & Plan (1) Cirrhosis of liver with ascites: Plan: Plan Mr. Francois 78-year-old male has complex significant past medical history of CAD status post CABG x3 (PAEZ to LAD, AO to RCA, AO to OM1 05/2021), ischemic cardiomyopathy LVEF 30% postop CABG, PAF postoperative CABG, history of multiple small CVA involving left anterior frontal lobe and left posterior temporal lobe following surgery, RBBB, HTN, HLD, T2DM, hypothyroidism, mild aortic sclerosis, mild mitral valve leaflet prolapse with mild MR, history of chronic use of Xarelto in setting of possible CVA, history of moderate size left pleural effusion post CABG, status post thoracentesis with recurrent left pleural effusion requiring multiple hospitalizations status post thoracic duct embolization 09/06/[address] Jean, CKD stage III who is admitted for concerns of weakness and found to be anemic and with decompensated cirrhosis marked by ascites. Patient reported melena and has known varices. Hgb was 6.7 on admission and is now s/p 2 UPRBC. GI to performed EGD this afternoon. #Acute on chronic anemia in setting of blood loss, c/f GIB #Melena #Hx of esophageal varices #Portal Gastropathy s/p banding 09/2023 s/p 2 U prbc on admission for hgb 6.7, up to 8 .7 -Continue on protonix and ocretide -Trend CBC q 12 hours -Transfuse < 8.0 / noted ICM history Holding Eliquis/asa until hgb stabilizes 03/26 Hemoglobin stable Change metoprolol to nadolol Continue Protonix 03/27 Hg stable monitor closely on Nadolol check Orthostatic VS 03/28 Tolerating nadolol Hemoglobin stable Monitor orthostatic vital signs 03/29 Remains stable overall 03/30 stable 03/31 Eliquis resumed yesterday, at a lower dose 2.5 mg p.o. twice daily If patient continues to tolerate, will increase to 5 mg twice daily tomorrow repeat Hg tomorrow C Diff Colitis Seen resting in bed, C. difficile toxin and gene positive Vancomycin p.o. every 6 hours day number 1 out of 10 Diarrhea seems to be improving Monitor closely 03/31 No diarrhea since this morning Continue to monitor closely Continue vancomycin p.o. every 6 hours #Cirrhosis decompensated - MELD-Na: 25 on admission - Last EGD 09/2023 large varices banded x 3 and portal HTN gastropathy - PSE: Denies h/o HE, no evidence of HE on exam, ctm ammonia 14 on admission - Ascites: hold home Lasix:Fabio 20:50 -Consult IR for paracentesis tomorrow - SBP: c/w Rocephin f/u cell count - EV: d/c octreotide gtt Trnasition to PPI IV BID and CTX x5 d (08/13) - HRS: 1.0 up to 3.09, albumin challenge 48 hours - Daily CMP + INR to calculate MELD; low Na diet MELD: 23 - GI consult 03/26 Seems to be stable overall Status post paracentesis yesterday with removal of 3 L of fluid Continue to monitor closely GI on board, appreciate recommendations 03/28 stable overall 03/29 stable 03/31 stable overall #Acute on Chronic CKD 3 baseline cr 1.7-1.8 CT a/p to eval GIB/DELIA/ascites hold lasix and aldactone albumin challenge Nephrology following Repeat Cr in am Treating with albumin q8h for total 48 hours crea 2.8 --> 2.5 03/27 crea 2.3 per Nephro, hold off diuretics until crea further improves 03/28 Creatinine remaining at 2.3 Possible new baseline Diuretics on hold 03/29 crea 2.3 03/30 crea plateaued 2.2-2.3 03/31 Creatinine 2.1 today Diuretics held in light of diarrhea Continue to monitor #HFrecEF iso ischemic cardiomyopathy LVEF 30% -->55-60% 2022 #CAD status post CABG x3 (PAEZ to LAD, AO to RCA, AO to OM1 05/2021) * Multivessel CAD including mid RCA 90% lesion with mild diffuse disease, 80% occlusion of the proximal LAD with heavily calcified lesion, and 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 Daily weights. Echo: Mild concentric LVH, EF 55 to 60%, grade 1 Diastolic dysfunction, mild to moderate mitral regurgitation continue statin #Post op afib #Hx of CVA Holding eliquis and ASA 2/2 GIB until Hgb stabilizes and crea further improves monitor on tele Resumed Eliquis, Started with 2.5 mg p.o. twice daily resume usual dose of 5 mg twice daily tomorrow if hemoglobin stable #T2DM, insulin dependent last a1c August 16.4, a1c 6.4 iso acute anemia Lantus/novolog per protocol Acute stress reaction son concern pt is struggling mentally given his state of health, he has never seen psych or had therapy but encourages we follow this closely #Hypothyroidism continue synthroid DVT ppx: SCDS for now FULL CODE PCP: Mainali Dispo pt likely to need rehab, PT/OT once crea further improves (2) Acute on chronic anemia: (3) Generalized weakness: (4) DELIA (acute kidney injury): (5) Symptomatic anemia: (6) Acute GI bleeding: (7) Acute blood loss anemia: Admission and Anticipated Discharge Date Admission Date: March 23, 2024 Subjective Follow-up for decompensated liver cirrhosis, etc. Seen resting in bed, comfortable, in good spirits Patient's at bedside visiting States he feels fine overall, got easily tired after having breakfast in his bedside chair Had 5 episodes of diarrhea last night, none since No abdominal pain, nausea vomiting, fevers or chills Review of Systems Review of Systems: all noted and negative except for above Physical Exam Physical Exam: General- oriented x 3, not in distress, speaks in sentences with no effort or accessory muscle use Eyes- anicteric Neck- no JVD Lungs- clear breath sounds bilaterally, no rales/wheezes Heart- normal rate, regular rhythm; no murmurs Abdomen- normal bowel sounds, nondistended, soft, nontender Extremities- no pretibial edema, no calf tenderness Neuro- alert, oriented x 3; no gross focal neurologic deficits Skin- warm & dry Results & Data Results & Data Vital Signs (Past 12 Hours) Vital Signs Temp Pulse Pulse Resp BP Pulse Ox O2 Del Method 03/31/24 12:10 36.3 C L 69 18 91/53 L 96 Room Air 03/31/24 08:05 36.4 C L 67 19 104/62 98 Room Air 03/31/24 08:00 68 03/31/24 03:38 36.6 C 72 18 99/57 L 99 Room Air all noted and reviewed including below
[2024-04-01 06:38] LABS: BUN Creatinine Ratio 19.8 (10-20); Creatinine Clr Calc Pharmacy 29.2 ml/min; Est GFR (African American) 33.8 ml/min; Est GFR (Non-African American) 29.1 ml/min; Potassium 3.7 mmol/L (3.5-5.1)
[2024-04-01] MEDS: APIXABAN 5 MG TABLET PO SCH (11:06)
[2024-04-01] MEDS: TRIMETHOPRIM/POLYMYXIN B OP SCH (16:09)
--- NOTE | 2024-04-01 16:16 | Hospitalist Progress Note ---
Date of Service April 01, 2024 Assessment & Plan (1) Cirrhosis of liver with ascites: Plan: Plan Mr. Francois 78-year-old male has complex significant past medical history of CAD status post CABG x3 (PAEZ to LAD, AO to RCA, AO to OM1 05/2021), ischemic cardiomyopathy LVEF 30% postop CABG, PAF postoperative CABG, history of multiple small CVA involving left anterior frontal lobe and left posterior temporal lobe following surgery, RBBB, HTN, HLD, T2DM, hypothyroidism, mild aortic sclerosis, mild mitral valve leaflet prolapse with mild MR, history of chronic use of Xarelto in setting of possible CVA, history of moderate size left pleural effusion post CABG, status post thoracentesis with recurrent left pleural effusion requiring multiple hospitalizations status post thoracic duct embolization 09/06/[address] Jean, CKD stage III who is admitted for concerns of weakness and found to be anemic and with decompensated cirrhosis marked by ascites. Patient reported melena and has known varices. Hgb was 6.7 on admission and is now s/p 2 UPRBC. GI to performed EGD this afternoon. #Acute on chronic anemia in setting of blood loss, c/f GIB #Melena #Hx of esophageal varices #Portal Gastropathy s/p banding 09/2023 s/p 2 U prbc on admission for hgb 6.7, up to 8 .7 -Continue on protonix and ocretide -Trend CBC q 12 hours -Transfuse < 8.0 2/2 noted ICM history Holding Eliquis/asa until hgb stabilizes 03/21-24 Hemoglobin stable Changed metoprolol to nadolol Continue Protonix Tolerating nadolol Hemoglobin stable Remains stable overall Eliquis resumed Repeat CBC pending C Diff Colitis Seen resting in bed, C. difficile toxin and gene positive Vancomycin p.o. every 6 hours day number 3 out of 10 Diarrhea seems to be improving Monitor closely #Cirrhosis decompensated - MELD-Na: 25 on admission - Last EGD 09/2023 large varices banded x 3 and portal HTN gastropathy - PSE: Denies h/o HE, no evidence of HE on exam, ctm ammonia 14 on admission - Ascites: hold home Lasix:Fabio 20:50 -Consult IR for paracentesis tomorrow - SBP: c/w Rocephin f/u cell count - EV: d/c octreotide gtt Trnasition to PPI IV BID and CTX x5 d (08/13) - HRS: 1.0 up to 3.09, albumin challenge 48 hours - Daily CMP + INR to calculate MELD; low Na diet MELD: 23 - GI consult 03/26 Seems to be stable overall Status post paracentesis yesterday with removal of 3 L of fluid Continue to monitor closely GI on board, appreciate recommendations 04/01 stable overall #Acute on Chronic CKD 3 baseline cr 1.7-1.8 CT a/p to eval GIB/DELIA/ascites hold lasix and aldactone crea 2.8 --> 2.5--> has remained around 2.1-2.2 Nephrology service to provide recommendations regarding diuretics upon discharge Discussed with Dr. 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 Daily weights. Echo: Mild concentric LVH, EF 55 to 60%, grade 1 Diastolic dysfunction, mild to moderate mitral regurgitation continue statin #Post op afib #Hx of CVA Holding eliquis and ASA 2/2 GIB until Hgb stabilizes and crea further improves monitor on tele resume usual dose of 5 mg twice daily monitor Hg #T2DM, insulin dependent last a1c August 8.4, a1c 6.4 iso acute anemia Lantus/novolog per protocol Acute stress reaction son concern pt is struggling mentally given his state of health, he has never seen psych or had therapy but encourages we follow this closely #Hypothyroidism continue synthroid DVT ppx: SCDS for now FULL CODE PCP: Mainali Dispo Patient to be accepted to [facility] to [facility] tomorrow (2) Acute on chronic anemia: (3) Generalized weakness: (4) DELIA (acute kidney injury): (5) Symptomatic anemia: (6) Acute GI bleeding: (7) Acute blood loss anemia: Admission and Anticipated Discharge Date Admission Date: March 23, 2024 Subjective Follow-up for decompensated liver cirrhosis, hepatorenal syndrome, C. difficile colitis, etc. Seen resting in bed, comfortable, not in distress States he feels fine overall No diarrhea today, tolerating diet well Appetite is fair Reports left eye itching, with some discharge, no blurring of vision No other new symptoms Review of Systems Review of Systems: all noted and negative except for above Physical Exam Physical Exam: General- oriented x 3, not in distress, speaks in sentences with no effort or accessory muscle use Eyes- anicteric Left eye: Mild periorbital erythema, mild eyelid edema Neck- no JVD Lungs- clear breath sounds bilaterally, no rales/wheezes Heart- normal rate, regular rhythm; no murmurs Abdomen- normal bowel sounds, nondistended, soft, nontender Extremities- no pretibial edema, no calf tenderness Neuro- alert, oriented x 3; no gross focal neurologic deficits Skin- warm & dry Results & Data Results & Data Vital Signs (Past 12 Hours) Vital Signs Temp Pulse Pulse Resp BP Pulse Ox O2 Del Method 04/01/24 15:44 36.7 C 62 18 97/58 L 97 Room Air 04/01/24 10:46 36.5 C 63 16 95/56 L 96 Room Air 04/01/24 08:00 67 04/01/24 07:12 36.4 C L 65 17 94/56 L 97 Room Air all noted and reviewed including below
[2024-04-01 17:00] LABS: Basophils # (auto) 0.06 K/uL (0.00-0.20); Basophils % (auto) 1.7 %; Eosinophils # (auto) 0.11 K/uL (0.00-0.50); Eosinophils % (auto) 3.2 %; Hematocrit (blood only) 26.9 % (42.0-52.0); Hemoglobin 8.2 g/dl (14.0-18.0); Immature Granulocytes # (auto) 0.01 K/uL (0.01-0.20); Immature Granulocytes % (auto) 0.3 %; Lymphocytes # (auto) 0.59 K/uL (1.20-3.40); Mean Corpuscular Hemoglobin 25.7 pg (25.0-34.0); Mean Corpuscular Hgb Conc 30.5 g/dL (32.0-36.0); Mean Corpuscular Volume 84.3 fL (80.0-100.0); Monocytes # (auto) 0.44 K/uL (0.11-0.59); Monocytes % (auto) 12.6 %; Neutrophils # (auto) 2.27 K/uL (1.40-6.50); Neutrophils % (auto) 65.2 %; Platelet Count 75 K/uL (130-400); RDW Coefficient of Variation 17.3 % (11.5-14.5); RDW Standard Deviation 52.5 fL (36.4-46.3); Red Blood Count 3.19 M/uL (4.70-6.10); White Blood Count 3.48 K/ul (4.8-10.8)
[2024-04-02 06:40] LABS: BUN Creatinine Ratio 19.3 (10-20); Creatinine Clr Calc Pharmacy 30.6 ml/min; Est GFR (African American) 35.8 ml/min; Est GFR (Non-African American) 30.9 ml/min; Potassium 3.7 mmol/L (3.5-5.1)
[2024-04-02 07:47] VITALS: PULSE 65
[2024-04-02 10:38] VITALS: BP 96/57; RESP 19; TEMP 98.2; O2SAT 96
--- NOTE | 2024-04-02 11:57 | Nephrology Progress Note ---
Date of Service April 02, 2024 Assessment & Plan (1) DELIA (acute kidney injury): Plan: plateau'd/ improved Stage 2 DELIA on CKD3 w/ baseline creatinine 1.5-2. concern that w/ his worsening liver status, his creatinine may also be worsening adn trending to new/higher baseline. no obstruction on CT admission; radiolucencies may possibly be stones -- in any case not active. HRS is dx of exclusion though can certainly be secondary/background dx; he may simply have ischemic ATN from acute anemia or other process. urine studies in [employer] yesterday and on review in [facility] notable for granular casts, 2+ leukocyte esterase and no bacteria >> ie, c/w no infection but nonspecific inflammation possibly an interstitial nephritis or an ATN. unfortunately this is best diagnosed w/ renal bx (for which he is not a candidate w/ his plts). -daily bmp -continue to hold lasix, aldactone for now w/ his C diff diarrhea NEPHROLOGY D/C RECS -given significant CVD hx, recommend resuming OP metoprolol at hospital d/c in lieu of nadolol -after d/c, resume lasix 20 mg daily and spironolactone 50 mg daily unless >3 BM daily consistently -recommend weekly bmp at rehab -needs hospital d/c appt w/ Dr Breezy Meadows in nephro in 3-4 wks w/ cmp, uacm, ACR, cbc/d, PTH, 25 OHD, phos all to be ordered by nephro nurse -[facility] d/c appt w/ Dr Lia Meadows in int med week after rehab d/c -ensure appropriate GI follow up (2) Generalized weakness: Plan: ? from acute on chronic anemia versus other process; now c/b C diff; slightly improved but needs rehab > for d/c there today (3) Cirrhosis of liver with ascites: Plan: on nadolol> consider metoprolol as above; hold on midodrine for now -f/u GI recs Admission and Anticipated Discharge Date Admission Date: March 23, 2024 Subjective no interval events clinically; denies sob; some fatigue w/ ambulation w/ walker and supervision to commode; denies edema; denies increasing abd girth; 1 BM recorded ON Review of Systems 2 Review of Systems: All systems reviewed & are unremarkable except as noted in Subjective Physical Exam 2 Constitutional: well developed, + cachectic and cooperative ( in bed on RA); no acute distress ENMT: Mouth: + dry oral mucous membranes Respiratory: normal respiratory effort Auscultation: + diminished lung sounds Cardiovascular: Rate/Rhythm: regular rate and regular rhythm Heart Sounds: + murmur Extremities: + edema (trace pedal and no peripheral edema) Gastrointestinal (Abdomen): Inspection/Auscultation: normal bowel sounds P ercussion/Palpation: abdomen soft; abdomen nontender Musculoskeletal: Extremities: strength 5/5 throughout Skin: no rashes, warm and dry Results & Data Vital Signs (Past 12 Hours) Vital Signs Temp Pulse Pulse Resp BP Pulse Ox O2 Del Method 04/02/24 10:37 36.8 C 65 19 96/57 L 96 Room Air 04/02/24 07:47 65 04/02/24 07:11 36.7 C 64 17 97/58 L 99 Room Air 04/02/24 03:27 36.6 C 65 18 100/63 100 Room Air 04/02/24 00:11 36.4 C L 64 18 97/63 L 100 Room Air Laboratory Results 04/01/24 16:40 04/02/24 05:30
--- NOTE | 2024-04-02 14:15 | Discharge Summary ---
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 He states his symptoms have been ongoing for the last 3 months. He reports having loose runny stool ever since completing a years worth of amoxicillin. He did not really take note but over the last few weeks and noticed his stools to be more black. He also been has getting increasingly more weak having difficulty walking and almost falling. He feels his abdomen is more distended, but this comes and goes. He denies any fever, chills, sweats, syncope, chest pain, shortness breath at rest, nausea, vomiting, dysuria, increased urgency or frequency with urination or hematuria. He states he tends to have incontinence of stool and always moves his bowels when he urinates. He denies any trini bright red blood. He is currently on Eliquis and his last dose was in the p.m. on 03/22. He also takes aspirin 3 times a week and his last dose was Sunday morning. Son at bedside notes that he has been getting increasingly weak over the last several weeks, but this morning he was unable to even get out of bed. He had reported a steady decline over the last few months, but patient was resistant to getting evaluated. He follows with Dr. Ya of Hepatology. He was last seen in November of 2023. Last EGD October 2023 revealed small esophageal varices with no bleeding or stigmata of recent bleeding. Scarring is seen from prior banding. Portal hypertensive gastropathy. Son feels since his last hepatology evaluation he has had a steady decline. He did have a paracentesis back in December. He denies any significant NSAID use. He denies any trini abdominal pain. Son reports concern in patient's emotional/psychological wellbeing as he had noted him to become increasingly more down apathetic over the last few months. In ED patient was hemodynamically stable although hemoglobin was noted to be 6.7. He was consented and typed and crossed with 2 units to be transfused. He was grossly heme positive per ED provider. Further lab abnormalities include sodium of 132, BUN 71, creatinine 3.09. Admission Exam Per Admitting Provider Constitutional: chronically ill appearing, pale, answers questions approp, vitals as above, NAD, sitting up in bed Head: Normocephalic, Atraumatic Eyes: PERRL, conjunctivae normal, anicteric sclerae ENMT: external ear and nose normal, oropharynx normal dry membranes, front tooth broke off Neck: trachea midline, no thyromegaly normal visual inspection Respiratory: normal respiratory effort, no audible w/r/r Cardiovascular: RRR HR in 70s Chest: normal inspection of chest Abdomen: distended abd but soft Musculoskeletal: AROM x 4, Skin: no rashes, warm and dry normal turgor Neurologic: no face palsy, no dysarthria CN's II-XI intact bilaterally and moves all extremities Psychiatric: A+Ox3, dysthymic affect Principal Diagnosis Acute on chronic anemia Gastrointestinal bleeding Gastric Neuroendocrine tumor C diff colitis Decompensated cirrhosis Acute on chronic kidney disease Discharge Exam Constitutional + well hydrated; no acute distress Eyes PERRL, conjunctivae normal, anicteric sclerae ENMT external ear and nose normal, oropharynx normal Respiratory normal respiratory effort, lungs clear to auscultation Cardiovascular Rate/Rhythm: regular rate and regular rhythm Gastrointestinal (Abdomen) Soft nontender, mildly distended, normal bowel sounds Neurologic PERRL, EOMI, accommodation nl, no face palsy, no dysarthria Psychiatric A+Ox3, euthymic affect Discharge Data Allergies Allergy/AdvReac Type Severity Reaction Status Date / Time Sulfa (Sulfonamide Allergy Unknown CHILDHOOD Verified 09/13/23 08:32 Antibiotics) ALLERGY--CAN'T REMEMBER tramadol AdvReac Severe SEVERE Verified 09/13/23 08:32 VOMITING omeprazole AdvReac Intermediate PER PT Verified 09/13/23 08:32 "DID THE OPPOSITE, MADE ME WORSE". Consultations 03/23/24 16:45 ED Decision to Admit Stat 03/23/24 17:52 Consult Gastroenterology Routine 03/24/24 08:55 Consult Nephrology Routine Procedures Performed Operation Date: 03/24/24 17:00 Actual Procedures p EGD Biopsy Cytology - Hernandez Higgins MD Ordered Studies 03/23/24 17:58 CT Abd and Pelvis [CT abd pelvis wo con] Stat 03/25/24 IR paracentesis abd w/img US Routine Hospital Course (1) Cirrhosis of liver with ascites: (2) Acute on chronic anemia: (3) Generalized weakness: (4) DELIA (acute kidney injury): (5) Symptomatic anemia: (6) Acute GI bleeding: (7) Acute blood loss anemia: Plan 78-year-old male has complex significant past medical history of CAD status post CABG x3 (PAEZ to LAD, AO to RCA, AO to OM1 05/2021), ischemic cardiomyopathy LVEF 30% postop CABG, PAF postoperative CABG, history of multiple small CVA involving left anterior frontal lobe and left posterior temporal lobe following surgery, RBBB, HTN, HLD, T2DM, hypothyroidism, mild aortic sclerosis, mild mitral valve leaflet prolapse with mild MR, history of moderate size left pleural effusion post CABG, status post thoracentesis with recurrent left pleural effusion requiring multiple hospitalizations status post thoracic duct embolization 09/06/[address] Jean, CKD stage III who was admitted for concerns of weakness and dark stools. Found to be anemic and with decompensated cirrhosis marked by ascites. Patient reported melena and has known varices. #Acute on chronic anemia in setting of blood loss, c/f GIB #Melena #Hx of esophageal varices #Portal Gastropathy s/p banding 09/2023 Hgb 6.7 on admission S/p 2 PRBC Was initially on IV PPI, octreotide S/p EGD on 03/24/24 which showed post variceal banding scar in lower 3rd of esophagus and mid 3rd, no significant active varices or stigmata. 2 small muc osal nodules noted in proximal gastric body. Examined duodenum was normal. 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 difficile toxin and gene positive Reports diarrhea is improving Discharged on po vancomycin to complete treatment #Cirrhosis decompensated - MELD-Na: 25 on admission - EGD prior to this admission on 09/2023 showed large varices banded x 3 and portal HTN gastropathy Status post paracentesis with removal of 3 L of fluid Counseled about fluid restriction and low salt diet Patient is to follow up with GI/Hepatology outpatient Home metoprolol was initially held for nadolol inpt but nadolol was discontinued on discharge per Nephro recs #Acute on Chronic CKD 3 baseline cr 1.7-1.8 Cr was 3.09 on admission Was comanaged with Nephrology Cr improved to 2.02 on discharge Nephrology recommendations on discharge: -given significant CVD hx, recommend resuming OP metoprolol at hospital d/c -after d/c, resume lasix 20 mg daily and spironolactone 50 mg daily unless >3 BM daily consistently -recommend weekly bmp at rehab -needs hospital d/c appt w/ Dr Breezy Meadows in nephro in 3-4 wks w/ cmp, uacm, ACR, cbc/d, PTH, 25 OHD, phos all to be ordered by nephro nurse -ensure appropriate GI follow up #Heart failure with recovered EF iso ischemic cardiomyopathy LVEF 30% -->55-60% 2022 #CAD status post CABG x3 (PAEZ to LAD, AO to RCA, AO to OM1 05/2021) * Multivessel CAD including mid RCA 90% lesion with mild diffuse disease, 80% occlusion of the proximal LAD with heavily calcified lesion, and 100% [employer] of left circumflex with [id number] and [id number] collaterals, per cath 05/27/2021 at [facility] cardiac history, with recovered EF% Prior use of KATHI/ARB dc'd due to CKD/DELIA Continue Metoprolol succinate 100mg BID 2g sodium diet. Daily weights. Echo: Mild concentric LVH, EF 55 to 60%, grade 1 Diastolic dysfunction, mild to moderate mitral regurgitation Continue statin #Post op afib #Hx of CVA Home eliquis and aspirin were initially held on presentation due to concern for possible GI bleed Eliquis was resumed with good tolerance Home ASA resumed on discharge #T2DM, insulin dependent last a1c August 8.4, Hba1c 6.4 this time in the setting of acute anemia Continue home insulin and trulicity Monitor and avoid hypoglycemia #Hypothyroidism continue synthroid I updated son about findings and plan, answered all his questions Total Time Total Time Spent Total Time Spent (In Minutes): 45 Total Time Includes: Examination of the Patient, Discharge Planning, Medication Reconciliation and Other Discharge Plan Discharge Items Patient Disposition: Transfer [facility] Reason For Visit: GI bleeding Discharge Diagnosis: Acute on chronic anemia Gastrointestinal bleeding Gastric Neuroendocrine tumor C diff colitis Decompensated cirrhosis Acute on chronic kidney disease Activity: As commented below Activity Comment: As recommended by Physical therapy Non-emergency contact: Primary Care Provider, Client Support Professional and Oncologist Call non-emergency contact if: you have any medication questions and your symptoms worsen Follow-up/Referrals: Breezy Meadows MD [Surgeon] - (The Nephrology office will contact you for a follow up appointment and lab work.) Lia Meadows MD [Primary Care Provider] - Zabrina Ya DO [Physician] - (Date & Time 05/23/2024 8:40 AM Provider Zabrina Ya DO Department Hepatology, [facility] *The office will contact you if a sooner appointment becomes available* ) Mónica Cantu MD [Outside Practitioners] - 04/10/24 11:00 am ([facility] ) Diet: Carb Consistent or DM2, Heart Healthy and Low Sodium (2gm) Fluids: 1500ml (6 cups) Addtl Attending Provider Instructions: Mr Francois You came to the hospital due to dark stool. You were evaluated and managed for the above listed diagnoses. You had endoscopy and biopsy. Biopsy result showed Gastric neuroendocrine tumor grade 2. Please ensure follow up with Oncologist Dr Cantu on appt scheduled for 04/10/24 at 11am for further workup and management. Please resume your lasix 20mg daily and spironolactone 50mg daily unless more than 3 bowel movements daily consistently Please check weekly Basic metabolic Panel while at rehab. Please ensure follow up with Gastroenterology/hepatology. Please ensure follow up with your Primary Doctor and Nephrology. It was a pleasure taking care of you. Pending Studies at Discharge: No Stand-Alone Forms: My [facility] Skilled Items Patient informed of condition?: Yes DNR: No Discharge Level of Care: Acute rehab Communicable Disease: No Discharge Prognosis: Stable Lines: None Urinary Catheter: No Medications and DC Order Prescriptions: New vancomycin 125 mg capsule 125 mg PO Q6H 6 Days Qty: 24 0RF Continued nitroglycerin [Nitrostat] 0.4 mg Tablet, Sublingual 0.4 mg sublingual DIRECTED PRN (Reason: Chest Pain) Patient Comments: pt states has not had to use atorvastatin 40 mg Tablet 40 mg PO QAM Qty: 30 0RF ondansetron HCl 4 mg Tablet 4 mg PO Q8H PRN (Reason: Nausea) Qty: 10 0RF metoprolol succinate 100 mg Tablet Extended Release 24 Hr 100 mg PO BID 30 Days Qty: 60 0RF aspirin 81 mg tablet,delayed release (DR/EC) 81 mg PO 3XWK 30 Days Qty: 14 0RF Rx Instructions: MON, SUN, & FRI. levothyroxine 88 mcg Tablet 88 mcg PO DAILYBB Qty: 30 0RF ascorbic acid (vitamin C) [Vitamin C] 500 mg Tablet 500 mg PO QAM Qty: 30 0RF furosemide 20 mg tablet 20 mg PO QAM Qty: 30 0RF spironolactone 50 mg tablet 50 mg PO DAILY Qty: 30 0RF insulin glargine 100 unit/mL (3 mL) Insulin Pen 38 unit SUBCUT HS Qty: 15 0RF cholecalciferol (vitamin D3) [Vitamin D3] 50 mcg (2,000 unit) Capsule 50 mcg PO QAM Qty: 30 0RF Eliquis 5 mg tablet 5 mg PO BID Qty: 60 0RF Trulicity 1.5 mg/0.5 mL Pen Injector 3 mg SUBCUT WK 30 Days Qty: 2 0RF Rx Instructions: TAKES ON SUNDAY EVENING Discontinued gabapentin 100 mg capsule 200 mg PO HS Discharge Orders: Discharge Order (Routine); Ordered 04/02/24 Ordered By: Azeb Conte/Other Patient Handouts: High Blood Sugar (Hyperglycemia), Hypoglycemia (Low Blood Sugar), Managing Type 2 Diabetes, How to Check Your Blood Sugar Admission Data Admit Date/Time: 03/23/24 17:05 Attending Provider: Azeb Clifton I. Admit Provider: Jose Pierre Primary Care Provider: Lia Meadows Other Providers: Arabella Louise Jr; Jose Pierre; Kajal Wang; David Nye [place]; [place]; Hugo Castro
--- NOTE | 2024-04-03 13:13 | Coding Query ---
CODING QUERY To promote full compliance with coding requirements relating to patient care, provider participation is requested in all cases of academic services coordinator uncertainty. Please assist us with the question(s) below: Coding Question(s): Pt admitted with melena. Complex medical history of decompensated cirrhosis, DELIA. EGD biopsy - Gastric Neuroendocrine Tumor Stage 2. Please document, if known or suspected, the etiology of the melena. Thanks for your help! Jermaine Moya [facility] Physician's Response(s): Possible Gastrointestinal bleeding Principal Diagnosis: "that condition established after study, to be chiefly responsible for occasioning the admission of the patient to the hospital for care." Co-Existing Principal Diagnosis: "when two or more diagnoses equally meet the criteria for principal diagnosis as determined by the circumstances of admission, diagnostic work up, and/or therapy provided, and the Alphabetic Index, Tabular List, or another coding guideline does not provide sequencing direction, any one of the diagnoses may be sequenced first." "When the physician has documented what appears to be a current diagnosis in the body of the record, but has not included the diagnosis in the final diagnostic statement, the physician should be asked whether the diagnosis should be added." (Source Coding [facility] 2 QTR90. p3-4) [facility]
--- NOTE | 2024-04-03 13:21 | Coding Query ---
CODING QUERY To promote full compliance with coding requirements relating to patient care, provider participation is requested in all cases of plate drying machine tender uncertainty. Please assist us with the question(s) below: Coding Question(s): Pt admitted with melena, decompensated cirrhosis with ascites. Nephrology followed for DELIA . Nephrology notes mentioned possible ATN. Seeking to clarify DELIA/ATN. Please check below the diagnosis, after study, that was treated during this inpatient stay. Thank you ! Jermaine Moya [facility] Physician's Response(s): Acute on chronic kidney disease stage III, POA DELIA was treated , Present on admission ATN was treated , Present on admission Principal Diagnosis: "that condition established after study, to be chiefly responsible for occasioning the admission of the patient to the hospital for care." Co-Existing Principal Diagnosis: "when two or more diagnoses equally meet the criteria for principal diagnosis as determined by the circumstances of admission, diagnostic work up, and/or therapy provided, and the Alphabetic Index, Tabular List, or another coding guideline does not provide sequencing direction, any one of the diagnoses may be sequenced first." "When the physician has documented what appears to be a current diagnosis in the body of the record, but has not included the diagnosis in the final diagnostic statement, the physician should be asked whether the diagnosis should be added." (Source Coding Clinic 2 QTR90. p3-4) [facility]
== END 2024-04-02 15:13 | DRG 378 ==
LOC: ED 15:22 → EDINP 17:05 → SUATTDRO 17:05 → 4W 20:09

== ENCOUNTER 2024-07-18 14:04 | Inpatient (IN) ==
[2024-07-18 14:47] LABS: iSTAT Creatinine 4.7 mg/dl (0.6-1.3); iSTAT Hemoglobin 9.5 g/dl (14.0-18.0); iSTAT Ionized Calcium 1.28 mmol/l (1.12-1.32)
[2024-07-18 14:51] LABS: Basophils # (auto) 0.02 K/uL (0.00-0.20); Basophils % (auto) 0.5 %; Hematocrit (blood only) 27.3 % (42.0-52.0); Hemoglobin 8.2 g/dl (14.0-18.0); Immature Granulocytes # (auto) 0.02 K/uL (0.01-0.20); Immature Granulocytes % (auto) 0.5 %; Lymphocytes % (auto) 10.3 %; Mean Corpuscular Hemoglobin 23.9 pg (25.0-34.0); Mean Corpuscular Volume 79.6 fL (80.0-100.0); Mean Platelet Volume 12.1 fL (9.4-12.4); Monocytes # (auto) 0.62 K/uL (0.11-0.59); Monocytes % (auto) 15.9 %; Neutrophils # (auto) 2.84 K/uL (1.40-6.50); Neutrophils % (auto) 72.8 %; Platelet Count 144 K/uL (130-400); RDW Coefficient of Variation 19.2 % (11.5-14.5); RDW Standard Deviation 55.2 fL (36.4-46.3); Red Blood Count 3.43 M/uL (4.70-6.10)
[2024-07-18 15:04] LABS: Albumin Level 3.2 gm/dl (3.4-5.0); BUN Creatinine Ratio 15.1 (10-20); Bilirubin Direct 0.5 mg/dl (0-0.2); Bilirubin,Total 1.4 mg/dl (0.2-1.0); Calcium 9.2 mg/dl (8.6-10.3); Creatinine Clr Calc Pharmacy 15.1 ml/min; Total Protein 6.3 gm/dl (6.0-8.3)
--- NOTE | 2024-07-18 15:04 | Emergency Department Note ---
History of Present Illness General Chief Complaint: Abnormal Labs/Diagnostic Testing Stated Complaint: ABNORMAL BLOOD WORK Time Seen by Provider: 07/18/24 14:14 Source: family (Son at bedside) History of Present Illness Provider Complaint: + abnormal lab Returns today for: + called because of abnormal lab/test Description of abnormal result: Elevated creatinine low hemoglobin Context: + called for abnormal lab result HPI narrative: Patient's son reports that the patient was sent in here by his oncologist Dr. Batres from [facility] for an elevated creatinine and low hemoglobin. He states that the patient has fallen multiple times and his last fall was last night. Patient is on Eliquis. Son reports that the patient has not been taking lactulose and he is increasingly lethargic and slow to respond to questions. Home Medications Medication Instructions Recorded Confirmed Type nitroglycerin 0.4 mg sublingual 0.4 mg sublingual DIRECTED PRN 11/08/21 07/18/24 History tablet (Nitrostat) Chest Pain apixaban 5 mg tablet (Eliquis) 5 mg PO BID #60 tabs 04/02/24 07/18/24 Rx ascorbic acid (vitamin C) 500 mg 500 mg PO QAM #30 tabs 04/02/24 07/18/24 Rx tablet (Vitamin C) aspirin 81 mg tablet,delayed 81 mg PO 3XWK 30 days #14 tabs 04/02/24 07/18/24 Rx release atorvastatin 40 mg tablet 40 mg PO QAM #30 tabs 04/02/24 07/18/24 Rx cholecalciferol (vitamin D3) 50 50 mcg PO QAM #30 caps 04/02/24 07/18/24 Rx mcg (2,000 unit) capsule (Vitamin D3) dulaglutide 1.5 mg/0.5 mL 3 mg subcut WK 1 month #2 mL 04/02/24 07/18/24 Rx subcutaneous pen injector (Trulicity) furosemide 20 mg tablet 20 mg PO QAM #30 tabs 04/02/24 07/18/24 Rx insulin glargine 100 unit/mL (3 38 unit (0.38 mL) subcut HS #15 mL 04/02/24 07/18/24 Rx mL) subcutaneous pen levothyroxine 88 mcg tablet 88 mcg PO DAILYBB #30 tabs 04/02/24 07/18/24 Rx metoprolol succinate 100 mg 100 mg PO BID 30 days #60 tabs 04/02/24 07/18/24 Rx tablet,extended release 24 hr ondansetron HCl 4 mg tablet 4 mg PO Q8H PRN Nausea #10 tabs 04/02/24 07/18/24 Rx spironolactone 50 mg tablet 50 mg PO DAILY #30 tabs 04/02/24 07/18/24 Rx Allergies Allergy/AdvReac Type Severity Reaction Status Date / Time Sulfa (Sulfonamide Allergy Unknown CHILDHOOD Verified 09/13/23 08:32 Antibiotics) ALLERGY--CAN'T REMEMBER tramadol AdvReac Severe SEVERE Verified 09/13/23 08:32 VOMITING omeprazole AdvReac Intermediate PER PT Verified 09/13/23 08:32 "DID THE OPPOSITE, MADE ME WORSE". 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 Acute renal failure Acute on chronic anemia Symptomatic anemia (Acute) Acute blood loss anemia GIB (gastrointestinal bleeding) BPH NOS w ur obs/LUTS Encounter for pre-operative examination Calculus of proximal right ureter Hydronephrosis (Acute) Renal colic (Acute) Acute urinary retention (Acute) Leukopenia (Acute) Pancytopenia jail (current) use of antibiotics 2 gm bid amoxicillin for empyema through November 2022-- completed amoxicillin now started on doxycycline Abdominal pain (Acute) Medical History Cirrhosis of liver with ascites Generalized weakness DELIA (acute kidney injury) Acute GI bleeding Esophageal varices Incomplete emptying of bladder Cirrhosis of liver with ascites states has to have a paracentesis done CAD (coronary artery disease) Multivessel CAD including mid RCA 90% lesion with mild diffuse disease, 80% occlusion of the proximal LAD with heavily calcified lesion, and 100% SUSTAINABILITY 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 circumflex with [id number] and [id number] collaterals, per cath 05/27/2021 [place] [facility] [place] post CABG x3 (PAEZ to LAD, AO to RCA, AO to OM1) with and the graphic saphenous vein harvest, 05/30/2021 DELIA (acute kidney injury) Chylothorax Ischemic cardiomyopathy LVEF 30% post CABG; GRADE I diastolic dysfunction, NYHA class 2 Hypothyroid Diabetes mellitus IDDM Hyperlipidemia Hypertension Carotid artery stenosis Atrial fibrillation post operative CABG 2020, denies current 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 Osteoarthritis History of kidney stones stents placed and removed Stroke patient denies CKD (chronic kidney disease) stage 3, GFR 30-59 ml/min TIA (transient ischemic attack) in [place] prior to 2020 AND post operatively 2020 [facility], no deficits 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, months of abtx---no antibiotics currently Surgical History Hx of cystoscopy w/ stent - 09/20/22 Hx of cardiac catheterization 05/2021 Hx of colonoscopy History of esophagogastroduodenoscopy (EGD) Hx of chest tube placement Hx of cholecystectomy History of coronary artery bypass graft CABG x 3 (PAEZ -LAD; AO-RCA; AO-OM1 w/ graphic SVG on 05/30/2021 Family History Other Heart disease Social History Smoking Status: Former smoker Tobacco Type: Cigarettes packs per day: 1; Cigarettes Per Day: quit ~ 30 yrs ago; Second Hand Exposure: No; Do You Dip or Chew Tobacco: No; Hx Alcohol Use: No Hx Substance Use: No Preferred Language: Swazi Communication Ability: Effective Visual Impairment: No Limitations Railway Head 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 Required: No Beliefs That Will Affect Care: None Current Living Situation: Spouse Feels Safe at Home: Yes Assistive Devices: None Physical Exam 2 Vital Signs: Vital Signs - 24 hr 07/18/24 14:07 07/18/24 14:33 07/18/24 15:12 Pulse Rate 93 H 68 72 Pulse Rate from Sp O2 Sensor 74 Respiratory Rate 18 Blood Pressure 107/68 94/52 L 94/52 L Blood Pressure Laura n 81 66 66 Pulse Oximetry 99 99 Oxygen Delivery Me thod Room Air Room Air Sepsis Recent Feve r Within 48 Hours No Sepsis New/Unexpla ined Change in Men karoline Status No Sepsis Action Take n by Nursing No Action Required 07/18/24 16:00 07/18/24 16:48 07/18/24 17:06 Pulse Rate 72 73 76 Pulse Rate from Sp O2 Sensor 72 73 76 Respiratory Rate Blood Pressure 120/61 106/62 104/60 Blood Pressure Laura n 80 76 74 Pulse Oximetry 100 99 99 Oxygen Delivery Me thod Room Air Room Air Room Air Sepsis Recent Feve r Within 48 Hours Sepsis New/Unexpla ined Change in Men karolien Status Sepsis Action Take n by Nursing Physical Exam: Physical Exam GENERAL: Patient appears lethargic and ill-appearing. HENT: Exam performed. - Head: Normocephalic and atraumatic. - Right Ear: External ear normal. No mastoid erythema - Left Ear: External ear normal. No mastoid erythema - Mouth/Throat: The oropharynx is clear and moist. No trismus in the jaw. No dental abscesses or uvula swelling. No oropharyngeal exudate or tonsillar abscesses. EYES: Conjunctivae and EOM are normal. Pupils are equal, round, and reactive to light. Right eye exhibits no discharge. Left eye exhibits no discharge. No scleral icterus. NECK: Normal range of motion. Neck supple. No JVD present. CV: Normal rate, regular rhythm, normal heart sounds and intact distal pulses. There is no peripheral edema. Palpable radial pulses bue. PULM/CHEST: Effort normal and breath sounds normal. No respiratory distress. No stridor. He has no wheezes. He has no rales. ABD: The abdomen is soft. No fluid wave. Bowel sounds are normal. He has no distension. No mass is present. There is no tenderness. There is no rebound, no guarding. NEURO: He is alert and oriented to person, place, and time. Motor and sensation grossly intact. SKIN: Pale. Course Course 1414: The patient was evaluated in room B1. A complete history and physical exam was performed Cardiac monitoring: An order was placed for continuous cardiac monitoring. The monitor shows a rate of 70 with sinus rhythm interpreted by me 1620: Vital signs stable. Imaging shows no acute traumatic injury. Hemoglobin 8.2. Ammonia level stable. Patient's creatinine is up. Urinalysis concerning for infection Rocephin ordered for the patient. Patient be admitted to the [facility] hospitalist team. Administered Medications Discontinued Medications Ceftriaxone Sodium (Rocephin) 2,000 mg in 50 mls @ 100 mls/hr IV NOW STA Stop: 07/18/24 16:32 Last Infusion: 07/18/24 18:23 Dose: Infused Documented By: Admin: 07/18/24 16:18 Dose: 100 mls/hr Documented By: PAZ Medical Decision Making Laboratory Data Attestation: I reviewed the patient's lab results. 07/18/24 14:30 07/18/24 14:30 Lab Results 07/18/24 07/18/24 07/18/24 Range/Units 14:30 14:35 14:42 WBC 3.90 L (4.8-10.8) K/ul RBC 3.43 L (4.70-6.10) M/uL Hgb 8.2 L (14.0-18.0) g/dl POC Hgb 9.5 L (14.0-18.0) g/dl Hct 27.3 L (42.0-52.0) % POC Hct 28 L (42-52) % MCV 79.6 L (80.0-100.0) fL MCH 23.9 L (25.0-34.0) pg MCHC 30.0 L (32.0-36.0) g/dL RDW Std Deviation 55.2 H (36.4-46.3) fL RDW Coeff of Lencho 19.2 H (11.5-14.5) % Plt Count 144 (130-400) K/uL MPV 12.1 (9.4-12.4) fL Immature Gran % (Auto) 0.5 % Neut % (Auto) 72.8 % Lymph % (Auto) 10.3 % [place] % (Auto) 15.9 % Eos % (Auto) 0.0 % Baso % (Auto) 0.5 % Neut # (Auto) 2.84 (1.40-6.50) K/uL Lymph # (Auto) 0.40 L (1.20-3.40) K/uL [place] # (Auto) 0.62 H (0.11-0.59) K/uL Eos # (Auto) 0.00 (0.00-0.50) K/uL Baso # (Auto) 0.02 (0.00-0.20) K/uL Immature Gran # (Auto) 0.02 (0.01-0.20) K/uL PT 14.9 H (9.0-12.0) Seconds INR 1.4 H (0.9-1.1) APTT 36 H (21-31) Seconds PTT Ratio 1.3 VBG pH (7.36-7.41) VBG pCO2 (38-50) mmHg VBG pO2 mmHg VBG HCO3 mmol/L VBG O2 Saturation % VBG Base Excess mEq/L POC Sodium 136 (135-144) mmol/L Sodium 134 L (136-145) mmol/L POC Potassium 5.0 (3.3-5.0) mmol/L Potassium 5.0 (3.5-5.1) mmol/L POC Chloride 108 (101-112) mmol/L Chloride 109 H (98-107) mmol/L Carbon Dioxide 16 L (21-32) mmol/L POC Total CO2 16 L (24-31) mmol/L Anion Gap 9 (3-11) POC Anion Gap 18.0 (16-25) mmol/L POC BUN 64 H (7-18) mg/dl BUN 64 H (6-23) mg/dl Creatinine 4.24 H (0.6-1.4) mg/dl POC Creatinine 4.7 H* (0.6-1.3) mg/dl Est Cr Clr Drug Dosing 15.1 ml/min eGFR 13.70 BUN/Creatinine Ratio 15.1 (10-20) Glucose 99 (70-99(Fasting)) mg/dl POC Glucose (other) 94 (70-99) mg/dl Calcium 9.2 (8.6-10.3) mg/dl POC Ioniz Calcium Annetta 1.28 (1.12-1.32) mmol/l Magnesium 2.0 (1.7-2.4) mg/dl Total Bilirubin 1.4 H (0.2-1.0) mg/dl Direct Bilirubin 0.5 H (0-0.2) mg/dl AST 23 (13-39) U/L ALT 17 (7-52) U/L Alkaline Phosphatase 120 H (34-104) U/L Ammonia 23.0 (18-72) umol/L Troponin I High Sens 14.6 (0-20) pg/ml Total Protein 6.3 (6.0-8.3) gm/dl Albumin 3.2 L (3.4-5.0) gm/dl Lipase 37 (11-82) U/L Urine Color Urine Appearance (Clear) Urine pH (4.5-7.5) Ur Specific [place] (1.000-1.030) Urine Protein (Negative) Urine Glucose (UA) (Negative) Urine Ketones (Negative) Urine Blood (Negative) Urine Nitrite (Negative) Urine Bilirubin (Negative) Urine Urobilinogen (Negative) Ur Leukocyte Esterase (Negative) Urine WBC (Auto) (0-5) /hpf Urine RBC (Auto) (0-2) /hpf U Hyaline Cast (Auto) (0-2) /lpf U Epithel Cells (Auto) (0-2) /hpf Urine Bacteria (Auto) (None Seen) Urine Yeast (None Prsent) Blood Type A Positive Antibody Screen NEGATIVE 07/18/24 07/18/24 Range/Units 15:42 16:48 WBC (4.8-10.8) K/ul RBC (4.70-6.10) M/uL Hgb (14.0-18.0) g/dl POC Hgb (14.0-18.0) g/dl Hct (42.0-52.0) % POC Hct (42-52) % MCV (80.0-100.0) fL MCH (25.0-34.0) pg MCHC (32.0-36.0) g/dL RDW Std Deviation (36.4-46.3) fL RDW Coeff of Lencho (11.5-14.5) % Plt Count (130-400) K/uL MPV (9.4-12.4) fL Immature Gran % (Auto) % Neut % (Auto) % Lymph % (Auto) % [place] % (Auto) % Eos % (Auto) % Baso % (Auto) % Neut # (Auto) (1.40-6.50) K/uL Lymph # (Auto) (1.20-3.40) K/uL [place] # (Auto) (0.11-0.59) K/uL Eos # (Auto) (0.00-0.50) K/uL Baso # (Auto) (0.00-0.20) K/uL Immature Gran # (Auto) (0.01-0.20) K/uL PT (9.0-12.0) Seconds INR (0.9-1.1) APTT (21-31) Seconds PTT Ratio VBG pH 7.32 L (7.36-7.41) VBG pCO2 29 L (38-50) mmHg VBG pO2 28 mmHg VBG HCO3 15 mmol/L VBG O2 Saturation < 60.0 % VBG Base Excess -9.8 mEq/L POC Sodium (135-144) mmol/L Sodium (136-145) mmol/L POC Potassium (3.3-5.0) mmol/L Potassium (3.5-5.1) mmol/L POC Chloride (101-112) mmol/L Chloride (98-107) mmol/L Carbon Dioxide (21-32) mmol/L POC Total CO2 (24-31) mmol/L Anion Gap (3-11) POC Anion Gap (16-25) mmol/L POC BUN (7-18) mg/dl BUN (6-23) mg/dl Creatinine (0.6-1.4) mg/dl POC Creatinine (0.6-1.3) mg/dl Est Cr Clr Drug Dosing ml/min eGFR BUN/Creatinine Ratio (10-20) Glucose (70-99(Fasting)) mg/dl POC Glucose (other) (70-99) mg/dl Calcium (8.6-10.3) mg/dl POC Ioniz Calcium Annetta (1.12-1.32) mmol/l Magnesium (1.7-2.4) mg/dl Total Bilirubin (0.2-1.0) mg/dl Direct Bilirubin (0-0.2) mg/dl AST (13-39) U/L ALT (7-52) U/L Alkaline Phosphatase (34-104) U/L Ammonia (18-72) umol/L Troponin I High Sens (0-20) pg/ml Total Protein (6.0-8.3) gm/dl Albumin (3.4-5.0) gm/dl Lipase (11-82) U/L Urine Color Dark Yellow Urine Appearance Turbid A (Clear) Urine pH 5.0 (4.5-7.5) Ur Specific [place] 1.013 (1.000-1.030) Urine Protein 1+ H (Negative) Urine Glucose (UA) Negative (Negative) Urine Ketones Negative (Negative) Urine Blood 3+ H (Negative) Urine Nitrite Negative (Negative) Urine Bilirubin Negative (Negative) Urine Urobilinogen Negative (Negative) Ur Leukocyte Esterase 3+ H (Negative) Urine WBC (Auto) >50 H (0-5) /hpf Urine RBC (Auto) >20 H (0-2) /hpf U Hyaline Cast (Auto) >20 H (0-2) /lpf U Epithel Cells (Auto) >20 H (0-2) /hpf Urine Bacteria (Auto) 4+ H (None Seen) Urine Yeast Present A (None Prsent) Blood Type Antibody Screen Imaging Data Attestation: I personally reviewed and interpreted this imaging study as follows: My Impression: Chest x-ray negative. Airway clear. No pneumothorax. No consolidation. No cardiomegaly or cephalization.. No free air under the diaphragm. No fractures of the skeletal structures. Radiologist's Impression: Cervical Spine CT 07/18/24 14:26 CT cervical spine wo con CT DOSE: 2591.36 mGy.cm CLINICAL HISTORY: 78 years-old Male with trauma. Acute head and neck injury status post fall COMPARISON: Head CT of same day TECHNIQUE: Multiple axial CT images of the cervical spine were obtained without contrast. A dose lowering technique was utilized adhering to the principles of ALARA. FINDINGS: Mild multilevel intervertebral disc space narrowing. Moderate disc space narrowing C6-C7. Cmus-rh-kuyoofij and spondylotic spurring with multilevel facet arthrosis, severe on the left at C5-C6. Moderate degeneration at C1-C2. Multilevel neural foraminal narrowing, suboptimally assessed by CT technique. The cervical soft tissues appear unremarkable. Small calcified foci noted within the thyroid. The visualized lung apices appear clear. IMPRESSION: No acute cervical spine fracture or subluxation. ACT 112: Negative or not required by law. The above report was generated using voice recognition software. It may contain grammatical, syntax or spelling errors. Electronically signed by: Zackary Roman M.D. 07/18/2024 3:25 PM Chest X-Ray 07/18/24 14:26 XR chest 1V portable CLINICAL HISTORY: trauma COMPARISON STUDY: 08/27/2022 FINDINGS: Stable CABG. Heart size and pulmonary vasculature are normal. No effusion, consolidation, or pneumothorax. No acute osseous finding seen. IMPRESSION: No acute findings. ACT 112: Negative or not required by law. Electronically signed by: Jose Sorensen M.D. 07/18/2024 3:[address] 07/18/24 14:26 CT OF THE HEAD WITHOUT CONTRAST CLINICAL HISTORY: trauma COMPARISON STUDY: No previous studies for comparison. TECHNIQUE: Helical axial images of the head were obtained without IV contrast. Automated exposure control was utilized for the study. A dose lowering technique was utilized adhering to the principles of ALARA. FINDINGS: No acute intracranial hemorrhage, midline shift or mass effect is present. White matter hypodensity suggests small vessel disease The ventricular system is unremarkable. The basal cisterns are patent. No extra-axial collections are present. There are no findings to suggest acute dural sinus thrombosis or acute territorial infarct. No significant calvarial abnormalities are present. Visualized portions of the sinuses and mastoid air cells are clear. IMPRESSION: 1. No acute intracranial findings. 2. No calvarial fractures. ACT 112: Negative or not required by law. Electronically signed by: Dominic Beth M.D. 07/18/2024 3:25 PM Pelvis X-Ray 07/18/24 14:26 XR pelvis 1-2V routine CLINICAL HISTORY: trauma COMPARISON: 03/23/2024 FINDINGS: There are stable soft tissue calcifications or foreign bodies in the inguinal regions bilaterally. No fracture or dislocation. Hip joint spaces are maintained. IMPRESSION: No fracture seen. ACT 112: Negative or not required by law. Electronically signed by: Jose Sorensen M.D. 07/18/2024 3:15 PM Abdomen/Pelvis CT 07/18/24 14:37 CT OF THE ABDOMEN AND PELVIS WITHOUT CONTRAST CLINICAL HISTORY: fall COMPARISON STUDY: CT of the abdomen and pelvis March 23, 2024. TECHNIQUE: Axial images of the abdomen and pelvis were obtained without IV contrast. Images were reviewed in the axial, sagittal, and coronal planes. Automated exposure control was utilized for the study. A dose lowering technique was utilized adhering to the principles of ALARA. FINDINGS: Visualized portions of the lung bases are unremarkable. No hemoperitoneum or pneumoperitoneum is present. Large volume abdominal and pelvic ascites has increased when compared to prior CT. Evaluation of the solid abdominal viscera is suboptimal on this unenhanced exam. There is no evidence for traumatic injury to the liver, spleen, adrenal glands, kidneys or pancreas. There are calcified granulomas within liver and spleen. The liver is cirrhotic. Splenomegaly is unchanged. There is no hydronephrosis. There is no evidence for a bowel obstruction. The bladder is distended. Ascites within bilateral inguinal hernias is present. There is no evidence for a bowel obstruction. Note is made of colonic diverticulosis without evidence for acute diverticulitis. No acute lumbar spine, pelvic or hip fractures are present. IMPRESSION: 1. No acute traumatic findings within the abdomen or pelvis on unenhanced exam. 2. Cirrhotic liver. Large volume ascites. Stable splenomegaly. 3. Colonic diverticulosis. No evidence for acute diverticulitis. 4. No acute fractures. ACT 112: Negative or not required by law. Electronically signed by: Dominic Beth M.D. 07/18/2024 3:31 PM ECG Data Attestation: I personally reviewed and interpreted this ECG as follows: Rate (beats per minute): 74 Rhythm: normal sinus Findings: + 1st degree AV block and + RBBB; no ST depression, no ST elevation or no prolonged QT MDM Narrative 1414: The patient was evaluated in room B1. A complete history and physical exam was performed Cardiac monitoring: An order was placed for continuous cardiac monitoring. The monitor shows a rate of 70 with sinus rhythm interpreted by me 1620: Vital signs stable. Imaging shows no acute traumatic injury. Hemoglobin 8.2. Ammonia level stable. Patient's creatinine is up. Urinalysis concerning for infection Rocephin ordered for the patient. [facility] & Plan DELIA (acute kidney injury), Acute UTI Discharge Plan Visit Data Chief Complaint: Abnormal Labs/Diagnostic Testing Stated Complaint: ABNORMAL BLOOD WORK ED Provider: Ty August Discharge Problem: DELIA (acute kidney injury), Acute UTI Patient Disposition: Admitted As Inpatient Forms Stand Alone Forms: My [facility] Prescriptions Prescriptions: No Action nitroglycerin [Nitrostat] 0.4 mg Tablet, Sublingual 0.4 mg sublingual DIRECTED PRN (Reason: Chest Pain) Patient Comments: pt states has not had to use atorvastatin 40 mg Tablet 40 mg PO QAM Qty: 30 0RF ondansetron HCl 4 mg Tablet 4 mg PO Q8H PRN (Reason: Nausea) Qty: 10 0RF metoprolol succinate 100 mg Tablet Extended Release 24 Hr 100 mg PO BID 30 Days Qty: 60 0RF aspirin 81 mg tablet,delayed release (DR/EC) 81 mg PO 3XWK 30 Days Qty: 14 0RF Rx Instructions: MON, WED, & FRI. levothyroxine 88 mcg Tablet 88 mcg PO DAILYBB Qty: 30 0RF ascorbic acid (vitamin C) [Vitamin C] 500 mg Tablet 500 mg PO QAM Qty: 30 0RF furosemide 20 mg tablet 20 mg PO QAM Qty: 30 0RF spironolactone 50 mg tablet 50 mg PO DAILY Qty: 30 0RF insulin glargine 100 unit/mL (3 mL) Insulin Pen 38 unit SUBCUT HS Qty: 15 0RF cholecalciferol (vitamin D3) [Vitamin D3] 50 mcg (2,000 unit) Capsule 50 mcg PO QAM Qty: 30 0RF Eliquis 5 mg tablet 5 mg PO BID Qty: 60 0RF Trulicity 1.5 mg/0.5 mL Pen Injector 3 mg SUBCUT WK 30 Days Qty: 2 0RF Rx Instructions: TAKES ON SUNDAY EVENING Referrals Referrals: Lia Meadows MD [Primary Care Provider] -
[2024-07-18 15:11] LABS: Troponin I High Sensitivity 14.6 pg/ml (0-20)
[2024-07-18 15:21] LABS: INR 1.4 (0.9-1.1); Partial Thromboplastin Ratio 1.3; Partial Thromboplastin Time 36 Seconds (21-31); Prothrombin Time 14.9 Seconds (9.0-12.0)
[2024-07-18 15:59] LABS: Appearance Urine Turbid (Clear); Bacteria Urine Automated 4+ (None Seen); Bilirubin Urine Negative (Negative); Blood Urine 3+ (Negative); Cast Urine Automated >20 /lpf (0-2); Color Urine Dark Yellow; Epithelial Cell Urine Auto >20 /hpf (0-2); Glucose Urine UA Negative (Negative); Ketones Urine Negative (Negative); Leukocyte Esterase Urine 3+ (Negative); Nitrite Urine Negative (Negative); Protein Urine 1+ (Negative); RBC Urine Automated >20 /hpf (0-2); Specific Gravity Urine 1.013 (1.000-1.030); Urobilinogen Urine Negative (Negative); WBC Urine Automated >50 /hpf (0-5)
[2024-07-18] MEDS: cefTRIAXone SODIUM 2,000 MG/50 ML BAG IV STA (16:18)
--- NOTE | 2024-07-18 16:18 | CT Scan Report ---
CT OF THE HEAD WITHOUT CONTRAST CLINICAL HISTORY: trauma COMPARISON STUDY: No previous studies for comparison. TECHNIQUE: Helical axial images of the head were obtained without IV contrast. Automated exposure con trol was utilized for the study. A dose lowering technique was utilized adhering to the principles o f ALARA. FINDINGS: No acute intracranial hemorrhage, midline shift or mass effect is present. White matter hyp odensity suggests small vessel disease The ventricular system is unremarkable. The basal cisterns are patent. No extra-axial collections are present. There are no findings to suggest acute dural sinus t hrombosis or acute territorial infarct. No significant calvarial abnormalities are present. Visualize d portions of the sinuses and mastoid air cells are clear. IMPRESSION: 1. No acute intracranial findings. 2. No calvarial fractures. ACT 112: Negative or not required by law. Electronically signed by: Dominic Beth M.D. 07/18/2024 3:25 PM
--- NOTE | 2024-07-18 16:18 | CT Scan Report ---
CT cervical spine wo con CT DOSE: 2591.36 mGy.cm CLINICAL HISTORY: 78 years-old Male with trauma. Acute head and neck injury status post fall COMPARISON: Head CT of same day TECHNIQUE: Multiple axial CT images of the cervical spine were obtained without contrast. A dose low ering technique was utilized adhering to the principles of ALARA. FINDINGS: Mild multilevel intervertebral disc space narrowing. Moderate disc space narrowing C6-C7. M sch-bi-augehmqk and spondylotic spurring with multilevel facet arthrosis, severe on the left at C5-C6 . Moderate degeneration at C1-C2. Multilevel neural foraminal narrowing, suboptimally assessed by CT technique. The cervical soft tissues appear unremarkable. Small calcified foci noted within the thyroid. The vis ualized lung apices appear clear. IMPRESSION: No acute cervical spine fracture or subluxation. ACT 112: Negative or not required by law. The above report was generated using voice recognition software. It may contain grammatical, syntax o r spelling errors. Electronically signed by: Zackary Roman M.D. 07/18/2024 3:25 PM
--- NOTE | 2024-07-18 16:18 | XRay Report ---
XR chest 1V portable CLINICAL HISTORY: trauma COMPARISON STUDY: 08/27/2022 FINDINGS: Stable CABG. Heart size and pulmonary vasculature are normal. No effusion, consolidation, o r pneumothorax. No acute osseous finding seen. IMPRESSION: No acute findings. ACT 112: Negative or not required by law. Electronically signed by: Jose Sorensen M.D. 07/18/2024 3:17 PM
--- NOTE | 2024-07-18 16:18 | CT Scan Report ---
CT OF THE ABDOMEN AND PELVIS WITHOUT CONTRAST CLINICAL HISTORY: fall COMPARISON STUDY: CT of the abdomen and pelvis March 23, 2024. TECHNIQUE: Axial images of the abdomen and pelvis were obtained without IV contrast. Images were revi ewed in the axial, sagittal, and coronal planes. Automated exposure control was utilized for the gwyn dy. A dose lowering technique was utilized adhering to the principles of ALARA. FINDINGS: Visualized portions of the lung bases are unremarkable. No hemoperitoneum or pneumoperitone um is present. Large volume abdominal and pelvic ascites has increased when compared to prior CT. Cecily luation of the solid abdominal viscera is suboptimal on this unenhanced exam. There is no evidence fo r traumatic injury to the liver, spleen, adrenal glands, kidneys or pancreas. There are calcified gra nulomas within liver and spleen. The liver is cirrhotic. Splenomegaly is unchanged. There is no hydro nephrosis. There is no evidence for a bowel obstruction. The bladder is distended. Ascites within hong ateral inguinal hernias is present. There is no evidence for a bowel obstruction. Note is made of col onic diverticulosis without evidence for acute diverticulitis. No acute lumbar spine, pelvic or hip f ractures are present. IMPRESSION: 1. No acute traumatic findings within the abdomen or pelvis on unenhanced exam. 2. Cirrhotic liver. Large volume ascites. Stable splenomegaly. 3. Colonic diverticulosis. No evidence for acute diverticulitis. 4. No acute fractures. ACT 112: Negative or not required by law. Electronically signed by: Dominic Beth M.D. 07/18/2024 3:31 PM
--- NOTE | 2024-07-18 16:18 | XRay Report ---
XR pelvis 1-2V routine CLINICAL HISTORY: trauma COMPARISON: 03/23/2024 FINDINGS: There are stable soft tissue calcifications or foreign bodies in the inguinal regions bila terally. No fracture or dislocation. Hip joint spaces are maintained. IMPRESSION: No fracture seen. ACT 112: Negative or not required by law. Electronically signed by: Jose Sorensen M.D. 07/18/2024 3:15 PM
--- NOTE | 2024-07-18 16:43 | History & Physical Report ---
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 -Cr. baseline of 1.7, this morning was 4.1 at [facility] center, and 4.2 in the ER. - Last dose of eliquis was at 10am. HOLD - Previous paracentesis had taken 5 L off at once, will need to discuss with GI regarding amount of fluid to remove, will need albumin IV for 3rd spacing. -Will discuss with nephro regarding diuretic administration - Protonix IV BID Acute on Chronic CKD 3 baseline cr 1.7-1.8 -Cr. baseline of 1.7, this morning was 4.1 at cancer center, and 4.2 in the ER. - Consult Nephrology - home meds: lasix and spironolactone - diuresis per nephro Heart failure with recovered EF iso ischemic cardiomyopathy LVEF 30% -->55-60% 2022 CAD status post CABG x3 (PAEZ to LAD, AO to RCA, AO to OM1 05/2021) * Multivessel CAD including mid RCA 90% lesion with mild diffuse disease, 80% occlusion of the proximal LAD with heavily calcified lesion, and 100% MANAGER INTEL of left circumflex with pvsz-qu-vtyj and pqjvx-kk-bfzj collaterals, per cath [facility] cardiac history, with recovered EF% Prior use of KATHI/ARB dc'd due to CKD/AKIContinue Metoprolol succinate 100mg BID -Will make NPO, once allowed food use 2g sodium diet - Daily weights. -03/25/24: Echo: Mild concentric LVH, EF 55 to 60%, grade 1 Diastolic dysfunction, mild to moderate mitral regurgitation -Continue statin Post op afib Hx of CVA -Home eliquis and aspirin on HOLD for possible GI bleed -Eliquis was resumed with good tolerance -Home ASA resumed on discharge T2DM, insulin dependent -last a1c 6.4 ISS with accuchecks, at home on trulicity Monitor and avoid hypoglycemia Hypothyroidism continue synthroid Palliative care consult. Had an outpatient palliative consult scheduled approximately 1 month ago but the patient canceled it as son was out of town. Son would like to be present for this goals of care conversation if possible. He is requesting pain management, sleep, wanting to eat what ever he wishes, and would likely benefit from discussion regarding comfort care/hospice. The son, Oscar agrees that these requests are more along the line of the patient's current wishes. He does want therapeutic paracentesis as he has improved pain and discomfort when this was done during last admission. DVT ppx: teds, scds, hold Eliquis for suspected GI bleed Line: PIV x 2 FEN/GI: NPO CODE: FULL Dispo: From home, likely to remain in the hospital x 1-2 days History of Present Illness Chief Complaint: Falls, elevated Cr. Primary Care Provider: Lia Meadows MD This is a 78-year-old male with complex significant past medical history of CAD status post CABG x3 (PAEZ to LAD, AO to RCA, AO to OM1 05/2021), ischemic cardiomyopathy LVEF 30% postop CABG, PAF postoperative CABG, history of multiple small CVA involving left anterior frontal lobe and left posterior temporal lobe following surgery, RBBB, HTN, HLD, T2DM, hypothyroidism, mild aortic sclerosis, mild mitral valve leaflet prolapse with mild MR, history of moderate size left pleural effusion post CABG, status post thoracentesis with recurrent left pleural effusion requiring multiple hospitalizations status post thoracic duct embolization 09/06/[address] 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 Aidan Batres. He was over at the cancer center today for routine appointment with Dr. Batres. He is reporting breastbone area pain intermittently, not currently. He denies black tarry stools. He admits to having bright red blood streaking on paper after wiping recently. He does endorse nausea, poor appetite and uses zofran regularly. Pt denies diarrhea, is supposed to take lactulose 3x daily but stopped this 3days ago and hasn't moved his bowels in about 3 days. Does have abdominal distension chronically, unknown if any changes in weight. Pt reports issues with urination, straining, weak stream but denies dysuria. Pt admits to fall about 10 days ago and hit the left arm scraping the skin off. Fell again yesterday and again last evening and had more bleeding after the scab ripped off from that already injured area on the arm. Pts biggest complaint today is regarding poor sleep, feels that he cannot get any rest for the past 2 years. Previously used benadrly HS but was told he shouldn't by previous doctor. Was given a script for trazodone but was afraid to try it. Son, Oscar, is present and supports the history. On admission, pt Cr. is 4.24, BUN 64. WBC 3.9, Hgb 8.2, plt 144, INR 1.4. UA appears to be grossly infected today. Allergies Allergy/AdvReac Type Severity Reaction Status Date / Time Sulfa (Sulfonamide Allergy Unknown CHILDHOOD Verified 09/13/23 08:32 Antibiotics) ALLERGY--CAN'T REMEMBER tramadol AdvReac Severe SEVERE Verified 09/13/23 08:32 VOMITING omeprazole AdvReac Intermediate PER PT Verified 09/13/23 08:32 "DID THE OPPOSITE, MADE ME WORSE". Home Medications Medication Instructions Recorded Confirmed Type nitroglycerin 0.4 mg sublingual 0.4 mg sublingual DIRECTED PRN 11/08/21 07/18/24 History tablet (Nitrostat) Chest Pain apixaban 5 mg tablet (Eliquis) 5 mg PO BID #60 tabs 04/02/24 07/18/24 Rx ascorbic acid (vitamin C) 500 mg 500 mg PO QAM #30 tabs 04/02/24 07/18/24 Rx tablet (Vitamin C) aspirin 81 mg tablet,delayed 81 mg PO 3XWK 30 days #14 tabs 04/02/24 07/18/24 Rx release atorvastatin 40 mg tablet 40 mg PO QAM #30 tabs 04/02/24 07/18/24 Rx cholecalciferol (vitamin D3) 50 50 mcg PO QAM #30 caps 04/02/24 07/18/24 Rx mcg (2,000 unit) capsule (Vitamin D3) dulaglutide 1.5 mg/0.5 mL 3 mg subcut WK 1 month #2 mL 04/02/24 07/18/24 Rx subcutaneous pen injector (Trulicity) furosemide 20 mg tablet 20 mg PO QAM #30 tabs 04/02/24 07/18/24 Rx insulin glargine 100 unit/mL (3 38 unit (0.38 mL) subcut HS #15 mL 04/02/24 07/18/24 Rx mL) subcutaneous pen levothyroxine 88 mcg tablet 88 mcg PO DAILYBB #30 tabs 04/02/24 07/18/24 Rx metoprolol succinate 100 mg 100 mg PO BID 30 days #60 tabs 04/02/24 07/18/24 Rx tablet,extended release 24 hr ondansetron HCl 4 mg tablet 4 mg PO Q8H PRN Nausea #10 tabs 04/02/24 07/18/24 Rx spironolactone 50 mg tablet 50 mg PO DAILY #30 tabs 04/02/24 07/18/24 Rx Past Med/Surg History Problem List (Updated 07/18/24 @ 16:38 by Eileen Boyle PA-C) 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 Acute renal failure Acute on chronic anemia Symptomatic anemia (Acute) Acute blood loss anemia GIB (gastrointestinal bleeding) BPH NOS w ur obs/LUTS Encounter for pre-operative examination Calculus of proximal right ureter Hydronephrosis (Acute) Renal colic (Acute) Acute urinary retention (Acute) Leukopenia (Acute) Pancytopenia 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 (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) use of antibiotics 2 gm bid amoxicillin for empyema through November 2022-- completed amoxicillin now started on doxycycline Abdominal pain (Acute) Medical History Cirrhosis of liver with ascites Generalized weakness DELIA (acute kidney injury) Acute GI bleeding Esophageal varices Incomplete emptying of bladder Cirrhosis of liver with ascites states has to have a paracentesis done CAD (coronary artery disease) Multivessel CAD including mid RCA 90% lesion with mild diffuse disease, 80% occlusion of the proximal LAD with heavily calcified lesion, and 100% MANAGER [employer]EL of left circumflex with azvj-jz-ogsk and oltxj-sa-uyjt collaterals, per [place]/27/20[place] [facility] [place] post CABG x3 (PAEZ to LAD, AO to RCA, AO to OM1) with and the graphic saphenous vein harvest, 05/30/2021 DELIA (acute kidney injury) Chylothorax Ischemic cardiomyopathy LVEF 30% post CABG; GRADE I diastolic dysfunction, NYHA class 2 Hypothyroid Diabetes mellitus IDDM Hyperlipidemia Hypertension Carotid artery stenosis Atrial fibrillation post operative CABG 2020, denies current A fib 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 (current) use of anticoagulants Osteoarthritis History of kidney stones stents placed and removed Stroke patient denies CKD (chronic kidney disease) stage 3, GFR 30-59 ml/min TIA (transient ischemic attack) in [place] prior to 2020 AND post operatively [place] [facility] 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, months of abtx---no antibiotics currently Surgical History Hx of cystoscopy w/ stent - 09/20/22 Hx of cardiac catheterization 05/2021 Hx of colonoscopy History of esophagogastroduodenoscopy (EGD) Hx of chest tube placement Hx of cholecystectomy History of coronary artery bypass graft CABG x 3 (PAEZ -LAD; AO-RCA; AO-OM1 w/ graphic SVG on 05/30/2021 Family History Other Heart disease Social History Smoking Status: Former smoker Tobacco Type: Cigarettes packs per day: 1; Cigarettes Per Day: quit ~ 30 yrs ago; Second Hand Exposure: No; Do You Dip or Chew Tobacco: No; Hx Alcohol Use: No Hx Substance Use: No Preferred Language: Irish Communication Ability: Effective Visual Impairment: No Limitations Supervising Architect Required: No Beliefs That Will Affect Care: None Current Living Situation: Spouse Feels Safe at Home: Yes Assistive Devices: None Review of Systems Constitutional: Constitutional: No fever, sweats or chills, + insomnia, Eyes: No diplopia, no worsening or blurred vision ENT: normal hearing, no trouble swallowing Respiratory: No cough, sputum, dyspnea at rest or on exertion Cardiovascular: No chest pain, tightness or palpitations Abdomen: + as per HPI, + nausea intermittently, epigastric/upper abdomen pain, nausea, no vomiting, no diarrhea or constipation, last BM was 3 days ago. Musculoskeletal: No joint pain, calf pain, swelling Neurologic: + generalized weakness, numbness/tingling, or balance problems Psychiatric: No anxiety or depression, + intermittently tearful during exam Skin: No rash or itch Physical Exam Physical Exam: Please refer to physical by attending addendum. Results & Data Results & Data Vital Signs (Past 12 Hours) Vital Signs Pulse Resp BP Pulse Ox O2 Del Method 07/18/24 14:07 93 H 18 107/68 99 Room Air Laboratory Results 07/18/24 16:09 Aerobic Blood Culture - Pending Blood Anaerobic Blood Culture - Pending 07/18/24 16:23 Aerobic Blood Culture - Pending Blood Anaerobic Blood Culture - Pending 07/18/24 15:42 Urine Culture - Pending Urine,Straight Cath 07/18/24 07/18/24 07/18/24 15:42 14:42 14:35 WBC RBC Hgb POC Hgb 9.5 L Hct POC Hct 28 L MCV MCH MCHC RDW Std Deviation RDW Coeff of Lencho Plt Count MPV Immature Gran % (Auto) Neut % (Auto) Lymph % (Auto) Larue % (Auto) Eos % (Auto) Baso % (Auto) Neut # (Auto) Lymph # (Auto) Larue # (Auto) Eos # (Auto) Baso # (Auto) Immature Gran # (Auto) PT INR APTT PTT Ratio POC Sodium 136 Sodium POC Potassium 5.0 Potassium POC Chloride 108 Chloride Carbon Dioxide POC Total CO2 16 L Anion Gap POC Anion Gap 18.0 POC BUN 64 H BUN Creatinine POC Creatinine 4.7 H* Est Cr Clr Drug Dosing eGFR BUN/Creatinine Ratio Glucose POC Glucose (other) 94 Calcium POC Ioniz Calcium Annetta 1.28 Magnesium Total Bilirubin Direct Bilirubin AST ALT Alkaline Phosphatase Ammonia Troponin I High Sens Total Protein Albumin Lipase Urine Color Dark Yellow Urine Appearance Turbid A Urine pH 5.0 Ur Specific [place] 1.013 Urine Protein 1+ H Urine Glucose (UA) Negative Urine Ketones Negative Urine Blood 3+ H Urine Nitrite Negative Urine Bilirubin Negative Urine Urobilinogen Negative Ur Leukocyte Esterase 3+ H Urine WBC (Auto) >50 H Urine RBC (Auto) >20 H U Hyaline Cast (Auto) >20 H U Epithel Cells (Auto) >20 H Urine Bacteria (Auto) 4+ H Urine Yeast Present A Blood Type A Positive Antibody Screen NEGATIVE 07/18/24 14:30 WBC 3.90 L RBC 3.43 L Hgb 8.2 L POC Hgb Hct 27.3 L POC Hct MCV 79.6 L MCH 23.9 L MCHC 30.0 L RDW Std Deviation 55.2 H RDW Coeff of Lencho 19.2 H Plt Count 144 MPV 12.1 Immature Gran % (Auto) 0.5 Neut % (Auto) 72.8 Lymph % (Auto) 10.3 Larue % (Auto) 15.9 Eos % (Auto) 0.0 Baso % (Auto) 0.5 Neut # (Auto) 2.84 Lymph # (Auto) 0.40 L Larue # (Auto) 0.62 H Eos # (Auto) 0.00 Baso # (Auto) 0.02 Immature Gran # (Auto) 0.02 PT 14.9 H INR 1.4 H APTT 36 H PTT Ratio 1.3 POC Sodium Sodium 134 L POC Potassium Potassium 5.0 POC Chloride Chloride 109 H Carbon Dioxide 16 L POC Total CO2 Anion Gap 9 POC Anion Gap POC BUN BUN 64 H Creatinine 4.24 H POC Creatinine Est Cr Clr Drug Dosing 15.1 eGFR 13.70 BUN/Creatinine Ratio 15.1 Glucose 99 POC Glucose (other) Calcium 9.2 POC Ioniz Calcium Annetta Magnesium 2.0 Total Bilirubin 1.4 H Direct Bilirubin 0.5 H AST 23 ALT 17 Alkaline Phosphatase 120 H Ammonia 23.0 Troponin I High Sens 14.6 Total Protein 6.3 Albumin 3.2 L Lipase 37 Urine Color Urine Appearance Urine pH Ur Specific [place] Urine Protein Urine Glucose (UA) Urine Ketones Urine Blood Urine Nitrite Urine Bilirubin Urine Urobilinogen Ur Leukocyte Esterase Urine WBC (Auto) Urine RBC (Auto) U Hyaline Cast (Auto) U Epithel Cells (Auto) Urine Bacteria (Auto) Urine Yeast Blood Type Antibody Screen Diagnostic Findings Cervical Spine CT 07/18/24 14:26 CT cervical spine wo con CT DOSE: 2591.36 mGy.cm CLINICAL HISTORY: 78 years-old Male with trauma. Acute head and neck injury status post fall COMPARISON: Head CT of same day TECHNIQUE: Multiple axial CT images of the cervical spine were obtained without contrast. A dose lowering technique was utilized adhering to the principles of ALARA. FINDINGS: Mild multilevel intervertebral disc space narrowing. Moderate disc space narrowing C6-C7. Uiev-ab-iotghyop and spondylotic spurring with multilevel facet arthrosis, severe on the left at C5-C6. Moderate degeneration at C1-C2. Multilevel neural foraminal narrowing, suboptimally assessed by CT technique. The cervical soft tissues appear unremarkable. Small calcified foci noted within the thyroid. The visualized lung apices appear clear. IMPRESSION: No acute cervical spine fracture or subluxation. ACT 112: Negative or not required by law. The above report was generated using voice recognition software. It may contain grammatical, syntax or spelling errors. Electronically signed by: Zackary Roman M.D. 07/18/2024 3:25 PM Chest X-Ray 07/18/24 14:26 XR chest 1V portable CLINICAL HISTORY: trauma COMPARISON STUDY: 08/27/2022 FINDINGS: Stable CABG. Heart size and pulmonary vasculature are normal. No effusion, consolidation, or pneumothorax. No acute osseous finding seen. IMPRESSION: No acute findings. ACT 112: Negative or not required by law. Electronically signed by: Jose Sorensen M.D. 07/18/2024 3:[address] 07/18/24 14:26 CT OF THE HEAD WITHOUT CONTRAST CLINICAL HISTORY: trauma COMPARISON STUDY: No previous studies for comparison. TECHNIQUE: Helical axial images of the head were obtained without IV contrast. Automated exposure control was utilized for the study. A dose lowering technique was utilized adhering to the principles of ALARA. FINDINGS: No acute intracranial hemorrhage, midline shift or mass effect is present. White matter hypodensity suggests small vessel disease The ventricular system is unremarkable. The basal cisterns are patent. No extra-axial collections are present. There are no findings to suggest acute dural sinus thrombosis or acute territorial infarct. No significant calvarial abnormalities are present. Visualized portions of the sinuses and mastoid air cells are clear. IMPRESSION: 1. No acute intracranial findings. 2. No calvarial fractures. ACT 112: Negative or not required by law. Electronically signed by: Dominic Beth M.D. 07/18/2024 3:25 PM Pelvis X-Ray 07/18/24 14:26 XR pelvis 1-2V routine CLINICAL HISTORY: trauma COMPARISON: 03/23/2024 FINDINGS: There are stable soft tissue calcifications or foreign bodies in the inguinal regions bilaterally. No fracture or dislocation. Hip joint spaces are maintained. IMPRESSION: No fracture seen. ACT 112: Negative or not required by law. Electronically signed by: Jose Sorensen M.D. 07/18/2024 3:15 PM Abdomen/Pelvis CT 07/18/24 14:37 CT OF THE ABDOMEN AND PELVIS WITHOUT CONTRAST CLINICAL HISTORY: fall COMPARISON STUDY: CT of the abdomen and pelvis March 23, 2024. TECHNIQUE: Axial images of the abdomen and pelvis were obtained without IV contrast. Images were reviewed in the axial, sagittal, and coronal planes. Automated exposure control was utilized for the study. A dose lowering technique was utilized adhering to the principles of ALARA. FINDINGS: Visualized portions of the lung bases are unremarkable. No hemoperitoneum or pneumoperitoneum is present. Large volume abdominal and pelvic ascites has increased when compared to prior CT. Evaluation of the solid abdominal viscera is suboptimal on this unenhanced exam. There is no evidence for traumatic injury to the liver, spleen, adrenal glands, kidneys or pancreas. There are calcified granulomas within liver and spleen. The liver is cirrhotic. Splenomegaly is unchanged. There is no hydronephrosis. There is no evidence for a bowel obstruction. The bladder is distended. Ascites within bilateral inguinal hernias is present. There is no evidence for a bowel obstruction. Note is made of colonic diverticulosis without evidence for acute diverticulitis. No acute lumbar spine, pelvic or hip fractures are present. IMPRESSION: 1. No acute traumatic findings within the abdomen or pelvis on unenhanced exam. 2. Cirrhotic liver. Large volume ascites. Stable splenomegaly. 3. Colonic diverticulosis. No evidence for acute diverticulitis. 4. No acute fractures. ACT 112: Negative or not required by law. Electronically signed by: Dominic Beth M.D. 07/18/2024 3:31 PM Code Status & VTE Plan Code Status DNR/DNI discussed with pt and family Supervising Physician Co-Signing Physician Notes Attending Addendum: Case reviewed with the advanced practitioner. I have personally performed a history and physical examination on the patient. I have reviewed the advanced practitioner's documentation on the date of service referenced in note, and I agree with, and take responsibility for the plan of care. please refer to her notes for full details patient seen and examined, records reviewed by myself as well on exam, patient seen resting in bed, awake, alert, oriented x 3 states he feels weak, unable to do activities of daily living, has been falling frequently at home has intermittent central abdominal pain no hematemesis, melena, but does report intermittent blood tinge when wiping no chest pain, dyspnea, palpitations, dizziness no fever/chills unable to fall asleep for months, requesting for sleep aid no other symptoms VS noted and reviewed General- oriented x 3, not in distress, speaks in sentences with no effort or accessory muscle use weak, frail Head- atraumatic Eyes- PERRL, EOMI, anicteric ENT- oropharynx clear Neck- supple, no JVD, no adenopathy, no thyromegaly; carotids +2/2, no bruits appreciated Lungs- clear to auscultation bilaterally, no rales/wheezes Heart- normal rate, regular rhythm; (+) grade 3/6 holosystolic murmur, no gallop, no rub appreciated Abdomen- normal bowel sounds, moderately distended, soft, nontender Extremities- grade 1 lower extremity edema, no calf tenderness; peripheral pulses intact (+) small BL knee abrasions Neuro- alert, oriented x 3; CN 2-12 grossly intact; motor 5/5 bilatera lly;sensation 100% on all extremities; no other gross focal neurologic deficits Skin- warm & dry all labs, imaging noted and reviewed ASSESSMENT AND PLAN> DECOMPENSATED LIVER CIRRHOSIS ACUTE ON CHRONIC ANEMIA- POSSIBLE BLEEDING VARICES, HISTORY OF PORTAL GASTROPATHY Hg 10--> 8 denies melena, has intermittent hematochezia hold ASA, Eliquis Protonix IV BID NPO GI consulted may not be a good candidate for senior living anticoagulation anymore given recurrent anemia LARGE VOLUME ASCITES will likely need Paracentesis, with albumin GI consulted ACUTE RENAL FAILURE ON CKD , POSSIBLE HEPATORENAL SYNDROME crea 1.6 --> 4.2, HCO3 16, PH 7.32, CO2 29, HCO3 15 on Lasix, Spironolactone at home Nephro consulted, awaiting call back discussed with patient and son, they would like to have a consultation with Paliative Care Service other diagnoses and plan of care as per advanced practitioner's notes Hugo Castro MD
[2024-07-18 16:55] LABS: Base Excess VBG -9.8 mEq/L; HCO3 VBG 15 mmol/L; Oxygen Saturation VBG < 60.0 %; PCO2 VBG 29 mmHg (38-50); PO2 VBG 28 mmHg; pH VBG 7.32 (7.36-7.41)
[2024-07-18] MEDS ORDERED: CARBOHYDRATES FOR HYPOGLYCEMIA PO PRN (21:32)
[2024-07-18] MEDS ORDERED: DEXTROSE 50% 50 ML SYRINGE IV PRN (21:32)
[2024-07-18] MEDS ORDERED: GLUCAGON FOR INJ 1 MG VIAL SQ PRN (21:32)
[2024-07-18] MEDS ORDERED: GLUCOSE 40% GEL 15 GM TUBE PO PRN (21:32)
[2024-07-18] MEDS ORDERED: diphenhydrAMINE Capsule 25 MG CAP PO PRN (21:32)
[2024-07-18] MEDS ORDERED: GLUCOSE 10 TAB/TUBE PO PRN (21:32)
[2024-07-18] MEDS ORDERED: ONDANSETRON INJ 2 MG/ML 2 ML VIAL IV PRN (21:32)
[2024-07-18] MEDS: INSULIN ASPART PER UNIT CHARGE SC SCH (21:50)
[2024-07-18] MEDS: oxyCODONE HCL IR 5 MG TAB (IMMEDIATE RELEASE) PO PRN (21:55)
[2024-07-18] MEDS: PANTOprazole 40 MG/10 ML SYR IV SCH (22:00)
--- OUTSIDE RECORDS SUMMARY | 2024-07-18 22:27 | External Medical Summary ---
Author Name Unknown Address Unknown Organization [id number]:[facility] [place] [place] [address] Laboratory Report Ordering Provider Test Date Status TUNG ROBERT 07/18/2024 11:49:47 Final Observation Date Value Abnormality Reference (Units ) Status WBC, Total 07/18/2024 11:49:47 4.58 4.00-10.8 0 (K/uL) Final RBC 07/18/2024 11:49:47 3.21 4.50-5.25 (M/uL) Final Hemoglobin 07/18/2024 11:49:47 7.7 Below low normal 14 .0-16.8 (g/dL) Final HCT 07/18/2024 11:49:47 26.1 Below low normal 40. 0-48.4 (%) Final MCV 07/18/2024 11:49:47 81.3 82.0-99.5 (fL) Final MCH 07/18/2024 11:49:47 24.0 27.0-34.0 (pg) Final MCHC 07/18/2024 11:49:47 29.5 32.0-36.0 (g/dL) Final RDW 07/18/2024 11:49:47 19.2 11.5-15.5 (%) Final Platelets 07/18/2024 11:49:47 161 140-400 (K /uL) Final MPV 07/18/2024 11:49:47 10.7 6.6-11.1 ( fL) Final Performing Location [facility] [place] [address]
--- OUTSIDE RECORDS SUMMARY | 2024-07-18 22:27 | External Medical Summary ---
Author Name Unknown Address Unknown Organization K09:[facility] [place] [address] Laboratory Report Ordering Provider Test Date Status TUNG ROBERT 07/18/2024 11:49:47 Final Warfarin Therapy
INR: 2 .0-3.0 conventional anticoagulation
INR: 2.5- 3.5 high intensity anticoagulation Observation Date Value Abnormality Reference (Units ) Status PT 07/18/2024 11:49:47 32.0 Above high normal 11 .6-15.2 (seconds) Final INR 07/18/2024 11:49:47 3.1 Above high normal 0. 8-1.2 Final Performing Location [facility] [place] [address]
--- OUTSIDE RECORDS SUMMARY | 2024-07-18 22:27 | External Medical Summary ---
Author Name Unknown Address Unknown Organization K09[facility] [place] [address] Laboratory Report Ordering Provider Test Date Status TUNG ROBERT 07/18/2024 11:49:47 Final Observation Date Value Abnormality Reference (Units ) Status SYNC LEUKOCYTES IN BLOOD BY AUTOMATED COUNT 07/18/2024 11:49:47 4.58 4.00-10.80 (K/uL) Final Segs 07/18/2024 11:49:47 67.0 40.0-75.0 (%) Final Lymphs % 07/18/2024 11:49:47 10.0 Below low normal 18.0-42.0 (%) Final Monos 07/18/2024 11:49:47 22.3 Above high normal 1.0-11.0 (%) Final Eosinophils 07/18/2024 11:49:47 0.0 0.0-6.0 (%) Final Basos 07/18/2024 11:49:47 0.7 0.0-2.0 (%) Final Absolute Segs 07/18/2024 11:49:47 3.07 1.80-7.70 (K/uL) Final Lymphs, absolute 07/18/2024 11:49:47 0.46 Below low normal 1.00-4.80 (K/ul) Final Monos, Abs 07/18/2024 11:49:47 1.02 0.00-1.10 (K/uL) Final Eos, Abs 07/18/2024 11:49:47 0.00 0.00-0.70 (K/uL) Final Basos, Abs 07/18/2024 11:49:47 0.03 0.00-0.20 (K/uL) Final Performing Location [facility] [place] [address]
--- OUTSIDE RECORDS SUMMARY | 2024-07-18 22:27 | External Medical Summary | Summary of Care ---
Author Name Unknown Organization [facility] Address [address] [place] [address] Phone [phone] Care Team Providers Care Project Control Analyst Name Role Phone Lia Meadows MD Primary Care Provider [phone] Reason for Visit * Reason Onset Date Comments Appointment 06/30/2024 Encounter Details Date Type Department Care Team (Late st Contact Info) Description 06/30/2024 Telephone Hematology/Oncology Treatment, [facility] [address] [place] [address] Mónica Cantu MD Appointment Allergies Active Allergy Reactions Criticality Noted Date Comments Sulfa Antibiotics Edema Other Medium 02/01/2016 Other reaction(s): unknown Tramadol Nausea/vomiting 04/01/2021 documented as of this encounter (statuses as of 07/04/2024) Medications Vitamin D3 50 MCG (1999) Oral Tablet Take 1 Tablet by mouth in the morning. Active Vitamin C 500 MG Oral Tablet (Ascorbic Acid) Take 1 Tablet by mouth in the morning. Active Nitroglycerin 0.4 MG Sublingual Tablet Sublingual (Nitrostat) Place 1 Tablet under the tongue every 5 minutes as needed for Pain, Chest. 06/04/20 21 Active OneTouch Ultra Blue In Vitro Strip (Glucose Blood)Indications: DM type 2, goal HbA1c < 7% ([facility]) Use as directed 4 times a day . Use up to 3-4 times a day as directed 100 Strip 5 11/22/19 22 Active Eliquis 5 MG Oral Tablet (Apixaban) TAKE 1 TABLET BY MOUTH IN THE MORNING AND BEFORE BEDTIME 180 Tablet 3 09/10/19 24 Active Furosemide 20 MG Oral Tablet (Lasix)Indications :Cirrhosis of liver with ascites, unspecified hepatic cirrhosis type (HCC) Take 1 Tablet by mouth in the morning. 180 Tablet 1 10/09/19 24 Active Metoprolol Succinate ER 100 MG Oral Tablet Extended Release 24 Hour (toPROL XL)Indications:Eugenie lothorax, right,Coronary artery disease involving little traverse coronary artery of [place] traverse heart without angina pectoris,S/P CABG x 3,HFrEF (heart failure with reduced ejection fraction) ([facility]),Ischemic cardiomyopathy,PAF (paroxysmal atrial fibrillation) ([facility]),HTN, goal below 140/90,Dyslipidemi a, goal LDL below 70,Cerebrovascular accident (CVA), unspecified mechanism ([facility]) TAKE 1 TABLET BY MOUTH EVERY DAY IN THE MORNING AND BEFORE BEDTIME 180 Tablet 3 10/15/19 24 Active Additional Information Patient taking differently: 50 mg Oral BID (.AM/PM), Reported on 05/28/2024 Aspirin Low Dose 81 MG Oral Tablet Delayed Release (aspirin enteric coated)Indications :Coronary artery disease involving little traverse coronary artery of little traverse heart without angina pectoris,Ischemic cardiomyopathy,PAF (paroxysmal atrial fibrillation) ([facility]) TAKE 1 TABLET BY MOUTH EVERY DAY IN THE MORNING 90 Tablet 3 10/15/19 24 Active Additional Information Patient taking differently: 81 mg Oral EVERY OTHER DAY, Indications: sunday,wednesdays,fridays, Reported on 05/28/2024 Blood Glucose Monitoring Suppl w/Device KitIndications: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, unspecified whether terminal supervisor insulin use ([facility]),Type 2 diabetes mellitus with hemoglobin A1c goal of less than 8.0% ([facility]),Diabetic peripheral neuropathy ([facility]),Type 2 diabetes mellitus with stage 3a chronic kidney disease, unspecified whether terminal supervisor insulin use ([facility]) Check sugar before meals, at night time and as needed for motoring sugar . Dx -E.11.9 and E11.65 1 Kit 11/13/19 24 Active Atorvastatin Calcium 40 MG Oral Tablet (Lipitor)Indicatio ns:Hyperlipidemia LDL goal <100 TAKE 1 TABLET BY MOUTH EVERY DAY 90 Tablet 1 03/28/20 24 Active FreeStyle Frankie 14 Day [place] DeviceIndications: Type 2 diabetes mellitus with hemoglobin A1c goal of less than 8.0% ([facility]),Uncontrolled type 2 diabetes mellitus with hyperglycemia (HCC),Current use of insulin (HCC) Use as directed. 1 Each 04/04/20 24 Active FreeStyle Frankie 3 Sensor Use as directed every 14 days. 2 Each 04/07/20 24 Active FreeStyle Frankie 3 [place] Device Use as directed. 1 Each 1 04/07/20 24 Active Lactulose 10 GM/15ML Oral Solution (Constulose)Indica tions:Neuroendocri ne carcinoma of stomach (HCC) Take 15 mL by mouth in the morning and 15 mL before bedtime. 946 mL 2 05/01/20 Active Insulin Glargine Solostar 100 UNIT/ML Subcutaneous Solution Pen-injector (Lantus SoloStar)Indicatio ns:DM type 2, goal HbA1c < 7% ([facility]) INJECT 38 UNITS DAILY BEFORE BEDTIME 45 mL 3 05/04/20 Active Spironolactone 50 MG Oral Tablet (Aldactone)Indicat ions:after breakfast Take 1 Tablet by mouth daily. 90 Tablet 1 05/16/20 24 Active traZODone HCl 50 MG Oral Tablet (Desyrel)Indicatio ns:Insomnia, unspecified type,Malignant neoplasm of stomach, unspecified location (HCC) Take 1 Tablet by mouth at bedtime. 90 Tablet 1 05/23/20 24 Active Ondansetron HCl 4 MG Oral TabletIndications: Nausea Take 1 Tablet by mouth every 8 hours as needed for Nausea. 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 Uncontrolled type 2 diabetes mellitus with hyper [...] as of this encounter (statuses as of 07/04/2024) Resolved Problems Problem Noted Date Diagnosed Date [...] as of this encounter (statuses as of 07/04/2024) Immunizations Name Administration Dates Next Due COVID-19 mRNA, LNP-s, No Pre serve, 2-Dose Series (Moderna) 10/12/2020,09/22/2020 COVID-19, mRNA, LNP-s, PF, B ooster, 100mcg/0.5mg (Moderna) 05/09/2021 Pneumococcal Conjugate Vacc, 13 Valent (Prevnar) 01/28/2018,01/02/2018 Pneumococcal Polysaccharide PPV23 (Pneumovax) 09/16/2018 Seasonal Influenza Virus Vac cine, Unspecified Formulation 04/01/2021,04/23/2019,04/25/2017,05/09 Seasonal Influenza, High Dos e, Trivalent, PF, IM (Fluzone HD) 04/10/2024 Seasonal Influenza, PF, 6 M & above, [...] Answer Date Recorded PHQ Adult Total Score 1 04/21/2024 Hunger Vital Sign Answer Date Recorded Within [...] Recorded Sex Assigned at Not on file Legal Sex Male 12:04 PM EDT Gender Identity Not on file Sexual Orientation Not on file documented as of this encounter Functional Status * Are you deaf or do you have serious difficulty hearing? Answer Date of Assessment Author No 11/10/2021 3:04 AM EDT German Xiao RN * Are you blind or do you have serious difficulty seeing, even when wearing glasses? Answer Date of Assessment Author No 11/10/2021 3:04 AM EDT German Xiao RN * Do you have serious difficulty walking or climbing stairs? (5 years old or older) Answer Date of Assessment Author Yes 11/10/2021 3:04 AM EDT German Xiao RN * Do you have difficulty dressing or bathing? (5 years old or older) Answer Date of Assessment Author Yes 11/10/2021 3:04 AM EDT German Xiao RN * Because of a physical, mental, or emotional condition, do you have difficulty doing errands alone such as visiting a doctors office or shopping? (15 years old or older) Answer Date of Assessment Author Yes 11/10/2021 3:04 AM EDT German Xiao RN documented as of this encounter Mental Status * Because of a physical, mental, or emotional condition, do you have serious difficulty concentrating, remembering, or making decisions? (5 years old or older) Answer Entry Date Author No 11/10/2021 3:04 AM German Magana RN documented in this encounter Miscellaneous Notes * Telephone Encounter - Disha Villarreal OSA - 07/01/2024 1:44 PM EST Spoke to patient's son, Oscar. Scheduled appt with Dr Batres for 07/18/24 at 12:00pm - labs at 11:00am. * Telephone Encounter - Kelsie Mcneill RN - 06/30/2024 3:30 PM EST Called patient about upcoming appts. Injection appt 07/07 had been cancelled. Patient states that he no longer wants to receive injections. States that Dr Gordon had told him that she wasn't sure if they would help at all, but wanted to try them. About 4 hours after his injection, his chronic abdominal pain became severe. It is back to his baseline now, but he does not want to receive the injections again due to this. Disha: - patient aware appts 07/07 are cancelled - please schedule labs/ new return appt with either Dr Batres or Dr Bocanegra within the next 2-3 weeks to discuss options Thanks! documented in this encounter Plan of Treatment Upcoming Encounters Date Type Department Care Team (Late st Contact Info) Description 07/18/2024 11:00 AM EST Laboratory Laboratory [facility] [address] [facility] [place] [phone] [facility] [address] [place] [address] 07/18/2024 12:00 PM EST Office Visit Hematology/Oncology [facility] [address] [place] [address] [address] [id number] Aidan Batres MD [address] [facility] [place] [id number] 07/22/2024 9:40 AM EST Office Visit General Internal Medicine [facility] [address] [place] [address] Lia Meadows MD [address] [place] [address] 09/08/2024 3:20 PM EST Office Visit Hepatology, [facility] [address] [address] Zabrina Ya DO [address] [address] 10/07/2024 1:40 PM EDT Office Visit Nephrology, [facility] [address] [place] [address] Breezy Meadows MD [address] [place] [address] 12/02/2024 10:00 AM EDT Office Visit Cardiology, [facility] [address] [place] [address] Fallon Gifford CRNP [address] [place] [address] [address] Health Maintenance Due Date Last Done Comments Zoster Vaccines (1 of 2) 1996 Hepatitis B Vaccine (1 of 3 - Risk 3-dose series) 2006 Adult Wellness Visit 2012 COVID-19 Vaccine ( season) 2024 05/09/2021, 10/12/2020, 09/22/2020 Diabetic Foot Exam 06/13/2024 06/13/2023, 1 , 05/05/2021 GFR 11/20/2024 05/23/2024, 1009/2023, 04/07/2024, Additional history exists HbA1c 11/20/2024 05/23/2024, 08/09, 03/02/2023, Additional history exists Diabetic Eye Exam 01/24/2025 01/25/2024, , 11/09/2023, Additional history exists Depression Screening 04/21/2025 04/21/2024 Albumin/Creatinine Ratio 05/23/202505/23/2 024, 08/23/2023, 07/26/2022, Additional history exists CKD HGB USE SMARTSET 54308 05/23/202505/23, 05/23/2024, 04/23/2024, Additional history exists CKD PHOS USE SMARTSET 77514 05/23/202505/09, 04/07/2024, 11/19/2023, Additional history exists TSH 05/23/2025 05/23/2024, 12/0 12/2022, 11/30/2022, Additional history exists DTap/Tdap Vaccines (3 - Td or Tdap) 07/23/2027 07/23/2017, 07/23/2017 Colonoscopy Discontinued 01/06/2011 Colorectal Cancer Screening Discontinued Pneumococcal Vaccine: 50+ Years Completed 09/16/2018, 01/28/2018, 01/02/2018 Influenza Vaccine (FLU shot) Completed 04/10/2024, 06/13/2023, 03/30/2022, Additional history exists Cologuard Discontinued Fecal Occult Blood Test Discontinued HPV (Gardasil) Vaccine Aged Out No lo nger eligible based on patient's age to complete this topic MENINGOCOCCAL (MENACTRA/MENVEO) Aged Out No longer eligible based on patient's age to complete this topic Sigmoidoscopy Discontinued documented as of this encounter Medical Devices Implanted Type Area Kindergarten Teacher Device Identifier Shelf Expiration Date Model / Serial / Lot Suture Steel 6 B&S19 M654g - [id number] Implanted:Qty: 7 on 05/30/2021 by Uvaldo Fleming MD at [facility] N/A: Sternum JNJ : [employer] 01/05/2026 M654G / / [id number] Lipiodol Injection - [id number] Implanted:Qty: 2 on 09/06/2021 at [facility] [employer] 10/06/2022 [id number] -2 / [id number] / [id number] Lipiodol Injection - [id number] Implanted:Qty: 1 on 09/06/2021 at [facility] [employer] [facility] 10/06/2022 [id number] -2 / [id number] / [id number] documented as of this encounter Advance Directives * Full Code [...] Advance Directives occurred with: Patient Care Teams Project Control Analyst Relationship Specialty Start Date End Date Lia Meadows MD [address] [facility] [place] [address] PCP - General Internal Medicine 04/06/21 documented as of this encounter
--- OUTSIDE RECORDS SUMMARY | 2024-07-18 22:27 | External Medical Summary | Summary of Care ---
Author Name Unknown Organization [facility] Address [address] [place] [address] Phone [phone] Care Team Providers Care Lodge Sales Associate Name Role Phone Lia Meadows MD Primary Care Provider [phone] Reason for Visit * Reason Onset Date Comments Appointment 06/30/2024 Encounter Details Date Type Department Care Team (Late st Contact Info) Description 06/30/2024 Telephone Hematology/Oncology Treatment, [place] [address] [place] [address] Mónica Cantu MD Appointment Allergies Active Allergy Reactions Criticality Noted Date Comments Sulfa Antibiotics Edema Other Medium 02/01/2016 Other reaction(s): unknown Tramadol Nausea/vomiting 04/01/2021 documented as of this encounter (statuses as of 07/01/2024) Medications Vitamin D3 50 MCG (1999) Oral [...] type 2, goal HbA1c < 7% ([facility]) Use as directed 4 times [...] (toPROL XL)Indications:Eugenie lothorax, right,Coronary artery disease involving chitina coronary artery of chitina heart without angina pectoris,S/P CABG x 3,HFrEF (heart failure with reduced ejection fraction) ([facility]),Ischemic cardiomyopathy,PAF (paroxysmal atrial fibrillation) ([facility]),HTN, goal below 140/90,Dyslipidemi a, goal LDL below 70,Cerebrovascular accident (CVA), unspecified mechanism ([facility]) TAKE 1 TABLET BY MOUTH EVERY DAY IN THE MORNING AND BEFORE BEDTIME 180 Tablet 3 10/15/19 24 Active Additional Information Patient taking differently: 50 mg Oral BID (.AM/PM), Reported on 05/28/2024 Aspirin Low Dose 81 MG Oral Tablet Delayed Release (aspirin enteric coated)Indications :Coronary artery disease involving chitina coronary artery of chitina heart without angina pectoris,Ischemic cardiomyopathy,PAF (paroxysmal atrial fibrillation) ([facility]) TAKE 1 TABLET BY MOUTH EVERY DAY IN THE MORNING 90 Tablet 3 10/15/19 24 Active Additional Information Patient taking differently: 81 mg Oral EVERY OTHER DAY, Indications: sunday,wednesdays,fridays, Reported on 05/28/2024 Blood Glucose Monitoring Suppl w/Device KitIndications: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, unspecified whether public improvement inspector insulin use ([facility]),Type 2 diabetes mellitus with hemoglobin A1c goal of less than 8.0% ([facility]),Diabetic peripheral neuropathy ([facility]),Type 2 diabetes mellitus with stage 3a chronic kidney disease, unspecified whether public improvement inspector insulin use ([facility]) Check sugar before meals, at night time and as needed for motoring sugar . Dx -E.11.9 and E11.65 1 Kit 11/13/19 24 Active Atorvastatin Calcium 40 MG Oral Tablet (Lipitor)Indicatio ns:Hyperlipidemia LDL goal <100 TAKE 1 TABLET BY MOUTH EVERY DAY 90 Tablet 1 03/28/20 24 Active FreeStyle Frankie 14 Day [place] DeviceIndications: Type 2 diabetes mellitus with hemoglobin A1c goal of less than 8.0% ([facility]),Uncontrolled type 2 diabetes mellitus with hyperglycemia (HCC),Current use of insulin (HCC) Use as directed. 1 Each 04/04/20 24 Active FreeStyle Frankie 3 Sensor Use as directed every 14 days. 2 Each 04/07/20 Active FreeStyle Frankie 3 [place] Device Use as directed. 1 Each 1 04/07/20 24 Active Lactulose 10 GM/15ML Oral Solution (Constulose)Indica tions:Neuroendocri ne carcinoma of stomach (HCC) Take 15 mL by mouth in the morning and 15 mL before bedtime. 946 mL 2 05/01/20 Active Insulin Glargine Solostar 100 UNIT/ML Subcutaneous Solution Pen-injector (Lantus SoloStar)Indicatio ns:DM type 2, goal HbA1c < 7% ([facility]) INJECT 38 UNITS DAILY BEFORE [...] A1c goal of less than 7.0% ([facility]) Use once daily with insulin 100 Each 5 06/19/20 24 Active Levothyroxine Sodium 88 MCG Oral Tablet (Levoxyl)Indicatio ns:Acquired hypothyroidism TAKE 1 TABLET BY MOUTH IN THE MORNING AT LEAST 30 MINUTES PRIOR TO BREAKFAST AND OTHER MEDS 90 Tablet 1 06/25/20 24 Active documented as of this encounter (statuses as of 07/01/2024) Active Problems Problem Noted Date Diagnosed Date [...] as of this encounter (statuses as of 07/01/2024) Resolved Problems Problem Noted Date Diagnosed Date [...] as of this encounter (statuses as of 07/01/2024) Immunizations Name Administration Dates Next Due COVID-19 [...] Description 07/18/2024 11:00 AM EST Laboratory Laboratory [facility] [address] [place] [phone] [facility] [address] [facility] [place] [address] 07/22/2024 9:40 AM EST Office Visit General Internal Medicine [facility] [address] [place] [address] Lia Meadows MD [address] [facility] [place] [address] 09/08/2024 3:20 PM EST Office Visit Hepatology, [facility] [place] [address] Zabrina Ya DO [address] [facility] [place] [address] 10/07/2024 1:40 PM EDT Office Visit Nephrology, [facility] [address] [place] [address] Breezy Meadows MD [address] [place] [address] 12/02/2024 10:00 AM EDT Office Visit Cardiology, [facility] [address] [facility] [place] [address] Fallon Gifford CRNP [address] [place] [address] [place] [address] Health Maintenance Due Date Last Done Comments Zoster Vaccines (1 of 2) 1996 Hepatitis B Vaccine (1 of 3 - Risk 3-dose series) 2006 Adult Wellness Visit 2012 COVID-19 Vaccine ( season) 2024 05/09/2021, 10/12/2020, 09/22/2020 Diabetic Foot Exam 06/13/2024 06/13/2023, 1 , 05/05/2021 GFR 11/20/2024 05/23/2024, 09/2023, 04/07/2024, Additional history exists HbA1c 11/20/2024 05/23/2024, 08/09, 03/02/2023, Additional history exists Diabetic Eye Exam 01/24/2025 01/25/2024, , 11/09/2023, Additional history exists Depression Screening 04/21/2025 04/21/2024 Albumin/Creatinine Ratio 05/23/202505/23/2 024, 08/23/2023, 07/26/2022, Additional history exists CKD HGB USE SMARTSET 15235 05/23/202505/23, 05/23/2024, 04/23/2024, Additional history exists CKD PHOS USE SMARTSET 01224 05/23/202505/09, 04/07/2024, 11/19/2023, Additional history exists TSH 05/23/2025 05/23/2024, 12/2022, 11/30/2022, Additional history exists DTap/Tdap Vaccines [...] this encounter Medical Devices Implanted Type Area Garage Manager Device Identifier Shelf Expiration Date Model / Serial / Lot Suture Steel 6 B&S19 M654g - [id number] Implanted:Qty: 7 on 05/30/2021 by Uvaldo Fleming MD at [facility] N/A: Sternum JNJ : [employer] 01/05/2026 M654G / / [id number] Lipiodol Injection - [id number] Implanted:Qty: 2 on 09/06/2021 at [facility] [employer] 10/06/2022 [id number] -2 / [id number] / [id number] Lipiodol Injection - [id number] Implanted:Qty: 1 on 09/06/2021 at [facility] [employer] 10/06/2022 [id number] -2 / [id number] / [id number] documented as of this encounter Advance Directives [...] Advance Directives occurred with: Patient Care Teams Lodge Sales Associate Relationship Specialty Start Date End Date Lia Meadows MD [address] [facility] [place] [address] PCP - General Internal Medicine 04/06/21 documented as of this encounter
--- OUTSIDE RECORDS SUMMARY | 2024-07-18 22:27 | External Medical Summary | Summary of Care ---
Author Name Unknown Organization [facility] Address [address] [place] [address] Phone [phone] Care Team Providers Care Bundles Hanger Name Role Phone Lia Kilgore MD Primary Care Provider [phone] Reason for Visit * Reason Comments eRx-Medication Refill Encounter Details Date Type Department Care Team (Late st Contact Info) Description 06/24/2024 Refill General Internal Medicine [facility] [place] [address] [place] [address] Lia Kilgore MD [address] [place] [address] Acquired hypothyroidism Allergies Active Allergy Reactions Criticality Noted Date Comments Sulfa Antibiotics Edema Other Medium 02/01/2016 Other reaction(s): unknown Tramadol Nausea/vomiting 04/01/2021 documented as of this encounter (statuses as of 06/25/2024) Medications Vitamin D3 50 MCG (1999) Oral Tablet Take 1 Tablet by mouth in the morning. Active Vitamin C 500 MG Oral Tablet (Ascorbic Acid) Take 1 Tablet by mouth in the morning. Active Nitroglycerin 0.4 MG Sublingual Tablet Sublingual (Nitrostat) Place 1 Tablet under the tongue every 5 minutes as needed for Pain, Chest. 021 Active OneTouch Ultra Blue In Vitro Strip (Glucose Blood)Indications :DM type 2, goal HbA1c < 7% ([facility]) Use as directed 4 times a day . Use up to 3-4 times a day as directed 100 Strip 5 022 Active Eliquis 5 MG Oral Tablet (Apixaban) TAKE 1 TABLET BY MOUTH IN THE MORNING AND BEFORE BEDTIME 180 Tablet 3 024 Active Furosemide 20 MG Oral Tablet (Lasix)Indication s:Cirrhosis of liver with ascites, unspecified hepatic cirrhosis type ([facility]) Take 1 Tablet by mouth in the morning. 180 Tablet 1 024 Active Metoprolol Succinate ER 100 MG Oral Tablet Extended Release 24 Hour (toPROL XL)Indications:Ch ylothorax, right,Coronary artery disease involving [place] coronary artery of [place] heart without angina pectoris,S/P CABG x 3,HFrEF (heart failure with reduced ejection fraction) ([facility]),Ischemic cardiomyopathy,PA F (paroxysmal atrial fibrillation) ([facility]),HTN, goal below 140/90,Dyslipidem ia, goal LDL below 70,Cerebrovascula r accident (CVA), unspecified mechanism ([facility]) TAKE 1 TABLET BY MOUTH EVERY DAY IN THE MORNING AND BEFORE BEDTIME 180 Tablet 3 024 Active Additional Information Patient taking differently: 50 mg Oral BID (.AM/PM), Reported on 05/28/2024 Aspirin Low Dose 81 MG Oral Tablet Delayed Release (aspirin enteric coated)Indication s:Coronary artery disease involving [place] coronary artery of [place] heart without angina pectoris,Ischemic cardiomyopathy,PA F (paroxysmal atrial fibrillation) ([facility]) TAKE 1 TABLET BY MOUTH EVERY DAY IN THE MORNING 90 Tablet 3 024 Active Additional Information Patient taking differently: 81 mg Oral EVERY OTHER DAY, Indications: sunday,wednesdays,fridays, Reported on 05/28/2024 Blood Glucose Monitoring Suppl w/Device KitIndications:Ty pe 2 diabetes mellitus with stage 3b chronic kidney disease, unspecified whether penitentiary insulin use ([facility]),Type 2 diabetes mellitus with hemoglobin A1c goal of less than 8.0% ([facility]),Diabetic peripheral neuropathy ([facility]),Type 2 diabetes mellitus with stage 3a chronic kidney disease, unspecified whether manager intermediate insulin use ([facility]) Check sugar before meals, at night time and as needed for motoring sugar . Dx -E.11.9 and E11.65 1 Kit 024 Active Atorvastatin Calcium 40 MG Oral Tablet (Lipitor)Indicati ons:Hyperlipidemi a LDL goal <100 TAKE 1 TABLET BY MOUTH EVERY DAY 90 Tablet 1 024 Active FreeStyle Frankie 14 Day [place] DeviceIndications :Type 2 diabetes mellitus with hemoglobin A1c goal of less than 8.0% ([facility]),Uncontrolle d type 2 diabetes mellitus with hyperglycemia ([facility]),Current use of insulin (HCC) Use as directed. 1 Each 024 Active FreeStyle Frankie 3 Sensor Use as directed every 14 days. 2 Each 11 024 Active FreeStyle Frankie 3 [place] Device Use as directed. 1 Each 1 024 Active Lactulose 10 GM/15ML Oral Solution (Constulose)Indic ations:Neuroendoc rine carcinoma of stomach (HCC) Take 15 mL by mouth in the morning and 15 mL before bedtime. 946 mL 2 024 Active Insulin Glargine Solostar 100 UNIT/ML Subcutaneous Solution Pen-injector (Lantus SoloStar)Indicati ons:DM type 2, goal HbA1c < 7% ([facility]) INJECT 38 UNITS DAILY BEFORE BEDTIME 45 mL 3 024 Active Spironolactone 50 MG Oral Tablet (Aldactone)Indica tions:after breakfast Take 1 Tablet by mouth daily. 90 Tablet 1 024 Active traZODone HCl 50 MG Oral Tablet (Desyrel)Indicati ons:Insomnia, unspecified type,Malignant neoplasm of stomach, unspecified location ([facility]) Take 1 Tablet by mouth at bedtime. 90 Tablet 1 024 Active Ondansetron HCl 4 MG Oral TabletIndications :Nausea Take 1 Tablet by mouth every 8 hours as needed for Nausea. 30 Tablet 5 024 Active BD Pen Needle Zora U/F 32G X 4 MM (Insulin Pen Needle)Indication s:Type 2 diabetes mellitus with hemoglobin A1c goal of less than 7.0% ([facility]) Use once daily with insulin 100 Each 5 024 Active Levothyroxine Sodium 88 MCG Oral Tablet (Levoxyl)Indicati ons:Acquired hypothyroidism TAKE 1 TABLET BY MOUTH IN THE MORNING AT LEAST 30 MINUTES PRIOR TO BREAKFAST AND OTHER MEDS 90 Tablet 1 024 Active Levothyroxine Sodium 88 MCG Oral Tablet (Levoxyl)Indicati ons:Acquired hypothyroidism TAKE 1 TABLET BY MOUTH IN THE MORNING AT LEAST 30 MINUTES PRIOR TO BREAKFAST AND OTHER MEDS 90 Tablet 1 024 2023 Discontinued documented as of this encounter (statuses as of 06/25/2024) Active Problems Problem Noted Date Diagnosed Date [...] as of this encounter (statuses as of 06/25/2024) Resolved Problems Problem Noted Date Diagnosed Date [...] as of this encounter (statuses as of 06/25/2024) Immunizations Name Administration Dates Next Due COVID-19 [...] of Assessment Author Yes 11/10/2021 3:04 AM German Magana RN * Do you have difficulty dressing [...] of Assessment Author Yes 11/10/2021 3:04 AM German Magana RN documented as of this encounter Mental Status * Because of a physical, mental, or emotional condition, do you have serious difficulty concentrating, remembering, or making decisions? (5 years old or older) Answer Entry Date Author No 11/10/2021 3:04 AM German Magana RN documented in this encounter Miscellaneous Notes * Telephone Encounter - Earl Al [facility] - 06/25/2024 8:12 AM ESTSigned Prescriptions: Disp Refills Levothyroxine Sodium 88 MCG Oral Tablet (L*90 Tab*1 Sig: TAKE 1 TABLET BY MOUTH IN THE MORNING AT LEAST 30 MINUTES PRIOR TO BREAKFAST AND OTHER MEDSAuthorizing Provider: Chuck KILGORE User: EARL AL Electronically signed by Earl Al [facility] at 06/25/2024 8:12 AM EST documented in this encounter Plan of Treatment Upcoming Encounters Date Type Department Care Team (Late st Contact Info) Description 07/07/2024 1:30 PM EST Laboratory Laboratory [facility] [place] [address] [place] [phone] Mone [place] [address] [address] [place] [address] 07/07/2024 2:00 PM EST Office Visit Hematology/Oncology [facility] [place] [address] [place] [phone] Mónica Cantu MD [address] [place] [address] [place] [phone] 07/07/2024 2:30 PM EST Immunization/Injecti on Hematology/Oncology Treatment, [place] [address] [facility] [address] [place], [place] [phone] 07/22/2024 9:40 AM EST Office Visit General Internal Medicine [facility] [place] [address] [place], [place] [address] Lia Kilgore MD [address] [place] [address] 09/08/2024 3:20 PM EST Office Visit Hepatology, [facility] [address] [place] [address] Zabrina Ya DO [address] [place] [address] 10/07/2024 1:40 PM EDT Office Visit Nephrology, [facility] [address] [place] [address] Breezy Kilgore MD [address] [place] [address] 12/02/2024 10:00 AM EDT Office Visit Cardiology, [facility] [address] [place] [address] Fallon Gifford CRNP [address] [facility] [place] [address] Health Maintenance Due Date Last Done [...] Additional history exists CKD HGB USE SMARTSET 66241 05/23/202505/23, 05/23/2024, 04/23/2024, Additional history exists CKD PHOS USE SMARTSET 84086 05/23/202505/09, 04/07/2024, 11/19/2023, Additional history exists TSH 05/23/2025 05/23/2024, 1212/2022, 11/30/2022, Additional history exists DTap/Tdap Vaccines (3 [...] this encounter Medical Devices Implanted Type Area Chainstitch Binder Device Identifier Shelf Expiration Date Model / Serial / Lot Suture Steel 6 B&S19 M654g - [id number] Implanted:Qty: 7 on 05/30/2021 by Uvaldo Fleming MD at [facility] N/A: Sternum JNJ : [employer] 01/05/2026 M654G / / [id number] Lipiodol Injection - [id number] Implanted:Qty: 2 on 09/06/2021 at [facility] [employer] 10/06/2022 [id number] -2 / [id number] / [id number] Lipiodol Injection - [id number] Implanted:Qty: 1 on 09/06/2021 at [facility] [employer] 10/06/2022 [id number] -2 / [id number] / [id number] documented as of this encounter Visit Diagnoses Diagnosis Acquired hypothyroidism Unspecified hypothyroidism documented in this encounter Advance Directives * [...] Advance Directives occurred with: Patient Care Teams Bundles Hanger Relationship Specialty Start Date End Date Lia Kilgore MD [address] [place] [address] PCP - General Internal Medicine 04/06/21 documented as of this encounter
--- OUTSIDE RECORDS SUMMARY | 2024-07-18 22:27 | External Medical Summary ---
Author Name Unknown Address Unknown Organization K09[facility] [place] [address] Laboratory Report Ordering Provider Test Date Status TUNG ROBERT 07/18/2024 11:49:47 Final Observation Date Value Abnormality Reference (Units ) Status Nucleated erythrocytes/100 leukocytes [Ratio] in Blood by Automated count 07/18/2024 11:49:47 Final Acanthocytes [Presence] in Blood by Light microscopy 07/18/2024 11:49:47 Moderate Abnormal None Seen Final Elliptocytes [Presence] in Blood by Light microscopy 07/18/2024 11:49:47 Moderate Abnormal None Seen Final Schistocytes 07/18/2024 11:49:47 Few Abnormal None Seen Final Performing Location [facility] [place] [address]
--- OUTSIDE RECORDS SUMMARY | 2024-07-18 22:27 | External Medical Summary ---
Author Name Unknown Address Unknown Organization K09[facility] [address] [place] [address] Laboratory Report Ordering Provider Test Date Status TUNG ROBERT 07/18/2024 11:49:47 Final Observation Date Value Abnormality Reference (Units ) Status BUN 07/18/2024 11:49:47 66 Above high normal 6-20 (mg/dL) Final Creatinine 07/18/2024 11:49:47 4.1 Above high normal 0.6-1.2 (mg/dL) Final Glomerular filtration rate/1.73 sq M.predicted [Volume Rate/Area] in Serum, Plasma or Blood by Creatinine-based formula (CKD-EPI) 07/18/2024 11:49:47 14 Below low normal >=60 (mL/min) Final eGFR is calculated based on the CKD-EPI 2020 equation. Sodium 07/18/2024 11:49:47 136 135-146 (m mol/L) Final Potassium 07/18/2024 11:49:47 4.4 3.5-5.1 (m mol/L) Final Cl 07/18/2024 11:49:47 107 98-107 (mm ol/L) Final CO2 07/18/2024 11:49:47 14 Below low normal 22- 32 (mmol/L) Final Anion gap 07/18/2024 11:49:47 15 7-15 (mmol /L) Final Glucose 07/18/2024 11:49:47 72 70-120 (mg /dL) Final Albumin 07/18/2024 11:49:47 3.0 Below low normal 3.8 -5.0 (g/dL) Final AST (Aspartate aminotransferase) 07/18/2024 11:49:47 26 10-50 (U/L) Fin al Alk Phos 07/18/2024 11:49:47 130 35-130 (U/ L) Final Bilirubin, Total 07/18/2024 11:49:47 1.2 <=1 .2 (mg/dL) Final Calcium 07/18/2024 11:49:47 9.2 8.4-10.2 ( mg/dL) Final Protein 07/18/2024 11:49:47 6.0 6.0-8.3 (g /dL) Final ALT (Alanine aminotransferase) 07/18/2024 11:49:47 13 10-50 (U/L) Dain whitney Performing Location [facility] [address] [place] [address]
--- OUTSIDE RECORDS SUMMARY | 2024-07-18 22:27 | External Medical Summary | Summary of Care ---
Author Name Unknown Organization [facility] Address [address] [place] [address] Phone [phone] Care Team Providers Care Slot Operations Director Name Role Phone Lia Meadows MD Primary Care Provider [phone] Reason for Visit * Reason Onset Date Comments Appointment 06/30/2024 Encounter Details Date Type Department Care Team (Late st Contact Info) Description 06/30/2024 Telephone Hematology/Oncology Treatment, [place] [address] [place] [address] Mónica Cantu MD [address] [place] [phone] Appointment Allergies Active Allergy Reactions Criticality Noted Date Comments Sulfa Antibiotics Edema Other Medium 02/01/2016 Other reaction(s): unknown Tramadol Nausea/vomiting 04/01/2021 documented as of this encounter (statuses as of 06/30/2024) Medications Vitamin D3 50 MCG (1999) Oral [...] DM type 2, goal HbA1c < 7% ([facility]) Use as directed 4 times a day . Use up to 3-4 times a day as directed 100 Strip 5 11/22/19 22 Active Eliquis 5 MG Oral Tablet (Apixaban) TAKE 1 TABLET BY MOUTH IN THE MORNING AND BEFORE BEDTIME 180 Tablet 3 09/10/19 24 Active Furosemide 20 MG Oral Tablet (Lasix)Indications :Cirrhosis of liver with ascites, unspecified hepatic cirrhosis type ([facility]) Take 1 Tablet by mouth in the morning. 180 Tablet 1 10/09/19 24 Active Metoprolol Succinate ER 100 MG Oral Tablet Extended Release 24 Hour (toPROL XL)Indications:Eugenie lothorax, right,Coronary artery disease involving [place] tribe coronary artery of ki[place] heart without angina pectoris,S/P CABG x 3,HFrEF (heart failure with reduced ejection fraction) ([facility]),Ischemic cardiomyopathy,PAF (paroxysmal atrial fibrillation) ([facility]),HTN, goal below 140/90,Dyslipidemi a, goal LDL below 70,Cerebrovascular accident (CVA), unspecified mechanism ([facility]) TAKE 1 TABLET BY MOUTH EVERY DAY IN THE MORNING AND BEFORE BEDTIME 180 Tablet 3 10/15/19 24 Active Additional Information Patient taking differently: 50 mg Oral BID (.AM/PM), Reported on 05/28/2024 Aspirin Low Dose 81 MG Oral Tablet Delayed Release (aspirin enteric coated)Indications :Coronary artery disease involving ki[place] tribe coronary artery of ki[place] tribe heart without angina pectoris,Ischemic cardiomyopathy,PAF (paroxysmal atrial fibrillation) ([facility]) TAKE 1 TABLET BY MOUTH EVERY DAY IN THE MORNING 90 Tablet 3 10/15/19 24 Active Additional Information Patient taking differently: 81 mg Oral EVERY OTHER DAY, Indications: sunday,wednesdays,fridays, Reported on 05/28/2024 Blood Glucose Monitoring Suppl w/Device KitIndications: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, unspecified whether intermediate project manager insulin use ([facility]),Type 2 diabetes mellitus with hemoglobin A1c goal of less than 8.0% ([facility]),Diabetic peripheral neuropathy ([facility]),Type 2 diabetes mellitus with stage 3a chronic kidney disease, unspecified whether senior living insulin use ([facility]) Check sugar before meals, at night time and as needed for motoring sugar . Dx -E.11.9 and E11.65 1 Kit 11/13/19 24 Active Atorvastatin Calcium 40 MG Oral Tablet (Lipitor)Indicatio ns:Hyperlipidemia LDL goal <100 TAKE 1 TABLET BY MOUTH EVERY DAY 90 Tablet 1 03/28/20 24 Active FreeStyle Frankie 14 Day [place] DeviceIndications: Type 2 diabetes mellitus with hemoglobin A1c goal of less than 8.0% ([facility]),Uncontrolled type 2 diabetes mellitus with hyperglycemia (HCC),Current use of insulin (HCC) Use as directed. 1 Each 04/04/20 24 Active FreeStyle Frankie 3 Sensor Use as directed every 14 days. 2 Each 04/07/20 24 Active FreeStyle Frankie 3 [place] Device Use as directed. 1 Each 1 04/07/20 24 Active Lactulose 10 GM/15ML Oral Solution (Constulose)Indica tions:Neuroendocri ne carcinoma of stomach (HCC) Take 15 mL by mouth in the morning and 15 mL before bedtime. 946 mL 2 05/01/20 24 Active Insulin Glargine Solostar 100 UNIT/ML Subcutaneous Solution Pen-injector (Lantus SoloStar)Indicatio ns:DM type 2, goal HbA1c < 7% ([facility]) INJECT 38 UNITS DAILY BEFORE BEDTIME 45 mL 3 05/04/20 24 Active Spironolactone 50 MG Oral Tablet (Aldactone)Indicat ions:after breakfast Take 1 Tablet by mouth daily. 90 Tablet 1 05/16/20 24 Active traZODone HCl 50 MG Oral Tablet (Desyrel)Indicatio ns:Insomnia, unspecified type,Malignant neoplasm of stomach, unspecified location ([facility]) Take 1 Tablet by mouth at bedtime. [...] goal of less than 7.0% ([facility]) Use once daily with insulin 100 Each 5 06/19/20 24 Active Levothyroxine Sodium 88 MCG Oral Tablet (Levoxyl)Indicatio ns:Acquired hypothyroidism TAKE 1 TABLET BY MOUTH IN THE MORNING AT LEAST 30 MINUTES PRIOR TO BREAKFAST AND OTHER MEDS 90 Tablet 1 06/25/20 24 Active documented as of this encounter (statuses as of 06/30/2024) Active Problems Problem Noted Date Diagnosed Date [...] as of this encounter (statuses as of 06/30/2024) Resolved Problems Problem Noted Date Diagnosed Date [...] as of this encounter (statuses as of 06/30/2024) Immunizations Name Administration Dates Next Due COVID-19 [...] of Assessment Author Yes 11/10/2021 3:04 AM EDGerman Browning RN * Do you have difficulty dressing or bathing? (5 years old or older) Answer Date of Assessment Author Yes 11/10/2021 3:04 AM EDGerman Browning RN * Because of a physical, mental, [...] encounter Miscellaneous Notes * Telephone Encounter - Kelsie Mcneill RN [...] Description 07/07/2024 1:30 PM EST Laboratory Laboratory [facility] [place] [address] [place] [phone] [facility] [address] [place] [address] 07/07/2024 2:00 PM EST Office Visit Hematology/Oncology [facility] [place] [address] [place] [phone] Mónica Cantu MD [address] [place] [address] [place] [phone] 07/22/2024 9:40 AM EST Office Visit General Internal Medicine [facility] [place] [address] [place] [address] Lia Meadows MD [facility] [place] [address] 09/08/2024 3:20 PM EST [facility] [place] [address] [facility]abrina Ya DO [facility] [place] [address] 10/07/2024 1:40 PM EDT Office Visit Nephrology, [facility] [address] [place] [address] Breezy Meadows MD [address] [facility] [place] [address] 12/02/2024 10:00 AM EDT Office Visit Cardiology, [facility] [address] [facility] [place] [address] Fallon Gifford CRNP [address] [place] [address] [place] [address] Health Maintenance Due Date [...] Additional history exists CKD HGB USE SMARTSET 41420 05/23/202505/23, 05/23/2024, 04/23/2024, Additional history exists CKD PHOS USE SMARTSET 42221 05/23/202505/09, 04/07/2024, 11/19/2023, Additional history exists TSH [...] this encounter Medical Devices Implanted Type Area Wallpaper Remover Steam Device Identifier Shelf Expiration Date Model / Serial / Lot Suture Steel 6 B&S19 M654g - [id number] Implanted:Qty: 7 on 05/30/2021 by Uvaldo Fleming MD at OR [facility] N/A: Sternum JNJ : [employer] 01/05/2026 M654G / / [id number] Lipiodol Injection - [id number] Implanted:Qty: 2 on [facility] [employer] 10/06/2022 [id number] -2 / [id number] / [id number] Lipiodol Injection - [id number] Implanted:Qty: 1 on [facility]06/2021 [facility] [employer] 10/06/2022 [id number] -2 / [id number] / [id number] documented as of this encounter Advance Directives [...] Advance Directives occurred with: Patient Care Teams Slot Operations Director Relationship Specialty Start Date End Date Lia Meadows MD 200 [facility] [place] [address] PCP - General Internal Medicine 04/06/21 documented as of this encounter
--- OUTSIDE RECORDS SUMMARY | 2024-07-18 22:28 | External Medical Summary | Summary of Care ---
Author Name Unknown Organization [facility] Address [address] [place] [facility] [place] [address] Phone [phone] Care Team Providers Care [facility] Rehabilitation Counselor Name Role Phone Lia Meadows MD Primary Care Provider [phone] Reason for Visit * Reason Comments Follow Up 7 month follow up. Q uestions about medications due to new medications. GI bleed and hospitalized at [facility] 03/23-04/02/24. Still need to be on Eliquis? Metoprolol vs carvedilol or propanolol from a liver perspective? Diagnosed with an Neuroendocrine tumor. SOB due to abdominal issues. Denies chest pain, palpitations, dizziness and edema. * Evaluate & Treat - Unlimited Visits (Within 3 days (urgent)) - Authorized Specialty Diagnoses / Procedures Referred By Contact Referred To Contact Cardiovascular Medicine / Cardiology Diagnoses Hx of CABG Zabrina Ya DO [address] [place] [address] Phone: tel: fax: Referral ID Status Reason Start Date Expiration Date Visits Requested Visits Authorized [id number] Authorized Specialty Services Required [phone] Encounter Details Date Type Department Care Team (Late st Contact Info) Description 05/28/2024 2:00 PM EST Office Visit Cardiology, [facility] [address] [place] [address] Fallon Gifford CRNP [address] [place] [address] [place] [address] Triple vessel coronary artery disease*; S/P CABG x 3; 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); Ischemic cardiomyopathy; PAF (paroxysmal atrial fibrillation) (HCC); HTN, goal below 140/90; Dyslipidemia, goal LDL below 70; Moderate mitral regurgitation by prior echocardiogram; History of CVA (cerebrovascular accident); Neuroendocrine carcinoma of stomach (HCC); Alcoholic cirrhosis of liver with ascites (HCC); Secondary esophageal varices without bleeding (HCC) Allergies Active Allergy Reactions Criticality Noted Date Comments Sulfa Antibiotics Edema Other Medium 02/01/2016 Other reaction(s): unknown Tramadol Nausea/vomiting 04/01/2021 documented as of this encounter (statuses as of 05/29/2024) Medications Vitamin D3 50 MCG (1999) Oral [...] :DM type 2, goal HbA1c < 7% ([facility]) Use as directed 4 times a day . Use up to 3-4 times a day as directed 100 Strip 5 11/22/19 22 Active BD Pen Needle Zora U/F 32G X 4 MM (Insulin Pen Needle)Indication s:Type 2 diabetes mellitus with hemoglobin A1c goal of less than 7.0% ([facility]) Use once daily with insulin 100 Each 5 03/20/20 22 Active Eliquis 5 MG Oral Tablet (Apixaban) TAKE 1 TABLET BY MOUTH IN THE MORNING AND BEFORE BEDTIME 180 Tablet 3 09/10/19 24 Active Furosemide 20 MG Oral Tablet (Lasix)Indication s:Cirrhosis of liver with ascites, unspecified hepatic cirrhosis type (HCC) Take 1 Tablet by mouth in the morning. 180 Tablet 1 10/09/19 24 Active Metoprolol Succinate ER 100 MG Oral Tablet Extended Release 24 Hour (toPROL XL)Indications:Ch ylothorax, right,Coronary artery disease involving iqugmiut coronary artery of iqugmiut heart without angina pectoris,S/P CABG x 3,HFrEF (heart failure with reduced ejection fraction) ([facility]),Ischemic cardiomyopathy,PA F (paroxysmal atrial fibrillation) ([facility]),HTN, goal below 140/90,Dyslipidem ia, goal LDL below 70,Cerebrovascula r accident (CVA), unspecified mechanism ([facility]) TAKE 1 TABLET BY MOUTH EVERY DAY IN THE MORNING AND BEFORE BEDTIME 180 Tablet 3 10/15/19 24 Active Additional Information Patient taking differently: 50 mg Oral BID (.AM/PM), Reported on 05/28/2024 Aspirin Low Dose 81 MG Oral Tablet Delayed Release (aspirin enteric coated)Indication s:Coronary artery disease involving iqugmiut coronary artery of iqugmiut heart without angina pectoris,Ischemic cardiomyopathy,PA F (paroxysmal atrial fibrillation) ([facility]) TAKE 1 TABLET BY MOUTH EVERY DAY IN THE MORNING 90 Tablet 3 10/15/19 24 Active Additional Information Patient taking differently: 81 mg Oral EVERY OTHER DAY, Indications: sunday,wednesdays,fridays, Reported on 05/28/2024 Blood Glucose Monitoring Suppl w/Device KitIndications:Ty pe 2 diabetes mellitus with stage 3b chronic kidney disease, unspecified whether correction insulin use ([facility]),Type 2 diabetes mellitus with hemoglobin A1c goal of less than 8.0% ([facility]),Diabetic peripheral neuropathy ([facility]),Type 2 diabetes mellitus with stage 3a chronic kidney disease, unspecified whether butcher apprentice insulin use ([facility]) Check sugar before meals, at night time and as needed for motoring sugar . Dx -E.11.9 and E11.65 1 Kit 11/13/19 24 Active Levothyroxine Sodium 88 MCG Oral Tablet (Levoxyl)Indicati ons:Acquired hypothyroidism TAKE 1 TABLET BY MOUTH IN THE MORNING AT LEAST 30 MINUTES PRIOR TO BREAKFAST AND OTHER MEDS 90 Tablet 1 12/26/19 24 Active Atorvastatin Calcium 40 MG Oral Tablet (Lipitor)Indicati ons:Hyperlipidemi a LDL goal <100 TAKE 1 TABLET BY MOUTH EVERY DAY 90 Tablet 1 03/28/20 24 Active FreeStyle Frankie 14 Day [place] DeviceIndications :Type 2 diabetes mellitus with hemoglobin A1c goal of less than 8.0% ([facility]),Uncontrolle d type 2 diabetes mellitus with hyperglycemia ([facility]),Current use of insulin ([facility]) Use as directed. 1 Each 04/04/20 24 Active FreeStyle Frankie 3 Sensor Use as directed every 14 days. 2 Each 11 04/07/20 24 Active FreeStyle Frankie 3 [place] Device Use as directed. 1 Each 1 04/07/20 24 Active Lactulose 10 GM/15ML Oral Solution (Constulose)Indic ations:Neuroendoc rine carcinoma of stomach (HCC) Take 15 mL by mouth in the morning and 15 mL before bedtime. 946 mL 2 05/01/20 24 Active Insulin Glargine Solostar 100 UNIT/ML Subcutaneous Solution Pen-injector (Lantus SoloStar)Indicati ons:DM type 2, goal HbA1c < 7% (HCC) INJECT 38 UNITS DAILY BEFORE BEDTIME 45 mL 3 05/04/20 24 Active Spironolactone 50 MG Oral Tablet (Aldactone)Indica tions:after breakfast Take 1 Tablet by mouth daily. 90 Tablet 1 05/16/20 24 Active traZODone HCl 50 MG Oral Tablet (Desyrel)Indicati ons:Insomnia, unspecified type,Malignant neoplasm of stomach, unspecified location (HCC) Take 1 Tablet by mouth at bedtime. 90 Tablet 1 05/23/20 24 Active Ondansetron HCl 4 MG Oral TabletIndications :Nausea Take by mouth 1 Tablet every 8 hours as needed for Nausea. 30 Tablet 11/22/19 22 024 Disconti nued(Ref ill) Finasteride 5 MG Oral Tablet (Proscar) Take 1 Tablet by mouth in the morning. 12/20/19 23 024 Disconti nued(Pat ient preferen ce/disco ntinuati on) Trulicity 1.5 MG/0.5ML Subcutaneous Solution Pen-injector (Dulaglutide)Iveth cations:Type 2 diabetes mellitus with hemoglobin A1c goal of less than 8.0% ([facility]),Type 2 diabetes mellitus with stage 3a chronic kidney disease, unspecified whether butcher apprentice insulin use ([facility]) INJECT 1 SYRINGE SUBCUTANEOUSLY ONCE A WEEK 6 mL 3 01/22/20 24 024 Disconti nued(Pat ient preferen ce/disco ntinuati on) Vancomycin HCl 250 MG Oral Capsule (Vancocin)Indicat ions:Neuroendocri ne carcinoma of stomach (HCC) Take 1 Capsule by mouth every 6 hours. 120 Capsule 10/24 024 Disconti nued(Pat shaniquant shilohen ce/jerrio ntsylwia on) documented as of this encounter (statuses as of 05/29/2024) Active Problems Problem Noted Date Diagnosed Date [...] as of this encounter (statuses as of 05/29/2024) Resolved Problems Problem Noted Date Diagnosed Date [...] as of this encounter (statuses as of 05/29/2024) Immunizations Name Administration Dates Next Due COVID-19 [...] Sign Reading Time Taken Comments Blood Pressure 96/62 05/28/2024 1:57 PM EST Pulse 76 05/28/2024 1:57 PM EST Temperature - - Respiratory Rate 16 05/28/2024 1:57 PM EST Oxygen Saturation - - Inhaled Oxygen Concentration - - Weight 72.1 kg (159 lb) 05/28/2024 1:57 PM EST Height - - Body Mass Index 22.81 05/21/2024 10:23 AM EST documented in this encounter Functional Status * Are you deaf or do you have serious difficulty hearing? Answer Date of Assessment Author No 11/10/2021 3:04 AM EDGerman Browning RN * Are you blind or do you have serious difficulty seeing, even when wearing glasses? Answer Date of Assessment Author No 11/10/2021 3:04 AM German Magana RN * Do you have serious difficulty [...] Entry Date Author No 11/10/2021 3:04 AM EDT Dameon, Ja cob M, RN documented in this encounter Nursing Notes * Kaushik Eli LPN - 05/28/2024 1:56 PM EST Patient identified by full name and date of Chief Complaint Patient presents with Follow Up 7 month follow up. Questions about medications due to new medications. GI bleed and hospitalized [facility] 03/23-04/02/24. Still need to be on Eliquis? Metoprolol vs carvedilol or propanolol from a liverperspective? Diagnosed with an Neuroendocrine tumor. SOB due to abdominal issues. Denies chest pain, palpitations, dizziness and edema. Examination Room: 2 Name: Norris Francois Date of : (1945). Reason for Visit: 7 month follow up Interim Hospitalization(s): [facility] 03/23-04/02/24 Problems/Concerns: See chief complaint Chest Pain/SOB: See chief complaint [facility] Discussed: Not applicable [facility] is a way you can talk to [...] Care Team (Late st Contact Info) Description 06/09/2024 2:00 PM EST Office Visit Hematology/Oncology [facility] [address] [facility] [place] [address] Mónica Cantu MD [address] [place] [address] [place] [phone] 06/09/2024 2:30 PM EST Immunization/Inje ction Hematology/Oncology Treatment, [place] [address] [facility] [place] [address] Park, Chair 3 Hem Onc [address] [place], [place] [address] 06/11/2024 9:00 AM EST Office Visit Palliative Medicine [facility] [place] [address] [place], [place] [phone] Dorinda Lyn MD [address] [facility] [place] [address] 07/22/2024 9:40 AM EST Office Visit General Internal Medicine [facility] [place] [address] [place] [address] Lia Meadows MD [address] [place], [place] [address] 09/08/2024 3:20 PM EST Office Visit Hepatology, [facility] [address] [facility] [place] [address] Zabrina Ya DO [address] [facility] [address] 10/07/2024 1:40 PM EDT Office Visit Nephrology, [facility] [address] [place], [place] [address] Breezy Meadows MD [address] [place], [place] [address] 12/02/2024 10:00 AM EDT Office Visit Cardiology, [facility] [address] [facility] [address] Fallon Gifford CRNP [address] [facility] [place] [address] Scheduled Referrals Name Type Priority Associated Diagnoses Orde r Schedule CARDIOLOGY REFERRAL OP Referral Within 3 days (urgent) Hx of CABG Ordered: 05/23/2024 Health Maintenance Due Date Last Done Comments [...] exists Depression Screening 04/21/2025 04/21/2024 Albumin/Creatinine Ratio 05/23/202505/23/ 024, 08/23/2023, 07/26/2022, Additional history exists CKD HGB USE SMARTSET 32628 05/23/202505/23, 05/23/2024, 04/23/2024, Additional history exists CKD PHOS USE SMARTSET 08591 05/23/202505/09, 04/07/2024, 11/19/2023, Additional history exists TSH [...] this encounter Medical Devices Implanted Type Area Data Manager Device Identifier Shelf Expiration Date Model / Serial / Lot Suture Steel 6 B&S19 M654g - [id number] Implanted:Qty: 7 on 05/30/2021 by Uvaldo Fleming MD at [facility] N/A: Sternum JN[place] : [employer] 01/05/2026 M654G / / [id number] Lipiodol Injection - [id number] Implanted:Qty: 2 on 09/06/2021 at [facility] [employer] 10/06/2022 [id number] -2 / [id number] / [id number] Lipiodol Injection - [id number] Implanted:Qty: 1 on 09/06/2021 at [facility] [employer] 10/06/2022 [id number] -2 / [id number] / [id number] documented as of this encounter Visit Diagnoses Diagnosis Triple vessel coronary artery disease- Primary Coronary atherosclerosis of unspecified type of vessel, iqugmiut or graft S/P CABG x 3 Postsurgical aortocoronary bypass status 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) Ischemic cardiomyopathy Other specified forms of chronic ischemic heart disease PAF (paroxysmal atrial fibrillation) (HCC) Atrial fibrillation HTN, goal below 140/90 Unspecified essential hypertension Dyslipidemia, goal LDL below 70 Other and unspecified hyperlipidemia Moderate mitral regurgitation by prior echocardiogram Mitral valve disorders History of CVA (cerebrovascular accident) Transient ischemic attack (TIA), and cerebral infarction without residual deficits 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
--- OUTSIDE RECORDS SUMMARY | 2024-07-18 22:28 | External Medical Summary | Summary of Care ---
Author Name Unknown Organization [facility] Address [address] [address] Phone [phone] Care Team Providers Care Manager Online Name Role Phone Lia Meadows MD Primary Care Provider [phone] Reason for Visit * Reason Comments Follow Up 4 week follow up Encounter Details Date Type Department Care Team (Late st Contact Info) Description 06/09/2024 2:00 PM EST Office Visit Hematology/Oncology [facility] [place] [address] [place] [address] Mónica Cantu MD [address] [place] [address] [place] [address] Neuroendocrine carcinoma of stomach (HCC)*; Cirrhosis of liver with ascites, unspecified hepatic cirrhosis type (HCC) Allergies Active Allergy Reactions Criticality Noted Date Comments Sulfa Antibiotics Edema Other Medium 02/01/2016 Other reaction(s): unknown Tramadol Nausea/vomiting 04/01/2021 documented as of this encounter (statuses as of 06/17/2024) Medications Vitamin D3 50 MCG (1999) Oral [...] DM type 2, goal HbA1c < 7% ([facility]) Use as directed 4 times a day . Use up to 3-4 times a day as directed 100 Strip 5 11/22/19 22 Active BD Pen Needle Ozra U/F 32G X 4 MM (Insulin Pen Needle)Indications :Type 2 diabetes mellitus with hemoglobin A1c goal of less than 7.0% ([facility]) Use once daily with insulin 100 Each 5 03/20/20 22 Active Eliquis 5 MG Oral Tablet (Apixaban) TAKE 1 TABLET BY MOUTH IN THE MORNING AND BEFORE BEDTIME 180 Tablet 3 09/10/19 24 Active Furosemide 20 MG Oral Tablet (Lasix)Indications :Cirrhosis of liver with ascites, unspecified hepatic cirrhosis type ([facility]) Take 1 Tablet by mouth in the morning. 180 Tablet 1 10/09/19 24 Active Metoprolol Succinate ER 100 MG Oral Tablet Extended Release 24 Hour (toPROL XL)Indications:Eugenie lothorax, right,Coronary artery disease involving barrow coronary artery of barrow heart without angina pectoris,S/P CABG x 3,HFrEF (heart failure with reduced ejection fraction) ([facility]),Ischemic cardiomyopathy,PAF (paroxysmal atrial fibrillation) ([facility]),HTN, goal below 140/90,Dyslipidemi a, goal LDL below 70,Cerebrovascular accident (CVA), unspecified mechanism ([facility]) TAKE 1 TABLET BY MOUTH EVERY DAY IN THE MORNING AND BEFORE BEDTIME 180 Tablet 3 10/15/19 24 Active Additional Information Patient taking differently: 50 mg Oral BID (.AM/PM), Reported on 05/28/2024 Aspirin Low Dose 81 MG Oral Tablet Delayed Release (aspirin enteric coated)Indications :Coronary artery disease involving barrow coronary artery of barrow heart without angina pectoris,Ischemic cardiomyopathy,PAF (paroxysmal atrial fibrillation) ([facility]) TAKE 1 TABLET BY MOUTH EVERY DAY IN THE MORNING 90 Tablet 3 10/15/19 24 Active Additional Information Patient taking differently: 81 mg Oral EVERY OTHER DAY, Indications: sunday,wednesdays,fridays, Reported on 05/28/2024 Blood Glucose Monitoring Suppl w/Device KitIndications: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, unspecified whether chcf insulin use ([facility]),Type 2 diabetes mellitus with hemoglobin A1c goal of less than 8.0% ([facility]),Diabetic peripheral neuropathy ([facility]),Type 2 diabetes mellitus with stage 3a chronic kidney disease, unspecified whether chcf insulin use ([facility]) Check sugar before meals, at night time [...] 03/28/20 24 Active FreeStyle Frankie 14 Day Woodward DeviceIndications: Type 2 diabetes mellitus with hemoglobin A1c goal of less than 8.0% ([facility]),Uncontrolled type 2 diabetes mellitus with hyperglycemia ([facility]),Current use of insulin ([facility]) Use as directed. 1 Each 04/04/20 24 Active FreeStyle Frankie 3 Sensor Use as directed every 14 days. 2 Each 04/07/20 24 Active FreeStyle Frankie 3 Woodward Device Use as directed. 1 Each 1 04/07/20 24 Active Lactulose 10 GM/15ML Oral Solution (Constulose)Indica tions:Neuroendocri ne carcinoma of stomach (HCC) Take 15 mL by mouth in the morning and 15 mL before bedtime. 946 mL 2 05/01/20 24 Active Insulin Glargine Solostar 100 UNIT/ML Subcutaneous Solution Pen-injector (Lantus SoloStar)Indicatio ns:DM type 2, goal HbA1c < 7% ([facility]) INJECT 38 UNITS DAILY BEFORE BEDTIME 45 mL 3 05/04/20 24 Active Spironolactone 50 MG Oral Tablet (Aldactone)Indicat ions:after breakfast Take 1 Tablet by mouth daily. 90 Tablet 1 05/16/20 24 Active traZODone HCl 50 MG Oral Tablet (Desyrel)Indicatio ns:Insomnia, unspecified type,Malignant neoplasm of stomach, unspecified location ([facility]) Take 1 Tablet by mouth at bedtime. 90 Tablet 1 05/23/20 24 Active Ondansetron HCl 4 MG Oral TabletIndications: Nausea Take 1 Tablet by mouth every 8 hours as needed for Nausea. 30 Tablet 5 05/29/20 24 Active documented as of this encounter (statuses as of 06/17/2024) Active Problems Problem Noted Date Diagnosed Date [...] as of this encounter (statuses as of 06/17/2024) Resolved Problems Problem Noted Date Diagnosed Date [...] as of this encounter (statuses as of 06/17/2024) Immunizations Name Administration Dates Next Due COVID-19 [...] Sign Reading Time Taken Comments Blood Pressure 110/71 06/09/2024 2:25 PM EST Pulse 76 06/09/2024 2:25 PM EST Temperature 36.2 C (97.2 F) 06/09/2024 2:25 PM ES T Respiratory Rate - - Oxygen Saturation 96% 06/09/2024 2:25 PM EST Inhaled Oxygen Concentration - - Weight 72.4 kg (159 lb 11.2 oz) 06/09/2024 2:25 PM EST Height - - Body Mass Index 22.91 05/21/2024 10:23 AM EST documented in this [...] Date Author No 11/10/2021 3:04 AM EDT German Xiao RN documented in this encounter Progress Notes * Mónica Cantu MD - 06/09/2024 2:54 PM EST Date of visit: 06/09/2024 HPI: Norris Francois is a 78 year old male presents for 4 week follow up and to receive the next dose of Octreotide. No significant improvement reported by the patient Presents for the clinic appt by himself- his son is traveling to [place]. No bleeding reported CLD- symptoms + Abd distension + No tap needed however. Reports missed palliative care appt and the next appt in 07/2024. 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 Type 2 diabetes mellitus with hemoglobin A1c goal of less than 8.0% (HCC) Pericardial effusion History of CVA (cerebrovascular accident) HFrEF (heart failure with reduced ejection fraction) (HCC) Esophageal varices without bleeding (HCC) Cirrhosis of liver with ascites (HCC) Degenerative disease of nervous system, unspecified (HCC) Thrombocytopenia (HCC) Diabetic peripheral neuropathy (HCC) Chronic kidney disease, stage 3b (HCC) 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 Vitamin C 500 MG Oral Tablet (Ascorbic Acid) Take 1 Tablet by mouth in the morning. Nitroglycerin 0.4 MG Sublingual Tablet Sublingual (Nitrostat) Place 1 Tablet under the tongue every5 minutes as needed for Pain, Chest. (Patient not taking: Reported on 11/19/2023) OneTouch Ultra Blue In Vitro Strip (Glucose Blood) Use as directed 4 times a day . Use up to 3-4 times a day as directed 100 Strip 5 BD Pen Needle Zora U/F 32G X 4 MM (Insulin Pen Needle) Use once daily with insulin 100 Each 5 Eliquis 5 MG Oral Tablet (Apixaban) TAKE 1 TABLET BY MOUTH IN THE MORNING AND BEFORE BEDTIME 180 Tablet 3 Furosemide 20 MG Oral Tablet (Lasix) Take 1 Tablet by mouth in the morning. 180 Tablet 1 Metoprolol Succinate ER 100 MG Oral Tablet Extended Release 24 Hour (toPROL XL) TAKE 1 TABLET BY MOUTH EVERY DAY IN THE MORNING AND BEFORE BEDTIME (Patient taking differently: Take 0.5 Tablets by mouth in the morning and 0.5 Tablets before bedtime.) 180 Tablet 3 Aspirin Low Dose 81 MG Oral Tablet Delayed Release (aspirin enteric coated) TAKE 1 TABLET BY MOUTH EVERY DAY IN THE MORNING (Patient taking differently: Take 1 Tablet by mouth every other day.) 90 Tablet 3 Blood Glucose Monitoring Suppl w/Device Kit Check sugar before meals, at night time and as needed for motoring sugar . Dx -E.11.9 and E11.65 1 Kit 0 Levothyroxine Sodium 88 MCG Oral Tablet (Levoxyl) TAKE 1 TABLET BY MOUTH IN THE MORNING AT LEAST 30MINUTES PRIOR TO BREAKFAST AND OTHER MEDS 90 Tablet 1 Atorvastatin Calcium 40 MG Oral Tablet (Lipitor) TAKE 1 TABLET BY MOUTH EVERY DAY 90 Tablet 1 FreeStyle Frankie 14 Day Woodward Device Use as directed. 1 Each 0 FreeStyle Frankie 3 Sensor Use as directed every 14 days. 2 Each 11 FreeStyle Frankie 3 [place]ward Device Use as directed. 1 Each 1 Lactulose 10 GM/15ML Oral Solution (Constulose) Take 15 mL by mouth in the morning and 15 mL beforebedtime. 946 mL 2 Insulin Glargine Solostar 100 UNIT/ML Subcutaneous Solution Pen-injector (Lantus SoloStar) INJECT 38 UNITS DAILY BEFORE BEDTIME 45 mL 3 Spironolactone 50 MG Oral Tablet (Aldactone) Take 1 Tablet by mouth daily. 90 Tablet 1 traZODone HCl 50 MG Oral Tablet (Desyrel) Take 1 Tablet by mouth at bedtime. 90 Tablet 1 Ondansetron HCl 4 MG Oral Tablet Take 1 Tablet by mouth every 8 hours as needed for Nausea. 30 Tablet 5 No current facility-administered medications for this visit. Review of patient's allergies indicates: Allergen Reactions Sulfa Antibiotics Edema Other Other reaction(s): unknown Tramadol Nausea/vomiting Objective BP 110/71 (BP Site: Left Arm, BP Position: Sitting, BP Cuff Size: Regular) | Pulse 76 | Temp 36.2 C (97.2 F) (Tympanic) | Wt 72.4 kg (159 lb 11.2 oz) | SpO2 96% | BMI 22.91 kg/m | BSA 1.89 m ASSESSMENT/PLAN: There are no diagnoses linked to this encounter. Follow-up: Return in about 4 weeks (around 07/07/2024). | Check-out note: Continue current treatment with octreotide injection 06/09/2024 Follow up with me in 4 weeks with same treatment with lab work prior to the visit. Mónica Cantu MD documented in this encounter Nursing Notes * Gauri Jenkins CMA - 06/09/2024 2:26 PM EST Patient identifed by name and birthdate Do you have any concerns about pain management for today's visit? No Living Will or Advance Directive for Health Care as noted on the problem list. [facility] is a way you can talk to your provider on line through e-mail. Would you like to sign up? I can activate it for you? ALREADY ACTIVE Filed Vitals: 06/09/24 1425 BP: 110/71 Pulse: 76 Temp: 36.2 C (97.2 F) TempSrc: Tympanic SpO2: 96% Weight: 72.4 kg (159 lb 11.2 oz) Patient was instructed to not get up on the exam table/exam chair until directed and assisted by their provider; patient is to remain seated in the chair/ wheelchair/ exam table/ exam chair for fall prevention and safety reasons. Patient is aware to have assistance to step down off exam table/exam chair with personnel. Patient voiced full comprehension of instructions. documented in this encounter Plan of Treatment Upcoming Encounters Date Type Department Care Team (Late st Contact Info) Description 07/07/2024 1:30 PM EST Laboratory Laboratory [facility] [address] [place] [phone] [place] [place] [address] 07/07/2024 2:00 PM EST Office Visit Hematology/Oncology [facility] [address] [facility] [place], [place] [phone] Mónica Cantu MD [address] [place] [address] 07/07/2024 2:30 PM EST Immunization/Injecti on Hematology[facility]cology [facility], [place] [address] [facility] [phone] 07/22/2024 9:40 AM EST Office Visit General Internal Medicine [facility] [address] [facility] [place] [address] Lia Meadows MD [address] [facility] [place] [address] 09/08/2024 3:20 PM EST Office Visit Hepatology, [facility] [address] [facility] [place] [address] Zabrina Ya DO [address] [facility] [place] [address] 10/07/2024 1:40 PM EDT Office Visit Nephrology, [facility] [address] [facility] [place], [place] [address] Breezy Meadows MD [address] [facility] [place] [address] 12/02/2024 10:00 AM EDT Office Visit Cardiology, [facility] [address] [facility] [place] [address] Fallon Gifford CRNP [address] [address] Health Maintenance Due Date Last Done Comments [...] Additional history exists CKD HGB USE SMARTSET 79550 05/23/202505/23, 05/23/2024, 04/23/2024, Additional history exists CKD PHOS USE SMARTSET 29188 05/23/202505/09, 04/07/2024, 11/19/2023, Additional history exists TSH [...] this encounter Medical Devices Implanted Type Area Board Saw Runner Device Identifier Shelf Expiration Date Model / Serial / Lot Suture Steel 6 B&S19 [id number] - [id number] Implanted:Qty: 7 on 05/30/2021 by Uvaldo Fleming MD at [facility] N/A: Sternum JNJ : [employer] 01/05/2026 [id number] / / [id number] Lipiodol Injection - [id number] Implanted:Qty: 2 on 09/06/2021 at [facility] [employer] 10/06/2022 [id number] -[id number] / [id number] / [id number] Lipiodol Injection - [id number] Implanted:Qty: 1 on 09/06/2021 at [facility] [employer] 10/06/2022 [id number] -[id number] / [id number] / [id number] documented as of this encounter Visit Diagnoses Diagnosis Neuroendocrine carcinoma of stomach (HCC)- Primary Cirrhosis of liver with ascites, unspecified hepatic cirrhosis type (HCC) documented in this encounter Advance Directives * [...] Advance Directives occurred with: Patient Care Teams Manager Online Relationship Specialty Start Date End Date Lia Meadows MD [address] [place] [address] PCP - General Internal Medicine 04/06/21 documented as of this encounter"
--- OUTSIDE RECORDS SUMMARY | 2024-07-18 22:28 | External Medical Summary | Summary of Care ---
Author Name Unknown Organization [facility] Address [address] [place] [address] Phone [phone] Care Team Providers Care Station Gateman Name Role Phone Lia Kilgore MD Primary Care Provider [phone] Reason for Visit * Reason Onset Date Comments Medication Refill 06/18/2024 Encounter Details Date Type Department Care Team (Late st Contact Info) Description 06/18/2024 Refill General Internal Medicine [facility] [place] [address] [facility] [place] [address] Lia Kilgore MD 200 [place] [address] Type 2 diabetes mellitus with hemoglobin A1c goal of less than 7.0% ([facility]) Allergies Active Allergy Reactions Criticality Noted Date Comments Sulfa Antibiotics Edema Other Medium 02/01/2016 Other reaction(s): unknown Tramadol Nausea/vomiting 04/01/2021 documented as of this encounter (statuses as of 06/19/2024) Medications Vitamin D3 50 MCG (1999) Oral [...] DM type 2, goal HbA1c < 7% ([facility]) Use as directed 4 times a day . Use up to 3-4 times a day as directed 100 Strip 5 11/22/19 22 Active Eliquis 5 MG Oral Tablet (Apixaban) TAKE 1 TABLET BY MOUTH IN THE MORNING AND BEFORE BEDTIME 180 Tablet 3 09/10/19 24 Active Furosemide 20 MG Oral Tablet (Lasix)Indications :Cirrhosis of liver with ascites, unspecified hepatic cirrhosis type ([facility]) Take 1 Tablet by mouth in the morning. 180 Tablet 1 10/09/19 24 Active Metoprolol Succinate ER 100 MG Oral Tablet Extended Release 24 Hour (toPROL XL)Indications:Eugenie lothorax, right,Coronary artery disease involving [place] coronary artery of [place] heart without angina pectoris,S/P CABG x 3,HFrEF (heart failure with reduced ejection fraction) ([facility]),Ischemic cardiomyopathy,PAF (paroxysmal atrial fibrillation) ([facility]),HTN, goal below 140/90,Dyslipidemi a, goal LDL below 70,Cerebrovascular accident (CVA), unspecified mechanism ([facility]) TAKE 1 TABLET BY MOUTH EVERY DAY IN THE MORNING AND BEFORE BEDTIME 180 Tablet 3 10/15/19 24 Active Additional Information Patient taking differently: 50 mg Oral BID (.AM/PM), Reported on 05/28/2024 Aspirin Low Dose 81 MG Oral Tablet Delayed Release (aspirin enteric coated)Indications :Coronary artery disease involving [place] coronary artery of [place] heart without angina pectoris,Ischemic cardiomyopathy,PAF (paroxysmal atrial fibrillation) ([facility]) TAKE 1 TABLET BY MOUTH EVERY DAY IN THE MORNING 90 Tablet 3 10/15/19 24 Active Additional Information Patient taking differently: 81 mg Oral EVERY OTHER DAY, Indications: sunday,wednesdays,fridays, Reported on 05/28/2024 Blood Glucose Monitoring Suppl w/Device KitIndications: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, unspecified whether jail insulin use ([facility]),Type 2 diabetes mellitus with hemoglobin A1c goal of less than 8.0% ([facility]),Diabetic peripheral neuropathy ([facility]),Type 2 diabetes mellitus with stage 3a chronic kidney disease, unspecified whether jail insulin use ([facility]) Check sugar before meals, at night [...] 03/28/20 24 Active FreeStyle Frankie 14 Day [place] DeviceIndications: Type 2 diabetes mellitus with hemoglobin A1c goal of less than 8.0% ([facility]),Uncontrolled type 2 diabetes mellitus with hyperglycemia (HCC),Current use of insulin (HCC) Use as directed. 1 Each 04/04/20 24 Active FreeStyle Frankie 3 Sensor Use as directed every 14 days. 2 Each 04/07/20 24 Active FreeStyle Frankie 3 [place] Device Use as directed. 1 Each 1 04/07/20 24 Active Lactulose 10 GM/15ML Oral Solution (Constulose)Indica tions:Neuroendocri ne carcinoma of stomach (HCC) Take 15 mL by mouth in the morning and 15 mL before bedtime. 946 mL 2 05/01/20 24 Active Insulin Glargine Solostar 100 UNIT/ML Subcutaneous Solution Pen-injector (Lantus SoloStar)Indicatio ns:DM type 2, goal HbA1c < 7% ([facility]) INJECT 38 UNITS DAILY BEFORE BEDTIME 45 [...] hemoglobin A1c goal of less than 7.0% ([facility]) Use once daily with insulin 100 Each 5 06/19/20 24 Active BD Pen Needle Zora U/F 32G X 4 MM (Insulin Pen Needle)Indications :Type 2 diabetes mellitus with hemoglobin A1c goal of less than 7.0% (HCC) Use once daily with insulin 100 Each 5 03/20/20 22 024 Discontin ued(Refil l) documented as of this encounter (statuses as of 06/19/2024) Active Problems Problem Noted Date Diagnosed Date [...] as of this encounter (statuses as of 06/19/2024) Resolved Problems Problem Noted Date Diagnosed Date [...] as of this encounter (statuses as of 06/19/2024) Immunizations Name Administration Dates Next Due COVID-19 [...] 11/10/2021 3:04 AM German Magana RN * Because of a physical, mental, [...] encounter Miscellaneous Notes * Telephone Encounter - Lia Kilgore MD - 06/19/2024 2:28 PM ESTSigned Prescriptions: Disp Refills BD Pen Needle Zora U/F 32G X 4 MM (Insulin*100 Ea*5 Sig: Use once daily with insulin Authorizing Provider: LIA KILGORE * Telephone Encounter - [facility] - 06/19/2024 1:51 PM EST Pending Prescriptions: Disp Refills BD Pen Needle Zora U/F 32G X 4 MM (Insulin*100 Ea*5 Sig: Use once daily with insulin * Telephone Encounter - [facility] - 06/19/2024 1:51 PM EST Pending Prescriptions: Disp Refills BD Pen Needle Zora U/F 32G X 4 MM (Insuli*100 Ea*5 Sig: Use once daily with insulin Last Visit: 04/21/2024 (in office), Visit date not found (telemedicine) Next Visit: 07/22/2024 If no future appointments scheduled, and last appointment is greater than a year ago, please schedule patient for a follow-up appointment Last date the medication was ordered: 03/20/22 Pharmacy: [id number] [facility] Is this request for a controlled substance? No Urine Drug Screen:No results found for this or any previous visit. Patient Phone Numbers Labs: Lab Results Component Value Date/Time CREAT 2.7 (H) 05/23/2024 10:00 AM CREAT 1.78 (A) 04/07/2024 12:00 AM POTASSIUM 4.4 05/23/2024 10:00 AM POTASSIUM 3.7 04/07/2024 12:00 AM TSH 2.34 05/23/2024 10:00 AM TSH 3.49 02/22/2021 12:00 AM LDL 15 05/23/2024 10:00 AM LDLCALC 64 02/22/2021 12:00 AM ALT 11 05/23/2024 10:00 AM HGBA1C 6.0 (H) 05/23/2024 10:00 AM HGBA1C 6.9 (H) 09/16/2021 11:38 AM HGBA1C 6.6 (A) 02/22/2021 12:00 AM documented in this encounter Plan of Treatment Upcoming Encounters Date Type Department Care Team (Late st Contact Info) Description 07/07/2024 1:30 PM EST Laboratory Laboratory [facility] [place] [address] [facility] [place] [phone] Mone Dotson [address] [facility] [place] [address] 07/07/2024 2:00 PM EST Office Visit Hematology/Oncology [facility] [place] [address] [place] [address] Mónica Cantu MD [address] [facility] [place] [address] 07/07/2024 2:30 PM EST Immunization/Injecti on Hematology/Oncology Treatment, [place] [address] [facility] [place] [address] 07/22/2024 9:40 AM EST Office Visit General Internal Medicine [facility] Nila [place] [address] [place] [address] Lia Kilgore MD [address] [facility] [place] [address] 09/08/2024 3:20 PM EST Office Visit Hepatology, [facility] [address] [facility] [place] [address] Zabrina Ya DO [address] [place] [address] 10/07/2024 1:40 PM EDT Office Visit Nephrology, [facility] [address] [facility] [place], [place] [address] Breezy Kilgore MD [address] [facility] [place] [address] 12/02/2024 10:00 AM EDT Office Visit Cardiology, [facility] [address] [place] [address] Fallon Gifford CRNP [address] [facility] [place], [place] [phone] Health Maintenance Due Date Last Done Comments Zoster Vaccines (1 of 2) 1996 Hepatitis B Vaccine (1 of 3 - Risk 3-dose series) 2006 Adult Wellness Visit 2012 COVID-19 Vaccine ( season) 2024 05/09/2021, 10/12/2020, 09/22/2020 Diabetic Foot Exam 06/13/2024 06/13/2023, 1 , 05/05/2021 GFR 11/20/2024 05/23/2024, 10/0 09/2023, 04/07/2024, Additional history exists HbA1c 11/20/2024 05/23/2024, 08/09, 03/02/2023, Additional history exists Diabetic Eye Exam 01/24/2025 01/25/2024, , 11/09/2023, Additional history exists Depression Screening 04/21/2025 04/21/2024 Albumin/Creatinine Ratio 05/23/202505/23/2 024, 08/23/2023, 07/26/2022, Additional history exists CKD HGB USE SMARTSET 38191 05/23/202505/23, 05/23/2024, 04/23/2024, Additional history exists CKD PHOS USE SMARTSET 52406 05/23/202505/09, 04/07/2024, 11/19/2023, Additional history exists TSH [...] this encounter Medical Devices Implanted Type Area Regulatory Affairs Portfolio Leader Device Identifier Shelf Expiration Date Model / Serial / Lot Suture Steel 6 B&S19 M654g - [id number] Implanted:Qty: 7 on 05/30/2021 by Uvaldo Fleming MD at [facility] N/A: Sternum JNJ : [employer] 01/05/2026 M654G / / [id number] Lipiodol Injection - [id number] Implanted:Qty: 2 on [facility] [employer] 10/06/2022 [address] -2 / [id number] / [id number] Lipiodol Injection - [id number] Implanted:Qty: 1 on 09/06/2021 [facility] [employer] 10/06/2022 [id number] -2 / [id number] / [id number] documented as of this encounter Visit Diagnoses Diagnosis Type 2 diabetes mellitus with hemoglobin A1c goal of less than 7.0% (HCC) documented in this encounter Advance Directives [...] Advance Directives occurred with: Patient Care Teams Station Gateman Relationship Specialty Start Date End Date Lia Kilgore MD [address] [place] [address] PCP - General Internal Medicine 04/06/21 documented as of this encounter
--- OUTSIDE RECORDS SUMMARY | 2024-07-18 22:28 | External Medical Summary | Summary of Care ---
Author Name Unknown Organization [facility] Address [address] [place] [facility] [place] [address] Phone [phone] Care Team Providers Care Insurance Claims Clerk Name Role Phone Lia Meadows MD Primary Care Provider [phone] Encounter Details Date Type Department Care Team (Late st Contact Info) Description 05/27/2024 Orders Only Gastroenterology, [facility] [address] [place] [address] Zabrina Ya DO [address] [place] [address] Cirrhosis of liver with ascites, unspecified hepatic cirrhosis type (HCC)* Allergies Active Allergy Reactions Criticality Noted Date Comments Sulfa Antibiotics Edema Other Medium 02/01/2016 Other reaction(s): unknown Tramadol Nausea/vomiting 04/01/2021 documented as of this encounter (statuses as of 05/27/2024) Medications Vitamin D3 50 MCG (1999) Oral [...] DM type 2, goal HbA1c < 7% ([facility]) Use as directed 4 times a day . Use up to 3-4 times a day as directed 100 Strip 5 11/22/19 22 Active BD Pen Needle Zora U/F 32G X 4 MM (Insulin Pen Needle)Indications :Type 2 diabetes mellitus with hemoglobin A1c goal of less than 7.0% ([facility]) Use once daily with insulin 100 Each 5 03/20/20 22 Active Finasteride 5 MG Oral Tablet (Proscar) Take 1 Tablet by mouth in the morning. 12/20/19 23 Active Eliquis 5 MG Oral Tablet (Apixaban) TAKE 1 TABLET BY MOUTH IN THE MORNING AND BEFORE BEDTIME 180 Tablet 3 09/10/19 24 Active Furosemide 20 MG Oral Tablet (Lasix)Indications :Cirrhosis of liver with ascites, unspecified hepatic cirrhosis type ([facility]) Take 1 Tablet by mouth in the morning. 180 Tablet 1 10/09/19 24 Active Metoprolol Succinate ER 100 MG Oral Tablet Extended Release 24 Hour (toPROL XL)Indications:Eugenie lothorax, right,Coronary artery disease involving [place] coronary artery of [place] heart without angina pectoris,S/P CABG x 3,HFrEF (heart failure with reduced ejection fraction) ([facility]),Ischemic cardiomyopathy,PAF (paroxysmal atrial fibrillation) ([facility]),HTN, goal below 140/90,Dyslipidemi a, goal LDL below 70,Cerebrovascular accident (CVA), unspecified mechanism ([facility]) TAKE 1 TABLET BY MOUTH EVERY DAY IN THE MORNING AND BEFORE BEDTIME 180 Tablet 3 10/15/19 24 Active Additional Information Patient taking differently: 50 mg Oral BID (.AM/PM), Reported on 05/23/2024 Aspirin Low Dose 81 MG Oral Tablet Delayed Release (aspirin enteric coated)Indications :Coronary artery disease involving [place] coronary artery of [place] heart without angina pectoris,Ischemic cardiomyopathy,PAF (paroxysmal atrial fibrillation) ([facility]) TAKE 1 TABLET BY MOUTH EVERY DAY IN THE MORNING 90 Tablet 3 10/15/19 24 Active Additional Information Patient taking differently: 81 mg Oral EVERY OTHER DAY, Indications: sunday,wednesdays,fridays, Reported on 10/16/2023 Blood Glucose Monitoring Suppl w/Device KitIndications: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, unspecified whether joint terminal attack controller insulin use (HCC),Type 2 diabetes mellitus with hemoglobin A1c goal of less than 8.0% (HCC),Diabetic peripheral neuropathy (HCC),Type 2 diabetes mellitus with stage 3a chronic kidney disease, unspecified whether retirement insulin use (HCC) Check sugar before meals, [...] stage 3a chronic kidney disease, unspecified whether joint terminal attack controller insulin use ([facility]) INJECT 1 SYRINGE SUBCUTANEOUSLY ONCE A WEEK 6 mL 3 01/22/20 24 Active Additional Information Patient not taking.Reported on 05/23/2024 Atorvastatin Calcium 40 MG Oral Tablet (Lipitor)Indicatio ns:Hyperlipidemia LDL goal <100 TAKE 1 TABLET BY MOUTH EVERY DAY 90 Tablet 1 03/28/20 24 Active FreeStyle Frankie 14 Day [place] DeviceIndications: Type 2 diabetes mellitus with hemoglobin A1c goal of less than 8.0% (HCC),Uncontrolled type 2 diabetes mellitus with hyperglycemia (HCC),Current use of insulin (HCC) Use as directed. 1 Each 04/04/20 24 Active FreeStyle Frankie 3 Sensor Use as directed every 14 days. 2 Each 04/07/20 24 Active FreeStyle Frankie 3 [place] Device Use as directed. 1 Each 1 04/07/20 24 Active Vancomycin HCl 250 MG Oral Capsule (Vancocin)Indicati ons:Neuroendocrine carcinoma of stomach (HCC) Take 1 Capsule by mouth every 6 hours. 120 Capsule 05/01/20 24 024 Active Additional Information Patient not taking.Reported on 05/23/2024 Lactulose 10 GM/15ML Oral Solution (Constulose)Indica tions:Neuroendocri ne carcinoma of stomach (HCC) Take 15 mL by mouth in the morning and 15 mL before bedtime. 946 mL 2 10/24/20 24 Active Insulin Glargine Solostar 100 UNIT/ML Subcutaneous Solution Pen-injector (Lantus SoloStar)Indicatio ns:DM type 2, goal HbA1c < 7% (HCC) INJECT 38 UNITS DAILY BEFORE BEDTIME 45 mL 3 05/04/20 Active Spironolactone 50 MG Oral Tablet (Aldactone)Indicat ions:after breakfast Take 1 Tablet by mouth daily. 90 Tablet 1 05/16/20 Active traZODone HCl 50 MG Oral Tablet (Desyrel)Indicatio ns:Insomnia, unspecified type,Malignant neoplasm of stomach, unspecified location (HCC) Take 1 Tablet by mouth at bedtime. 90 Tablet 1 05/23/20 Active documented as of this encounter (statuses as of 05/27/2024) Active Problems Problem Noted Date Diagnosed Date [...] as of this encounter (statuses as of 05/27/2024) Resolved Problems Problem Noted Date Diagnosed Date [...] as of this encounter (statuses as of 05/27/2024) Immunizations Name Administration Dates Next Due COVID-19 [...] EDGerman Browning RN * Do you have serious difficulty walking or climbing stairs? (5 years old or older) Answer Date of Assessment Author Yes 11/10/2021 3:04 AM EDT [place], Ja cob M, RN * Do you have difficulty dressing [...] German Xiao RN documented in this encounter Plan of Treatment Upcoming Encounters Date Type Department Care Team (Late st Contact Info) Description 05/28/2024 2:00 PM EST Office Visit Cardiology, [facility] [address] [facility] [place] [address] Fallon Gifford CRNP [address] [place] [id number] 06/09/2024 2:00 PM EST Office Visit Hematology/Oncology [address] [phone] Mónica Cantu MD [address] [place] [phone] 06/09/2024 2:30 PM EST Immunization/Inje ction Hematology/Oncology Treatment, [address] [phone] Nila, Chair 3 Hem Onc [address] [address] 06/11/2024 9:00 AM EST Office Visit Palliative Medicine [address] [phone] Dorinda Lyn [facility] [address] [facility] [place] [address] 07/22/2024 9:40 AM EST Office Visit General Internal Medicine [facility] 200 [facility] [place] [address] Lia Mead[place] MD [address] [facility] [place] [id number] 09/08/2024 3:20 PM EST Office Visit Hepatology, [facility] [address] [place] [address] Zabrina Ya DO [address] [facility] [place] [address] 10/07/2024 1:40 PM EDT Office Visit Nephrology, [facility] [address] [facility] [place] [address] Breezy Meadows MD 200 [facility] [place], [place] [address] Health Maintenance Due Date Last Done Comments [...] exists Depression Screening 04/21/2025 04/21/2024 Albumin/Creatinine Ratio 05/23/2025 024, 08/23/2023, 07/26/2022, Additional history exists CKD HGB USE SMARTSET 42153 05/23/202505/23, 05/23/2024, 04/23/2024, Additional history exists CKD PHOS USE SMARTSET 27845 05/23/202505/09, 04/07/2024, 11/19/2023, Additional history exists TSH [...] this encounter Medical Devices Implanted Type Area Dealmaker Device Identifier Shelf Expiration Date Model / Serial / Lot Suture Steel 6 B&S19 M654g - [id number] Implanted:Qty: 7 on 05/30/2021 by Uvaldo Fleming MD at [facility] N/A: Sternum JNJ : [employer] 01/05/2026 M654G / / [id number] Lipiodol Injection - [id number] Implanted:Qty: 2 on 09/06/2021 at [employer] [facility] [employer] 10/06/2022 [id number] -2 / [id number] / [id number] Lipiodol Injection - [id number] Implanted:Qty: 1 on 09/06/2021 at [employer] [facility] [employer] 10/06/2022 [id number] -2 / [id number] / [id number] documented as of this encounter Visit Diagnoses Diagnosis Cirrhosis of liver with ascites, unspecified hepatic cirrhosis type (HCC)- Primary documented in this encounter Advance Directives * [...] Advance Directives occurred with: Patient Care Teams Insurance Claims Clerk Relationship Specialty Start Date End Date Lia Meadows MD [address] [place] [address] PCP - General Internal Medicine 04/06/21 documented as of this encounter
--- OUTSIDE RECORDS SUMMARY | 2024-07-18 22:28 | External Medical Summary | Summary of Care ---
Author Name Unknown Organization [facility] Address [address] [place] [facility] [place] [address] Phone [phone] Care Team Providers Care National Park Tour Guide Name Role Phone Lia Meadows MD Primary Care Provider [phone] Reason for Visit * Reason Onset Date Comments Order Request 05/26/2024 Encounter Details Date Type Department Care Team (Late st Contact Info) Description 05/26/2024 Telephone Gastroenterology, [facility] [address] [place] [address] Zabrina Ya DO [address] [place] [address] Order Request Allergies Active Allergy Reactions Criticality Noted Date Comments Sulfa Antibiotics Edema Other Medium 02/01/2016 Other reaction(s): unknown Tramadol Nausea/vomiting 04/01/2021 documented as of this encounter (statuses as of 05/26/2024) Medications Vitamin D3 50 MCG (1999) Oral [...] DM type 2, goal HbA1c < 7% ([facility]) Use as directed 4 times a day . Use up to 3-4 times a day as directed 100 Strip 5 11/22/19 22 Active BD Pen Needle Zora U/F 32G X 4 MM (Insulin Pen Needle)Indications :Type 2 diabetes mellitus with hemoglobin A1c goal of less than 7.0% ([facility]) Use once daily with insulin [...] liver with ascites, unspecified hepatic cirrhosis type ([facility]) Take 1 Tablet by mouth in the morning. 180 Tablet 1 10/09/19 24 Active Metoprolol Succinate ER 100 MG Oral Tablet Extended Release 24 Hour (toPROL XL)Indications:Eugenie lothorax, right,Coronary artery disease involving [place] coronary artery of [place] heart without angina pectoris,S/P CABG x 3,HFrEF (heart failure with reduced ejection fraction) ([facility]),Ischemic cardiomyopathy,PAF (paroxysmal atrial fibrillation) ([facility]),HTN, goal below 140/90,Dyslipidemi a, goal LDL below 70,Cerebrovascular accident (CVA), unspecified mechanism ([facility]) TAKE 1 TABLET BY MOUTH EVERY DAY IN THE MORNING AND BEFORE BEDTIME 180 Tablet 3 10/15/19 24 Active Additional Information Patient taking differently: 50 mg Oral BID (.AM/PM), Reported on 05/23/2024 Aspirin Low Dose 81 MG Oral Tablet Delayed Release (aspirin enteric coated)Indications :Coronary artery disease involving [place] coronary artery of [place] heart without angina pectoris,Ischemic cardiomyopathy,PAF (paroxysmal atrial fibrillation) ([facility]) TAKE 1 TABLET BY MOUTH EVERY DAY IN THE MORNING 90 Tablet 3 10/15/19 24 Active Additional Information Patient taking differently: 81 mg Oral EVERY OTHER DAY, Indications: sunday,wednesdays,fridays, Reported on 10/16/2023 Blood Glucose Monitoring Suppl w/Device KitIndications: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, unspecified whether intermediate school teacher insulin use (HCC),Type 2 diabetes mellitus with hemoglobin A1c goal of less than 8.0% (HCC),Diabetic peripheral neuropathy (HCC),Type 2 diabetes mellitus with stage 3a chronic kidney disease, unspecified whether intermediate school teacher insulin use (HCC) Check sugar before meals, [...] hemoglobin A1c goal of less than 8.0% ([facility]),Type 2 diabetes mellitus with stage 3a chronic kidney disease, unspecified whether chcf insulin use ([facility]) INJECT 1 SYRINGE SUBCUTANEOUSLY ONCE A WEEK 6 mL 3 01/22/20 24 Active Additional Information Patient not taking.Reported on 05/23/2024 Atorvastatin Calcium 40 MG Oral Tablet (Lipitor)Indicatio ns:Hyperlipidemia LDL goal <100 TAKE 1 TABLET BY MOUTH EVERY DAY 90 Tablet 1 03/28/20 24 Active FreeStyle Frankie 14 Day Randolph DeviceIndications: Type 2 diabetes mellitus with hemoglobin A1c goal of less than 8.0% (HCC),Uncontrolled type 2 diabetes mellitus with hyperglycemia (HCC),Current use of insulin (HCC) Use as directed. 1 Each 04/04/20 24 Active FreeStyle Frankie 3 Sensor Use as directed every 14 days. 2 Each 04/07/20 24 Active FreeStyle Frankie 3 Randolph Device Use as directed. 1 Each 1 [...] as of this encounter (statuses as of 05/26/2024) Active Problems Problem Noted Date Diagnosed Date [...] as of this encounter (statuses as of 05/26/2024) Resolved Problems Problem Noted Date Diagnosed Date [...] as of this encounter (statuses as of 05/26/2024) Immunizations Name Administration Dates Next Due COVID-19 [...] German Xiao RN documented in this encounter Miscellaneous Notes * Telephone Encounter - Emily Ceja OSA - 05/26/2024 10:30 AM EST Hello there can we have an order for the Paracentesis but as an IR Paracentesis then we call the patient to get scheduled thank you so much documented in this encounter Plan of Treatment Upcoming Encounters Date Type Department Care Team (Late st Contact Info) Description 05/28/2024 2:00 PM EST Office Visit Cardiology, [facility] 132 [facility] [place] [address] Fallon Gifford CRNP [address] [address] 06/09/2024 2:00 PM EST Office Visit [address]ematology/[address]cology [address] [phone] Mónica Cantu MD [address] [place] [phone] 06/09/2024 2:30 PM EST Immunization/Inje ction Hematology/Oncology Treatment, [place] [address] [facility], [place] [phone] Park, Chair 3 Hem Onc [place] [address] [address] [place], [place] [address] 06/11/2024 9:00 AM EST Office Visit Palliative Medicine [facility] [address] [facility], [place] [phone] Dorinda Lyn MD [address] [place] [address] [place] [address] 07/22/2024 9:40 AM EST Office Visit General Internal Medicine [facility] 200 [facility] [place], [place] [address] Lia Meadows MD 200 [facility] [place], [place] [address] 09/08/2024 3:20 PM EST Office Visit Hepatology, [facility] [address] [facility] [address] Zabrina Ya DO [address] [place] [address] 10/07/2024 1:40 PM EDT Office Visit Nephrology, [place] [address] [address] [place], [place] [address] Breezy Meadows MD 200 [facility] [place], [place] [address] Health Maintenance Due Date Last Done Comments Zoster Vaccines (1 of 2) 1996 Hepatitis B Vaccine (1 of 3 - Risk 3-dose series) 2006 Adult Wellness Visit 2012 COVID-19 Vaccine ( season) 2024 05/09/2021, 10/12/2020, 09/22/2020 Diabetic Foot Exam 06/13/2024 06/13/2023, 1 , 05/05/2021 GFR 11/20/2024 05/23/2024, 100 09/2023, 04/07/2024, Additional history exists HbA1c 11/20/2024 05/23/2024, 08/09, 03/02/2023, Additional history exists Diabetic Eye Exam 01/24/2025 01/25/2024, , 11/09/2023, Additional history exists Depression Screening 04/21/2025 04/21/2024 Albumin/Creatinine Ratio 05/23/202505/23/2 024, 08/23/2023, 07/26/2022, Additional history exists CKD HGB USE SMARTSET 63479 05/23/202505/23, 05/23/2024, 04/23/2024, Additional history exists CKD PHOS USE SMARTSET 35052 05/23/202505/09, 04/07/2024, 11/19/2023, Additional history exists TSH [...] this encounter Medical Devices Implanted Type Area Special Projects Coordinator Device Identifier Shelf Expiration Date Model / Serial / Lot Suture Steel 6 B&S19 M654g - [id number] Implanted:Qty: 7 on 05/30/2021 by Uvaldo Fleming MD at [place] [facility] [place] N/A: Sternum VICENTE : [employer] 01/05/2026 M654G / / [id number] Lipiodol Injection - [id number] Implanted:Qty: 2 on 09/06/2021 at [facility] [employer] 10/06/2022 [id number] -2 / [id number] / [id number] Lipiodol Injection - [id number] Implanted:Qty: 1 on 09/06/2021 at [facility] 10/06/2022 [id number] -2 / [id number] / [id number] documented as of this encounter Advance Directives [...] Advance Directives occurred with: Patient Care Teams National Park Tour Guide Relationship Specialty Start Date End Date Lia Meadows MD [address] [place] [address] [place], [place] [address] PCP - General Internal Medicine 04/06/21 documented as of this encounter
--- OUTSIDE RECORDS SUMMARY | 2024-07-18 22:28 | External Medical Summary | Summary of Care ---
Author Name Unknown Organization [facility] Address [address] [place] [facility] [place] [facility] [place] [address] Phone [phone] Care Team Providers Care Manual Lathe Operator Name Role Phone Lia Meadows MD Primary Care Provider [phone] Reason for Visit * Reason Onset Date Comments Order Request 05/26/2024 Encounter Details Date Type Department Care Team (Late st Contact Info) Description 05/26/2024 Telephone Gastroenterology, [facility] [address] [place] [address] Zabrina Ya DO [address] [place] [address] Order Request Allergies Active Allergy Reactions Criticality [...] 2, goal HbA1c < 7% ([facility]) Use as directed 4 times a day . Use up to 3-4 times a day as directed 100 Strip 5 11/22/19 22 Active BD Pen Needle Zora U/F 32G X 4 MM (Insulin Pen Needle)Indications :Type 2 diabetes mellitus with hemoglobin A1c goal of less than 7.0% ([facility]) Use once daily with insulin 100 [...] ascites, unspecified hepatic cirrhosis type ([facility]) Take 1 Tablet by mouth in the morning. 180 Tablet 1 10/09/19 24 Active Metoprolol Succinate ER 100 MG Oral Tablet Extended Release 24 Hour (toPROL XL)Indications:Eugenie lothorax, right,Coronary artery disease involving [place] coronary artery of [place] heart without angina pectoris,S/P CABG x 3,HFrEF (heart failure with reduced ejection fraction) ([facility]),Ischemic cardiomyopathy,PAF (paroxysmal atrial fibrillation) ([facility]),HTN, goal below 140/90,Dyslipidemi a, goal LDL below 70,Cerebrovascular accident (CVA), unspecified mechanism ([facility]) TAKE 1 TABLET BY MOUTH EVERY DAY IN THE MORNING AND BEFORE BEDTIME 180 Tablet 3 10/15/19 24 Active Additional Information Patient taking differently: 50 mg Oral BID (.AM/PM), Reported on 05/23/2024 Aspirin Low Dose 81 MG Oral Tablet Delayed Release (aspirin enteric coated)Indications :Coronary artery disease involving [place] coronary artery of [place] heart without angina pectoris,Ischemic cardiomyopathy,PAF (paroxysmal atrial fibrillation) ([facility]) TAKE 1 TABLET BY MOUTH EVERY DAY IN THE MORNING 90 Tablet 3 10/15/19 24 Active Additional Information Patient taking differently: 81 mg Oral EVERY OTHER DAY, Indications: sunday,wednesdays,fridays, Reported on 10/16/2023 Blood Glucose Monitoring Suppl w/Device KitIndications: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, unspecified whether duplication specialist insulin use (HCC),Type 2 diabetes mellitus with hemoglobin A1c goal of less than 8.0% (HCC),Diabetic peripheral neuropathy (HCC),Type 2 diabetes mellitus with stage 3a chronic kidney disease, unspecified whether duplication specialist insulin use (HCC) Check sugar before meals, [...] goal of less than 8.0% ([facility]),Type 2 diabetes mellitus with stage 3a chronic kidney disease, unspecified whether mcc insulin use ([facility]) INJECT 1 SYRINGE SUBCUTANEOUSLY ONCE A WEEK 6 mL 3 01/22/20 24 Active Additional Information Patient not taking.Reported on 05/23/2024 Atorvastatin Calcium 40 MG Oral Tablet (Lipitor)Indicatio ns:Hyperlipidemia LDL goal <100 TAKE 1 TABLET BY MOUTH EVERY DAY 90 Tablet 1 03/28/20 24 Active FreeStyle Frankie 14 Day Palmer DeviceIndications: Type 2 diabetes mellitus with hemoglobin A1c goal of less than 8.0% (HCC),Uncontrolled type 2 diabetes mellitus with hyperglycemia (HCC),Current use of insulin (HCC) Use as directed. 1 Each 04/04/20 24 Active FreeStyle Frankie 3 Sensor Use as directed every 14 days. 2 Each 04/07/20 24 Active FreeStyle Frankie 3 [place] Device Use as directed. 1 Each 1 [...] 05/28/2024 2:00 PM EST Office Visit Cardiology, [facility] 132 [facility] [place] [address] Fallon Gifford CRNP [address] [place] [address] 06/09/2024 2:00 PM EST Office Visit Hematology/Oncology [address] [phone] Mónica Cantu MD [address] [place] [phone] 06/09/2024 2:30 PM EST Immunization/Inje ction Hematology/Oncology Treatment, [place] 200 [facility], [place] [phone] Park, Chair 3 Hem Onc [place] [address] [address] [place], [place] [address] 06/11/2024 9:00 AM EST Office Visit Palliative Medicine [facility] 200 [facility], [place] [phone] Dorinda Lyn MD [address] [place] [address] [place] [address] 07/22/2024 9:40 AM EST Office Visit General Internal Medicine [facility] 200 [facility] [place], [place] [address] Lia Meadows MD 200 [facility] [place], [place] [address] 09/08/2024 3:20 PM EST Office Visit Hepatology, [facility] [address] [address] Zabrina Ya DO [address] [facility] [place] [address] 10/07/2024 1:40 PM EDT Office Visit Nephrology, [place] [address] [address] [place], [place] [address] Breezy Meadows MD 200 [facility] [place], [place] [address] Health Maintenance Due Date Last Done Comments [...] Additional history exists CKD HGB USE SMARTSET 72446 05/23/202505/23, 05/23/2024, 04/23/2024, Additional history exists CKD PHOS USE SMARTSET 44635 05/23/202505/09, 04/07/2024, 11/19/2023, Additional history exists TSH [...] this encounter Medical Devices Implanted Type Area Blister Packing Machine Tender Device Identifier Shelf Expiration Date Model / Serial / Lot Suture Steel 6 B&S19 M654g - [id number] Implanted:Qty: 7 on 05/30/2021 by Uvaldo Fleming MD at [place] [facility] N/A: Sternum VICENTE : [employer] 01/05/2026 M654G / / [id number] Lipiodol Injection - [id number] Implanted:Qty: 2 on 09/06/2021 at [facility] [employer] 10/06/2022 [id number] -2 / [id number] / [id number] Lipiodol Injection - [id number] Implanted:Qty: 1 on 09/06/2021 at [facility] [employer] 10/06/2022 [id number] -2 / [id number] / [id number] documented as of this encounter Visit Diagnoses [...] Advance Directives occurred with: Patient Care Teams Manual Lathe Operator Relationship Specialty Start Date End Date Lia Meadows MD 200 [facility] [place], [place] [address] PCP - General Internal Medicine 04/06/21 documented as of this encounter
--- OUTSIDE RECORDS SUMMARY | 2024-07-18 22:28 | External Medical Summary | Summary of Care ---
Author Name Unknown Organization [facility] Address [address] [place] [address] Phone [phone] Care Team Providers Care Nuclear Waste Process Operator Name Role Phone Lia Meadows MD Primary Care Provider [phone] Reason for Visit * Reason Comments Medication Administration Lanreotide * Episode Based Medications (Routine) - Authorized Specialty Diagnoses / Procedures Referred By Contac t Referred To Contact Diagnoses Neuroendocrine carcinoma of stomach (HCC) Procedures CT LANREOTIDE INJECTION Mónica Cantu MD [address] [place] [address] [place] [address] Phone: tel: fax: Hematology/Oncology Treatment, [address] [address] Phone: tel: fax: Referral ID Status Reason Start Date Expiration Date V isits Requested Visits Authorized [id number] Authorized 05/05/2024 07/08/2099 999 [id number] Encounter Details Date Type Department Care Team (Latest Contact Info) Description 06/09/2024 2:30 PM EST Immunization/ Injection Hematology/Oncology Treatment, [address] [place] [address] [place], Chair [address] Hem [address] [place] [address] Neuroendocrine carcinoma of stomach (HCC)* Allergies Active Allergy Reactions Criticality Noted Date Comments Sulfa Antibiotics Edema Other Medium 02/01/2016 Other reaction(s): unknown Tramadol Nausea/vomiting 04/01/2021 documented as of this encounter (statuses as of 06/09/2024) Medications Vitamin D3 50 MCG (1999) Oral [...] 2, goal HbA1c < 7% ([facility]) Use as directed 4 times a day . Use up to 3-4 times a day as directed 100 Strip 5 11/22/19 22 Active BD Pen Needle Zora U/F 32G X 4 MM (Insulin Pen Needle)Indications :Type 2 diabetes mellitus with hemoglobin A1c goal of less than 7.0% ([facility]) Use once daily with insulin 100 Each 5 03/20/20 22 Active Eliquis 5 MG Oral Tablet (Apixaban) TAKE 1 TABLET BY MOUTH IN THE MORNING AND BEFORE BEDTIME 180 Tablet 3 09/10/19 24 Active Furosemide 20 MG Oral Tablet (Lasix)Indications :Cirrhosis of liver with ascites, unspecified hepatic cirrhosis type ([facility]) Take 1 Tablet by mouth in the morning. 180 Tablet 1 10/09/19 24 Active Metoprolol Succinate ER 100 MG Oral Tablet Extended Release 24 Hour (toPROL XL)Indications:Eugenie lothorax, right,Coronary artery disease involving [place] coronary artery of [place] heart without angina pectoris,S/P CABG x 3,HFrEF (heart failure with reduced ejection fraction) ([facility]),Ischemic cardiomyopathy,PAF (paroxysmal atrial fibrillation) ([facility]),HTN, goal below 140/90,Dyslipidemi a, goal LDL below 70,Cerebrovascular accident (CVA), unspecified mechanism ([facility]) TAKE 1 TABLET BY MOUTH EVERY DAY IN THE MORNING AND BEFORE BEDTIME 180 Tablet 3 10/15/19 24 Active Additional Information Patient taking differently: 50 mg Oral BID (.AM/PM), Reported on 05/28/2024 Aspirin Low Dose 81 MG Oral Tablet Delayed Release (aspirin enteric coated)Indications :Coronary artery disease involving [place] coronary artery of [place] heart without angina pectoris,Ischemic cardiomyopathy,PAF (paroxysmal atrial fibrillation) ([facility]) TAKE 1 TABLET BY MOUTH EVERY DAY IN THE MORNING 90 Tablet 3 10/15/19 24 Active Additional Information Patient taking differently: 81 mg Oral EVERY OTHER DAY, Indications: sunday,wednesdays,fridays, Reported on 05/28/2024 Blood Glucose Monitoring Suppl w/Device KitIndications: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, unspecified whether penitentiary insulin use ([facility]),Type 2 diabetes mellitus with hemoglobin A1c goal of less than 8.0% ([facility]),Diabetic peripheral neuropathy ([facility]),Type 2 diabetes mellitus with stage 3a chronic kidney disease, unspecified whether penitentiary insulin use ([facility]) Check sugar before meals, at night time [...] 03/28/20 24 Active FreeStyle Frankie 14 Day Willis DeviceIndications: Type 2 diabetes mellitus with hemoglobin A1c goal of less than 8.0% ([facility]),Uncontrolled type 2 diabetes mellitus with hyperglycemia ([facility]),Current use of insulin ([facility]) Use as directed. 1 Each 04/04/20 24 Active FreeStyle Frankie 3 Sensor Use as directed every 14 days. 2 Each 04/07/20 24 Active FreeStyle Frankie 3 Willis Device Use as directed. 1 Each 1 04/07/20 24 Active Lactulose 10 GM/15ML Oral Solution (Constulose)Indica tions:Neuroendocri ne carcinoma of stomach (HCC) Take 15 mL by mouth in the morning and 15 mL before bedtime. 946 mL 2 05/01/20 24 Active Insulin Glargine Solostar 100 UNIT/ML Subcutaneous Solution Pen-injector (Lantus SoloStar)Indicatio ns:DM type 2, goal HbA1c < 7% ([facility]) INJECT 38 UNITS DAILY BEFORE BEDTIME 45 mL 3 05/04/20 Active Spironolactone 50 MG Oral Tablet (Aldactone)Indicat ions:after breakfast Take 1 Tablet by mouth daily. 90 Tablet 1 05/16/20 24 Active traZODone HCl 50 MG Oral Tablet (Desyrel)Indicatio ns:Insomnia, unspecified type,Malignant neoplasm of stomach, unspecified location (HCC) Take 1 Tablet by mouth at bedtime. 90 Tablet 1 05/23/20 Active Ondansetron HCl 4 MG Oral TabletIndications: Nausea Take 1 Tablet by mouth every 8 hours as needed for Nausea. 30 Tablet 5 05/29/20 24 Active documented as of this encounter (statuses as of 06/09/2024) Active Problems Problem Noted Date Diagnosed Date [...] as of this encounter (statuses as of 06/09/2024) Resolved Problems Problem Noted Date Diagnosed Date [...] as of this encounter (statuses as of 06/09/2024) Immunizations Name Administration Dates Next Due COVID-19 [...] 11/10/2021 3:04 AM German Magana RN * Are you blind or do [...] German Xiao RN documented in this encounter Nursing Notes * Mayda Barker LPN - 06/09/2024 3:33 PM EST Lanreotide 120mg administered IM into the left dorsogluteal muscle. Patient tolerated injection andwill return in 4 weeks. documented in this encounter Plan of Treatment Upcoming Encounters Date Type Department Care Team (Late st Contact Info) Description 07/07/2024 1:30 PM EST Laboratory Laboratory [address] [place] [phone] [place] [address] [facility] [place] [address] 07/07/2024 2:00 PM EST Office Visit Hematology/Oncology [facility] [place] [address] [place] [phone] Mónica Cantu MD [address] [place] [address] [place] [phone] 07/07/2024 2:30 PM EST Immunization/Injecti on Hematology/Oncology Treatment, [place] 200 [facility] [place] [address] 07/22/2024 9:40 AM EST Office Visit General Internal Medicine [facility] [place] [address] [place] [address] Lia Meadows MD 200 [facility] [place] [address] 09/08/2024 3:20 PM EST Office Visit Hepatology, [facility] [address] [place] [address] Zabrina Ya DO 132 [place] [address] 10/07/2024 1:40 PM EDT Office Visit Nephrology, [place] [address] [place] [address] Breezy Meadows MD [address] [place] [address] 12/02/2024 10:00 AM EDT Office Visit Cardiology, [facility] [address] [facility] [place] [address] Fallon Gifford CRNP 400 [facility] [place] [address] Health Maintenance Due [...] Additional history exists CKD HGB USE SMARTSET 32097 05/23/202505/23, 05/23/2024, 04/23/2024, Additional history exists CKD PHOS USE SMARTSET 62300 05/23/202505/09, 04/07/2024, 11/19/2023, Additional history exists TSH [...] this encounter Medical Devices Implanted Type Area Copy Coordinator Device Identifier Shelf Expiration Date Model / Serial / Lot Suture Steel 6 B&S19 M654g - [id number] Implanted:Qty: 7 on 05/30/2021 by Uvaldo Fleming MD at [facility] N/A: Sternum JN[place] : [employer] 01/05/2026 M654G / / [id number] Lipiodol Injection - [id number] Implanted:Qty: 2 on 09/06/2021 at [facility] [employer] 10/06/2022 [id number] -2 / [id number] / [id number] Lipiodol Injection - [id number] Implanted:Qty: 1 on 09/06/2021 at [facility] [employer] 10/06/2022 [id number] -2 / [id number] / [id number] documented as of this encounter Visit Diagnoses Diagnosis Neuroendocrine carcinoma of stomach (HCC)- Primary documented in this encounter Administered Medications Inactive Administered Medications - up to 3 most recent administrations Medication Order MAR Action Action Date Dose Rate Site Lanreotide Acetate (Somatuline Depot) inj 120 mg 120 mg, Subcutaneous, ONCE, On 06/09/24 at 1615, For 1 dose, Deep subcutaneous injection into superior outer quadrant of buttocks.Indications:Neur oendocrine carcinoma of stomach (HCC) Given 06/09/2024 3:14 PM EST 120 mg Dorsogluteal Left documented in this encounter Advance Directives * [...] Advance Directives occurred with: Patient Care Teams Nuclear Waste Process Operator Relationship Specialty Start Date End Date Lia Meadows MD 200 [facility] [place] [address] PCP - General Internal Medicine 04/06/21 documented as of this encounter
--- OUTSIDE RECORDS SUMMARY | 2024-07-18 22:28 | External Medical Summary | Summary of Care ---
Author Name Unknown Organization [facility] Address [address] [place] [address] Phone [phone] Care Team Providers Care Mirror Polisher Name Role Phone Lia Meadows MD Primary Care Provider [phone] Encounter Details Date Type Department Care Team (Late st Contact Info) Description 06/09/2024 Orders Only Hepatology, [facility] [address] [place] [address] Zabrina Ya DO [address] [place] [address] Allergies Active Allergy Reactions Criticality Noted Date [...] than 7.0% ([facility]) Use once daily with insulin 100 Each 5 03/20/20 22 Active Eliquis 5 MG Oral Tablet (Apixaban) TAKE 1 TABLET BY MOUTH IN THE MORNING AND BEFORE BEDTIME 180 Tablet 3 09/10/19 24 Active Furosemide 20 MG Oral Tablet (Lasix)Indications :Cirrhosis of liver with ascites, unspecified hepatic cirrhosis type ([facility]) Take 1 Tablet by mouth in the morning. 180 Tablet 1 10/09/19 24 Active Metoprolol Succinate ER 100 MG Oral Tablet Extended Release 24 Hour (toPROL XL)Indications:Eugenie lothorax, right,Coronary artery disease involving walk[place] coronary artery of [place] heart without angina pectoris,S/P CABG x 3,HFrEF (heart failure with reduced ejection fraction) ([facility]),Ischemic cardiomyopathy,PAF (paroxysmal atrial fibrillation) ([facility]),HTN, goal below 140/90,Dyslipidemi a, goal LDL below 70,Cerebrovascular accident (CVA), unspecified mechanism ([facility]) TAKE 1 TABLET BY MOUTH EVERY DAY IN THE MORNING AND BEFORE BEDTIME 180 Tablet 3 10/15/19 24 Active Additional Information Patient taking differently: 50 mg Oral BID (.AM/PM), Reported on 05/28/2024 Aspirin Low Dose 81 MG Oral Tablet Delayed Release (aspirin enteric coated)Indications :Coronary artery disease involving walk[place] coronary artery of [place] heart without angina pectoris,Ischemic cardiomyopathy,PAF (paroxysmal atrial fibrillation) ([facility]) TAKE 1 TABLET BY MOUTH EVERY DAY IN THE MORNING 90 Tablet 3 10/15/19 24 Active Additional Information Patient taking differently: 81 mg Oral EVERY OTHER DAY, Indications: sunday,wednesdays,fridays, Reported on 05/28/2024 Blood Glucose Monitoring Suppl w/Device KitIndications: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, unspecified whether alf insulin use ([facility]),Type 2 diabetes mellitus with hemoglobin A1c goal of less than 8.0% ([facility]),Diabetic peripheral neuropathy ([facility]),Type 2 diabetes mellitus with stage 3a chronic kidney disease, unspecified whether meterman insulin use ([facility]) Check sugar before meals, at night time [...] 03/28/20 24 Active FreeStyle Frankie 14 Day Marshall DeviceIndications: Type 2 diabetes mellitus with hemoglobin A1c goal of less than 8.0% ([facility]),Uncontrolled type 2 diabetes mellitus with hyperglycemia ([facility]),Current use of insulin ([facility]) Use as directed. 1 Each 04/04/20 24 Active FreeStyle Frankie 3 Sensor Use as directed every 14 days. 2 Each 11 04/07/20 24 Active FreeStyle Frankie 3 Marshall Device Use as directed. 1 Each 1 04/07/20 24 Active Lactulose 10 GM/15ML Oral Solution (Constulose)Indica tions:Neuroendocri ne carcinoma of stomach (HCC) Take 15 mL by mouth in the morning and 15 mL before bedtime. 946 mL 2 05/01/20 24 Active Insulin Glargine Solostar 100 UNIT/ML Subcutaneous Solution Pen-injector (Lantus SoloStar)Indicatio ns:DM type 2, goal HbA1c < 7% ([facility]) INJECT 38 UNITS DAILY BEFORE BEDTIME 45 [...] 06/09/2024 2:00 PM EST Office Visit Hematology/Oncology [facility] Nila [address] [place] [address] Mónica Cantu MD [address] [place] [address] [place] [address] 06/09/2024 2:30 PM EST Immunization/Inje ction Hematology/Oncology Treatment, [place] 200 [facility] [place] [phone] Nila, Chair 3 Hem Onc [address] [place] [address] 07/07/2024 2:30 PM EST Immunization/Inje ction Hematology/Oncology Treatment, [place] [facility] [phone] 07/22/2024 9:40 AM EST Office Visit General Internal Medicine [facility] [place] [address] Lia Meadows MD 200 [facility] [place] [address] 09/08/2024 3:20 PM EST Office Visit [facility]ology, [facility] [address] Zabrina Ya DO 132 [facility] [place] [address] 10/07/2024 1:40 PM EDT Office Visit Nephrology, [facility] 200 [facility] [place] [address] Breezy Meadows MD 200 [facility] [place] [address] 12/02/2024 10:00 AM EDT Office Visit Cardiology, [facility] 132 [facility] [place] [address] Fallon Gifford CRNP [address] [place] [address] [place] [address] Health Maintenance Due Date Last Done Comments [...] Additional history exists CKD HGB USE SMARTSET 39248 05/23/202505/23, 05/23/2024, 04/23/2024, Additional history exists CKD PHOS USE SMARTSET 91275 05/23/202505/09, 04/07/2024, 11/19/2023, Additional history exists TSH [...] this encounter Medical Devices Implanted Type Area Net Developer Consultant Device Identifier Shelf Expiration Date Model / Serial / Lot Suture Steel 6 B&S19 M654g - [id number] Implanted:Qty: 7 on 05/30/2021 by Uvaldo Fleming MD at [place] [facility] N/A: Bridget ZHANG : [employer] 01/05/2026 M654G / / [id number] Lipiodol Injection - [id number] Implanted:Qty: 2 on 09/06/2021 at [facility] [employer] [facility] 10/06/2022 [id number] -2 / [id number] / [id number] Lipiodol Injection - [id number] Implanted:Qty: 1 on 09/06/2021 at [facility] [employer] [facility] 10/06/2022 [id number] -2 / [id number] / [id number] documented as of this encounter Advance Directives [...] Advance Directives occurred with: Patient Care Teams Mirror Polisher Relationship Specialty Start Date End Date Lia Meadows MD 200 [place] [address] PCP - General Internal Medicine 04/06/21 documented as of this encounter
--- OUTSIDE RECORDS SUMMARY | 2024-07-18 22:28 | External Medical Summary | Summary of Care ---
Author Name Unknown Organization [facility] Address [address] [place] [address] Phone [phone] Care Team Providers Care Marketing Operations Analyst Name Role Phone Lia Meadows MD Primary Care Provider [phone] Reason for Visit * Reason Onset Date Comments Test Results 05/26/2024 Encounter Details Date Type Department Care Team (Late st Contact Info) Description 05/26/2024 Telephone NephrologyAbimael 200 [place] [address] Breezy Meadows MD 200 [place] [address] Test Results Allergies Active Allergy Reactions Criticality Noted Date Comments Sulfa Antibiotics Edema Other Medium 02/01/2016 Other reaction(s): unknown Tramadol Nausea/vomiting 04/01/2021 documented as of this encounter (statuses as of 05/30/2024) Medications Vitamin D3 50 MCG (1999) Oral [...] :DM type 2, goal HbA1c < 7% ([facility]) Use as directed 4 times a day . Use up to 3-4 times a day as directed 100 Strip 5 11/22/19 22 Active BD Pen Needle Zora U/F 32G X 4 MM (Insulin Pen Needle)Indication s:Type 2 diabetes mellitus with hemoglobin A1c goal of less than 7.0% ([facility]) Use once daily with insulin 100 Each 5 03/20/20 22 Active Eliquis 5 MG Oral Tablet (Apixaban) TAKE 1 TABLET BY MOUTH IN THE MORNING AND BEFORE BEDTIME 180 Tablet 3 09/10/19 24 Active Furosemide 20 MG Oral Tablet (Lasix)Indication s:Cirrhosis of liver with ascites, unspecified hepatic cirrhosis type ([facility]) Take 1 Tablet by mouth in the morning. 180 Tablet 1 10/09/19 24 Active Metoprolol Succinate ER 100 MG Oral Tablet Extended Release 24 Hour (toPROL XL)Indications:Ch ylothorax, right,Coronary artery disease involving pechanga coronary artery of pechanga heart without angina pectoris,S/P CABG x 3,HFrEF (heart failure with reduced ejection fraction) ([facility]),Ischemic cardiomyopathy,PA F (paroxysmal atrial fibrillation) ([facility]),HTN, goal below 140/90,Dyslipidem ia, goal LDL below 70,Cerebrovascula r accident (CVA), unspecified mechanism ([facility]) TAKE 1 TABLET BY MOUTH EVERY DAY IN THE MORNING AND BEFORE BEDTIME 180 Tablet 3 10/15/19 24 Active Additional Information Patient taking differently: 50 mg Oral BID (.AM/PM), Reported on 05/28/2024 Aspirin Low Dose 81 MG Oral Tablet Delayed Release (aspirin enteric coated)Indication s:Coronary artery disease involving pechanga coronary artery of pechanga heart without angina pectoris,Ischemic cardiomyopathy,PA F (paroxysmal atrial fibrillation) ([facility]) TAKE 1 TABLET BY MOUTH EVERY DAY IN THE MORNING 90 Tablet 3 10/15/19 24 Active Additional Information Patient taking differently: 81 mg Oral EVERY OTHER DAY, Indications: sunday,wednesdays,fridays, Reported on 05/28/2024 Blood Glucose Monitoring Suppl w/Device KitIndications:Ty pe 2 diabetes mellitus with stage 3b chronic kidney disease, unspecified whether longterm insulin use ([facility]),Type 2 diabetes mellitus with hemoglobin A1c goal of less than 8.0% ([facility]),Diabetic peripheral neuropathy ([facility]),Type 2 diabetes mellitus with stage 3a chronic kidney disease, unspecified whether longterm insulin use (HCC) Check sugar before meals, [...] 03/28/20 24 Active FreeStyle Frankie 14 Day Eldred DeviceIndications :Type 2 diabetes mellitus with hemoglobin A1c goal of less than 8.0% ([facility]),Uncontrolle d type 2 diabetes mellitus with hyperglycemia ([facility]),Current use of insulin ([facility]) Use as directed. 1 Each 04/04/20 24 Active FreeStyle Frankie 3 Sensor Use as directed every 14 days. 2 Each 11 04/07/20 24 Active FreeStyle Frankie 3 Eldred Device Use as directed. 1 Each 1 04/07/20 24 Active Lactulose 10 GM/15ML Oral Solution (Constulose)Indic ations:Neuroendoc rine carcinoma of stomach (HCC) Take 15 mL by mouth in the morning and 15 mL before bedtime. 946 mL 2 05/01/20 24 Active Insulin Glargine Solostar 100 UNIT/ML Subcutaneous Solution Pen-injector (Lantus SoloStar)Indicati ons:DM type 2, goal HbA1c < 7% ([facility]) INJECT 38 UNITS DAILY BEFORE [...] stage 3a chronic kidney disease, unspecified whether longterm insulin use (HCC) INJECT 1 SYRINGE SUBCUTANEOUSLY ONCE A WEEK 6 mL 3 01/22/20 24 024 Disconti nued(Pat ient preferen ce/disco ntinuati on) Vancomycin HCl 250 MG Oral Capsule (Vancocin)Indicat ions:Neuroendocri ne carcinoma of stomach (HCC) Take 1 Capsule by mouth every 6 hours. 120 Capsule 05/01/20 24 024 Disconti nued(Pat ient preferen ce/disco ntinuati on) documented as of this encounter (statuses as of 05/30/2024) Active Problems Problem Noted Date Diagnosed Date [...] as of this encounter (statuses as of 05/30/2024) Resolved Problems Problem Noted Date Diagnosed Date [...] as of this encounter (statuses as of 05/30/2024) Immunizations Name Administration Dates Next Due COVID-19 [...] encounter Miscellaneous Notes * Telephone Encounter - Kelsea Warner LPN - 05/30/2024 12:20 PM EST Reviewed Note with Dr Meadows Per consult Pt has been referred to Palliative Care no further instructions or med changes needed at this time * Telephone Encounter - Kelsea Warner LPN - 05/26/2024 12:[address] Meadows will await consult * Telephone Encounter - Kelsea Warner LPN - 05/26/2024 12:42 PM EST ----- Message from Breezy Meadows MD sent at 05/26/2024 11:12 AM EST ----- Kidney function continues to get worse. At this point mainly driven by worsening Liver status. Also new Cancer Dx now. Lower Aldactone to 25 daily and lower lasix to 40 daily from current 80 daily. First confirm. He will need to be on a weekly or q2 week schedule for Abd Paracentesis. Will discuss this with PCP as well as hepatology. documented in this encounter Plan of Treatment Upcoming Encounters Date Type Department Care Team (Late st Contact Info) Description 06/09/2024 2:00 PM EST Office Visit Hematology/Oncology [facility] [place] 200 [facility] [place] [address] Mónica Cantu MD [address] [place] [address] [place] [phone] 06/09/2024 2:30 PM EST Immunization/Inje ction Hematology/Oncology Treatment, [address] [place] [phone] Nila, Chair [address] Hem [address] [place], [place] [address] 06/11/2024 9:00 AM EST Office Visit Palliative Medicine [address] [place] [phone] Dorinda Lyn MD [address] [facility] [place] [place] [phone] 07/22/2024 9:40 AM EST Office Visit General Internal Medicine [address] [place], [place] [address] Lia Meadows MD 200 [facility] [place], [place] [address] 09/08/2024 3:20 PM EST Office Visit Hepatology, [facility] 132 [place] [address] Zabrina Ya DO 132 [facility] [place] [address] 10/07/2024 1:40 PM EDT Office Visit Nephrology, [address] [place], [place] [address] Breezy Meadows MD 200 [facility] [place], [place] [address] 12/02/2024 10:00 AM EDT Office Visit Cardiology, [facility] 132 [place] [address] Fallon Gifford CRNP [address] [place] [address] Health Maintenance Due Date Last Done Comments [...] Additional history exists CKD HGB USE SMARTSET 85760 05/23/202505/23, 05/23/2024, 04/23/2024, Additional history exists CKD PHOS USE SMARTSET 94709 05/23/202505/09, 04/07/2024, 11/19/2023, Additional history exists TSH [...] this encounter Medical Devices Implanted Type Area Consulting Actuary Device Identifier Shelf Expiration Date Model / Serial / Lot Suture Steel 6 B&S19 M654g - [id number] Implanted:Qty: 7 on 05/30/2021 by Uvaldo Fleming MD at [facility] N/A: Sternum JNJ : [employer] 01/05/2026 M654G / / RHBBPM Lipiodol Injection - [id number] Implanted:Qty: 2 on 09/06/2021 at [facility] Apprion 10/06/2022 [id number] -2 / [id number] / [id number] Lipiodol Injection - [id number] Implanted:Qty: 1 on 09/06/2021 at [facility] Apprion 10/06/2022 [id number] -2 / [id number] / [id number] documented as of this encounter Advance Directives [...] Advance Directives occurred with: Patient Care Teams Marketing Operations Analyst Relationship Specialty Start Date End Date Lia Meadows MD 200 [place] [address] PCP - General Internal Medicine 04/06/21 documented as of this encounter
--- OUTSIDE RECORDS SUMMARY | 2024-07-18 22:28 | External Medical Summary | Summary of Care ---
Author Name Unknown Organization [facility] Address [address] [place] [address] Phone [phone] Care Team Providers Care Lumber Buyer Name Role Phone Lia Meadows MD Primary Care Provider [phone] Reason for Referral * Evaluate & Treat - Unlimited Visits (Within 3 days (urgent)) - Authorized Specialty Diagnoses / Procedures Referred By Contact Referred To Contact Cardiovascular Medicine / Cardiology Diagnoses Hx of CABG Zabrina Ya DO [address] [place] [address] Phone: tel: fax: Referral ID Status Reason Start Date Expiration Date Visits Requested Visits Authorized [id number] Authorized Specialty Services Required [phone] Question Answer Referral Priority Within 3 days (urgent) Where should this appointment be scheduled? [facility] To which of the following clinics are you referring your patient? General Cardiology Clinic Comments Patient with decompensated cirrhosis, on eliquis wondering if he still needs this given increased risk of bleeding has had variceal bleeds and PHG bleeding now has gastric cancer. Also is on metoprolol and ideally would switch to NSBB propanolol and coreg * Evaluate & Treat - Unlimited Visits (Within 3 days (urgent)) - Authorized Specialty Diagnoses / Procedures Referred By Contac t Referred To Contact Hospice and Palliative Medicine / Palliative Medicine Diagnoses Insomnia, unspecified type Malignant neoplasm of stomach, unspecified location (HCC) Zabrina Ya DO [address] [place] [address] Phone: tel: fax: Referral ID Status Reason Start Date Expiration Date Visits Requested Visits Authorized [id number] Authorized Specialty Services Required [phone] Question Answer Referral Priority Within 3 days (urgent) Where should this appointment be scheduled? [facility] Reason for Referral: Cancer Palliative Medicine To Address: Pain & Symptom Management Referral Location Office Comments Pain management, goal of care Reason for Visit * Reason Comments Follow Up Cirrhosis Encounter Details Date Type Department Care Team (Late st Contact Info) Description 05/23/2024 8:40 AM EST Office Visit Hepatology, [facility] [address] [place] [address] Zabrina Ya DO [address] [place] [address] Insomnia, unspecified type*; Malignant neoplasm of stomach, unspecified location (HCC); Hx of CABG; Alcoholic cirrhosis of liver with ascites (HCC) [...] type 2, goal HbA1c < 7% ([facility]) Use as directed 4 times a day . Use up to 3-4 times a day as directed 100 Strip 5 11/22/19 22 Active BD Pen Needle Zora U/F 32G X 4 MM (Insulin Pen Needle)Indications :Type 2 diabetes mellitus with hemoglobin A1c goal of less than 7.0% ([facility]) Use once daily with insulin [...] with ascites, unspecified hepatic cirrhosis type ([facility]) Take 1 Tablet by mouth in the morning. 180 Tablet 1 10/09/19 24 Active Metoprolol Succinate ER 100 MG Oral Tablet Extended Release 24 Hour (toPROL XL)Indications:Eugenie lothorax, right,Coronary artery disease involving buckland coronary artery of buckland heart without angina pectoris,S/P CABG x 3,HFrEF (heart failure with reduced ejection fraction) ([facility]),Ischemic cardiomyopathy,PAF (paroxysmal atrial fibrillation) ([facility]),HTN, goal below 140/90,Dyslipidemi a, goal LDL below 70,Cerebrovascular accident (CVA), unspecified mechanism ([facility]) TAKE 1 TABLET BY MOUTH EVERY DAY IN THE MORNING AND BEFORE BEDTIME 180 Tablet 3 10/15/19 24 Active Additional Information Patient taking differently: 50 mg Oral BID (.AM/PM), Reported on 05/23/2024 Aspirin Low Dose 81 MG Oral Tablet Delayed Release (aspirin enteric coated)Indications :Coronary artery disease involving buckland coronary artery of buckland heart without angina pectoris,Ischemic cardiomyopathy,PAF (paroxysmal atrial fibrillation) ([facility]) TAKE 1 TABLET BY MOUTH EVERY DAY IN THE MORNING 90 Tablet 3 10/15/19 24 Active Additional Information Patient taking differently: 81 mg Oral EVERY OTHER DAY, Indications: sunday,wednesdays,fridays, Reported on 10/16/2023 Blood Glucose Monitoring Suppl w/Device KitIndications: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, unspecified whether skilled nursing insulin use ([facility]),Type 2 diabetes mellitus with hemoglobin A1c goal of less than 8.0% (HCC),Diabetic peripheral neuropathy (HCC),Type 2 diabetes mellitus with stage 3a chronic kidney disease, unspecified whether skilled nursing insulin use ([facility]) Check sugar before meals, at [...] A1c goal of less than 8.0% ([facility]),Type 2 diabetes mellitus with stage 3a chronic kidney disease, unspecified whether ad terminal makeup operator insulin use ([facility]) INJECT 1 SYRINGE SUBCUTANEOUSLY ONCE A WEEK 6 mL 3 01/22/20 24 Active Additional Information Patient not taking.Reported on 05/23/2024 Atorvastatin Calcium 40 MG Oral Tablet (Lipitor)Indicatio ns:Hyperlipidemia LDL goal <100 TAKE 1 TABLET BY MOUTH EVERY DAY 90 Tablet 1 03/28/20 24 Active FreeStyle Frankie 14 Day [place] DeviceIndications: Type 2 diabetes mellitus with hemoglobin A1c goal of less than 8.0% ([facility]),Uncontrolled type 2 diabetes mellitus with hyperglycemia (HCC),Current use of insulin ([facility]) Use as directed. 1 Each 04/04/20 24 Active FreeStyle Frankie 3 Sensor Use as directed every 14 days. 2 Each 11 04/07/20 24 Active FreeStyle Frankie 3 [place] Device Use as directed. 1 Each 1 [...] money to buy more. Never true 12/01/19 Within the past 12 months, t he [...] Sign Reading Time Taken Comments Blood Pressure 111/53 05/23/2024 8:46 AM EST Pulse 78 05/23/2024 8:46 AM EST Temperature 36.4 C (97.5 F) 05/23/2024 8:46 AM ES T Respiratory Rate 18 05/23/2024 8:46 AM EST Oxygen Saturation 99% 05/23/2024 8:46 AM EST Inhaled Oxygen Concentration - - Weight 72.1 kg (159 lb) 05/23/2024 8:46 AM EST Height - - Body Mass Index [...] German Magana RN documented in this encounter Progress Notes * Zabrina Ya, - 05/23/2024 8:49 AM EST Images from the original note were not included. Hepatology Clinic Note Date of appointment: 05/23/2024 History of Present Illness: Norris Francois is [...] in september 2021 after he presented to [facility] and found to have ascites. Patient states [...] doxycycline. He completed the course of abx. Since last visit in November a lot has occurred. Had EGD 03/2024 at [facility] for melena found to have 2 smallmucosal nodules in the proximal gastric body that were biopsied. No large varices seen only post variceal banding. Surgical pathology (03/24/2024) of the proximal body of the stomach mucosal nodules biopsy: Gastric neuroendocrine tumor, grade 2. He was also found to have C. Diff and treated with Vancomycin. He is now following with hematology and oncology / [facility]. Started on Lanreotide every 28 days for palliative treatment. Saw nephrology last week. Has stage 3 CKD but also ascites and LE swelling. He is on lasix 20 mg daily and aldactone 50 gm daily. His overall health is declining fast. Decompensations: Varices: yes Ascites: yes SBP: no HRS: no HE: no HCC: no Screening: EGD: 09/2023- large EV banded. 10/2023- small EV and scarring from prior treatment 03/2024- small varices but found to have 2 small mucosal nodules with path showing gastric neuroendocrine tumor Colonoscopy: over 10 years ago Liver imagin11/2023- no liver lesions Review of systems: Positives in HPI. Negative for: Denies headache, lightheadedness, chest pain, cough, SOB, fever, chills, nausea, vomiting, heart burn, bloating, decreased appetite, early satiety, abdominal pain, diarrhea, fecal incontinence, constipation, rectal bleeding, weight loss, dysuria, frequency, incontinence, joint pain, back pain, weakness, fatigue, anxiety, depressed mood, difficulty sleeping. The remaining ROS reviewed and are negative. Past Medical History: Diagnosis Date Diabetic peripheral neuropathy (HCC) 03/01/2023 DM type 2, goal HbA1c < 7% (HCC) 1994 HTN, goal below 140/90 Hyperlipidemia LDL goal <100 Hypothyroid Rotator cuff tear Past Surgical History: Procedure Laterality Date CABG, ARTERIAL, SINGLE N/A 05/30/2021 CORONARY ARTERY BYPASS GRAFT USING ARTERY 1 GRAFT performed by Uvaldo Fleming MD at [facility] CABG, ARTERY-VEIN, TWO 05/30/2021 CORONARY ARTERY BYPASS GRAFT ARTERIAL AND VENOUS 2 GRAFTS performed by Uvaldo Fleming MD at OR [facility] CORONARY ANGIOGRAPHY W/LEFT HEART CATH Right 05/27/2021 CORONARY ANGIOGRAPHY W/LEFT HEART CATH performed by Jaime Munoz MD at [facility] LAB[facility] EGD, FLEXIBLE, DIAGNOSTIC 06/27/2022 normal scope, 3-4 columns grade I varices , z-line found 40cm from incisors [place] Class II / no specimens collected / ESOPHAGOGASTRODUODENOSCOPY (EGD), FLEXIBLE, TRANSORAL, DIAGNOSTIC performed by Evy Hylton MD at ENDOSCOPY [facility] EGD, FLEXIBLE, DIAGNOSTIC 07/16/2023 grade II esophageal varices/ESOPHAGOGASTRODUODENOSCOPY (EGD), FLEXIBLE, TRANSORAL, DIAGNOSTIC performed by Evy Hylton MD at ENDOSCOPY [facility] EGD, FLEXIBLE, DIAGNOSTIC N/A 10/23/2023 small esophageal varices, scarring from prior banding/portal hypertensive gastropathy/repeat 6 months/ESOPHAGOGASTRODUODENOSCOPY (EGD), FLEXIBLE, TRANSORAL, DIAGNOSTIC performed by Zabrina Ya DO at ENDOSCOPY [facility] EGD, FLEXIBLE, DIAGNOSTIC N/A 09/13/2023 large esophageal varices, banded/portal hypertensive gastropathy/medium amount of food stomach/repeat 6-8 weeks/EGD/[place] ENDO,VIDEO ASSIST HARVEST BRITTANY 05/30/2021 ENDOSCOPY VIDEO ASSISTED HARVEST VEIN performed by Uvaldo Fleming MD at OR [facility] INCISION OF HEART SAC FOR DRAINAGE N/A 11/10/2021 CREATION PERICARDIAL WINDOW performed by Uvaldo Fleming MD at OR [facility] IR ARTERIAL EMBOLIZATION 09/06/2021 IR CHEST TUBE 09/08/2021 THORACOSCOPY, DIAGNOSTIC, LUNGS N/A 08/01/2021 THORACOSCOPY DIAGNOSTIC WITHOUT BIOPSY performed by Uvaldo Fleming MD at OR [facility] No family history on file. Current Outpatient Medications Medication Sig Dispense Refill Vitamin D3 50 MCG (2000 UT) Oral Tablet Take 1 Tablet by mouth in the morning. Vitamin C 500 MG Oral Tablet (Ascorbic Acid) Take 1 Tablet by mouth in the morning. Ondansetron HCl 4 MG Oral Tablet Take by mouth 1 Tablet every 8 hours as needed for Nausea. 30 Tablet 0 Eliquis 5 MG Oral Tablet (Apixaban) TAKE [...] 0.5 Tablets before bedtime.) 180 Tablet 3 Levothyroxine Sodium 88 MCG Oral Tablet (Levoxyl) TAKE 1 TABLET BY MOUTH IN THE MORNING AT LEAST 30MINUTES PRIOR TO BREAKFAST AND OTHER MEDS 90 Tablet 1 Atorvastatin Calcium 40 MG Oral Tablet (Lipitor) TAKE 1 TABLET BY MOUTH EVERY DAY 90 Tablet 1 Lactulose 10 GM/15ML Oral Solution (Constulose) Take 15 mL by mouth in the morning and 15 mL beforebedtime. 946 mL 2 Insulin Glargine Solostar 100 UNIT/ML Subcutaneous Solution Pen-injector (Lantus SoloStar) INJECT 38 UNITS DAILY BEFORE BEDTIME 45 mL 3 Spironolactone 50 MG Oral Tablet (Aldactone) Take 1 Tablet by mouth daily. 90 Tablet 1 Nitroglycerin 0.4 MG Sublingual Tablet Sublingual (Nitrostat) Place 1 Tablet under the tongue every5 minutes as needed for Pain, Chest. (Patient not taking: Reported on 11/19/2023) AMS-QiTouch Ultra Blue In Vitro Strip (Glucose Blood) Use as directed 4 times a day . Use up to 3-4 times a day as directed 100 Strip 5 BD Pen Needle Zora U/F 32G X 4 MM (Insulin Pen Needle) Use once daily with insulin 100 Each 5 Finasteride 5 MG Oral Tablet (Proscar) Take 1 Tablet by mouth in the morning. (Patient not taking: Reported on 05/23/2024) Aspirin Low Dose 81 MG Oral Tablet Delayed Release (aspirin enteric coated) TAKE 1 TABLET BY MOUTH EVERY DAY IN THE MORNING (Patient taking differently: Take 1 Tablet by mouth every other day.) 90 Tablet 3 Blood Glucose Monitoring Suppl w/Device Kit Check sugar before meals, at night time and as needed for motoring sugar . Dx -E.11.9 and E11.65 1 Kit 0 Trulicity 1.5 MG/0.5ML Subcutaneous Solution Pen-injector (Dulaglutide) INJECT 1 SYRINGE SUBCUTANEOUSLY ONCE A WEEK (Patient not taking: Reported on 05/23/2024) 6 mL 3 FreeStyle Frankie 14 Day [place] Device Use as directed. 1 Each 0 FreeStyle Frankie 3 Sensor Use as directed every 14 days. 2 Each 11 FreeStyle Frankie 3 [place] Device Use as directed. 1 Each 1 Vancomycin HCl 250 MG Oral Capsule (Vancocin) Take 1 Capsule by mouth every 6 hours. (Patient not taking: Reported on 05/23/2024) 120 Capsule 0 No current facility-administered medications for this visit. Review of patient's allergies indicates: Allergen Reactions Sulfa Antibiotics Edema Other Other reaction(s): unknown Tramadol Nausea/vomiting Physical Exam: vitals: BP 111/53 | Pulse 78 | Temp 36.4 C (97.5 F) | Resp 18 | Wt 72.1 kg (159 lb) | SpO2 99% | BMI 22.81 kg/m | BSA 1.89 m GENERAL: Thin male in no acute [...] on exam. Recent Labs: Reviewed MELD 3.0: 21 at 04/10/2024 12:35 PM Calculated from: Serum Creatinine: 2 mg/dL at 04/10/2024 12:35 PM Serum Sodium: 140 mmol/L (Using max of 137 mmol/L) at 04/10/2024 12:35 PM Total Bilirubin: 0.9 mg/dL (Using min of 1 mg/dL) at 04/10/2024 12:35 PM Serum Albumin: 3.9 g/dL (Using max of 3.5 g/dL) at 04/10/2024 12:35 PM INR(ratio): 2.2 at 04/10/2024 12:35 PM Age at listing (hypothetical): 78 years Sex: Male at 04/10/2024 12:35 PM Recent Imaging Studies: Reviewed PET scan 04/23/2024: IMPRESSION 1. No evidence of DOTATATE avid malignancy. 2. Cirrhotic appearance of the liver with moderate ascites. Abdominal US 11/22/2023: IMPRESSION 1. Hepatic cirrhosis. No discrete hepatic lesion. 2. Splenomegaly. 3. Mild ascites. 4. Cholecystectomy. Abdominal US 06/2023: IMPRESSION No cirrhosis. Abdominal [...] of neck. Recent Endoscopic Procedures: Reviewed EGD 03/2024 [facility]: Surgical pathology (03/24/2024) of the proximal body of the stomach mucosal nodules biopsy: Gastricneuroendocrine tumor, grade 2. H&E stains reveal remarkably monomorphic population of cells with round regular nuclei and evenly distributed chromatin. Enlarged nucleoli were not seen. The cells were arranged and medium-size sheets and gland formation is not seen. The gastric mucosa adjacent tothis tumor and in fragments not involved by tumor reveals moderate, chronic, active gastritis with focal intestinal metaplasia and no evidence of atrophy was seen. An Alcian blue histochemical staining confirms a focal presents of intestinal metaplasia. An immunohistochemical stain for the Helicobacter pylori organism is negative. Multiple immunohistochemical stains were obtained to evaluate the tumor. The cells of the neuroendocrine tumor diffusely and strongly positive for synaptophysin, chromogranin and CD56 that also positive for cytokeratin marker. The immunohistochemical stain for Ki-67 highlights 15% cells of the neuroendocrine tumor and therefore the tumor is grade 2. The neoplasm infiltrates the mucosa but does not infiltrate the submucosa and there is focally erosion of the mucosa overlying one of these nodules . EGD 10/23/2023: Impression: - Z-line regular, 38 [...] Assessment and plan: Norris Francois is a 78 year old [...] cirrhosis in september after he presented to [facility] and found to have ascites. -Liver disease severity. Pt.'s last MELD was 121. We will get MELD labs today. His cirrhosis is likely due to alcohol given history of alcohol abuse though he certainly has risk factors for HUSSEIN as well. He has been sober for the past 25 years. -Variceal screening: EGD in 07/2023 with large EV. EGD 09/2023 with large EV banded x3. Repeat EGD 10/2023 with small EV. Repeat 03/2024 with neuroendocrine tumor found but small varices. From variceal standpoint would not need another EGD until 03/2025 but pending overall health status. -Fluid status: based on today's physical exam, the pt. Has no pedal edema and moderate ascites appreciated but he is not tense and abdomen is still very soft. Last paracentesis 1 week ago with 5 L removed. He is on lasix 20 mg daily and aldactone 50 mg daily. I also recommend 2 gram sodium diet. Hehas a standing order at [facility]. Unable to increase diuretics further due to kidney function. -Hepatic encephalopathy: based on today's examination, the pt. does not have asterixis. He is on lactulose titrate for 3-4 soft bowel movements daily. -Renal function: pt.'s most recent SCr was 2. He is following with nephrology. -HCC screening. Pt.'s last liver imaging study was done 11/2023. Pt will need HCC screening every 6 months with imaging in conjunction with an AFP. -Avoid liver toxins including over the counter [...] times daily. GI nutrition referral placed previously. -Neuroendocrine tumor of stomach: Had EGD 03/2024 at [facility] for melena found to have 2 small mucosal nodules in the proximal gastric body that were biopsied. No large varices seen only post variceal banding. Surgical pathology (03/24/2024) of the proximal body of the stomach mucosal nodules biopsy: Gastric neuroendocrine tumor, grade 2. He is now following with hematology and oncology / [facility]. Started on Lanreotide every 28 days for palliative treatment. -very long discussion with son (Oscar leonardo) and patient today. We discussed overall decline in health the past 6 months, now with new neuroendocrine cancer, worsening ascites requiring weekly paracentesis. Overall prognosis is very poor. Not a liver transplant candidate. Discussed as MELD continues toworsen we need to discuss goals of care and what his wishes would be. They are agreeable to palliative care referral to discuss goals/hospice if needed. I am updating paracentesis orders at [facility] for up to 10L with albumin to be given. We discussed if he decides upon hospice we can plan on a palliative drain placement to drain the ascites. Unfortunately we are limited by increasing the diuretics any further as his kidney function is poor with most recent Cr of 2. They asked if he needs to be on Eliquis given his frequent GI bleeding from varices/PHG. I have placed a cardiology referral to see if he can be taken off this but he does have history of TIA etc. In addition it would benefit him addy switched from Metoprolol to NSBB such as carvedilol or propanolol. In addition he is dealing with a lot of insomnia and pain and inability to sleep. I have prescribed trazodone 50 mg at bedtime. Discussed with son that this may worsen HE but his inability to sleep is affecting his quality of life so we will start this and see if it helps and his will monitor him on this medication. -Follow up in 8 weeks Zabrina Ya DO Gastroenterology and Hepatology I spent a total of 50 minutes on the date of service in review of patient's record, and previously obtained information in person and appropriate medical visit, discussion and education of plan, withpatient and/or caregiver, placing orders for tests/referral/procedures as medically necessary and documentation of pertinent clinical information in patient's medical records for their visit today. documented in this encounter Nursing Notes * Maria Ines Montes LPN - 05/23/2024 9:44 AM EST US Guided Paracentesis Order yes Diagnostic ONLY? No Fluid removal amount addressed? Yes increase to 10ml Albumin orders printed/rate addressed?yes Coags ordered?no (Please check that they were not drawn at [facility]) Is patient on blood thinners?yes If yes- nursing please address prior to forwarding to scheduling Is patient Diabetic?yes If yes, please remind patient they will be NPO 4 hours prior to paracentesis and may need to consult with who manages their diabetic medications Patient scheduling preferences: [facility] * Lashae Srinivasan, RN - 05/23/2024 8:49 AM EST Follow up visit today. Son present for visit today. Last paracentesis was done on Sunday at [facility]. Son states that he had 5L removed. documented in this encounter Miscellaneous Notes * Addendum Note - Jazmyn Alfonso MD - 05/26/2024 11:20 AM ESTAddended by: JAZMYN ALFONSO on: 05/26/2024 11:20 AM Modules accepted: Orders * Addendum Note - Maria Ines Montes LPN - 05/23/2024 12:47 PM ESTAddended by: MARIA INES MONTES on: 05/23/2024 12:47 PM Modules accepted: Orders documented in this encounter Plan of Treatment Upcoming Encounters Date Type Department Care Team (Late st Contact Info) Description 05/28/2024 2:00 PM EST Office Visit Cardiology, [facility] [address] [facility] [place] [address] Fallon Gifford CRNP [address] [place] [address] 06/09/2024 2:00 PM EST Office Visit Hematology/Oncology [facility] [address] [place] [phone] Mónica Cantu MD [address] [place] [phone] 06/09/2024 2:30 PM EST Immunization/Inje ction Hematology/Oncology Treatment, [address] [place] [phone] Nila, Chair 3 Hem Onc [address] [place] [address] 06/11/2024 9:00 AM EST Office Visit Palliative Medicine [address] [place] [phone] Dorinda Lyn MD [address] [place], [place] [id number] 07/22/2024 9:40 AM EST Office Visit General Internal Medicine [address] [place] [address] Lia Meadows MD [address] [place] [address], [place] [address] 09/08/2024 3:20 PM EST Office Visit Hepatology, [facility] [address] [facility] [place] [address] Zabrina Ya DO [address] [place] [address] 10/07/2024 1:40 PM EDT Office Visit Nephrology, [address] [place] [address] Breezy Meadows MD [address] [place] [address] [place] [address] Scheduled Orders Name Type Priority Associated Diagnoses Order Schedule US ABDOMINAL PARACENTESIS Medical Imaging Routine Alcoholic cirrhosis of liver with ascites (HCC) 2 Occurrences starting 05/26/2024 until 06/22/2025 Scheduled Referrals Name Type Priority Associated Diagnoses Orde r Schedule PALLIATIVE CARE REFERRAL OP Referral Within 3 days (urgent) Insomnia, unspecified type Malignant neoplasm of stomach, unspecified location (HCC) Ordered: 05/23/2024 CARDIOLOGY REFERRAL OP Referral Within 3 days [...] Additional history exists CKD HGB USE SMARTSET 68262 05/23/202505/23, 05/23/2024, 04/23/2024, Additional history exists CKD PHOS USE SMARTSET 95731 05/23/202505/09, 04/07/2024, 11/19/2023, Additional history exists TSH [...] this encounter Medical Devices Implanted Type Area Coil Inspector Device Identifier Shelf Expiration Date Model / Serial / Lot Suture Steel 6 B&S19 M654g - [id number] Implanted:Qty: 7 on 05/30/2021 by Uvaldo Fleming MD at [facility] N/A: Sternum JNJ : [employer] 01/05/2026 M654G / / [id number] Lipiodol Injection - [id number] Implanted:Qty: 2 on 09/06/2021 at [facility] [employer] 10/06/2022 [id number] -2 / [id number] / [id number] Lipiodol Injection - [id number] Implanted:Qty: 1 on 09/06/2021 at [facility]/06/2022 [id number] -2 / [id number] / [id number] documented as of this encounter Results * ALPHA-FETOPROTEIN TUMOR MARKER (05/23/2024 10:00 AM EST) Alpha-Fetoprot ein Tumor Marker 1.8 0.0 - 8.3 ng/mL 05/23/2024 9:32 PM EST LABORATORY [facility] Blood Venous blood specimen / Unknown Venipuncture / Unknown 05/23/2024 10:00 AM EST 05/23/2024 10:00 AM EST us Zabrina Ya DO LAB BLOOD ORDERABLES F inal Result LABORATORY [facility] [address] [place] [address] documented in this encounter Visit Diagnoses Diagnosis Insomnia, unspecified type- Primary Malignant neoplasm of stomach, unspecified location (HCC) Hx of CABG Postsurgical aortocoronary bypass status Alcoholic cirrhosis of liver with ascites (HCC) [...] Advance Directives occurred with: Patient Care Teams Lumber Buyer Relationship Specialty Start Date End Date Lia Meadows MD [address] [place] [address] PCP - General Internal Medicine 04/06/21 documented as of this encounter"
--- OUTSIDE RECORDS SUMMARY | 2024-07-18 22:28 | External Medical Summary | Summary of Care ---
Author Name Unknown Organization [facility] Address [address] [place] [address] Phone [phone] Care Team Providers Care Video Clerk Name Role Phone Lia Kilgore MD Primary Care Provider [phone] Reason for Visit * Reason Onset Date Comments Med Request 05/28/2024 Encounter Details Date Type Department Care Team (Late st Contact Info) Description 05/28/2024 Refill General Internal Medicine [facility] [place] [address] [facility] [place] [address] Lia Kilgore MD 200 [place] [address] Nausea Allergies Active Allergy Reactions Criticality Noted Date [...] 2, goal HbA1c < 7% ([facility]) Use as directed 4 times a day . Use up to 3-4 times a day as directed 100 Strip 5 11/22/19 22 Active BD Pen Needle Zora U/F 32G X 4 MM (Insulin Pen Needle)Indications :Type 2 diabetes mellitus with hemoglobin A1c goal of less than 7.0% ([facility]) Use once daily with insulin 100 Each 5 03/20/20 22 Active Eliquis 5 MG Oral Tablet (Apixaban) TAKE 1 TABLET BY MOUTH IN THE MORNING AND BEFORE BEDTIME 180 Tablet 3 09/10/19 24 Active Furosemide 20 MG Oral Tablet (Lasix)Indications :Cirrhosis of liver with ascites, unspecified hepatic cirrhosis type ([facility]) Take 1 Tablet by mouth in the morning. 180 Tablet 1 10/09/19 24 Active Metoprolol Succinate ER 100 MG Oral Tablet Extended Release 24 Hour (toPROL XL)Indications:Eugenie lothorax, right,Coronary artery disease involving [place] coronary artery of [place] heart without angina pectoris,S/P CABG x 3,HFrEF (heart failure with reduced ejection fraction) ([facility]),Ischemic cardiomyopathy,PAF (paroxysmal atrial fibrillation) ([facility]),HTN, goal below 140/90,Dyslipidemi a, goal LDL below 70,Cerebrovascular accident (CVA), unspecified mechanism ([facility]) TAKE 1 TABLET BY MOUTH EVERY DAY IN THE MORNING AND BEFORE BEDTIME 180 Tablet 3 10/15/19 24 Active Additional Information Patient taking differently: 50 mg Oral BID (.AM/PM), Reported on 05/28/2024 Aspirin Low Dose 81 MG Oral Tablet Delayed Release (aspirin enteric coated)Indications :Coronary artery disease involving [place] coronary artery of [place] heart without angina pectoris,Ischemic cardiomyopathy,PAF (paroxysmal atrial fibrillation) ([facility]) TAKE 1 TABLET BY MOUTH EVERY DAY IN THE MORNING 90 Tablet 3 10/15/19 24 Active Additional Information Patient taking differently: 81 mg Oral EVERY OTHER DAY, Indications: sunday,wednesdays,fridays, Reported on 05/28/2024 Blood Glucose Monitoring Suppl w/Device KitIndications: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, unspecified whether terminologist insulin use ([facility]),Type 2 diabetes mellitus with hemoglobin A1c goal of less than 8.0% ([facility]),Diabetic peripheral neuropathy ([facility]),Type 2 diabetes mellitus with stage 3a chronic kidney disease, unspecified whether retirement insulin use ([facility]) Check sugar before meals, at night time [...] 03/28/20 24 Active FreeStyle Frankie 14 Day [place] DeviceIndications: Type 2 diabetes mellitus with hemoglobin A1c goal of less than 8.0% ([facility]),Uncontrolled type 2 diabetes mellitus with hyperglycemia ([facility]),Current use of insulin ([facility]) Use as directed. 1 Each 04/04/20 24 Active FreeStyle Frankie 3 Sensor Use as directed every 14 days. 2 Each 04/07/20 24 Active FreeStyle Frankie 3 [place] Device Use as directed. 1 Each 1 04/07/20 24 Active Lactulose 10 GM/15ML Oral Solution (Constulose)Indica tions:Neuroendocri ne carcinoma of stomach (HCC) Take 15 mL by mouth in the morning and 15 mL before bedtime. 946 mL 2 05/01/20 24 Active Insulin Glargine Solostar 100 UNIT/ML Subcutaneous Solution Pen-injector (Lantus SoloStar)Indicatio ns:DM type 2, goal HbA1c < 7% ([facility]) INJECT 38 UNITS DAILY BEFORE BEDTIME 45 mL 3 05/04/20 24 Active Spironolactone 50 MG Oral Tablet (Aldactone)Indicat ions:after breakfast Take 1 Tablet by mouth daily. 90 Tablet 1 05/16/20 24 Active traZODone HCl 50 MG Oral Tablet (Desyrel)Indicatio ns:Insomnia, unspecified type,Malignant neoplasm of stomach, unspecified location ([facility]) Take 1 Tablet by mouth at bedtime. 90 Tablet 1 05/23/20 24 Active Ondansetron HCl 4 MG Oral TabletIndications: Nausea Take 1 Tablet by mouth every 8 hours as needed for Nausea. 30 Tablet 5 05/29/20 24 Active Ondansetron HCl 4 MG Oral TabletIndications: Nausea Take by mouth 1 Tablet every 8 hours as needed for Nausea. 30 Tablet 11/22/19 22 024 Discontin ued(Refil l) documented as [...] of Assessment Author Yes 11/10/2021 3:04 AM YULISSAT German Xiao RN * Do you have [...] Entry Date Author No 11/10/2021 3:04 AM EDGerman Browning RN documented in this encounter Miscellaneous Notes * Telephone Encounter - Lia Kilgore MD - 05/29/2024 9:04 AM ESTSigned Prescriptions: Disp Refills Ondansetron HCl 4 MG Oral Tablet 30 Tab*5 Sig: Take 1 Tablet by mouth every 8 hours as needed for Nausea. Authorizing Provider: LIA KILGROE * Telephone Encounter - Kaushik Eli LPN - 05/28/2024 2:31 PM EST Did you pend patient's preferred pharmacy and medication before forwarding?yes Pharmacy: [id number] [address] [place] [address] Pending Prescriptions: Disp Refills Ondansetron HCl 4 MG Oral Tablet 30 Tab*5 Sig: Take 1 Tablet by mouth every 8 hours as needed for Nausea. Last Visit: 04/21/2024 (in office), Visit date not found (telemedicine) Next Visit: 07/22/2024 If no future appointments scheduled, and last appointment is greater than a year ago, please schedule patient for a follow-up appointment Last date the medication was ordered: 11/21/21- Patient has had script from rehab facility since butneeds a refill Is this request for a controlled substance?No [...] 06/09/2024 2:00 PM EST Office Visit Hematology/Oncology [address] [place] [phone] Mónica Cantu MD [address] [facility] [place] [address] 06/09/2024 2:30 PM EST Immunization/Inje ction Hematology/Oncology Treatment, [address], [place] [phone] Nila, Chair 3 Hem Onc [address] [place] [address] 06/11/2024 9:00 AM EST Office Visit Palliative Medicine [facility] [place] [address] [facility] [phone] Dorinda Lyn MD 400 [place] [address] 07/22/2024 9:40 AM EST Office Visit General Internal Medicine [facility] 200 [facility] [place] [address] Lia Kilgore MD 200 [facility] [place] [address] 09/08/2024 3:20 PM EST Office Visit Hepatology, [facility] [address] [place] [address] Zabrina Ya DO [address] [address] 10/07/2024 1:40 PM EDT Office Visit Nephrology, [facility] [address] [place] [address] Breezy Kilgore MD [facility] [place] [address] 12/02/2024 10:00 AM EDT Office Visit Cardiology, [facility] [address] [place] [address] Fallon Gifford CRNP [address] [place] [address] Health Maintenance Due Date [...] Additional history exists CKD HGB USE SMARTSET 66090 05/23/202505/23, 05/23/2024, 04/23/2024, Additional history exists CKD PHOS USE SMARTSET 86851 05/23/202505/09, 04/07/2024, 11/19/2023, Additional history exists TSH [...] this encounter Medical Devices Implanted Type Area Media Planner / Buyer Device Identifier Shelf Expiration Date Model / Serial / Lot Suture Steel 6 B&S19 M654g - [id number] Implanted:Qty: 7 on 05/30/2021 by Uvaldo Fleming MD at [facility] N/A: Sternum JNJ : [employer] 01/05/2026 M654G / / [id number] Lipiodol Injection - [id number] Implanted:Qty: 2 on 09/06/2021 at [facility] [employer] 10/06/2022 [id number] -[id number] / [id number] / [id number] Lipiodol Injection - [id number] Implanted:Qty: 1 on 09/06/2021 at [facility] [employer] 10/06/2022 [id number] -2 / [id number] / [id number] documented as of this encounter Visit Diagnoses Diagnosis Nausea Nausea alone documented in this encounter Advance Directives * [...] Advance Directives occurred with: Patient Care Teams Video Clerk Relationship Specialty Start Date End Date Lia Kilgore MD 200 [place] [address] PCP - General Internal Medicine 04/06/21 documented as of this encounter
--- OUTSIDE RECORDS SUMMARY | 2024-07-18 22:29 | External Medical Summary ---
Author Name Unknown Address Unknown Organization [facility] [address] [place] [address] Laboratory Report Ordering Provider Test Date Status MAGUI JUNE 05/23/2024 10:00:19 Final Please fax results to Observation Date Value Abnormality Reference (Units ) Status Nucleated erythrocytes/100 leukocytes [Ratio] in Blood by Automated count 05/23/2024 10:00:19 Final Elliptocytes [Presence] in Blood by Light microscopy 05/23/2024 10:00:19 Moderate Abnormal None Seen Final Performing Location [facility] [address] - [address] [place] [address]
--- OUTSIDE RECORDS SUMMARY | 2024-07-18 22:29 | External Medical Summary ---
Author Name Unknown Address Unknown Organization [facility] [address] - [address] [place] [address] Laboratory Report Ordering Provider Test Date Status MAGUI JUNE 05/23/2024 10:00:19 Final Please fax results to Observation Date Value Abnormality Reference (Units ) Status WBC, Total 05/23/2024 10:00:19 6.62 4.00-10.8 0 (K/uL) Final RBC 05/23/2024 10:00:19 4.13 4.50-5.25 (M/uL) Final Hemoglobin 05/23/2024 10:00:19 10.2 Below low normal 14 .0-16.8 (g/dL) Final HCT 05/23/2024 10:00:19 33.0 Below low normal 40. 0-48.4 (%) Final MCV 05/23/2024 10:00:19 79.9 82.0-99.5 (fL) Final MCH 05/23/2024 10:00:19 24.7 27.0-34.0 (pg) Final MCHC 05/23/2024 10:00:19 30.9 32.0-36.0 (g/dL) Final RDW 05/23/2024 10:00:19 18.2 11.5-15.5 (%) Final Platelets 05/23/2024 10:00:19 202 140-400 (K /uL) Final MPV 05/23/2024 10:00:19 11.2 6.6-11.1 ( fL) Final Performing Location [facility] [address] 0 - [address] [place] [address]
--- OUTSIDE RECORDS SUMMARY | 2024-07-18 22:29 | External Medical Summary | Summary of Care ---
Author Name Unknown Organization [facility] Address [address] [place] [address] Phone [phone] Care Team Providers Care Golf Course Laborer Name Role Phone Lia Meadows MD Primary Care Provider [phone] Reason for Visit * Reason Comments Outpatient Testing Encounter Details Date Type Department Care Team (Late st Contact Info) Description 05/23/2024 10:10 AM EST Laboratory Laboratory, [facility] [place] [address] [facility] [address] [place] [address] Cirrhosis of liver with ascites, unspecified hepatic cirrhosis type (HCC); Type 2 diabetes mellitus with stage 3b chronic kidney disease, unspecified whether mcc insulin use (HCC); Acquired hypothyroidism; Chronic kidney disease, stage 3b (HCC); HTN, goal below 140/90; DELIA (acute kidney injury) (HCC); Vitamin D deficiency; Bilateral lower extremity edema; DM type 2, goal HbA1c < 7% (HCC); Encounter for long-term (current) use of medications; Type 2 diabetes mellitus with hemoglobin A1c goal of less than 8.0% (HCC); Stage 3b chronic kidney disease (HCC); Alcoholic cirrhosis of liver with ascites (HCC) Allergies Active Allergy Reactions Criticality Noted Date Comments Sulfa Antibiotics Edema Other Medium 02/01/2016 Other reaction(s): unknown Tramadol Nausea/vomiting 04/01/2021 documented as of this encounter (statuses as of 05/23/2024) Medications Vitamin D3 50 MCG (1999) Oral [...] DM type 2, goal HbA1c < 7% ([facility]) Use as directed 4 times a day . Use up to 3-4 times a day as directed 100 Strip 5 11/22/19 22 Active BD Pen Needle Zora U/F 32G X 4 MM (Insulin Pen Needle)Indications :Type 2 diabetes mellitus with hemoglobin A1c goal of less than 7.0% ([facility]) Use once daily with insulin [...] liver with ascites, unspecified hepatic cirrhosis type ([facility]) Take 1 Tablet by mouth in the morning. 180 Tablet 1 10/09/19 24 Active Metoprolol Succinate ER 100 MG Oral Tablet Extended Release 24 Hour (toPROL XL)Indications:Eugenie lothorax, right,Coronary artery disease involving [place] coronary artery of [place] heart without angina pectoris,S/P CABG x 3,HFrEF (heart failure with reduced ejection fraction) ([facility]),Ischemic cardiomyopathy,PAF (paroxysmal atrial fibrillation) ([facility]),HTN, goal below 140/90,Dyslipidemi a, goal LDL below 70,Cerebrovascular accident (CVA), unspecified mechanism ([facility]) TAKE 1 TABLET BY MOUTH EVERY DAY IN THE MORNING AND BEFORE BEDTIME 180 Tablet 3 10/15/19 24 Active Additional Information Patient taking differently: 50 mg Oral BID (.AM/PM), Reported on 05/23/2024 Aspirin Low Dose 81 MG Oral Tablet Delayed Release (aspirin enteric coated)Indications :Coronary artery disease involving [place] coronary artery of [place] heart without angina pectoris,Ischemic cardiomyopathy,PAF (paroxysmal atrial fibrillation) (HCC) TAKE 1 TABLET BY MOUTH EVERY DAY IN THE MORNING 90 Tablet 3 10/15/19 24 Active Additional Information Patient taking differently: 81 mg Oral EVERY OTHER DAY, Indications: sunday,wednesdays,fridays, Reported on 10/16/2023 Blood Glucose Monitoring Suppl w/Device KitIndications: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, unspecified whether computer terminal operator insulin use ([facility]),Type 2 diabetes mellitus with hemoglobin A1c goal of less than 8.0% ([facility]),Diabetic peripheral neuropathy ([facility]),Type 2 diabetes mellitus with stage 3a chronic kidney disease, unspecified whether mcc insulin use ([facility]) Check sugar before meals, at [...] hemoglobin A1c goal of less than 8.0% ([facility]),Type 2 diabetes mellitus with stage 3a chronic kidney disease, unspecified whether mcc insulin use ([facility]) INJECT 1 SYRINGE SUBCUTANEOUSLY ONCE A WEEK 6 mL 3 01/22/20 Active Additional Information Patient not taking.Reported on 05/23/2024 Atorvastatin Calcium 40 MG Oral Tablet (Lipitor)Indicatio ns:Hyperlipidemia LDL goal <100 TAKE 1 TABLET BY MOUTH EVERY DAY 90 Tablet 1 03/28/20 24 Active FreeStyle Frankie 14 Day [place] DeviceIndications: Type 2 diabetes mellitus with hemoglobin A1c goal of less than 8.0% ([facility]),Uncontrolled type 2 diabetes mellitus with hyperglycemia (HCC),Current use of insulin (HCC) Use as directed. 1 Each 04/04/20 24 Active FreeStyle Frankie 3 Sensor Use as directed every 14 days. 2 Each 11 04/07/20 Active FreeStyle Frankie 3 [place] Device Use as directed. 1 Each 1 04/07/20 Active Vancomycin HCl 250 MG Oral Capsule [...] as of this encounter (statuses as of 05/23/2024) Active Problems Problem Noted Date Diagnosed Date [...] as of this encounter (statuses as of 05/23/2024) Resolved Problems Problem Noted Date Diagnosed Date [...] as of this encounter (statuses as of 05/23/2024) Immunizations Name Administration Dates Next Due COVID-19 [...] German Magana RN documented in this encounter Plan of Treatment Upcoming Encounters Date Type Department Care Team (Late st Contact Info) Description 05/28/2024 2:00 PM EST Office Visit Cardiology, [facility] 132 [facility] [place] [address] Fallon Gifford CRNP [address] [place] [address] 06/09/2024 2:00 PM EST Office Visit Hematology/Oncology [facility] [phone] Mónica Cantu MD [address] [place] [phone] 06/09/2024 2:30 PM EST Immunization/Inje ction Hematology/Oncology Treatment, [place] [address] [place], [place] [address] Nila, Chair 3 Hem Onc [facility] 200 [facility] [place] [address] 07/22/2024 9:40 AM EST Office Visit General Internal Medicine [facility] [place] 200 [facility] [place] [address] Lia Meadows MD 200 [facility] [place] [address] 09/08/2024 3:20 PM EST Office Visit Hepatology, [facility] [address] [place] [address] Zabrina Ya DO [address] [place] [address] 10/07/2024 1:40 PM EDT Office Visit Nephrology, [facility] 200 [facility] [place] [address] Breezy Meadows MD 200 [facility] [place] [address] Pending Results Name Type Priority Associated Diagnoses Date /Time COMPREHENSIVE METABOLIC PANEL Lab Routine Cirrhosis of liver with ascites, unspecified hepatic cirrhosis type (HCC) 05/23/2024 10:00 AM EST HEMOGLOBIN A1C Lab Routine Type 2 diabetes mellitus with stage 3b chronic kidney disease, unspecified whether mcc insulin use (HCC) 05/23/2024 10:00 AM EST TSH WITH FREE T4 IF INDICATED Lab Routine Acquired hypothyroidism 05/23/2024 10:00 AM EST PHOSPHORUS Lab Routine Chronic kidney disease, stage 3b (HCC) 05/23/2024 10:00 AM EST CBC WITH WBC DIFFERENTIAL Lab Routine HTN, goal below 140/90 Chronic kidney disease, stage 3b (HCC) DELIA (acute kidney injury) (HCC) 05/23/2024 10:00 AM EST PTH Lab Routine HTN, goal below 140/90 Chronic kidney disease, stage 3b (HCC) DELIA (acute kidney injury) (HCC) 05/23/2024 10:00 AM EST 25-HYDROXY VITAMIN D Lab Routine HTN, goal below 140/90 Chronic kidney disease, stage 3b (HCC) DELIA (acute kidney injury) (HCC) Vitamin D deficiency 05/23/2024 10:00 AM EST LIPID PANEL WITH DIRECT LDL IF TG IS HIGH Lab Routine DM type 2, goal HbA1c < 7% (HCC) Encounter for long-term (current) use of medications 05/23/2024 10:00 AM EST ALPHA-FETOPROTEIN TUMOR MARKER Lab Routine Alcoholic cirrhosis of liver with ascites (HCC) 05/23/2024 10:00 AM EST CBC Lab Routine HTN, goal below 140/90 Chronic kidney disease, stage 3b (HCC) DELIA (acute kidney injury) (HCC) 05/23/2024 10:00 AM EST DIFFERENTIAL, AUTOMATED Lab Routine HTN, goal below 140/90 Chronic kidney disease, stage 3b (HCC) DELIA (acute kidney injury) (HCC) 05/23/2024 10:00 AM EST BILIRUBIN, DIRECT Lab Routine Stage 3b chronic kidney disease (HCC) 05/23/2024 10:00 AM EST URINALYSIS WITH MICROSCOPIC EXAM Lab Routine HTN, goal below 140/90 Chronic kidney disease, stage 3b (HCC) DELIA (acute kidney injury) (HCC) 05/23/2024 10:05 AM EST ALBUMIN / CREATININE RATIO, URINE Lab Routine HTN, goal below 140/90 Chronic kidney disease, stage 3b (HCC) DELIA (acute kidney injury) (HCC) 05/23/2024 10:05 AM EST PROTEIN/ CREATININE RATIO, URINE Lab Routine Stage 3b chronic kidney disease (HCC) 05/23/2024 10:05 AM EST Health Maintenance Due Date Last Done Comments Zoster Vaccines (1 of 2) 1996 Hepatitis B Vaccine (1 of 3 - Risk 3-dose series) 2006 Adult Wellness Visit 2012 HbA1c 02/21/2024 08/23/2023, 02/07, 11/30/2022, Additional history exists COVID-19 Vaccine ( season) 2024 05/09/2021, 10/12/2020, 09/22/2020 Diabetic Foot Exam 06/13/2024 06/13/2023, 1 , 05/05/2021 TSH 06/13/2024 06/13/2023, 11/07, 12/07/2021, Additional history exists Albumin/Creatinine Ratio 08/23/2024 024, 07/26/2022, 05/05/2021 GFR 10/09/2024 04/10/2024, 03/11, 11/19/2023, Additional history exists Diabetic Eye Exam 01/24/2025 01/25/2024, , 11/09/2023, Additional history exists CKD PHOS USE SMARTSET 23215 04/07/202503/11, 11/19/2023, 09/27/2022, Additional history exists Depression Screening 04/21/2025 04/21/2024 CKD HGB USE SMARTSET 41437 04/23/202504/23, 04/23/2024, 04/07/2024, Additional history exists DTap/Tdap Vaccines (3 - [...] this encounter Medical Devices Implanted Type Area Wearing Apparel Shaker Device Identifier Shelf Expiration Date Model / Serial / Lot Suture Steel 6 B&S19 M654g - [id number] Implanted:Qty: 7 on 05/30/2021 by Uvaldo Fleming MD at [facility] N/A: Sternum JNJ : [employer] 01/05/2026 M654G / / [id number] Lipiodol Injection - [id number] Implanted:Qty: 2 on 09/06/2021 at [facility] [employer] [facility] 10/06/2022 [id number] -2 / [id number] / [id number] Lipiodol Injection - [id number] Implanted:Qty: 1 on 09/06/2021 at [facility] [employer] [facility] 10/06/2022 [id number] -2 / [id number] / [id number] documented as of this encounter Visit Diagnoses Diagnosis Cirrhosis of liver with ascites, unspecified hepatic cirrhosis type (HCC) Type 2 diabetes mellitus with stage 3b chronic kidney disease, unspecified whether computer terminal operator insulin use (HCC) Acquired hypothyroidism Unspecified hypothyroidism Chronic kidney disease, stage 3b (HCC) HTN, goal below 140/90 Unspecified essential hypertension DELIA (acute kidney injury) (HCC) Acute kidney failure, unspecified Vitamin D deficiency Unspecified vitamin D deficiency Bilateral lower extremity edema Edema Encounter for long-term (current) use of medications Encounter for long-term (current) use of other medications Stage 3b chronic kidney disease (HCC) Alcoholic [...] Advance Directives occurred with: Patient Care Teams Golf Course Laborer Relationship Specialty Start Date End Date Lia Meadows MD 200 [place] [address] PCP - General Internal Medicine 04/06/21 documented as of this encounter
--- OUTSIDE RECORDS SUMMARY | 2024-07-18 22:29 | External Medical Summary ---
Author Name Unknown Address Unknown Organization [facility] [place] [address] - [address] [place] [address] Laboratory Report Ordering Provider Test Date Status ERICACERYNEBEATRIS 05/23/2024 10:00:19 Final Warfarin Therapy
INR: 2 .0-3.0 conventional anticoagulation
INR: 2.5- 3.5 high intensity anticoagulation Observation Date Value Abnormality Reference (Units ) Status PT 05/23/2024 10:00:19 23.7 Above high normal 11 .6-15.2 (seconds) Final INR 05/23/2024 10:00:19 2.1 Above high normal 0. 8-1.2 Final Performing Location [facility] [place] [address] - [address] [place] [address]
--- OUTSIDE RECORDS SUMMARY | 2024-07-18 22:29 | External Medical Summary ---
Author Name Unknown Address Unknown Organization [facility] [place] [address] - [address] [place] [address] Laboratory Report Ordering Provider Test Date Status MAGUI JUNE 05/23/2024 10:00:19 Final Please fax results to [id number] [phone] Observation Date Value Abnormality Reference (Units ) Status SYNC LEUKOCYTES IN BLOOD BY AUTOMATED COUNT 05/23/2024 10:00:19 6.62 4.00-10.80 (K/uL) Final Segs 05/23/2024 10:00:19 57.6 40.0-75.0 (%) Final Lymphs % 05/23/2024 10:00:19 23.4 18.0-42.0 (%) Final Monos 05/23/2024 10:00:19 16.0 Above high normal 1.0-11.0 (%) Final Eosinophils 05/23/2024 10:00:19 2.1 0.0-6.0 (%) Final Basos 05/23/2024 10:00:19 0.9 0.0-2.0 (%) Final Absolute Segs 05/23/2024 10:00:19 3.81 1.80-7.70 (K/uL) Final Lymphs, absolute 05/23/2024 10:00:19 1.55 1.00-4.80 (K/ul) Final Monos, Abs 05/23/2024 10:00:19 1.06 0.00-1.10 (K/uL) Final Eos, Abs 05/23/2024 10:00:19 0.14 0.00-0.70 (K/uL) Final Basos, Abs 05/23/2024 10:00:19 0.06 0.00-0.20 (K/uL) Final Performing Location [facility] [place] [address] - [address] [place] [address]
--- OUTSIDE RECORDS SUMMARY | 2024-07-18 22:29 | External Medical Summary ---
Author Name Unknown Address Unknown Organization [facility] [address] - [address] [place] [address] Laboratory Report Ordering Provider Test Date Status DOUG WHITEHEADDUSTIN 05/23/2024 10:00:19 Final Observation Date Value Abnormality Reference (Units ) Status Bilirubin, Direct 05/23/2024 10:00:19 0.4 Above high normal 0.0-0.3 (mg/dL) Final Performing Location [facility] [address] - [address] [place] [address]
--- OUTSIDE RECORDS SUMMARY | 2024-07-18 22:29 | External Medical Summary ---
Author Name Unknown Address Unknown Organization [id number]:LABORATORY [facility] [place] - [facility] [address] [facility] [address] Laboratory Report Ordering Provider Test Date Status MAGUI JUNE 05/23/2024 10:00:19 Final Observation Date Value Abnormality Reference (Units ) Status HbA1C 05/23/2024 10:00:19 6.0 Above high normal 4. 0-5.6 (%) Final The use of HbA1c to monitor glycemic status is based on normal hemoglobin and HbA composition. This test should not be used in patients with abnormal hemoglobin that affects the half life of the red blood cell or the in vivo glycation rates. Glucose, estimated average 05/23/2024 10:00:19 126 Above high normal <126 (mg/dL) Dain whitney Performing Location LAB[facility]ORY [facility] [place] - [address] [facility] [address]
--- OUTSIDE RECORDS SUMMARY | 2024-07-18 22:29 | External Medical Summary ---
Author Name Unknown Address Unknown Organization [id number]:[place] [place] [address] [place] [address] Laboratory Report Ordering Provider Test Date Status MAGUI JUNE 05/23/2024 10:00:19 Final Observation Date Value Abnormality Reference (Units ) Status TSH 05/23/2024 10:00:19 2.34 0.27-4.20 (uIU/mL) Final Performing Location [facility] [place] [address] [place] [address]
--- OUTSIDE RECORDS SUMMARY | 2024-07-18 22:29 | External Medical Summary ---
Author Name Unknown Address Unknown Organization [id number]:[facility] [place] - [address] [facility] [address] Laboratory Report Ordering Provider Test Date Status JUSTA TATUM 05/23/2024 10:00:19 Final Observation Date Value Abnormality Reference (Units ) Status Triglyceride 05/23/2024 10:00:19 44 <=174 ( mg/dL) Final Triglyceride Reference Range s (mg/dL):
<150 Acceptable
150-174 Borderline high
175-499 High
>=500 Very high Cholesterol 05/23/2024 10:00:19 65 <200 (mg /dL) Final Total Cholesterol Reference Ranges (mg/dL):
<200 Desirable
200-239 Borderline high
>=240 High HDL 05/23/2024 10:00:19 41 >39 (mg/dL ) Final HDL Cholesterol Reference Ra nges (mg/dL):
>=60 High (Desirable)
<50 Low (Undesirable) For Females
<40 Low (Undesirable) For Males NON-HDL CHOLESTEROL 05/23/2024 10:00:19 24 <=159 (mg/dL) Final Non-HDL Cholesterol Referenc e Range (mg/dL):
<100 Target level for high risk ASCVD patient
<130 Optimal for general population
130-159 Near optimal for general population
160-189 Borderline High
190-219 High
>=220 Very High LDL, (calculated) 05/23/2024 10:00:19 15 <= 129 (mg/dL) Final LDL Cholesterol Reference Ra nges (mg/dL):
<70 Target level for high risk ASCVD patient
<100 Optimal for general population
100-129 Near optimal for general population
130-159 Borderline high
160-189 High
>=190 Very high Performing Location [facility] [place] - [address] [facility] [address]
--- OUTSIDE RECORDS SUMMARY | 2024-07-18 22:29 | External Medical Summary ---
Author Name Unknown Address Unknown Organization [id number]:[place] [place] [address] [place] [address] Laboratory Report Ordering Provider Test Date Status MAGUI JUNE 05/23/2024 10:00:19 Final Please fax results to [phone] Observation Date Value Abnormality Reference (Units ) Status Parathyrin.intact [Mass/volume] in Serum or Plasma 05/23/2024 10:00:19 142 Above high normal 15-65 (pg/mL) Final Performing Location [facility] [place] [address] [place] [address]
--- OUTSIDE RECORDS SUMMARY | 2024-07-18 22:29 | External Medical Summary | Summary of Care ---
Author Name Unknown Organization [facility] Address [address] [place] [address] Phone [phone] Care Team Providers Care Plant Safety Leader Name Role Phone Lia Meadows MD Primary Care Provider [phone] Reason for Visit * Reason Comments Outpatient Testing Encounter Details Date Type Department Care Team (Late st Contact Info) Description 05/23/2024 10:10 AM EST Laboratory Laboratory, [facility] [address] [facility] [address] [facility] [address] [place] [address] Cirrhosis of liver with ascites, unspecified hepatic cirrhosis type (HCC); Type 2 diabetes mellitus with stage 3b chronic kidney disease, unspecified whether residential insulin use (HCC); Acquired hypothyroidism; Chronic kidney [...] 2, goal HbA1c < 7% ([facility]) Use as directed 4 times a day . Use up to 3-4 times a day as directed 100 Strip 5 11/22/19 22 Active BD Pen Needle Zora U/F 32G X 4 MM (Insulin Pen Needle)Indications :Type 2 diabetes mellitus with hemoglobin A1c goal of less than 7.0% ([facility]) Use once daily with insulin [...] ascites, unspecified hepatic cirrhosis type ([facility]) Take 1 Tablet by mouth in the morning. 180 Tablet 1 10/09/19 24 Active Metoprolol Succinate ER 100 MG Oral Tablet Extended Release 24 Hour (toPROL XL)Indications:Eugenie lothorax, right,Coronary artery disease involving tolowa dee-ni' coronary artery of tolowa dee-ni' heart without angina pectoris,S/P CABG x 3,HFrEF (heart failure with reduced ejection fraction) ([facility]),Ischemic cardiomyopathy,PAF (paroxysmal atrial fibrillation) ([facility]),HTN, goal below 140/90,Dyslipidemi a, goal LDL below 70,Cerebrovascular accident (CVA), unspecified mechanism ([facility]) TAKE 1 TABLET BY MOUTH EVERY DAY IN THE MORNING AND BEFORE BEDTIME 180 Tablet 3 10/15/19 24 Active Additional Information Patient taking differently: 50 mg Oral BID (.AM/PM), Reported on 05/23/2024 Aspirin Low Dose 81 MG Oral Tablet Delayed Release (aspirin enteric coated)Indications :Coronary artery disease involving tolowa dee-ni' coronary artery of tolowa dee-ni' heart without angina pectoris,Ischemic cardiomyopathy,PAF (paroxysmal atrial fibrillation) (HCC) TAKE 1 TABLET BY MOUTH EVERY DAY IN THE MORNING 90 Tablet 3 10/15/19 24 Active Additional Information Patient taking differently: 81 mg Oral EVERY OTHER DAY, Indications: sunday,wednesdays,fridays, Reported on 10/16/2023 Blood Glucose Monitoring Suppl w/Device KitIndications: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, unspecified whether tank terminal gauger insulin use ([facility]),Type 2 diabetes mellitus with hemoglobin A1c goal of less than 8.0% ([facility]),Diabetic peripheral neuropathy ([facility]),Type 2 diabetes mellitus with stage 3a chronic kidney disease, unspecified whether residential insulin use ([facility]) Check sugar before meals, at [...] goal of less than 8.0% ([facility]),Type 2 diabetes mellitus with stage 3a chronic kidney disease, unspecified whether residential insulin use ([facility]) INJECT 1 SYRINGE SUBCUTANEOUSLY ONCE A WEEK 6 mL 3 01/22/20 Active Additional Information Patient not taking.Reported on 05/23/2024 Atorvastatin Calcium 40 MG Oral Tablet (Lipitor)Indicatio ns:Hyperlipidemia LDL goal <100 TAKE 1 TABLET BY MOUTH EVERY DAY 90 Tablet 1 03/28/20 24 Active FreeStyle Frankie 14 Day [place] DeviceIndications: Type 2 diabetes mellitus with hemoglobin A1c goal of less than 8.0% ([facility]),Uncontrolled type 2 diabetes mellitus with hyperglycemia (HCC),Current use of insulin (HCC) Use as directed. 1 Each 04/04/20 24 Active FreeStyle Frankie 3 Sensor Use as directed every 14 days. 2 Each 11 04/07/20 Active FreeStyle Frankie 3 [place] Device Use as directed. 1 Each 1 [...] 05/28/2024 2:00 PM EST Office Visit Cardiology, [facility] [address] [facility] [place] [address] Fallon Gifford CRNP [address] [place] [address] 06/09/2024 2:00 PM EST Office Visit Hematology/Oncology [facility] [address] [facility] [phone] Mónica Cantu MD [address] [place] [address] 06/09/2024 2:30 PM EST Immunization/Inje ction Hematology/Oncology Treatment, [place] [address] [place], [place] [address] Nila, Chair 3 Hem Onc [facility] [address] [facility] [place] [address] 07/22/2024 9:40 AM EST Office Visit General Internal Medicine [facility] [place] [address] [facility] [place] [address] Lia Meadows MD [address] [facility] [place] [address] 09/08/2024 3:20 PM EST Office Visit Hepatology, [facility] [address] [place] [address] Zabrina Ya DO [address] [place] [address] 10/07/2024 1:40 PM EDT Office Visit Nephrology, [facility] [address] [facility] [place] [address] Breezy Meadows MD [address] [facility] [place] [address] Pending Results Name Type Priority Associated Diagnoses Date /Time COMPREHENSIVE METABOLIC PANEL Lab Routine Cirrhosis of liver with ascites, unspecified hepatic cirrhosis type (HCC) 05/23/2024 10:00 AM EST HEMOGLOBIN A1C Lab Routine Type 2 diabetes mellitus with stage 3b chronic kidney disease, unspecified whether residential insulin use (HCC) 05/23/2024 10:00 AM EST [...] Additional history exists CKD PHOS USE SMARTSET 27394 04/07/202503/11, 11/19/2023, 09/27/2022, Additional history exists Depression Screening 04/21/2025 04/21/2024 CKD HGB USE SMARTSET 93728 04/23/202504/23, 04/23/2024, 04/07/2024, Additional history exists DTap/Tdap [...] encounter Medical Devices Implanted Type Area Net Development Manager Device Identifier Shelf Expiration Date Model / Serial / Lot Suture Steel 6 B&S19 M654g - [id number] Implanted:Qty: 7 on 05/30/2021 by Uvaldo Fleming MD at [facility] N/A: Sternum JNJ : [employer] 01/05/2026 M654G / / [id number] Lipiodol Injection - [id number] Implanted:Qty: 2 on 09/06/2021 at [facility] [employer] [facility] 10/06/2022 [id number] -[id number] / [id number] / [id number] Lipiodol Injection - [id number] Implanted:Qty: 1 on 09/06/2021 at [facility] [employer] [facility] 10/06/2022 [id number] -2 / [id number] / [id number] documented as of this encounter Visit Diagnoses Diagnosis Cirrhosis of liver with ascites, unspecified hepatic cirrhosis type (HCC) Type 2 diabetes mellitus with stage 3b chronic kidney disease, unspecified whether tank terminal gauger insulin use (HCC) Acquired hypothyroidism Unspecified hypothyroidism [...] Advance Directives occurred with: Patient Care Teams Plant Safety Leader Relationship Specialty Start Date End Date Lia Meadows MD [address] [place] [address] PCP - General Internal Medicine 04/06/21 documented as of this encounter
--- OUTSIDE RECORDS SUMMARY | 2024-07-18 22:29 | External Medical Summary ---
Author Name Unknown Address Unknown Organization K0G:LABORATORY [facility] - [address] [place] [address] Laboratory Report Ordering Provider Test Date Status MAGUI JUNE 05/23/2024 10:00:19 Final Observation Date Value Abnormality Reference (Units ) Status BUN 05/23/2024 10:00:19 40 Above high normal 6-20 (mg/dL) Final Creatinine 05/23/2024 10:00:19 2.7 Above high normal 0.6-1.2 (mg/dL) Final Glomerular filtration rate/1.73 sq M.predicted [Volume Rate/Area] in Serum, Plasma or Blood by Creatinine-based formula (CKD-EPI) 05/23/2024 10:00:19 24 Below low normal >=60 (mL/min) Final eGFR is calculated based on the CKD-EPI 2020 equation. Sodium 05/23/2024 10:00:19 137 135-146 (m mol/L) Final Potassium 05/23/2024 10:00:19 4.4 3.5-5.1 (m mol/L) Final Cl 05/23/2024 10:00:19 107 98-107 (mm ol/L) Final CO2 05/23/2024 10:00:19 17 Below low normal 22- 32 (mmol/L) Final Anion gap 05/23/2024 10:00:19 13 7-15 (mmol /L) Final Glucose 05/23/2024 10:00:19 126 Above high normal 70 -120 (mg/dL) Final Albumin 05/23/2024 10:00:19 3.4 Below low normal 3.8 -5.0 (g/dL) Final AST (Aspartate aminotransferase) 05/23/2024 10:00:19 16 10-50 (U/L) Fin al Alk Phos 05/23/2024 10:00:19 152 Above high normal 35 -130 (U/L) Final Bilirubin, Total 05/23/2024 10:00:19 1.2 <=1 .2 (mg/dL) Final Calcium 05/23/2024 10:00:19 9.2 8.4-10.2 ( mg/dL) Final Protein 05/23/2024 10:00:19 6.1 6.0-8.3 (g /dL) Final ALT (Alanine aminotransferase) 05/23/2024 10:00:19 11 10-50 (U/L) Dain whitney Performing Location LABORATORY [place] [facility]-[address] 0 - [address] [facility] [address]
--- OUTSIDE RECORDS SUMMARY | 2024-07-18 22:29 | External Medical Summary | Summary of Care ---
Author Name Unknown Organization [facility] Address [address] [place] [address] Phone [phone] Care Team Providers Care Church History Professor Name Role Phone Lia Meadows MD Primary Care Provider [phone] Reason for Referral * Evaluate & Treat - Unlimited Visits (Within 3 days (urgent)) - Authorized Specialty Diagnoses / Procedures Referred By Contact Referred To Contact Cardiovascular Medicine / Cardiology Diagnoses Hx of CABG Zabrina Ya DO [address] [place] [address] Phone: tel: fax: Referral ID Status Reason Start Date Expiration Date Visits Requested Visits Authorized [id number] Authorized Specialty Services Required 4 [phone] [...] (HCC) Zabrina Ya DO [address] [place] [address] Phone: tel: fax: Referral ID Status Reason Start Date Expiration Date Visits Requested Visits Authorized [id number] Authorized Specialty Services Required 4 [phone] [...] 05/23/2024 8:40 AM EST Office Visit Hepatology, [facility] [address] [place] [address] Zabrina Ya DO [address] [place] [address] Insomnia, unspecified type*; Malignant neoplasm of stomach, [...] DM type 2, goal HbA1c < 7% ([facility] [...] (toPROL XL)Indications:Eugenie lothorax, right,Coronary artery disease involving [place] coronary artery of [place] heart without angina pectoris,S/P CABG x 3,HFrEF (heart failure with reduced ejection fraction) ([facility]),Ischemic cardiomyopathy,PAF (paroxysmal atrial fibrillation) ([facility]),HTN, goal below 140/90,Dyslipidemi a, goal LDL [...] (aspirin enteric coated)Indications :Coronary artery disease involving [place] coronary artery of [place] heart without angina pectoris,Ischemic cardiomyopathy,PAF (paroxysmal atrial fibrillation) ([facility]) TAKE 1 TABLET BY MOUTH EVERY DAY IN THE MORNING 90 Tablet 3 10/15/19 24 Active Additional Information Patient taking differently: 81 mg Oral EVERY OTHER DAY, Indications: sunday,wednesdays,fridays, Reported on 10/16/2023 Blood Glucose Monitoring Suppl w/Device KitIndications: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, unspecified whether usp insulin use ([facility]),Type 2 diabetes mellitus with hemoglobin A1c goal of less than 8.0% (HCC),Diabetic peripheral neuropathy (HCC),Type 2 diabetes mellitus with stage 3a chronic kidney disease, unspecified whether usp insulin use ([facility]) Check sugar before meals, at night [...] stage 3a chronic kidney disease, unspecified whether ferry terminal supervisor insulin use ([facility]) INJECT 1 SYRINGE SUBCUTANEOUSLY ONCE A WEEK 6 mL 3 01/22/20 24 Active Additional Information Patient not taking.Reported on 05/23/2024 Atorvastatin Calcium 40 MG Oral Tablet (Lipitor)Indicatio ns:Hyperlipidemia LDL goal <100 TAKE 1 TABLET BY MOUTH EVERY DAY 90 Tablet 1 03/28/20 24 Active FreeStyle Frankie 14 Day Phillips DeviceIndications: Type 2 diabetes mellitus with hemoglobin A1c goal of less than 8.0% ([facility]),Uncontrolled type 2 diabetes mellitus with hyperglycemia (HCC),Current use of insulin ([facility]) Use as directed. 1 Each 04/04/20 24 Active FreeStyle Frankie 3 Sensor Use as directed every 14 days. 2 Each 11 04/07/20 24 Active FreeStyle Frankie 3 Phillips Device Use as directed. 1 Each 1 [...] in september 2021 after he presented to [facility] and found to have ascites. Patient [...] lot has occurred. Had EGD 03/2024 at [facility] for melena found to have 2 smallmucosal [...] GRAFT performed by Uvaldo Fleming MD at [facility] CABG, ARTERY-VEIN, TWO 05/30/2021 CORONARY ARTERY BYPASS GRAFT ARTERIAL AND VENOUS 2 GRAFTS performed by Uvaldo Fleming MD at OR [facility] CORONARY ANGIOGRAPHY W/LEFT HEART CATH Right 05/27/2021 CORONARY ANGIOGRAPHY W/LEFT HEART CATH performed by Jaime Munoz MD at [facility]ARDIAC [facility] EGD, FLEXIBLE, DIAGNOSTIC 06/27/2022 normal scope, 3-4 columns grade I varices , z-line found 40cm from incisors [place] Class II / no specimens collected / ESOPHAGOGASTRODUODENOSCOPY (EGD), FLEXIBLE, TRANSORAL, DIAGNOSTIC performed by Evy Hylton MD at ENDOSCOPY [facility] EGD, FLEXIBLE, DIAGNOSTIC 07/16/2023 grade II esophageal varices/ESOPHAGOGASTRODUODENOSCOPY (EGD), FLEXIBLE, TRANSORAL, DIAGNOSTIC performed by Evy Hylton MD at ENDOSCOPY [facility] EGD, FLEXIBLE, DIAGNOSTIC N/A 10/23/2023 small esophageal varices, scarring from prior banding/portal hypertensive gastropathy/repeat 6 months/ESOPHAGOGASTRODUODENOSCOPY (EGD), FLEXIBLE, TRANSORAL, DIAGNOSTIC performed by Zabrina Ya DO at ENDOSCOPY [facility] EGD, FLEXIBLE, DIAGNOSTIC N/A 09/13/2023 large esophageal varices, banded/portal hypertensive gastropathy/medium amount of food stomach/repeat 6-8 weeks/EGD/[place] ENDO,VIDEO ASSIST HARVEST BRITTANY 05/30/2021 ENDOSCOPY VIDEO ASSISTED HARVEST VEIN performed by Uvaldo Fleming MD at OR [facility] INCISION OF HEART SAC FOR DRAINAGE N/A 11/10/2021 CREATION PERICARDIAL WINDOW performed by Uvaldo Fleming MD at OR [facility] IR ARTERIAL EMBOLIZATION 09/06/2021 IR CHEST TUBE 09/08/2021 THORACOSCOPY, DIAGNOSTIC, LUNGS N/A 08/01/2021 THORACOSCOPY DIAGNOSTIC WITHOUT BIOPSY performed by Uvaldo Fleming MD at OR [facility] No family history on file. Current Outpatient [...] Chest. (Patient not taking: Reported on 11/19/2023) RawlemonTouch Ultra Blue In Vitro Strip (Glucose Blood) [...] 6 mL 3 FreeStyle Frankie 14 Day Phillips Device Use as directed. 1 Each 0 FreeStyle Frankie 3 Sensor Use as directed every 14 days. 2 Each 11 FreeStyle Frankie 3 Phillips Device Use as directed. 1 Each 1 [...] neck. Recent Endoscopic Procedures: Reviewed EGD 03/2024 [facility]: Surgical pathology (03/24/2024) of the proximal body [...] cirrhosis in september after he presented to [facility] and found to have ascites. -Liver [...] sodium diet. Hehas a standing order at [facility]. Unable to increase diuretics further due to [...] tumor of stomach: Had EGD 03/2024 at [facility] for melena found to have 2 small [...] needed. I am updating paracentesis orders at [facility] for up to 10L with albumin to [...] check that they were not drawn at [facility]) Is patient on blood thinners?yes If yes- nursing please address prior to forwarding to scheduling Is patient Diabetic?yes If yes, please remind patient they will be NPO 4 hours prior to paracentesis and may need to consult with who manages their diabetic medications Patient scheduling preferences: [facility] * aLshae Srinivasan, RN - 05/23/2024 8:49 AM EST Follow up visit today. Son present for visit today. Last paracentesis was done on Sunday at [facility]. Son states that he had 5L removed. documented in this encounter Plan of Treatment Upcoming Encounters Date Type Department Care Team (Latest Contact Info) Description 05/23/2024 10:10 AM EST [facility] [address] [place] [phone] [facility] [place] [address] [facility] [place] [address] Cirrhosis of liver with ascites, unspecified hepatic cirrhosis type (HCC); Type 2 diabetes mellitus with stage 3b chronic kidney disease, unspecified whether ferry terminal supervisor insulin use (HCC); Acquired hypothyroidism; Chronic kidney [...] Alcoholic cirrhosis of liver with ascites (HCC) 05/28/2024 2:00 PM EST Office Visit Cardiology, [facility] 132 [place] [address] Fallon Gifford CRNP [address] [facility] [place], [place] [address] 06/09/2024 2:00 PM EST Office Visit Hematology/Oncolog y [facility] 200 [facility] [place] [address] Mónica Cantu MD [address] [place] [address] 06/09/2024 2:30 PM EST Immunization/Inject ion Hematology/Oncolog y Treatment, [place] [address] [facility] [address] Nila, Chair 3 Hem Onc [address] [place] [address] 07/22/2024 9:40 AM EST Office Visit General Internal Medicine [facility] [address] [facility] [place] [address] Lia Meadows MD [address] [facility] [place] [address] 09/08/2024 3:20 PM EST Office Visit Hepatology, [facility] [address] [facility] [place] [address] Zabrina Ya DO [address] [facility] [place] [address] 10/07/2024 1:40 PM EDT Office Visit Nephrology, [address] [place] [address] Breezy Meadows MD 200 [facility] [place] [address] Pending Results Name Type Priority Associated Diagnoses Date /Time ALPHA-FETOPROTEIN TUMOR MARKER Lab Routine Alcoholic cirrhosis of liver with ascites (HCC) 05/23/2024 10:00 AM EST Scheduled Orders Name Type Priority Associated Diagnoses Orde r Schedule ALPHA-FETOPROTEIN TUMOR MARKER Lab Routine Alcoholic cirrhosis of liver with ascites (HCC) Expected: 05/23/2024, Expires: 05/23/2025 US ABDOMINAL PARACENTESIS Medical Imaging Routine Alcoholic cirrhosis of liver with ascites (HCC) Expected: 05/26/2024, Expires: 06/22/2025 Scheduled Referrals Name Type Priority Associated [...] Additional history exists CKD PHOS USE SMARTSET 24373 04/07/202503/11, 11/19/2023, 09/27/2022, Additional history exists Depression Screening 04/21/2025 04/21/2024 CKD HGB USE SMARTSET 08113 04/23/202504/23, 04/23/2024, 04/07/2024, Additional history exists DTap/Tdap [...] this encounter Medical Devices Implanted Type Area Grape Pruner Device Identifier Shelf Expiration Date Model / Serial / Lot Suture Steel 6 B&S19 M654g - [id number] Implanted:Qty: 7 on 05/30/2021 by Uvaldo Fleming MD at [facility] N/A: Sternum JNJ : [employer] 01/05/2026 M654G / / [id number] Lipiodol Injection - [id number] Implanted:Qty: 2 on 09/06/2021 at [facility] [employer] 10/06/2022 [id number] -2 / [id number] / [id number] Lipiodol Injection - [id number] Implanted:Qty: 1 on 09/06/[facility] [employer] 10/06/2022 [id number] -2 / [id number] / [id number] documented as of this encounter Visit Diagnoses Diagnosis Insomnia, unspecified type- Primary Malignant neoplasm of stomach, unspecified location (HCC) Hx of CABG Postsurgical aortocoronary bypass status Alcoholic cirrhosis of liver with ascites (HCC) Alcoholic cirrhosis of liver Cirrhosis of liver with ascites, unspecified hepatic cirrhosis type (HCC) Type 2 diabetes mellitus with stage 3b chronic kidney disease, unspecified whether ferry terminal supervisor insulin use (HCC) Acquired hypothyroidism Unspecified hypothyroidism [...] Advance Directives occurred with: Patient Care Teams Church History Professor Relationship Specialty Start Date End Date Lia Meadows MD [address] [facility] [place] [address] PCP - General Internal Medicine 04/06/21 documented as of this encounter"
--- OUTSIDE RECORDS SUMMARY | 2024-07-18 22:29 | External Medical Summary ---
Author Name Unknown Address Unknown Organization [id number]:LABORATORY [facility] 57-[address] - [address] [place] [address] Laboratory Report Ordering Provider Test Date Status MAGUI JUNE 05/23/2024 10:05:04 Final Please fax results to Observation Date Value Abnormality Reference (Units ) Status Color of Urine by Auto 05/23/2024 10:05:04 Yellow Light Yellow, Yellow, Dark Yellow Final Clarity, Urine 05/23/2024 10:05:04 Slightly Cloudy Abnormal Clear Final Glucose [Mass/volume] in Urine by Automated test strip 05/23/2024 10:05:04 Negative Negative (mg/dL) Final Bilirubin.total [Presence] in Urine by Automated test strip 05/23/2024 10:05:04 Negative Negative Final Ketones [Mass/volume] in Urine by Automated test strip 05/23/2024 10:05:04 Negative Negative (mg/dL) Final Specific gravity, Urine 05/23/2024 10:05:04 >=1.030 1.003-1.030 Final Hemoglobin [Presence] in Urine by Automated test strip 05/23/2024 10:05:04 Trace Abnormal Negative Final pH, Urine 05/23/2024 10:05:04 6.0 5.0-7.5 (Units) Final Protein [Mass/volume] in Urine by Automated test strip 05/23/2024 10:05:04 30 Abnormal Negative (mg/dL) Final Urobilinogen [Mass/volume] in Urine by Automated test strip 05/23/2024 10:05:04 0.2 0.2, 1.0 (mg/dL) Final Nitrite [Presence] in Urine by Automated test strip 05/23/2024 10:05:04 Negative Negative Final Leukocyte esterase [Presence] in Urine by Automated test strip 05/23/2024 10:05:04 Large Abnormal Negative Final RBC, Urine 05/23/2024 10:05:04 3-5 Abnormal 0-2 (/HPF) Final WBC, Urine 05/23/2024 10:05:04 50+ Abnormal 0-2 (/HPF) Final Bacteria [#/area] in Urine sediment by Microscopy high power field 05/23/2024 10:05:04 26-50 Abnormal 0-25 (/HPF) Final Yeast [#/area] in Urine sediment by Microscopy high power field 05/23/2024 10:05:04 Present Abnormal None (/HPF) Final Budding Yeast Present Performing Location LABORATORY [facility] 57-[address] 0 - [address] [facility] [address]
--- OUTSIDE RECORDS SUMMARY | 2024-07-18 22:29 | External Medical Summary | Summary of Care ---
Author Name Unknown Organization [facility] Address [address] [place] [address] Phone [phone] Care Team Providers Care Estimator Project Manager Name Role Phone Lia Meadows MD Primary Care Provider [phone] Encounter Details Date Type Department Care Team (Late st Contact Info) Description 05/20/2024 Result Scan Unspecified Department Mónica Cantu MD [address] [place] [phone] <No scans attached> Allergies Active Allergy Reactions Criticality Noted Date Comments Sulfa Antibiotics Edema Other Medium 02/01/2016 Other reaction(s): unknown Tramadol Nausea/vomiting 04/01/2021 documented as of this encounter (statuses as of 05/21/2024) Medications Vitamin D3 50 MCG (1999) Oral [...] (toPROL XL)Indications:Eugenie lothorax, right,Coronary artery disease involving [place] coronary artery of [place] heart without angina pectoris,S/P CABG x 3,HFrEF [...] 50 mg Oral BID (.AM/PM), Reported on 05/14/2024 Aspirin Low Dose 81 MG Oral Tablet Delayed Release (aspirin enteric coated)Indications :Coronary artery disease involving [place] coronary artery of [place] heart without angina pectoris,Ischemic cardiomyopathy,PAF (paroxysmal atrial fibrillation) ([facility]) TAKE 1 TABLET BY MOUTH EVERY DAY IN THE MORNING 90 Tablet 3 10/15/19 24 Active Additional Information Patient taking differently: 81 mg Oral EVERY OTHER DAY, Indications: sunday,wednesdays,fridays, Reported on 10/16/2023 Blood Glucose Monitoring Suppl w/Device KitIndications: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, unspecified whether long-term insulin use ([facility]),Type 2 diabetes mellitus with hemoglobin A1c goal of less than 8.0% (HCC),Diabetic peripheral neuropathy (HCC),Type 2 diabetes mellitus with stage 3a chronic kidney disease, unspecified whether long-term insulin use ([facility]) Check sugar before meals, at [...] stage 3a chronic kidney disease, unspecified whether termination clerk insulin use ([facility]) INJECT 1 SYRINGE SUBCUTANEOUSLY ONCE A WEEK 6 mL 3 01/22/20 24 Active Additional Information Patient not taking.Reported on 04/21/2024 Atorvastatin Calcium 40 MG Oral Tablet (Lipitor)Indicatio ns:Hyperlipidemia LDL goal <100 TAKE 1 TABLET BY MOUTH EVERY DAY 90 Tablet 1 03/28/20 24 Active FreeStyle Frankie 14 Day [place] DeviceIndications: Type 2 diabetes mellitus with hemoglobin A1c goal of less than 8.0% ([facility]),Uncontrolled type 2 diabetes mellitus with hyperglycemia (HCC),Current use of insulin (HCC) Use as directed. 1 Each 04/04/20 24 Active FreeStyle Frankie 3 Sensor Use as directed every 14 days. 2 Each 04/07/20 24 Active FreeStyle Frankie 3 [place] Device Use as directed. 1 Each 1 04/07/20 24 Active Vancomycin HCl 250 MG Oral Capsule (Vancocin)Indicati ons:Neuroendocrine carcinoma of stomach (HCC) Take 1 Capsule by mouth every 6 hours. 120 Capsule 05/01/20 24 024 Active Additional Information Patient not taking.Reported on 05/14/2024 Lactulose 10 GM/15ML Oral Solution (Constulose)Indica tions:Neuroendocri [...] mouth daily. 90 Tablet 1 05/16/20 Active documented as of this encounter (statuses as of 05/21/2024) Active Problems Problem Noted Date Diagnosed Date [...] as of this encounter (statuses as of 05/21/2024) Resolved Problems Problem Noted Date Diagnosed Date [...] as of this encounter (statuses as of 05/21/2024) Immunizations Name Administration Dates Next Due COVID-19 [...] Care Team (Latest Contact Info) Description 05/23/2024 8:40 AM EST Office Visit Hepatology, [facility] [address] [place] [address] Zabrina Ya, DO [address] [place] [address] 05/27/2024 10:11 AM EST Hospital Encounter OR [facility], Operating Room, [facility] - 4th Floor [address] [place] [phone] Dimitrios Goff, DO [address] [place] [address] 05/27/2024 10:11 AM EST - 05/27/2024 10:45 AM EST Surgery OR [facility], Operating Room, [facility] - 4th Floor [address] [place] [phone] Dimitrios Goff, DO [address] [place] [address] ESOPHAGOGASTRODUODENOSCOPY (EGD), FLEXIBLE, TRANSORAL, DIAGNOSTIC 06/09/2024 2:00 PM EST Office Visit Hematology/Oncol [facility] [place] [address] [place] [phone] Mónica Cantu MD [address] [place] [phone] 06/09/2024 2:30 PM EST Immunization/In jection Hematology/Oncol ogy Treatment, [place] [address] [place] [address] Nila, Chair 3 Hem Onc [facility] [address] [facility] [place], [place] [address] 07/22/2024 9:40 AM EST Office Visit General Internal Medicine [facility] [place] [address] [facility] [place] [address] Lia Meadows MD [address] [facility] [place], [place] [address] 10/07/2024 1:40 PM EDT Office Visit Nephrology, [facility] [address] [facility] [place], [place] [address] Breezy Meadows MD [address] [facility] [place], [place] [address] Scheduled Procedures Name Priority Associated Diagnoses Date/Ti me ESOPHAGOGASTRODUODENOSCOPY ( EGD), FLEXIBLE, TRANSORAL, DIAGNOSTIC Alcoholic cirrhosis of liver with ascites (HCC) Tarry stool 05/27/2024 10:11 AM EST Health Maintenance Due Date Last [...] Additional history exists CKD PHOS USE SMARTSET 08948 04/07/202503/11, 11/19/2023, 09/27/2022, Additional history exists Depression Screening 04/21/2025 04/21/2024 CKD HGB USE SMARTSET 08757 04/23/202504/23, 04/23/2024, 04/07/2024, Additional history exists DTap/Tdap [...] this encounter Medical Devices Implanted Type Area Charter And Tour Bus Driver Device Identifier Shelf Expiration Date Model / Serial / Lot Suture Steel 6 B&S19 M654g - [id number] Implanted:Qty: 7 on 05/30/2021 by Uvaldo Fleming MD at [facility] N/A: Sternandres ZHANG : [employer] 01/05/2026 M654G / / [id number] Lipiodol Injection - [id number] Implanted:Qty: 2 on 09/06/2021 at [employer] [facility] [employer] 10/06/2022 [id number] -2 / [id number] / [id number] Lipiodol Injection - [id number] Implanted:Qty: 1 on 09/06/2021 at [employer] [facility] [employer] 10/06/2022 [id number] -2 / [id number] / [id number] documented as of this encounter Procedures Procedure Name Priority Date/Time Associated Diagnosis Comments OUTSIDE LAB RESULTS 05/20/2024 documented in this encounter Results * OUTSIDE LAB RESULTS (05/20/2024) 05/20/2024 Mónica Cantu MD LABORATORY Final Result documented in this encounter Advance Directives * [...] Advance Directives occurred with: Patient Care Teams Estimator Project Manager Relationship Specialty Start Date End Date Lia Meadows MD [address] [facility] [place] [address] PCP - General Internal Medicine 04/06/21 documented as of this encounter
--- OUTSIDE RECORDS SUMMARY | 2024-07-18 22:29 | External Medical Summary | Summary of Care ---
Author Name Unknown Organization [facility] Address [address] [facility] [place] [address] Phone [phone] Care Team Providers Care Sleeve Turner Name Role Phone Lia Meadows MD Primary Care Provider [phone] Reason for Visit * Reason Onset Date Comments Appointment 05/26/2024 Ir appt Encounter Details Date Type Department Care Team (Late st Contact Info) Description 05/26/2024 Telephone Gastroenterology, [facility] [address] [place] [address] Zabrina Marques DO [address] [place] [address] Appointment (Ir appt ) Allergies Active Allergy Reactions Criticality Noted Date [...] type 2, goal HbA1c < 7% ([facility]) Use as directed 4 times a day . Use up to 3-4 times a day as directed 100 Strip 5 11/22/19 22 Active BD Pen Needle Zora U/F 32G X 4 MM (Insulin Pen Needle)Indications :Type 2 diabetes mellitus with hemoglobin A1c goal of less than 7.0% ([facility]) Use once daily with [...] with ascites, unspecified hepatic cirrhosis type ([facility]) Take 1 Tablet by mouth in the morning. 180 Tablet 1 10/09/19 24 Active Metoprolol Succinate ER 100 MG Oral Tablet Extended Release 24 Hour (toPROL XL)Indications:Eugenie lothorax, right,Coronary artery disease involving [place] coronary artery of [place] heart without angina pectoris,S/P CABG x 3,HFrEF (heart failure with reduced ejection fraction) ([facility]),Ischemic cardiomyopathy,PAF (paroxysmal atrial fibrillation) ([facility]),HTN, goal below 140/90,Dyslipidemi a, goal LDL below 70,Cerebrovascular accident (CVA), unspecified mechanism ([facility]) TAKE 1 TABLET BY MOUTH EVERY DAY IN THE MORNING AND BEFORE BEDTIME 180 Tablet 3 10/15/19 24 Active Additional Information Patient taking differently: 50 mg Oral BID (.AM/PM), Reported on 05/23/2024 Aspirin Low Dose 81 MG Oral Tablet Delayed Release (aspirin enteric coated)Indications :Coronary artery disease involving [place] coronary artery of [place] heart without angina pectoris,Ischemic cardiomyopathy,PAF (paroxysmal atrial fibrillation) ([facility]) TAKE 1 TABLET BY MOUTH EVERY DAY IN THE MORNING 90 Tablet 3 10/15/19 24 Active Additional Information Patient taking differently: 81 mg Oral EVERY OTHER DAY, Indications: sunday,wednesdays,fridays, Reported on 10/16/2023 Blood Glucose Monitoring Suppl w/Device KitIndications: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, unspecified whether assistant terminal manager insulin use (HCC),Type 2 diabetes mellitus with hemoglobin A1c goal of less than 8.0% ([facility]),Diabetic peripheral neuropathy (HCC),Type 2 diabetes mellitus with stage 3a chronic kidney disease, unspecified whether assistant terminal manager insulin use ([facility]) Check sugar before meals, at [...] A1c goal of less than 8.0% ([facility]),Type 2 diabetes mellitus with stage 3a chronic kidney disease, unspecified whether alf insulin use ([facility]) INJECT 1 SYRINGE SUBCUTANEOUSLY ONCE A WEEK 6 mL 3 01/22/20 24 Active Additional Information Patient not taking.Reported on 05/23/2024 Atorvastatin Calcium 40 MG Oral Tablet (Lipitor)Indicatio ns:Hyperlipidemia LDL goal <100 TAKE 1 TABLET BY MOUTH EVERY DAY 90 Tablet 1 03/28/20 24 Active FreeStyle Frankie 14 Day [place] DeviceIndications: Type 2 diabetes mellitus with hemoglobin A1c goal of less than 8.0% ([facility]),Uncontrolled type 2 diabetes mellitus with hyperglycemia ([facility]),Current use of insulin ([facility]) Use as directed. 1 Each 04/04/20 24 Active FreeStyle Frankie 3 Sensor Use as directed every 14 days. 2 Each 04/07/20 24 Active FreeStyle Frankie 3 [place] Device Use as directed. 1 Each 1 [...] encounter Miscellaneous Notes * Telephone Encounter - Peg Lyons OSA - 05/26/2024 9:38 AM EST Pt was seen with dr marques here at hepatology and an paracentesis was ordered can you please call pt son to schedule the appt. documented in this encounter Plan of Treatment Upcoming Encounters Date Type Department Care Team (Late st Contact Info) Description 05/28/2024 2:00 PM EST Office Visit Cardiology, [address] [place] [address] Fallon Gifford CRNP [address] [place] [address] 06/09/2024 2:00 PM EST Office Visit [address]ematology/[address]cology [address] [phone] Mónica Cantu MD [address] [place] [phone] 06/09/2024 2:30 PM EST Immunization/Inje ction Hematology/Oncology Treatment, [place] [address] [facility], [place] [phone] [place], Chair 3 Hem Onc [place] [address] [address] [place], [place] [address] 06/11/2024 9:00 AM EST Office Visit Palliative Medicine [facility] [address] [facility], [place] [phone] Dorinda Lyn MD [address] [place] [address] [place] [address] 07/22/2024 9:40 AM EST Office Visit General Internal Medicine [facility] [address] [facility] [place], [place] [address] Lia Meadows MD [address] [facility] [place], [place] [address] 09/08/2024 3:20 PM EST Office Visit Hepatology, [facility] [address] [facility] [place] [address] Zabrina Marques DO [address] [place] [address] 10/07/2024 1:40 PM EDT Office Visit Nephrology, [place] [address] [address] [place], [place] [address] Breezy Meadows MD [address] [facility] [place], [place] [address] Health Maintenance Due Date Last Done Comments [...] Additional history exists CKD HGB USE SMARTSET 54239 05/23/202505/23, 05/23/2024, 04/23/2024, Additional history exists CKD PHOS USE SMARTSET 52960 05/23/202505/09, 04/07/2024, 11/19/2023, Additional history exists TSH [...] this encounter Medical Devices Implanted Type Area Solution Spec Device Identifier Shelf Expiration Date Model / Serial / Lot Suture Steel 6 B&S19 M654g - [id number] Implanted:Qty: 7 on 05/30/2021 by Uvaldo Fleming MD at [facility] N/A: Sternum VICENTE : [employer] 01/05/2026 M654G / / [id number] Lipiodol Injection - [id number] Implanted:Qty: 2 on 09/06/2021 at [facility] [employer] 10/06/2022 [id number] -2 / [id number] / [id number] Lipiodol Injection - [id number] Implanted:Qty: 1 on 09/06/2021 at [facility] [employer] [facility] 10/06/2022 [id number] -2 / [id number] / [id number] documented as of this encounter Advance Directives [...] Advance Directives occurred with: Patient Care Teams Sleeve Turner Relationship Specialty Start Date End Date Lia Meadows MD [address] [place] [address] [place], [place] [address] PCP - General Internal Medicine 04/06/21 documented as of this encounter
--- OUTSIDE RECORDS SUMMARY | 2024-07-18 22:29 | External Medical Summary ---
Author Name Unknown Address Unknown Organization K01:LABORATORY [facility] - [address] [place] [address] Laboratory Report Ordering Provider Test Date Status SLADEDOUGDUSTIN 05/23/2024 10:00:19 Final Please fax results to [phone]

Deficient: <20 ng/mL
Insufficient: 20-29 ng/mL
Recommended/Optimum:30-50 ng/mL

Vitamin D intoxication is rare. If suspicious of Vitamin D toxicity, evaluation of serum Calcium and PTH is recommended. Observation Date Value Abnormality Reference (Units ) Status 25-OH Vitamin D total 05/23/2024 10:00:19 27 >19 (ng/mL) Final Performing Location LABORATORY [facility] - [address] [place] [address]
--- OUTSIDE RECORDS SUMMARY | 2024-07-18 22:29 | External Medical Summary ---
Author Name Unknown Address Unknown Organization K01:LABORATORY [facility] [place] - [address] [place] [address] Laboratory Report Ordering Provider Test Date Status MAGUI JUNE 05/23/2024 10:05:04 Final Please fax results to [phone]

Normal: <30 mg/g creatinine
High: 30-300 mg/g creatinine
Very High: >300 mg/g creatinine
Nephrotic: >2200 mg/g creatinine Observation Date Value Abnormality Reference (Units ) Status Albumin, Urine 05/23/2024 10:05:04 3.00 (mg/dL) Final Creatinine, Urine 05/23/2024 10:05:04 196 (mg/dL) Final Albumin/Creatinine [Mass Ratio] in Urine 05/23/2024 10:05:04 15 <30 (mg/g Creat) Final Performing Location LABORATORY [facility] [place] - [address] [place] [address]
--- OUTSIDE RECORDS SUMMARY | 2024-07-18 22:29 | External Medical Summary ---
Author Name Unknown Address Unknown Organization K01:[facility] [address] [place] [address] Laboratory Report Ordering Provider Test Date Status SUKI FAIRBANKS 05/23/2024 10:00:19 Final Observation Date Value Abnormality Reference (Units ) Status Alpha-Fetoprotein 05/23/2024 10:00:19 1.8 0. 0-8.3 (ng/mL) Final Performing Location [facility] [address] [place] [address]
--- OUTSIDE RECORDS SUMMARY | 2024-07-18 22:29 | External Medical Summary | Summary of Care ---
Author Name Unknown Organization [facility] Address [address] [place] [address] Phone [phone] Care Team Providers Care Assisted Living Coordinator Name Role Phone Lia Meadows MD Primary Care Provider [phone] Reason for Referral * Evaluate & Treat - Unlimited Visits (Within 3 days (urgent)) - Authorized Specialty Diagnoses / Procedures Referred By Contact Referred To Contact Cardiovascular Medicine / Cardiology Diagnoses Hx of CABG Zabrina Ya DO [address] [place] [address] Phone: tel: fax: Referral ID Status Reason Start Date Expiration Date Visits Requested Visits Authorized [id number] Authorized Specialty Services Required [phone] [...] (HCC) Zabrina Ya DO [address] [place] [address] Phone: tel: fax: Referral ID Status Reason Start Date Expiration Date Visits Requested Visits Authorized [id number] Authorized Specialty Services Required [phone] [...] 05/23/2024 8:40 AM EST Office Visit Hepatology, [facility] [address] [place] [address] Zabrina Ya DO [address] [place] [address] Insomnia, unspecified type*; Malignant neoplasm of stomach, [...] DM type 2, goal HbA1c < 7% ([facility]) Use as directed 4 times a day . Use up to 3-4 times a day as directed 100 Strip 5 11/22/19 22 Active BD Pen Needle Zora U/F 32G X 4 MM (Insulin Pen Needle)Indications :Type 2 diabetes mellitus with hemoglobin A1c goal of less than 7.0% ([facility]) Use once daily with insulin [...] liver with ascites, unspecified hepatic cirrhosis type ([facility]) Take 1 Tablet by mouth in the morning. 180 Tablet 1 10/09/19 24 Active Metoprolol Succinate ER 100 MG Oral Tablet Extended Release 24 Hour (toPROL XL)Indications:Eugenie lothorax, right,Coronary artery disease involving [place] coronary artery of [place] heart without angina pectoris,S/P CABG x 3,HFrEF (heart failure with reduced ejection fraction) ([facility]),Ischemic cardiomyopathy,PAF (paroxysmal atrial fibrillation) ([facility]),HTN, goal below 140/90,Dyslipidemi a, goal LDL below 70,Cerebrovascular accident (CVA), unspecified mechanism ([facility]) TAKE 1 TABLET BY MOUTH EVERY DAY IN THE MORNING AND BEFORE BEDTIME 180 Tablet 3 10/15/19 24 Active Additional Information Patient taking differently: 50 mg Oral BID (.AM/PM), Reported on 05/23/2024 Aspirin Low Dose 81 MG Oral Tablet Delayed Release (aspirin enteric coated)Indications :Coronary artery disease involving [place] coronary artery of [place]imi[place] heart without angina pectoris,Ischemic cardiomyopathy,PAF (paroxysmal atrial fibrillation) ([facility]) TAKE 1 TABLET BY MOUTH EVERY DAY IN THE MORNING 90 Tablet 3 10/15/19 24 Active Additional Information Patient taking differently: 81 mg Oral EVERY OTHER DAY, Indications: sunday,wednesdays,fridays, Reported on 10/16/2023 Blood Glucose Monitoring Suppl w/Device KitIndications: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, unspecified whether residential insulin use ([facility]),Type 2 diabetes mellitus with hemoglobin A1c goal of less than 8.0% (HCC),Diabetic peripheral neuropathy (HCC),Type 2 diabetes mellitus with stage 3a chronic kidney disease, unspecified whether residential insulin use ([facility]) Check sugar before meals, at [...] hemoglobin A1c goal of less than 8.0% ([facility]),Type 2 diabetes mellitus with stage 3a chronic kidney disease, unspecified whether long wall mining machine tender insulin use ([facility]) INJECT 1 SYRINGE SUBCUTANEOUSLY ONCE A WEEK 6 mL 3 01/22/20 24 Active Additional Information Patient not taking.Reported on 05/23/2024 Atorvastatin Calcium 40 MG Oral Tablet (Lipitor)Indicatio ns:Hyperlipidemia LDL goal <100 TAKE 1 TABLET BY MOUTH EVERY DAY 90 Tablet 1 03/28/20 24 Active FreeStyle Frankie 14 Day Reynolds DeviceIndications: Type 2 diabetes mellitus with hemoglobin A1c goal of less than 8.0% ([facility]),Uncontrolled type 2 diabetes mellitus with hyperglycemia (HCC),Current use of insulin ([facility]) Use as directed. 1 Each 04/04/20 24 Active FreeStyle Frankie 3 Sensor Use as directed every 14 days. 2 Each 11 04/07/20 24 Active FreeStyle Frankie 3 Reynolds Device Use as directed. 1 Each 1 [...] in september 2021 after he presented to [facility] and found to have ascites. Patient states [...] lot has occurred. Had EGD 03/2024 at [facility] for melena found to have 2 smallmucosal [...] GRAFT performed by Uvaldo Fleming MD at [facility] CABG, ARTERY-VEIN, TWO 05/30/2021 CORONARY ARTERY BYPASS GRAFT ARTERIAL AND VENOUS 2 GRAFTS performed by Uvaldo Fleming MD at [place] [facility] CORONARY ANGIOGRAPHY W/LEFT HEART CATH Right 05/27/2021 CORONARY ANGIOGRAPHY W/LEFT HEART CATH performed by Jaime Munoz MD at [facility]ARDIAC [facility] EGD, FLEXIBLE, DIAGNOSTIC 06/27/2022 normal scope, 3-4 columns grade I varices , z-line found 40cm from [place]is[place] Class II / no specimens collected / ESOPHAGOGASTRODUODENOSCOPY (EGD), FLEXIBLE, TRANSORAL, DIAGNOSTIC performed by Evy Hylton MD at ENDOSCOPY [facility] EGD, FLEXIBLE, DIAGNOSTIC 07/16/2023 grade II esophageal varices/ESOPHAGOGASTRODUODENOSCOPY (EGD), FLEXIBLE, TRANSORAL, DIAGNOSTIC performed by Evy Hylton MD at [facility]COPY [facility] EGD, FLEXIBLE, DIAGNOSTIC N/A 10/23/2023 small esophageal varices, scarring from prior banding/portal hypertensive gastropathy/repeat 6 months/ESOPHAGOGASTRODUODENOSCOPY (EGD), FLEXIBLE, TRANSORAL, DIAGNOSTIC performed by Zabrina Ya DO at [facility] EGD, FLEXIBLE, DIAGNOSTIC N/A 09/13/2023 large esophageal varices, banded/portal hypertensive gastropathy/medium amount of food stomach/repeat 6-8 weeks/EGD/[facility] ENDO,VIDEO ASSIST HARVEST BRITTANY 05/30/2021 ENDOSCOPY VIDEO ASSISTED HARVEST VEIN performed by Uvaldo Fleming MD at [facility] INCISION OF HEART SAC FOR DRAINAGE N/A 11/10/2021 CREATION PERICARDIAL WINDOW performed by Uvaldo Fleming MD at OR [facility] IR ARTERIAL EMBOLIZATION 09/06/2021 IR CHEST TUBE 09/08/2021 THORACOSCOPY, DIAGNOSTIC, LUNGS N/A 08/01/2021 THORACOSCOPY DIAGNOSTIC WITHOUT BIOPSY performed by Uvaldo Fleming MD at [facility] No family history on file. Current Outpatient [...] Chest. (Patient not taking: Reported on 11/19/2023) Curious.comTouch Ultra Blue In Vitro Strip (Glucose Blood) [...] 6 mL 3 FreeStyle Frankie 14 Day Reynolds Device Use as directed. 1 Each 0 FreeStyle Frankie 3 Sensor Use as directed every 14 days. 2 Each 11 FreeStyle Frankie 3 Reynolds Device Use as directed. 1 Each 1 [...] neck. Recent Endoscopic Procedures: Reviewed EGD 03/2024 [facility]: Surgical pathology (03/24/2024) of the proximal body [...] cirrhosis in september after he presented to [facility] and found to have ascites. -Liver disease [...] sodium diet. Hehas a standing order at [facility]. Unable to increase diuretics further due to [...] tumor of stomach: Had EGD 03/2024 at [facility] for melena found to have 2 small [...] needed. I am updating paracentesis orders at [facility] for up to 10L with albumin to [...] check that they were not drawn at [facility]) Is patient on blood thinners?yes If yes- nursing please address prior to forwarding to scheduling Is patient Diabetic?yes If yes, please remind patient they will be NPO 4 hours prior to paracentesis and may need to consult with who manages their diabetic medications Patient scheduling preferences: [facility] * Lashae Srinivasan, RN - 05/23/2024 8:49 AM EST Follow up visit today. Son present for visit today. Last paracentesis was done on Sunday at [facility]. Son states that he had 5L removed. documented in this encounter Miscellaneous Notes * Addendum Note - Maria Ines Montes LPN - 05/23/2024 12:47 PM ESTAddended by: MARIA INES MONTES on: 05/23/2024 12:47 PM Modules accepted: Orders documented in this encounter Plan of Treatment Upcoming Encounters Date Type Department Care Team (Late st Contact Info) Description 05/28/2024 2:00 PM EST Office Visit Cardiology, [facility] [address] [place] [address] Fallon Gifford CRNP [address] [place] [address] 06/09/2024 2:00 PM EST Office Visit Hematology/Oncology [facility] [address] [place] [address] Mónica Cantu MD [address] [facility] [place] [phone] 06/09/2024 2:30 PM EST Immunization/Inje ction Hematology/Oncology Treatment, [place] [address] [place], [place] [phone] Nila, Chair 3 Hem Onc [facility] [address] [facility] [place] [address] 07/22/2024 9:40 AM EST Office Visit General Internal Medicine [facility] [address] [facility] [place] [address] Lia Meadows MD [address] [facility] [place] [address] 09/08/2024 3:20 PM EST Office Visit Hepatology, [facility] [address] [facility] [place] [address] Zabrina Ya DO [address] [place] [address] 10/07/2024 1:40 PM EDT Office Visit Nephrology, [address] [place] [address] Breezy Meadows MD [address] [facility] [place] [address] Pending Results Name Type Priority Associated Diagnoses [...] Albumin/Creatinine Ratio 08/23/2024 024, 07/26/2022, 05/05/2021 GFR 11/20/2024 05/23/2024, 1009/2023, 04/07/2024, Additional history exists Diabetic Eye Exam 01/24/2025 01/25/2024, , 11/09/2023, Additional history exists CKD PHOS USE SMARTSET 27810 04/07/202503/11, 11/19/2023, 09/27/2022, Additional history exists Depression Screening 04/21/2025 04/21/2024 CKD HGB USE SMARTSET 96687 05/23/202505/23, 05/23/2024, 04/23/2024, Additional history exists DTap/Tdap Vaccines (3 - [...] this encounter Medical Devices Implanted Type Area Secret Service Agent Device Identifier Shelf Expiration Date Model / Serial / Lot Suture Steel 6 B&S19 M654g - [id number] Implanted:Qty: 7 on 05/30/2021 by Uvaldo Fleming MD at [place] [facility] N/A: Sternum JNJ : [employer] 01/05/2026 M654G / / [id number] Lipiodol Injection - [id number] Implanted:Qty: 2 on 09/06/2021 at [facility] [employer] 10/06/2022 [id number] -2 / [id number] / [id number] Lipiodol Injection - [id number] Implanted:Qty: 1 on 09/06/2021 at [facility] [employer] 10/06/2022 [id number] -2 / [id number] / [id number] documented as of this encounter Visit Diagnoses [...] Advance Directives occurred with: Patient Care Teams Assisted Living Coordinator Relationship Specialty Start Date End Date Lia Meadows MD [address] [facility] [place] [address] PCP - General Internal Medicine 04/06/21 documented as of this encounter"
--- OUTSIDE RECORDS SUMMARY | 2024-07-18 22:29 | External Medical Summary ---
Author Name Unknown Address Unknown Organization [id number]:LABORATORY [facility] - [address] [place] [address] Laboratory Report Ordering Provider Test Date Status MAGUI WHITEHEAD 05/23/2024 10:05:04 Final Normal: <150 mg/ g creatinine
High: 150-500 mg/g creatinine
Very High: >500 mg/g creatinine
Nephrotic: >3000 mg/g creatinine Observation Date Value Abnormality Reference (Units ) Status Protein/Creatinine [Ratio] in Urine 05/23/2024 10:05:04 103 <150 (mg/g ) Final Protein, Urine 05/23/2024 10:05:04 20 (mg/dL) Final Creatinine, Urine 05/23/2024 10:05:04 194 (mg/dL) Final Performing Location LABORATORY [facility] - [address] [place] [address]
--- OUTSIDE RECORDS SUMMARY | 2024-07-18 22:29 | External Medical Summary ---
Author Name Unknown Address Unknown Organization [id number]:[facility] - [address] [place] [address] Laboratory Report Ordering Provider Test Date Status MAGUI JUNE 05/23/2024 10:00:19 Final Observation Date Value Abnormality Reference (Units ) Status Phosphate 05/23/2024 10:00:19 3.2 2.5-4.8 (m g/dL) Final Performing Location [facility] [address] [facility] [address]
[2024-07-19] MEDS: LEVOTHYROXINE SODIUM 88 MCG TABLET PO SCH (04:51)
--- OUTSIDE RECORDS SUMMARY | 2024-07-19 05:04 | External Medical Summary | Summary of Care ---
Author Name Unknown Organization [facility] Address [address] [place] [address] Phone [phone] Care Team Providers Care Vp Medical Name Role Phone Lia Meadows MD Primary Care Provider [phone] Reason for Visit * Reason Onset Date Comments Test Results Lab 07/18/2024 Encounter Details Date Type Department Care Team (Late st Contact Info) Description 07/18/2024 Telephone Hematology/Oncology Treatment, [place] [address] [place] [address] Aidan Batres MD [address] [place] [address] Test Results Lab Allergies Active Allergy Reactions Criticality Noted Date Comments Sulfa Antibiotics Edema Other Medium 02/01/2016 Other reaction(s): unknown Tramadol Nausea/vomiting 04/01/2021 documented as of this encounter (statuses as of 07/18/2024) Medications Vitamin D3 50 MCG (1999) Oral [...] ascites, unspecified hepatic cirrhosis type ([facility]) Take 1 Tablet by mouth in the morning. 180 Tablet 1 10/09/19 24 Active Metoprolol Succinate ER 100 MG Oral Tablet Extended Release 24 Hour (toPROL XL)Indications:Eugenie lothorax, right,Coronary artery disease involving [place] coronary artery of [place] heart without angina pectoris,S/P CABG x 3,HFrEF (heart failure with reduced ejection fraction) ([facility]),Ischemic cardiomyopathy,PAF (paroxysmal atrial fibrillation) ([facility]),HTN, goal below 140/90,Dyslipidemi a, goal LDL below 70,Cerebrovascular accident (CVA), unspecified mechanism ([facility]) TAKE 1 TABLET BY MOUTH EVERY DAY IN THE MORNING AND BEFORE BEDTIME 180 Tablet 3 10/15/19 24 Active Additional Information Patient taking differently: 50 mg Oral BID (.AM/PM), Reported on 05/28/2024 Aspirin Low Dose 81 MG Oral Tablet Delayed Release (aspirin enteric coated)Indications :Coronary artery disease involving [place] coronary artery of [place] heart without angina pectoris,Ischemic cardiomyopathy,PAF (paroxysmal atrial fibrillation) ([facility]) TAKE 1 TABLET BY MOUTH EVERY DAY IN THE MORNING 90 Tablet 3 10/15/19 24 Active Additional Information Patient taking differently: 81 mg Oral EVERY OTHER DAY, Indications: sunday,wednesdays,fridays, Reported on 05/28/2024 Blood Glucose Monitoring Suppl w/Device KitIndications: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, unspecified whether retirement insulin use ([facility]),Type 2 diabetes mellitus with hemoglobin A1c goal of less than 8.0% ([facility]),Diabetic peripheral neuropathy ([facility]),Type 2 diabetes mellitus with stage 3a chronic kidney disease, unspecified whether retirement insulin use ([facility]) Check sugar before meals, at night time and as needed for motoring sugar . Dx -E.11.9 and E11.65 1 Kit 11/13/19 24 Active Atorvastatin Calcium 40 MG Oral Tablet (Lipitor)Indicatio ns:Hyperlipidemia LDL goal <100 TAKE 1 TABLET BY MOUTH EVERY DAY 90 Tablet 1 03/28/20 24 Active FreeStyle Frankie 14 Day [place] DeviceIndications: Type 2 diabetes mellitus with hemoglobin A1c goal of less than 8.0% ([facility]),Uncontrolled type 2 diabetes mellitus with hyperglycemia (HCC),Current use of insulin (HCC) Use as directed. 1 Each 04/04/20 24 Active FreeStyle Frankie 3 Sensor Use as directed every 14 days. 2 Each 04/07/20 24 Active FreeStyle Frankie 3 [place] Device Use as directed. 1 Each 1 [...] ([facility]) INJECT 38 UNITS DAILY BEFORE BEDTIME 45 [...] as of this encounter (statuses as of 07/18/2024) Active Problems Problem Noted Date Diagnosed Date [...] as of this encounter (statuses as of 07/18/2024) Resolved Problems Problem Noted Date Diagnosed Date [...] as of this encounter (statuses as of 07/18/2024) Immunizations Name Administration Dates Next Due COVID-19 [...] Telephone Encounter - Kelsie Mcneill RN - 07/18/2024 1:19 PM EST Hgb 7.7 (was 10.2 on 05/23) Creat 4.1 (was 2.7 on 05/23) Per Dr Batres, patient to go to ER. Called and spoke to patients son, they will take him to [facility]. TT sent to [facility] ED bellows charger assembler role to make them aware. documented in this encounter Plan of Treatment Upcoming Encounters Date Type Department Care Team (Late st Contact Info) Description 07/22/2024 9:40 AM EST Office Visit General Internal Medicine [facility] [address] [facility] [place] [address] Lia Meadows MD [address] [facility] [place] [address] 09/08/2024 3:20 PM EST Office Visit Hepatology, [facility] [address] [facility] [place] [address] Zabrina Ya DO [address] [facility] [place] [address] 10/07/2024 1:40 PM EDT Office Visit Nephrology, [facility] [address] [facility] [place] [address] Breezy Meadows MD [address] [facility] [place] [address] 12/02/2024 10:00 AM EDT Office Visit Cardiology, [facility] [address] [facility] [place] [address] Fallon Gifford CRNP [address] [place] [address] [place] [address] Health Maintenance Due Date Last Done Comments Zoster Vaccines (1 of 2) 1996 Hepatitis B Vaccine (1 of 3 - Risk 3-dose series) 2006 Adult Wellness Visit 2012 COVID-19 Vaccine ( season) 2024 05/09/2021, 10/12/2020, 09/22/2020 Diabetic Foot Exam 06/13/2024 06/13/2023, 1 , 05/05/2021 HbA1c 11/20/2024 05/23/2024, 08/09, 03/02/2023, Additional history exists GFR 01/15/2025 07/18/2024, 05/09, 04/10/2024, Additional history exists Diabetic Eye Exam 01/24/2025 01/25/2024, , 11/09/2023, Additional history exists Depression Screening 04/21/2025 04/21/2024 Albumin/Creatinine Ratio 05/23/202505/23/ 024, 08/23/2023, 07/26/2022, Additional history exists CKD PHOS USE SMARTSET 26544 05/23/202505/09, 04/07/2024, 11/19/2023, Additional history exists TSH 05/23/2025 05/23/2024, 12/0 12/2022, 11/30/2022, Additional history exists CKD HGB USE SMARTSET 36420 07/18/202507/18, 07/18/2024, 05/23/2024, Additional history exists DTap/Tdap Vaccines (3 - [...] this encounter Medical Devices Implanted Type Area Sharepoint Solutions Architect Device Identifier Shelf Expiration Date Model / Serial / Lot Suture Steel 6 B&S19 M654g - [id number] Implanted:Qty: 7 on 05/30/2021 by Uvaldo Fleming MD at OR [facility] N/A: Sternum VICENTE : [employer] 01/05/2026 M654G / / [id number] Lipiodol Injection - [id number] Implanted:Qty: 2 on 09/06/2021 at [facility] [employer] 10/06/2022 [id number] -2 / [id number] / [id number] Lipiodol Injection - [id number] Implanted:Qty: 1 on 09/06/2021 at [facility] 10/06/2022 [id number] -2 / [id number] / [id number] documented as of this encounter Advance Directives [...] Advance Directives occurred with: Patient Care Teams Vp Medical Relationship Specialty Start Date End Date Lia Meadows MD [facility] [place] [address] PCP - General Internal Medicine 04/06/21 documented as of this encounter
--- OUTSIDE RECORDS SUMMARY | 2024-07-19 05:05 | External Medical Summary ---
Author Name Unknown Address Unknown Organization K01:LABORATORY [facility] - [address] [place] [address] Laboratory Report Ordering Provider Test Date Status TUNG ROBERT 07/18/2024 11:49:47 Final Observation Date Value Abnormality Reference (Units ) Status Iron 07/18/2024 11:49:47 22 Below low normal 45-176 (ug/dL) Final Iron-binding capacity 07/18/2024 11:49:47 330 250-425 (ug/dL) Final Transferrin Sat % 07/18/2024 11:49:47 7 Below low normal 15-55 (%) Final Performing Location LABORATORY [facility] - [address] [place] [address]
--- OUTSIDE RECORDS SUMMARY | 2024-07-19 05:05 | External Medical Summary | Summary of Care ---
Author Name Unknown Organization [facility] Address [address] [place] [address] Phone [phone] Care Team Providers Care Rubber Turner Name Role Phone Lia Meadows MD Primary Care Provider [phone] Reason for Visit * Reason Comments Outpatient Testing Encounter Details Date Type Department Care Team (Late st Contact Info) Description 07/18/2024 11:00 AM EST [facility] [place] [address] [place] [phone] [place], [address] Scenery [address] [place] [address] Arrived Allergies Active Allergy Reactions Criticality Noted Date [...] (toPROL XL)Indications:Eugenie lothorax, right,Coronary artery disease involving [place] coronary artery of [place] heart without angina pectoris,S/P CABG x 3,HFrEF [...] (aspirin enteric coated)Indications :Coronary artery disease involving [place] coronary artery of [place] heart without angina pectoris,Ischemic cardiomyopathy,PAF (paroxysmal atrial fibrillation) ([facility]) TAKE 1 TABLET BY MOUTH EVERY DAY IN THE MORNING 90 Tablet 3 10/15/19 24 Active Additional Information Patient taking differently: 81 mg Oral EVERY OTHER DAY, Indications: sunday,wednesdays,fridays, Reported on 05/28/2024 Blood Glucose Monitoring Suppl w/Device KitIndications: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, unspecified whether fdc insulin use ([facility]),Type 2 diabetes mellitus with hemoglobin A1c goal of less than 8.0% ([facility]),Diabetic peripheral neuropathy ([facility]),Type 2 diabetes mellitus with stage 3a chronic kidney disease, unspecified whether terminal block assembler insulin use ([facility]) Check sugar before meals, at night time and as needed for motoring sugar . Dx -E.11.9 and E11.65 1 Kit 11/13/19 24 Active Atorvastatin Calcium 40 MG Oral Tablet (Lipitor)Indicatio ns:Hyperlipidemia LDL goal <100 TAKE 1 TABLET BY MOUTH EVERY DAY 90 Tablet 1 03/28/20 24 Active FreeStyle Frankie 14 Day Mobile DeviceIndications: Type 2 diabetes mellitus with hemoglobin A1c goal of less than 8.0% ([facility]),Uncontrolled type 2 diabetes mellitus with hyperglycemia (HCC),Current use of insulin (HCC) Use as directed. 1 Each 04/04/20 24 Active FreeStyle Frankie 3 Sensor Use as directed every 14 days. 2 Each 04/07/20 24 Active FreeStyle Frankie 3 Mobile Device Use as directed. 1 Each 1 04/07/20 24 Active Lactulose 10 GM/15ML Oral Solution (Constulose)Indica tions:Neuroendocri ne carcinoma of stomach (HCC) Take 15 mL by mouth in the morning and 15 mL before bedtime. 946 mL 2 05/01/20 24 Active Insulin Glargine Solostar 100 UNIT/ML Subcutaneous Solution Pen-injector (Lantus SoloStar)Indicatio ns:DM type 2, goal HbA1c < 7% ([facility]) INJECT 38 UNITS DAILY BEFORE [...] AM EST Office Visit General Internal Medicine [facility] [address] [place] [address] Lia Meadows MD [address] [facility] [place] [address] 09/08/2024 3:20 PM EST Office Visit Hepatology, [facility] [address] [place] [address] Zabrina Ya DO [address] [place] [address] 10/07/2024 1:40 PM EDT Office Visit Nephrology, [facility] [place] [address] [facility] [place] [address] Breezy Meadows MD 200 [facility] [place] [address] 12/02/2024 10:00 AM EDT Office Visit Cardiology, [facility] [address] [facility] [place] [address] Fallon Gifofrd CRNP [address] [facility] [place] [address] Health Maintenance [...] Additional history exists CKD HGB USE SMARTSET 05107 05/23/202505/23, 05/23/2024, 04/23/2024, Additional history exists CKD PHOS USE SMARTSET 46822 05/23/202505/09, 04/07/2024, 11/19/2023, Additional history exists TSH 05/23/2025 05/23/2024, 12/12/2022, 11/30/2022, Additional history exists DTap/Tdap Vaccines (3 [...] this encounter Medical Devices Implanted Type Area Catalogue Clerk Device Identifier Shelf Expiration Date Model / Serial / Lot Suture Steel 6 B&S19 M654g - [id number] Implanted:Qty: 7 on 05/30/2021 by Uvaldo Fleming [place] [facility] [place]A: Sternum JN[place] : [employer] 01/05/2026 M654G / / [id number] Lipiodol Injection - [id number] Implanted:Qty: 2 on 09/06/2021 at [facility] [employer] 10/06/2022 [id number] -2 / [id number] / [id number] Lipiodol Injection - [id number] Implanted:Qty: 1 on 09/06/20[facility] [employer] 10/06/2022 [id number] -2 / [id number] / [id number] documented as of this encounter Advance Directives [...] 5:21 PM 08/20/2021 5:05 PM This order r eflects the patients [...] Advance Directives occurred with: Patient Care Teams Rubber Turner Relationship Specialty Start Date End Date Lia Meadows MD [address] [place] [address] PCP - General Internal Medicine 04/06/21 documented as of this encounter
--- OUTSIDE RECORDS SUMMARY | 2024-07-19 05:05 | External Medical Summary ---
Author Name Unknown Address Unknown Organization [id number]:LABORATORY [facility] [place] - [address] [place] [address] Laboratory Report Ordering Provider Test Date Status TUNG ROBERT 07/18/2024 11:49:47 Final Observation Date Value Abnormality Reference (Units ) Status Vitamin B12 07/18/2024 11:49:47 104 275-8790 (pg/mL) Final Performing Location LABORATORY [facility] - [address] [place] [address]
--- OUTSIDE RECORDS SUMMARY | 2024-07-19 05:05 | External Medical Summary ---
Author Name Unknown Address Unknown Organization [id number]:[facility] [place] [address] [place] [address] Laboratory Report Ordering Provider Test Date Status TUNG ROBERT 07/18/2024 11:49:47 Final Observation Date Value Abnormality Reference (Units ) Status Folic Acid 07/18/2024 11:49:47 10.4 >4.5 (ng/ mL) Final Performing Location [facility] [place] [address] [place] [address]
--- OUTSIDE RECORDS SUMMARY | 2024-07-19 05:05 | External Medical Summary | Summary of Care ---
Author Name Unknown Organization [facility] Address [address] [place] [address] Phone [phone] Care Team Providers Care Block Cableman Name Role Phone Lia Meadows MD Primary Care Provider [phone] Reason for Visit * Reason Comments Follow Up Transfer from Dr. Gordon/ Return Encounter Details Date Type Department Care Team (Latest Contact Info) Description 07/18/2024 12:00 PM EST Office Visit Hematology/Oncology [facility] [place] [address] [facility] [place] [phone] Aidan Batres MD [address] [facility] [place] [address] Neuroendocrine carcinoma of stomach (HCC)*; Nutritional deficiency; Anemia, unspecified type; Nutritional anemia, unspecified Allergies Active Allergy Reactions Criticality Noted Date [...] ascites, unspecified hepatic cirrhosis type ([facility]) Take 1 Tablet by mouth in the morning. 180 Tablet 1 10/09/19 24 Active Metoprolol Succinate ER 100 MG Oral Tablet Extended Release 24 Hour (toPROL XL)Indications:Eugenie lothorax, right,Coronary artery disease involving kake coronary artery of kake heart without angina pectoris,S/P CABG x 3,HFrEF (heart failure with reduced ejection fraction) ([facility]),Ischemic cardiomyopathy,PAF (paroxysmal atrial fibrillation) ([facility]),HTN, goal below 140/90,Dyslipidemi a, goal LDL below 70,Cerebrovascular accident (CVA), unspecified mechanism ([facility]) TAKE 1 TABLET BY MOUTH EVERY DAY IN THE MORNING AND BEFORE BEDTIME 180 Tablet 3 10/15/19 24 Active Additional Information Patient taking differently: 50 mg Oral BID (.AM/PM), Reported on 05/28/2024 Aspirin Low Dose 81 MG Oral Tablet Delayed Release (aspirin enteric coated)Indications :Coronary artery disease involving kake coronary artery of kake heart without angina pectoris,Ischemic cardiomyopathy,PAF (paroxysmal atrial fibrillation) ([facility]) TAKE 1 TABLET BY MOUTH EVERY DAY IN THE MORNING 90 Tablet 3 10/15/19 24 Active Additional Information Patient taking differently: 81 mg Oral EVERY OTHER DAY, Indications: sunday,wednesdays,fridays, Reported on 05/28/2024 Blood Glucose Monitoring Suppl w/Device KitIndications: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, unspecified whether alf insulin use ([facility]),Type 2 diabetes mellitus with hemoglobin A1c goal of less than 8.0% ([facility]),Diabetic peripheral neuropathy ([facility]),Type 2 diabetes mellitus with stage 3a chronic kidney disease, unspecified whether alf insulin use ([facility]) Check sugar before meals, at night time and as needed for motoring sugar . Dx -E.11.9 and E11.65 1 Kit 11/13/19 24 Active Atorvastatin Calcium 40 MG Oral Tablet (Lipitor)Indicatio ns:Hyperlipidemia LDL goal <100 TAKE 1 TABLET BY MOUTH EVERY DAY 90 Tablet 1 03/28/20 24 Active FreeStyle Frankie 14 Day [place] DeviceIndications: Type 2 diabetes mellitus with hemoglobin A1c goal of less than 8.0% ([facility]),Uncontrolled type 2 diabetes mellitus with hyperglycemia (HCC),Current use of insulin (HCC) Use as directed. 1 Each 04/04/20 24 Active FreeStyle Frankie 3 Sensor Use as directed every 14 days. 2 Each 11 04/07/20 24 Active FreeStyle Frankie 3 [place] Device Use as directed. 1 Each 1 04/07/20 24 Active Lactulose 10 GM/15ML Oral Solution (Constulose)Indica tions:Neuroendocri ne carcinoma of stomach (HCC) Take 15 mL by mouth in the morning and 15 mL before bedtime. 946 mL 2 05/01/20 24 Active Insulin Glargine Solostar 100 UNIT/ML Subcutaneous Solution Pen-injector (Lantus SoloStar)Indicatio ns:DM type 2, goal HbA1c < 7% ([facility]) INJECT 38 UNITS DAILY BEFORE BEDTIME 45 mL 3 05/04/20 24 Active Spironolactone 50 MG Oral Tablet (Aldactone)Indicat ions:after breakfast Take 1 Tablet by mouth daily. 90 Tablet 1 05/16/20 24 Active traZODone HCl 50 MG Oral Tablet (Desyrel)Indicatio ns:Insomnia, unspecified type,Malignant neoplasm of stomach, unspecified location ([facility]) Take 1 Tablet by mouth at bedtime. [...] Sign Reading Time Taken Comments Blood Pressure 90/56 07/18/2024 11:26 AM EST Pulse 83 07/18/2024 11:26 AM EST Temperature 36.2 C (97.2 F) 07/18/2024 11:[address] Respiratory Rate - - Oxygen Saturation 98% 07/18/2024 11:26 AM EST Inhaled Oxygen Concentration - - Weight - - Height - - Body Mass Index - - documented in this encounter Functional Status * [...] documented in this encounter Progress Notes * Aidan Batres MD - 07/18/2024 12:00 PM EST Hematology/[facility] [place] [address] [place], [place] [address] NAME: Norris Francois :1945 78-year-old male, DIAGNOSIS: Gastric neuroendocrine tumor, Cirrhosis of liver with portal hypertension, ascites Chronic renal insufficiency. Former patient of Dr. Cantu CURRENT TREATMENT: He received 2 treatment with lanreotide, last treatment was received on 06/09/2024. Because of comorbid conditions, would like to discontinue current treatment with lanreotide. DIAGNOSTIC WORKUP: He has underlying cirrhosis of liver and portal hypertension, esophageal varices. CT scan of the abdomen and pelvis on 03/23/2024: - Thickening of the wall of the descending colon, sigmoid colon rectum. - Diverticulosis - Ascites present - Hepatosplenomegaly. Biopsy from the stomach --> Gastric neuroendocrine tumor, grade 2. Ki-67 --> 15%. (03/24/2024) PET-CT scan (NETSPOT) done on 04/23/2024: - No FDG avid disease noted - 70 appearance of the liver with moderate ascites. - Calcified granuloma in the liver and spleen. S/P cholecystectomy noted. He received lanreotide x2 (05/12/2024 and 06/09/2024. ) INTERVAL HISTORY: He has come the clinic for the follow-up, accompanied by his son in the office, he came to clinic in the wheelchair. Overall feeling quite weak and tired, not much ambulating, ECOG PS 4, abdominal distention present,he has ascites, has underlying liver cirrhosis, no bleeding episode, last hospitalization was in March 2024. Leg edema improved to some extent. No fever. Not much eating, does complain of abdominal pain, on the pain scale, around 7 on 0 to 10 pain scale, recently he had a fall, some injury to th e left upper extremity. With some local bruising. Past Medical History: Diagnosis Date Diabetic peripheral neuropathy (HCC) 03/01/2023 DM type 2, goal HbA1c < 7% (HCC) 1994 HTN, goal below 140/90 Hyperlipidemia LDL goal <100 Hypothyroid Rotator cuff tear Past Surgical History: Procedure Laterality Date CABG, ARTERIAL, SINGLE N/A 05/30/2021 CORONARY ARTERY BYPASS GRAFT USING ARTERY 1 GRAFT performed by Uvaldo Fleming MD at [facility] CABG, ARTERY-VEIN, TWO 05/30/2021 CORONARY ARTERY BYPASS GRAFT ARTERIAL AND VENOUS 2 GRAFTS performed [place] Uvaldo Fleming MD [place] [facility] [place]ONARY ANGIOGRAPHY W/LEFT HEART CATH Right 05/27/2021 CORONARY ANGIOGRAPHY W/LEFT HEART CATH performed by Jaime Munoz MD at [facility] EGD, FLEXIBLE, DIAGNOSTIC 06/27/2022 normal scope, 3-4 columns grade I varices , z-line found 40cm from incisors [place] Class II / no specimens collected / ESOPHAGOGASTRODUODENOSCOPY (EGD), FLEXIBLE, TRANSORAL, DIAGNOSTIC performed by Evy Hylton MD at ENDOSCOPY [facility] EGD, FLEXIBLE, DIAGNOSTIC 07/16/2023 grade II esophageal varices/ESOPHAGOGASTRODUODENOSCOPY (EGD), FLEXIBLE, TRANSORAL, DIAGNOSTIC performed by Evy Hylton MD at [facility]OSCOPY [facility] EGD, FLEXIBLE, DIAGNOSTIC N/A 10/23/2023 small esophageal varices, scarring from prior banding/portal hypertensive gastropathy/repeat 6 months/ESOPHAGOGASTRODUODENOSCOPY (EGD), FLEXIBLE, TRANSORAL, DIAGNOSTIC performed by Zabrina Ya DO at ENDOSCOPY [facility] EGD, FLEXIBLE, DIAGNOSTIC N/A 09/13/2023 large esophageal varices, banded/portal hypertensive gastropathy/medium amount of food stomach/repeat 6-8 weeks/EGD/MN ENDO,VIDEO ASSIST HARVEST BRITTANY 05/30/2021 ENDOSCOPY VIDEO ASSISTED HARVEST VEIN performed by Uvaldo Fleming MD at [place] [facility] INCISION OF HEART SAC FOR DRAINAGE N/A 11/10/2021 CREATION PERICARDIAL WINDOW performed by Uvaldo Fleming MD at [place] [facility] IR ARTERIAL EMBOLIZATION 09/06/2021 IR CHEST TUBE 09/08/2021 THORACOSCOPY, DIAGNOSTIC, LUNGS N/A 08/01/2021 THORACOSCOPY DIAGNOSTIC WITHOUT BIOPSY performed by Uvaldo Fleming MD at [place] [facility] Current Outpatient Medications Medication Sig Dispense Refill [...] a day as directed 100 Strip 5 Eliquis 5 MG Oral Tablet (Apixaban) [...] Dx -E.11.9 and E11.65 1 Kit 0 Atorvastatin Calcium 40 MG Oral Tablet (Lipitor) TAKE 1 TABLET BY MOUTH EVERY DAY 90 Tablet 1 FreeStyle Frankie 14 Day [place] Device Use as directed. 1 Each 0 FreeStyle Frankie 3 Sensor Use as directed every 14 days. 2 Each 11 FreeStyle Frankie 3 [place] Device Use as directed. 1 Each 1 [...] as needed for Nausea. 30 Tablet 5 BD Pen Needle Zora U/F 32G X 4 MM (Insulin Pen Needle) Use once daily with insulin 100 Each 5 Levothyroxine Sodium 88 MCG Oral Tablet (Levoxyl) TAKE 1 TABLET BY MOUTH IN THE MORNING AT LEAST 30MINUTES PRIOR TO BREAKFAST AND OTHER MEDS 90 Tablet 1 No current facility-administered medications for this visit. No family history on file. Social History Socioeconomic History Marital status: Spouse name: Not on file Number of children: Not on file Years of education: Not on file Highest education level: Not on file Occupational History Not on file Tobacco Use Smoking status: Former Current packs/day: 0.00 Average packs/day: 2.0 packs/day for 15.0 years (30.0 ttl pk-yrs) Types: Cigarettes Start date: 1969 Quit date: 1984 Years since quittin.0 Smokeless tobacco: Never Vaping Use Vaping status: Never Used Substance and Sexual Activity Alcohol use: Not Currently Comment: quit in mid 1989' Drug use: Never Sexual activity: Not on file Other Topics Concern Not on file Social History Narrative Not on file Social Needs Financial Resource Strain: Not on file Food Insecurity: No Food Insecurity (11/30/2022) Hunger Vital Sign Worried About Running Out of Food in the Last Year: Never true Ran Out of Food in the Last Year: Never true Transportation Needs: Not on file Social Connections: Not on file Housing Stability: Not on file On exam: Examination done in the wheelchair. BP 90/56 (BP Site: Right Arm, BP Position: Sitting, BP Cuff Size: Regular) | Pulse 83 | Temp 36.2 C (97.2 F) (Tympanic) | SpO2 98% Constitutional: Patient is alert, cooperative and oriented x 3. Thin built man, Patient is in no acute distress. HEENT:No icterus, pylori present, Neck: Supple and without lymphadenopathy or masses. No JVD. No Palpable supraclavicular lymph nodes. Lungs: Clear to auscultation. Bilateral symmetric air entry. No wheezing or rhonchi. Cardiovascular: Normal heart sounds, no murmurs.Regular rate and rhythm. Abdomen: soft, nontender, no hepatomegaly, no splenomegaly. Bowel sounds are normal. Neurological: No gross focal neurological deficit; he is not ambulating Extremities: No finger clubbing, No cyanosis. No leg edema. Skin:: No skin rash. LABS: Blood workup done on 05/23/2024: - BUN/Creat: 40/2.7, normal LFT other than alkaline phosphatase of 152 - Calcium 9.2 - WBC 6600, H&H of 10.2/33, MCV 80, platelet count of 202,000. - Urine for Protein/Creatinine ratio --> 103 - Chromogranin A level --> 476 (04/10/2024) - Absolute reticulocyte count --> 94,700. Anemia workup done on 04/10/2024: - EPO level --> 74.6 - Serum iron: 30, TIBC 327, iron saturation 9% - Ferritin level --> 21 - Haptoglobin --> 33 - Methylmalonic acid --> 858 - Peritoneal fluid cytology --> negative for malignancy (05/20/2024). - AFP --> 1.8 (05/23/2024) Blood workup done on 07/18/2024: -WBC 4500, Hemoglobin and hematocrit - 7.7/26, MCV 81, Platelet count of 352323 -BUN/Creat: 66/4.1, normal LFT, bilirubin level 1.2. -Vitamin B12, folic acid, Ferritin, iron profile, PT INR --> pending. IMAGING: Bilateral lower extremity Doppler evaluation on 04/22/2024 --> Negative for DVT. ASSESSMENT AND PLAN: 78-year-old male, who has underlying cirrhosis of liver, portal hypertension, esophageal varices, ascites, chronic renal insufficiency, had a endoscopic evaluation, found to have a gastric neuroendocrine tumor, PET-CT scan is negative for any sites of disease, he received 2 dosage of lanreotide, last treatment was in early June 2024. Significant declining performed status, blood pressure on lower side, reviewed blood workup done today, hemoglobin dropped down to 7.7 g/dL, creatinine level increased from 4.2 mg/dL. Overall he is not doing quite well, we talked about hospice that can be considered but looking at his drop in the hemoglobin level and worsening kidney function, would like to send him to [facility] ER and he can have a evaluation over there, Palliative Care consult and consider for hospice upon discharge. Would like to discontinue lanreotide. Will see him in the clinic as needed. Dr. Aidan Batres Hem/Onc (This note was completed using the dictation program Fluency Direct. As such, there may be misspellings word substitutions, or other variations that should not change the essence of the clinical content of this encounter note. If there is need for further clarification, please direct questions to the provider listed above.) documented in this encounter Nursing Notes * Gauri Jenkins, [facility] - 07/18/2024 11:28 AM EST Patient identifed by name and birthdate Do you have any concerns about pain management for today's visit? No Living Will or Advance Directive for Health Care as noted on the problem list. [facility] is a way you can talk to your provider on line through e-mail. Would you like to sign up? I can activate it for you? ALREADY ACTIVE Filed Vitals: 07/18/24 1126 BP: 90/56 Pulse: 83 Temp: 36.2 C (97.2 F) TempSrc: Tympanic SpO2: 98% Patient was instructed to not get up on the exam table/exam chair until directed and assisted by their provider; patient is to remain seated in the chair/ wheelchair/ exam table/ exam chair for fall prevention and safety reasons. Patient is aware to have assistance to step down off exam table/exam chair with personnel. Patient voiced full comprehension of instructions. Patient states that he fell last night and is short of breathe and dizzy. documented in this encounter Plan of Treatment Upcoming Encounters Date Type Department Care Team (Late st Contact Info) Description 07/22/2024 9:40 AM EST Office Visit General Internal Medicine [facility] [address] [facility] [place] [phone] Lia Meadows MD [address] [facility] [place] [address] 09/08/2024 3:20 PM EST Office Visit Hepatology, [facility] [address] [place] [address] Zabrina Ya DO [address] [facility] [place] [address] 10/07/2024 1:40 PM EDT Office Visit Nephrology, [facility] [address] [facility] [place] [address] Breezy Meadows MD [address] [facility] [place] [address] 12/02/2024 10:00 AM EDT Office Visit Cardiology, [facility] [address] [facility] [place] [address] Fallon Gifford CRNP [address] [place] [address] Pending Results Name Type Priority Associated Diagnoses Date /Time FERRITIN Lab Routine Neuroendocrine carcinoma of stomach (HCC) Nutritional deficiency Anemia, unspecified type Nutritional anemia, unspecified 07/18/2024 11:49 AM EST IRON SCREEN, INCLUDING TIBC Lab Routine Neuroendocrine carcinoma of stomach (HCC) Nutritional deficiency Anemia, unspecified type Nutritional anemia, unspecified 07/18/2024 11:49 AM EST FOLIC ACID Lab Routine Neuroendocrine carcinoma of stomach (HCC) Nutritional deficiency Anemia, unspecified type Nutritional anemia, unspecified 07/18/2024 11:49 AM EST VITAMIN B12 Lab Routine Neuroendocrine carcinoma of stomach (HCC) Nutritional deficiency Anemia, unspecified type Nutritional anemia, unspecified 07/18/2024 11:49 AM EST Health Maintenance Due Date Last [...] Additional history exists CKD PHOS USE SMARTSET 01069 05/23/202505/09, 04/07/2024, 11/19/2023, Additional history exists TSH 05/23/2025 05/23/2024, 12/12/2022, 11/30/2022, Additional history exists CKD HGB USE SMARTSET 65184 07/18/202507/18, 07/18/2024, 05/23/2024, Additional history exists DTap/Tdap [...] this encounter Medical Devices Implanted Type Area Director Of Acquisitions Device Identifier Shelf Expiration Date Model / Serial / Lot Suture Steel 6 B&S19 M654g - [id number] Implanted:Qty: 7 on 05/30/2021 by Uvaldo Fleming MD at [facility] N/A: Sternum JNJ : [employer] 01/05/2026 M654G / / [id number] Lipiodol Injection - [id number] Implanted:Qty: 2 on 09/06/2021 at [facility] [employer] 10/06/2022 [id number] -2 / [id number] / [id number] Lipiodol Injection - [id number] Implanted:Qty: 1 on [facility] [employer] 10/06/2022 [id number] -[id number] / [id number] / [id number] documented as of this encounter Procedures Procedure Name Priority Date/Time Associated Diagnosis Comments DIFFERENTIAL, AUTOMATED STAT 07/18/2024 11:49 AM EST Neuroendocrine carcinoma of stomach (HCC) Nutritional deficiency Anemia, unspecified type Nutritional anemia, unspecified COMPREHENSIVE METABOLIC PANEL STAT 07/18/2024 11:49 AM EST Neuroendocrine carcinoma of stomach (HCC) Nutritional deficiency Anemia, unspecified type Nutritional anemia, unspecified CBC STAT 07/18/2024 11:49 AM EST Neuroendocrine carcinoma of stomach (HCC) Nutritional deficiency Anemia, unspecified type Nutritional anemia, unspecified PT INR Routine 07/18/2024 11:49 AM EST Neuroendocrine carcinoma of stomach (HCC) Nutritional deficiency Anemia, unspecified type Nutritional anemia, unspecified CBC STAT 07/18/2024 11:49 AM EST Neuroendocrine carcinoma of stomach (HCC) Nutritional deficiency Anemia, unspecified type Nutritional anemia, unspecified DIFFERENTIAL, TECHNOLOGIST REVIEW Routine 07/18/2024 11:49 AM EST Neuroendocrine carcinoma of stomach (HCC) Nutritional deficiency Anemia, unspecified type Nutritional anemia, unspecified documented in this encounter Results * (ABNORMAL) DIFFERENTIAL, TECHNOLOGIST REVIEW (07/18/2024 11:49 AM EST) nRBCs 07/18/2024 12:46 PM EST [facility]02 Acanthocytes Moderate(A ) None Seen 07/18/2024 12:46 PM EST [facility]02 Elliptocytes Moderate(A ) None Seen 07/18/2024 12:46 PM EST [facility] 56-02 Schistocytes Few(A) None Seen 07/18/2024 12:46 PM EST [facility] 56-02 Blood Venous blood specimen / Unknown Venipuncture / Unknown 07/18/2024 11:49 AM EST 07/18/2024 11:49 AM EST Aidan Batres MD LAB BLOOD ORDERABLES Final Res ult [facility] 56-[address] [place] [address] * (ABNORMAL) DIFFERENTIAL, AUTOMATED (07/18/2024 11:49 AM EST) WBC 4.58 4.00 - 10.80 K/uL 07/18/2024 12:46 PM EST [facility] 56-02 Neutrophils % 67.0 40.0 - 75.0 % 07/18/2024 12:46 PM EST [facility] 56-02 Lymphocytes % 10.0(L) 18.0 - 42.0 % 07/18/2024 12:46 PM EST [facility] 56-02 Monocytes % 22.3(H) 1.0 - 11.0 % 07/18/2024 12:46 PM EST [facility] 56-02 Eosinophils % 0.0 0.0 - 6.0 % 07/18/2024 12:46 PM EST [facility] 56-02 Basophils % 0.7 0.0 - 2.0 % 07/18/2024 12:46 PM [facility] 56 Absolute Neutrophils 3.07 1.80 - 7.70 K/uL 07/18/2024 12:46 PM EST [facility] 56- Absolute Lymphocytes 0.46(L) 1.00 - 4.80 K/ul 07/18/2024 12:46 PM EST [facility] 56 Absolute Monocytes 1.02 0.00 - 1.10 K/uL 07/18/2024 12:46 PM EST [facility] 56 Absolute Eosinophils 0.00 0.00 - 0.70 K/uL 07/18/2024 12:46 PM [facility] 56 Absolute Basophils 0.03 0.00 - 0.20 K/uL 07/18/2024 12:46 PM [facility] 56 Blood Venous blood specimen / Unknown Venipuncture / Unknown 07/18/2024 11:49 AM EST 07/18/2024 11:49 AM EST us Aidan Batres MD LAB BLOOD ORDERABLES Final Res ult [facility] [address] [place] [address] * (ABNORMAL) CBC (07/18/2024 11:49 AM EST) WBC 4.58 4.00 - 10.80 K/uL 07/18/2024 12:46 PM [facility] 56 RBC 3.21 4.50 - 5.25 M/uL 07/18/2024 12:46 PM [facility] 56 HGB 7.7(L) 14.0 - 16.8 g/dL 07/18/2024 12:46 PM [facility] 56- HCT 26.1(L) 40.0 - 48.4 % 07/18/2024 12:46 PM [facility] 56 MCV 81.3 82.0 - 99.5 fL 07/18/2024 12:46 PM [facility] 56 MCH 24.0 27.0 - 34.0 pg 07/18/2024 12:46 PM [facility] 56 MCHC 29.5 32.0 - 36.0 g/dL 07/18/2024 12:46 PM EST [facility] 56 RDW 19.2 11.5 - 15.5 % 07/18/2024 12:46 PM EST [facility] 5602 PLT 161 140 - 400 K/uL 07/18/2024 12:46 PM EST [facility] 56 MPV 10.7 6.6 - 11.1 fL 07/18/2024 12:46 PM [facility] 5602 Blood Venous blood specimen / Unknown Venipuncture / Unknown 07/18/2024 11:49 AM EST 07/18/2024 11:49 AM EST Aidan Batres MD LAB BLOOD ORDERABLES Final Res ult Performing Organization Address [facility] Co de Phone Number [place] [address] [address] [place] [address] * (ABNORMAL) PT INR (07/18/2024 11:49 AM EST) Prothrombin Time 32.0(H) 11.6 - 15.2 seconds 07/18/2024 12:55 PM EST [address] INR 3.1(H) 0.8 - 1.2 07/18/2024 12:55 PM EST [facility] 56 Blood Venous blood specimen / Unknown Venipuncture / Unknown 07/18/2024 11:49 AM EST 07/18/2024 11:49 AM EST Narrative [facility] 56-02 - 07/18/2024 12:55 PM EST Warfarin Therapy INR: 2.0-3.0 conventional anticoagulation INR: 2.5-3.5 high intensity anticoagulation us Aidan Batres MD LAB BLOOD ORDERABLES Final Res ult [facility] [address] [place] [address] * (ABNORMAL) COMPREHENSIVE METABOLIC PANEL (07/18/2024 11:49 AM EST) BUN 66(H) 6 - 20 mg/dL 07/18/2024 12:55 PM [facility] 5602 CREATININE 4.1(H) 0.6 - 1.2 mg/dL 07/18/2024 12:55 PM [facility] 5602 EGFR 14(L) >=60 mL/min 07/18/2024 12:55 PM [facility] 56 Comment:eGFR is calculated b ased on the CKD-EPI 2020 equation. SODIUM 136 135 - 146 mmol/L 07/18/2024 12:55 PM [facility] 56-02 POTASSIUM 4.4 3.5 - 5.1 mmol/L 07/18/2024 12:55 PM [facility] 56 CHLORIDE 107 98 - 107 mmol/L 07/18/2024 12:55 PM [facility] 56 CO2 14(L) 22 - 32 mmol/L 07/18/2024 12:55 PM [facility] 56 ANION GAP 15 7 - 15 mmol/L 07/18/2024 12:55 PM [facility] 56 GLUCOSE 72 70 - 120 mg/dL 07/18/2024 12:55 PM [facility] 56 Albumin 3.0(L) 3.8 - 5.0 g/dL 07/18/2024 12:55 PM [facility] 56 AST 26 10 - 50 U/L 07/18/2024 12:55 PM [facility] 56 Alkaline Phosphatase 130 35 - 130 U/L 07/18/2024 12:55 PM [facility] 56- Bilirubin, Total 1.2 <=1.2 mg/dL 07/18/2024 12:55 PM [facility] 56- CALCIUM 9.2 8.4 - 10.2 mg/dL 07/18/2024 12:55 PM [facility] 56-02 Protein 6.0 6.0 - 8.3 g/dL 07/18/2024 12:55 PM [facility] 56- ALT 13 10 - 50 U/L 07/18/2024 12:55 PM [facility] 56- Blood Venous blood specimen / Unknown Venipuncture / Unknown 07/18/2024 11:49 AM EST 07/18/2024 11:49 AM EST us Aidan Batres MD LAB BLOOD ORDERABLES Final Res ult [facility] 56-02 [address] [place] [address] documented in this encounter Visit Diagnoses Diagnosis Neuroendocrine carcinoma of stomach (HCC)- Primary Nutritional deficiency Unspecified nutritional deficiency Anemia, unspecified type Nutritional anemia, unspecified documented in this encounter Advance Directives * [...] Advance Directives occurred with: Patient Care Teams Block Cableman Relationship Specialty Start Date End Date Lia Meadows MD [address] [place] [id number] PCP - General Internal Medicine 04/06/21 documented as of this encounter"
--- OUTSIDE RECORDS SUMMARY | 2024-07-19 05:05 | External Medical Summary ---
Author Name Unknown Address Unknown Organization K01:[facility] [address] [place] [address] Laboratory Report Ordering Provider Test Date Status TUNG ROBERT 07/18/2024 11:49:47 Final Observation Date Value Abnormality Reference (Units ) Status Ferritin 07/18/2024 11:49:47 23 Below low normal 30- 400 (ng/mL) Final Performing Location [facility] - [address] [place] [id number]
[2024-07-19 07:18] LABS: Hematocrit (blood only) 19.7 % (42.0-52.0); Hemoglobin 5.9 g/dl (14.0-18.0); Mean Corpuscular Hemoglobin 23.6 pg (25.0-34.0); Mean Corpuscular Hgb Conc 29.9 g/dL (32.0-36.0); Mean Corpuscular Volume 78.8 fL (80.0-100.0); Platelet Count 75 K/uL (130-400); RDW Standard Deviation 54.8 fL (36.4-46.3); White Blood Count 2.42 K/ul (4.8-10.8)
[2024-07-19] MEDS ORDERED: SODIUM CHLORIDE 0.9% 50 ML IV PRN (07:34)
[2024-07-19] MEDS ORDERED: SODIUM CHLORIDE 0.9% 100 ML IV PRN (07:34)
[2024-07-19 07:35] LABS: INR 1.4 (0.9-1.1)
[2024-07-19 07:49] LABS: Folate (Folic Acid),Ser orPlas > 22.30 ng/ml (>5.38)
[2024-07-19 07:50] LABS: Vitamin B12 272 pg/ml (180-914)
--- NOTE | 2024-07-19 08:00 | Communication Note ---
Date of Service: July 19, 2024 Hb noted to be 5.9 during chart review, pt was seen immediately after that. Pt states being weak, denies chest pain, no tachy noted. Pt consented for blood transfusion, stat prbc transfusion order placed for 2 units. RN notified.
[2024-07-19 08:05] LABS: Albumin Globulin Ratio 1.1 (0.9-2); Albumin Level 2.6 gm/dl (3.4-5.0); Bilirubin,Total 0.8 mg/dl (0.2-1.0); Calcium 8.6 mg/dl (8.6-10.3); Creatinine Clr Calc Pharmacy 15.1 ml/min; Ferritin 19.7 ng/ml (8-388); Globulin 2.4 gm/dl (2.5-4.0); Potassium 4.8 mmol/L (3.5-5.1)
--- NOTE | 2024-07-19 09:25 | Gastrointestinal Consultation ---
Date of Consultation July 19, 2024 Assessment & Plan (1) Cirrhosis: Complicated by ascites, esophageal varices status post band ligation recent endoscopy showed obliteration of varices. There was presence of portal gastropathy. Now with progressive renal disease possibly related to intravascular volume depletion from diuretics versus hepatorenal syndrome. Await further input from nephrology. Agree with holding diuretics. His ascites is not tense I would recommend at least a diagnostic paracentesis to rule out spontaneous bacterial peritonitis as a possible factor in his progressive renal dysfunction. (2) Anemia: Etiology of his anemia is most likely multifactorial including his underlying renal disease, chronic diseases as well as a GI source. I suspect he may have some low-grade bleeding from his portal gastropathy aggravated by his anticoagulation. Unlikely bleeding from varices in light of the fact that in March there was no significant ones present. Agree with blood transfusion. Continue to monitor his hemoglobin and hematocrit. (3) GERD (gastroesophageal reflux disease): I suspect that his nocturnal pain is related to acid reflux. I would recommend a trial of famotidine 40 mg at bedtime. History of Present Illness Reason for Consultation: CC patient for further evaluation of his underlying liver disease complicated by cirrhosis and GI bleeding Attending Physician: Basil Lew MD History of Present Illness This is a 78-year-old male with a history of decompensated cirrhosis complicated by ascites, esophageal varices s/p EVBL, portal gastropathy. 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 He was admitted yesterday with progressive weakness after being seen by his oncologist. On admission he was found to have a progression of his renal disease with a creatinine over 4 and to be anemic. He denies any melena or significant bright red blood per rectum. He denies any significant abdominal pain fever chills. His ascites is not as tense as it has been. He has also been complaining for over a year of nocturnal chest pain that feels like acid reflux. Other medical issues include CAD status post CABG x3 ischemic cardiomyopathy, history of multiple small CVA,HTN, HLD, T2DM, hypothyroidism, Allergies Allergy/AdvReac Type Severity Reaction Status Date / Time Sulfa (Sulfonamide Allergy Unknown CHILDHOOD Verified 09/13/23 08:32 Antibiotics) ALLERGY--CAN'T REMEMBER tramadol AdvReac Severe SEVERE Verified 09/13/23 08:32 VOMITING omeprazole AdvReac Intermediate PER PT Verified 09/13/23 08:32 "DID THE OPPOSITE, MADE ME WORSE". Home Medications Medication Instructions Recorded Confirmed Type nitroglycerin 0.4 mg sublingual 0.4 mg sublingual DIRECTED PRN 11/08/21 07/18/24 History tablet (Nitrostat) Chest Pain apixaban 5 mg tablet (Eliquis) 5 mg PO BID #60 tabs 04/02/24 07/18/24 Rx ascorbic acid (vitamin C) 500 mg 500 mg PO QAM #30 tabs 04/02/24 07/18/24 Rx tablet (Vitamin C) aspirin 81 mg tablet,delayed 81 mg PO 3XWK 30 days #14 tabs 04/02/24 07/18/24 Rx release atorvastatin 40 mg tablet 40 mg PO QAM #30 tabs 04/02/24 07/18/24 Rx cholecalciferol (vitamin D3) 50 50 mcg PO QAM #30 caps 04/02/24 07/18/24 Rx mcg (2,000 unit) capsule (Vitamin D3) dulaglutide 1.5 mg/0.5 mL 3 mg subcut WK 1 month #2 mL 04/02/24 07/18/24 Rx subcutaneous pen injector (Trulicity) furosemide 20 mg tablet 20 mg PO QAM #30 tabs 04/02/24 07/18/24 Rx insulin glargine 100 unit/mL (3 38 unit (0.38 mL) subcut HS #15 mL 04/02/24 07/18/24 Rx mL) subcutaneous pen levothyroxine 88 mcg tablet 88 mcg PO DAILYBB #30 tabs 04/02/24 07/18/24 Rx metoprolol succinate 100 mg 100 mg PO BID 30 days #60 tabs 04/02/24 07/18/24 Rx tablet,extended release 24 hr ondansetron HCl 4 mg tablet 4 mg PO Q8H PRN Nausea #10 tabs 04/02/24 07/18/24 Rx spironolactone 50 mg tablet 50 mg PO DAILY #30 tabs 04/02/24 07/18/24 Rx Patient History Medical History Cirrhosis of liver with ascites Generalized weakness DELIA (acute kidney injury) Acute GI bleeding Esophageal varices Incomplete emptying of bladder Cirrhosis of liver with ascites states has to have a paracentesis done CAD (coronary artery disease) Multivessel CAD including mid RCA 90% lesion with mild diffuse disease, 80% occlusion of the proximal LAD with heavily calcified lesion, and 100% STEEPLECHASE JOCKEY of left circumflex with [id number] and [id number] collaterals, per cath 05/27/2021 at [facility] [place] Status post CABG x3 (PAEZ to LAD, AO to RCA, AO to OM1) with and the graphic saphenous vein harvest, 05/30/2021 DELIA (acute kidney injury) Chylothorax Ischemic cardiomyopathy LVEF 30% post CABG; GRADE I diastolic dysfunction, NYHA class 2 Hypothyroid Diabetes mellitus IDDM Hyperlipidemia Hypertension Carotid artery stenosis Atrial fibrillation post operative CABG 2020, denies current A fib senior care (current) use of anticoagulants Osteoarthritis History of kidney stones stents placed and removed Stroke patient denies CKD (chronic kidney disease) stage 3, GFR 30-59 ml/min TIA (transient ischemic attack) in [place] prior to 2020 AND post operatively 2020 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, months of abtx---no antibiotics currently Surgical History Hx of cystoscopy w/ stent - 09/20/22 Hx of cardiac catheterization 05/2021 Hx of colonoscopy History of esophagogastroduodenoscopy (EGD) Hx of chest tube placement Hx of cholecystectomy History of coronary artery bypass graft CABG x 3 (PAEZ -LAD; AO-RCA; AO-OM1 w/ graphic SVG on 05/30/2021 Family History Other Heart disease Social History Smoking Status: Former smoker Tobacco Type: Cigarettes packs per day: 1; Cigarettes Per Day: quit ~ 30 yrs ago; Second Hand Exposure: No; Do You Dip or Chew Tobacco: No; Tobacco Cessation Education Requested by Patient: No Hx Alcohol Use: No Hx Substance Use: No Preferred Language: Irish Communication Ability: Effective Visual Impairment: No Limitations Forest Scientist Required: No Beliefs That Will Affect Care: None Current Living Situation: Spouse Other Information That Helps Us Care for You: No Feels Safe at Home: Yes Safety Concerns: Feels Safe At This Time Assistive Devices: Glasses Assistive Devices Comment: pt uses furniture to walk but can not walk more than 6-8 ft Review of Systems Review of Systems: No fever No chills No SOB No CP No Abd pain No confusion Physical Exam Physical Exam: Eyes; anicteric HENT No masses Chest clear to A Cor S1, S2 physiologic Abd: softer nontender moderate ascites no rebound no guarding Ext lower extremity edema Neurologic no asterixis Results & Data Vital Signs (Past 12 Hours) Vital Signs Temp Pulse Pulse Resp BP BP BP 07/19/24 08:36 36.2 C L 79 16 100/61 07/19/24 08:35 37 C 81 102/61 07/19/24 08:10 37.0 C 81 19 97/55 L 07/19/24 07:12 37.1 C 80 18 100/61 07/19/24 05:45 82 07/19/24 02:50 36.9 C 81 18 100/61 07/18/24 22:41 36.9 C 77 17 97/61 L 07/18/24 21:42 78 Pulse Ox O2 Del Method 07/19/24 08:36 96 07/19/24 08:35 96 07/19/24 08:10 97 07/19/24 07:12 98 Room Air 07/19/24 05:45 07/19/24 02:50 100 Room Air 07/18/24 22:41 99 Room Air 07/18/24 21:42 Laboratory Results Laboratory Results - last 48 hr 07/18/24 07/18/24 07/18/24 14:30 14:35 14:42 WBC 3.90 L RBC 3.43 L Hgb 8.2 L POC Hgb 9.5 L Hct 27.3 L POC Hct 28 L MCV 79.6 L MCH 23.9 L MCHC 30.0 L RDW Std Deviation 55.2 H RDW Coeff of Lencho 19.2 H Plt Count 144 MPV 12.1 Immature Gran % (Auto) 0.5 Neut % (Auto) 72.8 Lymph % (Auto) 10.3 [place] % (Auto) 15.9 Eos % (Auto) 0.0 Baso % (Auto) 0.5 Neut # (Auto) 2.84 Lymph # (Auto) 0.40 L [place] # (Auto) 0.62 H Eos # (Auto) 0.00 Baso # (Auto) 0.02 Immature Gran # (Auto) 0.02 PT 14.9 H INR 1.4 H APTT 36 H PTT Ratio 1.3 VBG pH VBG pCO2 VBG pO2 VBG HCO3 VBG O2 Saturation VBG Base Excess POC Sodium 136 Sodium 134 L POC Potassium 5.0 Potassium 5.0 POC Chloride 108 Chloride 109 H Carbon Dioxide 16 L POC Total CO2 16 L Anion Gap 9 POC Anion Gap 18.0 POC BUN 64 H BUN 64 H Creatinine 4.24 H POC Creatinine 4.7 H* Est Cr Clr Drug Dosing 15.1 eGFR 13.70 BUN/Creatinine Ratio 15.1 Glucose 99 POC Glucose POC Glucose (other) 94 Calcium 9.2 POC Ioniz Calcium Annetta 1.28 Magnesium 2.0 Iron Transferrin Ferritin Total Bilirubin 1.4 H Direct Bilirubin 0.5 H AST 23 ALT 17 Alkaline Phosphatase 120 H Ammonia 23.0 Troponin I High Sens 14.6 Total Protein 6.3 Albumin 3.2 L Globulin Albumin/Globulin Ratio Lipase 37 Vitamin B12 Folate Urine Color Urine Appearance Urine pH Ur Specific [place] Urine Protein Urine Glucose (UA) Urine Ketones Urine Blood Urine Nitrite Urine Bilirubin Urine Urobilinogen Ur Leukocyte Esterase Urine WBC (Auto) Urine RBC (Auto) U Hyaline Cast (Auto) U Epithel Cells (Auto) Urine Bacteria (Auto) Urine Yeast Blood Type A Positive Antibody Screen NEGATIVE Crossmatch See Detail 07/18/24 07/18/24 07/18/24 15:42 16:48 21:02 WBC RBC Hgb POC Hgb Hct POC Hct MCV MCH MCHC RDW Std Deviation RDW Coeff of Lencho Plt Count MPV Immature Gran % (Auto) Neut % (Auto) Lymph % (Auto) [place] % (Auto) Eos % (Auto) Baso % (Auto) Neut # (Auto) Lymph # (Auto) [place] # (Auto) Eos # (Auto) Baso # (Auto) Immature Gran # (Auto) PT INR APTT PTT Ratio VBG pH 7.32 L VBG pCO2 29 L VBG pO2 28 VBG HCO3 15 VBG O2 Saturation < 60.0 VBG Base Excess -9.8 POC Sodium Sodium POC Potassium Potassium POC Chloride Chloride Carbon Dioxide POC Total CO2 Anion Gap POC Anion Gap POC BUN BUN Creatinine POC Creatinine Est Cr Clr Drug Dosing eGFR BUN/Creatinine Ratio Glucose POC Glucose 106 H POC Glucose (other) Calcium POC Ioniz Calcium Annetta Magnesium Iron Transferrin Ferritin Total Bilirubin Direct Bilirubin AST ALT Alkaline Phosphatase Ammonia Troponin I High Sens Total Protein Albumin Globulin Albumin/Globulin Ratio Lipase Vitamin B12 Folate Urine Color Dark Yellow Urine Appearance Turbid A Urine pH 5.0 Ur Specific [place] 1.013 Urine Protein 1+ H Urine Glucose (UA) Negative Urine Ketones Negative Urine Blood 3+ H Urine Nitrite Negative Urine Bilirubin Negative Urine Urobilinogen Negative Ur Leukocyte Esterase 3+ H Urine WBC (Auto) >50 H Urine RBC (Auto) >20 H U Hyaline Cast (Auto) >20 H U Epithel Cells (Auto) >20 H Urine Bacteria (Auto) 4+ H Urine Yeast Present A Blood Type Antibody Screen Crossmatch 07/19/24 07/19/24 07/19/24 04:58 06:05 07:54 WBC 2.42 L RBC 2.50 L Hgb 5.9 L* POC Hgb Hct 19.7 L* POC Hct MCV 78.8 L MCH 23.6 L MCHC 29.9 L RDW Std Deviation 54.8 H RDW Coeff of Lencho 19.0 H Plt Count 75 L MPV Immature Gran % (Auto) Neut % (Auto) Lymph % (Auto) [place] % (Auto) Eos % (Auto) Baso % (Auto) Neut # (Auto) Lymph # (Auto) [place] # (Auto) Eos # (Auto) Baso # (Auto) Immature Gran # (Auto) PT 15.0 H INR 1.4 H APTT PTT Ratio VBG pH VBG pCO2 VBG pO2 VBG HCO3 VBG O2 Saturation VBG Base Excess POC Sodium Sodium 135 L POC Potassium Potassium 4.8 POC Chloride Chloride 109 H Carbon Dioxide 18 L POC Total CO2 Anion Gap 8 POC Anion Gap POC BUN BUN 68 H Creatinine 4.24 H POC Creatinine Est Cr Clr Drug Dosing 15.1 eGFR 13.70 BUN/Creatinine Ratio 16.0 Glucose 74 POC Glucose 83 83 POC Glucose (other) Calcium 8.6 POC Ioniz Calcium Annetta Magnesium 2.0 Iron 11 L Transferrin 240 Ferritin 19.7 Total Bilirubin 0.8 D Direct Bilirubin AST 22 ALT 15 Alkaline Phosphatase 100 Ammonia Troponin I High Sens Total Protein 5.0 L D Albumin 2.6 L Globulin 2.4 L Albumin/Globulin Ratio 1.1 Lipase Vitamin B12 272 Folate > 22.30 Urine Color Urine Appearance Urine pH Ur Specific [place] Urine Protein Urine Glucose (UA) Urine Ketones Urine Blood Urine Nitrite Urine Bilirubin Urine Urobilinogen Ur Leukocyte Esterase Urine WBC (Auto) Urine RBC (Auto) U Hyaline Cast (Auto) U Epithel Cells (Auto) Urine Bacteria (Auto) Urine Yeast Blood Type Antibody Screen Crossmatch Diagnostic Findings Cervical Spine CT 07/18/24 14:26 CT cervical spine wo con CT DOSE: 2591.36 mGy.cm CLINICAL HISTORY: 78 years-old Male with trauma. Acute head and neck injury status post fall COMPARISON: Head CT of same day TECHNIQUE: Multiple axial CT images of the cervical spine were obtained without contrast. A dose lowering technique was utilized adhering to the principles of ALARA. FINDINGS: Mild multilevel intervertebral disc space narrowing. Moderate disc space narrowing C6-C7. [id number] and spondylotic spurring with multilevel facet arthrosis, severe on the left at C5-C6. Moderate degeneration at C1-C2. Multilevel neural foraminal narrowing, suboptimally assessed by CT technique. The cervical soft tissues appear unremarkable. Small calcified foci noted within the thyroid. The visualized lung apices appear clear. IMPRESSION: No acute cervical spine fracture or subluxation. ACT 112: Negative or not required by law. The above report was generated using voice recognition software. It may contain grammatical, syntax or spelling errors. Electronically signed by: Zackary Roman M.D. 07/18/2024 3:25 PM Chest X-Ray 07/18/24 14:26 XR chest 1V portable CLINICAL HISTORY: trauma COMPARISON STUDY: 08/27/2022 FINDINGS: Stable CABG. Heart size and pulmonary vasculature are normal. No effusion, consolidation, or pneumothorax. No acute osseous finding seen. IMPRESSION: No acute findings. ACT 112: Negative or not required by law. Electronically signed by: Jose Sorensen M.D. 07/18/2024 3:[address] 07/18/24 14:26 CT OF THE HEAD WITHOUT CONTRAST CLINICAL HISTORY: trauma COMPARISON STUDY: No previous studies for comparison. TECHNIQUE: Helical axial images of the head were obtained without IV contrast. Automated exposure control was utilized for the study. A dose lowering technique was utilized adhering to the principles of ALARA. FINDINGS: No acute intracranial hemorrhage, midline shift or mass effect is present. White matter hypodensity suggests small vessel disease The ventricular system is unremarkable. The basal cisterns are patent. No extra-axial collections are present. There are no findings to suggest acute dural sinus th rombosis or acute territorial infarct. No significant calvarial abnormalities are present. Visualized portions of the sinuses and mastoid air cells are clear. IMPRESSION: 1. No acute intracranial findings. 2. No calvarial fractures. ACT 112: Negative or not required by law. Electronically signed by: Dominic Beth M.D. 07/18/2024 3:25 PM Pelvis X-Ray 07/18/24 14:26 XR pelvis 1-2V routine CLINICAL HISTORY: trauma COMPARISON: 03/23/2024 FINDINGS: There are stable soft tissue calcifications or foreign bodies in the inguinal regions bilaterally. No fracture or dislocation. Hip joint spaces are maintained. IMPRESSION: No fracture seen. ACT 112: Negative or not required by law. Electronically signed by: Jose Sorensen M.D. 07/18/2024 3:15 PM Abdomen/Pelvis CT 07/18/24 14:37 CT OF THE ABDOMEN AND PELVIS WITHOUT CONTRAST CLINICAL HISTORY: fall COMPARISON STUDY: CT of the abdomen and pelvis March 23, 2024. TECHNIQUE: Axial images of the abdomen and pelvis were obtained without IV contrast. Images were reviewed in the axial, sagittal, and coronal planes. Automated exposure control was utilized for the study. A dose lowering technique was utilized adhering to the principles of ALARA. FINDINGS: Visualized portions of the lung bases are unremarkable. No hemoperitoneum or pneumoperitoneum is present. Large volume abdominal and pelvic ascites has increased when compared to prior CT. Evaluation of the solid abdominal viscera is suboptimal on this unenhanced exam. There is no evidence for traumatic injury to the liver, spleen, adrenal glands, kidneys or pancreas. There are calcified granulomas within liver and spleen. The liver is cirrhotic. Splenomegaly is unchanged. There is no hydronephrosis. There is no evidence for a bowel obstruction. The bladder is distended. Ascites within bilateral inguinal hernias is present. There is no evidence for a bowel obstruction. Note is made of colonic diverticulosis without evidence for acute diverticulitis. No acute lumbar spine, pelvic or hip fractures are present. IMPRESSION: 1. No acute traumatic findings within the abdomen or pelvis on unenhanced exam. 2. Cirrhotic liver. Large volume ascites. Stable splenomegaly. 3. Colonic diverticulosis. No evidence for acute diverticulitis. 4. No acute fractures. ACT 112: Negative or not required by law. Electronically signed by: Dominic Beth M.D. 07/18/2024 3:31 PM PG Care Time/CCT Total # of Minutes Spent Total Time Spent with Patient: Total time spent is greater than 50% in coordination of care (as documented) at patient's floor/unit and/or counseling patient: Coding Level of Care Code 85506 IN/OBS CONSULT LVL 4,60M Diagnoses Cirrhosis K74.60 Anemia D64.9 GERD (gastroesophageal reflux disease) K21.9
[2024-07-19] MEDS: SACCHAROMYCES BOULARDII 250 MG CAP PO SCH (09:28)
[2024-07-19] MEDS: ACETAMINOPHEN 325 MG TAB PO ONE (09:28)
[2024-07-19] MEDS: ATORVASTATIN 40 MG TAB PO SCH (09:29)
[2024-07-19] MEDS: CHOLECALCIFEROL 25 MCG (1000 UNITS) TAB PO SCH (09:29)
[2024-07-19] MEDS: CYANOCOBALAMIN (B-12) 500 MCG TABLET PO SCH (09:57)
[2024-07-19] MEDS: PANTOprazole 40 MG TAB PO ONE (10:49)
--- NOTE | 2024-07-19 11:48 | Hospitalist Progress Note ---
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 Jean, CKD stage III, anemia, decompensated cirrhosis with marked ascites/esophageal varices/portal gastropathy, history of C. difficile, gastrointestinal bleeding previously on Eliquis and recent EGD with gastric neuroendocrine tumor stage II [follows Dr. linda hooks]. He was sent to the hospital by his oncologist due to his elevated creatinine and low hemoglobin level. He reports falling about 10 days ago SIGNALER and about 1 day ago SIGNALER hitting his left arm and left lateral trunk. He denies hitting head or loss of consciousness. He reports not taking his lactulose for about 6 days SIGNALER, and did not have bowel movement for about 3 to 4 days SIGNALER. His other main complaints are poor sleep, constantly feeling tired for the last couple of years and not feeling rested. He reports overall declining health. He is being managed for the following: Fall: Patient reports falling 10 days ago SIGNALER and 1 day ago SIGNALER, see above. Admitting C-spine CT/CXR/CT head/pelvic x-ray with no acute finding. Patient reports pain under control. Fall precaution. Cirrhosis decompensated Gastric neuroendocrine tumor Possible GI bleed MELD-Na: 25 on admission EGD prior to this admission on 09/2023 showed large varices banded x 3 and portal HTN gastropathy Underwent EGD 2023 which revealed gastric neuroendocrine tumor stage II - s/p lanreotide x 2 o 05/12/24 and 06/09/24 Outpatient hemoglobin of 7.7. Patient noted to have hemoglobin of 5.9 on 07/19, 2 unit PRBC transfusion ordered. Follow CBC posttransfusion and 8 PM and in AM. Anemia secondary to multifactorial causes including underlying renal disease, possible GI source and other chronic diseases. Aspirin and Eliquis on hold [Last dose at 10 AM of 07/18], continue IV PPI, GI on board. Transfuse for hemoglobin less than 7 or for symptomatic anemia. Discussed with patient's hematology Dr. Linda Hooks, recommends IV iron in addition to blood transfusion. Will infuse IV iron likely tomorrow. Admitting CTAP with cirrhotic liver and large volume ascites. Patient with no abdominal tenderness on exam, patient/his son does not want any fluid restriction or dietary restriction. IR paracentesis likely on Sunday. Diuretics on hold due to kidney injury.will need IV albumin post paracentesis. Possible UTI: Patient started on Rocephin, continue. Follow admitting urine and blood culture. Acute on Chronic CKD 3 baseline cr 1.7-1.8 Cr. baseline of 1.7, was 4.1 at cancer center, and 4.2 in the ER. Discussed with nephrology, likely secondary to anemia, patient getting blood transfusion, will continue to monitor BMP. Diuretics on hold. Nephrology on board, await further recommendation. 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 03/25/24: Echo: Mild concentric LVH, EF 55 to 60%, grade 1 Diastolic dysfunction, mild to moderate mitral regurgitation Continue statin Post op afib Hx of CVA -Home eliquis and aspirin on HOLD for possible GI bleed T2DM, insulin dependent last a1c 6.4 ISS with accuchecks, at home on trulicity Monitor and avoid hypoglycemia Hypothyroidism continue synthroid Goals of care discussion: Patient's son and patient both were at bedside. Patient states that he wants his son to be POA, they are working on papers. Patient's son name is Norris Francois Jr. They do not want any dietary restriction or fluid restriction. They want to have palliative care evaluation for guidance/goals of care discussion. Until then they want to continue conservative management for now including telemetry/blood draws/blood transfusion/other noninvasive measures. He is DNR/DNI and they understand the poor prognosis. They are interested in Pleurx catheter for ascites fluid, will have to see if IR here is able to place the catheter or he needs to follow-up with IR as an outpatient. Both paracentesis and palliative care will possibly be available on Sunday. Will continue to manage his pain with focus of comfort in mind and continue to treat him conservatively until further discussion between the family and palliative care. DVT ppx: teds, scds, hold Eliquis for suspected GI bleed Line: PIV x 2 FEN/GI: NPO CODE: FULL Dispo: From home, likely to remain in the hospital x 1-2 days Admission and Anticipated Discharge Date Admission Date: July 18, 2024 Subjective Patient was seen and examined at bedside. Patient was lying in bed, on room air, NAD, resting comfortably. Patient appears pale, reports feeling tired, denies chest pain/palpitation/shortness of breath. Patient's hemoglobin in the morning 5.9, transfusing 2 unit PRBC, will do follow-up H&H. Patient reports not moving bowel in the last 4 days, patient reports stopping his lactulose about 6 days ago SIGNALER. Visited patient at bedside again later in the morning, patient's son Norris present at bedside. Patient confirms that he wants patient's son Norris to be his POA, they are working on the paperwork. They would like to discuss with palliative care and would like to have evaluation by interventional radiology, both of which will most likely happen on Sunday. For now they want to focus more on comfort aspect of patient care with ongoing conservative management including lab draws/telemetry monitoring/blood transfusion/other nonaggressive measures. He is DNR/DNI and they both understand his poor prognosis. They do not want any kind of fluid or dietary restriction. Physical Exam Physical Exam: General- oriented x 3, not in distress, speaks in sentences with no effort or accessory muscle use weak, frail, Appears sick. Head- atraumatic Eyes- PERRL, EOMI, anicteric, + pallor ENT- oropharynx clear Neck- supple, no JVD, no adenopathy, no thyromegaly; carotids +2/2, no bruits appreciated Lungs- clear to auscultation bilaterally, no rales/wheezes Heart- normal rate, regular rhythm; (+) grade 3/6 holosystolic murmur, no gallop, no rub appreciated Abdomen- normal bowel sounds, moderately distended, soft, nontender Extremities- grade 1 lower extremity edema, no calf tenderness; peripheral pulses intact (+) small BL knee abrasions Neuro- alert, oriented x 3; CN 2-12 grossly intact; motor 5/5 bilaterally;sensation 100% on all extremities; no other gross focal neurologic deficits Skin- warm & dry Results & Data Results & Data Vital Signs (Past 12 Hours) Vital Signs Temp Pulse Pulse Resp BP BP BP 07/19/24 11:26 36.7 C 75 16 101/62 07/19/24 10:25 37.1 C 77 16 106/63 07/19/24 09:21 37.1 C 77 16 106/63 07/19/24 08:51 37.3 C 79 16 96/60 L 07/19/24 08:36 36.2 C L 79 16 100/61 07/19/24 08:35 37 C 81 102/61 07/19/24 08:10 37.0 C 81 19 97/55 L 07/19/24 07:12 37.1 C 80 18 100/61 07/19/24 05:45 82 07/19/24 02:50 36.9 C 81 18 100/61 Pulse Ox O2 Del Method 07/19/24 11:26 97 07/19/24 10:25 97 07/19/24 09:21 97 07/19/24 08:51 97 07/19/24 08:36 96 07/19/24 08:35 96 07/19/24 08:10 97 07/19/24 07:12 98 Room Air 07/19/24 05:45 07/19/24 02:50 100 Room Air
[2024-07-19 14:33] LABS: Hematocrit (blood only) 27.6 % (42.0-52.0); Hemoglobin 8.6 g/dl (14.0-18.0)
--- NOTE | 2024-07-19 16:25 | Nephrology Consultation ---
Date of Consultation July 19, 2024 Assessment & Plan (1) DELIA (acute kidney injury): patient with the acute kidney injury on CKD likely ischemic ATN in setting of possible GI bleed and anemia. Admission creatinine of 4. Creatinine was 2.7 on 05/23/2024. Electrolytes are stable no indication for dialysis. - Continue volume resuscitation with blood transfusion - monitor input output and daily weight - avoid nephrotoxins (2) Anemia: patient admitted with hemoglobin of 5.9 likely due to GI bleed setting of portal hypertensive gastropathy. recommend 2 units of blood transfusion. Patient was evaluated by GI and is on PPIs. Monitor hemoglobin at least daily to keep above 7 (3) Cirrhosis: patient with decompensated cirrhosis. Diuretics on hold due to acute renal failure. If renal function does not improve with the blood transfusion, will try HR S treatment History of Present Illness Reason for Consultation: acute kidney injury Requesting Physician: Basil Lew MD Attending Physician: Basil Lew MD History of Present Illness This is a 78-year-old male with a history of CKD stage 3 baseline creatinine 1.5-2, CAD status post CABG x3, history of multiple small CVA,HTN, HLD, T2DM, hypothyroidism, decompensated cirrhosis complicated by ascites, esophageal varices s/p EVBL, portal gastropathy and gastric neuroendocrine tumors stage 2. patient has been having progressive weakness over the past few weeks. He went for routine follow-up with Dr. Batres and was found have a creatinine of 4 and hemoglobin of 7.7. creatinine was 2.7 and hemoglobin of 7.7 on 05/23/2024. patient denied melena stools. Patient recently hospitalized and had an EGD in April which showed some portal hypertensive gastropathy, GI bleed and gastric neuroendocrine tumors. He has been taking lactulose for diarrhea but stopped due to profuse diarrhea few days prior to admission. he has abdominal distention. He is making urine about 600 mL. Patient was taking Lasix 20 mg daily and Aldactone at home. Son was at the bedside and provided additional history. Allergies Allergy/AdvReac Type Severity Reaction Status Date / Time Sulfa (Sulfonamide Allergy Unknown CHILDHOOD Verified 09/13/23 08:32 Antibiotics) ALLERGY--CAN'T REMEMBER tramadol AdvReac Severe SEVERE Verified 09/13/23 08:32 VOMITING omeprazole AdvReac Intermediate PER PT Verified 09/13/23 08:32 "DID THE OPPOSITE, MADE ME WORSE". Home Medications Medication Instructions Recorded Confirmed Type nitroglycerin 0.4 mg sublingual 0.4 mg sublingual DIRECTED PRN 11/08/21 07/18/24 History tablet (Nitrostat) Chest Pain apixaban 5 mg tablet (Eliquis) 5 mg PO BID #60 tabs 04/02/24 07/18/24 Rx ascorbic acid (vitamin C) 500 mg 500 mg PO QAM #30 tabs 04/02/24 07/18/24 Rx tablet (Vitamin C) aspirin 81 mg tablet,delayed 81 mg PO 3XWK 30 days #14 tabs 04/02/24 07/18/24 Rx release atorvastatin 40 mg tablet 40 mg PO QAM #30 tabs 04/02/24 07/18/24 Rx cholecalciferol (vitamin D3) 50 50 mcg PO QAM #30 caps 04/02/24 07/18/24 Rx mcg (2,000 unit) capsule (Vitamin D3) dulaglutide 1.5 mg/0.5 mL 3 mg subcut WK 1 month #2 mL 04/02/24 07/18/24 Rx subcutaneous pen injector (Trulicity) furosemide 20 mg tablet 20 mg PO QAM #30 tabs 04/02/24 07/18/24 Rx insulin glargine 100 unit/mL (3 38 unit (0.38 mL) subcut HS #15 mL 04/02/24 07/18/24 Rx mL) subcutaneous pen levothyroxine 88 mcg tablet 88 mcg PO DAILYBB #30 tabs 04/02/24 07/18/24 Rx metoprolol succinate 100 mg 100 mg PO BID 30 days #60 tabs 04/02/24 07/18/24 Rx tablet,extended release 24 hr ondansetron HCl 4 mg tablet 4 mg PO Q8H PRN Nausea #10 tabs 04/02/24 07/18/24 Rx spironolactone 50 mg tablet 50 mg PO DAILY #30 tabs 04/02/24 07/18/24 Rx Patient History Medical History Cirrhosis of liver with ascites Generalized weakness DELIA (acute kidney injury) Acute GI bleeding Esophageal varices Incomplete emptying of bladder Cirrhosis of liver with ascites states has to have a paracentesis done CAD (coronary artery disease) Multivessel CAD including mid RCA 90% lesion with mild diffuse disease, 80% occlusion of the proximal LAD with heavily calcified lesion, and 100% 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, months of abtx---no antibiotics currently Surgical History Hx of cystoscopy w/ stent - 09/20/22 Hx of cardiac catheterization 05/2021 Hx of colonoscopy History of esophagogastroduodenoscopy (EGD) Hx of chest tube placement Hx of cholecystectomy History of coronary artery bypass graft CABG x 3 (PAEZ -LAD; AO-RCA; AO-OM1 w/ graphic SVG on 05/30/2021 Family History Other Heart disease Social History Smoking Status: Former smoker Tobacco Type: Cigarettes packs per day: 1; Cigarettes Per Day: quit ~ 30 yrs ago; Second Hand Exposure: No; Do You Dip or Chew Tobacco: No; Tobacco Cessation Education Requested by Patient: No Hx Alcohol Use: No Hx Substance Use: No Preferred Language: Armenian Communication Ability: Effective Visual Impairment: No Limitations Sticker On Required: No Beliefs That Will Affect Care: None Current Living Situation: Spouse Other Information That Helps Us Care for You: No Feels Safe at Home: Yes Safety Concerns: Feels Safe At This Time Assistive Devices: Glasses Assistive Devices Comment: pt uses furniture to walk but can not walk more than 6-8 ft Review of Systems 2 Review of Systems: All other systems were reviewed and negative except as noted in HPI Physical Exam 2 Physical Exam: General exam: Appears comfortable, no acute distress HEENT: Pupils are equal and reactive to light Neck: No JVD, neck is supple trachea is midline Respiratory system: Clear breath sounds bilaterally. Gastrointestinal: Abdomen is soft, Moderately distended, non tender, bowel sounds are present CVS: Regular rate and rhythm. No murmurs, rubs or gallops Musculoskeletal: No joint or muscle tenderness Extremities: Non tender, no edema, peripheral pulses are present Neuro: Oriented, no tremors, no focal neurological deficits Skin: No rashes Results & Data Vital Signs (Past 12 Hours) Vital Signs Temp Pulse Pulse Resp BP BP Pulse Ox 07/19/24 14:59 36.4 C L 78 19 101/65 98 07/19/24 13:51 36.7 C 79 16 106/64 97 07/19/24 13:45 79 07/19/24 12:05 36.7 C 75 19 101/62 97 07/19/24 12:04 36.7 C 80 18 105/62 98 07/19/24 11:49 37.1 C 80 16 103/61 97 07/19/24 11:48 36.2 C L 80 16 115/64 97 07/19/24 11:26 36.7 C 75 16 101/62 97 07/19/24 10:25 37.1 C 77 16 106/63 97 07/19/24 09:21 37.1 C 77 16 106/63 97 07/19/24 08:51 37.3 C 79 16 96/60 L 97 07/19/24 08:36 36.2 C L 79 16 100/61 96 07/19/24 08:35 37 C 81 102/61 96 07/19/24 08:10 37.0 C 81 19 97/55 L 97 07/19/24 07:12 37.1 C 80 18 100/61 98 07/19/24 05:45 82 O2 Del Method 07/19/24 14:59 Room Air 07/19/24 13:51 07/19/24 13:45 07/19/24 12:05 Room Air 07/19/24 12:04 07/19/24 11:49 07/19/24 11:48 07/19/24 11:26 07/19/24 10:25 07/19/24 09:21 07/19/24 08:51 07/19/24 08:36 07/19/24 08:35 07/19/24 08:10 07/19/24 07:12 Room Air 07/19/24 05:45 Laboratory Results 07/19/24 06:05 07/19/24 06:05 WBC 2.42 L RBC 2.50 L MCV 78.8 L MCH 23.6 L MCHC 29.9 L RDW Std Deviation 54.8 H RDW Coeff of Lencho 19.0 H Plt Count 75 L Albumin 2.6 L
[2024-07-19] MEDS: LACTULOSE SYRUP 20 GM/30 ML UDC PO SCH (17:06)
[2024-07-19] MEDS: cefTRIAXone SODIUM 1,000 MG/50 ML BAG IV SCH (18:06)
[2024-07-19] MEDS: FAMOTIDINE 40 MG TABLET PO SCH (20:23)
[2024-07-19] MEDS: oxyCODONE HCL IR 5 MG TAB (IMMEDIATE RELEASE) PO PRN (20:29)
[2024-07-19] MEDS: INSULIN ASPART PER UNIT CHARGE SC SCH (20:47)
--- NOTE | 2024-07-20 01:33 | Communication Note ---
Date of Service: July 20, 2024 Notified by RN of 175 output through morris and bladder scan reading of 993. Patient comfortable as per RN. AP Abnormal bladder scan Ascites on imaging Dedicated bladder ultrasound
--- NOTE | 2024-07-20 01:54 | Ultrasound Report ---
EXAM: US retro bladder ltd CLINICAL HISTORY: Bladder residual after catheter placement Collapsed bladder seen around catheter. Abdominal ascites seen. TECHNIQUE: Ultrasound limited retroperitoneal/urinary bladder performed in grayscale imaging. COMPARISON: 12/11/2022 FINDINGS: Moderate fluid is identified in the pelvis showing faint echoes Urinary bladder: Urinary bladder appears to be collapsed, with lumen not visualized, however morris's bulb seen. IMPRESSION: 1. Fluid is identified in the pelvis with faint echoes likely free fluid/ ascites. This was also present in the prior examination. 2. Morris catheter is identified likely in urinary bladder, however, the lumen of the bladder is not well visualized likely due to a completely collapsed status, with no residual volume 3. CT scan may be obtained for further evaluation. 4. Morris's catheter was not seen in the prior examination. Electronically signed by Humza Leos 07-20-2024 01:51 AM
[2024-07-20 06:24] LABS: Hematocrit (blood only) 27.2 % (42.0-52.0); Hemoglobin 8.4 g/dl (14.0-18.0); Mean Corpuscular Hemoglobin 24.8 pg (25.0-34.0); Mean Corpuscular Hgb Conc 30.9 g/dL (32.0-36.0); Mean Corpuscular Volume 80.2 fL (80.0-100.0); Platelet Count 68 K/uL (130-400); RDW Coefficient of Variation 18.2 % (11.5-14.5); RDW Standard Deviation 53.3 fL (36.4-46.3); Red Blood Count 3.39 M/uL (4.70-6.10); White Blood Count 2.94 K/ul (4.8-10.8)
[2024-07-20 06:51] LABS: Albumin Globulin Ratio 1.1 (0.9-2); Albumin Level 2.7 gm/dl (3.4-5.0); BUN Creatinine Ratio 17.3 (10-20); Bilirubin,Total 1.2 mg/dl (0.2-1.0); Calcium 8.6 mg/dl (8.6-10.3); Creatinine Clr Calc Pharmacy 15.3 ml/min; Globulin 2.4 gm/dl (2.5-4.0); Magnesium 2.1 mg/dl (1.7-2.4); Phosphorus 4.6 mg/dl (2.5-4.9); Potassium 5.3 mmol/L (3.5-5.1); Total Protein 5.1 gm/dl (6.0-8.3)
--- NOTE | 2024-07-20 08:55 | Gastroenterology Progress Note ---
Date of Service July 20, 2024 Assessment & Plan (1) Cirrhosis: Plan: Complicated by ascites esophageal varices portal gastropathy. Hemoglobin 8.4 posttransfusion no signs of overt bleeding. Await paracentesis. Please send fluid for cell count cytology and culture. (2) Anemia: Plan: Multifactorial possibly some element of portal gastropathy as cause for bleeding based on recent endoscopy. Continue to monitor hemoglobin hematocrit (3) GERD (gastroesophageal reflux disease): Plan: Continue famotidine at bedtime for now to assess efficacy Admission and Anticipated Discharge Date Admission Date: July 18, 2024 Subjective Denies shortness of breath chest pain or abdominal pain Physical Exam Physical Exam: No acute distress Respiratory rate regular Cardiac rhythm regular Abdomen soft nontender moderate ascites Extremities no significant edema Results & Data Results & Data Vital Signs (Past 12 Hours) Vital Signs Temp Pulse Pulse Resp BP BP Pulse Ox 07/20/24 07:16 36.3 C L 78 18 100/63 98 07/20/24 05:35 79 07/20/24 03:18 36.2 C L 79 18 101/62 97 07/19/24 23:29 81 07/19/24 22:20 07/19/24 22:14 36.8 C 84 16 109/66 97 O2 Del Method 07/20/24 07:16 Room Air 07/20/24 05:35 07/20/24 03:18 Room Air 07/19/24 23:29 07/19/24 22:20 Room Air 07/19/24 22:14 Room Air Laboratory Results Laboratory Results - last 48 hr 07/18/24 07/18/24 07/18/24 14:30 14:35 14:42 WBC 3.90 L RBC 3.43 L Hgb 8.2 L POC Hgb 9.5 L Hct 27.3 L POC Hct 28 L MCV 79.6 L MCH 23.9 L MCHC 30.0 L RDW Std Deviation 55.2 H RDW Coeff of Lencho 19.2 H Plt Count 144 MPV 12.1 Immature Gran % (Auto) 0.5 Neut % (Auto) 72.8 Lymph % (Auto) 10.3 [place] % (Auto) 15.9 Eos % (Auto) 0.0 Baso % (Auto) 0.5 Neut # (Auto) 2.84 Lymph # (Auto) 0.40 L [place] # (Auto) 0.62 H Eos # (Auto) 0.00 Baso # (Auto) 0.02 Immature Gran # (Auto) 0.02 PT 14.9 H INR 1.4 H APTT 36 H PTT Ratio 1.3 VBG pH VBG pCO2 VBG pO2 VBG HCO3 VBG O2 Saturation VBG Base Excess POC Sodium 136 Sodium 134 L POC Potassium 5.0 Potassium 5.0 POC Chloride 108 Chloride 109 H Carbon Dioxide 16 L POC Total CO2 16 L Anion Gap 9 POC Anion Gap 18.0 POC BUN 64 H BUN 64 H Creatinine 4.24 H POC Creatinine 4.7 H* Est Cr Clr Drug Dosing 15.1 eGFR 13.70 BUN/Creatinine Ratio 15.1 Glucose 99 POC Glucose POC Glucose (other) 94 Calcium 9.2 POC Ioniz Calcium Annetta 1.28 Phosphorus Magnesium 2.0 Iron Transferrin Ferritin Total Bilirubin 1.4 H Direct Bilirubin 0.5 H AST 23 ALT 17 Alkaline Phosphatase 120 H Ammonia 23.0 Troponin I High Sens 14.6 Total Protein 6.3 Albumin 3.2 L Globulin Albumin/Globulin Ratio Lipase 37 Vitamin B12 Folate Urine Color Urine Appearance Urine pH Ur Specific [place] Urine Protein Urine Glucose (UA) Urine Ketones Urine Blood Urine Nitrite Urine Bilirubin Urine Urobilinogen Ur Leukocyte Esterase Urine WBC (Auto) Urine RBC (Auto) U Hyaline Cast (Auto) U Epithel Cells (Auto) Urine Bacteria (Auto) Urine Yeast Blood Type A Positive Antibody Screen NEGATIVE Crossmatch See Detail 07/18/24 07/18/24 07/18/24 15:42 16:48 21:02 WBC RBC Hgb POC Hgb Hct POC Hct MCV MCH MCHC RDW Std Deviation RDW Coeff of Lencho Plt Count MPV Immature Gran % (Auto) Neut % (Auto) Lymph % (Auto) [place] % (Auto) Eos % (Auto) Baso % (Auto) Neut # (Auto) Lymph # (Auto) [place] # (Auto) Eos # (Auto) Baso # (Auto) Immature Gran # (Auto) PT INR APTT PTT Ratio VBG pH 7.32 L VBG pCO2 29 L VBG pO2 28 VBG HCO3 15 VBG O2 Saturation < 60.0 VBG Base Excess -9.8 POC Sodium Sodium POC Potassium Potassium POC Chloride Chloride Carbon Dioxide POC Total CO2 Anion Gap POC Anion Gap POC BUN BUN Creatinine POC Creatinine Est Cr Clr Drug Dosing eGFR BUN/Creatinine Ratio Glucose POC Glucose 106 H POC Glucose (other) Calcium POC Ioniz Calcium [place] Phosphorus Magnesium Iron Transferrin Ferritin Total Bilirubin Direct Bilirubin AST ALT Alkaline Phosphatase Ammonia Troponin I High Sens Total Protein Albumin Globulin Albumin/Globulin Ratio Lipase Vitamin B12 Folate Urine Color Dark Yellow Urine Appearance Turbid A Urine pH 5.0 Ur Specific [place] 1.013 Urine Protein 1+ H Urine Glucose (UA) Negative Urine Ketones Negative Urine Blood 3+ H Urine Nitrite Negative Urine Bilirubin Negative Urine Urobilinogen Negative Ur Leukocyte Esterase 3+ H Urine WBC (Auto) >50 H Urine RBC (Auto) >20 H U Hyaline Cast (Auto) >20 H U Epithel Cells (Auto) >20 H Urine Bacteria (Auto) 4+ H Urine Yeast Present A Blood Type Antibody Screen Crossmatch 07/19/24 07/19/24 07/19/24 04:58 06:05 07:54 WBC 2.42 L RBC 2.50 L Hgb 5.9 L* POC Hgb Hct 19.7 L* POC Hct MCV 78.8 L MCH 23.6 L MCHC 29.9 L RDW Std Deviation 54.8 H RDW Coeff of Lencho 19.0 H Plt Count 75 L MPV Immature Gran % (Auto) Neut % (Auto) Lymph % (Auto) [place] % (Auto) Eos % (Auto) Baso % (Auto) Neut # (Auto) Lymph # (Auto) [place] # (Auto) Eos # (Auto) Baso # (Auto) Immature Gran # (Auto) PT 15.0 H INR 1.4 H APTT PTT Ratio VBG pH VBG pCO2 VBG pO2 VBG HCO3 VBG O2 Saturation VBG Base Excess POC Sodium Sodium 135 L POC Potassium Potassium 4.8 POC Chloride Chloride 109 H Carbon Dioxide 18 L POC Total CO2 Anion Gap 8 POC Anion Gap POC BUN BUN 68 H Creatinine 4.24 H POC Creatinine Est Cr Clr Drug Dosing 15.1 eGFR 13.70 BUN/Creatinine Ratio 16.0 Glucose 74 POC Glucose 83 83 POC Glucose (other) Calcium 8.6 POC Ioniz Calcium [place]netta Phosphorus Magnesium 2.0 Iron 11 L Transferrin 240 Ferritin 19.7 Total Bilirubin 0.8 D Direct Bilirubin AST 22 ALT 15 Alkaline Phosphatase 100 Ammonia Troponin I High Sens Total Protein 5.0 L D Albumin 2.6 L Globulin 2.4 L Albumin/Globulin Ratio 1.1 Lipase Vitamin B12 272 Folate > 22.30 Urine Color Urine Appearance Urine pH Ur Specific [place] Urine Protein Urine Glucose (UA) Urine Ketones Urine Blood Urine Nitrite Urine Bilirubin Urine Urobilinogen Ur Leukocyte Esterase Urine WBC (Auto) Urine RBC (Auto) U Hyaline Cast (Auto) U Epithel Cells (Auto) Urine Bacteria (Auto) Urine Yeast Blood Type Antibody Screen Crossmatch 07/19/24 07/19/24 07/19/24 11:26 13:55 16:31 WBC RBC Hgb 8.6 L POC Hgb Hct 27.6 L POC Hct MCV MCH MCHC RDW Std Deviation RDW Coeff of Lencho Plt Count MPV Immature Gran % (Auto) Neut % (Auto) Lymph % (Auto) [place] % (Auto) Eos % (Auto) Baso % (Auto) Neut # (Auto) Lymph # (Auto) [place] # (Auto) Eos # (Auto) Baso # (Auto) Immature Gran # (Auto) PT INR APTT PTT Ratio VBG pH VBG pCO2 VBG pO2 VBG HCO3 VBG O2 Saturation VBG Base Excess POC Sodium Sodium POC Potassium Potassium POC Chloride Chloride Carbon Dioxide POC Total CO2 Anion Gap POC Anion Gap POC BUN BUN Creatinine POC Creatinine Est Cr Clr Drug Dosing eGFR BUN/Creatinine Ratio Glucose POC Glucose 97 187 H POC Glucose (other) Calcium POC Ioniz Calcium [place] Phosphorus Magnesium Iron Transferrin Ferritin Total Bilirubin Direct Bilirubin AST ALT Alkaline Phosphatase Ammonia Troponin I High Sens Total Protein Albumin Globulin Albumin/Globulin Ratio Lipase Vitamin B12 Folate Urine Color Urine Appearance Urine pH Ur Specific [place] Urine Protein Urine Glucose (UA) Urine Ketones Urine Blood Urine Nitrite Urine Bilirubin Urine Urobilinogen Ur Leukocyte Esterase Urine WBC (Auto) Urine RBC (Auto) U Hyaline Cast (Auto) U Epithel Cells (Auto) Urine Bacteria (Auto) Urine Yeast Blood Type Antibody Screen Crossmatch 07/19/24 07/20/24 07/20/24 20:37 05:33 07:15 WBC 2.94 L RBC 3.39 L Hgb 8.4 L POC Hgb Hct 27.2 L POC Hct MCV 80.2 MCH 24.8 L MCHC 30.9 L RDW Std Deviation 53.3 H RDW Coeff of Len[place] 18.2 H Plt Count 68 L MPV Immature Gran % (Auto) Neut % (Auto) Lymph % (Auto) [place] % (Auto) Eos % (Auto) Baso % (Auto) Neut # (Auto) Lymph # (Auto) [place] # (Auto) Eos # (Auto) Baso # (Auto) Immature Gran # (Auto) PT INR APTT PTT Ratio VBG pH VBG pCO2 VBG pO2 VBG HCO3 VBG O2 Saturation VBG Base Excess POC Sodium Sodium 134 L POC Potassium Potassium 5.3 H POC Chloride Chloride 108 H Carbon Dioxide 18 L POC Total CO2 Anion Gap 8 POC Anion Gap POC BUN BUN 72 H Creatinine 4.17 H POC Creatinine Est Cr Clr Drug Dosing 15.3 eGFR 13.97 BUN/Creatinine Ratio 17.3 Glucose 216 H POC Glucose 167 H 237 H POC Glucose (other) Calcium 8.6 POC Ioniz Calcium [place] Phosphorus 4.6 Magnesium 2.1 Iron Transferrin Ferritin Total Bilirubin 1.2 H Direct Bilirubin AST 17 ALT 14 Alkaline Phosphatase 105 H Ammonia Troponin I High Sens Total Protein 5.1 L Albumin 2.7 L Globulin 2.4 L Albumin/Globulin Ratio 1.1 Lipase Vitamin B12 Folate Urine Color Urine Appearance Urine pH Ur Specific [place] Urine Protein Urine Glucose (UA) Urine Ketones Urine Blood Urine Nitrite Urine Bilirubin Urine Urobilinogen Ur Leukocyte Esterase Urine WBC (Auto) Urine RBC (Auto) U Hyaline Cast (Auto) U Epithel Cells (Auto) Urine Bacteria (Auto) Urine Yeast Blood Type Antibody Screen Crossmatch PG Care Time/CCT Total # of Minutes Spent Total Time Spent with Patient: Total time spent is greater than 50% in coordination of care (as documented) at patient's floor/unit and/or counseling patient: Coding Level of Care Code 39150 SUB INP/OBS CARE 3/50MIN Diagnoses Cirrhosis K74.60 Anemia D64.9 GERD (gastroesophageal reflux disease) K21.9
--- NOTE | 2024-07-20 14:45 | Hospitalist Progress Note ---
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 Jean, CKD stage III, anemia, decompensated cirrhosis with marked ascites/esophageal varices/portal gastropathy, history of C. difficile, gastrointestinal bleeding previously on Eliquis and recent EGD with gastric neuroendocrine tumor stage II [follows Dr. linda hooks]. He was sent to the hospital by his oncologist due to his elevated creatinine and low hemoglobin level. He reports falling about 10 days ago [employer] and about 1 day ago [employer] hitting his left arm and left lateral trunk. He denies hitting head or loss of consciousness. He reports not taking his lactulose for about 6 days [employer], and did not have bowel movement for about 3 to 4 days [employer]. His other main complaints are poor sleep, constantly feeling tired for the last couple of years and not feeling rested. He reports overall declining health. He is being managed for the following: Fall: Patient reports falling 10 days ago [employer] and 1 day ago [employer], see above. Admitting C-spine CT/CXR/CT head/pelvic x-ray with no acute finding. Patient reports pain under control. Fall precaution. Cirrhosis decompensated Gastric neuroendocrine tumor Possible GI bleed MELD-Na: 25 on admission EGD prior to this admission on 09/2023 showed large varices banded x 3 and portal HTN gastropathy Underwent EGD 2023 which revealed gastric neuroendocrine tumor stage II - s/p lanreotide x 2 o 05/12/24 and 06/09/24 Outpatient hemoglobin of 7.7. Patient noted to have hemoglobin of 5.9 on 07/19, 2 unit PRBC transfusion ordered. Follow CBC posttransfusion and 8 PM and in AM. Anemia secondary to multifactorial causes including underlying renal disease, possible GI source and other chronic diseases. Aspirin and Eliquis on hold [Last dose at 10 AM of 07/18], continue IV PPI, GI on board. FOBT +ve, c/w conservative Mx. s/p 2 units prbc so far. Transfuse for hemoglobin less than 7 or for symptomatic anemia. Hb 8.4 today. Discussed with patient's hematology Dr. Linda Hooks 07/19, recommends IV iron in addition to blood transfusion. Transfuse IV iron x1 today and pelon. Admitting CTAP with cirrhotic liver and large volume ascites. Patient with no abdominal tenderness on exam, patient/his son does not want any fluid restriction or dietary restriction. IR paracentesis likely on Sunday. Diuretics on hold due to kidney injury.will need IV albumin post paracentesis. Possible UTI: Patient started on Rocephin, continue. Follow admitting urine and blood culture. Acute on Chronic CKD 3 baseline cr 1.7-1.8 Cr. baseline of 1.7, was 4.1 at cancer center, and 4.2 in the ER. Discussed with nephrology, likely secondary to anemia, patient getting blood transfusion, will continue to monitor BMP. Diuretics on hold. Nephrology on board, await further recommendation. Heart failure with recovered EF iso ischemic cardiomyopathy LVEF 30% -->55-60% 2022 CAD status post CABG x3 (PAEZ to LAD, AO to RCA, AO to OM1 05/2021) * Multivessel CAD including mid RCA 90% lesion with mild diffuse disease, 80% occlusion of the proximal LAD with heavily calcified lesion, and 100% CLASSROOM COORDINATOR of left circumflex with [id number] and [id number] collaterals, per cath 05/27/2021 at [facility] cardiac history, with recovered EF% Prior use of KATHI/ARB dc'd due to CKD/AKIContinue Metoprolol succinate 100mg BID Daily weights. 03/25/24: Echo: Mild concentric LVH, EF 55 to 60%, grade 1 Diastolic dysfunction, mild to moderate mitral regurgitation Continue statin Post op afib Hx of CVA -Home eliquis and aspirin on HOLD for possible GI bleed T2DM, insulin dependent last a1c 6.4 ISS with accuchecks, at home on trulicity Monitor and avoid hypoglycemia Hypothyroidism continue synthroid Goals of care discussion: Patient's son and patient both were at bedside. Patient states that he wants his son to be POA, they are working on papers. Patient's son name is Norris Francois Jr. They do not want any dietary restriction or fluid restriction. They want to have palliative care evaluation for guidance/goals of care discussion. Until then they want to continue conservative management for now including telemetry/blood draws/blood transf usion/other noninvasive measures. He is DNR/DNI and they understand the poor prognosis. They are interested in Pleurx catheter for ascites fluid, will have to see if IR here is able to place the catheter or he needs to follow-up with IR as an outpatient. Both paracentesis and palliative care will possibly be available on Sunday. Will continue to manage his pain with focus of comfort in mind and continue to treat him conservatively until further discussion between the family and palliative care. DVT ppx: teds, scds, hold Eliquis for suspected GI bleed Line: PIV x 2 FEN/GI: NPO CODE: FULL Dispo: From home, likely to remain in the hospital x 1-2 days Admission and Anticipated Discharge Date Admission Date: July 18, 2024 Subjective Patient was seen and examined at bedside. Patient was lying in bed, on room air, NAD, resting comfortably. Patient denies chest pain/palpitation/shortness of breath. Denies belly pain. Patient's son Norris present at bedside was also updated on plan of care. Physical Exam Physical Exam: General- oriented x 3, not in distress, speaks in sentences with no effort or accessory muscle use weak, frail, Appears sick. Head- atraumatic Eyes- PERRL, EOMI, anicteric, + pallor ENT- oropharynx clear Neck- supple, no JVD, no adenopathy, no thyromegaly; carotids +2/2, no bruits appreciated Lungs- clear to auscultation bilaterally, no rales/wheezes Heart- normal rate, regular rhythm; (+) grade 3/6 holosystolic murmur, no gallop, no rub appreciated Abdomen- normal bowel sounds, moderately distended, soft, nontender Extremities- grade 1 lower extremity edema, no calf tenderness; peripheral pulses intact (+) small BL knee abrasions Neuro- alert, oriented x 3; CN 2-12 grossly intact; motor 5/5 bilaterally;sens ation 100% on all extremities; no other gross focal neurologic deficits Skin- warm & dry Results & Data Results & Data Vital Signs (Past 12 Hours) Vital Signs Temp Pulse Pulse Resp BP BP Pulse Ox 07/20/24 13:05 92 H 07/20/24 11:28 36.4 C L 86 18 108/68 97 07/20/24 07:16 36.3 C L 78 18 100/63 98 07/20/24 05:35 79 07/20/24 03:18 36.2 C L 79 18 101/62 97 O2 Del Method 07/20/24 13:05 07/20/24 11:28 Room Air 07/20/24 07:16 Room Air 07/20/24 05:35 07/20/24 03:18 Room Air
--- NOTE | 2024-07-20 15:13 | Nephrology Progress Note ---
Date of Service July 20, 2024 Assessment & Plan (1) DELIA (acute kidney injury): Plan: patient with the acute kidney injury on CKD likely ischemic ATN in setting of possible GI bleed and anemia. Admission creatinine of 4.24. Creatinine slightly down to 4.17 today. Creatinine was 2.7 on 05/23/2024. Potassium is slightly high after blood transfusion. no indication for dialysis. - Continue lactulose until we get 2-3 bowel movements a day. This will also help with his hyperkalemia. - If systolic drops below 100, will start albumin 25 g three times daily for 2 days and midodrine 10 three times daily - monitor input output and daily weight - avoid nephrotoxins (2) Anemia: Plan: patient admitted with hemoglobin of 5.9 likely due to GI bleed setting of portal hypertensive gastropathy. patient received 2 units of blood transfusion. Patient was evaluated by GI and is on PPIs. hemoglobin of 8.4 today which is stable. Monitor hemoglobin at least daily to keep above 7 (3) Cirrhosis: Plan: patient with decompensated cirrhosis. Diuretics on hold due to acute renal failure. If renal function does not improve with the blood transfusion, will try HR S treatment as above Admission and Anticipated Discharge Date Admission Date: July 18, 2024 Subjective seen for acute kidney injury and decompensated cirrhosis. Patient had pain last night. Feels better today. No shortness of breath. He got 2 units of blood. Review of Systems 2 Review of Systems: All other systems were reviewed and negative except as noted in HPI Physical Exam 2 Physical Exam: General exam: Appears comfortable, no acute distress HEENT: Pupils are equal and reactive to light Neck: No JVD, neck is supple trachea is midline Respiratory system: Clear breath sounds bilaterally. Gastrointestinal: Abdomen is soft, Moderately distended, non tender, bowel sounds are present CVS: Regular rate and rhythm. No murmurs, rubs or gallops Musculoskeletal: No joint or muscle tenderness Extremities: Non tender, no edema, peripheral pulses are present Neuro: Oriented, no tremors, no focal neurological deficits Skin: No rashes Results & Data Vital Signs (Past 12 Hours) Vital Signs Temp Pulse Pulse Resp BP BP Pulse Ox 07/20/24 13:05 92 H 07/20/24 11:28 36.4 C L 86 18 108/68 97 07/20/24 07:16 36.3 C L 78 18 100/63 98 07/20/24 05:35 79 07/20/24 03:18 36.2 C L 79 18 101/62 97 O2 Del Method 07/20/24 13:05 07/20/24 11:28 Room Air 07/20/24 07:16 Room Air 07/20/24 05:35 07/20/24 03:18 Room Air Laboratory Results 07/20/24 05:33 07/20/24 05:33 WBC 2.94 L RBC 3.39 L MCV 80.2 MCH 24.8 L MCHC 30.9 L RDW Std Deviation 53.3 H RDW Coeff of Lencho 18.2 H Plt Count 68 L Phosphorus 4.6 Albumin 2.7 L
[2024-07-20] MEDS: IRON SUCROSE 400 MG in SODIUM CHLORIDE 0.9% 250 ML IV ONE (15:51)
[2024-07-20 16:20] LABS: BUN Creatinine Ratio 17.2 (10-20); Calcium 8.7 mg/dl (8.6-10.3); Creatinine Clr Calc Pharmacy 15.5 ml/min; Potassium 4.9 mmol/L (3.5-5.1)
[2024-07-20] MEDS: LACTULOSE SYRUP 20 GM/30 ML UDC PO SCH (16:53)
[2024-07-20] MEDS ORDERED: LACTULOSE SYRUP 20 GM/30 ML UDC PO SCH (17:00)
[2024-07-20] MEDS: SODIUM CHLORIDE 0.65% NA SOLN 45 ML (OCEAN) PRN (17:07)
--- NOTE | 2024-07-20 21:26 | Electrocardiogram Report ---
Test Reason : Blood Pressure : */* mmHG Vent. Rate : 74 BPM Atrial Rate : 74 BPM P-R Int : 244 ms QRS Dur : 124 ms QT Int : 440 ms P-R-T Axes : 54 58 29 degrees QTcB Int : 488 ms Sinus rhythm with 1st degree A-V block Right bundle branch block Abnormal ECG When compared with ECG of 24-Mar-2024 04:45, Premature ventricular complexes are no longer Present Confirmed by Kirit Mortensen ([id number]) on 07/20/2024 9:25:51 PM Referred By: REFERRED SELF Confirmed By: Kirit Mortensen
--- NOTE | 2024-07-20 21:27 | Electrocardiogram Report ---
Test Reason : Blood Pressure : */* mmHG Vent. Rate : 79 BPM Atrial Rate : 79 BPM P-R Int : 240 ms QRS Dur : 130 ms QT Int : 402 ms P-R-T Axes : 240 88 28 degrees QTcB Int : 460 ms Poor data quality, interpretation may be adversely affected Sinus rhythm with 1st degree A-V block Right bundle branch block Abnormal ECG When compared with ECG of 18-Jul-2024 15:18, No significant change Confirmed by Kirit Mortensen [id number] on 07/20/2024 9:26:49 PM Referred By: REFERRED SELF Confirmed By: Kirit Mortensen
[2024-07-21] MEDS: ALBUMIN 25% 25 GM/100 ML VIAL IV ONE ×3 (09:01→19:21)
[2024-07-21 09:19] LABS: Hematocrit (blood only) 29.3 % (42.0-52.0); Hemoglobin 9.2 g/dl (14.0-18.0); Mean Corpuscular Hemoglobin 25.1 pg (25.0-34.0); Mean Corpuscular Hgb Conc 31.4 g/dL (32.0-36.0); Mean Corpuscular Volume 80.1 fL (80.0-100.0); Platelet Count 86 K/uL (130-400); RDW Coefficient of Variation 18.6 % (11.5-14.5); RDW Standard Deviation 53.8 fL (36.4-46.3); Red Blood Count 3.66 M/uL (4.70-6.10); White Blood Count 4.57 K/ul (4.8-10.8)
[2024-07-21 09:33] LABS: Albumin Globulin Ratio 1.1 (0.9-2); Albumin Level 2.9 gm/dl (3.4-5.0); BUN Creatinine Ratio 17.6 (10-20); Bilirubin,Total 1.4 mg/dl (0.2-1.0); Globulin 2.7 gm/dl (2.5-4.0); Potassium 4.7 mmol/L (3.5-5.1); Total Protein 5.6 gm/dl (6.0-8.3)
[2024-07-21 09:34] LABS: Albumin Level 2.8 gm/dl (3.4-5.0); BUN Creatinine Ratio 16.6 (10-20); Bilirubin,Total 1.3 mg/dl (0.2-1.0); Creatinine Clr Calc Pharmacy 15.6 ml/min; Globulin 2.8 gm/dl (2.5-4.0); Potassium 4.6 mmol/L (3.5-5.1); Total Protein 5.6 gm/dl (6.0-8.3)
[2024-07-21 09:40] LABS: INR 1.3 (0.9-1.1); Prothrombin Time 14.2 Seconds (9.0-12.0)
--- NOTE | 2024-07-21 11:21 | Nephrology Progress Note ---
Date of Service July 21, 2024 Assessment & Plan (1) DELIA (acute kidney injury): Plan: patient with the acute kidney injury on CKD likely ischemic ATN in setting of possible GI bleed and anemia. Admission creatinine of 4.24. Creatinine very slightly down to 4 today. Creatinine was 2.7 on 05/23/2024, which is already very severely advanced disease in a liver patient. Potassium improved now after blood transfusion. not a candidate for dialysis. - Continue lactulose until we get 2-3 bowel movements a day. - started on albumin 25 g three times daily for 2 days >> will add midodrine 10 three times daily for now; strong consideration/planning underway for hospice though which is in my opinion more appropriate here >given consideration of palliative care, diet/fluid limits lifted - monitor input output and daily weight - avoid nephrotoxins (2) Anemia: Plan: patient admitted with hemoglobin of 5.9 likely due to GI bleed setting of portal hypertensive gastropathy. patient received 2 units of blood transfusion. Patient was evaluated by GI and is on PPIs. hemoglobin of 8.4 today which is stable. Monitor hemoglobin at least daily to keep above 7 (3) Cirrhosis: Plan: patient with decompensated cirrhosis. Diuretics on hold due to acute renal failure. If renal function does not improve with the blood transfusion, consider HRS treatment versus hospice Admission and Anticipated Discharge Date Admission Date: July 18, 2024 Subjective had dose of albumin this am for hypotension and started on standing dose later in the day. very sob w/ activity and weak, had to get up to bathroom just before dinner "and this is a 15 minute procedure" no pain. minimal appetite. decision after family conference this PM for hospice d/c, likely in am Review of Systems 2 Review of Systems: All systems reviewed & are unremarkable except as noted in Subjective Physical Exam 2 Constitutional: well developed, + cachectic and + frail appearing; no acute distress Eyes: EOM intact bilaterally ENMT: Mouth: + dry oral mucous membranes Respiratory: normal respiratory effort Auscultation: + diminished lung sounds (amira BL bases) Cardiovascular: Rate/Rhythm: + tachycardic Heart Sounds: + murmur E xtremities: + edema (1+) Gastrointestinal (Abdomen): Inspection/Auscultation: + abdomen distended and normal bowel sounds Percussion/Palpation: abdomen soft and + ascites; abdomen nontender Musculoskeletal: Extremities: strength 5/5 throughout Skin: no rashes, warm and dry Neurologic: nevarez, fluent speech, no tremor Results & Data Vital Signs (Past 12 Hours) Vital Signs Temp Pulse Pulse Resp BP Pulse Ox O2 Del Method 07/21/24 07:13 36.6 C 117 H 18 106/56 L 96 Room Air 07/21/24 05:55 114 H 07/21/24 03:12 36.7 C 113 H 18 111/68 96 Room Air 07/20/24 23:34 36.5 C 105 H 18 116/69 97 Room Air Laboratory Results 07/21/24 08:36 07/21/24 08:36
--- NOTE | 2024-07-21 12:48 | Gastroenterology Progress Note ---
Date of Service July 21, 2024 Assessment & Plan (1) Cirrhosis: Plan: Patient planned for paracentesis later today for ascites. Patient and son tell me that he is moving towards comfort measures. Case discussed with Dr. Wilson. I have reached out to nephrology to see if they felt patient would benefit from albumin. will continue to monitor. Admission and Anticipated Discharge Date Admission Date: July 18, 2024 Supervising Physician Co-Signing Physician Notes Paracentesis performed tells me about 5 L removed. Understand he is probably for hospice comfort measures only. Await analysis on ascitic fluid. Subjective Patient was seen with his son, Norris at bedside. they met with palliative care this morning and tell me that the goal is the move patient to keeping him comfortable. patient tells me he has been not feeling well for the past 3 years. he is planned for a paracentesis later today. He has followed his GI care in the past with Dr. Ya at [facility]. bowels are moving again now that he is back on lactulose. admits he wasn't using at home. no other GI concerns. Review of Systems Review of Systems: All systems reviewed & are unremarkable except as noted in HPI & below Physical Exam Constitutional: WD/WN, vitals as above Respiratory: normal respiratory effort, lungs clear to auscultation Cardiovascular: Rate/Rhythm: regular rate and regular rhythm Gastrointestinal (Abdomen): abdomen distended. ascites noted. not tense. normal bowel sounds. nontender. Psychiatric: Orientation: alert and oriented x 3 Affect: euthymic affect Results & Data Results & Data Vital Signs (Past 12 Hours) Vital Signs Temp Pulse Pulse Resp BP Pulse Ox O2 Del Method 07/21/24 11:13 97.3 F L 104 H 19 108/66 97 Room Air 07/21/24 07:13 97.9 F 117 H 18 106/56 L 96 Room Air 07/21/24 05:55 114 H 07/21/24 03:12 98.1 F 113 H 18 111/68 96 Room Air Coding Level of Care Code 58278 SUB INP/OBS CARE 08/02MIN Diagnoses Cirrhosis K74.60
--- NOTE | 2024-07-21 15:36 | Ultrasound Report ---
Ultrasound guided paracentesis. Clinical indication: ascites. Procedure: Procedure and risks were explained. Informed consent was obtained from the patient. A fin al timeout was completed. Sonographic examination revealed a moderate amount of ascites. A pocket wa s identified in the left lower quadrant. The abdomen was prepped and draped in sterile fashion. 1% li docaine was utilized for skin anesthesia. Utilizing ultrasound guidance, a 5 [place] safety centesis c atheter was introduced into the pocket of ascites and 5000 ml of yellow fluid drained with 1 L sent t o the lab. Ultrasound images were obtained. The catheter was removed and Band-Aid applied. The patie nt tolerated the procedure well. Vital signs will be monitored prior to discharge. IMPRESSION: Ultrasound guided paracentesis as described above. Performed, dictated, and signed by Fabián Clayton PA-C; to be co-signed by Dr. Dominic Beth. Electronically signed by: Dominic Beth M.D. 07/21/2024 3:51 PM
--- NOTE | 2024-07-21 16:25 | Hospitalist Progress Note ---
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 Jean, CKD stage III, anemia, decompensated cirrhosis with marked ascites/esophageal varices/portal gastropathy, history of C. difficile, gastrointestinal bleeding previously on Eliquis and recent EGD with gastric neuroendocrine tumor stage II [follows Dr. linda hooks]. He was sent to the hospital by his oncologist due to his elevated creatinine and low hemoglobin level. He reports falling about 10 days ago CONSTRUCTION MGR and about 1 day ago CONSTRUCTION MGR hitting his left arm and left lateral trunk. He denies hitting head or loss of consciousness. He reports not taking his lactulose for about 6 days CONSTRUCTION MGR, and did not have bowel movement for about 3 to 4 days CONSTRUCTION MGR. His other main complaints are poor sleep, constantly feeling tired for the last couple of years and not feeling rested. He reports overall declining health. He is being managed for the following: Fall: Patient reports falling 10 days ago CONSTRUCTION MGR and 1 day ago CONSTRUCTION MGR, see above. Admitting C-spine CT/CXR/CT head/pelvic x-ray with no acute finding. Patient reports pain under control. Fall precaution. Cirrhosis decompensated Gastric neuroendocrine tumor Possible GI bleed MELD-Na: 25 on admission EGD prior to this admission on 09/2023 showed large varices banded x 3 and portal HTN gastropathy Underwent EGD 2023 which revealed gastric neuroendocrine tumor stage II - s/p lanreotide x 2 o 05/12/24 and 06/09/24 Outpatient hemoglobin of 7.7. Patient noted to have hemoglobin of 5.9 on 07/19, s/p 2 Units prbc and IV iron 07/20, Hb has be stable > 8.5. Anemia secondary to multifactorial causes including underlying renal disease, possible GI source and other chronic diseases. Aspirin and Eliquis on hold [Last dose at 10 AM of 07/18], continue IV PPI, GI on board. FOBT +ve, c/w conservative Mx. s/p 2 units prbc so far w/ stable HnH. Transfuse for hemoglobin less than 7 or for symptomatic anemia. Discussed with patient's hematology Dr. Linda Hooks 07/19, recommends IV iron in addition to blood transfusion. Admitting CTAP with cirrhotic liver and large volume ascites. Patient with no abdominal tenderness on exam, patient/his son does not want any fluid restriction or dietary restriction. Status post paracentesis 07/21, 5 L fluid taken out, follow-up studies. IV albumin john-paracentesis. Possible UTI: Patient started on Rocephin at presentation, UCx no growth, dc rocephin 07/21. Follow admitting blood culture. Acute on Chronic CKD 3 baseline cr 1.7-1.8 Cr. baseline of 1.7, was 4.1 at cancer center, and 4.2 in the ER. Diuretics on hold. Nephrology on board, appreciate recommendation. Heart failure with recovered EF iso ischemic cardiomyopathy LVEF 30% -->55-60% 2022 CAD status post CABG x3 (PAEZ to LAD, AO to RCA, AO to OM1 05/2021) * Multivessel CAD including mid RCA 90% lesion with mild diffuse disease, 80% occlusion of the proximal LAD with heavily calcified lesion, and 100% HELIC[employer] of left circumflex with [id number] and [id number] collaterals, per cath 05/27/2021 at [facility] cardiac history, with recovered EF% Prior use of AC E/ARB dc'd due to CKD/AKIContinue Metoprolol succinate 100mg BID Daily weights. 03/25/24: Echo: Mild concentric LVH, EF 55 to 60%, grade 1 Diastolic dysfunction, mild to moderate mitral regurgitation Continue statin Post op afib Hx of CVA -Home eliquis and aspirin on HOLD for possible GI bleed T2DM, insulin dependent last a1c 6.4 ISS with accuchecks, at home on trulicity Monitor and avoid hypoglycemia Hypothyroidism continue synthroid Goals of care discussion: Patient's son and patient both were at bedside. Patient states that he wants his son to be POA, they are working on papers. Patient's son name is Norris Francois Jr. They do not want any dietary restriction or fluid restriction. They want to have palliative care evaluation for guidance/goals of care discussion. Until then they want to continue conservative management for now including telemetry/blood draws/blood transfusion/other noninvasive measures. He is DNR/DNI and they understand the poor prognosis. They are interested in Pleurx catheter for ascites fluid, will have to see if IR here is able to place the catheter or he needs to follow-up with IR as an outpatient. No pleurx cath available inhospital. Pt will have to f/u w/ IR as OP. d/w palliativ care 07/21, pt would like to go home w/ hospice likely [facility] once medically feasible. Will continue to manage his pain with focus of comfort in mind and continue to treat him conservatively until dc to home w/ hospice. DVT ppx: teds, scds, hold Eliquis for suspected GI bleed Line: PIV x 2 FEN/GI: NPO CODE: FULL Dispo: From home, likely dc [facility] to home w/ hospice. Admission and Anticipated Discharge Date Admission Date: July 18, 2024 Subjective Patient was seen and examined at bedside. Patient was lying in bed, on room air, NAD, resting comfortably. Patient denies chest pain/palpitation/shortness of breath. Denies belly pain. Patient is now moving bowels on lactulose. Patient's son Norris present at bedside was also updated on plan of care. They are awaiting palliative care team for discussion regarding goals of care/hospice. Physical Exam Physical Exam: General- oriented x 3, not in distress, speaks in sentences with no effort or accessory muscle use weak, frail, Appears sick. Head- atraumatic Eyes- PERRL, EOMI, anicteric, + pallor ENT- oropharynx clear Neck- supple, no JVD, no adenopathy, no thyromegaly; carotids +2/2, no bruits appreciated Lungs- clear to auscultation bilaterally, no rales/wheezes Heart- normal rate, regular rhythm; (+) grade 3/6 holosystolic murmur, no gallop, no rub appreciated Abdomen- normal bowel sounds, moderately distended, soft, nontender Extremities- grade 1 lower extremity edema, no calf tenderness; peripheral pulses intact (+) small BL knee abrasions Neuro- alert, oriented x 3; CN 2-12 grossly intact; motor 5/5 bilaterally;sensation 100% on all extremities; no other gross focal neurologic deficits Skin- warm & dry Results & Data Results & Data Vital Signs (Past 12 Hours) Vital Signs Temp Pulse Pulse Resp BP Pulse Ox O2 Del Method 07/21/24 13:00 100 H 07/21/24 11:13 36.3 C L 104 H 19 108/66 97 Room Air 07/21/24 07:13 36.6 C 117 H 18 106/56 L 96 Room Air 07/21/24 05:55 114 H
[2024-07-21] MEDS: ALBUMIN 25% 25 GM/100 ML VIAL IV SCH (17:57)
--- NOTE | 2024-07-21 17:57 | Palliative Care Consultation ---
Date of Consultation July 21, 2024 Assessment & Plan (1) Recurrent falls: (2) Abdominal pain, generalized: (3) Advanced care planning/counseling discussion: A 60min face to face ACP was held with pt and son at bedside A lengthy discussion around his decline, progressive ESLD and expectations/goals was held. he is acutely aware he has ESLD He does not want to be away from home He worries about how much his can handle. Both he and his son share has signif anxiety and "she couldn't handle this discussion so that is why she did not come today, she does not want to hear it." She has ability to provide some comfort/food/meds but not physical care. We spoke about hospice and what it offers we spoke about standard home health and how it differs from hospice He reaffirms DNR/DNI and they agree that they would like home with hospice and select [facility] as their Agency They would like to see how he does with paracentesis today. he has been NPO since yesterday and tells me he is starving and asks to eat. I asked IR who advised he is ok for PO/does not need to be NPO for paracentesis and est time for procedure will be after 330pm. (4) Palliative care by specialist: Introduced Palliative Medicine and explained our role in patient's care. Patient and/or family were receptive to palliative services for goals of care discussions. Reviewed we are different from hospice, a home health nurse visiting service. (5) Encounter for hospice care discussion: I provided education about the hospice benefit: an interdisciplinary program offered by nurses, nurses aides, social workers, chaplains and a medical lab tech instructor for patients with a terminal condition and a life expectancy of less than 6 months. This is covered by Medicare at 100%/no out of pocket expense to patient and all meds/supplies needed by patient for the reason they are on hospice are paid for/covered by hospice. The goal is assure quality of life of the patient in their home setting (home, fpc, inpatient hospice setting) by providing symptoms management, psychosocial and spiritual support. However, they cannot offer 24 hours care and if the family is unable to provide that care, they will have to consider personal care with out of pocket cost vs. fpc placement. We discussed the goals of hospice as a patient service and the goals of care; we discussed EOL trajectories and transitions amira the emotional impact of realizing mortality as a concrete reality from prior abstract considerations. Pt was reassured that no matter where they are along this trajectory, they are not alone - their medical team will remain by their side through their journey. Discussed the pros/cons of accepting help when especially weakened and distressed by pain-which would also help provide relief/decrease caregiver burden/strain. Plan As outlined above once stable, dc home with [facility] If he needs an Aspira, would need to have this done before he enrolls in hospice. Son and pt aware/verbalized understanding. he underwent paracentesis earlier today, +5L tapped He is willing to try Gelatein, asked nutrition team to add to meals I will continue to follow Thank you for allowing us to participate in the ongoing care of this patient. Please page with any additional concerns. Charles Holliday DNP Director, Palliative Medicine History of Present Illness Reason for Consultation: GOC,hospice Attending Physician: Basil Lew MD History of Present Illness 78yo male with ESLD admitted with progressive ascites, gen weakness, falls at home Son Oscar Og at bedside noted pt unable to get up from seat/toilet Pt lives at home with his who also has medical struggles incl signif coronary and carotid disease She is IADLs but does not have the strength to care for him They live in a rental home in [place] with 2 stories, beds and bath are upstairs, half bath on main floor. Until recently he was able to take the stairs Son is very supportive but has to occ travel for work In general pt states he has been dwindling he knows he has adv liver failure he tells me there is no cure for his disease and "nothing that's going to make it dramatically better, I know i'm coming to the end here" He is not interested in more rehab Son notes he fired home health nurses and PT previously but is now more agreeable to help at home if it is how he can return home and stay there Allergies Allergy/AdvReac Type Severity Reaction Status Date / Time Sulfa (Sulfonamide Allergy Unknown CHILDHOOD Verified 09/13/23 08:32 Antibiotics) ALLERGY--CAN'T REMEMBER tramadol AdvReac Severe SEVERE Verified 09/13/23 08:32 VOMITING omeprazole AdvReac Intermediate PER PT Verified 09/13/23 08:32 "DID THE OPPOSITE, MADE ME WORSE". Home Medications Medication Instructions Recorded Confirmed Type nitroglycerin 0.4 mg sublingual 0.4 mg sublingual DIRECTED PRN 11/08/21 07/18/24 History tablet (Nitrostat) Chest Pain apixaban 5 mg tablet (Eliquis) 5 mg PO BID #60 tabs 04/02/24 07/18/24 Rx ascorbic acid (vitamin C) 500 mg 500 mg PO QAM #30 tabs 04/02/24 07/18/24 Rx tablet (Vitamin C) aspirin 81 mg tablet,delayed 81 mg PO 3XWK 30 days #14 tabs 04/02/24 07/18/24 Rx release atorvastatin 40 mg tablet 40 mg PO QAM #30 tabs 04/02/24 07/18/24 Rx cholecalciferol (vitamin D3) 50 50 mcg PO QAM #30 caps 04/02/24 07/18/24 Rx mcg (2,000 unit) capsule (Vitamin D3) dulaglutide 1.5 mg/0.5 mL 3 mg subcut WK 1 month #2 mL 04/02/24 07/18/24 Rx subcutaneous pen injector (Trulicity) furosemide 20 mg tablet 20 mg PO QAM #30 tabs 04/02/24 07/18/24 Rx insulin glargine 100 unit/mL (3 38 unit (0.38 mL) subcut HS #15 mL 04/02/24 07/18/24 Rx mL) subcutaneous pen levothyroxine 88 mcg tablet 88 mcg PO DAILYBB #30 tabs 04/02/24 07/18/24 Rx metoprolol succinate 100 mg 100 mg PO BID 30 days #60 tabs 04/02/24 07/18/24 Rx tablet,extended release 24 hr ondansetron HCl 4 mg tablet 4 mg PO Q8H PRN Nausea #10 tabs 04/02/24 07/18/24 Rx spironolactone 50 mg tablet 50 mg PO DAILY #30 tabs 04/02/24 07/18/24 Rx Patient History Medical History Cirrhosis of liver with ascites Generalized weakness DELIA (acute kidney injury) Acute GI bleeding Esophageal varices Incomplete emptying of bladder Cirrhosis of liver with ascites states has to have a paracentesis done CAD (coronary artery disease) Multivessel CAD including mid RCA 90% lesion with mild diffuse disease, 80% occlusion of the proximal LAD with heavily calcified lesion, and 100% 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 with [id number] and jwlkz-rw-[id number] collaterals, per cath 05/27/2021 at [facility] [place] Status post CABG x3 (PAEZ to LAD, AO to RCA, AO to OM1) with and the graphic saphenous vein harvest, 05/30/2021 DELIA (acute kidney injury) Chylothorax Ischemic cardiomyopathy LVEF 30% post CABG; GRADE I diastolic dysfunction, NYHA class 2 Hypothyroid Diabetes mellitus IDDM Hyperlipidemia Hypertension Carotid artery stenosis Atrial fibrillation post operative CABG 2020, denies current 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 Osteoarthritis History of kidney stones stents placed and removed Stroke patient denies CKD (chronic kidney disease) stage 3, GFR 30-59 ml/min TIA (transient ischemic attack) in [place] prior to 2020 AND post operatively 2020 [facility] [place], no deficits 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, months of abtx---no antibiotics currently Surgical History Hx of cystoscopy w/ stent - 09/20/22 Hx of cardiac catheterization 05/2021 Hx of colonoscopy History of esophagogastroduodenoscopy (EGD) Hx of chest tube placement Hx of cholecystectomy History of coronary artery bypass graft CABG x 3 (PAEZ -LAD; AO-RCA; AO-OM1 w/ graphic SVG on 05/30/2021 Family History Other Heart disease Social History Smoking Status: Former smoker Tobacco Type: Cigarettes packs per day: 1; Cigarettes Per Day: quit ~ 30 yrs ago; Second Hand Exposure: No; Do You Dip or Chew Tobacco: No; Tobacco Cessation Education Requested by Patient: No Hx Alcohol Use: No Hx Substance Use: No Preferred Language: Portuguese Communication Ability: Effective Visual Impairment: No Limitations Ophthalmic Asst Required: No Beliefs That Will Affect Care: None Current Living Situation: Spouse Other Information That Helps Us Care for You: No Feels Safe at Home: Yes Safety Concerns: Feels Safe At This Time Assistive Devices: Walker Assistive Devices Comment: pt uses furniture to walk but can not walk more than 6-8 ft Review of Systems Review of Systems: All systems reviewed & are unremarkable except as noted in Subjective Physical Exam Physical Exam: Frail, cachectic elderly male bitemp wasting dentition poor neck supple limited ROM/chronic pain to neck resp effort sl increased with +conversational dyspnea lungs dim no overt wheeze no stridor abd signif distended, +ascites, +fluid shift Gen weakness AAOx3 Skin diaphoretic/waxy, pale Results & Data Vital Signs (Past 12 Hours) Vital Signs Temp Pulse Pulse Resp BP Pulse Ox O2 Del Method 07/21/24 15:30 36.4 C L 100 H 18 102/62 100 Room Air 07/21/24 13:00 100 H 07/21/24 11:13 36.3 C L 104 H 19 108/66 97 Room Air 07/21/24 07:13 36.6 C 117 H 18 106/56 L 96 Room Air 07/21/24 05:55 114 H Laboratory Results 07/21/24 07/21/24 07/21/24 Range/Units Unknown 16:32 11:16 WBC (4.8-10.8) K/ul RBC (4.70-6.10) M/uL Hgb (14.0-18.0) g/dl POC Hgb (14.0-18.0) g/dl Hct (42.0-52.0) % POC Hct (42-52) % MCV (80.0-100.0) fL MCH (25.0-34.0) pg MCHC (32.0-36.0) g/dL RDW Std Deviation (36.4-46.3) fL RDW Coeff of Lencho (11.5-14.5) % Plt Count (130-400) K/uL MPV (9.4-12.4) fL Immature Gran % (Auto) % Neut % (Auto) % Lymph % (Auto) % [place] % (Auto) % Eos % (Auto) % Baso % (Auto) % Neut # (Auto) (1.40-6.50) K/uL Lymph # (Auto) (1.20-3.40) K/uL [place] # (Auto) (0.11-0.59) K/uL Eos # (Auto) (0.00-0.50) K/uL Baso # (Auto) (0.00-0.20) K/uL Immature Gran # (Auto) (0.01-0.20) K/uL PT (9.0-12.0) Seconds INR (0.9-1.1) APTT (21-31) Seconds PTT Ratio VBG pH (7.36-7.41) VBG pCO2 (38-50) mmHg VBG pO2 mmHg VBG HCO3 mmol/L VBG O2 Saturation % VBG Base Excess mEq/L POC Sodium (135-144) mmol/L Sodium (136-145) mmol/L POC Potassium (3.3-5.0) mmol/L Potassium (3.5-5.1) mmol/L POC Chloride (101-112) mmol/L Chloride (98-107) mmol/L Carbon Dioxide (21-32) mmol/L POC Total CO2 (24-31) mmol/L Anion Gap (3-11) POC Anion Gap (16-25) mmol/L POC BUN (7-18) mg/dl BUN (6-23) mg/dl Creatinine (0.6-1.4) mg/dl POC Creatinine (0.6-1.3) mg/dl Est Cr Clr Drug Dosing ml/min eGFR BUN/Creatinine Ratio (10-20) Glucose (70-99(Fasting)) mg/dl POC Glucose 220 H 228 H (70-99) mg/dl POC Glucose (other) (70-99) mg/dl Calcium (8.6-10.3) mg/dl POC Ioniz Calcium Annetta (1.12-1.32) mmol/l Phosphorus (2.5-4.9) mg/dl Magnesium (1.7-2.4) mg/dl Iron (35-175) mcg/dl Transferrin (200-360) mg/dl Ferritin (8-388) ng/ml Total Bilirubin (0.2-1.0) mg/dl Direct Bilirubin (0-0.2) mg/dl AST (13-39) U/L ALT (7-52) U/L Alkaline Phosphatase (34-104) U/L Ammonia (18-72) umol/L Troponin I High Sens (0-20) pg/ml Total Protein (6.0-8.3) gm/dl Albumin (3.4-5.0) gm/dl Globulin (2.5-4.0) gm/dl Albumin/Globulin Ratio (0.9-2) Lipase (11-82) U/L Vitamin B12 (180-914) pg/ml Folate (>5.38) ng/ml Urine Color Urine Appearance (Clear) Urine pH (4.5-7.5) Ur Specific Baggs (1.000-1.030) Urine Protein (Negative) Urine Glucose (UA) (Negative) Urine Ketones (Negative) Urine Blood (Negative) Urine Nitrite (Negative) Urine Bilirubin (Negative) Urine Urobilinogen (Negative) Ur Leukocyte Esterase (Negative) Urine WBC (Auto) (0-5) /hpf Urine RBC (Auto) (0-2) /hpf U Hyaline Cast (Auto) (0-2) /lpf U Epithel Cells (Auto) (0-2) /hpf Urine Bacteria (Auto) (None Seen) Urine Yeast (None Prsent) Fluid Neutrophils % Pending Fluid Comment Peritoneal Color Pending Peritoneal Appearance Pending Peritoneal Albumin < 1.5 gm/dl Stool Occult Bld Scrn (Negative) Misc Micro Test Blood Type Antibody Screen Crossmatch 07/21/24 07/21/24 07/21/24 Range/Units 08:36 08:36 08:36 WBC (4.8-10.8) K/ul RBC (4.70-6.10) M/uL Hgb (14.0-18.0) g/dl POC Hgb (14.0-18.0) g/dl Hct (42.0-52.0) % POC Hct (42-52) % MCV (80.0-100.0) fL MCH (25.0-34.0) pg MCHC (32.0-36.0) g/dL RDW Std Deviation (36.4-46.3) fL RDW Coeff of Lencho (11.5-14.5) % Plt Count (130-400) K/uL MPV (9.4-12.4) fL Immature Gran % (Auto) % Neut % (Auto) % Lymph % (Auto) % [place] % (Auto) % Eos % (Auto) % Baso % (Auto) % Neut # (Auto) (1.40-6.50) K/uL Lymph # (Auto) (1.20-3.40) K/uL [place] # (Auto) (0.11-0.59) K/uL Eos # (Auto) (0.00-0.50) K/uL Baso # (Auto) (0.00-0.20) K/uL Immature Gran # (Auto) (0.01-0.20) K/uL PT (9.0-12.0) Seconds INR (0.9-1.1) APTT (21-31) Seconds PTT Ratio VBG pH (7.36-7.41) VBG pCO2 (38-50) mmHg VBG pO2 mmHg VBG HCO3 mmol/L VBG O2 Saturation % VBG Base Excess mEq/L POC Sodium (135-144) mmol/L Sodium (136-145) mmol/L POC Potassium (3.3-5.0) mmol/L Potassium (3.5-5.1) mmol/L POC Chloride (101-112) mmol/L Chloride (98-107) mmol/L Carbon Dioxide (21-32) mmol/L POC Total CO2 (24-31) mmol/L Anion Gap (3-11) POC Anion Gap (16-25) mmol/L POC BUN (7-18) mg/dl BUN (6-23) mg/dl Creatinine (0.6-1.4) mg/dl POC Creatinine (0.6-1.3) mg/dl Est Cr Clr Drug Dosing ml/min eGFR BUN/Creatinine Ratio (10-20) Glucose (70-99(Fasting)) mg/dl POC Glucose (70-99) mg/dl POC Glucose (other) (70-99) mg/dl Calcium (8.6-10.3) mg/dl POC Ioniz Calcium Annetta (1.12-1.32) mmol/l Phosphorus (2.5-4.9) mg/dl Magnesium (1.7-2.4) mg/dl Iron (35-175) mcg/dl Transferrin (200-360) mg/dl Ferritin (8-388) ng/ml Total Bilirubin (0.2-1.0) mg/dl Direct Bilirubin (0-0.2) mg/dl AST (13-39) U/L ALT (7-52) U/L Alkaline Phosphatase (34-104) U/L Ammonia (18-72) umol/L Troponin I High Sens (0-20) pg/ml Total Protein (6.0-8.3) gm/dl Albumin 2.8 L (3.4-5.0) gm/dl Globulin 2.8 2.7 (2.5-4.0) gm/dl Albumin/Globulin Ratio 1.0 1.1 (0.9-2) Lipase (11-82) U/L Vitamin B12 (180-914) pg/ml Folate (>5.38) ng/ml Urine Color Urine Appearance (Clear) Urine pH (4.5-7.5) Ur Specific Baggs (1.000-1.030) Urine Protein (Negative) Urine Glucose (UA) (Negative) Urine Ketones (Negative) Urine Blood (Negative) Urine Nitrite (Negative) Urine Bilirubin (Negative) Urine Urobilinogen (Negative) Ur Leukocyte Esterase (Negative) Urine WBC (Auto) (0-5) /hpf Urine RBC (Auto) (0-2) /hpf U Hyaline Cast (Auto) (0-2) /lpf U Epithel Cells (Auto) (0-2) /hpf Urine Bacteria (Auto) (None Seen) Urine Yeast (None Prsent) Fluid Neutrophils % Fluid Comment Peritoneal Color Peritoneal Appearance Peritoneal Albumin gm/dl Stool Occult Bld Scrn (Negative) Misc Micro Test Blood Type Antibody Screen Crossmatch 07/21/24 07/21/24 07/21/24 Range/Units 08:36 08:36 08:36 WBC (4.8-10.8) K/ul RBC (4.70-6.10) M/uL Hgb (14.0-18.0) g/dl POC Hgb (14.0-18.0) g/dl Hct (42.0-52.0) % POC Hct (42-52) % MCV (80.0-100.0) fL MCH (25.0-34.0) pg MCHC (32.0-36.0) g/dL RDW Std Deviation (36.4-46.3) fL RDW Coeff of Lencho (11.5-14.5) % Plt Count (130-400) K/uL MPV (9.4-12.4) fL Immature Gran % (Auto) % Neut % (Auto) % Lymph % (Auto) % [place] % (Auto) % Eos % (Auto) % Baso % (Auto) % Neut # (Auto) (1.40-6.50) K/uL Lymph # (Auto) (1.20-3.40) K/uL [place] # (Auto) (0.11-0.59) K/uL Eos # (Auto) (0.00-0.50) K/uL Baso # (Auto) (0.00-0.20) K/uL Immature Gran # (Auto) (0.01-0.20) K/uL PT (9.0-12.0) Seconds INR (0.9-1.1) APTT (21-31) Seconds PTT Ratio VBG pH (7.36-7.41) VBG pCO2 (38-50) mmHg VBG pO2 mmHg VBG HCO3 mmol/L VBG O2 Saturation % VBG Base Excess mEq/L POC Sodium (135-144) mmol/L Sodium (136-145) mmol/L POC Potassium (3.3-5.0) mmol/L Potassium (3.5-5.1) mmol/L POC Chloride (101-112) mmol/L Chloride (98-107) mmol/L Carbon Dioxide (21-32) mmol/L POC Total CO2 (24-31) mmol/L Anion Gap (3-11) POC Anion Gap (16-25) mmol/L POC BUN (7-18) mg/dl BUN (6-23) mg/dl Creatinine (0.6-1.4) mg/dl POC Creatinine (0.6-1.3) mg/dl Est Cr Clr Drug Dosing ml/min eGFR BUN/Creatinine Ratio (10-20) Glucose (70-99(Fasting)) mg/dl POC Glucose (70-99) mg/dl POC Glucose (other) (70-99) mg/dl Calcium (8.6-10.3) mg/dl POC Ioniz Calcium Annetta (1.12-1.32) mmol/l Phosphorus (2.5-4.9) mg/dl Magnesium (1.7-2.4) mg/dl Iron (35-175) mcg/dl Transferrin (200-360) mg/dl Ferritin (8-388) ng/ml Total Bilirubin (0.2-1.0) mg/dl Direct Bilirubin (0-0.2) mg/dl AST (13-39) U/L ALT 18 (7-52) U/L Alkaline Phosphatase 164 H 162 H (34-104) U/L Ammonia (18-72) umol/L Troponin I High Sens (0-20) pg/ml Total Protein 5.6 L 5.6 L (6.0-8.3) gm/dl Albumin 2.9 L (3.4-5.0) gm/dl Globulin (2.5-4.0) gm/dl Albumin/Globulin Ratio (0.9-2) Lipase (11-82) U/L Vitamin B12 (180-914) pg/ml Folate (>5.38) ng/ml Urine Color Urine Appearance (Clear) Urine pH (4.5-7.5) Ur Specific Baggs (1.000-1.030) Urine Protein (Negative) Urine Glucose (UA) (Negative) Urine Ketones (Negative) Urine Blood (Negative) Urine Nitrite (Negative) Urine Bilirubin (Negative) Urine Urobilinogen (Negative) Ur Leukocyte Esterase (Negative) Urine WBC (Auto) (0-5) /hpf Urine RBC (Auto) (0-2) /hpf U Hyaline Cast (Auto) (0-2) /lpf U Epithel Cells (Auto) (0-2) /hpf Urine Bacteria (Auto) (None Seen) Urine Yeast (None Prsent) Fluid Neutrophils % Fluid Comment Peritoneal Color Peritoneal Appearance Peritoneal Albumin gm/dl Stool Occult Bld Scrn (Negative) Misc Micro Test Blood Type Antibody Screen Crossmatch 07/21/24 07/21/24 07/21/24 Range/Units 08:36 08:36 08:36 WBC (4.8-10.8) K/ul RBC (4.70-6.10) M/uL Hgb (14.0-18.0) g/dl POC Hgb (14.0-18.0) g/dl Hct (42.0-52.0) % POC Hct (42-52) % MCV (80.0-100.0) fL MCH (25.0-34.0) pg MCHC (32.0-36.0) g/dL RDW Std Deviation (36.4-46.3) fL RDW Coeff of Lencho (11.5-14.5) % Plt Count (130-400) K/uL MPV (9.4-12.4) fL Immature Gran % (Auto) % Neut % (Auto) % Lymph % (Auto) % [place] % (Auto) % Eos % (Auto) % Baso % (Auto) % Neut # (Auto) (1.40-6.50) K/uL Lymph # (Auto) (1.20-3.40) K/uL [place] # (Auto) (0.11-0.59) K/uL Eos # (Auto) (0.00-0.50) K/uL Baso # (Auto) (0.00-0.20) K/uL Immature Gran # (Auto) (0.01-0.20) K/uL PT (9.0-12.0) Seconds INR (0.9-1.1) APTT (21-31) Seconds PTT Ratio VBG pH (7.36-7.41) VBG pCO2 (38-50) mmHg VBG pO2 mmHg VBG HCO3 mmol/L VBG O2 Saturation % VBG Base Excess mEq/L POC Sodium (135-144) mmol/L Sodium (136-145) mmol/L POC Potassium (3.3-5.0) mmol/L Potassium (3.5-5.1) mmol/L POC Chloride (101-112) mmol/L Chloride (98-107) mmol/L Carbon Dioxide (21-32) mmol/L POC Total CO2 (24-31) mmol/L Anion Gap (3-11) POC Anion Gap (16-25) mmol/L POC BUN (7-18) mg/dl BUN (6-23) mg/dl Creatinine (0.6-1.4) mg/dl POC Creatinine (0.6-1.3) mg/dl Est Cr Clr Drug Dosing ml/min eGFR BUN/Creatinine Ratio (10-20) Glucose (70-99(Fasting)) mg/dl POC Glucose (70-99) mg/dl POC Glucose (other) (70-99) mg/dl Calcium 9.0 (8.6-10.3) mg/dl POC Ioniz Calcium Annetta (1.12-1.32) mmol/l Phosphorus (2.5-4.9) mg/dl Magnesium (1.7-2.4) mg/dl Iron (35-175) mcg/dl Transferrin (200-360) mg/dl Ferritin (8-388) ng/ml Total Bilirubin 1.3 H 1.4 H (0.2-1.0) mg/dl Direct Bilirubin (0-0.2) mg/dl AST 24 25 (13-39) U/L ALT 19 (7-52) U/L Alkaline Phosphatase (34-104) U/L Ammonia (18-72) umol/L Troponin I High Sens (0-20) pg/ml Total Protein (6.0-8.3) gm/dl Albumin (3.4-5.0) gm/dl Globulin (2.5-4.0) gm/dl Albumin/Globulin Ratio (0.9-2) Lipase (11-82) U/L Vitamin B12 (180-914) pg/ml Folate (>5.38) ng/ml Urine Color Urine Appearance (Clear) Urine pH (4.5-7.5) Ur Specific Baggs (1.000-1.030) Urine Protein (Negative) Urine Glucose (UA) (Negative) Urine Ketones (Negative) Urine Blood (Negative) Urine Nitrite (Negative) Urine Bilirubin (Negative) Urine Urobilinogen (Negative) Ur Leukocyte Esterase (Negative) Urine WBC (Auto) (0-5) /hpf Urine RBC (Auto) (0-2) /hpf U Hyaline Cast (Auto) (0-2) /lpf U Epithel Cells (Auto) (0-2) /hpf Urine Bacteria (Auto) (None Seen) Urine Yeast (None Prsent) Fluid Neutrophils % Fluid Comment Peritoneal Color Peritoneal Appearance Peritoneal Albumin gm/dl Stool Occult Bld Scrn (Negative) Misc Micro Test Blood Type Antibody Screen Crossmatch 07/21/24 07/21/24 07/21/24 Range/Units 08:36 08:36 08:36 WBC (4.8-10.8) K/ul RBC (4.70-6.10) M/uL Hgb (14.0-18.0) g/dl POC Hgb (14.0-18.0) g/dl Hct (42.0-52.0) % POC Hct (42-52) % MCV (80.0-100.0) fL MCH (25.0-34.0) pg MCHC (32.0-36.0) g/dL RDW Std Deviation (36.4-46.3) fL RDW Coeff of Lencho (11.5-14.5) % Plt Count (130-400) K/uL MPV (9.4-12.4) fL Immature Gran % (Auto) % Neut % (Auto) % Lymph % (Auto) % [place] % (Auto) % Eos % (Auto) % Baso % (Auto) % Neut # (Auto) (1.40-6.50) K/uL Lymph # (Auto) (1.20-3.40) K/uL [place] # (Auto) (0.11-0.59) K/uL Eos # (Auto) (0.00-0.50) K/uL Baso # (Auto) (0.00-0.20) K/uL Immature Gran # (Auto) (0.01-0.20) K/uL PT (9.0-12.0) Seconds INR (0.9-1.1) APTT (21-31) Seconds PTT Ratio VBG pH (7.36-7.41) VBG pCO2 (38-50) mmHg VBG pO2 mmHg VBG HCO3 mmol/L VBG O2 Saturation % VBG Base Excess mEq/L POC Sodium (135-144) mmol/L Sodium (136-145) mmol/L POC Potassium (3.3-5.0) mmol/L Potassium (3.5-5.1) mmol/L POC Chloride (101-112) mmol/L Chloride (98-107) mmol/L Carbon Dioxide (21-32) mmol/L POC Total CO2 (24-31) mmol/L Anion Gap (3-11) POC Anion Gap (16-25) mmol/L POC BUN (7-18) mg/dl BUN (6-23) mg/dl Creatinine (0.6-1.4) mg/dl POC Creatinine (0.6-1.3) mg/dl Est Cr Clr Drug Dosing ml/min eGFR 14.30 BUN/Creatinine Ratio 16.6 17.6 (10-20) Glucose 226 H 229 H (70-99(Fasting)) mg/dl POC Glucose (70-99) mg/dl POC Glucose (other) (70-99) mg/dl Calcium 9.0 (8.6-10.3) mg/dl POC Ioniz Calcium Annetta (1.12-1.32) mmol/l Phosphorus (2.5-4.9) mg/dl Magnesium (1.7-2.4) mg/dl Iron (35-175) mcg/dl Transferrin (200-360) mg/dl Ferritin (8-388) ng/ml Total Bilirubin (0.2-1.0) mg/dl Direct Bilirubin (0-0.2) mg/dl AST (13-39) U/L ALT (7-52) U/L Alkaline Phosphatase (34-104) U/L Ammonia (18-72) umol/L Troponin I High Sens (0-20) pg/ml Total Protein (6.0-8.3) gm/dl Albumin (3.4-5.0) gm/dl Globulin (2.5-4.0) gm/dl Albumin/Globulin Ratio (0.9-2) Lipase (11-82) U/L Vitamin B12 (180-914) pg/ml Folate (>5.38) ng/ml Urine Color Urine Appearance (Clear) Urine pH (4.5-7.5) Ur Specific [place]gs (1.000-1.030) Urine Protein (Negative) Urine Glucose (UA) (Negative) Urine Ketones (Negative) Urine Blood (Negative) Urine Nitrite (Negative) Urine Bilirubin (Negative) Urine Urobilinogen (Negative) Ur Leukocyte Esterase (Negative) Urine WBC (Auto) (0-5) /hpf Urine RBC (Auto) (0-2) /hpf U Hyaline Cast (Auto) (0-2) /lpf U Epithel Cells (Auto) (0-2) /hpf Urine Bacteria (Auto) (None Seen) Urine Yeast (None Prsent) Fluid Neutrophils % Fluid Comment Peritoneal Color Peritoneal Appearance Peritoneal Albumin gm/dl Stool Occult Bld Scrn (Negative) Misc Micro Test Blood Type Antibody Screen Crossmatch 07/21/24 07/21/24 07/21/24 Range/Units 08:36 08:36 08:36 WBC (4.8-10.8) K/ul RBC (4.70-6.10) M/uL Hgb (14.0-18.0) g/dl POC Hgb (14.0-18.0) g/dl Hct (42.0-52.0) % POC Hct (42-52) % MCV (80.0-100.0) fL MCH (25.0-34.0) pg MCHC (32.0-36.0) g/dL RDW Std Deviation (36.4-46.3) fL RDW Coeff of Lencho (11.5-14.5) % Plt Count (130-400) K/uL MPV (9.4-12.4) fL Immature Gran % (Auto) % Neut % (Auto) % Lymph % (Auto) % [place] % (Auto) % Eos % (Auto) % Baso % (Auto) % Neut # (Auto) (1.40-6.50) K/uL Lymph # (Auto) (1.20-3.40) K/uL [place] # (Auto) (0.11-0.59) K/uL Eos # (Auto) (0.00-0.50) K/uL Baso # (Auto) (0.00-0.20) K/uL Immature Gran # (Auto) (0.01-0.20) K/uL PT (9.0-12.0) Seconds INR (0.9-1.1) APTT (21-31) Seconds PTT Ratio VBG pH (7.36-7.41) VBG pCO2 (38-50) mmHg VBG pO2 mmHg VBG HCO3 mmol/L VBG O2 Saturation % VBG Base Excess mEq/L POC Sodium (135-144) mmol/L Sodium (136-145) mmol/L POC Potassium (3.3-5.0) mmol/L Potassium (3.5-5.1) mmol/L POC Chloride (101-112) mmol/L Chloride (98-107) mmol/L Carbon Dioxide (21-32) mmol/L POC Total CO2 (24-31) mmol/L Anion Gap (3-11) POC Anion Gap (16-25) mmol/L POC BUN (7-18) mg/dl BUN 68 H (6-23) mg/dl Creatinine 4.09 H 3.98 H (0.6-1.4) mg/dl POC Creatinine (0.6-1.3) mg/dl Est Cr Clr Drug Dosing 15.6 16.0 ml/min eGFR 14.78 BUN/Creatinine Ratio (10-20) Glucose (70-99(Fasting)) mg/dl POC Glucose (70-99) mg/dl POC Glucose (other) (70-99) mg/dl Calcium (8.6-10.3) mg/dl POC Ioniz Calcium Annetta (1.12-1.32) mmol/l Phosphorus (2.5-4.9) mg/dl Magnesium (1.7-2.4) mg/dl Iron (35-175) mcg/dl Transferrin (200-360) mg/dl Ferritin (8-388) ng/ml Total Bilirubin (0.2-1.0) mg/dl Direct Bilirubin (0-0.2) mg/dl AST (13-39) U/L ALT (7-52) U/L Alkaline Phosphatase (34-104) U/L Ammonia (18-72) umol/L Troponin I High Sens (0-20) pg/ml Total Protein (6.0-8.3) gm/dl Albumin (3.4-5.0) gm/dl Globulin (2.5-4.0) gm/dl Albumin/Globulin Ratio (0.9-2) Lipase (11-82) U/L Vitamin B12 (180-914) pg/ml Folate (>5.38) ng/ml Urine Color Urine Appearance (Clear) Urine pH (4.5-7.5) Ur Specific [place] (1.000-1.030) Urine Protein (Negative) Urine Glucose (UA) (Negative) Urine Ketones (Negative) Urine Blood (Negative) Urine Nitrite (Negative) Urine Bilirubin (Negative) Urine Urobilinogen (Negative) Ur Leukocyte Esterase (Negative) Urine WBC (Auto) (0-5) /hpf Urine RBC (Auto) (0-2) /hpf U Hyaline Cast (Auto) (0-2) /lpf U Epithel Cells (Auto) (0-2) /hpf Urine Bacteria (Auto) (None Seen) Urine Yeast (None Prsent) Fluid Neutrophils % Fluid Comment Peritoneal Color Peritoneal Appearance Peritoneal Albumin gm/dl Stool Occult Bld Scrn (Negative) Misc Micro Test Blood Type Antibody Screen Crossmatch 07/21/24 07/21/24 07/21/24 Range/Units 08:36 08:36 08:36 WBC (4.8-10.8) K/ul RBC (4.70-6.10) M/uL Hgb (14.0-18.0) g/dl POC Hgb (14.0-18.0) g/dl Hct (42.0-52.0) % POC Hct (42-52) % MCV (80.0-100.0) fL MCH (25.0-34.0) pg MCHC (32.0-36.0) g/dL RDW Std Deviation (36.4-46.3) fL RDW Coeff of Lencho (11.5-14.5) % Plt Count (130-400) K/uL MPV (9.4-12.4) fL Immature Gran % (Auto) % Neut % (Auto) % Lymph % (Auto) % [place] % (Auto) % Eos % (Auto) % Baso % (Auto) % Neut # (Auto) (1.40-6.50) K/uL Lymph # (Auto) (1.20-3.40) K/uL [place] # (Auto) (0.11-0.59) K/uL Eos # (Auto) (0.00-0.50) K/uL Baso # (Auto) (0.00-0.20) K/uL Immature Gran # (Auto) (0.01-0.20) K/uL PT (9.0-12.0) Seconds INR (0.9-1.1) APTT (21-31) Seconds PTT Ratio VBG pH (7.36-7.41) VBG pCO2 (38-50) mmHg VBG pO2 mmHg VBG HCO3 mmol/L VBG O2 Saturation % VBG Base Excess mEq/L POC Sodium (135-144) mmol/L Sodium (136-145) mmol/L POC Potassium (3.3-5.0) mmol/L Potassium (3.5-5.1) mmol/L POC Chloride (101-112) mmol/L Chloride 108 H (98-107) mmol/L Carbon Dioxide 18 L 18 L (21-32) mmol/L POC Total CO2 (24-31) mmol/L Anion Gap 8 8 (3-11) POC Anion Gap (16-25) mmol/L POC BUN (7-18) mg/dl BUN 70 H (6-23) mg/dl Creatinine (0.6-1.4) mg/dl POC Creatinine (0.6-1.3) mg/dl Est Cr Clr Drug Dosing ml/min eGFR BUN/Creatinine Ratio (10-20) Glucose (70-99(Fasting)) mg/dl POC Glucose (70-99) mg/dl POC Glucose (other) (70-99) mg/dl Calcium (8.6-10.3) mg/dl POC Ioniz Calcium Annetta (1.12-1.32) mmol/l Phosphorus (2.5-4.9) mg/dl Magnesium (1.7-2.4) mg/dl Iron (35-175) mcg/dl Transferrin (200-360) mg/dl Ferritin (8-388) ng/ml Total Bilirubin (0.2-1.0) mg/dl Direct Bilirubin (0-0.2) mg/dl AST (13-39) U/L ALT (7-52) U/L Alkaline Phosphatase (34-104) U/L Ammonia (18-72) umol/L Troponin I High Sens (0-20) pg/ml Total Protein (6.0-8.3) gm/dl Albumin (3.4-5.0) gm/dl Globulin (2.5-4.0) gm/dl Albumin/Globulin Ratio (0.9-2) Lipase (11-82) U/L Vitamin B12 (180-914) pg/ml Folate (>5.38) ng/ml Urine Color Urine Appearance (Clear) Urine pH (4.5-7.5) Ur Specific [place] (1.000-1.030) Urine Protein (Negative) Urine Glucose (UA) (Negative) Urine Ketones (Negative) Urine Blood (Negative) Urine Nitrite (Negative) Urine Bilirubin (Negative) Urine Urobilinogen (Negative) Ur Leukocyte Esterase (Negative) Urine WBC (Auto) (0-5) /hpf Urine RBC (Auto) (0-2) /hpf U Hyaline Cast (Auto) (0-2) /lpf U Epithel Cells (Auto) (0-2) /hpf Urine Bacteria (Auto) (None Seen) Urine Yeast (None Prsent) Fluid Neutrophils % Fluid Comment Peritoneal Color Peritoneal Appearance Peritoneal Albumin gm/dl Stool Occult Bld Scrn (Negative) Misc Micro Test Blood Type Antibody Screen Crossmatch 07/21/24 07/21/24 07/21/24 Range/Units 08:36 08:36 08:36 WBC 4.57 L (4.8-10.8) K/ul RBC 3.66 L (4.70-6.10) M/uL Hgb 9.2 L (14.0-18.0) g/dl POC Hgb (14.0-18.0) g/dl Hct 29.3 L (42.0-52.0) % POC Hct (42-52) % MCV 80.1 (80.0-100.0) fL MCH 25.1 (25.0-34.0) pg MCHC 31.4 L (32.0-36.0) g/dL RDW Std Deviation 53.8 H (36.4-46.3) fL RDW Coeff of Lencho 18.6 H (11.5-14.5) % Plt Count 86 L (130-400) K/uL MPV (9.4-12.4) fL Immature Gran % (Auto) % Neut % (Auto) % Lymph % (Auto) % [place] % (Auto) % Eos % (Auto) % Baso % (Auto) % Neut # (Auto) (1.40-6.50) K/uL Lymph # (Auto) (1.20-3.40) K/uL [place] # (Auto) (0.11-0.59) K/uL Eos # (Auto) (0.00-0.50) K/uL Baso # (Auto) (0.00-0.20) K/uL Immature Gran # (Auto) (0.01-0.20) K/uL PT 14.2 H (9.0-12.0) Seconds INR 1.3 H (0.9-1.1) APTT (21-31) Seconds PTT Ratio VBG pH (7.36-7.41) VBG pCO2 (38-50) mmHg VBG pO2 mmHg VBG HCO3 mmol/L VBG O2 Saturation % VBG Base Excess mEq/L POC Sodium (135-144) mmol/L Sodium 134 L 135 L (136-145) mmol/L POC Potassium (3.3-5.0) mmol/L Potassium 4.6 4.7 (3.5-5.1) mmol/L POC Chloride (101-112) mmol/L Chloride 109 H (98-107) mmol/L Carbon Dioxide (21-32) mmol/L POC Total CO2 (24-31) mmol/L Anion Gap (3-11) POC Anion Gap (16-25) mmol/L POC BUN (7-18) mg/dl BUN (6-23) mg/dl Creatinine (0.6-1.4) mg/dl POC Creatinine (0.6-1.3) mg/dl Est Cr Clr Drug Dosing ml/min eGFR BUN/Creatinine Ratio (10-20) Glucose (70-99(Fasting)) mg/dl POC Glucose (70-99) mg/dl POC Glucose (other) (70-99) mg/dl Calcium (8.6-10.3) mg/dl POC Ioniz Calcium Annetta (1.12-1.32) mmol/l Phosphorus (2.5-4.9) mg/dl Magnesium (1.7-2.4) mg/dl Iron (35-175) mcg/dl Transferrin (200-360) mg/dl Ferritin (8-388) ng/ml Total Bilirubin (0.2-1.0) mg/dl Direct Bilirubin (0-0.2) mg/dl AST (13-39) U/L ALT (7-52) U/L Alkaline Phosphatase (34-104) U/L Ammonia (18-72) umol/L Troponin I High Sens (0-20) pg/ml Total Protein (6.0-8.3) gm/dl Albumin (3.4-5.0) gm/dl Globulin (2.5-4.0) gm/dl Albumin/Globulin Ratio (0.9-2) Lipase (11-82) U/L Vitamin B12 (180-914) pg/ml Folate (>5.38) ng/ml Urine Color Urine Appearance (Clear) Urine pH (4.5-7.5) Ur Specific [place] (1.000-1.030) Urine Protein (Negative) Urine Glucose (UA) (Negative) Urine Ketones (Negative) Urine Blood (Negative) Urine Nitrite (Negative) Urine Bilirubin (Negative) Urine Urobilinogen (Negative) Ur Leukocyte Esterase (Negative) Urine WBC (Auto) (0-5) /hpf Urine RBC (Auto) (0-2) /hpf U Hyaline Cast (Auto) (0-2) /lpf U Epithel Cells (Auto) (0-2) /hpf Urine Bacteria (Auto) (None Seen) Urine Yeast (None Prsent) Fluid Neutrophils % Fluid Comment Peritoneal Color Peritoneal Appearance Peritoneal Albumin gm/dl Stool Occult Bld Scrn (Negative) Misc Micro Test Blood Type Antibody Screen Crossmatch 07/21/24 07/20/24 07/20/24 Range/Units 07:12 20:57 15:59 WBC (4.8-10.8) K/ul RBC (4.70-6.10) M/uL Hgb (14.0-18.0) g/dl POC Hgb (14.0-18.0) g/dl Hct (42.0-52.0) % POC Hct (42-52) % MCV (80.0-100.0) fL MCH (25.0-34.0) pg MCHC (32.0-36.0) g/dL RDW Std Deviation (36.4-46.3) fL RDW Coeff of Lenc[place] (11.5-14.5) % Plt Count (130-400) K/uL MPV (9.4-12.4) fL Immature Gran % (Auto) % Neut % (Auto) % Lymph % (Auto) % [place] % (Auto) % Eos % (Auto) % Baso % (Auto) % Neut # (Auto) (1.40-6.50) K/uL Lymph # (Auto) (1.20-3.40) K/uL [place] # (Auto) (0.11-0.59) K/uL Eos # (Auto) (0.00-0.50) K/uL Baso # (Auto) (0.00-0.20) K/uL Immature Gran # (Auto) (0.01-0.20) K/uL PT (9.0-12.0) Seconds INR (0.9-1.1) APTT (21-31) Seconds PTT Ratio VBG pH (7.36-7.41) VBG pCO2 (38-50) mmHg VBG pO2 mmHg VBG HCO3 mmol/L VBG O2 Saturation % VBG Base Excess mEq/L POC Sodium (135-144) mmol/L Sodium (136-145) mmol/L POC Potassium (3.3-5.0) mmol/L Potassium (3.5-5.1) mmol/L POC Chloride (101-112) mmol/L Chloride (98-107) mmol/L Carbon Dioxide (21-32) mmol/L POC Total CO2 (24-31) mmol/L Anion Gap (3-11) POC Anion Gap (16-25) mmol/L POC BUN (7-18) mg/dl BUN (6-23) mg/dl Creatinine (0.6-1.4) mg/dl POC Creatinine (0.6-1.3) mg/dl Est Cr Clr Drug Dosing ml/min eGFR BUN/Creatinine Ratio (10-20) Glucose (70-99(Fasting)) mg/dl POC Glucose 212 H 204 H 250 H (70-99) mg/dl POC Glucose (other) (70-99) mg/dl Calcium (8.6-10.3) mg/dl POC Ioniz Calcium Annetta (1.12-1.32) mmol/l Phosphorus (2.5-4.9) mg/dl Magnesium (1.7-2.4) mg/dl Iron (35-175) mcg/dl Transferrin (200-360) mg/dl Ferritin (8-388) ng/ml Total Bilirubin (0.2-1.0) mg/dl Direct Bilirubin (0-0.2) mg/dl AST (13-39) U/L ALT (7-52) U/L Alkaline Phosphatase (34-104) U/L Ammonia (18-72) umol/L Troponin I High Sens (0-20) pg/ml Total Protein (6.0-8.3) gm/dl Albumin (3.4-5.0) gm/dl Globulin (2.5-4.0) gm/dl Albumin/Globulin Ratio (0.9-2) Lipase (11-82) U/L Vitamin B12 (180-914) pg/ml Folate (>5.38) ng/ml Urine Color Urine Appearance (Clear) Urine pH (4.5-7.5) Ur Specific [place] (1.000-1.030) Urine Protein (Negative) Urine Glucose (UA) (Negative) Urine Ketones (Negative) Urine Blood (Negative) Urine Nitrite (Negative) Urine Bilirubin (Negative) Urine Urobilinogen (Negative) Ur Leukocyte Esterase (Negative) Urine WBC (Auto) (0-5) /hpf Urine RBC (Auto) (0-2) /hpf U Hyaline Cast (Auto) (0-2) /lpf U Epithel Cells (Auto) (0-2) /hpf Urine Bacteria (Auto) (None Seen) Urine Yeast (None Prsent) Fluid Neutrophils % Fluid Comment Peritoneal Color Peritoneal Appearance Peritoneal Albumin gm/dl Stool Occult Bld Scrn (Negative) Misc Micro Test Blood Type Antibody Screen Crossmatch 07/20/24 07/20/24 07/20/24 Range/Units 15:25 14:04 11:12 WBC (4.8-10.8) K/ul RBC (4.70-6.10) M/uL Hgb (14.0-18.0) g/dl POC Hgb (14.0-18.0) g/dl Hct (42.0-52.0) % POC Hct (42-52) % MCV (80.0-100.0) fL MCH (25.0-34.0) pg MCHC (32.0-36.0) g/dL RDW Std Deviation (36.4-46.3) fL RDW Coeff of Lencho (11.5-14.5) % Plt Count (130-400) K/uL MPV (9.4-12.4) fL Immature Gran % (Auto) % Neut % (Auto) % Lymph % (Auto) % [place] % (Auto) % Eos % (Auto) % Baso % (Auto) % Neut # (Auto) (1.40-6.50) K/uL Lymph # (Auto) (1.20-3.40) K/uL [place] # (Auto) (0.11-0.59) K/uL Eos # (Auto) (0.00-0.50) K/uL Baso # (Auto) (0.00-0.20) K/uL Immature Gran # (Auto) (0.01-0.20) K/uL PT (9.0-12.0) Seconds INR (0.9-1.1) APTT (21-31) Seconds PTT Ratio VBG pH (7.36-7.41) VBG pCO2 (38-50) mmHg VBG pO2 mmHg VBG HCO3 mmol/L VBG O2 Saturation % VBG Base Excess mEq/L POC Sodium (135-144) mmol/L Sodium 133 L (136-145) mmol/L POC Potassium (3.3-5.0) mmol/L Potassium 4.9 (3.5-5.1) mmol/L POC Chloride (101-112) mmol/L Chloride 108 H (98-107) mmol/L Carbon Dioxide 16 L (21-32) mmol/L POC Total CO2 (24-31) mmol/L Anion Gap 9 (3-11) POC Anion Gap (16-25) mmol/L POC BUN (7-18) mg/dl BUN 71 H (6-23) mg/dl Creatinine 4.12 H (0.6-1.4) mg/dl POC Creatinine (0.6-1.3) mg/dl Est Cr Clr Drug Dosing 15.5 ml/min eGFR 14.17 BUN/Creatinine Ratio 17.2 (10-20) Glucose 236 H (70-99(Fasting)) mg/dl POC Glucose 219 H (70-99) mg/dl POC Glucose (other) (70-99) mg/dl Calcium 8.7 (8.6-10.3) mg/dl POC Ioniz Calcium Annetta (1.12-1.32) mmol/l Phosphorus (2.5-4.9) mg/dl Magnesium (1.7-2.4) mg/dl Iron (35-175) mcg/dl Transferrin (200-360) mg/dl Ferritin (8-388) ng/ml Total Bilirubin (0.2-1.0) mg/dl Direct Bilirubin (0-0.2) mg/dl AST (13-39) U/L ALT (7-52) U/L Alkaline Phosphatase (34-104) U/L Ammonia (18-72) umol/L Troponin I High Sens (0-20) pg/ml Total Protein (6.0-8.3) gm/dl Albumin (3.4-5.0) gm/dl Globulin (2.5-4.0) gm/dl Albumin/Globulin Ratio (0.9-2) Lipase (11-82) U/L Vitamin B12 (180-914) pg/ml Folate (>5.38) ng/ml Urine Color Urine Appearance (Clear) Urine pH (4.5-7.5) Ur Specific [place] (1.000-1.030) Urine Protein (Negative) Urine Glucose (UA) (Negative) Urine Ketones (Negative) Urine Blood (Negative) Urine Nitrite (Negative) Urine Bilirubin (Negative) Urine Urobilinogen (Negative) Ur Leukocyte Esterase (Negative) Urine WBC (Auto) (0-5) /hpf Urine RBC (Auto) (0-2) /hpf U Hyaline Cast (Auto) (0-2) /lpf U Epithel Cells (Auto) (0-2) /hpf Urine Bacteria (Auto) (None Seen) Urine Yeast (None Prsent) Fluid Neutrophils % Fluid Comment Peritoneal Color Peritoneal Appearance Peritoneal Albumin gm/dl Stool Occult Bld Scrn Positive A (Negative) Misc Micro Test Blood Type Antibody Screen Crossmatch 07/20/24 07/20/24 07/19/24 Range/Units 07:15 05:33 20:37 WBC 2.94 L (4.8-10.8) K/ul RBC 3.39 L (4.70-6.10) M/uL Hgb 8.4 L (14.0-18.0) g/dl POC Hgb (14.0-18.0) g/dl Hct 27.2 L (42.0-52.0) % POC Hct (42-52) % MCV 80.2 (80.0-100.0) fL MCH 24.8 L (25.0-34.0) pg MCHC 30.9 L (32.0-36.0) g/dL RDW Std Deviation 53.3 H (36.4-46.3) fL RDW Coeff of Lencho 18.2 H (11.5-14.5) % Plt Count 68 L (130-400) K/uL MPV (9.4-12.4) fL Immature Gran % (Auto) % Neut % (Auto) % Lymph % (Auto) % [place] % (Auto) % Eos % (Auto) % Baso % (Auto) % Neut # (Auto) (1.40-6.50) K/uL Lymph # (Auto) (1.20-3.40) K/uL [place] # (Auto) (0.11-0.59) K/uL Eos # (Auto) (0.00-0.50) K/uL Baso # (Auto) (0.00-0.20) K/uL Immature Gran # (Auto) (0.01-0.20) K/uL PT (9.0-12.0) Seconds INR (0.9-1.1) APTT (21-31) Seconds PTT Ratio VBG pH (7.36-7.41) VBG pCO2 (38-50) mmHg VBG pO2 mmHg VBG HCO3 mmol/L VBG O2 Saturation % VBG Base Excess mEq/L POC Sodium (135-144) mmol/L Sodium 134 L (136-145) mmol/L POC Potassium (3.3-5.0) mmol/L Potassium 5.3 H (3.5-5.1) mmol/L POC Chloride (101-112) mmol/L Chloride 108 H (98-107) mmol/L Carbon Dioxide 18 L (21-32) mmol/L POC Total CO2 (24-31) mmol/L Anion Gap 8 (3-11) POC Anion Gap (16-25) mmol/L POC BUN (7-18) mg/dl BUN 72 H (6-23) mg/dl Creatinine 4.17 H (0.6-1.4) mg/dl POC Creatinine (0.6-1.3) mg/dl Est Cr Clr Drug Dosing 15.3 ml/min eGFR 13.97 BUN/Creatinine Ratio 17.3 (10-20) Glucose 216 H (70-99(Fasting)) mg/dl POC Glucose 237 H 167 H (70-99) mg/dl POC Glucose (other) (70-99) mg/dl Calcium 8.6 (8.6-10.3) mg/dl POC Ioniz Calcium Annetta (1.12-1.32) mmol/l Phosphorus 4.6 (2.5-4.9) mg/dl Magnesium 2.1 (1.7-2.4) mg/dl Iron (35-175) mcg/dl Transferrin (200-360) mg/dl Ferritin (8-388) ng/ml Total Bilirubin 1.2 H (0.2-1.0) mg/dl Direct Bilirubin (0-0.2) mg/dl AST 17 (13-39) U/L ALT 14 (7-52) U/L Alkaline Phosphatase 105 H (34-104) U/L Ammonia (18-72) umol/L Troponin I High Sens (0-20) pg/ml Total Protein 5.1 L (6.0-8.3) gm/dl Albumin 2.7 L (3.4-5.0) gm/dl Globulin 2.4 L (2.5-4.0) gm/dl Albumin/Globulin Ratio 1.1 (0.9-2) Lipase (11-82) U/L Vitamin B12 (180-914) pg/ml Folate (>5.38) ng/ml Urine Color Urine Appearance (Clear) Urine pH (4.5-7.5) Ur Specific [place] (1.000-1.030) Urine Protein (Negative) Urine Glucose (UA) (Negative) Urine Ketones (Negative) Urine Blood (Negative) Urine Nitrite (Negative) Urine Bilirubin (Negative) Urine Urobilinogen (Negative) Ur Leukocyte Esterase (Negative) Urine WBC (Auto) (0-5) /hpf Urine RBC (Auto) (0-2) /hpf U Hyaline Cast (Auto) (0-2) /lpf U Epithel Cells (Auto) (0-2) /hpf Urine Bacteria (Auto) (None Seen) Urine Yeast (None Prsent) Fluid Neutrophils % Fluid Comment Peritoneal Color Peritoneal Appearance Peritoneal Albumin gm/dl Stool Occult Bld Scrn (Negative) Misc Micro Test Blood Type Antibody Screen Crossmatch 07/19/24 07/19/24 07/19/24 Range/Units 16:31 13:55 11:26 WBC (4.8-10.8) K/ul RBC (4.70-6.10) M/uL Hgb 8.6 L (14.0-18.0) g/dl POC Hgb (14.0-18.0) g/dl Hct 27.6 L (42.0-52.0) % POC Hct (42-52) % MCV (80.0-100.0) fL MCH (25.0-34.0) pg MCHC (32.0-36.0) g/dL RDW Std Deviation (36.4-46.3) fL RDW Coeff of Lencho (11.5-14.5) % Plt Count (130-400) K/uL MPV (9.4-12.4) fL Immature Gran % (Auto) % Neut % (Auto) % Lymph % (Auto) % [place] % (Auto) % Eos % (Auto) % Baso % (Auto) % Neut # (Auto) (1.40-6.50) K/uL Lymph # (Auto) (1.20-3.40) K/uL [place] # (Auto) (0.11-0.59) K/uL Eos # (Auto) (0.00-0.50) K/uL Baso # (Auto) (0.00-0.20) K/uL Immature Gran # (Auto) (0.01-0.20) K/uL PT (9.0-12.0) Seconds INR (0.9-1.1) APTT (21-31) Seconds PTT Ratio VBG pH (7.36-7.41) VBG pCO2 (38-50) mmHg VBG pO2 mmHg VBG HCO3 mmol/L VBG O2 Saturation % VBG Base Excess mEq/L POC Sodium (135-144) mmol/L Sodium (136-145) mmol/L POC Potassium (3.3-5.0) mmol/L Potassium (3.5-5.1) mmol/L POC Chloride (101-112) mmol/L Chloride (98-107) mmol/L Carbon Dioxide (21-32) mmol/L POC Total CO2 (24-31) mmol/L Anion Gap (3-11) POC Anion Gap (16-25) mmol/L POC BUN (7-18) mg/dl BUN (6-23) mg/dl Creatinine (0.6-1.4) mg/dl POC Creatinine (0.6-1.3) mg/dl Est Cr Clr Drug Dosing ml/min eGFR BUN/Creatinine Ratio (10-20) Glucose (70-99(Fasting)) mg/dl POC Glucose 187 H 97 (70-99) mg/dl POC Glucose (other) (70-99) mg/dl Calcium (8.6-10.3) mg/dl POC Ioniz Calcium [place]netta (1.12-1.32) mmol/l Phosphorus (2.5-4.9) mg/dl Magnesium (1.7-2.4) mg/dl Iron (35-175) mcg/dl Transferrin (200-360) mg/dl Ferritin (8-388) ng/ml Total Bilirubin (0.2-1.0) mg/dl Direct Bilirubin (0-0.2) mg/dl AST (13-39) U/L ALT (7-52) U/L Alkaline Phosphatase (34-104) U/L Ammonia (18-72) umol/L Troponin I High Sens (0-20) pg/ml Total Protein (6.0-8.3) gm/dl Albumin (3.4-5.0) gm/dl Globulin (2.5-4.0) gm/dl Albumin/Globulin Ratio (0.9-2) Lipase (11-82) U/L Vitamin B12 (180-914) pg/ml Folate (>5.38) ng/ml Urine Color Urine Appearance (Clear) Urine pH (4.5-7.5) Ur Specific [place] (1.000-1.030) Urine Protein (Negative) Urine Glucose (UA) (Negative) Urine Ketones (Negative) Urine Blood (Negative) Urine Nitrite (Negative) Urine Bilirubin (Negative) Urine Urobilinogen (Negative) Ur Leukocyte Esterase (Negative) Urine WBC (Auto) (0-5) /hpf Urine RBC (Auto) (0-2) /hpf U Hyaline Cast (Auto) (0-2) /lpf U Epithel Cells (Auto) (0-2) /hpf Urine Bacteria (Auto) (None Seen) Urine Yeast (None Prsent) Fluid Neutrophils % Fluid Comment Peritoneal Color Peritoneal Appearance Peritoneal Albumin gm/dl Stool Occult Bld Scrn (Negative) Misc Micro Test Blood Type Antibody Screen Crossmatch 07/19/24 07/19/24 07/19/24 Range/Units 07:54 06:05 04:58 WBC 2.42 L (4.8-10.8) K/ul RBC 2.50 L (4.70-6.10) M/uL Hgb 5.9 L* (14.0-18.0) g/dl POC Hgb (14.0-18.0) g/dl Hct 19.7 L* (42.0-52.0) % POC Hct (42-52) % MCV 78.8 L (80.0-100.0) fL MCH 23.6 L (25.0-34.0) pg MCHC 29.9 L (32.0-36.0) g/dL RDW Std Deviation 54.8 H (36.4-46.3) fL RDW Coeff of Lencho 19.0 H (11.5-14.5) % Plt Count 75 L (130-400) K/uL MPV (9.4-12.4) fL Immature Gran % (Auto) % Neut % (Auto) % Lymph % (Auto) % [place] % (Auto) % Eos % (Auto) % Baso % (Auto) % Neut # (Auto) (1.40-6.50) K/uL Lymph # (Auto) (1.20-3.40) K/uL [place] # (Auto) (0.11-0.59) K/uL Eos # (Auto) (0.00-0.50) K/uL Baso # (Auto) (0.00-0.20) K/uL Immature Gran # (Auto) (0.01-0.20) K/uL PT 15.0 H (9.0-12.0) Seconds INR 1.4 H (0.9-1.1) APTT (21-31) Seconds PTT Ratio VBG pH (7.36-7.41) VBG pCO2 (38-50) mmHg VBG pO2 mmHg VBG HCO3 mmol/L VBG O2 Saturation % VBG Base Excess mEq/L POC Sodium (135-144) mmol/L Sodium 135 L (136-145) mmol/L POC Potassium (3.3-5.0) mmol/L Potassium 4.8 (3.5-5.1) mmol/L POC Chloride (101-112) mmol/L Chloride 109 H (98-107) mmol/L Carbon Dioxide 18 L (21-32) mmol/L POC Total CO2 (24-31) mmol/L Anion Gap 8 (3-11) POC Anion Gap (16-25) mmol/L POC BUN (7-18) mg/dl BUN 68 H (6-23) mg/dl Creatinine 4.24 H (0.6-1.4) mg/dl POC Creatinine (0.6-1.3) mg/dl Est Cr Clr Drug Dosing 15.1 ml/min eGFR 13.70 BUN/Creatinine Ratio 16.0 (10-20) Glucose 74 (70-99(Fasting)) mg/dl POC Glucose 83 83 (70-99) mg/dl POC Glucose (other) (70-99) mg/dl Calcium 8.6 (8.6-10.3) mg/dl POC Ioniz Calcium Annetta (1.12-1.32) mmol/l Phosphorus (2.5-4.9) mg/dl Magnesium 2.0 (1.7-2.4) mg/dl Iron 11 L (35-175) mcg/dl Transferrin 240 (200-360) mg/dl Ferritin 19.7 (8-388) ng/ml Total Bilirubin 0.8 D (0.2-1.0) mg/dl Direct Bilirubin (0-0.2) mg/dl AST 22 (13-39) U/L ALT 15 (7-52) U/L Alkaline Phosphatase 100 (34-104) U/L Ammonia (18-72) umol/L Troponin I High Sens (0-20) pg/ml Total Protein 5.0 L D (6.0-8.3) gm/dl Albumin 2.6 L (3.4-5.0) gm/dl Globulin 2.4 L (2.5-4.0) gm/dl Albumin/Globulin Ratio 1.1 (0.9-2) Lipase (11-82) U/L Vitamin B12 272 (180-914) pg/ml Folate > 22.30 (>5.38) ng/ml Urine Color Urine Appearance (Clear) Urine pH (4.5-7.5) Ur Specific [place] (1.000-1.030) Urine Protein (Negative) Urine Glucose (UA) (Negative) Urine Ketones (Negative) Urine Blood (Negative) Urine Nitrite (Negative) Urine Bilirubin (Negative) Urine Urobilinogen (Negative) Ur Leukocyte Esterase (Negative) Urine WBC (Auto) (0-5) /hpf Urine RBC (Auto) (0-2) /hpf U Hyaline Cast (Auto) (0-2) /lpf U Epithel Cells (Auto) (0-2) /hpf Urine Bacteria (Auto) (None Seen) Urine Yeast (None Prsent) Fluid Neutrophils % Fluid Comment Peritoneal Color Peritoneal Appearance Peritoneal Albumin gm/dl Stool Occult Bld Scrn (Negative) Misc Micro Test Blood Type Antibody Screen Crossmatch 07/18/24 07/18/24 07/18/24 Range/Units 21:02 16:48 15:42 WBC (4.8-10.8) K/ul RBC (4.70-6.10) M/uL Hgb (14.0-18.0) g/dl POC Hgb (14.0-18.0) g/dl Hct (42.0-52.0) % POC Hct (42-52) % MCV (80.0-100.0) fL MCH (25.0-34.0) pg MCHC (32.0-36.0) g/dL RDW Std Deviation (36.4-46.3) fL RDW Coeff of Lencho (11.5-14.5) % Plt Count (130-400) K/uL MPV (9.4-12.4) fL Immature Gran % (Auto) % Neut % (Auto) % Lymph % (Auto) % [place] % (Auto) % Eos % (Auto) % Baso % (Auto) % Neut # (Auto) (1.40-6.50) K/uL Lymph # (Auto) (1.20-3.40) K/uL [place] # (Auto) (0.11-0.59) K/uL Eos # (Auto) (0.00-0.50) K/uL Baso # (Auto) (0.00-0.20) K/uL Immature Gran # (Auto) (0.01-0.20) K/uL PT (9.0-12.0) Seconds INR (0.9-1.1) APTT (21-31) Seconds PTT Ratio VBG pH 7.32 L (7.36-7.41) VBG pCO2 29 L (38-50) mmHg VBG pO2 28 mmHg VBG HCO3 15 mmol/L VBG O2 Saturation < 60.0 % VBG Base Excess -9.8 mEq/L POC Sodium (135-144) mmol/L Sodium (136-145) mmol/L POC Potassium (3.3-5.0) mmol/L Potassium (3.5-5.1) mmol/L POC Chloride (101-112) mmol/L Chloride (98-107) mmol/L Carbon Dioxide (21-32) mmol/L POC Total CO2 (24-31) mmol/L Anion Gap (3-11) POC Anion Gap (16-25) mmol/L POC BUN (7-18) mg/dl BUN (6-23) mg/dl Creatinine (0.6-1.4) mg/dl POC Creatinine (0.6-1.3) mg/dl Est Cr Clr Drug Dosing ml/min eGFR BUN/Creatinine Ratio (10-20) Glucose (70-99(Fasting)) mg/dl POC Glucose 106 H (70-99) mg/dl POC Glucose (other) (70-99) mg/dl Calcium (8.6-10.3) mg/dl POC Ioniz Calcium Annetta (1.12-1.32) mmol/l Phosphorus (2.5-4.9) mg/dl Magnesium (1.7-2.4) mg/dl Iron (35-175) mcg/dl Transferrin (200-360) mg/dl Ferritin (8-388) ng/ml Total Bilirubin (0.2-1.0) mg/dl Direct Bilirubin (0-0.2) mg/dl AST (13-39) U/L ALT (7-52) U/L Alkaline Phosphatase (34-104) U/L Ammonia (18-72) umol/L Troponin I High Sens (0-20) pg/ml Total Protein (6.0-8.3) gm/dl Albumin (3.4-5.0) gm/dl Globulin (2.5-4.0) gm/dl Albumin/Globulin Ratio (0.9-2) Lipase (11-82) U/L Vitamin B12 (180-914) pg/ml Folate (>5.38) ng/ml Urine Color Dark Yellow Urine Appearance Turbid A (Clear) Urine pH 5.0 (4.5-7.5) Ur Specific [place] 1.013 (1.000-1.030) Urine Protein 1+ H (Negative) Urine Glucose (UA) Negative (Negative) Urine Ketones Negative (Negative) Urine Blood 3+ H (Negative) Urine Nitrite Negative (Negative) Urine Bilirubin Negative (Negative) Urine Urobilinogen Negative (Negative) Ur Leukocyte Esterase 3+ H (Negative) Urine WBC (Auto) >50 H (0-5) /hpf Urine RBC (Auto) >20 H (0-2) /hpf U Hyaline Cast (Auto) >20 H (0-2) /lpf U Epithel Cells (Auto) >20 H (0-2) /hpf Urine Bacteria (Auto) 4+ H (None Seen) Urine Yeast Present A (None Prsent) Fluid Neutrophils % Fluid Comment Peritoneal Color Peritoneal Appearance Peritoneal Albumin gm/dl Stool Occult Bld Scrn (Negative) Misc Micro Test Pending Blood Type Antibody Screen Crossmatch 07/18/24 07/18/24 07/18/24 Range/Units 14:42 14:35 14:30 WBC 3.90 L (4.8-10.8) K/ul RBC 3.43 L (4.70-6.10) M/uL Hgb 8.2 L (14.0-18.0) g/dl POC Hgb 9.5 L (14.0-18.0) g/dl Hct 27.3 L (42.0-52.0) % POC Hct 28 L (42-52) % MCV 79.6 L (80.0-100.0) fL MCH 23.9 L (25.0-34.0) pg MCHC 30.0 L (32.0-36.0) g/dL RDW Std Deviation 55.2 H (36.4-46.3) fL RDW Coeff of Lencho 19.2 H (11.5-14.5) % Plt Count 144 (130-400) K/uL MPV 12.1 (9.4-12.4) fL Immature Gran % (Auto) 0.5 % Neut % (Auto) 72.8 % Lymph % (Auto) 10.3 % [place] % (Auto) 15.9 % Eos % (Auto) 0.0 % Baso % (Auto) 0.5 % Neut # (Auto) 2.84 (1.40-6.50) K/uL Lymph # (Auto) 0.40 L (1.20-3.40) K/uL [place] # (Auto) 0.62 H (0.11-0.59) K/uL Eos # (Auto) 0.00 (0.00-0.50) K/uL Baso # (Auto) 0.02 (0.00-0.20) K/uL Immature Gran # (Auto) 0.02 (0.01-0.20) K/uL PT 14.9 H (9.0-12.0) Seconds INR 1.4 H (0.9-1.1) APTT 36 H (21-31) Seconds PTT Ratio 1.3 VBG pH (7.36-7.41) VBG pCO2 (38-50) mmHg VBG pO2 mmHg VBG HCO3 mmol/L VBG O2 Saturation % VBG Base Excess mEq/L POC Sodium 136 (135-144) mmol/L Sodium 134 L (136-145) mmol/L POC Potassium 5.0 (3.3-5.0) mmol/L Potassium 5.0 (3.5-5.1) mmol/L POC Chloride 108 (101-112) mmol/L Chloride 109 H (98-107) mmol/L Carbon Dioxide 16 L (21-32) mmol/L POC Total CO2 16 L (24-31) mmol/L Anion Gap 9 (3-11) POC Anion Gap 18.0 (16-25) mmol/L POC BUN 64 H (7-18) mg/dl BUN 64 H (6-23) mg/dl Creatinine 4.24 H (0.6-1.4) mg/dl POC Creatinine 4.7 H* (0.6-1.3) mg/dl Est Cr Clr Drug Dosing 15.1 ml/min eGFR 13.70 BUN/Creatinine Ratio 15.1 (10-20) Glucose 99 (70-99(Fasting)) mg/dl POC Glucose (70-99) mg/dl POC Glucose (other) 94 (70-99) mg/dl Calcium 9.2 (8.6-10.3) mg/dl POC Ioniz Calcium Annetta 1.28 (1.12-1.32) mmol/l Phosphorus (2.5-4.9) mg/dl Magnesium 2.0 (1.7-2.4) mg/dl Iron (35-175) mcg/dl Transferrin (200-360) mg/dl Ferritin (8-388) ng/ml Total Bilirubin 1.4 H (0.2-1.0) mg/dl Direct Bilirubin 0.5 H (0-0.2) mg/dl AST 23 (13-39) U/L ALT 17 (7-52) U/L Alkaline Phosphatase 120 H (34-104) U/L Ammonia 23.0 (18-72) umol/L Troponin I High Sens 14.6 (0-20) pg/ml Total Protein 6.3 (6.0-8.3) gm/dl Albumin 3.2 L (3.4-5.0) gm/dl Globulin (2.5-4.0) gm/dl Albumin/Globulin Ratio (0.9-2) Lipase 37 (11-82) U/L Vitamin B12 (180-914) pg/ml Folate (>5.38) ng/ml Urine Color Urine Appearance (Clear) Urine pH (4.5-7.5) Ur Specific Baggs (1.000-1.030) Urine Protein (Negative) Urine Glucose (UA) (Negative) Urine Ketones (Negative) Urine Blood (Negative) Urine Nitrite (Negative) Urine Bilirubin (Negative) Urine Urobilinogen (Negative) Ur Leukocyte Esterase (Negative) Urine WBC (Auto) (0-5) /hpf Urine RBC (Auto) (0-2) /hpf U Hyaline Cast (Auto) (0-2) /lpf U Epithel Cells (Auto) (0-2) /hpf Urine Bacteria (Auto) (None Seen) Urine Yeast (None Prsent) Fluid Neutrophils % Fluid Comment Peritoneal Color Peritoneal Appearance Peritoneal Albumin gm/dl Stool Occult Bld Scrn (Negative) Misc Micro Test Blood Type A Positive Antibody Screen NEGATIVE Crossmatch See Detail Diagnostic Findings Cervical Spine CT 07/18/24 14:26 CT cervical spine wo con CT DOSE: 2591.36 mGy.cm CLINICAL HISTORY: 78 years-old Male with trauma. Acute head and neck injury status post fall COMPARISON: Head CT of same day TECHNIQUE: Multiple axial CT images of the cervical spine were obtained without contrast. A dose lowering technique was utilized adhering to the principles of ALARA. FINDINGS: Mild multilevel intervertebral disc space narrowing. Moderate disc space narrowing C6-C7. Gual-wk-zxbgpbej and spondylotic spurring with multilevel facet arthrosis, severe on the left at C5-C6. Moderate degeneration at C1-C2. Multilevel neural foraminal narrowing, suboptimally assessed by CT technique. The cervical soft tissues appear unremarkable. Small calcified foci noted within the thyroid. The visualized lung apices appear clear. IMPRESSION: No acute cervical spine fracture or subluxation. ACT 112: Negative or not required by law. The above report was generated using voice recognition software. It may contain grammatical, syntax or spelling errors. Electronically signed by: Zackary Roman M.D. 07/18/2024 3:25 PM Chest X-Ray 07/18/24 14:26 XR chest 1V portable CLINICAL HISTORY: trauma COMPARISON STUDY: 08/27/2022 FINDINGS: Stable CABG. Heart size and pulmonary vasculature are normal. No effusion, consolidation, or pneumothorax. No acute osseous finding seen. IMPRESSION: No acute findings. ACT 112: Negative or not required by law. Electronically signed by: Jose Sorensen M.D. 07/18/2024 3:[address] 07/18/24 14:26 CT OF THE HEAD WITHOUT CONTRAST CLINICAL HISTORY: trauma COMPARISON STUDY: No previous studies for comparison. TECHNIQUE: Helical axial images of the head were obtained without IV contrast. Automated exposure control was utilized for the study. A dose lowering technique was utilized adhering to the principles of ALARA. FINDINGS: No acute intracranial hemorrhage, midline shift or mass effect is present. White matter hypodensity suggests small vessel disease The ventricular system is unremarkable. The basal cisterns are patent. No extra-axial collections are present. There are no findings to suggest acute dural sinus thrombosis or acute territorial infarct. No significant calvarial abnormalities are present. Visualized portions of the sinuses and mastoid air cells are clear. IMPRESSION: 1. No acute intracranial findings. 2. No calvarial fractures. ACT 112: Negative or not required by law. Electronically signed by: Dominic Beth M.D. 07/18/2024 3:25 PM Pelvis X-Ray 07/18/24 14:26 XR pelvis 1-2V routine CLINICAL HISTORY: trauma COMPARISON: 03/23/2024 FINDINGS: There are stable soft tissue calcifications or foreign bodies in the inguinal regions bilaterally. No fracture or dislocation. Hip joint spaces are maintained. IMPRESSION: No fracture seen. ACT 112: Negative or not required by law. Electronically signed by: Jose Sorensen M.D. 07/18/2024 3:15 PM Abdomen/Pelvis CT 07/18/24 14:37 CT OF THE ABDOMEN AND PELVIS WITHOUT CONTRAST CLINICAL HISTORY: fall COMPARISON STUDY: CT of the abdomen and pelvis March 23, 2024. TECHNIQUE: Axial images of the abdomen and pelvis were obtained without IV contrast. Images were reviewed in the axial, sagittal, and coronal planes. Automated exposure control was utilized for the study. A dose lowering technique was utilized adhering to the principles of ALARA. FINDINGS: Visualized portions of the lung bases are unremarkable. No hemoperitoneum or pneumoperitoneum is present. Large volume abdominal and pelvic ascites has increased when compared to prior CT. Evaluation of the solid a bdominal viscera is suboptimal on this unenhanced exam. There is no evidence for traumatic injury to the liver, spleen, adrenal glands, kidneys or pancreas. There are calcified granulomas within liver and spleen. The liver is cirrhotic. Splenomegaly is unchanged. There is no hydronephrosis. There is no evidence for a bowel obstruction. The bladder is distended. Ascites within bilateral inguinal hernias is present. There is no evidence for a bowel obstruction. Note is made of colonic diverticulosis without evidence for acute diverticulitis. No acute lumbar spine, pelvic or hip fractures are present. IMPRESSION: 1. No acute traumatic findings within the abdomen or pelvis on unenhanced exam. 2. Cirrhotic liver. Large volume ascites. Stable splenomegaly. 3. Colonic diverticulosis. No evidence for acute diverticulitis. 4. No acute fractures. ACT 112: Negative or not required by law. Electronically signed by: Dominic Beth M.D. 07/18/2024 3:31 PM Bladder Ultrasound 07/20/24 00:31 EXAM: US retro bladder ltd CLINICAL HISTORY: Bladder residual after catheter placement Collapsed bladder seen around catheter. Abdominal ascites seen. TECHNIQUE: Ultrasound limited retroperitoneal/urinary bladder performed in grayscale imaging. COMPARISON: 12/11/2022 FINDINGS: Moderate fluid is identified in the pelvis showing faint echoes Urinary bladder: Urinary bladder appears to be collapsed, with lumen not visualized, however morris's bulb seen. IMPRESSION: 1. Fluid is identified in the pelvis with faint echoes likely free fluid/ ascites. This was also present in the prior examination. 2. Morris catheter is identified likely in urinary bladder, however, the lumen of the bladder is not well visualized likely due to a completely collapsed status, with no residual volume 3. CT scan may be obtained for further evaluation. 4. Morris's catheter was not seen in the prior examination. Electronically signed by Humza Leos 07-20-2024 01:51 AM Paracentesis Ultrasound 07/21/24 00:00 Ultrasound guided paracentesis. Clinical indication: ascites. Procedure: Procedure and risks were explained. Informed consent was obtained from the patient. A final timeout was completed. Sonographic examination revealed a moderate amount of ascites. A pocket was identified in the left lower quadrant. The abdomen was prepped and draped in sterile fashion. 1% lidocaine was utilized for skin anesthesia. Utilizing ultrasound guidance, a 5 Armenian safety centesis catheter was introduced into the pocket of ascites and 5000 ml of yellow fluid drained with 1 L sent to the lab. Ultrasound images were obtained. The catheter was removed and Band-Aid applied. The patient tolerated the procedure well. Vital signs will be monitored prior to discharge. IMPRESSION: Ultrasound guided paracentesis as described above. Performed, dictated, and signed by Fabián Clayton PA-C; to be co-signed by Dr. Dominic Beth. Electronically signed by: Dominic Beth M.D. 07/21/2024 3:51 PM PG Care Time/CCT Total # of Minutes Spent Total Time Spent with Patient: Total time spent is greater than 50% in coordination of care (as documented) at patient's floor/unit and/or counseling patient: I spent 130 minutes overall addressing this case: 15 min in medical data review/discussion with referring provider(s) and/or preparation for the visit 15 min in direct interaction with the patient/exam 60 min in Advance Care Planning/Goals of Care discussions as detailed above in note (must be >16min) 15 min in subsequent review and synthesis of assessment and plan 25min communicating with other providers regarding the patient's case: nursing, dietary/nutrition, primary team, care mgt Advanced Care Planning 78513 Advanced Care Planning 30 Min [id number] Advanced Care Planning Additional 30 [place] [address] IN/OBS CONSULT LVL 5,80M (25 - SIGNIFICANT, SEPARATELY IDENTIFIABLE ) Patient Type New Medical Decision Making High Complexity Diagnoses Recurrent falls R29.6 Abdominal pain, generalized R10.84 Advanced care planning/counseling discussion Z71.89 Palliative care by specialist Z51.5 Encounter for hospice care discussion Z71.89 Additional Codes Advanced Care Planning - 62661 Advanced Care Planning 30 Min: 39703 Advanced Care Planning 30 Min ([id number]) Advanced Care Planning - 18131 Advanced Care Planning Additional 30 Min: 66732 Advanced Care Planning Additional 30 Min ([id number])
[2024-07-21] MEDS: MIDODRINE HCL 10 MG TAB PO SCH (18:02)
[2024-07-21 18:47] LABS: Appearance Peritoneal Fluid Clear; Color Peritoneal Fluid Pale Yellow; Lymphocytes, Fluid 18 %; Mono,Macrophage,Mesothelial 68 %; Neutrophils, Fluid 14 %; RBC Peritoneal Fluid Auto < 2000 /uL; WBC Peritoneal Fluid Auto 83 /ul (0-300)
[2024-07-21] MEDS: MIDODRINE HCL 10 MG TAB PO ONE (20:21)
[2024-07-22 06:52] LABS: Hematocrit (blood only) 26.3 % (42.0-52.0); Hemoglobin 8.3 g/dl (14.0-18.0); Mean Corpuscular Hemoglobin 25.3 pg (25.0-34.0); Mean Corpuscular Hgb Conc 31.6 g/dL (32.0-36.0); Mean Corpuscular Volume 80.2 fL (80.0-100.0); Platelet Count 74 K/uL (130-400); RDW Standard Deviation 54.3 fL (36.4-46.3); Red Blood Count 3.28 M/uL (4.70-6.10); White Blood Count 3.67 K/ul (4.8-10.8)
[2024-07-22 07:13] LABS: BUN Creatinine Ratio 16.9 (10-20); Calcium 9.4 mg/dl (8.6-10.3); Creatinine Clr Calc Pharmacy 16.6 ml/min; Magnesium 2.3 mg/dl (1.7-2.4); Phosphorus 3.6 mg/dl (2.5-4.9); Potassium 4.5 mmol/L (3.5-5.1)
[2024-07-22] MEDS: PANTOprazole 40 MG TAB PO SCH (09:22)
--- NOTE | 2024-07-22 11:35 | Nephrology Progress Note ---
Date of Service July 22, 2024 Assessment & Plan (1) DELIA (acute kidney injury): Plan: patient with the acute kidney injury on CKD likely ischemic ATN in setting of possible GI bleed and anemia. Admission creatinine of 4.24. Creatinine very slightly down to 3.9 today. Creatinine was 2.7 on 05/23/2024, which is already very severely advanced disease in a liver patient. Potassium improved now after blood transfusion. not a candidate for dialysis. hospice is very reasonable here. - Continue lactulose until we get 2-3 bowel movements a day. - had albumin for his paracentesis; would not start standing albumin or midodrine in a patient about to go on hospice and thus soon for now labs >given consideration of palliative care, diet/fluid limits lifted - monitor input output and daily weight as feasible/tolerated in hospital - avoid nephrotoxins Will sign off; no nephro follow up needed on hospice; care coordinated w/ Dr Lew via labs, not starting albumin/midodrine, goals of care; we are in agreement (2) Anemia: Plan: patient admitted with hemoglobin of 5.9 likely due to GI bleed setting of portal hypertensive gastropathy. patient received 2 units of blood transfusion. Patient was evaluated by GI and is on PPIs. hemoglobin of 8.3 today which is stable. Monitor hemoglobin in hospital but suggest no further transfusions in this clinical setting (3) Cirrhosis: Plan: patient with decompensated cirrhosis. Diuretics on hold due to acute renal failure. If renal function does not improve with the blood transfusion, consider HRS treatment versus hospice Admission and Anticipated Discharge Date Admission Date: July 18, 2024 Subjective pt had first good night of sleep in years he tells me; feels calm, rested; overall best in a while. still weak, still exertional dyspnea. Review of Systems 2 Review of Systems: All systems reviewed & are unremarkable except as noted in Subjective Physical Exam 2 Constitutional: well developed, + cachectic and + frail appearing; no acute distress Eyes: EOM intact bilaterally ENMT: Mouth: + dry oral mucous membranes Respiratory: normal respiratory effort Auscultation: + diminished lung sounds (amira BL bases) Cardiovascular: Rate/Rhythm: + tachycardic (irregular) Heart Sounds: + murmur Extremities: + edema (trace) Gastrointestinal (Abdomen): Inspection/Auscultation: + abdomen distended and normal bowel sounds Percussion/Palpation: abdomen soft and + ascites; abdomen nontender Musculoskeletal: Extremities: strength 5/5 throughout Skin: no rashes, warm and dry Results & Data Vital Signs (Past 12 Hours) Vital Signs Temp Pulse Pulse Resp BP BP Pulse Ox 07/22/24 08:00 07/22/24 07:24 101 H 07/22/24 07:19 36.5 C 66 19 108/56 L 98 07/22/24 02:44 36.3 C L 104 H 16 114/64 100 O2 Del Method 07/22/24 08:00 Room Air 07/22/24 07:24 07/22/24 07:19 Room Air 07/22/24 02:44 Room Air Laboratory Results 07/22/24 05:51 07/22/24 05:51
--- NOTE | 2024-07-22 15:08 | Hospitalist Progress Note ---
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 Jean, CKD stage III, anemia, decompensated cirrhosis with marked ascites/esophageal varices/portal gastropathy, history of C. difficile, gastrointestinal bleeding previously on Eliquis and recent EGD with gastric neuroendocrine tumor stage II [follows Dr. linda hooks]. He was sent to the hospital by his oncologist due to his elevated creatinine and low hemoglobin level. He reports falling about 10 days ago [facility] and about 1 day ago [facility] hitting his left arm and left lateral trunk. He denies hitting head or loss of consciousness. He reports not taking his lactulose for about 6 days [facility], and did not have bowel movement for about 3 to 4 days [facility]. His other main complaints are poor sleep, constantly feeling tired for the last couple of years and not feeling rested. He reports overall declining health. He is being managed for the following: Fall: Patient reports falling 10 days ago [facility] and 1 day ago [facility], see above. Admitting C-spine CT/CXR/CT head/pelvic x-ray with no acute finding. Patient reports pain under control. Fall precaution. Cirrhosis decompensated Gastric neuroendocrine tumor Possible GI bleed MELD-Na: 25 on admission EGD prior to this admission on 09/2023 showed large varices banded x 3 and portal HTN gastropathy Underwent EGD 2023 which revealed gastric neuroendocrine tumor stage II - s/p lanreotide x 2 o 05/12/24 and 06/09/24 Outpatient hemoglobin of 7.7. Patient noted to have hemoglobin of 5.9 on 07/19, s/p 2 Units prbc and IV iron 07/20, Hb has be stable > 8.5. Anemia secondary to multifactorial causes including underlying renal disease, possible GI source and other chronic diseases. Aspirin and Eliquis on hold [Last dose at 10 AM of 07/18], continue IV PPI, GI on board. FOBT +ve, c/w conservative Mx. s/p 2 units prbc so far w/ stable HnH. Transfuse for hemoglobin less than 7 or for symptomatic anemia. Discussed with patient's hematology Dr. Linda Hooks 07/19, recommends IV iron in addition to blood transfusion. Admitting CTAP with cirrhotic liver and large volume ascites. Patient with no abdominal tenderness on exam, patient/his son does not want any fluid restriction or dietary restriction. Status post paracentesis 07/21, 5 L fluid taken out, follow-up studies. s/p IV albumin john-paracentesis. On midodrine now per nephro to help w/ low bp. Possible UTI: Patient started on Rocephin at presentation, UCx no growth, dc rocephin 07/21. Follow admitting blood culture. Acute on Chronic CKD 3 baseline cr 1.7-1.8 Cr. baseline of 1.7, was 4.1 at cancer center [facility], and 4.2 in the ER. Diuretics on hold. Nephrology on board, appreciate recommendation. Heart failure with recovered EF iso ischemic cardiomyopathy LVEF 30% -->55-60% 2022 CAD status post CABG x3 (PAEZ to LAD, AO to RCA, AO to OM1 05/2021) * Multivessel CAD including mid RCA 90% lesion with mild diffuse disease, 80% occlusion of the proximal LAD with heavily calcified lesion, and 100% [employer] of left circumflex with [id number] and iayin-[id number] collaterals, per cath 05/27/2021 at [facility] cardiac history, with recovered EF% Prior use of KATHI/ARB dc'd due to CKD/AKIContinue Metoprolol succinate 100mg BID Daily weights. 03/25/24: Echo: Mild concentric LVH, EF 55 to 60%, grade 1 Diastolic dysfunction, mild to moderate mitral regurgitation Continue statin Post op afib Hx of CVA -Home eliquis and aspirin on HOLD for possible GI bleed T2DM, insulin dependent last a1c 6.4 ISS with accuchecks, at home on trulicity Monitor and avoid hypoglycemia Hypothyroidism continue synthroid Goals of care discussion: Patient's son and patient both were at bedside. Patient states that he wants his son to be POA, they are working on papers. Patient's son name is Norris Francois Jr. They do not want any dietary restriction or fluid restriction. They want to have palliative care evaluation for guidance/goals of care discussion. Until then they want to continue conservati ve management for now including telemetry/blood draws/blood transfusion/other noninvasive measures. He is DNR/DNI and they understand the poor prognosis. They are interested in Pleurx catheter for ascites fluid, will have to see if IR here is able to place the catheter or he needs to follow-up with IR as an outpatient. No pleurx cath available inhospital. Pt will have to f/u w/ IR as OP. d/w palliativ care 07/21, pt would like to go home w/ hospice likely [facility] once medically feasible. Will continue to manage his pain with focus of comfort in mind and continue to treat him conservatively until dc to home w/ hospice which likely will happen [facility]. Pt and his son don't want heart monitor. Pt will be transferred to med/surg. DVT ppx: teds, scds, hold Eliquis for suspected GI bleed Line: PIV x 2 FEN/GI: NPO CODE: FULL Dispo: From home, likely dc [facility] to home w/ hospice likely [facility] Admission and Anticipated Discharge Date Admission Date: July 18, 2024 Subjective Patient was seen and examined at bedside. Patient was lying in bed, on room air, NAD, resting comfortably. Patient's son at bedside was also updated on plan of care. Patient appears fairly happy and satisfied as he has been having very good last few nights and pain-free. Patient denies chest pain/palpitation/shortness of breath. Denies belly pain. Patient is now moving bowels on lactulose. Physical Exam Physical Exam: General- oriented x 3, not in distress, speaks in sentences with no effort or accessory muscle use weak, frail, Appears sick. Head- atraumatic Eyes- PERRL, EOMI, anicteric, + pallor ENT- oropharynx clear Neck- supple, no JVD, no adenopathy, no thyromegaly; carotids +2/2, no bruits appreciated Lungs- clear to auscultation bilaterally, no rales/wheezes Heart- normal rate, regular rhythm; (+) grade 3/6 holosystolic murmur, no gallop, no rub appreciated Abdomen- normal bowel sounds, moderately distended, soft, nontender Extremities- grade 1 lower extremity edema, no calf tenderness; peripheral pulses intact (+) small BL knee abrasions Neuro- alert, oriented x 3; CN 2-12 grossly intact; motor 5/5 bilaterally;sensation 100% on all extremities; no other gross focal neurologic deficits Skin- warm & dry Results & Data Results & Data Vital Signs (Past 12 Hours) Vital Signs Temp Pulse Pulse Resp BP Pulse Ox O2 Del Method 07/22/24 08:00 Room Air 07/22/24 07:24 101 H 07/22/24 07:19 36.5 C 66 19 108/56 L 98 Room Air
[2024-07-23 06:45] LABS: Hematocrit (blood only) 34.7 % (42.0-52.0); Hemoglobin 10.6 g/dl (14.0-18.0); Mean Corpuscular Hgb Conc 30.5 g/dL (32.0-36.0); Mean Corpuscular Volume 81.8 fL (80.0-100.0); Mean Platelet Volume 11.3 fL (9.4-12.4); Platelet Count 204 K/uL (130-400); RDW Coefficient of Variation 19.9 % (11.5-14.5); RDW Standard Deviation 54.7 fL (36.4-46.3); Red Blood Count 4.24 M/uL (4.70-6.10); White Blood Count 9.31 K/ul (4.8-10.8)
[2024-07-23 07:12] LABS: BUN Creatinine Ratio 18.2 (10-20); Calcium 9.9 mg/dl (8.6-10.3); Creatinine Clr Calc Pharmacy 17.9 ml/min; Magnesium 2.4 mg/dl (1.7-2.4); Phosphorus 3.8 mg/dl (2.5-4.9); Potassium 4.2 mmol/L (3.5-5.1)
[2024-07-23] MEDS: chlorproMAZINE HCL 25 MG TAB PO PRN (08:06)
[2024-07-23 11:47] VITALS: RESP 16; TEMP 98.4; O2SAT 97
--- NOTE | 2024-07-23 14:21 | Discharge Summary ---
Date of Service July 23, 2024 Admission HPI Per Admitting Provider This is a 78-year-old male with complex significant past medical history of CAD status post CABG x3 (PAEZ to LAD, AO to RCA, AO to OM1 05/2021), ischemic cardiomyopathy LVEF 30% postop CABG, PAF postoperative CABG, history of multiple small CVA involving left anterior frontal lobe and left posterior temporal lobe following surgery, RBBB, HTN, HLD, T2DM, hypothyroidism, mild aortic sclerosis, mild mitral valve leaflet prolapse with mild MR, history of moderate size left pleural effusion post CABG, status post thoracentesis with recurrent left pleural effusion requiring multiple hospitalizations status post thoracic duct embolization 09/06/[address] 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 Linda Hooks. He was over at the cancer center today for routine appointment with Dr. Hooks. He is reporting breastbone area pain intermittently, not currently. He denies black tarry stools. He admits to having bright red blood streaking on paper after wiping recently. He does endorse nausea, poor appetite and uses zofran regularly. Pt denies diarrhea, is supposed to take lactulose 3x daily but stopped this 3days ago and hasn't moved his bowels in about 3 days. Does have a bdominal distension chronically, unknown if any changes in weight. Pt reports issues with urination, straining, weak stream but denies dysuria. Pt admits to fall about 10 days ago and hit the left arm scraping the skin off. Fell again yesterday and again last evening and had more bleeding after the scab ripped off from that already injured area on the arm. Pts biggest complaint today is regarding poor sleep, feels that he cannot get any rest for the past 2 years. Previously used benadrly HS but was told he shouldn't by previous doctor. Was given a script for trazodone but was afraid to try it. Son, Oscar, is present and supports the history. On admission, pt Cr. is 4.24, BUN 64. WBC 3.9, Hgb 8.2, plt 144, INR 1.4. UA appears to be grossly infected today. Admission Exam Per Admitting Provider Constitutional: No fever, sweats or chills, + insomnia, Eyes: No diplopia, no worsening or blurred vision ENT: normal hearing, no trouble swallowing Respiratory: No cough, sputum, dyspnea at rest or on exertion Cardiovascular: No chest pain, tightness or palpitations Abdomen: + as per HPI, + nausea intermittently, epigastric/upper abdomen pain, nausea, no vomiting, no diarrhea or constipation, last BM was 3 days ago. Musculoskeletal: No joint pain, calf pain, swelling Neurologic: + generalized weakness, numbness/tingling, or balance problems Psychiatric: No anxiety or depression, + intermittently tearful during exam Skin: No rash or itch Principal Diagnosis Cirrhosis decompensated Gastric neuroendocrine tumor Possible GI bleed Discharge Exam General- oriented x 3, not in distress, Lungs- clear to auscultation bilaterally, no rales/wheezes Heart- normal rate, regular rhythm; (+) grade 3/6 holosystolic murmur, no gallop, no rub appreciated Abdomen- normal bowel sounds, slightly distended Extremities- grade 1 lower extremity edema, no calf tenderness; peripheral pulses intact Neuro- alert, oriented x 3; CN 2-12 grossly intact; motor 5/5 bilaterally;sensation 100% on all extremities; no other gross focal neurologic deficits Skin- warm & dry Discharge Data Allergies Allergy/AdvReac Type Severity Reaction Status Date / Time Sulfa (Sulfonamide Allergy Unknown CHILDHOOD Verified 09/13/23 08:32 Antibiotics) ALLERGY--CAN'T REMEMBER tramadol AdvReac Severe SEVERE Verified 09/13/23 08:32 VOMITING omeprazole AdvReac Intermediate PER PT Verified 09/13/23 08:32 "DID THE OPPOSITE, MADE ME WORSE". Consultations 07/18/24 16:22 ED Decision to Admit Stat 07/18/24 16:51 Consult Gastroenterology Routine Consult Nephrology Routine 07/18/24 17:34 Consult Palliative Care Routine Ordered Studies 07/18/24 14:26 CT cervical spine wo con Stat CT head/brain wo con Stat 07/18/24 14:37 CT abd pelvis wo con Stat 07/20/24 00:31 US retro bladder ltd Stat 07/21/24 00:00 IR paracentesis abd w/img US Routine Hospital Course (1) Acute on chronic anemia: (2) Cirrhosis of liver with ascites: (3) Acute renal failure: (4) Esophageal varices: (5) CAD (coronary artery disease): (6) Ischemic cardiomyopathy: (7) Diabetes mellitus: (8) Hypothyroid: (9) Hyperlipidemia: (10) Hypertension: (11) Atrial fibrillation: (12) 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: 78-year-old male with PMH of CAD status post CABG x 3, ischemic cardiomyopathy LVEF 30% post CABG, PAF perioperatively CABG, multiple small CVA involving left anterior frontal lobe and left posterior temporal lobe following surgery, RBBB, HTN, HLD, T2DM, hypothyroidism, moderate size left pleural effusion post CABG status post thoracentesis with recurrent left pleural effusion requiring multiple hospitalizations status post thoracic duct embolization 09/06/[address] Jean, CKD stage III, anemia, decompensated cirrhosis with marked ascites/esophageal varices/portal gastropathy, history of C. difficile, gastrointestinal bleeding previously on Eliquis and recent EGD with gastric ne uroendocrine tumor stage II [follows Dr. linda hooks]. He was sent to the hospital by his oncologist due to his elevated creatinine and low hemoglobin level. He reports falling about 10 days ago PRIVATE PILOT and about 1 day ago PRIVATE PILOT hitting his left arm and left lateral trunk. He denies hitting head or loss of consciousness. He reports not taking his lactulose for about 6 days PRIVATE PILOT, and did not have bowel movement for about 3 to 4 days PRIVATE PILOT. His other main complaints are poor sleep, constantly feeling tired for the last couple of years and not feeling rested. He reports overall declining health. He is being managed for the following: Fall: Patient reports falling 10 days ago PRIVATE PILOT and 1 day ago PRIVATE PILOT, see above. Admitting C-spine CT/CXR/CT head/pelvic x-ray with no acute finding. Patient reports pain under control. Fall precaution. Cirrhosis decompensated Gastric neuroendocrine tumor Possible GI bleed MELD-Na: 25 on admission EGD prior to this admission on 09/2023 showed large varices banded x 3 and portal HTN gastropathy Underwent EGD 2023 which revealed gastric neuroendocrine tumor stage II - s/p lanreotide x 2 o 05/12/24 and 06/09/24 Outpatient hemoglobin of 7.7. Patient noted to have hemoglobin of 5.9 on 07/19, s/p 2 Units prbc and IV iron 07/20, Hb has be stable > 8.5. Anemia secondary to multifactorial causes including underlying renal disease, possible GI source and other chronic diseases. Aspirin and Eliquis on hold [Last dose at 10 AM of 07/18], continue IV PPI, GI on board. FOBT +ve, c/w conservative Mx. s/p 2 units prbc so far w/ stable HnH. Transfuse for hemoglobin less than 7 or for symptomatic anemia. Discussed with patient's hematology Dr. Lnida Hooks 07/19, recommends IV iron in addition to blood transfusion. Admitting CTAP with cirrhotic liver and large volume ascites. Patient with no abdominal tenderness on exam, patient/his son does not want any fluid restriction or dietary restriction. Status post paracentesis 07/21, 5 L fluid taken out, s/p IV albumin john-paracentesis. On midodrine now per nephro to help w/ low bp. Possible UTI: Patient started on Rocephin at presentation, UCx no growth, dc rocephin 07/21. Acute on Chronic CKD 3 baseline cr 1.7-1.8 Patient creatinine was around 3.5-4 during the hospitalization. Nephrology was consulted for comanagement; plan was made for hospice care at home. no need for follow up with nephrology at discharge. Heart failure with recovered EF iso ischemic cardiomyopathy LVEF 30% -->55-60% 2022 CAD status post CABG x3 (PAEZ to LAD, AO to RCA, AO to OM1 05/2021) * Multivessel CAD including mid RCA 90% lesion with mild diffuse disease, 80% occlusion of the proximal LAD with heavily calcified lesion, and 100% [employer] of left circumflex with ilpc-ob-cows and [id number] collaterals, per cath 05/27/2021 at [facility] cardiac history, with recovered EF% Prior use of KATHI/ARB dc'd due to CKD/AKIContinue Metoprolol succinate 100mg BID Daily weights. 03/25/24: Echo: Mild concentric LVH, EF 55 to 60%, grade 1 Diastolic dysfunction, mild to moderate mitral regurgitation Continue statin Post op afib Hx of CVA -Home eliquis and aspirin on HOLD for possible GI bleed; follow up with pcp/hospice for further management. T2DM, insulin dependent last a1c 6.4 ISS with accuchecks, at home on trulicity Monitor and avoid hypoglycemia Hypothyroidism continue synthroid Goals of care discussion:Goals of care was discussed with the patient and patient's son during the hospitalization. Home hospice was set up. Patient was discharged home on hospice care. Please note the above document was generated using voice recognition software. It may contain grammatical, syntax or spelling errors. Any formal questions or concerns about the content, text or information contained within the body of this dictation should be directly addressed to the provider for clarification Total Time Total Time Spent Total Time Spent (In Minutes): 34 Total Time Includes: Examination of the Patient, Discharge Planning, Medication Reconciliation, Communication With Other Providers and Other Discharge Plan Discharge Items Patient Disposition: Hospice - Home Reason For Visit: DECOMPENSATED CIRRHOSIS, ARF Discharge Diagnosis: Cirrhosis decompensated Gastric neuroendocrine tumor Possible GI bleed Activity: Resume your previous activity Non-emergency contact: Primary Care Provider Call non-emergency contact if: you have any medication questions and your symptoms worsen Follow-up/Referrals: Lia Meadows MD [Primary Care Provider] - Diet: Regular Addtl Attending Provider Instructions: You are being discharged on home hospice. Eliquis and aspirin is currently on hold due to suspicion of bleeding. You can discuss with hospice provider/PCP if you wish to continue it as outpatient. You are prescribed oxycodone for pain control. You are also prescribed lactulose to be taken as needed for constipation. Pending Studies at Discharge: No Stand-Alone Forms: [facility] Medications and DC Order Prescriptions: New pantoprazole 40 mg Tablet,Delayed Release (Dr/Ec) 40 mg PO BID 60 Days Qty: 120 0RF oxycodone 5 mg Tablet 5 mg PO Q6H PRN (Reason: pain) Qty: 20 0RF midodrine 10 mg Tablet 10 mg PO TID@0800,1300,1800 30 Days Qty: 90 0RF lactulose 20 gram/30 mL Solution 20 g PO QID PRN (Reason: constipation) Qty: 600 0RF Continued nitroglycerin [Nitrostat] 0.4 mg Tablet, Sublingual 0.4 mg sublingual DIRECTED PRN (Reason: Chest Pain) Patient Comments: pt states has not had to use atorvastatin 40 mg Tablet 40 mg PO QAM Qty: 30 0RF ondansetron HCl 4 mg Tablet 4 mg PO Q8H PRN (Reason: Nausea) Qty: 10 0RF metoprolol succinate 100 mg Tablet Extended Release 24 Hr 100 mg PO BID 30 Days Qty: 60 0RF levothyroxine 88 mcg Tablet 88 mcg PO DAILYBB Qty: 30 0RF ascorbic acid (vitamin C) [Vitamin C] 500 mg Tablet 500 mg PO QAM Qty: 30 0RF furosemide 20 mg tablet 20 mg PO QAM Qty: 30 0RF insulin glargine 100 unit/mL (3 mL) Insulin Pen 38 unit SUBCUT HS Qty: 15 0RF cholecalciferol (vitamin D3) [Vitamin D3] 50 mcg (2,000 unit) Capsule 50 mcg PO QAM Qty: 30 0RF Trulicity 1.5 mg/0.5 mL Pen Injector 3 mg SUBCUT WK 30 Days Qty: 2 0RF Rx Instructions: TAKES ON SUNDAY EVENING Discontinued aspirin 81 mg tablet,delayed release (DR/EC) 81 mg PO 3XWK 30 Days Qty: 14 0RF Rx Instructions: SUN, SUN, & SUN. spironolactone 50 mg tablet 50 mg PO DAILY Qty: 30 0RF Eliquis 5 mg tablet 5 mg PO BID Qty: 60 0RF Discharge Orders: Discharge Order (Routine); Ordered 07/23/24 Ordered By: Harrison Conte/Other Patient Handouts: Managing Type 2 Diabetes Admission Data Admit Date/Time: 07/18/24 16:51 Attending Provider: Harrison Irwin Admit Provider: Hugo Castro Primary Care Provider: Lia Meadows Other Providers: [facility]; Hugo Castro; Hernandez Higgins I; Kayce Holliday
[2024-07-23 14:46] VITALS: BP 111/66; PULSE 100
== END 2024-07-23 16:05 | disposition hospice, home (50) | DRG 432 ==
LOC: ED 14:04 → SUATTDRO 16:51 → 2S 16:51